=== PATIENT | female | born 1950 | race Caucasian/White ===

== ENCOUNTER 2016-03-23 13:00 | Emergency (ER) | payer MEDICARE, MEDICAID ==
[2016-03-23] MEDS ORDERED: DIAZEPAM 5 MG TABLET PO ONE (13:33)
[2016-03-23 14:21] LABS: ABSOLUTE LYMPHOCYTES (AUTO) 0.6 10^3/uL (0.5-4.7); ABSOLUTE MONOCYTES (AUTO) 0.4 10^3/uL (0.1-1.4); ABSOLUTE NEUT (AUTO) 6.6 10^3/uL (1.7-8.2); BASOPHILS % (AUTO) 0.2 % (0-2); EOSINOPHILS % (AUTO) 0.2 % (0-6); HEMATOCRIT 37.7 % (36.0-47.0); HEMOGLOBIN 12.7 g/dL (12.0-15.5); HGB HCT DIFFERENCE 0.4; LYMPHOCYTES % (AUTO) 7.9 % (13-45); MEAN CORPUSCULAR HEMOGLOBIN 30.2 pg (27.0-33.4); MEAN CORPUSCULAR HGB CONC 33.7 g/dL (32.0-36.0); MEAN CORPUSCULAR VOLUME 90 fl (80-97); MONOCYTES % (AUTO) 4.8 % (3-13); RED CELL DISTRIBUTION WIDTH 15.7 % (11.5-14.0); SEGMENTED NEUTROPHILS % (AUTO) 86.9 % (42-78); WHITE BLOOD COUNT 7.6 10^3/uL (4.0-10.5)
[2016-03-23 14:33] LABS: ALANINE AMINOTRANSFERASE 22 U/L (9-52); ALBUMIN 3.4 g/dL (3.5-5.0); ALKALINE PHOSPHATASE 134 U/L (38-126); ANION GAP 15 (5-19); ASPARTATE AMINO TRANSFERASE 28 U/L (14-36); BILIRUBIN,TOTAL 0.5 mg/dL (0.2-1.3); BLOOD UREA NITROGEN 15 mg/dL (7-20); CALCIUM 9.4 mg/dL (8.4-10.2); CARBON DIOXIDE 20 mmol/L (22-30); CHLORIDE 102 mmol/L (98-107); CREATINE KINASE 379 U/L (30-135); CREATININE RESULT 1.31 mg/dL (0.52-1.25); GLUCOSE 101 mg/dL (75-110); POTASSIUM 4.4 mmol/L (3.6-5.0); SODIUM 136.9 mmol/L (137-145); TOTAL PROTEIN 6.7 g/dL (6.3-8.2)
[2016-03-23 14:45] LABS: CREATINE KINASE MB 2.29 ng/mL (<4.55)
[2016-03-23 14:46] LABS: TROPONIN I < 0.012 ng/mL
[2016-03-23] MEDS ORDERED: HYDROMORPHONE HCL INJ/PF 2 MG/ML AMPULE IV ONE ×3 (14:48→17:38)
[2016-03-23] MEDS: MAGNESIUM SULFATE/D5W 100 ML IV SCH ×2 (18:34→20:47)
[2016-03-23] MEDS ORDERED: MAGNESIUM OXIDE 400 MG TABLET PO ONE (21:03)
--- NOTE | 2016-03-23 21:05 | ER Document Report ---
[id number]: This is 65-year-old female with a ileostomy due to Crohn's disease who presents stating she's had increased ileostomy output and is dehydrated and having muscle cramps. She states she's having diffuse arm and leg cramps, particularly in her feet which is relieved by standing up. She states she is restless and unable to sit still due to her cramping. She's had no fever. No vomiting. She denies abdominal pain. No recent antibiotic use. She states the bag is filling up several times a day which is unusual for her. She states the fluid is been green and watery. No blood. TRAVEL OUTSIDE OF THE [place] IN LAST 30 DAYS: No - Related Data Allergies/Adverse Reactions: codeine Allergy (Verified 03/23/16 21:08) pregabalin [From Lyrica] Allergy (Verified 03/23/16 21:08) Past Medical History - General Information source: Patient - Social History Smoking Status: Unknown if Ever Smoked Frequency of alcohol use: None Drug Abuse: None Family History: None Pulmonary Medical History: Reports: Hx COPD GI Medical History: Reports: Hx Crohn's Disease, Hx Gastroesophageal Reflux Disease Skin Medical History: Reports Hx MRSA Past Surgical History: Reports: Hx Abdominal Surgery - ostomy, Hx Cholecystectomy, Hx Hysterectomy, Hx Orthopedic Surgery - feet - Immunizations Hx Diphtheria, Pertussis, Tetanus Vaccination: No Review of Systems - Review of Systems Constitutional: Malaise, Weakness. denies: Fever Cardiovascular: Lightheaded. denies: Chest pain Respiratory: denies: Short of breath Gastrointestinal: denies: Vomiting, Blood streaked bowels Genitourinary: denies: Retention Musculoskeletal: denies: Leg swelling Hematologic/Lymphatic: denies: Swollen glands Neurological/Psychological: denies: Numbness, Tingling Physical Exam - Vital signs Vitals: Resp Pulse Ox 18 88 L 03/23/16 13:25 03/23/16 13:25 - General General appearance: Alert, Anxious - HEENT Head: Normocephalic Pupils: PERRL Mucous membranes: Normal Pharynx: Normal Neck: Normal - Respiratory Respiratory status: No respiratory distress Breath sounds: Normal - Cardiovascular Rhythm: Regular - Abdominal Inspection: Normal Distension: No distension Bowel sounds: Normal Tenderness: Nontender, Other - ostomy with watery green output - Back Back: Normal - Extremities General upper extremity: Normal inspection. No: Edema General lower extremity: Normal inspection. No: Edema - Neurological Neuro grossly intact: Yes Orientation: AAOx4 - Psychological Associated symptoms: Anxious - Skin Skin Temperature: Warm Skin Moisture: Dry Skin Color: Normal Course - Re-evaluation Re-evalutation: 03/23/16 22:12 Patient is well-appearing but anxious, restless, repeatedly asking for Dilaudid. I initially gave her 0.5 and she states "that's just a drop of water. " Patient found to be hypomagnesemic. The magnesium was repleted in the ER both IV and oral route. Patient is feeling better. She will be discharged home. She can follow-up regarding her increased output from ostomy if it persists. - Vital Signs Vital signs: Temp Pulse Resp BP Pulse Ox 98.1 F 16 93/68 L 96 03/23/16 21:50 03/23/16 21:48 03/23/16 21:48 03/23/16 21:48 - Laboratory Result Diagrams: 03/23/16 13:30 03/23/16 13:30 Laboratory results interpreted by me: 03/23/16 03/23/16 03/23/16 13:30 13:30 13:30 RDW 15.7 H Seg Neutrophils % 86.9 H Lymphocytes % 7.9 L Sodium 136.9 L Carbon Dioxide 20 L Creatinine 1.31 H Est GFR ( Amer) 50 L Est GFR (Non-Af Amer) 41 L Magnesium 1.3 L Alkaline Phosphatase 134 H Creatine Kinase 379 H Albumin 3.4 L Urine Protein 03/23/16 20:53 RDW Seg Neutrophils % Lymphocytes % Sodium Carbon Dioxide Creatinine Est GFR ( Amer) Est GFR (Non-Af Amer) Magnesium Alkaline Phosphatase Creatine Kinase Albumin Urine Protein 30 H Discharge - Discharge Clinical Impression: Hypomagnesemia, Muscle cramping Condition: Stable Disposition: HOME, SELF-CARE Additional Instructions: your magnesium level was low. Follow up with your doctor tomorrow for further evaluation of your increased ostomy output. Return if you have fever, increased pain or any new concerns. Prescriptions: Magnesium Oxide 400 mg PO DAILY #5 tablet Referrals: ENMANUEL SANCHEZ PA-C [Primary Care Provider] - Follow up as needed
[2016-03-23 21:51] VITALS: BP 93/68
[2016-03-23 21:57] LABS: APPEARANCE,URINE CLEAR; BILIRUBIN,URINE NEGATIVE (NEGATIVE); GLUCOSE, URINE NEGATIVE (NEGATIVE); KETONES,URINE NEGATIVE (NEGATIVE); LEUKOCYTE ESTERASE,URINE NEGATIVE (NEGATIVE); NITRITE,URINE NEGATIVE (NEGATIVE); PROTEIN,URINE 30 mg/dL (NEGATIVE); URINE SPECIFIC GRAVITY 1.046; UROBILINOGEN,URINE NEGATIVE mg/dL (<2.0)
--- NOTE | 2016-03-24 09:43 | EKG REPORT ---
SEVERITY:- ABNORMAL ECG - SINUS RHYTHM CHRISTOPHE, CONSIDER BIATRIAL ABNORMALITIES PROBABLE LEFT VENTRICULAR HYPERTROPHY : Confirmed by: Fozia Hooks MD 24-Mar-2016 09:42:07
== END 2016-03-23 22:10 | disposition home or self-care (01) ==
LOC: ER 13:00
DX: E83.42 Hypomagnesemia (principal); R25.2 Cramp and spasm; F41.9 Anxiety disorder, unspecified; R53.1 Weakness; J44.9 Chronic obstructive pulmonary disease, unspecified; K50.90 Crohn's disease, unspecified, without complications; K21.9 Gastro-esophageal reflux disease without esophagitis; Z86.14 Personal history of Methicillin resistant Staphylococcus aureus infection; Z90.49 Acquired absence of other specified parts of digestive tract; Z90.710 Acquired absence of both cervix and uterus; Z88.6 Allergy status to analgesic agent; Z93.2 Ileostomy status
CPT/HCPCS: 93005; 36591; 96376; 99285; 51701; 96375; 96365; 96366; 36415; 82553; 82550; 83735; 85025; 80053; 81001; 84484; 71010; 74177; 93010; A9270 ×2; J1170; J3475

== ENCOUNTER 2016-06-26 21:48 | Emergency (ER) | payer MEDICARE, MEDICAID ==
--- NOTE | 2016-06-26 22:18 | ER Document Report ---
ED GI/ - General Mode of Arrival: Medic Information source: Patient TRAVEL OUTSIDE OF THE [place] IN LAST 30 DAYS: No - HPI Patient complains to provider of: Diarrhea Associated symptoms: Other - See above <DOUGLAS ALBERTS - Last Filed: 06/27/16 03:27> <TONIA ELLIS - Last Filed: 06/28/16 21:15> - General Chief Complaint: Diarrhea Stated Complaint: diarrhea Notes: Patient is a 66 year old female, with a past medical history including Crohn's disease, who presents to the emergency department via EMS from [facility] complaining of diarrhea. Patient has an ileostomy that has been filling up recently with mostly liquid, about every 15 minutes. Patient states the ileostomy was done about 20 years ago and was revised about 2 years ago. Last week patient had an endoscopy performed by Dr Lambert and was told she had some cholitis in her stomach. Patient also complains of constant muscle cramping and RUQ abdominal pain. Patient admits to having poor fluid intake which she blames on pain from her pancreatitis. Patient states she is at [facility] because she is unable to care for herself properly. (DOUGLAS ALBERTS) - Related Data Allergies/Adverse Reactions: codeine Allergy (Verified 03/23/16 21:08) pregabalin [From Lyrica] Allergy (Verified 03/23/16 21:08) Past Medical History - General Information source: Patient - Social History Smoking Status: Unknown if Ever Smoked Family History: None, Reviewed & Not Pertinent Pulmonary Medical History: Reports: Hx COPD GI Medical History: Reports: Hx Crohn's Disease, Hx Gastroesophageal Reflux Disease Skin Medical History: Reports Hx MRSA Past Surgical History: Reports: Hx Abdominal Surgery - ostomy, Hx Cholecystectomy, Hx Hysterectomy, Hx Orthopedic Surgery - feet - Immunizations Hx Diphtheria, Pertussis, Tetanus Vaccination: No <DOUGLAS ALBERTS - Last Filed: 06/27/16 03:27> Review of Systems - Review of Systems Constitutional: No symptoms reported EENT: No symptoms reported Cardiovascular: No symptoms reported Respiratory: No symptoms reported Gastrointestinal: See HPI, Abdominal pain, Diarrhea, Poor fluid intake Genitourinary: No symptoms reported Female Genitourinary: No symptoms reported Musculoskeletal: See HPI, Other - muscle cramps Skin: No symptoms reported Hematologic/Lymphatic: No symptoms reported Neurological/Psychological: No symptoms reported -: Yes All other systems reviewed and negative <DOUGLAS ALBERTS - Last Filed: 06/27/16 03:27> Physical Exam - Vital signs Interpretation: Normal - General General appearance: Appears well, Alert - HEENT Head: Normocephalic, Atraumatic - Respiratory Respiratory status: No respiratory distress Chest status: Nontender Breath sounds: Normal Chest palpation: Normal - Cardiovascular Rhythm: Regular Heart sounds: Normal auscultation Murmur: No - Abdominal Inspection: Normal, Other - normal output in ileostomy bag Distension: No distension Bowel sounds: Normal Tenderness: Nontender. No: Guarding, Rebound, Other - rigidity Organomegaly: No organomegaly - Extremities General upper extremity: Normal inspection General lower extremity: Normal inspection - Neurological Neuro grossly intact: Yes Cognition: Normal Orientation: AAOx4 Kiran Coma Scale Eye Opening: Spontaneous [place] Coma Scale Verbal: Oriented [place] Coma Scale Motor: Obeys Commands [place] Coma Scale Total: 15 Speech: Normal - Psychological Associated symptoms: Normal affect, Normal mood - Skin Skin Temperature: Warm Skin Moisture: Dry Skin Color: Normal <DOUGLAS ALBERTS - Last Filed: 06/27/16 03:27> Course - Laboratory Result Diagrams: 06/26/16 22:00 06/26/16 22:00 <DOUGLAS ALBERTS - Last Filed: 06/27/16 03:27> - Laboratory Result Diagrams: 06/26/16 22:00 06/26/16 22:00 <TONIA ELLIS - Last Filed: 06/28/16 21:15> - Re-evaluation Re-evalutation: 06/27/16 00:21 presents emergency Department with a chief complaint of chronic abdominal pain secondary to Crohn's disease she says she's in a detention because she hasn' t taking care of herself. She has an ileostomy placed for Crohn's greater than 20 years ago which has been revised as recently as a year ago. She sees GI here and just saw last week with a scope. On ED arrival she denies any abdominal pain says that her legs are cramping and her toes are cramping and it wakes her up in the middle the night. Asked her she was drinking plenty of fluids and she is refusing to drink water at the [facility]. She's not had any vomiting. She is demanding narcotics for these muscle cramps which I told her I'm not going to do. Her belly is soft her ileostomy has decent output there is no associated blood in it so guarding rebound rigidity or obstruction. Patient very verbally abusive to the nurse attempted to get her blood drawn labs. She kicked the nurse when the nurse was trying to get a urine specimen so the nurse backed off. Patient is refusing a urine specimen at this time. Labs are nonacute no acute clinical concerns for surgical abdomen. Will be discharged to home oral hydration for primary care physician in one to 2 days and discussed reasons for ED return sooner 06/27/16 00:28 (TONIA ELLIS) - Vital Signs Vital signs: Temp Pulse Resp BP Pulse Ox 99.0 F 79 16 114/76 96 06/27/16 01:50 06/27/16 01:50 06/27/16 01:50 06/27/16 01:50 06/27/16 01:50 - Laboratory Laboratory results interpreted by me: 06/26/16 06/26/16 22:00 22:00 RDW 14.5 H Seg Neutrophils % 82.5 H Lymphocytes % 8.4 L Carbon Dioxide 17 L Anion Gap 22 H Creatinine 1.87 H Est GFR ( Amer) 33 L Est GFR (Non-Af Amer) 27 L Glucose 142 H Total Protein 8.4 H Discharge <DOUGLAS ALBERTS - Last Filed: 06/27/16 03:27> <TONIA ELLIS - Last Filed: 06/28/16 21:15> - Discharge Clinical Impression: increased ileostomy output, chronic pain with history of Crohn's Condition: Stable Disposition: HOME, SELF-CARE Referrals: ENMANUEL SANCHEZ PA-C [Primary Care Provider] - Follow up tomorrow (In one to 2 days return for increasing worsening or new symptoms) Scribe Attestation: 06/28/16 21:15 i personally performed the services described in the documentation, reviewed the documentation recorded by my scribe in my presence and accurately and completely records my words and actions (TONIA ELLIS) Scribe Documentation - Scribe Written by Wilber:: wilber Nolasco, 06/27/16, 0124 acting as scribe for :: Primitivo <DOUGLAS ALBERTS - Last Filed: 06/27/16 03:27>
[2016-06-26] MEDS ORDERED: NORMAL SALINE 500 ML IV ONE (22:26)
[2016-06-26 22:32] LABS: ABSOLUTE LYMPHOCYTES (AUTO) 0.6 10^3/uL (0.5-4.7); ABSOLUTE MONOCYTES (AUTO) 0.6 10^3/uL (0.1-1.4); BASOPHILS % (AUTO) 0.2 % (0-2); EOSINOPHILS % (AUTO) 0.7 % (0-6); HEMATOCRIT 41.6 % (36.0-47.0); HEMOGLOBIN 13.8 g/dL (12.0-15.5); HGB HCT DIFFERENCE -0.2; LYMPHOCYTES % (AUTO) 8.4 % (13-45); MEAN CORPUSCULAR HEMOGLOBIN 31.1 pg (27.0-33.4); MEAN CORPUSCULAR VOLUME 94 fl (80-97); MONOCYTES % (AUTO) 8.2 % (3-13); RED BLOOD COUNT 4.42 10^6/uL (3.72-5.28); RED CELL DISTRIBUTION WIDTH 14.5 % (11.5-14.0); SEGMENTED NEUTROPHILS % (AUTO) 82.5 % (42-78); WHITE BLOOD COUNT 7.2 10^3/uL (4.0-10.5)
[2016-06-26 22:36] LABS: ALANINE AMINOTRANSFERASE 23 U/L (9-52); ALBUMIN 4.9 g/dL (3.5-5.0); ALKALINE PHOSPHATASE 125 U/L (38-126); ASPARTATE AMINO TRANSFERASE 33 U/L (14-36); BILIRUBIN,DIRECT 0.3 mg/dL (0.0-0.4); BILIRUBIN,TOTAL 0.4 mg/dL (0.2-1.3); BLOOD UREA NITROGEN 15 mg/dL (7-20); CALCIUM 9.9 mg/dL (8.4-10.2); CARBON DIOXIDE 17 mmol/L (22-30); CHLORIDE 105 mmol/L (98-107); CREATININE RESULT 1.87 mg/dL (0.52-1.25); GLUCOSE 142 mg/dL (75-110); LIPASE 97.9 U/L (23-300); POTASSIUM 3.8 mmol/L (3.6-5.0); SODIUM 144.1 mmol/L (137-145); TOTAL PROTEIN 8.4 g/dL (6.3-8.2)
[2016-06-26 22:45] LABS: ANION GAP 22 (5-19)
[2016-06-27] MEDS ORDERED: HEPARIN SOD (PORCINE) 1 UNIT/ML PF 3 ML SYRINGE IV ONE (01:42)
[2016-06-27 01:59] VITALS: BP 114/76
== END 2016-06-27 02:00 | disposition home or self-care (01) ==
LOC: ER 21:48
DX: K50.90 Crohn's disease, unspecified, without complications (principal); R19.7 Diarrhea, unspecified; R10.11 Right upper quadrant pain; G89.29 Other chronic pain; K85.90 Acute pancreatitis without necrosis or infection, unspecified; M62.838 Other muscle spasm; J44.9 Chronic obstructive pulmonary disease, unspecified; Z93.2 Ileostomy status; Z88.5 Allergy status to narcotic agent; Z88.6 Allergy status to analgesic agent; Z86.14 Personal history of Methicillin resistant Staphylococcus aureus infection; Z90.49 Acquired absence of other specified parts of digestive tract; Z90.710 Acquired absence of both cervix and uterus; Z98.890 Other specified postprocedural states
CPT/HCPCS: 36415; 36591; 74022; 80053; 83690; 85025; 99285

== ENCOUNTER 2016-06-27 23:07 | Inpatient (IN) | payer MEDICARE, MEDICAID ==
[2016-06-27] MEDS ORDERED: NORMAL SALINE 1000 ML 1,000 ML IV ONE (23:22)
[2016-06-27] MEDS ORDERED: DICYCLOMINE HCL INJ 20 MG/2 ML AMPULE IM ONE (23:22)
[2016-06-27] MEDS ORDERED: ONDANSETRON HCL INJ/PF 4 MG/2 ML SDV IV ONE (23:23)
--- NOTE | 2016-06-27 23:27 | ER Document Report ---
ED General - General Stated Complaint: POSSIBLE DEHYDRATION Notes: Patient is a 66 year old female who presents with complaint of possibly being dehydrated. She also has abdominal cramping and pain. She is requesting pain medication. She seen yesterday. At that time she was not given opiate pain medicines and apparently became very agitated and angry. She says she [facility]. She says that the water goes right through her and into her colostomy bag because of her history of short-bowel syndrome. It is reported in yesterday's records and she recently had scope by the GI physician and that she has some inflammation of her bowel. She is unsure if she is on a new medications. She denies any blood in her stool. No vomiting. No fevers. No other complaints at this time. The chief complaints from also how some animals run sheet is of altered mental status however the patient answers all my questions appropriately and does not seem at all confused or altered. TRAVEL OUTSIDE OF THE [place] IN LAST 30 DAYS: No - Related Data Allergies/Adverse Reactions: codeine Allergy (Verified 03/23/16 21:08) pregabalin [From Lyrica] Allergy (Verified 03/23/16 21:08) Past Medical History - Social History Smoking Status: Unknown if Ever Smoked Frequency of alcohol use: None Drug Abuse: None Family History: None, Reviewed & Not Pertinent Pulmonary Medical History: Reports: Hx COPD GI Medical History: Reports: Hx Crohn's Disease, Hx Gastroesophageal Reflux Disease Skin Medical History: Reports Hx MRSA Past Surgical History: Reports: Hx Abdominal Surgery - ostomy, Hx Cholecystectomy, Hx Hysterectomy, Hx Orthopedic Surgery - feet - Immunizations Hx Diphtheria, Pertussis, Tetanus Vaccination: No Review of Systems - Review of Systems Notes: My Normal Review Basic REVIEW OF SYSTEMS: CONSTITUTIONAL : Denies fever, chills, or sweats. Denies recent illness. EENT: Denies eye, ear, throat, or mouth pain or symptoms. Denies nasal or sinus congestion. CARDIOVASCULAR: Denies chest pain. RESPIRATORY: Denies cough, cold, or chest congestion. Denies shortness of breath, difficulty breathing, or wheezing. GASTROINTESTINAL: Intermittent abdominal pain. Nausea, no vomiting. GENITOURINARY: Denies difficulty urinating, painful urination, burning, frequency, or blood in urine. MUSCULOSKELETAL: Denies neck or back pain or joint pain or swelling. SKIN: Denies rash or skin lesions. NEUROLOGICAL: Denies altered mental status or loss of consciousness. Denies headache. Denies weakness or paralysis or loss of use of either side. Denies problems with gait or speech. Denies sensory or motor loss. ALL OTHER SYSTEMS REVIEWED AND NEGATIVE. Physical Exam - Vital signs Vitals: Temp Pulse Resp BP Pulse Ox 97.5 F 84 16 136/81 H 95 06/27/16 23:39 06/27/16 23:39 06/27/16 23:39 06/27/16 23:39 06/27/16 23:39 - Notes Notes: General Appearance: Thin, alert, cooperative, no acute distress, no obvious discomfort. Vitals: reviewed, See vital signs table. Head: no swelling or tenderness to the head Eyes: PERRL, EOMI, Conjuctiva clear Mouth: No decreasd moisture Neck: Supple, no neck tenderness, No thyromegaly Lungs: No wheezing, No rales, No rhonci, No accessory muscle use, good air exchange bilaterally. Heart: Normal rate, Regular rythm, No murmur, no rub Abdomen: Normal BS, soft, No rigidity, mild diffuse abdominal tenderness to palpation, patient has colostomy back in the left lower quadrant with liquid stool. Stool is brown in color. No gross blood. No guarding, no rebound, no abdominal masses, no organomegaly Extremities: strength 5/5 in all extremities, good pulses in all extremities, no swelling or tenderness in the extremities, no edema. Skin: warm, dry, appropriate color, no rash Neuro: speech clear, oriented x 3, normal affect, responds appropriately to questions. Course - Vital Signs Vital signs: Temp Pulse Resp BP Pulse Ox 97.5 F 84 16 136/81 H 95 06/27/16 23:39 06/27/16 23:39 06/27/16 23:39 06/27/16 23:39 06/27/16 23:39 - Laboratory Result Diagrams: 06/28/16 00:50 06/28/16 05:30 Laboratory results interpreted by me: 06/28/16 06/28/16 06/28/16 00:20 00:20 00:50 WBC 14.2 H Hgb 15.7 H RDW 14.7 H Seg Neutrophils % 85.3 H Lymphocytes % 6.8 L Absolute Neutrophils 12.1 H Sodium 135.5 L Chloride 91 L Carbon Dioxide 11 L Anion Gap 34 H BUN 32 H Creatinine 5.27 H Est GFR ( Amer) 10 L Est GFR (Non-Af Amer) 8 L Glucose 146 H Calcium Direct Bilirubin 0.5 H AST 84 H Alkaline Phosphatase 167 H Creatine Kinase 3970 H Total Protein 10.5 H Albumin 5.4 H 06/28/16 05:30 WBC Hgb RDW Seg Neutrophils % Lymphocytes % Absolute Neutrophils Sodium Chloride Carbon Dioxide 15 L Anion Gap 21 H BUN 34 H Creatinine 4.27 H Est GFR ( Amer) 13 L Est GFR (Non-Af Amer) 10 L Glucose Calcium 7.6 L Direct Bilirubin AST Alkaline Phosphatase Creatine Kinase Total Protein Albumin - EKG Interpretation by Me Additional EKG results interpreted by me: 06/27/16 23:38 EKG is reviewed and interpreted by me. EKG shows normal sinus rhythm with rate of [address] segment elevation or depression. Slight T-wave inversion in lead 1. Nonspecific. [place] interval and QT intervals are within normal range. QRS duration is slightly prolonged. Old EKG for comparison is from 03/23/2016. - Transfer of Care Notes: 06/28/16 01:30 Patient is feeling somewhat improved but still some pain. I will give her some pain medication. She subsequently very dehydrated and that her creatinine is now 5. I suspect this is because of how put from her ostomy sprightly and severe dehydration. I've ordered a second bag of IV fluids once the first bag is done. We'll send her for a noncontrasted CT scan. Abdomen is still soft but tender to palpation. 06/28/16 06:57 CT scan was negative for any acute pathology. Patient is admitted for dehydration, acute renal failure, and metabolic acidosis. Dictation of this chart was performed using voice recognition software; therefore, there may be some unintended grammatical errors. Discharge - Discharge Clinical Impression: Dehydration, Metabolic acidosis Acute renal failure Qualifiers: Acute renal failure type: unspecified Qualified Code(s): N17.9 - Acute kidney failure, unspecified Disposition: ADMITTED INPATIENT Admitting Provider: Hospitalist Unit Admitted: [facility]
[2016-06-27] MEDS ORDERED: MAGNESIUM SULFATE/D5W 100 ML IV SCH (23:30)
--- NOTE | 2016-06-27 23:43 | EKG REPORT ---
SEVERITY:- ABNORMAL ECG - SINUS RHYTHM ATRIAL PREMATURE COMPLEX PROBABLE LEFT ATRIAL ABNORMALITY NONSPECIFIC INTRAVENTRICULAR CONDUCTION DELAY LVH WITH SECONDARY REPOLARIZATION ABNORMALITY BORDERLINE INFERIOR Q WAVES : Confirmed by: Darron Carranza 27-Jun-2016 23:43:05
[2016-06-28 00:38] LABS: ALANINE AMINOTRANSFERASE 33 U/L (9-52); ALBUMIN 5.4 g/dL (3.5-5.0); ALKALINE PHOSPHATASE 167 U/L (38-126); ASPARTATE AMINO TRANSFERASE 84 U/L (14-36); BILIRUBIN,DIRECT 0.5 mg/dL (0.0-0.4); BILIRUBIN,TOTAL 0.5 mg/dL (0.2-1.3); BLOOD UREA NITROGEN 32 mg/dL (7-20); CALCIUM 10.1 mg/dL (8.4-10.2); CARBON DIOXIDE 11 mmol/L (22-30); CHLORIDE 91 mmol/L (98-107); CREATININE RESULT 5.27 mg/dL (0.52-1.25); GLUCOSE 146 mg/dL (75-110); LIPASE 116.8 U/L (23-300); MAGNESIUM 2.3 mg/dL (1.6-2.3); POTASSIUM 4.3 mmol/L (3.6-5.0); SODIUM 135.5 mmol/L (137-145); TOTAL PROTEIN 10.5 g/dL (6.3-8.2)
[2016-06-28 00:51] LABS: ANION GAP 34 (5-19)
[2016-06-28 00:56] LABS: ABSOLUTE MONOCYTES (AUTO) 1.1 10^3/uL (0.1-1.4); ABSOLUTE NEUT (AUTO) 12.1 10^3/uL (1.7-8.2); BASOPHILS % (AUTO) 0.3 % (0-2); EOSINOPHILS % (AUTO) 0.1 % (0-6); HEMOGLOBIN 15.7 g/dL (12.0-15.5); HGB HCT DIFFERENCE 0.1; LYMPHOCYTES % (AUTO) 6.8 % (13-45); MEAN CORPUSCULAR HEMOGLOBIN 31.5 pg (27.0-33.4); MEAN CORPUSCULAR HGB CONC 33.4 g/dL (32.0-36.0); MEAN CORPUSCULAR VOLUME 94 fl (80-97); MONOCYTES % (AUTO) 7.5 % (3-13); RED BLOOD COUNT 4.99 10^6/uL (3.72-5.28); RED CELL DISTRIBUTION WIDTH 14.7 % (11.5-14.0); SEGMENTED NEUTROPHILS % (AUTO) 85.3 % (42-78); WHITE BLOOD COUNT 14.2 10^3/uL (4.0-10.5)
[2016-06-28] MEDS ORDERED: HYDROMORPHONE HCL INJ/PF 2 MG/ML AMPULE IV ONE (01:27)
[2016-06-28] MEDS ORDERED: NORMAL SALINE 1000 ML 1,000 ML IV ONE (01:27)
[2016-06-28] MEDS ORDERED: IPRATROPIUM/ALBUTEROL 0.5-2.5 MG/3 ML AMPUL NEB PRN (05:31)
--- NOTE | 2016-06-28 05:55 | PDOC H&P ---
History of Present Illness Admission Date/PCP: 06/28/16 04:55 ENMANUEL SANCHEZ PA-C Patient complains of: Pain all over, increased ostomy output History of Present Illness: DONALD ALBRIGHT is a 66 year old female with a past medical history of severe Crohn's disease and remote ileectomy and total colectomy, who is been her usual state of health until approximately a week ago noting bilateral lower extremity edema which subsequently resolved followed by increased ostomy output and muscle cramping prompting her to seek evaluation emergency room. She denies fever chills nausea vomiting. She denies any recent change in medications denies diuretics or recent infection. In the emergency room she's found to have acute renal failure with a creatinine of 1.2 from 1.1 just 5 days ago. Remarkably potassium and magnesium are within normal limits, a UA is pending. She's been ordered symptomatically management and IV fluids and referred to the hospitalist for admission Past Medical History Pulmonary Medical History: Reports: Chronic Obstructive Pulmonary Disease (COPD) GI Medical History: Reports: Crohn's Disease, Gastroesophageal Reflux Disease Past Surgical History Past Surgical History: Reports: Cholecystectomy, Hysterectomy, Orthopedic Surgery - feet Social History Information Source: Patient Lives with: Prison Smoking Status: Unknown if Ever Smoked - Advance Directive Resuscitation Status: Full Code Family History Family History: None Parental Family History Reviewed: Yes Children Family History Reviewed: Yes Sibling(s) Family History Reviewed.: Yes Medication/Allergy Home Medications: Magnesium Oxide 400 mg PO DAILY #5 tablet 03/23/16 Allergies/Adverse Reactions: codeine Allergy (Verified 03/23/16 21:08) pregabalin [From Lyrica] Allergy (Verified 03/23/16 21:08) Review of Systems Constitutional: PRESENT: anorexia, fatigue, weakness, weight loss Eyes: ABSENT: visual disturbances Ears: ABSENT: hearing changes Cardiovascular: ABSENT: chest pain, dyspnea on exertion, edema, orthropnea, palpitations Respiratory: ABSENT: cough, hemoptysis Gastrointestinal: PRESENT: abdominal pain, bloating, diarrhea, heartburn, nausea. ABSENT: coffee ground emesis, constipation, dysphagia, hematemesis, hematochezia, melena, vomiting Genitourinary: ABSENT: dysuria, hematuria Musculoskeletal: PRESENT: back pain, other - Diffuse muscle pain and cramping Integumentary: ABSENT: rash, wounds Neurological: ABSENT: abnormal gait, abnormal speech, confusion, dizziness, focal weakness, syncope Psychiatric: ABSENT: anxiety, depression, homidical ideation, suicidal ideation Endocrine: ABSENT: cold intolerance, heat intolerance, polydipsia, polyuria Hematologic/Lymphatic: ABSENT: easy bleeding, easy bruising Physical Exam Vital Signs: Temp Pulse Resp BP Pulse Ox 97.5 F 84 16 136/81 H 95 06/27/16 23:39 06/27/16 23:39 06/27/16 23:39 06/27/16 23:39 06/27/16 23:39 General appearance: PRESENT: cooperative, mild distress, thin Head exam: PRESENT: atraumatic, normocephalic Eye exam: PRESENT: conjunctiva pale, EOMI, PERRLA. ABSENT: scleral icterus Ear exam: PRESENT: normal external ear exam Mouth exam: PRESENT: dry mucosa, neck supple, tongue midline. ABSENT: laceration Neck exam: ABSENT: carotid bruit, JVD, lymphadenopathy, thyromegaly Respiratory exam: PRESENT: clear to auscultation heydi. ABSENT: rales, rhonchi, wheezes Cardiovascular exam: PRESENT: RRR. ABSENT: diastolic murmur, rubs, systolic murmur Pulses: PRESENT: normal dorsalis pedis pul Vascular exam: PRESENT: normal capillary refill GI/Abdominal exam: PRESENT: diminished bowel sounds, soft, tenderness. ABSENT: ascites, distended, firm, guarding Rectal exam: PRESENT: deferred Extremities exam: PRESENT: full ROM. ABSENT: calf tenderness, clubbing, pedal edema Neurological exam: PRESENT: alert, awake, oriented to person, oriented to place , oriented to time, oriented to situation, CN II-XII grossly intact. ABSENT: motor sensory deficit Psychiatric exam: PRESENT: appropriate affect, normal mood. ABSENT: homicidal ideation, suicidal ideation Skin exam: PRESENT: dry, intact, warm. ABSENT: cyanosis, rash Results Laboratory Results: 06/28/16 05:30 06/28/16 05:30 Sodium Cancelled Potassium Cancelled Chloride Cancelled Carbon Dioxide Cancelled Anion Gap Cancelled BUN Cancelled Creatinine Cancelled Est GFR ( Amer) Cancelled Est GFR (Non-Af Amer) Cancelled Glucose Cancelled Calcium Cancelled Impressions: Abdomen/Pelvis CT 06/28/16 01:27 IMPRESSION: No acute or suspicious findings. Prior colectomy/ostomy. Assessment & Plan - Diagnosis (1) Crohn's disease, acute Is this a current diagnosis for this admission?: YesPlan: Solu-Medrol, symptomatic management, IV fluid and electrolyte repletion, GI consultation (2) Short bowel syndrome Is this a current diagnosis for this admission?: YesPlan: IV H2 arnel, Please see above (3) Acute renal failure Qualifiers: Acute renal failure type: unspecified Qualified Code(s): N17.9 - Acute kidney failure, unspecified Is this a current diagnosis for this admission?: YesPlan: Unclear cause urinalysis pending, avoiding nephrotoxic meds and doses IV fluid challenge empiric stress dose steroids and nephrology consultation (4) Dehydration Is this a current diagnosis for this admission?: YesPlan: Please see above IV fluid challenge reevaluation chemistry - Time Time Spent: 50 to 70 Minutes - Inpatient Certification Medical Necessity: Need Close Monitoring Due to Risk of Patient Decompensation
[2016-06-28 06:10] LABS: BLOOD UREA NITROGEN 34 mg/dL (7-20); CALCIUM 7.6 mg/dL (8.4-10.2); CARBON DIOXIDE 15 mmol/L (22-30); CHLORIDE 101 mmol/L (98-107); CREATININE RESULT 4.27 mg/dL (0.52-1.25); GLUCOSE 101 mg/dL (75-110); LIPASE 73.1 U/L (23-300); POTASSIUM 4.3 mmol/L (3.6-5.0); SODIUM 137.1 mmol/L (137-145)
[2016-06-28 06:26] LABS: ANION GAP 21 (5-19)
[2016-06-28 07:10] LABS: APPEARANCE,URINE TURBID; BILIRUBIN,URINE NEGATIVE (NEGATIVE); GLUCOSE, URINE NEGATIVE (NEGATIVE); KETONES,URINE NEGATIVE (NEGATIVE); LEUKOCYTE ESTERASE,URINE LARGE (NEGATIVE); NITRITE,URINE NEGATIVE (NEGATIVE); PROTEIN,URINE 100 mg/dL (NEGATIVE); URINE SPECIFIC GRAVITY 1.025; UROBILINOGEN,URINE NEGATIVE mg/dL (<2.0)
[2016-06-28] MEDS: NORMAL SALINE 1000 ML 1,000 ML IV SCH ×2 (09:22→11:23)
[2016-06-28] MEDS: FAMOTIDINE INJ/PF 20 MG/2 ML SDV IV SCH ×2 (09:23→21:20)
[2016-06-28] MEDS: METHYLPREDNISOLONE INJ 125 MG/2 ML SDV IV SCH ×2 (09:23→13:51)
[2016-06-28 11:16] LABS: ALBUMIN 4.3 g/dL (3.5-5.0); MAGNESIUM 1.8 mg/dL (1.6-2.3)
[2016-06-28] MEDS: MORPHINE SULFATE 10 MG/ML INJ IV PRN ×3 (11:23→21:20)
[2016-06-28] MEDS ORDERED: NORMAL SALINE 1000 ML 1,000 ML IV SCH (13:30)
--- NOTE | 2016-06-28 14:00 | PDOC PROGRESS REPORT ---
Subjective Progress Note for:: 06/28/16 Subjective:: The patient was seen earlier today on rounds. The patient states that she does feel a little better and she came in however the patient complains of persistent body ache and cramping sensations. The patient admits to nausea. The patient denies any vomiting, diarrhea, shortness of breath, dizziness, chest pain, heart palpitations, fevers, or chills. The patient has remained afebrile. Blood pressures have been in a good range. When prompted the patient voices no other concerns at this time. Review of systems: The rest of the review of systems is negative. Physical Exam Vital Signs: Temp Pulse Resp BP Pulse Ox 97.8 F 68 19 125/62 100 06/28/16 12:00 06/28/16 12:00 06/28/16 12:00 06/28/16 12:00 06/28/16 12:00 Intake & Output 06/26/16 06/27/16 06/28/16 23:59 23:59 23:59 Weight 56 kg General appearance: PRESENT: no acute distress, disheveled, well-developed, well -nourished Head exam: PRESENT: atraumatic, normocephalic Eye exam: PRESENT: conjunctiva pink, EOMI, PERRLA. ABSENT: scleral icterus Ear exam: PRESENT: normal external ear exam Mouth exam: PRESENT: moist, tongue midline Neck exam: ABSENT: carotid bruit, JVD, lymphadenopathy, thyromegaly Respiratory exam: PRESENT: clear to auscultation heydi, symmetrical, unlabored. ABSENT: rales, rhonchi, tachypnea, wheezes Cardiovascular exam: PRESENT: RRR. ABSENT: diastolic murmur, rubs, systolic murmur Pulses: PRESENT: normal dorsalis pedis pul Vascular exam: PRESENT: normal capillary refill GI/Abdominal exam: PRESENT: normal bowel sounds, soft. ABSENT: distended, guarding, mass, organolmegaly, rebound, tenderness Rectal exam: PRESENT: deferred Extremities exam: PRESENT: full ROM. ABSENT: calf tenderness, clubbing, pedal edema Neurological exam: PRESENT: alert, awake, oriented to person, oriented to place , oriented to time, oriented to situation, CN II-XII grossly intact. ABSENT: motor sensory deficit Psychiatric exam: PRESENT: agitated, anxious, normal mood. ABSENT: homicidal ideation, suicidal ideation Focused psych exam: PRESENT: restlessness Skin exam: PRESENT: dry, intact, warm. ABSENT: cyanosis, rash Results Laboratory Results: 06/28/16 06/28/16 05:55 10:30 Magnesium 1.8 Albumin 4.3 Urine Color YELLOW Urine Appearance TURBID Urine pH 5.0 Ur Specific [place] 1.025 Urine Protein 100 H Urine Glucose (UA) NEGATIVE Urine Ketones NEGATIVE Urine Blood LARGE H Urine Nitrite NEGATIVE Ur Leukocyte Esterase LARGE H Urine WBC (Auto) >182 Urine RBC (Auto) 79 Impressions: Abdomen/Pelvis CT 06/28/16 01:27 IMPRESSION: No acute or suspicious findings. Prior colectomy/ostomy. Assessment & Plan - Diagnosis (1) Crohn's disease, acute Qualifiers: Digestive disease complication type: unspecified complication Qualified Code(s): K50.919 - Crohn's disease, unspecified, with unspecified complications Is this a current diagnosis for this admission?: YesPlan: Will continue current steroids and continue to aggressively hydrate. Do appreciate GIs input with this. Will start the patient on a 5-ASA (2) Acute renal failure Qualifiers: Acute renal failure type: unspecified Qualified Code(s): N17.9 - Acute kidney failure, unspecified Is this a current diagnosis for this admission?: YesPlan: Will continue to aggressively hydrate 06/28/16 06/28/16 00:20 05:30 Creatinine 5.27 H 4.27 H (3) Metabolic acidosis Is this a current diagnosis for this admission?: YesPlan: The patient's CO2 is improving with hydration. Will repeat chemistry and follow. (4) Short bowel syndrome Is this a current diagnosis for this admission?: Yes (5) Opiate dependence, continuous Is this a current diagnosis for this admission?: YesPlan: The patient may have an element of underlying narcotic bowel. (6) Polypharmacy Is this a current diagnosis for this admission?: Yes (7) Benzodiazepine dependence, continuous Is this a current diagnosis for this admission?: YesPlan: Will continue home medications. (8) Gastroesophageal reflux disease Qualifiers: Esophagitis presence: esophagitis presence not specified Qualified Code(s): K21.9 - Gastro-esophageal reflux disease without esophagitis Is this a current diagnosis for this admission?: YesPlan: Will continue home medications. (9) COPD (chronic obstructive pulmonary disease) Qualifiers: COPD type: unspecified COPD Qualified Code(s): J44.9 - Chronic obstructive pulmonary disease, unspecified Is this a current diagnosis for this admission?: YesPlan: Will continue home medications. (10) Restless leg syndrome Is this a current diagnosis for this admission?: YesPlan: Will continue Mirapex - Time Time Spent with patient: 35 or more minutes Medications reviewed and adjusted accordingly: Yes Anticipated discharge: Home Within: within 72 hours
[2016-06-28] MEDS: HEPARIN SOD (PORCINE) 5,000 UNIT/ML 1 ML SYRINGE SUBCUT SCH ×2 (14:12→21:20)
[2016-06-28 14:22] LABS: ANION GAP 16 (5-19); BLOOD UREA NITROGEN 35 mg/dL (7-20); CARBON DIOXIDE 14 mmol/L (22-30); CHLORIDE 105 mmol/L (98-107); GLUCOSE 90 mg/dL (75-110); POTASSIUM 3.8 mmol/L (3.6-5.0); SODIUM 134.5 mmol/L (137-145)
[2016-06-28 14:37] LABS: CALCIUM 6.5 mg/dL (8.4-10.2)
[2016-06-28] MEDS: LIPASE/PROTEASE/AMYLASE 1 CAP CAPSULE.DR PO SCH ×3 (16:04)
[2016-06-28] MEDS ORDERED: DEXTROSE 5%-WATER 1000 ML 1,000 ML with SODIUM BICARBONATE 150 MEQ IV PRN ×2 (16:45)
[2016-06-28] MEDS ORDERED: CALCIUM GLUCONATE 1000 MG/10 ML INJ IV ONE (16:46)
[2016-06-28] MEDS: DULOXETINE HCL 30 MG CAPSULE.DR PO SCH (17:18)
[2016-06-28] MEDS: CALCIUM CARBONATE 500 MG TABLET PO SCH (17:18)
[2016-06-28] MEDS: POTASSIUM CHLORIDE 10 MEQ TABLET.SA PO SCH (17:18)
[2016-06-28] MEDS ORDERED: MESALAMINE 250 MG CAPSULE.SA PO SCH (18:00)
--- NOTE | 2016-06-28 18:38 | PDOC CONSULTATION ---
Consultation Consult Date: 06/28/16 History of Present Illness Admission Date/PCP: 06/28/16 05:31 ENMANUEL SANCHEZ PA-C History of Present Illness: This is a 66-year-old patient who was admitted on 06/28/2016 with generalized pain, abdominal cramps, and increased ileostomy output. According to the patient she has been having much increased output since last week. For the first few days she felt like she had a flu. Eventually she started having cramps in abdomen and also in her extremities. She was seen in the emergency room on 06/26/2016 when her creatinine was 1.87. It was normal at 1.14 on 06/23. By 06/28/2016 her creatinine has gone up to 5.27 with hyponatremia but normal potassium. She denies any new medication prior to the onset of her increased ostomy output. She had a CAT scan of the abdomen and pelvis and admission which was unremarkable. She had a total colectomy with ileostomy in 1990 and has done well overall though she does have problems with her ileostomy output off and on. She takes Lomotil to four times a day and tincture of opium four times a day. She has not needed any treatment for inflammatory bowel disease and there has not been any evidence of activity. Past Medical History Pulmonary Medical History: Reports: Chronic Obstructive Pulmonary Disease (COPD) GI Medical History: Reports: Crohn's Disease, Gastroesophageal Reflux Disease Psychiatric Medical History: Reports: Depression Past Surgical History Past Surgical History: EGD in May 2016 showing gastritis Past Surgical History: Reports: Cholecystectomy, Hysterectomy, Orthopedic Surgery - feet Social History Lives with: [facility] Smoking Status: Smoker,Current Status Unk Frequency of Alcohol Use: None Hx Recreational Drug Use: No Drugs: None Hx Prescription Drug Abuse: No - Advance Directive Resuscitation Status: Full Code Family History Family History: None, Reviewed & Not Pertinent Parental Family History Reviewed: No Children Family History Reviewed: NA Sibling(s) Family History Reviewed.: NA Medication/Allergy Home Medications: Acetaminophen [Mapap] 500 mg PO Q4HP PRN 06/28/16 Acetaminophen [Tylenol] 325 mg PO Q4HP PRN 06/28/16 Albuterol Sulfate [Proair Respiclick] 2 puff IH QIDP PRN 06/28/16 Aspirin [Aspirin EC] 81 mg PO DAILY 06/28/16 Cholecalciferol (Vitamin D3) [Vitamin D] 50,000 unit PO Q7D 06/28/16 Clonazepam [Klonopin 1 mg Tablet] 1 mg PO Q6HP PRN 06/28/16 Cyanocobalamin (Vitamin B-12) [Vitamin B-12 Inj 1000 Mcg/1 ml Vial] 1,000 mcg IM [id number] 06/28/16 Dicyclomine HCl [Bentyl 20 mg Tablet] 20 mg PO QIDP PRN 06/28/16 Diphenoxylate HCl/Atropine [Diphenoxylate-Atrop 2.5-0.025] 2 each PO QID Duloxetine HCl [Cymbalta] 60 mg PO BID 06/28/16 Esomeprazole Magnesium [Nexium] 40 mg PO DAILY 06/28/16 Guaifenesin [Tussin Mucus-Chest Congestion] 10 ml PO Q6HP PRN 06/28/16 Lipase/Protease/Amylase [Creon Dr 24,000 Units Capsule] 2 cap PO AC 06/28/16 Loperamide HCl [Loperamide] 2 mg PO ASDIR PRN 06/28/16 Magnesium Hydroxide [Milk of Magnesia 30 ml Udcup] 30 ml PO HSP PRN 06/28/16 Mintox 30 ml PO ASDIR PRN 06/28/16 Mirtazapine 7.5 mg PO QHS 06/28/16 Mirtazapine [Remeron 15 mg Tablet] 15 mg PO QHS 06/28/16 Mupirocin Calcium [Mupirocin] 15 gm TP BIDP PRN 06/28/16 Neomycin [place]/Bacitrac Zn/Poly [Triple Antibiotic Ointment] 1 each TP ASDIR PRN Ondansetron [Ondansetron Odt] 4 mg PO TIDP PRN 06/28/16 Opium Tincture 0.6 ml PO QID 06/28/16 Oxycodone HCl [Oxy-Ir 5 mg Tablet] 10 mg PO Q4 06/28/16 Potassium Chloride [Klor-Con 10 Meq Tablet.sa] 10 meq PO BID 06/28/16 Allergies/Adverse Reactions: codeine Allergy (Verified 03/23/16 21:08) pregabalin [From Lyrica] Allergy (Verified 03/23/16 21:08) Review of Systems All systems: reviewed and no additional remarkable complaints except as stated Physical Exam Vital Signs: Temp Pulse Resp BP Pulse Ox 98 F 72 19 106/56 L 100 06/28/16 16:00 06/28/16 16:00 06/28/16 16:00 06/28/16 16:00 06/28/16 16:00 Intake & Output 06/27/16 06/28/16 06/29/16 06:59 06:59 06:59 Intake Total 3062 Output Total 600 Balance 2462 Weight 56 kg Exam: General: Patient is alert HEENT: There is no pallor or jaundice. PERRLA. Oropharynx normal Respiratory: No chest deformity. No respiratory distress. Chest wall palpitation was unremarkable. Breath sounds were normal Cardiovascular: Heart sounds 1 and 2 normal with no murmurs. Abdominal: Not distended. Soft and nontender. There is an ileostomy Extremities: No edema Neurological: Alert and oriented x4. Grossly nonfocal. Normal speech Skin: No significant rash Psychological: Normal affect Results Laboratory Results: 06/28/16 13:48 06/28/16 06/28/16 06/28/16 05:55 10:30 13:48 Sodium 134.5 L Potassium 3.8 Chloride 105 Carbon Dioxide 14 L Anion Gap 16 BUN 35 H Creatinine 3.00 H Est GFR ( Amer) 19 L Est GFR (Non-Af Amer) 16 L Glucose 90 Calcium 6.5 L* Magnesium 1.8 Albumin 4.3 Urine Color YELLOW Urine Appearance TURBID Urine pH 5.0 Ur Specific [place] 1.025 Urine Protein 100 H Urine Glucose (UA) NEGATIVE Urine Ketones NEGATIVE Urine Blood LARGE H Urine Nitrite NEGATIVE Ur Leukocyte Esterase LARGE H Urine WBC (Auto) >182 Urine RBC (Auto) 79 Impressions: Abdomen/Pelvis CT 06/28/16 01:27 IMPRESSION: No acute or suspicious findings. Prior colectomy/ostomy. Assessment & Plan - Diagnosis (1) Diarrhea Is this a current diagnosis for this admission?: YesPlan: I believe her increased ileostomy output is likely from a viral illness. She had flulike symptoms the first few days of her illness. We should continue with hydration and I will resume lomotil and possibly the tincture of opium. I would also treat her temporarily with cholestyramine. There was no evidence of inflammation on her CAT scan so I will hold off on steroids or mesalamine. Her renal function is already improving and is expected to go back to normal. (2) Ileostomy present Is this a current diagnosis for this admission?: Yes (4) Gastroesophageal reflux disease Qualifiers: Esophagitis presence: esophagitis presence not specified Qualified Code(s): K21.9 - Gastro-esophageal reflux disease without esophagitis Is this a current diagnosis for this admission?: Yes (5) Metabolic acidosis Is this a current diagnosis for this admission?: Yes
[2016-06-28] MEDS ORDERED: CHOLESTYRAMINE/ASPARTAME 4 GM PACKET PO ONE (19:15)
[2016-06-28] MEDS ORDERED: DIPHENOXYLATE HCL/ATROP SULF 2.5-0.025 MG TABLET PO ONE (19:30)
[2016-06-28] MEDS: CLONAZEPAM 1 MG TABLET PO PRN (20:22)
--- NOTE | 2016-06-28 21:17 | PDOC CONSULTATION ---
Consultation Consult Date: 06/28/16 Attending physician:: ANG ECHEVERRIA Consult reason:: I was asked the hospitalist service see the patient because of acute worsening of kidney function, with metabolic acidosis and other electrolyte abnormalities. History of Present Illness Admission Date/PCP: 06/28/16 05:31 ENMANUEL SANCHEZ PA-C History of Present Illness: DONALD ALBRIGHT is a 66 year old female with a past medical history of severe Crohn's disease and remote ileectomy and total colectomy, who is been her usual state of health until approximately 2 weeks ago noting bilateral lower extremity edema which subsequently resolved followed by increased ostomy output and muscle cramping prompting her to seek evaluation emergency room. She denies fever, chills, nausea, with 1 episode of vomiting. She denies any recent change in medications denies diuretics or recent infection. In the emergency room she's found to have acute renal failure with a creatinine of 5.27 from 1.1 just 5 days ago. Remarkably potassium and magnesium are within normal limits. A UA is suggestive of possible UTI. She's been ordered symptomatically management and IV fluids and was admitted. In addition to above the patient tells me that she has been telling the staff and [facility] that she feels like she is dehydrated but apparently they did not listen to her. She denies any fall. She describes an unbearable pain from head to toe described as cramping which has worsened yesterday. She tells me that the pain was so severe that yesterday she even thinks of killing herself but she doesn't think that way today anymore. She said she was in the emergency room 2 days ago that after 2 L of IV fluids. Was sent back to [facility]. She denies any cough or colds. Patient relates that she has had previous episodes of dehydration maybe about a year ago and was hospitalized in another city prior to transfer here. She remembered that she did have an episode of acute renal failure secondary to dehydration and was told that she has baseline chronic kidney disease stage III. She denies any history of kidney stones, known proteinuria nor persistent hematuria. She said she cannot take any nonsteroidal anti-inflammatory agents because these medication tear her stomach. She takes oxycodone for chronic pain. On admission she had a BUN of 32 creatinine of 5.27 with estimated GFR of 8. She also has severe acidosis with CO2 of 11. Previous records shows that her baseline BUN range pretty normal limits and her creatinine range anywhere from 1.1-1.2 with estimated GFR on to 50s today after IV fluid hydration with 2 L of fluid bolus last night and ongoing IV fluids she had a BUN of 35 and creatinine of 3 with estimated GFR of 16. Her CO2 is still low at 14, mildly low sodium of 134.5 and she has severe hypocalcemia with calcium of 6.5. Her urinalysis is suggestive of urinary tract infection with some microhematuria and pyuria. Urine culture is pending. Patient said that she feels a little bit better today than yesterday. Past Medical History Pulmonary Medical History: Reports: Chronic Obstructive Pulmonary Disease (COPD) Renal/ Medical History: Reports: Chronic Kidney Disease Stage III, Metabolic Acidosis GI Medical History: Reports: Crohn's Disease, Gastroesophageal Reflux Disease, Other - History of acute pancreatitis, small bowel obstruction 5 Musculoskeltal Medical History: Reports: Arthritis, Other - Chronic pain Psychiatric Medical History: Reports: Depression Past Surgical History Past Surgical History: Reports: Cholecystectomy, Colectomy - Total with ileostomy, Hysterectomy, Orthopedic Surgery - feet Social History Lives with: Other - [facility] assisted living Smoking Status: Current Some Day Smoker Frequency of Alcohol Use: None Hx Recreational Drug Use: No Drugs: None Hx Prescription Drug Abuse: No - Advance Directive Resuscitation Status: Full Code Family History Family History: CVA - Mother, Other - Leukemia on her father, Crohn's and her aunt Parental Family History Reviewed: Yes Children Family History Reviewed: Yes Sibling(s) Family History Reviewed.: Unknown Medication/Allergy Home Medications: Acetaminophen [Mapap] 500 mg PO Q4HP PRN 06/28/16 Acetaminophen [Tylenol] 325 mg PO Q4HP PRN 06/28/16 Albuterol Sulfate [Proair Respiclick] 2 puff IH QIDP PRN 06/28/16 Aspirin [Aspirin EC] 81 mg PO DAILY 06/28/16 Cholecalciferol (Vitamin D3) [Vitamin D] 50,000 unit PO Q7D 06/28/16 Clonazepam [Klonopin 1 mg Tablet] 1 mg PO Q6HP PRN 06/28/16 Cyanocobalamin (Vitamin B-12) [Vitamin B-12 Inj 1000 Mcg/1 ml Vial] 1,000 mcg IM [id number] 06/28/16 Dicyclomine HCl [Bentyl 20 mg Tablet] 20 mg PO QIDP PRN 06/28/16 Diphenoxylate HCl/Atropine [Diphenoxylate-Atrop 2.5-0.025] 2 each PO QID Duloxetine HCl [Cymbalta] 60 mg PO BID 06/28/16 Esomeprazole Magnesium [Nexium] 40 mg PO DAILY 06/28/16 Guaifenesin [Tussin Mucus-Chest Congestion] 10 ml PO Q6HP PRN 06/28/16 Lipase/Protease/Amylase [Creon Dr 24,000 Units Capsule] 2 cap PO AC 06/28/16 Loperamide HCl [Loperamide] 2 mg PO ASDIR PRN 06/28/16 Magnesium Hydroxide [Milk of Magnesia 30 ml Udcup] 30 ml PO HSP PRN 06/28/16 Mintox 30 ml PO ASDIR PRN 06/28/16 Mirtazapine 7.5 mg PO QHS 06/28/16 Mirtazapine [Remeron 15 mg Tablet] 15 mg PO QHS 06/28/16 Mupirocin Calcium [Mupirocin] 15 gm TP BIDP PRN 06/28/16 Neomycin [place]/Bacitrac Zn/Poly [Triple Antibiotic Ointment] 1 each TP ASDIR PRN Ondansetron [Ondansetron Odt] 4 mg PO TIDP PRN 06/28/16 Opium Tincture 0.6 ml PO QID 06/28/16 Oxycodone HCl [Oxy-Ir 5 mg Tablet] 10 mg PO Q4 06/28/16 Potassium Chloride [Klor-Con 10 Meq Tablet.sa] 10 meq PO BID 06/28/16 Allergies/Adverse Reactions: codeine Allergy (Verified 03/23/16 21:08) pregabalin [From Lyrica] Allergy (Verified 03/23/16 21:08) Review of Systems All systems: reviewed and no additional remarkable complaints except as stated Review of Systems: Constitutional: ABSENT: chills, fatigue, fever(s), headache(s), weight gain, weight loss; admits decreased appetite Eyes: ABSENT: visual disturbances Ears: ABSENT: hearing changes Cardiovascular: ABSENT: chest pain, dyspnea on exertion, edema, orthropnea, palpitations Respiratory: ABSENT: cough, dyspnea, hemoptysis Gastrointestinal: ABSENT: abdominal pain, constipation, diarrhea, hematemesis, hematochezia; admits nausea and an episode of vomiting Genitourinary: ABSENT: dysuria, hematuria Musculoskeletal: Admits joint pain, severe generalized muscle pain and muscle cramping] Integumentary: ABSENT: rash, wounds Neurological: ABSENT: abnormal gait, abnormal speech, confusion, dizziness, focal weakness, numbness, syncope Psychiatric: Admits anxiety, and depression Endocrine: ABSENT: cold intolerance, heat intolerance, polydipsia, polyuria Hematologic/Lymphatic: ABSENT: easy bleeding, easy bruising, lymphadenopathy Physical Exam Vital Signs: Temp Pulse Resp BP Pulse Ox 98 F 72 19 106/56 L 100 06/28/16 16:00 06/28/16 16:00 06/28/16 16:00 06/28/16 16:00 06/28/16 16:00 Intake & Output 06/27/16 06/28/16 06/29/16 06:59 06:59 06:59 Weight 56 kg Exam: General appearance: no acute distress, cooperative, well-developed, well- nourished Head exam: PRESENT: atraumatic, normocephalic Eye exam: PRESENT: Conjunctiva [place], EOMI, PERRLA. ABSENT: conjunctival injection, scleral icterus Mouth exam: PRESENT: moist, neck supple, tongue midline Neck exam: PRESENT: full ROM. ABSENT: carotid bruit, JVD, lymphadenopathy, thyromegaly Respiratory exam: PRESENT: Diminished to auscultation bilaterally. ABSENT: rales, rhonchi, stridor, wheezes Cardiovascular exam: PRESENT: RRR, +S1, +S2. ABSENT: systolic murmur Pulses: PRESENT: normal radial pulses, normal dorsalis pedis pulses GI/Abdominal exam: PRESENT: Hyperactive bowel sounds, soft. Ileostomy bag in place in the left lower quadrant area ABSENT: guarding, mass, tenderness Rectal exam: deferred Extremities exam: PRESENT: full ROM. ABSENT: calf tenderness, pedal edema Musculoskeletal: PRESENT: full ROM. ABSENT: deformity Neurological exam: PRESENT: alert, Awake, Oriented to person, Oriented to place , Oriented to time, reflexes normal, CN II-XII grossly intact. ABSENT: motor sensory deficit Psychiatric exam: PRESENT: appropriate affect, normal mood. ABSENT: homicidal ideation, suicidal ideation Skin exam: PRESENT: intact, dry, warm. ABSENT: rash Results Laboratory Results: 06/28/16 13:48 06/28/16 06/28/16 06/28/16 05:55 10:30 13:48 Sodium 134.5 L Potassium 3.8 Chloride 105 Carbon Dioxide 14 L Anion Gap 16 BUN 35 H Creatinine 3.00 H Est GFR ( Amer) 19 L Est GFR (Non-Af Amer) 16 L Glucose 90 Calcium 6.5 L* Magnesium 1.8 Albumin 4.3 Urine Color YELLOW Urine Appearance TURBID Urine pH 5.0 Ur Specific [place] 1.025 Urine Protein 100 H Urine Glucose (UA) NEGATIVE Urine Ketones NEGATIVE Urine Blood LARGE H Urine Nitrite NEGATIVE Ur Leukocyte Esterase LARGE H Urine WBC (Auto) >182 Urine RBC (Auto) 79 06/23/16 06/26/16 06:20 22:00 Carbon Dioxide 19 L 17 L BUN 14 15 Creatinine 1.14 1.87 H Est GFR ( Amer) 58 L 33 L Est GFR (Non-Af Amer) 48 L 27 L Impressions: Abdomen/Pelvis CT 06/28/16 01:27 IMPRESSION: No acute or suspicious findings. Prior colectomy/ostomy. Assessment & Plan - Diagnosis (1) Acute kidney injury superimposed on chronic kidney disease Is this a current diagnosis for this admission?: YesPlan: Likely secondary to prerenal azotemia due to moderate to severe dehydration. Currently improving with IV fluid hydration. Patient does seem to have underlying chronic kidney disease. Continue IV fluid hydration. Avoid further nephrotoxic agents. Patient does not require any acute renal replacement therapy. (2) Prerenal azotemia Is this a current diagnosis for this admission?: Yes (3) Metabolic acidosis Is this a current diagnosis for this admission?: YesPlan: Most likely due to a combination of acute kidney injury and underlying chronic mild non-anion gap metabolic acidosis secondary to having ileostomy. I will change the IV fluid to bicarbonate drip using 3 g of sodium bicarbonate in 1 L of D5 water to run at 75 mL an hour. (4) Hypocalcemia Is this a current diagnosis for this admission?: YesPlan: This is most likely causing the patient's muscle spasms and muscle pains which could exacerbate underlying chronic pain syndrome. We will correct this by replacement with calcium. I will give him 1 amp of calcium gluconate intravenously today. Start oral calcium carbonate 1000 mg by mouth 2 times a day. Check vitamin D level and supplement as necessary. (5) Hyponatremia Is this a current diagnosis for this admission?: YesPlan: Mild. Could be due to volume expansion. (6) Urinary tract infection Is this a current diagnosis for this admission?: YesPlan: Urinalysis suggestive of urinary tract infection pending urine culture. We'll start the patient on ciprofloxacin 200 mg IV every 12 hours. Follow results of urine culture. (7) Crohns disease Is this a current diagnosis for this admission?: Yes (8) Chronic pain syndrome Is this a current diagnosis for this admission?: YesPlan: Pain management deferred to the primary service. (9) Ileostomy present Is this a current diagnosis for this admission?: Yes (10) Short bowel syndrome Is this a current diagnosis for this admission?: Yes - Notes Notes: Thank you very much for this consultation. Assessment and plan discussed with patient and her nurse today. I will continue to follow the patient with you. - Time Time Spent: Greater than 70 Minutes
[2016-06-28] MEDS: MIRTAZAPINE 15 MG TABLET PO SCH ×2 (21:20)
[2016-06-28 21:59] LABS: ANION GAP 13 (5-19); BLOOD UREA NITROGEN 35 mg/dL (7-20); CALCIUM 7.1 mg/dL (8.4-10.2); CARBON DIOXIDE 15 mmol/L (22-30); CHLORIDE 106 mmol/L (98-107); GLUCOSE 106 mg/dL (75-110); POTASSIUM 3.7 mmol/L (3.6-5.0); SODIUM 134.2 mmol/L (137-145)
[2016-06-28] MEDS: CIPROFLOXACIN 200 MG/D5W RTU 100 ML IV SCH (23:00)
[2016-06-29] MEDS: MORPHINE SULFATE 10 MG/ML INJ IV PRN ×2 (02:43→06:37)
[2016-06-29] MEDS: HEPARIN SOD (PORCINE) 5,000 UNIT/ML 1 ML SYRINGE SUBCUT SCH ×3 (05:42→21:50)
[2016-06-29 06:28] LABS: ABSOLUTE LYMPHOCYTES (AUTO) 1.4 10^3/uL (0.5-4.7); ABSOLUTE MONOCYTES (AUTO) 0.7 10^3/uL (0.1-1.4); ABSOLUTE NEUT (AUTO) 6.8 10^3/uL (1.7-8.2); BASOPHILS % (AUTO) 0.1 % (0-2); HEMATOCRIT 29.7 % (36.0-47.0); HEMOGLOBIN 10.2 g/dL (12.0-15.5); HGB HCT DIFFERENCE 0.9; LYMPHOCYTES % (AUTO) 15.3 % (13-45); MEAN CORPUSCULAR HEMOGLOBIN 31.7 pg (27.0-33.4); MEAN CORPUSCULAR HGB CONC 34.4 g/dL (32.0-36.0); MEAN CORPUSCULAR VOLUME 92 fl (80-97); MONOCYTES % (AUTO) 7.6 % (3-13); RED BLOOD COUNT 3.23 10^6/uL (3.72-5.28); RED CELL DISTRIBUTION WIDTH 14.3 % (11.5-14.0); WHITE BLOOD COUNT 8.9 10^3/uL (4.0-10.5)
[2016-06-29 06:46] LABS: ANION GAP 11 (5-19); BLOOD UREA NITROGEN 36 mg/dL (7-20); CALCIUM 7.4 mg/dL (8.4-10.2); CARBON DIOXIDE 19 mmol/L (22-30); CHLORIDE 107 mmol/L (98-107); CREATININE RESULT 1.84 mg/dL (0.52-1.25); GLUCOSE 93 mg/dL (75-110); PHOSPHORUS 4.6 mg/dL (2.5-4.5); POTASSIUM 3.4 mmol/L (3.6-5.0); SODIUM 136.5 mmol/L (137-145)
[2016-06-29] MEDS: LIPASE/PROTEASE/AMYLASE 1 CAP CAPSULE.DR PO SCH ×9 (07:36→16:54)
[2016-06-29] MEDS: FAMOTIDINE INJ/PF 20 MG/2 ML SDV IV SCH ×2 (09:53→21:50)
[2016-06-29] MEDS: DIPHENOXYLATE HCL/ATROP SULF 2.5-0.025 MG TABLET PO SCH ×4 (09:53→21:49)
[2016-06-29] MEDS: ASPIRIN 81 MG TABLET, ENT COATED PO SCH (09:53)
[2016-06-29] MEDS: DULOXETINE HCL 30 MG CAPSULE.DR PO SCH ×2 (09:54→17:56)
[2016-06-29] MEDS: POTASSIUM CHLORIDE 10 MEQ TABLET.SA PO SCH (09:54)
[2016-06-29] MEDS: CALCIUM CARBONATE 500 MG TABLET PO SCH ×3 (09:54→17:56)
[2016-06-29] MEDS: CHOLESTYRAMINE/ASPARTAME 4 GM PACKET PO SCH ×3 (10:05→17:57)
[2016-06-29] MEDS: CIPROFLOXACIN 200 MG/D5W RTU 100 ML IV SCH ×2 (10:05→21:53)
[2016-06-29] MEDS: OXYCODONE HCL IR 5 MG TABLET PO PRN ×2 (11:43→18:37)
[2016-06-29] MEDS: CLONAZEPAM 1 MG TABLET PO PRN ×2 (13:52→21:49)
[2016-06-29] MEDS ORDERED: DEXTROSE 5%-WATER 1000 ML 1,000 ML with SODIUM BICARBONATE 150 MEQ IV PRN ×2 (15:48)
--- NOTE | 2016-06-29 15:56 | PDOC PROGRESS REPORT ---
Subjective Progress Note for:: 06/29/16 Subjective:: Patient feels better today. Her pain is well controlled. She wants to eat. She is making good amount of urine. She said she still feels nauseated but has not vomited. She has mild abdominal pain. She doesn't have any other new complaints. Physical Exam Vital Signs: Temp Pulse Resp BP Pulse Ox 98.2 F 62 18 107/47 L 98 06/29/16 07:26 06/29/16 07:26 06/29/16 07:26 06/29/16 07:26 06/29/16 07:26 Intake & Output 06/28/16 06/29/16 06/30/16 06:59 06:59 06:59 Intake Total 4397 Output Total 1400 Balance 2997 Weight 59.4 kg Exam: General appearance: PRESENT: no acute distress, cooperative, well-developed, well-nourished Head exam: PRESENT: atraumatic, normocephalic Eye exam: PRESENT: conjunctiva pale, PERRLA. ABSENT: scleral icterus Neck exam: ABSENT: JVD Respiratory exam: PRESENT: Diminished breath sounds. ABSENT: crackles, rales, rhonchi, unlabored, wheezes Cardiovascular exam: PRESENT: Regular rate rhythm -+S1, +S2. ABSENT: diastolic murmur, systolic murmur GI/Abdominal exam: PRESENT: normal bowel sounds, soft. Ileostomy and left lower quadrant in place. Mild tenderness on palpation. ABSENT: guarding, mass Extremities exam: ABSENT: No edema Neurological exam: PRESENT: alert, awake, oriented to person, place and time. Skin exam: PRESENT: dry, warm, Results Laboratory Results: 06/29/16 05:30 06/29/16 05:30 06/28/16 06/29/16 06/29/16 21:25 05:30 05:30 WBC 8.9 RBC 3.23 L Hgb 10.2 L D Hct 29.7 L MCV 92 MCH 31.7 MCHC 34.4 RDW 14.3 H Plt Count 150 Seg Neutrophils % 77.0 Lymphocytes % 15.3 Monocytes % 7.6 Eosinophils % 0.0 Basophils % 0.1 Absolute Neutrophils 6.8 Absolute Lymphocytes 1.4 Absolute Monocytes 0.7 Absolute Eosinophils 0.0 Absolute Basophils 0.0 Sodium 134.2 L 136.5 L Potassium 3.7 3.4 L Chloride 106 107 Carbon Dioxide 15 L 19 L Anion Gap 13 11 BUN 35 H 36 H Creatinine 2.20 H 1.84 H Est GFR ( Amer) 27 L 33 L Est GFR (Non-Af Amer) 22 L 28 L Glucose 106 93 Calcium 7.1 L 7.4 L Phosphorus 4.6 H Impressions: Abdomen/Pelvis CT 06/28/16 01:27 IMPRESSION: No acute or suspicious findings. Prior colectomy/ostomy. Assessment & Plan - Diagnosis (1) Acute kidney injury superimposed on chronic kidney disease Is this a current diagnosis for this admission?: YesPlan: Likely secondary to prerenal azotemia due to moderate to severe dehydration. Currently improving with IV fluid hydration. Patient does seem to have underlying chronic kidney disease. Continue IV fluid hydration. Avoid further nephrotoxic agents. Patient does not require any acute renal replacement therapy. We will decrease rate of IV fluids. Kidney function continuously improved. Continue to monitor for. (2) Prerenal azotemia Is this a current diagnosis for this admission?: Yes (3) Metabolic acidosis Is this a current diagnosis for this admission?: YesPlan: Improving with sodium bicarbonate drip. I will decrease the rate to 50 mL an hour. Most likely can be discontinued tomorrow. The patient might need to be on sodium bicarbonate tablets is on maintenance. (4) Hypocalcemia Is this a current diagnosis for this admission?: YesPlan: Improving. Continue calcium carbonate tablets. (5) Hyponatremia Is this a current diagnosis for this admission?: YesPlan: Improving. (6) Urinary tract infection Is this a current diagnosis for this admission?: YesPlan: Urinalysis suggestive of urinary tract infection. Urine culture showed gram- negative rods. Continue ciprofloxacin 200 mg IV every 12 hours. Follow results of urine culture. (7) Crohns disease Is this a current diagnosis for this admission?: Yes (8) Chronic pain syndrome Is this a current diagnosis for this admission?: YesPlan: Pain management deferred to the primary service. (9) Ileostomy present Is this a current diagnosis for this admission?: Yes (10) Short bowel syndrome Is this a current diagnosis for this admission?: Yes - Time Time with patient: 15-25 minutes
[2016-06-29] MEDS ORDERED: POTASSIUM CHLORIDE 10 MEQ TABLET.SA PO ONE (16:30)
--- NOTE | 2016-06-29 17:22 | PDOC PROGRESS REPORT ---
Subjective Progress Note for:: 06/29/16 Subjective:: The patient was seen earlier today on rounds. I had a long discussion with the patient regarding polypharmacy. The patient was unable to answers very specific questions about who performed her previous surgeries or pain management provider she may have silent the past. The patient was very vague stating that she had been seen "all over the place". The patient has noted that she is in persistent never ending pain. When asked about other pain medicine alternatives besides oxycodone since she is in constant pain in spite of taking this the patient became very hostile stating "you're not a pain specialist". I agree with the patient and stated that I was offering for her to be evaluated by pain management given the large volume of narcotics she is taking without apparent relief. 2 friends of the patient are present at bedside during this interaction with the patient's permission. They both agreed that the patient "took way too much medicine" and at times can be difficult to awaken. The patient is extremely defensive and stated "if you're not going to give me my medication I will put a gun to my head". Review of systems: The rest of the review of systems is negative. Physical Exam Vital Signs: Temp Pulse Resp BP Pulse Ox 97.6 F 62 18 118/49 L 99 06/29/16 15:11 06/29/16 15:11 06/29/16 15:11 06/29/16 15:11 06/29/16 15:11 Intake & Output 06/27/16 06/28/16 06/29/16 23:59 23:59 23:59 Intake Total 3062 1335 Output Total 600 800 Balance 2462 535 Weight 56 kg 59.4 kg General appearance: PRESENT: no acute distress, disheveled, well-developed, well -nourished Head exam: PRESENT: atraumatic, normocephalic Eye exam: PRESENT: conjunctiva pink, EOMI, PERRLA. ABSENT: scleral icterus Ear exam: PRESENT: normal external ear exam Mouth exam: PRESENT: moist, tongue midline Neck exam: ABSENT: carotid bruit, JVD, lymphadenopathy, thyromegaly Respiratory exam: PRESENT: clear to auscultation heydi, symmetrical, unlabored. ABSENT: rales, rhonchi, tachypnea, wheezes Cardiovascular exam: PRESENT: RRR. ABSENT: diastolic murmur, rubs, systolic murmur Pulses: PRESENT: normal dorsalis pedis pul Vascular exam: PRESENT: normal capillary refill GI/Abdominal exam: PRESENT: normal bowel sounds, soft. ABSENT: distended, guarding, mass, organolmegaly, rebound, tenderness Rectal exam: PRESENT: deferred Extremities exam: PRESENT: full ROM. ABSENT: calf tenderness, clubbing, pedal edema Neurological exam: PRESENT: alert, awake, oriented to person, oriented to place , oriented to time, oriented to situation, CN II-XII grossly intact. ABSENT: motor sensory deficit Psychiatric exam: PRESENT: agitated, anxious, normal mood. ABSENT: homicidal ideation, suicidal ideation Focused psych exam: PRESENT: restlessness Skin exam: PRESENT: dry, intact, warm. ABSENT: cyanosis, rash Results Laboratory Results: 06/29/16 05:30 06/29/16 05:30 06/28/16 06/29/16 06/29/16 21:25 05:30 05:30 WBC 8.9 RBC 3.23 L Hgb 10.2 L D Hct 29.7 L MCV 92 MCH 31.7 MCHC 34.4 RDW 14.3 H Plt Count 150 Seg Neutrophils % 77.0 Lymphocytes % 15.3 Monocytes % 7.6 Eosinophils % 0.0 Basophils % 0.1 Absolute Neutrophils 6.8 Absolute Lymphocytes 1.4 Absolute Monocytes 0.7 Absolute Eosinophils 0.0 Absolute Basophils 0.0 Sodium 134.2 L 136.5 L Potassium 3.7 3.4 L Chloride 106 107 Carbon Dioxide 15 L 19 L Anion Gap 13 11 BUN 35 H 36 H Creatinine 2.20 H 1.84 H Est GFR ( Amer) 27 L 33 L Est GFR (Non-Af Amer) 22 L 28 L Glucose 106 93 Calcium 7.1 L 7.4 L Phosphorus 4.6 H Impressions: Abdomen/Pelvis CT 06/28/16 01:27 IMPRESSION: No acute or suspicious findings. Prior colectomy/ostomy. Assessment & Plan - Diagnosis (1) Crohn's disease, acute Qualifiers: Digestive disease complication type: unspecified complication Qualified Code(s): K50.919 - Crohn's disease, unspecified, with unspecified complications Is this a current diagnosis for this admission?: YesPlan: Will continue current steroids and continue to aggressively hydrate. Do appreciate GIs input with this. Will continue 5-ASA patient states that this had not been refilled as she cannot keep track of her medications (2) Acute renal failure Qualifiers: Acute renal failure type: unspecified Qualified Code(s): N17.9 - Acute kidney failure, unspecified Is this a current diagnosis for this admission?: YesPlan: Will continue to aggressively hydrate 06/28/16 06/28/16 00:20 05:30 Creatinine 5.27 H 4.27 H (3) Metabolic acidosis Is this a current diagnosis for this admission?: YesPlan: The patient's CO2 is improving with hydration. Will repeat chemistry and follow. (4) Short bowel syndrome Is this a current diagnosis for this admission?: Yes (5) Opiate dependence, continuous Is this a current diagnosis for this admission?: YesPlan: The patient may have an element of underlying narcotic bowel leading to persistent abdominal pain. Given the patient complains of pills being found in her ostomy bag may benefit for alternative pain management. (6) Polypharmacy Is this a current diagnosis for this admission?: Yes (7) Benzodiazepine dependence, continuous Is this a current diagnosis for this admission?: YesPlan: Will continue home medications. (8) Gastroesophageal reflux disease Qualifiers: Esophagitis presence: esophagitis presence not specified Qualified Code(s): K21.9 - Gastro-esophageal reflux disease without esophagitis Is this a current diagnosis for this admission?: YesPlan: Will continue home medications. (9) COPD (chronic obstructive pulmonary disease) Qualifiers: COPD type: unspecified COPD Qualified Code(s): J44.9 - Chronic obstructive pulmonary disease, unspecified Is this a current diagnosis for this admission?: YesPlan: Will continue home medications. (10) Restless leg syndrome Is this a current diagnosis for this admission?: YesPlan: Will continue Mirapex - Time Time Spent with patient: 25-34 minutes Medications reviewed and adjusted accordingly: Yes Anticipated discharge: Home
[2016-06-29] MEDS: MIRTAZAPINE 15 MG TABLET PO SCH ×2 (21:49)
[2016-06-30] MEDS ORDERED: PROMETHAZINE HCL INJ 25 MG/1 ML VIAL IV PRN (01:27)
[2016-06-30] MEDS: HEPARIN SOD (PORCINE) 5,000 UNIT/ML 1 ML SYRINGE SUBCUT SCH ×3 (05:30→22:34)
[2016-06-30 06:12] LABS: ABSOLUTE LYMPHOCYTES (AUTO) 1.9 10^3/uL (0.5-4.7); ABSOLUTE MONOCYTES (AUTO) 0.5 10^3/uL (0.1-1.4); ABSOLUTE NEUT (AUTO) 2.7 10^3/uL (1.7-8.2); BASOPHILS % (AUTO) 0.4 % (0-2); EOSINOPHILS % (AUTO) 0.3 % (0-6); HEMATOCRIT 31.8 % (36.0-47.0); HGB HCT DIFFERENCE 1.2; LYMPHOCYTES % (AUTO) 37.5 % (13-45); MEAN CORPUSCULAR HEMOGLOBIN 31.5 pg (27.0-33.4); MEAN CORPUSCULAR HGB CONC 34.5 g/dL (32.0-36.0); MEAN CORPUSCULAR VOLUME 91 fl (80-97); MONOCYTES % (AUTO) 9.2 % (3-13); RED BLOOD COUNT 3.49 10^6/uL (3.72-5.28); RED CELL DISTRIBUTION WIDTH 14.1 % (11.5-14.0); SEGMENTED NEUTROPHILS % (AUTO) 52.6 % (42-78); WHITE BLOOD COUNT 5.1 10^3/uL (4.0-10.5)
[2016-06-30 06:30] LABS: ANION GAP 13 (5-19); BLOOD UREA NITROGEN 29 mg/dL (7-20); CALCIUM 8.3 mg/dL (8.4-10.2); CARBON DIOXIDE 26 mmol/L (22-30); CHLORIDE 100 mmol/L (98-107); CREATININE RESULT 1.23 mg/dL (0.52-1.25); GLUCOSE 90 mg/dL (75-110); MAGNESIUM 1.7 mg/dL (1.6-2.3); SODIUM 138.5 mmol/L (137-145)
[2016-06-30] MEDS: OXYCODONE HCL IR 5 MG TABLET PO PRN ×4 (07:40→20:21)
[2016-06-30] MEDS: CLONAZEPAM 1 MG TABLET PO PRN ×3 (07:40→20:32)
[2016-06-30] MEDS: LIPASE/PROTEASE/AMYLASE 1 CAP CAPSULE.DR PO SCH ×9 (07:40→16:20)
[2016-06-30] MEDS: POTASSI CL 20 MEQ/50 ML RIDER 50 ML IV SCH ×2 (09:04→15:48)
[2016-06-30] MEDS: ASPIRIN 81 MG TABLET, ENT COATED PO SCH (09:13)
[2016-06-30] MEDS: CALCIUM CARBONATE 500 MG TABLET PO SCH ×3 (09:13→18:11)
[2016-06-30] MEDS: POTASSIUM CHLORIDE 10 MEQ TABLET.SA PO SCH ×2 (09:13→18:11)
[2016-06-30] MEDS: DIPHENOXYLATE HCL/ATROP SULF 2.5-0.025 MG TABLET PO SCH ×4 (09:14→22:14)
[2016-06-30] MEDS: DULOXETINE HCL 30 MG CAPSULE.DR PO SCH ×2 (09:14→18:10)
[2016-06-30] MEDS: FAMOTIDINE INJ/PF 20 MG/2 ML SDV IV SCH (10:52)
[2016-06-30] MEDS: CIPROFLOXACIN 200 MG/D5W RTU 100 ML IV SCH (10:52)
[2016-06-30] MEDS: CHOLESTYRAMINE/ASPARTAME 4 GM PACKET PO SCH ×3 (11:03→18:12)
[2016-06-30] MEDS ORDERED: ONDANSETRON 4 MG TAB.RAPDIS PO PRN (11:14)
[2016-06-30] MEDS ORDERED: LACTOBACILLUS ACIDOPHILUS 250 MG TAB PO ONE (11:30)
[2016-06-30] MEDS ORDERED: CEFTRIAXONE 1 GM/D5W RTU 1 GM/50 ML RTUPB IV ONE (12:00)
[2016-06-30] MEDS ORDERED: POTASSIUM CHLORIDE 20 MEQ/50 ML RTU IV SCH (15:00)
--- NOTE | 2016-06-30 15:48 | PDOC PROGRESS REPORT ---
Subjective Progress Note for:: 06/30/16 Subjective:: The patient was seen earlier today on rounds. The patient states that she feels better today. The patient still adamant that she only gets 1-2 hours of pain relief in between opiate doses. There've been no reported episodes of vomiting. The patient has been tolerating her meals. The patient admits to having a decrease in her ileostomy output. The patient does overall appear to be in better spirits. Review of systems: The rest of the review of systems is negative. Physical Exam Vital Signs: Temp Pulse Resp BP Pulse Ox 99.0 F 63 16 122/63 99 06/30/16 12:00 06/30/16 12:00 06/30/16 12:00 06/30/16 12:00 06/30/16 12:00 Intake & Output 06/28/16 06/29/16 06/30/16 23:59 23:59 23:59 Intake Total 3062 3171 1585 Output Total 221 706 7793 Balance 2462 2371 532 Weight 56 kg 59.4 kg General appearance: PRESENT: no acute distress, disheveled, well-developed, well -nourished Head exam: PRESENT: atraumatic, normocephalic Eye exam: PRESENT: conjunctiva pink, EOMI, PERRLA. ABSENT: scleral icterus Ear exam: PRESENT: normal external ear exam Mouth exam: PRESENT: moist, tongue midline Neck exam: ABSENT: carotid bruit, JVD, lymphadenopathy, thyromegaly Respiratory exam: PRESENT: clear to auscultation heydi, symmetrical, unlabored. ABSENT: rales, rhonchi, tachypnea, wheezes Cardiovascular exam: PRESENT: RRR. ABSENT: diastolic murmur, rubs, systolic murmur Pulses: PRESENT: normal dorsalis pedis pul Vascular exam: PRESENT: normal capillary refill GI/Abdominal exam: PRESENT: normal bowel sounds, soft. ABSENT: distended, guarding, mass, organolmegaly, rebound, tenderness Rectal exam: PRESENT: deferred Extremities exam: PRESENT: full ROM. ABSENT: calf tenderness, clubbing, pedal edema Neurological exam: PRESENT: alert, awake, oriented to person, oriented to place , oriented to time, oriented to situation, CN II-XII grossly intact. ABSENT: motor sensory deficit Psychiatric exam: PRESENT: agitated, anxious, normal mood. ABSENT: homicidal ideation, suicidal ideation Focused psych exam: PRESENT: restlessness Skin exam: PRESENT: dry, intact, warm. ABSENT: cyanosis, rash Results Laboratory Results: 06/30/16 05:30 06/30/16 05:30 06/30/16 06/30/16 05:30 05:30 WBC 5.1 RBC 3.49 L Hgb 11.0 L Hct 31.8 L MCV 91 MCH 31.5 MCHC 34.5 RDW 14.1 H Plt Count 139 L Seg Neutrophils % 52.6 Lymphocytes % 37.5 Monocytes % 9.2 Eosinophils % 0.3 Basophils % 0.4 Absolute Neutrophils 2.7 Absolute Lymphocytes 1.9 Absolute Monocytes 0.5 Absolute Eosinophils 0.0 Absolute Basophils 0.0 Sodium 138.5 Potassium 2.8 L* Chloride 100 Carbon Dioxide 26 Anion Gap 13 BUN 29 H Creatinine 1.23 Est GFR ( Amer) 53 L Est GFR (Non-Af Amer) 44 L Glucose 90 Calcium 8.3 L Magnesium 1.7 06/28/16 05:55 Clean Catch Midstream Urine Culture - Final Citrobacter Koseri Group B Beta Streptococcus Impressions: Abdomen/Pelvis CT 06/28/16 01:27 IMPRESSION: No acute or suspicious findings. Prior colectomy/ostomy. Assessment & Plan - Diagnosis (1) Crohn's disease, acute Qualifiers: Digestive disease complication type: unspecified complication Qualified Code(s): K50.919 - Crohn's disease, unspecified, with unspecified complications Is this a current diagnosis for this admission?: YesPlan: Will continue current steroids and continue to aggressively hydrate. Do appreciate GIs input with this. Will continue 5-ASA patient states that this had not been refilled as she cannot keep track of her medications (2) polymicrobial UTI Is this a current diagnosis for this admission?: YesPlan: Transition to Rocephin (3) Acute renal failure Qualifiers: Acute renal failure type: unspecified Qualified Code(s): N17.9 - Acute kidney failure, unspecified Is this a current diagnosis for this admission?: YesPlan: Patient is back to baseline (4) Metabolic acidosis Is this a current diagnosis for this admission?: YesPlan: CO2 is normalized will discontinue bicarbonate drip. (5) Short bowel syndrome Is this a current diagnosis for this admission?: Yes (6) Opiate dependence, continuous Is this a current diagnosis for this admission?: YesPlan: The patient may have an element of underlying narcotic bowel leading to persistent abdominal pain. Given the patient complains of pills being found in her ostomy bag may benefit for alternative pain management. (7) Polypharmacy Is this a current diagnosis for this admission?: Yes (8) Benzodiazepine dependence, continuous Is this a current diagnosis for this admission?: YesPlan: Will continue home medications. (9) Gastroesophageal reflux disease Qualifiers: Esophagitis presence: esophagitis presence not specified Qualified Code(s): K21.9 - Gastro-esophageal reflux disease without esophagitis Is this a current diagnosis for this admission?: YesPlan: Will continue home medications. (10) COPD (chronic obstructive pulmonary disease) Qualifiers: COPD type: unspecified COPD Qualified Code(s): J44.9 - Chronic obstructive pulmonary disease, unspecified Is this a current diagnosis for this admission?: YesPlan: Will continue home medications. (11) Restless leg syndrome Is this a current diagnosis for this admission?: YesPlan: Will continue Mirapex (12) Acute kidney injury superimposed on chronic kidney disease Is this a current diagnosis for this admission?: Yes (13) Chronic pain syndrome Is this a current diagnosis for this admission?: Yes (14) Hyponatremia Is this a current diagnosis for this admission?: Yes (15) Ileostomy present Is this a current diagnosis for this admission?: Yes (16) Hypokalemia Is this a current diagnosis for this admission?: YesPlan: Will replete and repeat in the a.m. (17) Hypocalcemia Is this a current diagnosis for this admission?: YesPlan: This is been repleted - Time Time Spent with patient: 25-34 minutes Medications reviewed and adjusted accordingly: Yes Anticipated discharge: Home, Other Within: within 24 hours, within 48 hours
[2016-06-30] MEDS: LACTOBACILLUS ACIDOPHILUS 250 MG TAB PO SCH (18:10)
--- NOTE | 2016-06-30 19:07 | PDOC PROGRESS REPORT ---
Subjective Progress Note for:: 06/30/16 Subjective:: Patient is doing much better. She tells me that she is almost at her baseline clinical condition. She has her baseline pain, baseline nausea, and baseline mild abdominal pain. She is eating now. Her ileostomy output has decreased. She is no longer cramping. Physical Exam Vital Signs: Temp Pulse Resp BP Pulse Ox 97.8 F 61 18 103/58 L 100 06/30/16 16:00 06/30/16 16:00 06/30/16 16:00 06/30/16 16:00 06/30/16 16:00 Intake & Output 06/29/16 06/30/16 07/01/16 06:59 06:59 06:59 Intake Total 4397 3321 2304 Output Total 1400 553 500 Balance 2997 2768 1804 Weight 59.4 kg Exam: General appearance: PRESENT: no acute distress, cooperative, well-developed, well-nourished Head exam: PRESENT: atraumatic, normocephalic Eye exam: PRESENT: conjunctiva slightly pale, PERRLA. ABSENT: scleral icterus Neck exam: ABSENT: JVD Respiratory exam: PRESENT: Diminished breath sounds. ABSENT: crackles, rales, rhonchi, unlabored, wheezes Cardiovascular exam: PRESENT: Regular rate rhythm -+S1, +S2. ABSENT: diastolic murmur, systolic murmur GI/Abdominal exam: PRESENT: normal bowel sounds, soft. Ileostomy bag in place in the left lower quadrant area. ABSENT: guarding, mass, tenderness Extremities exam: ABSENT: No edema Neurological exam: PRESENT: alert, awake, oriented to person, place and time. Skin exam: PRESENT: dry, warm, Results Laboratory Results: 06/30/16 05:30 06/30/16 05:30 06/30/16 06/30/16 05:30 05:30 WBC 5.1 RBC 3.49 L Hgb 11.0 L Hct 31.8 L MCV 91 MCH 31.5 MCHC 34.5 RDW 14.1 H Plt Count 139 L Seg Neutrophils % 52.6 Lymphocytes % 37.5 Monocytes % 9.2 Eosinophils % 0.3 Basophils % 0.4 Absolute Neutrophils 2.7 Absolute Lymphocytes 1.9 Absolute Monocytes 0.5 Absolute Eosinophils 0.0 Absolute Basophils 0.0 Sodium 138.5 Potassium 2.8 L* Chloride 100 Carbon Dioxide 26 Anion Gap 13 BUN 29 H Creatinine 1.23 Est GFR ( Amer) 53 L Est GFR (Non-Af Amer) 44 L Glucose 90 Calcium 8.3 L Magnesium 1.7 06/28/16 05:55 Clean Catch Midstream Urine Culture - Final Citrobacter Koseri Group B Beta Streptococcus Impressions: Abdomen/Pelvis CT 06/28/16 01:27 IMPRESSION: No acute or suspicious findings. Prior colectomy/ostomy. Assessment & Plan - Diagnosis (1) Acute kidney injury superimposed on chronic kidney disease Is this a current diagnosis for this admission?: YesPlan: Likely secondary to prerenal azotemia due to moderate to severe dehydration. Patient does seem to have underlying chronic kidney disease. Much improved with IV fluid hydration. Patient is currently at her baseline kidney function. (2) Prerenal azotemia Is this a current diagnosis for this admission?: YesPlan: Resolved. (3) Metabolic acidosis Is this a current diagnosis for this admission?: YesPlan: Resolved. Agree with discontinuation of bicarbonate drip. (4) Hypocalcemia Is this a current diagnosis for this admission?: YesPlan: Almost resolved with replacement. (5) Hyponatremia Is this a current diagnosis for this admission?: YesPlan: Resolved. (6) Urinary tract infection Is this a current diagnosis for this admission?: YesPlan: Currently on ceftriaxone. (7) Crohns disease Is this a current diagnosis for this admission?: Yes (8) Chronic pain syndrome Is this a current diagnosis for this admission?: YesPlan: Pain management deferred to the primary service. (9) Ileostomy present Is this a current diagnosis for this admission?: Yes (10) Short bowel syndrome Is this a current diagnosis for this admission?: Yes - Notes Notes: I will sign off for now. - Time Time with patient: 15-25 minutes
[2016-06-30] MEDS: MIRTAZAPINE 15 MG TABLET PO SCH (22:14)
[2016-07-01] MEDS: FAMOTIDINE INJ/PF 20 MG/2 ML SDV IV SCH ×2 (00:04→10:55)
[2016-07-01] MEDS: HEPARIN SOD (PORCINE) 5,000 UNIT/ML 1 ML SYRINGE SUBCUT SCH (05:28)
[2016-07-01 05:32] LABS: ABSOLUTE EOSINOPHILS # (AUTO) 0.1 10^3/uL (0.0-0.6); ABSOLUTE LYMPHOCYTES (AUTO) 1.7 10^3/uL (0.5-4.7); ABSOLUTE MONOCYTES (AUTO) 0.4 10^3/uL (0.1-1.4); ABSOLUTE NEUT (AUTO) 1.9 10^3/uL (1.7-8.2); BASOPHILS % (AUTO) 0.6 % (0-2); EOSINOPHILS % (AUTO) 1.4 % (0-6); HEMATOCRIT 32.3 % (36.0-47.0); HEMOGLOBIN 10.8 g/dL (12.0-15.5); HGB HCT DIFFERENCE 0.1; MEAN CORPUSCULAR HGB CONC 33.4 g/dL (32.0-36.0); MEAN CORPUSCULAR VOLUME 93 fl (80-97); MONOCYTES % (AUTO) 9.4 % (3-13); RED BLOOD COUNT 3.49 10^6/uL (3.72-5.28); RED CELL DISTRIBUTION WIDTH 14.3 % (11.5-14.0); SEGMENTED NEUTROPHILS % (AUTO) 47.6 % (42-78); WHITE BLOOD COUNT 4.1 10^3/uL (4.0-10.5)
[2016-07-01 05:57] LABS: ANION GAP 9 (5-19); BLOOD UREA NITROGEN 22 mg/dL (7-20); CALCIUM 8.8 mg/dL (8.4-10.2); CARBON DIOXIDE 23 mmol/L (22-30); CHLORIDE 110 mmol/L (98-107); GLUCOSE 91 mg/dL (75-110); MAGNESIUM 1.6 mg/dL (1.6-2.3)
[2016-07-01 06:05] LABS: POTASSIUM 4.3 mmol/L (3.6-5.0)
[2016-07-01] MEDS: CLONAZEPAM 1 MG TABLET PO PRN (07:04)
[2016-07-01] MEDS: OXYCODONE HCL IR 5 MG TABLET PO PRN ×2 (07:04→10:50)
[2016-07-01 07:45] VITALS: BP 92/39
[2016-07-01 08:48] LABS: POTASSIUM 2.8 mmol/L (3.6-5.0)
[2016-07-01] MEDS: LIPASE/PROTEASE/AMYLASE 1 CAP CAPSULE.DR PO SCH ×3 (08:55)
[2016-07-01] MEDS ORDERED: CEFTRIAXONE 1 GM/D5W RTU 1 GM/50 ML RTUPB IV SCH (10:00)
--- NOTE | 2016-07-01 10:39 | PDOC TRANSFER SUMMARY ---
General - Admit/Disc Date/PCP Admission Date/Primary Care Provider: 06/28/16 05:31 ENMANUEL SANCHEZ PA-C Consulting Editor Producer: Dr. Edward Consulting repair coil winder: Dr. Lambert Discharge Date: 07/01/16 - Discharge Diagnosis (1) Viral illness Is this a current diagnosis for this admission?: Yes (2) History of inflammatory bowel disease Is this a current diagnosis for this admission?: Yes (3) polymicrobial UTI Is this a current diagnosis for this admission?: YesSummary: 06/28/16 05:55 Urine Culture - Final Clean Catch Midstream Citrobacter Koseri Group B Beta Streptococcus (4) Metabolic acidosis Is this a current diagnosis for this admission?: YesSummary: Resolved (5) Short bowel syndrome Is this a current diagnosis for this admission?: Yes (6) Opiate dependence, continuous Is this a current diagnosis for this admission?: Yes (7) Polypharmacy Is this a current diagnosis for this admission?: Yes (8) Benzodiazepine dependence, continuous Is this a current diagnosis for this admission?: Yes (9) Gastroesophageal reflux disease Is this a current diagnosis for this admission?: Yes (10) COPD (chronic obstructive pulmonary disease) Is this a current diagnosis for this admission?: Yes (11) Restless leg syndrome Is this a current diagnosis for this admission?: Yes (12) Acute kidney injury superimposed on chronic kidney disease Is this a current diagnosis for this admission?: YesSummary: Resolved (13) Chronic pain syndrome Is this a current diagnosis for this admission?: Yes (14) Hyponatremia Is this a current diagnosis for this admission?: Yes (15) Ileostomy present Is this a current diagnosis for this admission?: Yes (16) Hypokalemia Is this a current diagnosis for this admission?: Yes (17) Hypocalcemia Is this a current diagnosis for this admission?: Yes - Additional Information Resuscitation Status: Full Code Discharge Diet: As Tolerated Discharge Activity: Activity As Tolerated Home Medications: Acetaminophen [Mapap] 500 mg PO Q4HP PRN 06/28/16 Acetaminophen [Tylenol] 325 mg PO Q4HP PRN 06/28/16 Albuterol Sulfate [Proair Respiclick] 2 puff IH QIDP PRN 06/28/16 Aspirin [Aspirin EC] 81 mg PO DAILY 06/28/16 Cholecalciferol (Vitamin D3) [Vitamin D3] 50,000 unit PO Q7D 06/28/16 Cyanocobalamin (Vitamin B-12) [Vitamin B-12 Inj 1000 Mcg/1 ml Vial] 1,000 mcg IM [id number] 06/28/16 Dicyclomine HCl [Bentyl 20 mg Tablet] 20 mg PO QIDP PRN 06/28/16 Diphenoxylate HCl/Atropine [Diphenoxylate-Atrop 2.5-0.025] 2 each PO QID Duloxetine HCl [Cymbalta] 60 mg PO BID 06/28/16 Esomeprazole Magnesium [Nexium] 40 mg PO DAILY 06/28/16 Guaifenesin [Tussin Mucus-Chest Congestion] 10 ml PO Q6HP PRN 06/28/16 Lipase/Protease/Amylase [Creon Dr 24,000 Units Capsule] 2 cap PO AC 06/28/16 Magnesium Hydroxide [Milk of Magnesia 30 ml Udcup] 30 ml PO HSP PRN 06/28/16 Mintox 30 ml PO ASDIR PRN 06/28/16 Mirtazapine 7.5 mg PO QHS 06/28/16 Mupirocin Calcium [Mupirocin] 15 gm TP BIDP PRN 06/28/16 Neomycin Atkinson/Bacitrac Zn/Poly [Triple Antibiotic Ointment] 1 each TP ASDIR PRN Ondansetron [Ondansetron Odt] 4 mg PO TIDP PRN 06/28/16 Opium Tincture 0.6 ml PO QID 06/28/16 Potassium Chloride [Klor-Con 10 Meq Tablet.sa] 10 meq PO BID 06/28/16 Calcium Carbonate [Os-Roni 500 mg Tablet (Oyster-Shell)] 1,000 mg PO TID tablet 07/01/16 Cefuroxime Axetil [Ceftin 500 mg Tablet] 1 tab PO BID #16 tablet 07/01/16 Cholestyramine/Aspartame [Questran Light 4 gm Packet] 4 gm PO TID #0 packet Clonazepam [Klonopin 1 mg Tablet] 1 mg PO Q6HP PRN #12 tablet 07/01/16 Oxycodone HCl [Oxy-Ir 5 mg Tablet] 10 mg PO Q4HP PRN #20 tablet 07/01/16 History of Present Illness Admission Date/PCP: 06/28/16 05:31 ENMANUEL SANCHEZ PA-C Patient complains of: Pain all over, increased ostomy output History of Present Illness: DONALD ALBRIGHT is a 66 year old female with a past medical history of severe Crohn's disease and remote ileectomy and total colectomy, who is been her usual state of health until approximately 2 weeks ago noting bilateral lower extremity edema which subsequently resolved followed by increased ostomy output and muscle cramping prompting her to seek evaluation emergency room. She denies fever, chills, nausea, with 1 episode of vomiting. She denies any recent change in medications denies diuretics or recent infection. In the emergency room she's found to have acute renal failure with a creatinine of 5.27 from 1.1 just 5 days ago. Remarkably potassium and magnesium are within normal limits. A UA is suggestive of possible UTI. She's been ordered symptomatically management and IV fluids and was admitted. In addition to above the patient tells me that she has been telling the staff and [facility] that she feels like she is dehydrated but apparently they did not listen to her. She denies any fall. She describes an unbearable pain from head to toe described as cramping which has worsened yesterday. She tells me that the pain was so severe that yesterday she even thinks of killing herself but she doesn't think that way today anymore. She said she was in the emergency room 2 days ago that after 2 L of IV fluids. Was sent back to [facility]. She denies any cough or colds. Patient relates that she has had previous episodes of dehydration maybe about a year ago and was hospitalized in another city prior to transfer here. She remembered that she did have an episode of acute renal failure secondary to dehydration and was told that she has baseline chronic kidney disease stage III. She denies any history of kidney stones, known proteinuria nor persistent hematuria. She said she cannot take any nonsteroidal anti-inflammatory agents because these medication tear her stomach. She takes oxycodone for chronic pain. On admission she had a BUN of 32 creatinine of 5.27 with estimated GFR of 8. She also has severe acidosis with CO2 of 11. Previous records shows that her baseline BUN range pretty normal limits and her creatinine range anywhere from 1.1-1.2 with estimated GFR on to 50s today after IV fluid hydration with 2 L of fluid bolus last night and ongoing IV fluids she had a BUN of 35 and creatinine of 3 with estimated GFR of 16. Her CO2 is still low at 14, mildly low sodium of 134.5 and she has severe hypocalcemia with calcium of 6.5. Her urinalysis is suggestive of urinary tract infection with some microhematuria and pyuria. Urine culture is pending. Patient said that she feels a little bit better today than yesterday. She had a total colectomy with ileostomy in 1990 and has done well overall though she does have problems with her ileostomy output off and on. She takes Lomotil to four times a day and tincture of opium four times a day. She has not needed any treatment for inflammatory bowel disease and there has not been any evidence of activity. Hospital Course Hospital Course: The patient was admitted to continuous telemetry unit. Urine analysis and culture was obtained. The patient had findings suggestive of a urinary tract infection. Patient's urine culture revealed polymicrobial findings which were sensitive to Rocephin and the patient received antibiotic coverage. The patient 's symptoms completely resolved. Patient had severe evidence of dehydration by evidence of high output ileostomy. The patient's potassium was replaced and the patient was aggressively hydrated. Upon presentation the patient's creatinine was 5, but after hydration this did improve to baseline 0.2. The patient was seen and evaluated by Dr. Edward with nephrology. The patient's metabolic acidosis was treated with sodium bicarbonate drip. The patient had no episodes of nausea, vomiting, or diarrhea. The patient's nephrotoxic medications were held. The patient's medications were resumed once stabilized. The patient was also seen by gastroenterology Dr. Lambert. The patient gives a conflicting history which is difficult to follow and actually contradictory. The patient has stated that she has Crohn's disease involving the small bowel however later will give a history of ulcerative colitis which resolved with complete colectomy. I am uncertain of the circumstances surrounding this as patient's previous medical records have been difficult to track down and the patient does not know specifics as to her surgery or treatment modalities. The patient has not been on a chronic 5-ASA medication recently. Given that the patient may not have an active inflammatory bowel disease it was felt by gastroenterology the patient symptoms were due to viral process which has ran its course. Had a long discussion with the patient regarding polypharmacy and controlled substance use. The patient admits to finding pills in her ileostomy bag. The patient became extremely defensive and agitated the mere suggestion of consultation regarding pain management and psych. The patient stated that if her medications were changed that she would "kill herself". The patient denied active suicidal or homicidal ideations stating that she would only kill herself if her medications were changed. The patient is now back to baseline and ready for transfer. Physical Exam Vital Signs: Temp Pulse Resp BP Pulse Ox 98.1 F 61 20 95/59 L 98 07/01/16 07:39 07/01/16 07:39 07/01/16 07:39 07/01/16 07:39 07/01/16 07:39 Intake & Output 06/29/16 06/30/16 07/01/16 23:59 23:59 23:59 Intake Total 3171 3789 1455 Output Total 800 1053 Balance 2371 2736 1455 Weight 59.4 kg General appearance: PRESENT: no acute distress, disheveled, well-developed, well -nourished Head exam: PRESENT: atraumatic, normocephalic Eye exam: PRESENT: conjunctiva pink, EOMI, PERRLA. ABSENT: scleral icterus Ear exam: PRESENT: normal external ear exam Mouth exam: PRESENT: moist, tongue midline Neck exam: ABSENT: carotid bruit, JVD, lymphadenopathy, thyromegaly Respiratory exam: PRESENT: clear to auscultation heydi, symmetrical, unlabored. ABSENT: rales, rhonchi, tachypnea, wheezes Cardiovascular exam: PRESENT: RRR. ABSENT: diastolic murmur, rubs, systolic murmur Pulses: PRESENT: normal dorsalis pedis pul Vascular exam: PRESENT: normal capillary refill GI/Abdominal exam: PRESENT: normal bowel sounds, soft. ABSENT: distended, guarding, mass, organolmegaly, rebound, tenderness Rectal exam: PRESENT: deferred Extremities exam: PRESENT: full ROM. ABSENT: calf tenderness, clubbing, pedal edema Neurological exam: PRESENT: alert, awake, oriented to person, oriented to place , oriented to time, oriented to situation, CN II-XII grossly intact. ABSENT: motor sensory deficit Psychiatric exam: PRESENT: agitated, anxious, normal mood. ABSENT: homicidal ideation, suicidal ideation Focused psych exam: PRESENT: restlessness Skin exam: PRESENT: dry, intact, warm. ABSENT: cyanosis, rash Results Laboratory Results: Labs- Last Values WBC 4.1 10^3/uL (4.0-10.5) 07/01/16 05:12 RBC 3.49 10^6/uL (3.72-5.28) L 07/01/16 05:12 Hgb 10.8 g/dL (12.0-15.5) L 07/01/16 05:12 Hct 32.3 % (36.0-47.0) L 07/01/16 05:12 MCV 93 fl (80-97) 07/01/16 05:12 MCH 31.0 pg (27.0-33.4) 07/01/16 05:12 MCHC 33.4 g/dL (32.0-36.0) 07/01/16 05:12 RDW 14.3 % (11.5-14.0) H 07/01/16 05:12 Plt Count 148 10^3/uL (150-450) L 07/01/16 05:12 Seg Neutrophils % 47.6 % (42-78) 07/01/16 05:12 Lymphocytes % 41.0 % (13-45) 07/01/16 05:12 Monocytes % 9.4 % (3-13) 07/01/16 05:12 Eosinophils % 1.4 % (0-6) 07/01/16 05:12 Basophils % 0.6 % (0-2) 07/01/16 05:12 Absolute Neutrophils 1.9 10^3/uL (1.7-8.2) 07/01/16 05:12 Absolute Lymphocytes 1.7 10^3/uL (0.5-4.7) 07/01/16 05:12 Absolute Monocytes 0.4 10^3/uL (0.1-1.4) 07/01/16 05:12 Absolute Eosinophils 0.1 10^3/uL (0.0-0.6) 07/01/16 05:12 Absolute Basophils 0.0 10^3/uL (0.0-0.2) 07/01/16 05:12 Platelet Estimate Cancelled 06/28/16 00:20 ESR 17 mm/hr (0-30) 06/28/16 05:30 Sodium 142.0 mmol/L (137-145) 07/01/16 05:12 Potassium 4.3 mmol/L (3.6-5.0) D 07/01/16 05:12 Chloride 110 mmol/L (98-107) H 07/01/16 05:12 Carbon Dioxide 23 mmol/L (22-30) 07/01/16 05:12 Anion Gap 9 (5-19) 07/01/16 05:12 BUN 22 mg/dL (7-20) H 07/01/16 05:12 Creatinine 1.10 mg/dL (0.52-1.25) 07/01/16 05:12 Est GFR ( Amer) > 60 (>60) 07/01/16 05:12 Est GFR (Non-Af Amer) 50 (>60) L 07/01/16 05:12 Glucose 91 mg/dL (75-110) 07/01/16 05:12 Calcium 8.8 mg/dL (8.4-10.2) 07/01/16 05:12 Phosphorus 4.6 mg/dL (2.5-4.5) H 06/29/16 05:30 Magnesium 1.6 mg/dL (1.6-2.3) 07/01/16 05:12 Total Bilirubin 0.5 mg/dL (0.2-1.3) 06/28/16 00:20 Direct Bilirubin 0.5 mg/dL (0.0-0.4) H 06/28/16 00:20 Indirect Bilirubin Not Reportable 06/28/16 00:20 Neonat Total Bilirubin Not Reportable 06/28/16 00:20 AST 84 U/L (14-36) H 06/28/16 00:20 ALT 33 U/L (9-52) 06/28/16 00:20 Alkaline Phosphatase 167 U/L (38-126) H 06/28/16 00:20 Creatine Kinase 3970 U/L (30-135) H 06/28/16 00:20 Total Protein 10.5 g/dL (6.3-8.2) H 06/28/16 00:20 Albumin 4.3 g/dL (3.5-5.0) 06/28/16 10:30 Lipase 73.1 U/L (23-300) 06/28/16 05:30 Vitamin D 25-Hydroxy 15.1 ng/mL (30.0-100.0) L 06/29/16 05:30 Urine Color YELLOW 06/28/16 05:55 Urine Appearance TURBID 06/28/16 05:55 Urine pH 5.0 (5.0-9.0) 06/28/16 05:55 Ur Specific [place] 1.025 06/28/16 05:55 Urine Protein 100 mg/dL (NEGATIVE) H 06/28/16 05:55 Urine Glucose (UA) NEGATIVE mg/dL (NEGATIVE) 06/28/16 05:55 Urine Ketones NEGATIVE mg/dL (NEGATIVE) 06/28/16 05:55 Urine Blood LARGE (NEGATIVE) H 06/28/16 05:55 Urine Nitrite NEGATIVE (NEGATIVE) 06/28/16 05:55 Urine Bilirubin NEGATIVE (NEGATIVE) 06/28/16 05:55 Urine Urobilinogen NEGATIVE mg/dL (<2.0) 06/28/16 05:55 Ur Leukocyte Esterase LARGE (NEGATIVE) H 06/28/16 05:55 Urine WBC (Auto) >182 /HPF 06/28/16 05:55 Urine RBC (Auto) 79 /HPF 06/28/16 05:55 Urine Bacteria (Auto) 3+ /HPF 06/28/16 05:55 Squamous Epi Cells Auto 100 /HPF 06/28/16 05:55 U Non-Squamous Epis Auto 9 /HPF 06/28/16 05:55 Urine Mucus (Auto) OCC /LPF 06/28/16 05:55 Urine Ascorbic Acid NEGATIVE (NEGATIVE) 06/28/16 05:55 Slides for Path Review Cancelled 06/28/16 00:20 06/28/16 05:55 Urine Culture - Final Clean Catch Midstream Citrobacter Koseri Group B Beta Streptococcus Impressions: Abdomen/Pelvis CT 06/28/16 01:27 IMPRESSION: No acute or suspicious findings. Prior colectomy/ostomy. Transfer Plan - Disposition Transfer Plan: The patient is to follow-up with primary care provider within one week for hospital follow-up area direct and repeat electrolytes. The patient will need to follow-up with Dr. Lambert as needed. Recommend referral to pain management given the patient's large amount of opiates. Consider psychiatric evaluation given the patient's anxiety and depression. - Time Spent with Patient Time spent with patient: Greater than 30 Minutes Qualifiers PATEINT BEING DISCHARGED WITH ANY OF THE FOLLOWING DIAGNOSIS?: No
[2016-07-01] MEDS: CALCIUM CARBONATE 500 MG TABLET PO SCH (10:48)
[2016-07-01] MEDS: ASPIRIN 81 MG TABLET, ENT COATED PO SCH (10:49)
[2016-07-01] MEDS: DULOXETINE HCL 30 MG CAPSULE.DR PO SCH (10:50)
[2016-07-01] MEDS: DIPHENOXYLATE HCL/ATROP SULF 2.5-0.025 MG TABLET PO SCH (10:50)
[2016-07-01] MEDS: LACTOBACILLUS ACIDOPHILUS 250 MG TAB PO SCH (10:51)
[2016-07-01] MEDS: POTASSIUM CHLORIDE 10 MEQ TABLET.SA PO SCH (10:54)
[2016-07-01] MEDS: CHOLESTYRAMINE/ASPARTAME 4 GM PACKET PO SCH (10:58)
== END 2016-07-01 12:30 | disposition home health service (06) | DRG 683 ==
LOC: ER 23:07 → EH 06-28 04:55 → UNDOADMIN 06-28 04:55 → EH 06-28 05:31 → 4S 06-28 08:05
PROVIDERS: ADMIT Internal Medicine; ATTEND Internal Medicine
PROC: 3E0F73Z Introduction of Anti-inflammatory into Respiratory Tract, Via Natural or Artificial Opening (ICD-10-PCS; principal; 2016-06-28)
DX: N17.9 Acute kidney failure, unspecified (principal); K50.919 Crohn's disease, unspecified, with unspecified complications; K91.2 Postsurgical malabsorption, not elsewhere classified; N39.0 Urinary tract infection, site not specified; E87.2 Acidosis; F11.20 Opioid dependence, uncomplicated; F13.20 Sedative, hypnotic or anxiolytic dependence, uncomplicated; E87.1 Hypo-osmolality and hyponatremia; Y84.9 Medical procedure, unspecified as the cause of abnormal reaction of the patient, or of later complication, without mention of misadventure at the time of the procedure; B97.89 Other viral agents as the cause of diseases classified elsewhere; B96.89 Other specified bacterial agents as the cause of diseases classified elsewhere; K21.9 Gastro-esophageal reflux disease without esophagitis; J44.9 Chronic obstructive pulmonary disease, unspecified; G25.81 Restless legs syndrome; G89.4 Chronic pain syndrome; E87.6 Hypokalemia; E83.51 Hypocalcemia; E86.0 Dehydration; N18.3 Chronic kidney disease, stage 3 (moderate); F17.210 Nicotine dependence, cigarettes, uncomplicated; F32.9 Major depressive disorder, single episode, unspecified; F41.9 Anxiety disorder, unspecified; B95.1 Streptococcus, group B, as the cause of diseases classified elsewhere; Z86.14 Personal history of Methicillin resistant Staphylococcus aureus infection; Z93.2 Ileostomy status; Z79.82 Long term (current) use of aspirin; Z79.899 Other long term (current) drug therapy; Z90.49 Acquired absence of other specified parts of digestive tract; Z90.710 Acquired absence of both cervix and uterus; Z88.6 Allergy status to analgesic agent; Z82.3 Family history of stroke; Z80.6 Family history of leukemia
CPT/HCPCS: 36415; 36591; 74022; 74176; 80048; 80053; 81001; 82040; 82306; 82550; 83690; 83735; 84100; 85025; 85652; 87086; 87088; 87186; 93005; 93010; 96361; 96372; 96374; 99285; J0500; J0610; J0696; J0744; J1170; J1642; J1644; J2270; J2405; J2930; J3480; J3490; J7030; J7060; S0028; S0119

== ENCOUNTER → 2016-08-02 | Outpatient (CLI) | payer MEDICARE, MEDICAID ==
[2016-08-03 07:16] LABS: ALANINE AMINOTRANSFERASE 20 U/L (9-52); ALBUMIN 3.2 g/dL (3.5-5.0); ALKALINE PHOSPHATASE 91 U/L (38-126); ANION GAP 11 (5-19); ASPARTATE AMINO TRANSFERASE 19 U/L (14-36); BILIRUBIN,DIRECT 0.2 mg/dL (0.0-0.4); BILIRUBIN,TOTAL 0.2 mg/dL (0.2-1.3); BLOOD UREA NITROGEN 13 mg/dL (7-20); CALCIUM 9.1 mg/dL (8.4-10.2); CARBON DIOXIDE 19 mmol/L (22-30); CHLORIDE 115 mmol/L (98-107); CREATININE RESULT 1.37 mg/dL (0.52-1.25); GLUCOSE 104 mg/dL (75-110); POTASSIUM 4.7 mmol/L (3.6-5.0); SODIUM 144.6 mmol/L (137-145); TOTAL PROTEIN 5.6 g/dL (6.3-8.2)
== END ==
LOC: OD 10:37
PROVIDERS: ATTEND Physician Assistant Surgical
DX: R60.0 Localized edema (principal)
CPT/HCPCS: 36415; 80053

== ENCOUNTER 2016-09-12 12:39 | Emergency (ER) | payer MEDICARE, MEDICAID ==
[2016-09-12] MEDS ORDERED: ALBUTEROL SULFATE 0.083% NEB 2.5 MG/3 ML AMPUL NEB ONE ×3 (13:12→18:33)
--- NOTE | 2016-09-12 13:13 | ER Document Report ---
ED General - General Stated Complaint: FEVER Time Seen by Provider: 09/12/16 12:54 Mode of Arrival: Stretcher Information source: Patient TRAVEL OUTSIDE OF THE [place] IN LAST 30 DAYS: No - HPI Patient complains to provider of: Generalized weakness, altered mental status, difficulty breathing Onset: This morning Onset/Duration: Gradual Quality of pain: Achy Severity: Mild Pain Level: 2 Associated symptoms: Body/muscle aches, Nonproductive cough, Shortness of breath , Weakness Exacerbated by: Denies Relieved by: Denies Notes: Is a 66-year-old female sent from [facility] for generalized weakness with difficulty breathing, nonproductive cough, generalized body aches, increased sleepiness, patient is somnolent on exam, a poor historian and frequently falls asleep during questioning - Related Data Allergies/Adverse Reactions: codeine Allergy (Verified 03/23/16 21:08) pregabalin [From Lyrica] Allergy (Verified 03/23/16 21:08) Past Medical History - General Information source: Patient - Social History Smoking Status: Unknown if Ever Smoked Family History: None, Reviewed & Not Pertinent Pulmonary Medical History: Reports: Hx COPD GI Medical History: Reports: Hx Crohn's Disease, Hx Gastroesophageal Reflux Disease Musculoskeltal Medical History: Reports Hx Arthritis Skin Medical History: Reports Hx MRSA Psychiatric Medical History: Reports: Hx Depression Past Surgical History: Reports: Hx Abdominal Surgery - ostomy, Hx Cholecystectomy, Hx Hysterectomy, Hx Orthopedic Surgery - feet - Immunizations Hx Diphtheria, Pertussis, Tetanus Vaccination: No Hx Pneumococcal Vaccination: 12/23/15 Review of Systems - Review of Systems Constitutional: Malaise, Weakness EENT: No symptoms reported Cardiovascular: No symptoms reported Respiratory: See HPI Genitourinary: No symptoms reported Female Genitourinary: No symptoms reported Musculoskeletal: See HPI Skin: No symptoms reported Hematologic/Lymphatic: No symptoms reported Neurological/Psychological: Confusion -: Yes All other systems reviewed and negative Physical Exam - Vital signs Vitals: Temp 98.9 F 09/12/16 12:45 Interpretation: Hypotensive - General General appearance: Lethargic In distress: Mild - HEENT Head: Normocephalic, Atraumatic Eyes: Normal Conjunctiva: Normal Extraocular movements intact: Yes Eyelashes: Normal Pupils: PERRL Mucous membranes: Dry Pharynx: Normal Neck: Normal - Respiratory Respiratory status: No respiratory distress Chest status: Nontender Breath sounds: Nonproductive cough, Wheezing Chest palpation: Normal - Cardiovascular Rhythm: Regular Heart sounds: Normal auscultation Murmur: No - Abdominal Inspection: Other - colostomy present Distension: No distension Bowel sounds: Normal Tenderness: Nontender Organomegaly: No organomegaly - Back Back: Normal, Nontender - Extremities General upper extremity: Normal inspection, Nontender, Normal color, Normal ROM , Normal temperature General lower extremity: Normal inspection, Nontender, Normal color, Normal ROM , Normal temperature, Normal weight bearing. No: Fiazan's sign - Neurological Cognition: Confused Orientation: Disoriented to events Bonnyman Coma Scale Eye Opening: To Voice Kiran Coma Scale Verbal: Confused Kiran Coma Scale Motor: Obeys Commands Kiran Coma Scale Total: 13 Speech: Normal - Psychological Associated symptoms: Normal affect, Normal mood - Skin Skin Temperature: Warm Skin Moisture: Dry Skin Color: Pale Course - Re-evaluation Re-evalutation: 09/12/16 17:13 A call was placed to [facility], spoke with the transfer center, requested callback regarding patient transfer 09/12/16 17:55 Was discussed with hospitalist, Dr. Gordon, who agreed to accept patient for transfer to [facility] however transfer center says that beds are kind of tight right now and they are unsure whether she will actually get a bed tonight 09/12/16 18:25 Was discussed with hospitalist at [facility], Dr. Alejandro, who graciously accepted patient for transfer, transfer center will call back when a bed is available or let us know if they will not have bed availability tonight 09/12/16 20:10 Patient requires transfer to [facility] for gastroenterology, her hemoglobin went from 11.2 on 08/31/2016 to 7.5 today, she is Hemoccult positive, with no gross blood, she is also noted to have bilateral pneumonia, hypotension , tachycardia, febrile at time of EMS arrival, patient requires transfer to tertiary care center, she is stable at this time for transport - Vital Signs Vital signs: Temp Pulse Resp BP Pulse Ox 99.3 F 99 31 H 103/54 L 93 09/12/16 18:10 09/12/16 18:10 09/12/16 18:36 09/12/16 19:01 09/12/16 19:01 - Laboratory Result Diagrams: 09/12/16 15:10 09/12/16 15:10 Laboratory results interpreted by me: 09/12/16 09/12/16 09/12/16 13:45 15:10 15:10 RBC 2.46 L Hgb 7.5 L Hct 23.9 L MCHC 31.3 L RDW 16.3 H Plt Count 124 L Seg Neutrophils % 79.7 H PT APTT Potassium 3.4 L Chloride 121 H Carbon Dioxide 15 L Creatinine 1.27 H Est GFR ( Amer) 51 L Est GFR (Non-Af Amer) 42 L Calcium 7.8 L Creatine Kinase 289 H NT-Pro-B Natriuret Pep Total Protein 4.7 L Albumin 2.3 L Urine Protein 100 H Urine Blood SMALL H Crossmatch 09/12/16 09/12/16 09/12/16 15:10 15:10 17:12 RBC Hgb Hct MCHC RDW Plt Count Seg Neutrophils % PT 18.3 H APTT 53.3 H Potassium Chloride Carbon Dioxide Creatinine Est GFR ( Amer) Est GFR (Non-Af Amer) Calcium Creatine Kinase NT-Pro-B Natriuret Pep 2540 H Total Protein Albumin Urine Protein Urine Blood Crossmatch See Detail - Diagnostic Test Radiology reviewed: Image reviewed, Reports reviewed - EKG Interpretation by Me EKG shows normal: Sinus rhythm Rate: Normal Rhythm: NSR Critical Care Note - Critical Care Note Total time excluding time spent on procedures (mins): 90 Comments: After his altered mental status, febrile, hypotensive, tachycardic, requiring multiple fluid boluses, antibiotics for pneumonia, also found to be anemic with GI bleed, requiring transfer to tertiary [facility] with gastroenterology services Discharge - Discharge Clinical Impression: Pneumonia Qualifiers: Pneumonia type: due to unspecified organism Laterality: bilateral Lung location : unspecified part of lung Qualified Code(s): J18.9 - Pneumonia, unspecified organism GI bleeding Qualifiers: GI bleed type/associated pathology: unspecified gastrointestinal hemorrhage type Qualified Code(s): K92.2 - Gastrointestinal hemorrhage, unspecified Anemia Qualifiers: Anemia type: unspecified type Qualified Code(s): D64.9 - Anemia, unspecified Hypotension Qualifiers: Hypotension type: unspecified hypotension type Qualified Code(s): I95.9 - Hypotension, unspecified Condition: Serious Disposition: [facility] Referrals: ENMANUEL SANCHEZ PA-C [Primary Care Provider] - Follow up as needed Sepsis - Vital Signs Vitals: Temp Pulse Resp BP Pulse Ox 99.3 F 99 31 H 103/54 L 93 09/12/16 18:10 09/12/16 18:10 09/12/16 18:36 09/12/16 19:01 09/12/16 19:01 Interpretation: Normal - Cardiovascular Peripheral Pulse Strength: Normal Capillary refill: < 3 seconds Rhythm: Regular Heart Sounds: Normal auscultation - Respiratory Breath Sounds: Clear Respiratory Status: No respiratory distress - Skin Skin Color: Pale
[2016-09-12] MEDS: NORMAL SALINE 1000 ML 1,000 ML IV PRN ×5 (13:49→18:05)
--- NOTE | 2016-09-12 14:00 | RADIOLOGY REPORT (SQ) ---
EXAM DESCRIPTION: CHEST SINGLE VIEW COMPLETED DATE/TIME: 09/12/2016 1:41 pm REASON FOR STUDY: db COMPARISON: 03/23/2016 NUMBER OF VIEWS: One view. TECHNIQUE: Single frontal radiographic image of the chest acquired. LIMITATIONS: None. FINDINGS: LUNGS AND PLEURA: Diffuse patchy airspace disease with relative sparing of the right lower lobe. MEDIASTINUM AND HEART: Stable heart size and mediastinal structures. SUPPORT DEVICES: Stable position of right-sided port. BONY STRUCTURES: No acute findings. HARDWARE: None. OTHER: No other significant finding. IMPRESSION: Asymmetric edema or pneumonia. Clinical correlation is needed.
[2016-09-12] MEDS ORDERED: CEFTRIAXONE RTU 1 GM/D5W 50 ML IV ONE (14:14)
[2016-09-12] MEDS ORDERED: AZITHROMYCIN INJ 500 MG VIAL IV ONE (14:14)
[2016-09-12 14:34] LABS: AMORPHOUS SEDIMENT,URINE TRACE /HPF; APPEARANCE,URINE SLIGHTLY-CLOUDY; BILIRUBIN,URINE NEGATIVE (NEGATIVE); GLUCOSE, URINE NEGATIVE (NEGATIVE); KETONES,URINE NEGATIVE (NEGATIVE); LEUKOCYTE ESTERASE,URINE NEGATIVE (NEGATIVE); NITRITE,URINE NEGATIVE (NEGATIVE); PROTEIN,URINE 100 mg/dL (NEGATIVE); URINE SPECIFIC GRAVITY 1.029; UROBILINOGEN,URINE NEGATIVE mg/dL (<2.0)
[2016-09-12] MEDS ORDERED: NORMAL SALINE 1000 ML 1,000 ML IV PRN ×2 (14:44→17:23)
[2016-09-12 14:50] LABS: URINE BARBITURATES SCREEN NEGATIVE; URINE METHADONE SCREEN NEGATIVE; URINE OPIATES LOW UNCONFIRMED POSITIVE; URINE PHENCYCLIDINE SCREEN NEGATIVE
[2016-09-12 15:24] LABS: ABSOLUTE EOSINOPHILS # (AUTO) 0.1 10^3/uL (0.0-0.6); ABSOLUTE LYMPHOCYTES (AUTO) 0.9 10^3/uL (0.5-4.7); ABSOLUTE MONOCYTES (AUTO) 0.3 10^3/uL (0.1-1.4); ABSOLUTE NEUT (AUTO) 5.1 10^3/uL (1.7-8.2); BASOPHILS % (AUTO) 0.3 % (0-2); EOSINOPHILS % (AUTO) 1.9 % (0-6); HEMATOCRIT 23.9 % (36.0-47.0); HGB HCT DIFFERENCE -1.4; LYMPHOCYTES % (AUTO) 13.6 % (13-45); MEAN CORPUSCULAR HEMOGLOBIN 30.4 pg (27.0-33.4); MEAN CORPUSCULAR HGB CONC 31.3 g/dL (32.0-36.0); MEAN CORPUSCULAR VOLUME 97 fl (80-97); MONOCYTES % (AUTO) 4.5 % (3-13); RED BLOOD COUNT 2.46 10^6/uL (3.72-5.28); RED CELL DISTRIBUTION WIDTH 16.3 % (11.5-14.0); SEGMENTED NEUTROPHILS % (AUTO) 79.7 % (42-78); WHITE BLOOD COUNT 6.4 10^3/uL (4.0-10.5)
[2016-09-12 15:35] LABS: PROTHROMBIN TIME 18.3 SEC (11.4-15.4)
[2016-09-12 15:36] LABS: PARTIAL THROMBOPLASTIN TIME 53.3 SEC (23.5-35.8)
[2016-09-12 15:47] LABS: ALANINE AMINOTRANSFERASE 26 U/L (9-52); ALBUMIN 2.3 g/dL (3.5-5.0); ALKALINE PHOSPHATASE 78 U/L (38-126); ANION GAP 9 (5-19); ASPARTATE AMINO TRANSFERASE 30 U/L (14-36); BILIRUBIN,DIRECT 0.3 mg/dL (0.0-0.4); BILIRUBIN,TOTAL 0.3 mg/dL (0.2-1.3); BLOOD UREA NITROGEN 19 mg/dL (7-20); CALCIUM 7.8 mg/dL (8.4-10.2); CARBON DIOXIDE 15 mmol/L (22-30); CHLORIDE 121 mmol/L (98-107); CREATINE KINASE 289 U/L (30-135); CREATININE RESULT 1.27 mg/dL (0.52-1.25); GLUCOSE 102 mg/dL (75-110); POTASSIUM 3.4 mmol/L (3.6-5.0); SODIUM 144.5 mmol/L (137-145); TOTAL PROTEIN 4.7 g/dL (6.3-8.2)
[2016-09-12 15:55] LABS: HEMOGLOBIN 7.5 g/dL (12.0-15.5)
[2016-09-12 15:58] LABS: CREATINE KINASE MB 2.92 ng/mL (<4.55); TROPONIN I 0.019 ng/mL
[2016-09-12] MEDS ORDERED: NORMAL SALINE 250 ML IV PRN (16:27)
[2016-09-12] MEDS ORDERED: PANTOPRAZOLE SODIUM 40 MG VIAL IV ONE (18:07)
[2016-09-12] MEDS ORDERED: PANTOPRAZOLE SODIUM 40 MG VIAL IV PRN (18:07)
--- NOTE | 2016-09-12 18:15 | EKG REPORT ---
SEVERITY:- BORDERLINE ECG - SINUS RHYTHM BORDERLINE T WAVE ABNORMALITIES : Confirmed by: Doni Giang MD 12-Sep-2016 18:15:05
[2016-09-12] MEDS ORDERED: ONDANSETRON HCL INJ/PF 4 MG/2 ML SDV IV ONE (21:53)
[2016-09-12] MEDS ORDERED: HYDROMORPHONE HCL INJ/PF 2 MG/ML AMPULE IV ONE (21:53)
[2016-09-12] MEDS ORDERED: IPRATROPIUM/ALBUTEROL 0.5-2.5 MG/3 ML AMPUL NEB ONE (22:37)
[2016-09-12 23:35] VITALS: BP 115/79
== END 2016-09-12 23:34 | disposition short-term general hospital (02) ==
LOC: ER 12:39
DX: J18.9 Pneumonia, unspecified organism (principal); K92.2 Gastrointestinal hemorrhage, unspecified; D64.9 Anemia, unspecified; I95.9 Hypotension, unspecified; R50.9 Fever, unspecified; R53.1 Weakness; M79.1 Myalgia; J44.9 Chronic obstructive pulmonary disease, unspecified; Z88.6 Allergy status to analgesic agent; Z86.14 Personal history of Methicillin resistant Staphylococcus aureus infection; Z90.710 Acquired absence of both cervix and uterus
CPT/HCPCS: 93005; 36591; 94640 ×2; 99291; 99292; 96361; 96365; 96367; 86900; 86901; 36415; 87040; 87086; 82553; 36430; 86850; 82550; 85025; 85610; 85730; 82272; 80053; 81001; 84484; 80307; 86920; 83605; 83880; 71010; 93010; P9016; J1170; C9113; J2405; J7030; J0456; J0696; A9270; S0164

== ENCOUNTER 2016-10-20 20:17 | Emergency (ER) | payer MEDICARE, MEDICAID ==
--- NOTE | 2016-10-20 20:38 | ER Document Report ---
ED General - General Stated Complaint: NEEDS NEW ILIOSTOMY BAGS Time Seen by Provider: 10/20/16 20:36 Notes: Patient is a 66-year-old female who presents from nursing facility with a need for an ileostomy bag change. She denies any additional complaints or concerns and states that she was referred to the emergency department as they did not have the appropriate supplies at her facility. TRAVEL OUTSIDE OF THE [place] IN LAST 30 DAYS: No - Related Data Allergies/Adverse Reactions: codeine Allergy (Verified 03/23/16 21:08) pregabalin [From Lyrica] Allergy (Verified 03/23/16 21:08) Past Medical History - General Information source: Patient - Social History Smoking Status: Never Smoker Frequency of alcohol use: None Drug Abuse: None Lives with: [facility] Family History: Reviewed & Not Pertinent Pulmonary Medical History: Reports: Hx COPD GI Medical History: Reports: Hx Crohn's Disease, Hx Gastroesophageal Reflux Disease Musculoskeltal Medical History: Reports Hx Arthritis Skin Medical History: Reports Hx MRSA Psychiatric Medical History: Reports: Hx Depression Past Surgical History: Reports: Hx Abdominal Surgery - ostomy, Hx Cholecystectomy, Hx Hysterectomy, Hx Orthopedic Surgery - feet - Immunizations Hx Diphtheria, Pertussis, Tetanus Vaccination: No Hx Pneumococcal Vaccination: 12/23/15 Review of Systems - Review of Systems Notes: Constitutional: Negative for fever. HENT: Negative for sore throat. Eyes: Negative for visual changes. Cardiovascular: Negative for chest pain. Respiratory: Negative for shortness of breath. Gastrointestinal: Negative for abdominal pain, vomiting or diarrhea. Genitourinary: Negative for dysuria. Musculoskeletal: Negative for back pain. Skin: Negative for rash. Neurological: Negative for headaches, weakness or numbness. 10 point ROS negative except as marked above and in HPI. Physical Exam - Vital signs Notes: PHYSICAL EXAMINATION: Limited as patient does clinical assessment GENERAL: Well-appearing, well-nourished and in no acute distress. HEAD: Atraumatic, normocephalic. EYES: sclera anicteric, conjunctiva are normal. ENT: Moist mucous membranes. LUNGS: Normal work of breathing HEART: 2+ radial pulses bilaterally Abdomen: Ileostomy site without evidence of acute infection or surrounding erythema. Ostomy bag in place. NEUROLOGICAL: No focal neurological deficits. Moves all extremities spontaneously PSYCH: Normal mood, normal affect. SKIN: Warm, Dry, normal turgor, no rashes or lesions noted. Course - Re-evaluation Re-evalutation: 10/20/16 20:37 Patient presented from her facility due to the need of a new ileostomy bag. This was placed and patient declined any further assessment. She denied any additional complaints. She will be discharged per her request. Discharge - Discharge Clinical Impression: Ileostomy bag changed Condition: Good Disposition: HOME, SELF-CARE Additional Instructions: Please return to the emergency room immediately if you experience any concerning symptoms including high fevers, severe headache, chest pain, difficulty breathing, abdominal pain, slurred speech, numbness or weakness in your arms or legs, or any other symptom that concerns you. Referrals: DOMINIQUE JOYA MD [Primary Care Provider] - Follow up as needed
== END 2016-10-20 20:50 | disposition home or self-care (01) ==
LOC: ER 20:17
DX: Z43.2 Encounter for attention to ileostomy (principal); J44.9 Chronic obstructive pulmonary disease, unspecified; Z88.5 Allergy status to narcotic agent; Z86.14 Personal history of Methicillin resistant Staphylococcus aureus infection
CPT/HCPCS: 99284

== ENCOUNTER 2016-10-25 05:16 | Emergency (ER) | payer MEDICARE, MEDICAID ==
--- NOTE | 2016-10-25 06:30 | ER Document Report ---
HPI - HPI Notes: Patient is a 66-year-old female who presents the ED stating that she needs her ileostomy bag replaced because it has ruptured. Patient states that she has no other concerns or complaints and that is all she wants she can go home. The rupture occurred prior to arrival. Denies any headache, fever, URI, sore throat , chest pain, palpitations, syncope, cough, shortness of breath, wheeze, dyspnea , abdominal pain, nausea/vomiting/diarrhea, urinary retention, dysuria, hematuria, or rash. - ROS Notes: REVIEW OF SYSTEMS: CONSTITUTIONAL : Denies fever, chills, or sweats. Denies recent illness. EENT: Denies eye, ear, throat, or mouth pain or symptoms. Denies nasal or sinus congestion or discharge. Denies throat, tongue, or mouth swelling or difficulty swallowing. CARDIOVASCULAR: Denies chest pain. Denies palpitations or racing or irregular heart beat. Denies ankle edema. RESPIRATORY: Denies cough, cold, or chest congestion. Denies shortness of breath, difficulty breathing, or wheezing. GASTROINTESTINAL: see hpi GENITOURINARY: Denies difficulty urinating, painful urination, burning, frequency, blood in urine, or discharge. MUSCULOSKELETAL: Denies back or neck pain or stiffness. Denies joint pain or swelling. SKIN: Denies rash, lesions or sores. NEUROLOGICAL: Denies confusion or altered mental status. Denies passing out or loss of consciousness. Denies dizziness or lightheadedness. Denies headache. Denies weakness or paralysis or loss of use of either side. Denies problems with gait or speech. Denies sensory loss, numbness, or tingling. ALL OTHER SYSTEMS REVIEWED AND NEGATIVE. Dictation was performed using [employer] voice recognition software Past Medical History - Social History Smoking Status: Unknown if Ever Smoked Family History: Reviewed & Not Pertinent Pulmonary Medical History: Reports: Hx COPD GI Medical History: Reports: Hx Crohn's Disease, Hx Gastroesophageal Reflux Disease Musculoskeltal Medical History: Reports Hx Arthritis Skin Medical History: Reports Hx MRSA Psychiatric Medical History: Reports: Hx Depression Past Surgical History: Reports: Hx Abdominal Surgery - ostomy, Hx Cholecystectomy, Hx Hysterectomy, Hx Orthopedic Surgery - feet - Immunizations Hx Diphtheria, Pertussis, Tetanus Vaccination: No Hx Pneumococcal Vaccination: 12/23/15 Vertical Provider Document - CONSTITUTIONAL Agree With Documented VS: Yes Notes: PHYSICAL EXAMINATION: GENERAL: Well-appearing, well-nourished and in no acute distress. LUNGS: Breath sounds clear to auscultation bilaterally and equal. No wheezes rales or rhonchi. HEART: Regular rate and rhythm without murmurs, rubs, gallops. ABDOMEN: Soft, nontender, nondistended abdomen. No guarding, no rebound. No masses appreciated. Normal bowel sounds present. No CVA tenderness bilaterally. Ileostomy already replaced, no leaking noted. No skin irritation or signs of infection. PSYCH: Normal mood, normal affect. SKIN: Warm, Dry, normal turgor, no rashes or lesions noted. - INFECTION CONTROL TRAVEL OUTSIDE OF THE [place] IN LAST 30 DAYS: No - RESPIRATORY O2 Sat by Pulse Oximetry: 98 Course - Re-evaluation Re-evalutation: 10/25/16 06:27 Patient is an afebrile, well-hydrated, 66-year-old female who presents the ED with an ileostomy bag rupture in need of replacement. Vitals are stable. PE otherwise unremarkable. Ileostomy bag was replaced. Patient would like to go home. Conservative measures for symptoms and monitor for any other issues with her ileostomy bag. Recheck with her PCM this week. Return to the ED with any worsening/concerning symptoms otherwise as reviewed in discharge. Patient is in agreement. - Vital Signs Vital signs: Temp Pulse Resp BP Pulse Ox 97.3 F 75 18 104/56 L 98 10/25/16 05:44 10/25/16 05:44 10/25/16 05:44 10/25/16 05:44 10/25/16 05:44 Discharge - Discharge Clinical Impression: Ileostomy bag changed Condition: Stable Disposition: HOME, SELF-CARE Additional Instructions: Keep the skin clean Monitor for any other rupture or issues with your ileostomy bag Maintain adequate fluid and food intake Recheck with your PCM this week Return to the ED with any worsening symptoms and/or development of fever, headache, chest pain, palpitations, syncope, shortness of breath, trouble breathing, abdominal pain, n/v/d, blood in stool/urine, loss of control of bowel /bladder, urinary retention, ileostomy bag rupture/leak, skin infection/ irritation, or other worsening symptoms that are concerning to you. Referrals: [facility] [Provider Group] - Follow up as needed
[2016-10-25 06:33] VITALS: BP 112/72
== END 2016-10-25 06:55 | disposition home or self-care (01) ==
LOC: ER 05:16
DX: Z43.2 Encounter for attention to ileostomy (principal); Z86.14 Personal history of Methicillin resistant Staphylococcus aureus infection; Z90.49 Acquired absence of other specified parts of digestive tract; Z90.710 Acquired absence of both cervix and uterus
CPT/HCPCS: 99284

== ENCOUNTER 2016-11-07 12:03 | Emergency (ER) | payer MEDICARE, MEDICAID ==
[2016-11-07 12:09] VITALS: BP 124/85
--- NOTE | 2016-11-07 12:22 | ER Document Report ---
ED General - General Chief Complaint: Rectal Pain Stated Complaint: WEAKNESS Time Seen by Provider: 11/07/16 12:17 Notes: Patient presents with a history of chronic abdominal and rectal pain secondary to Crohn's disease. She states she has a colostomy due to multiple intestinal operations. She states because of this she has been on oxycodone 10 mg 4 times a day for years. She states she was recently transferred to a new assisted living facility and therefore signed a new doctor. This new doctor will not prescribe her any narcotics. She states she has been out of the oxycodone for 3 days. She states she is feeling very anxious and agitated. She has decreased appetite. She is having cramping around the intestinal and rectal areas. Nothing makes it better or worse. It is constant and severe. She denies any new fevers any new vomiting. She denies any blood in her colostomy bag. TRAVEL OUTSIDE OF THE [place] IN LAST 30 DAYS: No - Related Data Allergies/Adverse Reactions: codeine Allergy (Verified 11/07/16 12:09) pregabalin [From Lyrica] Allergy (Verified 11/07/16 12:09) Past Medical History - General Information source: Patient - Social History Smoking Status: Current Every Day Smoker Chew tobacco use (# tins/day): No Frequency of alcohol use: None Drug Abuse: None Family History: Reviewed & Not Pertinent Pulmonary Medical History: Reports: Hx COPD Renal/ Medical History: Denies: Hx Peritoneal Dialysis GI Medical History: Reports: Hx Crohn's Disease, Hx Gastroesophageal Reflux Disease Musculoskeltal Medical History: Reports Hx Arthritis Skin Medical History: Reports Hx MRSA Psychiatric Medical History: Reports: Hx Depression Past Surgical History: Reports: Hx Abdominal Surgery - ostomy, Hx Cholecystectomy, Hx Hysterectomy, Hx Orthopedic Surgery - feet, Hx Rectal Surgery - removed - Immunizations Hx Diphtheria, Pertussis, Tetanus Vaccination: No Hx Pneumococcal Vaccination: 12/23/15 Review of Systems - Review of Systems Constitutional: denies: Chills, Fever Cardiovascular: denies: Chest pain, Palpitations Respiratory: denies: Cough, Short of breath Genitourinary: denies: Dysuria, Frequency Physical Exam - Vital signs Vitals: Temp Pulse Resp BP Pulse Ox 98.0 F 91 20 124/85 99 11/07/16 12:07 11/07/16 12:07 11/07/16 12:07 11/07/16 12:07 11/07/16 12:07 Interpretation: Normal - Respiratory Respiratory status: No respiratory distress Chest status: Nontender Breath sounds: Normal Chest palpation: Normal - Cardiovascular Rhythm: Regular Heart sounds: Normal auscultation Murmur: No - Abdominal Inspection: Other - colostomy Distension: No distension Tenderness: Nontender - Neurological Neuro grossly intact: Yes Cognition: Normal Orientation: AAOx4 Warren Coma Scale Eye Opening: Spontaneous Kiran Coma Scale Verbal: Oriented Warren Coma Scale Motor: Obeys Commands Warren Coma Scale Total: 15 Speech: Normal Motor strength normal: LUE, RUE, LLE, RLE Sensory: Normal - Psychological Associated symptoms: Anxious, Decreased appetite - Skin Skin Temperature: Warm Skin Moisture: Dry Skin Color: Normal Course - Re-evaluation Re-evalutation: 11/07/16 12:19 I informed patient that I am only can be able to give her 5 days worth of her pain medication that she is going to have to get into pain management. She states the assisted living facility is working on this referral. - Vital Signs Vital signs: Temp Pulse Resp BP Pulse Ox 98.0 F 91 20 124/85 99 11/07/16 12:07 11/07/16 12:07 11/07/16 12:07 11/07/16 12:07 11/07/16 12:07 Discharge - Discharge Clinical Impression: Opiate withdrawal, Crohns disease, Opiate dependence, continuous Condition: Stable Disposition: HOME, SELF-CARE Additional Instructions: Please obtain a referral to pain management as soon as possible. Prescriptions: Oxycodone HCl [Oxycodone HCl 10 MG Tablet] 1 tab PO Q6H PRN #20 tablet PRN Reason: PAIN
== END 2016-11-07 12:30 | disposition home or self-care (01) ==
LOC: ER 12:03
DX: F11.23 Opioid dependence with withdrawal (principal); F41.9 Anxiety disorder, unspecified; R63.0 Anorexia; R25.2 Cramp and spasm; T40.2X5A Adverse effect of other opioids, initial encounter; Y92.199 Unspecified place in other specified residential institution as the place of occurrence of the external cause; K50.90 Crohn's disease, unspecified, without complications; F17.200 Nicotine dependence, unspecified, uncomplicated; J44.9 Chronic obstructive pulmonary disease, unspecified; Z93.3 Colostomy status; Z88.5 Allergy status to narcotic agent; Z88.6 Allergy status to analgesic agent; Z86.14 Personal history of Methicillin resistant Staphylococcus aureus infection
CPT/HCPCS: 99284

== ENCOUNTER → 2016-11-11 | Outpatient (CLI) | payer MEDICARE, MEDICAID ==
[2016-11-11 09:16] LABS: HEMATOCRIT 34.3 % (36.0-47.0); HEMOGLOBIN 11.3 g/dL (12.0-15.5); HGB HCT DIFFERENCE -0.4; MEAN CORPUSCULAR HEMOGLOBIN 32.3 pg (27.0-33.4); MEAN CORPUSCULAR HGB CONC 32.9 g/dL (32.0-36.0); MEAN CORPUSCULAR VOLUME 98 fl (80-97); RED CELL DISTRIBUTION WIDTH 16.3 % (11.5-14.0); WHITE BLOOD COUNT 3.5 10^3/uL (4.0-10.5)
[2016-11-11 09:33] LABS: ALANINE AMINOTRANSFERASE 22 U/L (9-52); ALBUMIN 3.7 g/dL (3.5-5.0); ALKALINE PHOSPHATASE 106 U/L (38-126); ANION GAP 15 (5-19); ASPARTATE AMINO TRANSFERASE 21 U/L (14-36); BILIRUBIN,DIRECT 0.3 mg/dL (0.0-0.4); BILIRUBIN,TOTAL 0.3 mg/dL (0.2-1.3); BLOOD UREA NITROGEN 16 mg/dL (7-20); CALCIUM 9.3 mg/dL (8.4-10.2); CARBON DIOXIDE 15 mmol/L (22-30); CHLORIDE 114 mmol/L (98-107); CREATININE RESULT 1.51 mg/dL (0.52-1.25); GLUCOSE 79 mg/dL (75-110); MAGNESIUM 1.6 mg/dL (1.6-2.3); PHOSPHORUS 4.5 mg/dL (2.5-4.5); POTASSIUM 3.9 mmol/L (3.6-5.0); SODIUM 143.9 mmol/L (137-145); TOTAL PROTEIN 6.5 g/dL (6.3-8.2)
[2016-11-11 10:37] LABS: FOLATE 6.82 ng/mL (>2.76)
== END ==
LOC: OD 07:37
PROVIDERS: ATTEND Internal Medicine Gastroenterology
DX: E53.8 Deficiency of other specified B group vitamins (principal); K50.00 Crohn's disease of small intestine without complications
CPT/HCPCS: 36415; 80053; 82607; 82728; 82746; 83735; 84100; 85027

== ENCOUNTER 2016-11-14 10:40 | Emergency (ER) | payer MEDICARE, MEDICAID ==
[2016-11-14 10:44] VITALS: BP 138/71
--- NOTE | 2016-11-14 11:08 | ER Document Report ---
HPI - HPI Patient complains to provider of: medication refill Onset: Other - chronic Onset/Duration: Persistent Quality of pain: Sharp, Stabbing, Throbbing Severity: Severe Pain Level: 5 Context: 66-year-old female presents to ED for complaint of chronic abdominal and rectal pain secondary to Crohn's disease. She states she had a colostomy with multiple intestinal operations. She states she no longer has a rectum and most of her colon. She states she has been on oxycodone 10 mg 4 times a day for years. She states she was told by her primary doctor that she could not get any oxycodone so she came to the emergency room about a week ago and was given 7 days worth of oxycodone tens. She states she is out of them and is not sure when she is getting into pain management. She states she has signed up with one but they have not started her prescriptions yet. She states she has been out of oxycodone for 3 days. She was prescribed oxycodone 10 mg 1 every 6 hours as needed with 20 tablets on 11/07/2016. She states she has a hard time eating or drinking and she feels anxious and agitated all the time. Patient was in no acute distress at the time of the visit she was speaking clearly in full sentences. She denies any fevers nausea or vomiting and denies any blood in her colostomy bag. Associated Symptoms: Other - Rectal pain and poor appetite requesting refill on oxycodone Similar symptoms previously: Yes Recently seen / treated by doctor: Yes - ROS ROS below otherwise negative: Yes - CONSTITUTIONAL Constitutional: DENIES: Fever, Chills - EENT EENT: DENIES: Sore Throat, Ear Pain, Nasal Drainage-Clear, Nasal Drainage- Purulent, Congestion, Eye problems - NEURO Neurology: DENIES: Headache, Weakness, Vision blurred, Dizzinesss / Vertigo - CARDIOVASCULAR Cardiovascular: DENIES: Chest pain - RESPIRATORY Respiratory: DENIES: Trouble Breathing, Coughing - GASTROINTESTINAL Gastrointestinal: REPORTS: Abdominal Pain. DENIES: Nausea, Patient vomiting, Diarrhea, Constipation, Black / Bloody Stools - URINARY Urinary: DENIES: Dysuria, Urgency, Frequency - REPRODUCTIVE Reproductive: DENIES: :, Postmenopausal, Abnormal bleeding / discharge - MUSCULOSKELETAL Musculoskeletal: DENIES: Extremity pain, Back Pain, Neck Pain, Swelling - DERM Skin Color: Normal Past Medical History - General Information source: Patient - Social History Smoking Status: Current Every Day Smoker Cigarette use (# per day): Yes Chew tobacco use (# tins/day): No Smoking Education Provided: Yes - less than 2min Frequency of alcohol use: None Drug Abuse: None Lives with: Family Family History: Reviewed & Not Pertinent Patient has suicidal ideation: No Patient has homicidal ideation: No - Past Medical History Cardiac Medical History: Reports: None Pulmonary Medical History: Reports: Hx COPD EENT Medical History: Reports: None Neurological Medical History: Reports: None Endocrine Medical History: Reports: None Renal/ Medical History: Reports: None Malignancy Medical History: Reports: None GI Medical History: Reports: Hx Crohn's Disease, Hx Gastroesophageal Reflux Disease, Hx Colonoscopy, Hx Endoscopy Musculoskeltal Medical History: Reports Hx Arthritis, Reports Hx Musculoskeletal Deformity Skin Medical History: Reports Hx MRSA Psychiatric Medical History: Reports: Hx Depression Traumatic Medical History: Reports: None Infectious Medical History: Reports: None Past Surgical History: Reports: Hx Abdominal Surgery - ostomy, Hx Cholecystectomy, Hx Hysterectomy, Hx Orthopedic Surgery - feet, Hx Rectal Surgery - removed - Immunizations Hx Diphtheria, Pertussis, Tetanus Vaccination: No Hx Pneumococcal Vaccination: 12/23/15 Vertical Provider Document - CONSTITUTIONAL Agree With Documented VS: Yes Exam Limitations: No Limitations General Appearance: WD/WN, Mild Distress - INFECTION CONTROL TRAVEL OUTSIDE OF THE [place] IN LAST 30 DAYS: No - HEENT HEENT: Atraumatic, Normal ENT Exam, Normocephalic - RESPIRATORY Respiratory: Breath Sounds Normal, No Respiratory Distress O2 Sat by Pulse Oximetry: 96 - CARDIOVASCULAR Cardiovascular: Regular Rate, Regular Rhythm, No Murmur - GI/ABDOMEN Gastrointestinal: Abdomen Soft, Abdomen Tender - Colostomy - BACK Back: Normal Inspection - MUSCULOSKELETAL/EXTREMETIES Musculoskeletal/Extremeties: MAEW, FROM, Non-Tender - NEURO Level of Consciousness: Awake, Alert, Appropriate Motor/Sensory: No Motor Deficit - DERM Integumentary: Warm, Dry, No Rash Course - Re-evaluation Re-evalutation: 11/14/16 13:24 Patient was very adamant that she came to the emergency room week ago and the ER doctor gave her a prescription for oxycodone 20 pills and that she had run out of these and that I should be able to write her another prescription. I explained to the patient that this was a chronic problem and that we do not treat chronic problems with narcotics. I explained to her that she had been given a week's worth of narcotics last week and had been told she need to follow -up with pain management as we did not prescribe narcotics for chronic pain. She states that she has an appointment and that her primary doctor will not give her narcotics any longer. I offered and gave the patient a clonidine for her withdrawal symptoms but told her she would need to use Tylenol for her chronic pain or follow-up with her primary doctor. I did go and consult with Dr. Rodarte who read the chart with me from the last visit and he agreed that the patient was not to get a prescription for any narcotics. - Vital Signs Vital signs: Temp Pulse Resp BP Pulse Ox 98.6 F 89 22 H 138/71 H 96 11/14/16 10:43 11/14/16 10:43 11/14/16 10:43 11/14/16 10:43 11/14/16 10:43 Discharge - Discharge Clinical Impression: Medication refill for oxycodone Condition: Stable Disposition: HOME, SELF-CARE Additional Instructions: Chronic Pain Control Stress, inactivity, and depression make pain more severe regardless of the cause of the pain. Stress and poor physical condition can cause pain such as headaches and backache. Relaxation: Rest in a quiet place with your eyes closed for 20 minutes twice daily. Concentrate on a pleasant image, or simply "feel" your breathing. Clear your mind. Stress management: Deal with your "stressors." Either take action, or eliminate the stressor from your life. Don't let things hang over you. Accept those things you can't change. Nutrition: Eat small, balanced meals -- don't skip, don't overeat. Meals should be high-carbohydrate, low-sugar, low-fat. Exercise: Exercise helps painful conditions and eases stress. Get 30 minutes of moderate exercise, five days a week. Do an activity that does not flare your pain. Precautions: Pain which continues to disrupt daily activities, or which changes in nature, requires a medical evaluation. Pain Clinic referral is available. We do not manage chronic pain in the Emergency Department. We will try to appropriately help you through an acute flare of your chronic painful condition , but for on-going chronic pain that does not improve, you will need to see your private doctor or hand painter. We do not provide repeated medication management of chronic painful conditions. If you wish, we can provide the name of local pain management physicians. You will need to follow-up with your primary doctor or a local urgent care as I have described to you and given you a copy of the hospital policy concerning chronic pain management we do not prescribe narcotics for chronic pain. FOLLOW-UP CARE: If you have been referred to a physician for follow-up care, call the physician s office for an appointment as you were instructed or within the next two days. If you experience worsening or a significant change in your symptoms, notify the physician immediately or return to the Emergency Department at any time for re-evaluation. Forms: Elevated Blood Pressure, Smoking Cessation Education Referrals: DOMINIQUE JOYA MD [Primary Care Provider] - Follow up as needed
[2016-11-14] MEDS ORDERED: CLONIDINE HCL 0.1 MG TABLET PO ONE (11:16)
== END 2016-11-14 11:23 | disposition home or self-care (01) ==
LOC: ER 10:40
DX: Z76.0 Encounter for issue of repeat prescription (principal); G89.29 Other chronic pain; R10.9 Unspecified abdominal pain; K62.89 Other specified diseases of anus and rectum; K50.90 Crohn's disease, unspecified, without complications; R63.0 Anorexia; F17.210 Nicotine dependence, cigarettes, uncomplicated; Z71.6 Tobacco abuse counseling; Z90.49 Acquired absence of other specified parts of digestive tract; Z86.14 Personal history of Methicillin resistant Staphylococcus aureus infection; Z90.710 Acquired absence of both cervix and uterus
CPT/HCPCS: 99281; A9270

== ENCOUNTER → 2016-12-22 | Outpatient (CLI) | payer MEDICARE, MEDICAID ==
--- NOTE | 2016-12-22 13:05 | RADIOLOGY REPORT (SQ) ---
EXAM DESCRIPTION: CHEST PA/LAT COMPLETED DATE/TIME: 12/22/2016 12:26 pm REASON FOR STUDY: NONSPECIFIC REACTION TO TB SKIN TEST WITHOUT ACTIVE TUBERCULOSIS COMPARISON: Chest film 06/26/2016, 03/23/2016 EXAM PARAMETERS: NUMBER OF VIEWS: two views TECHNIQUE: Digital Frontal and Lateral radiographic views of the chest acquired. RADIATION DOSE: NA LIMITATIONS: none FINDINGS: LUNGS AND PLEURA: No opacities, masses or pneumothorax. No pleural effusion. MEDIASTINUM AND HILAR STRUCTURES: No masses or contour abnormalities. HEART AND VASCULAR STRUCTURES: Heart normal size. No evidence for failure. BONES: Osteoporotic HARDWARE: Right-sided permanent central line tip superior vena cava. Clips right upper quadrant post cholecystectomy. OTHER: No other significant finding. IMPRESSION: No acute infiltrates. No cavitary lesions. No mediastinal adenopathy. TECHNICAL DOCUMENTATION: JOB ID: [id number] [employer]- All Rights Reserved
== END ==
LOC: RAD 11:59
PROVIDERS: ATTEND Internal Medicine
DX: Z12.31 Encounter for screening mammogram for malignant neoplasm of breast (principal); R76.11 Nonspecific reaction to tuberculin skin test without active tuberculosis
CPT/HCPCS: 71020

== ENCOUNTER → 2016-12-27 | Outpatient (CLI) | payer MEDICARE, MEDICAID | LOC: WI 07:46 | PROVIDERS: ATTEND Internal Medicine | DX: Z12.31 Encounter for screening mammogram for malignant neoplasm of breast (principal) | CPT/HCPCS: 77063; G0202; 77067 ==

== ENCOUNTER 2017-01-30 10:11 | Emergency (ER) | payer MEDICARE, MEDICAID ==
[2017-01-30 10:54] LABS: ABSOLUTE LYMPHOCYTES (AUTO) 0.8 10^3/uL (0.5-4.7); ABSOLUTE MONOCYTES (AUTO) 0.3 10^3/uL (0.1-1.4); ABSOLUTE NEUT (AUTO) 8.2 10^3/uL (1.7-8.2); BASOPHILS % (AUTO) 0.3 % (0-2); EOSINOPHILS % (AUTO) 0.2 % (0-6); HEMATOCRIT 30.6 % (36.0-47.0); HEMOGLOBIN 10.5 g/dL (12.0-15.5); HGB HCT DIFFERENCE 0.9; LYMPHOCYTES % (AUTO) 8.3 % (13-45); MEAN CORPUSCULAR HGB CONC 34.3 g/dL (32.0-36.0); MEAN CORPUSCULAR VOLUME 99 fl (80-97); MONOCYTES % (AUTO) 3.6 % (3-13); RED BLOOD COUNT 3.09 10^6/uL (3.72-5.28); RED CELL DISTRIBUTION WIDTH 14.1 % (11.5-14.0); SEGMENTED NEUTROPHILS % (AUTO) 87.6 % (42-78); WHITE BLOOD COUNT 9.3 10^3/uL (4.0-10.5)
[2017-01-30 11:22] LABS: ALANINE AMINOTRANSFERASE 30 U/L (9-52); ALBUMIN 3.6 g/dL (3.5-5.0); ALKALINE PHOSPHATASE 108 U/L (38-126); ANION GAP 12 (5-19); ASPARTATE AMINO TRANSFERASE 14 U/L (14-36); BILIRUBIN,DIRECT 0.4 mg/dL (0.0-0.4); BILIRUBIN,TOTAL 0.4 mg/dL (0.2-1.3); BLOOD UREA NITROGEN 13 mg/dL (7-20); CALCIUM 9.3 mg/dL (8.4-10.2); CARBON DIOXIDE 18 mmol/L (22-30); CHLORIDE 112 mmol/L (98-107); CREATININE RESULT 0.99 mg/dL (0.52-1.25); GLUCOSE 97 mg/dL (75-110); LIPASE 82.4 U/L (23-300); POTASSIUM 4.5 mmol/L (3.6-5.0); SODIUM 141.9 mmol/L (137-145); TOTAL PROTEIN 6.1 g/dL (6.3-8.2)
[2017-01-30] MEDS ORDERED: ONDANSETRON HCL INJ/PF 4 MG/2 ML SDV IV ONE (11:28)
[2017-01-30] MEDS ORDERED: NORMAL SALINE 1000 ML 1,000 ML IV ONE (12:00)
[2017-01-30] MEDS ORDERED: METOCLOPRAMIDE HCL INJ/PF 10 MG/2 ML SDV IV ONE (12:00)
--- NOTE | 2017-01-30 12:07 | ER Document Report ---
ED General - General Chief Complaint: Vomiting Stated Complaint: ABDOMINAL PAIN Time Seen by Provider: 01/30/17 10:16 Mode of Arrival: Ambulatory Information source: Patient Notes: 66 yr old female hx of crohns with surgical resection of her large bowel and rectum. Pt notes nausea vomiting and diarrhea over the past 2 days and unable ot eat since sat. pt denies any fevers or chill, admits ot abd cramping. pt states she is dehydrated. TRAVEL OUTSIDE OF THE [place] IN LAST 30 DAYS: No - HPI Onset: Other Onset/Duration: Sudden Quality of pain: Cramping Severity: Mild Pain Level: 1 Associated symptoms: Diarrhea, Nausea, Vomiting Exacerbated by: Denies Relieved by: Denies Similar symptoms previously: Yes Recently seen / treated by doctor: Yes - Related Data Allergies/Adverse Reactions: codeine Allergy (Verified 11/14/16 10:43) pregabalin [From Lyrica] Allergy (Verified 11/14/16 10:43) Past Medical History - Social History Smoking Status: Former Smoker Cigarette use (# per day): No Chew tobacco use (# tins/day): No Smoking Education Provided: No Frequency of alcohol use: None Drug Abuse: None Family History: Reviewed & Not Pertinent Patient has suicidal ideation: No Patient has homicidal ideation: No Pulmonary Medical History: Reports: Hx COPD Renal/ Medical History: Denies: Hx Peritoneal Dialysis GI Medical History: Reports: Hx Crohn's Disease, Hx Gastroesophageal Reflux Disease, Hx Colonoscopy, Hx Endoscopy Musculoskeltal Medical History: Reports Hx Arthritis, Reports Hx Musculoskeletal Deformity Skin Medical History: Reports Hx MRSA Psychiatric Medical History: Reports: Hx Depression Past Surgical History: Reports: Hx Abdominal Surgery - ostomy, Hx Cholecystectomy, Hx Hysterectomy, Hx Orthopedic Surgery - feet, Hx Rectal Surgery - removed - Immunizations Hx Diphtheria, Pertussis, Tetanus Vaccination: No Hx Pneumococcal Vaccination: 12/23/15 Review of Systems - Review of Systems Notes: REVIEW OF SYSTEMS: CONSTITUTIONAL : Denies fever, chills, or sweats. Denies recent illness. EENT: Denies eye, ear, throat, or mouth pain or symptoms. Denies nasal or sinus congestion or discharge. Denies throat, tongue, or mouth swelling or difficulty swallowing. CARDIOVASCULAR: Denies chest pain. Denies palpitations or racing or irregular heart beat. Denies ankle edema. RESPIRATORY: Denies cough, cold, or chest congestion. Denies shortness of breath, difficulty breathing, or wheezing. GASTROINTESTINAL: Denies abdominal pain or distention. Denies nausea, vomiting , or diarrhea. Denies blood in vomitus, stools, or per rectum. Denies black, tarry stools. Denies constipation. GENITOURINARY: Denies difficulty urinating, painful urination, burning, frequency, blood in urine, or discharge. FEMALE GENITOURINARY: Denies vaginal bleeding, heavy or abnormal periods, irregular periods. Denies vaginal discharge or odor. MUSCULOSKELETAL: Denies back or neck pain or stiffness. Denies joint pain or swelling. SKIN: Admits to itchy rash on skin HEMATOLOGIC : Denies easy bruising or bleeding. LYMPHATIC: Denies swollen, enlarged glands. NEUROLOGICAL: Denies confusion or altered mental status. Denies passing out or loss of consciousness. Denies dizziness or lightheadedness. Denies headache. Denies weakness or paralysis or loss of use of either side. Denies problems with gait or speech. Denies sensory loss, numbness, or tingling. Denies seizures. PSYCHIATRIC: Denies anxiety or stress. Denies depression, suicidal ideation, or homicidal ideation. ALL OTHER SYSTEMS REVIEWED AND NEGATIVE. PHYSICAL EXAMINATION: GENERAL: Well-appearing, well-nourished and in no acute distress. HEAD: Atraumatic, normocephalic. EYES: Pupils equal round and reactive to light, extraocular movements intact, conjunctiva are normal. ENT: Nares patent, oropharynx clear without exudates. Moist mucous membranes. NECK: Normal range of motion, supple without lymphadenopathy LUNGS: Breath sounds clear to auscultation bilaterally and equal. No wheezes rales or rhonchi. HEART: Regular rate and rhythm without murmurs ABDOMEN: Soft, nontender, nondistended abdomen. No guarding, no rebound. No masses appreciated. Female : deferred Musculoskeletal: Normal range of motion, no pitting or edema. No cyanosis. NEUROLOGICAL: Cranial nerves grossly intact. Normal speech, normal gait. Normal sensory, motor exams PSYCH: Normal mood, normal affect. SKIN: Superficial scars on legs and arms Dictation was performed using [employer] voice recognition software Physical Exam - Vital signs Vitals: Temp Pulse Resp BP Pulse Ox 98.2 F 58 L 20 126/67 H 97 01/30/17 10:19 01/30/17 10:19 01/30/17 10:19 01/30/17 10:19 01/30/17 10:19 Course - Re-evaluation Re-evalutation: 01/30/17 16:04 Patient's presentation is extremely benign, she has absolutely no abdominal tenderness on palpation, I did speak with her regarding lab results findings, she also did request that I evaluate her for a rash that she has, it appears to be insect bites that the patient has scratch that but there is no signs of infection no cellulitic component noted 01/30/17 16:05 As a result patient was discharged home given nausea control is otherwise stable. Patient given very strict return precautions has been instructed to stop scratching herself as this may lead to cellulitis At this time vital signs are stable she looks well will be discharged back to her care facility After performing a Medical Screening Examination, I estimate there is LOW risk for ACUTE APPENDICITIS, BOWEL OBSTRUCTION, ACUTE CHOLECYSTITIS, PERFORATED DIVERTICULITIS, INCARCERATED HERNIA, PANCREATITIS, PELVIC INFLAMMATORY DISEASE, PERFORATED ULCER, ECTOPIC , or TUBO-OVARIAN ABSCESS, thus I consider the discharge disposition reasonable. Also, there is no evidence or peritonitis , sepsis, or toxicity. I have reevaluated this patient multiple times and no significant life threatening changes are noted. The patient and I have discussed the diagnosis and risks, and we agree with discharging home with close follow-up with the understanding that symptoms and presentations can change. We also discussed returning to the Emergency Department immediately if new or worsening symptoms occur. We have discussed the symptoms which are most concerning (e.g., bloody stool, fever, changing or worsening pain, vomiting) that necessitate immediate return. - Vital Signs Vital signs: Temp Pulse Resp BP Pulse Ox 98.2 F 58 L 21 H 120/69 99 01/30/17 10:19 01/30/17 10:19 01/30/17 13:28 01/30/17 13:28 01/30/17 13:28 - Laboratory Result Diagrams: 01/30/17 10:16 01/30/17 10:16 Laboratory results interpreted by me: 01/30/17 01/30/17 01/30/17 10:16 10:16 12:02 RBC 3.09 L Hgb 10.5 L Hct 30.6 L MCV 99 H MCH 34.0 H RDW 14.1 H Plt Count 143 L Seg Neutrophils % 87.6 H Lymphocytes % 8.3 L Chloride 112 H Carbon Dioxide 18 L Est GFR (Non-Af Amer) 56 L Total Protein 6.1 L Urine Protein 30 H Urine Ketones TRACE H Discharge - Discharge Clinical Impression: Abdominal pain Qualifiers: Abdominal location: generalized Qualified Code(s): R10.84 - Generalized abdominal pain Bug bite Qualifiers: Encounter type: initial encounter Qualified Code(s): W57.XXXA - Bitten or stung by nonvenomous insect and other nonvenomous arthropods, initial encounter Condition: Stable Disposition: HOME, SELF-CARE Instructions: Abdominal Pain ([facility]) Prescriptions: Metoclopramide HCl [Reglan] 10 mg PO Q6 #10 tablet Referrals: DOMINIQUE JOYA MD [Primary Care Provider] - Follow up tomorrow
[2017-01-30] MEDS ORDERED: ACETAMINOPHEN 325 MG TABLET PO ONE (12:12)
[2017-01-30 12:50] LABS: APPEARANCE,URINE CLEAR; BILIRUBIN,URINE NEGATIVE (NEGATIVE); GLUCOSE, URINE NEGATIVE (NEGATIVE); KETONES,URINE TRACE mg/dL (NEGATIVE); LEUKOCYTE ESTERASE,URINE NEGATIVE (NEGATIVE); NITRITE,URINE NEGATIVE (NEGATIVE); PROTEIN,URINE 30 mg/dL (NEGATIVE); URINE SPECIFIC GRAVITY 1.012; UROBILINOGEN,URINE NEGATIVE mg/dL (<2.0)
[2017-01-30 13:35] VITALS: BP 120/69
== END 2017-01-30 13:59 | disposition home or self-care (01) ==
LOC: ER 10:11
DX: R10.84 Generalized abdominal pain (principal); R21 Rash and other nonspecific skin eruption; R11.2 Nausea with vomiting, unspecified; R19.7 Diarrhea, unspecified; Z87.891 Personal history of nicotine dependence; W57.XXXA Bitten or stung by nonvenomous insect and other nonvenomous arthropods, initial encounter
CPT/HCPCS: 36591; 99284; 96361; 96374; 96375; 36415; 83690; 85025; 80053; 81001; A9270; J2765; J2405; J7030

== ENCOUNTER 2017-02-11 16:50 | Emergency (ER) | payer MEDICARE, MEDICAID ==
--- NOTE | 2017-02-11 17:37 | ER Document Report ---
ED Medical Screen (RME) - General Chief Complaint: Leg Pain Stated Complaint: LEG WOUND Time Seen by Provider: 02/11/17 17:34 Mode of Arrival: Wheelchair Information source: Patient TRAVEL OUTSIDE OF THE [place] IN LAST 30 DAYS: No - HPI Patient complains to provider of: leg lesions Onset: Other - pt has h/o MRSA on legs -- states she was seen in ED several weeks ago for same. States lesions on her legs are getting worse and now draining - Related Data Allergies/Adverse Reactions: codeine Allergy (Verified 02/11/17 17:11) pregabalin [From Lyrica] Allergy (Verified 02/11/17 17:11) Past Medical History - Social History Chew tobacco use (# tins/day): No Frequency of alcohol use: None Drug Abuse: None Pulmonary Medical History: Reports: Hx COPD Renal/ Medical History: Denies: Hx Peritoneal Dialysis GI Medical History: Reports: Hx Crohn's Disease, Hx Gastroesophageal Reflux Disease, Hx Colonoscopy, Hx Endoscopy Musculoskeltal Medical History: Reports Hx Arthritis, Reports Hx Musculoskeletal Deformity Skin Medical History: Reports Hx MRSA Psychiatric Medical History: Reports: Hx Depression Past Surgical History: Reports: Hx Abdominal Surgery - ostomy, Hx Cholecystectomy, Hx Hysterectomy, Hx Orthopedic Surgery - feet, Hx Rectal Surgery - removed - Immunizations Hx Diphtheria, Pertussis, Tetanus Vaccination: No Physical Exam - Vital signs Vitals: Temp Pulse Resp BP Pulse Ox 98.2 F 62 16 109/61 97 02/11/17 17:20 02/11/17 17:20 02/11/17 17:20 02/11/17 17:20 02/11/17 17:20 Course - Vital Signs Vital signs: Temp Pulse Resp BP Pulse Ox 98.2 F 62 16 109/61 97 02/11/17 17:20 02/11/17 17:20 02/11/17 17:20 02/11/17 17:20 02/11/17 17:20
[2017-02-11 19:24] LABS: ABSOLUTE EOSINOPHILS # (AUTO) 0.1 10^3/uL (0.0-0.6); ABSOLUTE LYMPHOCYTES (AUTO) 1.3 10^3/uL (0.5-4.7); ABSOLUTE MONOCYTES (AUTO) 0.4 10^3/uL (0.1-1.4); ABSOLUTE NEUT (AUTO) 6.8 10^3/uL (1.7-8.2); BASOPHILS % (AUTO) 0.4 % (0-2); EOSINOPHILS % (AUTO) 1.1 % (0-6); HEMATOCRIT 33.5 % (36.0-47.0); HEMOGLOBIN 11.3 g/dL (12.0-15.5); HGB HCT DIFFERENCE 0.4; LYMPHOCYTES % (AUTO) 14.9 % (13-45); MEAN CORPUSCULAR HEMOGLOBIN 33.4 pg (27.0-33.4); MEAN CORPUSCULAR HGB CONC 33.6 g/dL (32.0-36.0); MEAN CORPUSCULAR VOLUME 99 fl (80-97); MONOCYTES % (AUTO) 4.5 % (3-13); RED BLOOD COUNT 3.38 10^6/uL (3.72-5.28); RED CELL DISTRIBUTION WIDTH 13.5 % (11.5-14.0); SEGMENTED NEUTROPHILS % (AUTO) 79.1 % (42-78); WHITE BLOOD COUNT 8.5 10^3/uL (4.0-10.5)
[2017-02-11 19:47] LABS: ALANINE AMINOTRANSFERASE 27 U/L (9-52); ALBUMIN 3.8 g/dL (3.5-5.0); ALKALINE PHOSPHATASE 116 U/L (38-126); ANION GAP 16 (5-19); ASPARTATE AMINO TRANSFERASE 15 U/L (14-36); BILIRUBIN,DIRECT 0.2 mg/dL (0.0-0.4); BILIRUBIN,TOTAL 0.2 mg/dL (0.2-1.3); BLOOD UREA NITROGEN 22 mg/dL (7-20); CALCIUM 9.3 mg/dL (8.4-10.2); CARBON DIOXIDE 11 mmol/L (22-30); CHLORIDE 114 mmol/L (98-107); CREATININE RESULT 1.38 mg/dL (0.52-1.25); GLUCOSE 129 mg/dL (75-110); SODIUM 141.2 mmol/L (137-145); TOTAL PROTEIN 6.4 g/dL (6.3-8.2)
[2017-02-11] MEDS ORDERED: LIDOCAINE 1%/EPINEPHRINE INJ 20 ML VIAL INJ ONE (22:21)
[2017-02-11] MEDS ORDERED: SULFAMETHOXAZOLE/TRIMETHOPRIM 800-160 MG TABLET PO ONE (22:22)
--- NOTE | 2017-02-11 22:27 | ER Document Report ---
ED Skin Rash/Insect Bite/Abscs - General Chief Complaint: Leg Pain Stated Complaint: LEG WOUND Time Seen by Provider: 02/11/17 17:34 Mode of Arrival: Wheelchair Notes: The patient is a 66-year-old female who presents with several days of an abscess and erythema over bilateral shins. She has had this in the past and it grew out MRSA. She denies fevers, difficulty walking, numbness, tingling or injury. TRAVEL OUTSIDE OF THE [place] IN LAST 30 DAYS: No - Related Data Allergies/Adverse Reactions: codeine Allergy (Verified 02/11/17 17:11) pregabalin [From Lyrica] Allergy (Verified 02/11/17 17:11) Past Medical History - General Information source: Patient - Social History Smoking Status: Current Every Day Smoker Chew tobacco use (# tins/day): No Frequency of alcohol use: None Drug Abuse: None Family History: Reviewed & Not Pertinent Patient has suicidal ideation: No Patient has homicidal ideation: No Pulmonary Medical History: Reports: Hx COPD Renal/ Medical History: Denies: Hx Peritoneal Dialysis GI Medical History: Reports: Hx Crohn's Disease, Hx Gastroesophageal Reflux Disease, Hx Colonoscopy, Hx Endoscopy Musculoskeltal Medical History: Reports Hx Arthritis, Reports Hx Musculoskeletal Deformity Skin Medical History: Reports Hx MRSA Psychiatric Medical History: Reports: Hx Depression Past Surgical History: Reports: Hx Abdominal Surgery - ostomy, Hx Cholecystectomy, Hx Hysterectomy, Hx Orthopedic Surgery - feet, Hx Rectal Surgery - removed - Immunizations Hx Diphtheria, Pertussis, Tetanus Vaccination: No Hx Pneumococcal Vaccination: 12/23/15 Review of Systems - Review of Systems Notes: REVIEW OF SYSTEMS: CONSTITUTIONAL: -fevers, -chills EENT: -eye pain, -difficulty swallowing, -nasal congestion CARDIOVASCULAR:-chest pain, -syncope. RESPIRATORY: -cough, -SOB GASTROINTESTINAL: -abdominal pain, - nausea, -vomiting, -diarrhea GENITOURINARY: -dysuria, -hematuria MUSCULOSKELETAL: -back pain, -neck pain SKIN: +B/L contreras abscesses HEMATOLOGIC: -easy bruising or bleeding. LYMPHATIC: -swollen, enlarged glands. NEUROLOGICAL: -altered mental status or loss of consciousness, -headache, - neurologic symptoms PSYCHIATRIC: -anxiety, -depression. ALL OTHER SYSTEMS REVIEWED AND NEGATIVE. Physical Exam - Vital signs Vitals: Temp Pulse Resp BP Pulse Ox 98.2 F 62 16 109/61 97 02/11/17 17:20 02/11/17 17:20 02/11/17 17:20 02/11/17 17:20 02/11/17 17:20 - Notes Notes: PHYSICAL EXAMINATION: GENERAL: Well-appearing, well-nourished and in no acute distress. HEAD: Atraumatic, normocephalic. EYES: Pupils equal round and reactive to light, extraocular movements intact, sclera anicteric, conjunctiva are normal. ENT: nares patent, oropharynx clear without exudates. Moist mucous membranes. NECK: Normal range of motion, supple without lymphadenopathy LUNGS: Breath sounds clear to auscultation bilaterally and equal. No wheezes rales or rhonchi. HEART: Regular rate and rhythm without murmurs ABDOMEN: Soft, nontender, normoactive bowel sounds. No guarding, no rebound. No masses appreciated. EXTREMITIES: Normal range of motion, no pitting or edema. No cyanosis. NEUROLOGICAL: Cranial nerves grossly intact. Normal speech, normal gait. Normal sensory and motor exams. PSYCH: Normal mood, normal affect. SKIN: 2 cm abscess over left anterior contreras with surrounding erythema. 0.5 cm abscess over right anterior contreras with surrounding erythema. Course - Re-evaluation Re-evalutation: Patient with 2 abscesses over bilateral shins with surrounding cellulitis. Drained the larger abscess on the left contreras with some purulent drainage. Will send home on Bactrim to help cover MRSA, since she has a history. Will have her follow-up for further evaluation and treatment with her primary care physician. - Vital Signs Vital signs: Temp Pulse Resp BP Pulse Ox 98 F 68 16 116/57 L 98 02/11/17 23:00 02/11/17 23:00 02/11/17 23:00 02/11/17 23:00 02/11/17 23:00 - Laboratory Result Diagrams: 02/11/17 19:00 02/11/17 19:00 Laboratory results interpreted by me: 02/11/17 02/11/17 19:00 19:00 RBC 3.38 L Hgb 11.3 L Hct 33.5 L MCV 99 H Seg Neutrophils % 79.1 H Chloride 114 H Carbon Dioxide 11 L BUN 22 H Creatinine 1.38 H Est GFR ( Amer) 47 L Est GFR (Non-Af Amer) 38 L Glucose 129 H Procedures - Incision and Drainage Left Anterior Leg Type: Simple Anesthetic type: 1% Lidocaine w/epi mL's of anesthetic: 3 Blade size: 11 I&D procedure: Betadine prep applied, Sterile dressing applied Incision Method: Incision made by scalpel Amount/type of drainage: Purulent drainage, small amount Discharge - Discharge Clinical Impression: Leg abscess Condition: Stable Disposition: HOME-ASSISTED LIVING Additional Instructions: ABSCESS: You have an abscess (boil). This a pus-forming infection, usually due to staph. Some boils may be left to drain on their own, but most require lancing. From the time the tender lump first appears, it may be three or four days before the abscess is ready to jordy. Local heat and rest help at this stage of treatment. An antibiotic may prevent spread of the infection. Once the abscess is opened, packing may be placed into it. This is done so pus is not sealed inside by premature closure of the cavity. The packing will be removed at your follow-up visit or you may be advised to remove it yourself at home. Sometimes this packing must be replaced a few times during healing. The wound will heal with surprisingly little scar. Depending on the size and location of an abscess, healing can take one to four weeks. You may shower and wash the area around the incision site two or three times a day. Antibiotics may be prescribed, but are usually not necessary after an abscess has been drained. If you develop fever, chills, worsening pain, or increasing swelling in the area, call the doctor or return immediately. POST INCISION AND DRAINAGE: You have had an incision made to allow drainage of an abscess. The incision must remain open so that pus and debris can drain from the wound. If the abscess cavity is large, packing is placed. This keeps the tissues from collapsing and trapping pus inside, while the body shrinks the cavity. The packing may need to be replaced every day or two. The physician will instruct you on the packing. Keep a bulky dressing over the area. Replace it if it becomes saturated with blood or pus. Do not disturb the packing (if present). You may shower and cleanse the area with gentle soap and warm water two or three times a day. Local warmth may be soothing, and may promote faster healing. Return if you develop high fever or chills, or if you note spreading redness, increasing swelling, or increasing tenderness. MRSA CELLULITIS: You have an infection of your skin and underlying soft tissues called cellulitis. This is due to bacteria, which can enter through any break in the skin, or even through an irritated hair follicle. Untreated, cellulitis will usually worsen and may form an abscess which requires draining. Although many bacterial organisms can cause cellulitis and abscess formations, the most likely bacteria is Methicillin-Resistant Staph Aureus, or MRSA for short. Antibiotics are required. Usually, warm packs or warm soaks, and elevation of the infected area are recommended. You should start getting better within 24 to 36 hours. Most infections respond quickly to the right medication. Follow-up care is important, however, to check for abscess (boil) formation, unsuspected foreign body, or resistant infection. If you develop fever, chills, or if the area of infection is becoming rapidly more swollen or painful, call the doctor at once. TRIMETHOPRIM-SULFA: You have been given a prescription for trimethoprim-sulfa (TMS, Septra, Bactrim). This is a combination antibiotic of the sulfa class, often used for urinary tract infections, middle ear infections, bronchitis, shigella intestinal infection, and Pneumocystis pneumonia. TMS is usually well-tolerated. Occasional side effects include nausea and decreased appetite. Septra is not recommended for infants less than two months of age. Do not take this medication if you have experienced severe side effects or allergy to sulfa medicine. You should stop this medicine at once and contact your physician if you develop any rash, joint pain, shortness of breath, bruising, or jaundice ( yellow color in the skin), or if you develop any other new or unusual symptoms. FOLLOW-UP CARE: Most simple abscesses will not require a follow up visit. If you had packing placed in the abscess, remove it as instructed by the physician. If you have been referred to a physician for follow-up care, call the physicians office for an appointment as you were instructed or within the next two days. If you experience worsening or a significant change in your symptoms, return to the Emergency Department at any time for re-evaluation. Prescriptions: Sulfamethoxazole/Trimethoprim [Bactrim Ds Tablet] 1 each PO Q12H 10 Days tablet Referrals: DOMINIQUE JOYA MD [Primary Care Provider] - Follow up as needed
[2017-02-11 23:28] VITALS: BP 116/57
== END 2017-02-11 23:00 | disposition home health service (06) ==
LOC: ER 16:50
DX: L02.416 Cutaneous abscess of left lower limb (principal); L02.415 Cutaneous abscess of right lower limb; L03.116 Cellulitis of left lower limb; L03.115 Cellulitis of right lower limb; J44.9 Chronic obstructive pulmonary disease, unspecified; F17.200 Nicotine dependence, unspecified, uncomplicated; Z86.14 Personal history of Methicillin resistant Staphylococcus aureus infection; Z88.5 Allergy status to narcotic agent; Z88.6 Allergy status to analgesic agent
CPT/HCPCS: 99283; 36415; 87070; 87205; 85025; 87077; 80053; 87186; 10060; J3490

== ENCOUNTER 2017-03-13 12:48 | Emergency (ER) | payer MEDICARE, MEDICAID ==
[2017-03-13 13:25] VITALS: BP 116/80
--- NOTE | 2017-03-13 13:58 | ER Document Report ---
ED General - General Chief Complaint: Sore Throat Stated Complaint: SORE THROAT,COUGH,WEAKNESS Time Seen by Provider: 03/13/17 13:57 Mode of Arrival: Ambulatory Information source: Patient TRAVEL OUTSIDE OF THE [place] IN LAST 30 DAYS: No - HPI Onset: Other - 3 DAYS Onset/Duration: Gradual Quality of pain: Achy Severity: Moderate Associated symptoms: Chills, Productive cough, Headache. denies: Chest pain Exacerbated by: Denies Relieved by: Denies Similar symptoms previously: Yes - NOT RECENT - Related Data Allergies/Adverse Reactions: codeine Allergy (Verified 03/13/17 13:24) naproxen Allergy (Verified 03/13/17 13:24) pregabalin [From Lyrica] Allergy (Verified 03/13/17 13:24) Past Medical History - General Information source: Patient - Social History Smoking Status: Current Some Day Smoker Cigarette use (# per day): Yes Chew tobacco use (# tins/day): No Frequency of alcohol use: None Drug Abuse: None Lives with: Family Family History: Reviewed & Not Pertinent Patient has suicidal ideation: No Patient has homicidal ideation: No - Past Medical History Cardiac Medical History: Reports: None Pulmonary Medical History: Reports: Hx COPD EENT Medical History: Reports: None Neurological Medical History: Reports: None Endocrine Medical History: Reports: None Renal/ Medical History: Reports: None. Denies: Hx Peritoneal Dialysis Malignancy Medical History: Reports: None GI Medical History: Reports: Hx Crohn's Disease, Hx Gastroesophageal Reflux Disease, Hx Colonoscopy, Hx Endoscopy Musculoskeltal Medical History: Reports Hx Arthritis, Reports Hx Musculoskeletal Deformity Skin Medical History: Reports Hx MRSA Psychiatric Medical History: Reports: Hx Depression Past Surgical History: Reports: Hx Abdominal Surgery - ileostomy, Hx Cholecystectomy, Hx Hysterectomy, Hx Orthopedic Surgery - feet, Hx Rectal Surgery - removed - Immunizations Hx Diphtheria, Pertussis, Tetanus Vaccination: No Hx Pneumococcal Vaccination: 12/23/15 Review of Systems - Review of Systems Constitutional: Chills, Weakness, Weight loss EENT: Throat pain, Difficulty swallowing Cardiovascular: No symptoms reported Respiratory: Cough Gastrointestinal: denies: Diarrhea, Nausea, Vomiting, Poor appetite Genitourinary: No symptoms reported Female Genitourinary: No symptoms reported Musculoskeletal: No symptoms reported Skin: No symptoms reported Neurological/Psychological: No symptoms reported Physical Exam - Vital signs Vitals: Temp Pulse Resp BP Pulse Ox 98.0 F 87 16 116/80 100 03/13/17 12:55 03/13/17 12:55 03/13/17 12:55 03/13/17 12:55 03/13/17 12:55 Interpretation: Normal. No: Tachycardic, Tachypneic, Febrile - General General appearance: Appears well, Alert In distress: None - HEENT Head: Normocephalic Eyes: Normal Conjunctiva: Normal Ears: Normal Nasal: Normal Mouth/Lips: Normal Mucous membranes: Normal Pharynx: Normal Neck: Normal - Respiratory Respiratory status: No respiratory distress Breath sounds: Normal - Cardiovascular Rhythm: Regular - Abdominal Inspection: Normal - NORMAL OSTOMY OUTPUT Distension: No distension Bowel sounds: Normal - Extremities General upper extremity: Normal inspection General lower extremity: Normal inspection - Neurological Neuro grossly intact: Yes Cognition: Normal Orientation: AAOx4 - Psychological Associated symptoms: Normal affect, Normal mood - Skin Skin Temperature: Warm Skin Moisture: Dry Skin Color: Normal Skin Turgor: Elastic Course - Vital Signs Vital signs: Temp Pulse Resp BP Pulse Ox 98.0 F 87 16 116/80 100 03/13/17 12:55 03/13/17 12:55 03/13/17 12:55 03/13/17 12:55 03/13/17 12:55 - Laboratory Result Diagrams: 03/13/17 17:52 03/13/17 17:52 Laboratory results interpreted by me: 03/13/17 03/13/17 17:52 17:52 MCV 100 H MCH 33.5 H RDW 14.5 H Potassium 3.4 L Carbon Dioxide 12 L BUN 24 H Creatinine 2.26 H Est GFR ( Amer) 26 L Est GFR (Non-Af Amer) 22 L Alkaline Phosphatase 165 H Total Protein 8.3 H Discharge - Discharge Clinical Impression: Hypokalemia, Ileostomy present Pharyngitis Qualifiers: Pharyngitis/tonsillitis etiology: unspecified etiology Qualified Code(s): J02.9 - Acute pharyngitis, unspecified Chronic renal insufficiency Qualifiers: Chronic kidney disease stage: stage 2 (mild) Qualified Code(s): N18.2 - Chronic kidney disease, stage 2 (mild) Condition: Stable Disposition: HOME, SELF-CARE Instructions: Penicillin V K ([facility]), Sore Throat ([facility]), Hypokalemia ([facility]) Additional Instructions: INCREASE YOUR POTASSIUM TO DOUBLE YOUR NORMAL DOSE FOR THE NEXT SEVERAL DAYS. TAKE PENICILLIN VK DIRECTED. USE MAGIC MOUTHWASH DIRECTED TO HELP WITH THROAT PAIN. TAKE TYLENOL FOR FEVER CONTROL AND ADDITIONAL PAIN RELIEF. FOLLOW UP WITH OUR PRIMARY CARE PROVIDER, CALL TOMORROW A.M. FOR APPOINTMENT. Prescriptions: Nystatin/Dexameth/Diphen [Magic Mouthwash ([facility] Formula) Susp] 5 ml PO Q2H PRN # 240 ml PRN Reason: MOUTH OR THROAT PAIN Penicillin V Potassium 500 mg PO QID #400 ml Referrals: DOMINIQUE JOYA MD [Primary Care Provider] - Follow up in 3-5 days
[2017-03-13 16:04] LABS: A TYPE INFLUENZA AG NEGATIVE (NEGATIVE)
[2017-03-13 16:05] LABS: B INFLUENZA AG NEGATIVE (NEGATIVE)
[2017-03-13 18:10] LABS: ABSOLUTE EOSINOPHILS # (AUTO) 0.2 10^3/uL (0.0-0.6); ABSOLUTE LYMPHOCYTES (AUTO) 1.5 10^3/uL (0.5-4.7); ABSOLUTE MONOCYTES (AUTO) 0.8 10^3/uL (0.1-1.4); ABSOLUTE NEUT (AUTO) 7.8 10^3/uL (1.7-8.2); BASOPHILS % (AUTO) 0.3 % (0-2); EOSINOPHILS % (AUTO) 1.6 % (0-6); HEMATOCRIT 43.3 % (36.0-47.0); HEMOGLOBIN 14.5 g/dL (12.0-15.5); LYMPHOCYTES % (AUTO) 14.6 % (13-45); MEAN CORPUSCULAR HEMOGLOBIN 33.5 pg (27.0-33.4); MEAN CORPUSCULAR HGB CONC 33.5 g/dL (32.0-36.0); MEAN CORPUSCULAR VOLUME 100 fl (80-97); PLATELET COUNT 235 10^3/uL (150-450); RED BLOOD COUNT 4.32 10^6/uL (3.72-5.28); RED CELL DISTRIBUTION WIDTH 14.5 % (11.5-14.0); SEGMENTED NEUTROPHILS % (AUTO) 75.5 % (42-78); TOTAL CELLS COUNTED % (AUTO) 100 %; WHITE BLOOD COUNT 10.3 10^3/uL (4.0-10.5)
[2017-03-13 18:20] LABS: ALANINE AMINOTRANSFERASE 20 U/L (9-52); ALBUMIN 4.5 g/dL (3.5-5.0); ALKALINE PHOSPHATASE 165 U/L (38-126); ANION GAP 19 (5-19); ASPARTATE AMINO TRANSFERASE 22 U/L (14-36); BILIRUBIN,DIRECT 0.2 mg/dL (0.0-0.4); BILIRUBIN,TOTAL 0.2 mg/dL (0.2-1.3); BLOOD UREA NITROGEN 24 mg/dL (7-20); CARBON DIOXIDE 12 mmol/L (22-30); CHLORIDE 107 mmol/L (98-107); GLUCOSE 90 mg/dL (75-110); POTASSIUM 3.4 mmol/L (3.6-5.0); SODIUM 137.7 mmol/L (137-145); TOTAL PROTEIN 8.3 g/dL (6.3-8.2)
== END 2017-03-13 19:30 | disposition home or self-care (01) ==
LOC: ER 12:48
DX: J02.9 Acute pharyngitis, unspecified (principal); N18.2 Chronic kidney disease, stage 2 (mild); E87.6 Hypokalemia; R05 Cough; R51 Headache; R68.83 Chills (without fever); R13.10 Dysphagia, unspecified; R63.4 Abnormal weight loss; Z68.1 Body mass index [BMI] 19.9 or less, adult; R53.1 Weakness; J44.9 Chronic obstructive pulmonary disease, unspecified; F17.210 Nicotine dependence, cigarettes, uncomplicated; Z93.2 Ileostomy status; Z88.5 Allergy status to narcotic agent; Z88.6 Allergy status to analgesic agent
CPT/HCPCS: 36415; 80053; 85025; 87070; 87077; 87804; 87880; 99283

== ENCOUNTER 2017-03-15 14:31 | Inpatient (IN) | payer MEDICARE, MEDICAID ==
[2017-03-15] MEDS ORDERED: NORMAL SALINE 1000 ML 1,000 ML IV ONE ×2 (15:09→18:03)
--- NOTE | 2017-03-15 15:15 | ER Document Report ---
ED Dizziness/Weakness - General Chief Complaint: Altered Mental Status Stated Complaint: WEAKNESS Time Seen by Provider: 03/15/17 15:01 Mode of Arrival: Medic Information source: Patient, Transfer Record, Emergency Med Personnel TRAVEL OUTSIDE OF THE [place] IN LAST 30 DAYS: No - HPI Patient complains to provider of: Weakness Onset: Yesterday - LAST P.M. Onset/Duration: Sudden Quality of pain: Achy - "HURTS ALL OVER," IN MUSCLES Severity: Moderate Context: denies: Chronic dizziness, Trauma, Vertigo Associated symptoms: Diarrhea - INCREASED OSTOMY OUTPUT, Other - COLLAPSED WHILE ATTEMPTING TO WALK. Exacerbated by: Other - ANY EXERTION, WALKING - Related Data Allergies/Adverse Reactions: codeine Allergy (Verified 03/15/17 15:38) naproxen Allergy (Verified 03/15/17 15:38) pregabalin [From Lyrica] Allergy (Verified 03/15/17 15:38) Past Medical History - General Information source: Patient, Transfer Record - Social History Smoking Status: Unknown if Ever Smoked Cigarette use (# per day): No Chew tobacco use (# tins/day): No Frequency of alcohol use: None Drug Abuse: None Lives with: [facility] Family History: Reviewed & Not Pertinent Patient has suicidal ideation: No Patient has homicidal ideation: No - Past Medical History Cardiac Medical History: Reports: None Pulmonary Medical History: Reports: Hx COPD Renal/ Medical History: Denies: Hx Peritoneal Dialysis GI Medical History: Reports: Hx Crohn's Disease, Hx Gastroesophageal Reflux Disease, Hx Colonoscopy, Hx Endoscopy Musculoskeltal Medical History: Reports Hx Arthritis, Reports Hx Musculoskeletal Deformity Skin Medical History: Reports Hx MRSA Psychiatric Medical History: Reports: Hx Depression Past Surgical History: Reports: Hx Abdominal Surgery - ileostomy, Hx Cholecystectomy, Hx Hysterectomy, Hx Orthopedic Surgery - feet, Hx Rectal Surgery - removed - Immunizations Hx Diphtheria, Pertussis, Tetanus Vaccination: No Hx Pneumococcal Vaccination: 12/23/15 Review of Systems - Review of Systems Constitutional: Weakness EENT: No symptoms reported Cardiovascular: No symptoms reported Respiratory: No symptoms reported Gastrointestinal: No symptoms reported Genitourinary: No symptoms reported Female Genitourinary: Post menopausal Musculoskeletal: See HPI Skin: No symptoms reported Neurological/Psychological: See HPI Physical Exam - Vital signs Vitals: Pulse Ox 98 03/15/17 14:50 - General General appearance: Appears well, Alert In distress: None - HEENT Head: Normocephalic Eyes: Normal. No: Pale conjunctiva Conjunctiva: Normal Ears: Normal Nasal: Normal Mouth/Lips: Normal Mucous membranes: Dry Pharynx: Normal Neck: Normal - Respiratory Respiratory status: No respiratory distress Breath sounds: Normal - Cardiovascular Rhythm: Regular Heart sounds: Normal auscultation Murmur: No - Abdominal Inspection: Normal Distension: No distension Bowel sounds: Normal Notes: OSTOMY FUNCTIONING WELL - Extremities General upper extremity: Normal inspection General lower extremity: Normal inspection - Neurological Neuro grossly intact: Yes Cognition: Normal Orientation: AAOx4 - Psychological Associated symptoms: Normal affect, Normal mood - Skin Skin Temperature: Warm Skin Moisture: Dry Skin Color: Normal Skin Turgor: Elastic Course - Re-evaluation Re-evalutation: 03/15/17 18:12 Patient complains of pain. Pain medication ordered. Diagnosis and treatment plan discussed with patient, and she is agreeable. - Vital Signs Vital signs: Temp Pulse Resp BP Pulse Ox 86 17 135/72 H 99 03/15/17 15:36 03/15/17 17:01 03/15/17 17:01 03/15/17 16:01 - Laboratory Result Diagrams: 03/15/17 16:22 03/15/17 16:22 Laboratory results interpreted by me: 03/15/17 03/15/17 16:22 16:22 WBC 15.6 H MCV 99 H RDW 14.3 H Seg Neuts % (Manual) 85 H Lymphocytes % (Manual) 6 L Monocytes % (Manual) 2 L Abs Neuts (Manual) 14.0 H Sodium 131.1 L Potassium 5.4 H Carbon Dioxide 7 L* Anion Gap 22 H BUN 43 H Creatinine 3.67 H Est GFR ( Amer) 15 L Est GFR (Non-Af Amer) 12 L AST 86 H ALT 79 H Alkaline Phosphatase 186 H Creatine Kinase 156 H Lipase 64442.1 H - EKG Interpretation by Me EKG shows normal: Sinus rhythm, [place], Intervals. abnormal: QRS Complexes, ST-T Waves - BORDERLINE INF. ST ELEV. Rate: Normal Rhythm: NSR Voltage: Consistant with LVH Discharge - Discharge Clinical Impression: Dehydration, Ileostomy present Pancreatitis Qualifiers: Chronicity: acute Pancreatitis type: unspecified pancreatitis type Acute pancreatitis complication: unspecified Qualified Code(s): K85.90 - Acute pancreatitis without necrosis or infection, unspecified Chronic renal insufficiency Qualifiers: Chronic kidney disease stage: unspecified stage Qualified Code(s): N18.9 - Chronic kidney disease, unspecified Condition: Fair Disposition: ADMITTED INPATIENT Admitting Provider: [facility] Admitted: Telemetry Referrals: DOMINIQUE JOYA MD [Primary Care Provider] - Follow up as needed
--- NOTE | 2017-03-15 15:42 | RADIOLOGY REPORT (SQ) ---
EXAM DESCRIPTION: CHEST SINGLE VIEW COMPLETED DATE/TIME: 03/15/2017 3:24 pm REASON FOR STUDY: WEAKNESS COMPARISON: Two-view chest 12/22/2016 AP chest 03/23/2016 EXAM PARAMETERS: NUMBER OF VIEWS: One view. TECHNIQUE: Single frontal radiographic view of the chest acquired. RADIATION DOSE: NA LIMITATIONS: None. FINDINGS: LUNGS AND PLEURA: No opacities, masses or pneumothorax. No pleural effusion. MEDIASTINUM AND HILAR STRUCTURES: No masses. Contour normal. HEART AND VASCULAR STRUCTURES: Heart normal in size. Normal vasculature. BONES: No acute findings. HARDWARE: Right-sided permanent central line tip superior vena cava. OTHER: No other significant finding. IMPRESSION: NO ACUTE RADIOGRAPHIC FINDING IN THE CHEST. TECHNICAL DOCUMENTATION: JOB ID: [id number] [employer]- All Rights Reserved
[2017-03-15 16:53] LABS: HEMATOCRIT 44.7 % (36.0-47.0); HEMOGLOBIN 14.9 g/dL (12.0-15.5); MEAN CORPUSCULAR HEMOGLOBIN 33.1 pg (27.0-33.4); MEAN CORPUSCULAR HGB CONC 33.3 g/dL (32.0-36.0); MEAN CORPUSCULAR VOLUME 99 fl (80-97); PLATELET COUNT 219 10^3/uL (150-450); RED CELL DISTRIBUTION WIDTH 14.3 % (11.5-14.0); WHITE BLOOD COUNT 15.6 10^3/uL (4.0-10.5)
[2017-03-15 17:05] LABS: ALANINE AMINOTRANSFERASE 79 U/L (9-52); ALBUMIN 4.5 g/dL (3.5-5.0); ALKALINE PHOSPHATASE 186 U/L (38-126); ASPARTATE AMINO TRANSFERASE 86 U/L (14-36); BILIRUBIN,DIRECT 0.3 mg/dL (0.0-0.4); BILIRUBIN,TOTAL 0.3 mg/dL (0.2-1.3); BLOOD UREA NITROGEN 43 mg/dL (7-20); CALCIUM 8.9 mg/dL (8.4-10.2); CREATINE KINASE 156 U/L (30-135); GLUCOSE 104 mg/dL (75-110); MAGNESIUM 1.8 mg/dL (1.6-2.3); TOTAL PROTEIN 7.8 g/dL (6.3-8.2)
[2017-03-15 17:13] LABS: ABSOLUTE LYMPHOCYTES# (MANUAL) 0.9 10^3/uL (0.5-4.7); ABSOLUTE MONOCYTES # (MANUAL) 0.3 10^3/uL (0.1-1.4); BAND NEUTROPHILS % (MANUAL) 5 % (3-5); BASOPHILS % (MANUAL) 1 % (0-2); EOSINOPHILS % (MANUAL) 1 % (0-6); LYMPHOCYTES % (MANUAL) 6 % (13-45); MONOCYTES % (MANUAL) 2 % (3-13); SEGMENTED NEUTROPHILS % (MAN) 85 % (42-78); TOTAL CELLS COUNTED 100
[2017-03-15 17:15] LABS: ANISOCYTOSIS SLIGHT; CREATINE KINASE MB 2.66 ng/mL (<4.55); PLATELET COMMENT ADEQUATE; TOXIC VACUOLATION PRESENT
[2017-03-15 17:16] LABS: TROPONIN I < 0.012 ng/mL
[2017-03-15 17:23] LABS: CHLORIDE 102 mmol/L (98-107); POTASSIUM 5.4 mmol/L (3.6-5.0); SODIUM 131.1 mmol/L (137-145)
[2017-03-15 17:43] LABS: ANION GAP 22 (5-19); LIPASE 20947.1 U/L (23-300)
[2017-03-15 17:45] LABS: CARBON DIOXIDE 7 mmol/L (22-30)
[2017-03-15] MEDS ORDERED: ONDANSETRON HCL INJ/PF 4 MG/2 ML SDV IV ONE (18:06)
[2017-03-15] MEDS ORDERED: HYDROMORPHONE HCL INJ/PF 2 MG/ML AMPULE IV ONE (18:06)
--- NOTE | 2017-03-15 19:07 | EKG REPORT ---
SEVERITY:- ABNORMAL ECG - SINUS RHYTHM PROBABLE LEFT VENTRICULAR HYPERTROPHY BORDERLINE ST ELEVATION, INFERIOR LEADS : Confirmed by: Darron Carranza 15-Mar-2017 19:07:10
[2017-03-15] MEDS ORDERED: DEXTROSE 40% GEL 15 GM TUBE PO PRN ×2 (21:59)
[2017-03-15] MEDS ORDERED: GLUCAGON,HUMAN RECOMB 1 MG INJ SUBCUT PRN (21:59)
[2017-03-15] MEDS ORDERED: DEXTROSE 50%-WATER 25 GM/50 ML DISP.SYRIN IV PRN ×2 (21:59)
[2017-03-15 23:05] LABS: INTERNATIONAL RATION (INR) 1.01; PARTIAL THROMBOPLASTIN TIME 28.4 SEC (23.5-35.8)
[2017-03-15 23:44] LABS: APPEARANCE,URINE CLOUDY; BILIRUBIN,URINE NEGATIVE (NEGATIVE); COLOR,URINE YELLOW; GLUCOSE, URINE NEGATIVE (NEGATIVE); KETONES,URINE NEGATIVE (NEGATIVE); LEUKOCYTE ESTERASE,URINE SMALL (NEGATIVE); NITRITE,URINE NEGATIVE (NEGATIVE); PROTEIN,URINE >=500 mg/dL (NEGATIVE); URINE SPECIFIC GRAVITY 1.018; UROBILINOGEN,URINE NEGATIVE mg/dL (<2.0)
[2017-03-15 23:55] LABS: URINE AMPHETAMINES SCREEN NEGATIVE; URINE BARBITURATES SCREEN NEGATIVE; URINE BENZODIAZEPINES SCREEN UNCONFIRMED POSITIVE; URINE COCAINE SCREEN NEGATIVE; URINE MARIJUANA (THC) SCREEN NEGATIVE; URINE METHADONE SCREEN NEGATIVE; URINE PHENCYCLIDINE SCREEN NEGATIVE
[2017-03-16] MEDS: HYDROMORPHONE HCL INJ/PF 2 MG/ML AMPULE IV PRN ×6 (00:13→22:41)
[2017-03-16] MEDS: HEPARIN SOD (PORCINE) 5,000 UNIT/ML 1 ML SYRINGE SUBCUT SCH ×4 (00:14→22:01)
[2017-03-16 10:12] LABS: ABSOLUTE EOSINOPHILS # (AUTO) 0.1 10^3/uL (0.0-0.6); ABSOLUTE LYMPHOCYTES (AUTO) 1.1 10^3/uL (0.5-4.7); ABSOLUTE MONOCYTES (AUTO) 0.8 10^3/uL (0.1-1.4); BASOPHILS % (AUTO) 0.4 % (0-2); EOSINOPHILS % (AUTO) 0.7 % (0-6); HEMATOCRIT 37.2 % (36.0-47.0); LYMPHOCYTES % (AUTO) 11.1 % (13-45); MEAN CORPUSCULAR HEMOGLOBIN 32.9 pg (27.0-33.4); MEAN CORPUSCULAR HGB CONC 33.4 g/dL (32.0-36.0); MEAN CORPUSCULAR VOLUME 99 fl (80-97); MONOCYTES % (AUTO) 7.9 % (3-13); PLATELET COUNT 140 10^3/uL (150-450); RED BLOOD COUNT 3.78 10^6/uL (3.72-5.28); RED CELL DISTRIBUTION WIDTH 14.4 % (11.5-14.0); SEGMENTED NEUTROPHILS % (AUTO) 79.9 % (42-78); TOTAL CELLS COUNTED % (AUTO) 100 %
[2017-03-16 10:24] LABS: HEMOGLOBIN 12.4 g/dL (12.0-15.5)
[2017-03-16 11:14] LABS: ALANINE AMINOTRANSFERASE 49 U/L (9-52); ALBUMIN 3.4 g/dL (3.5-5.0); ALKALINE PHOSPHATASE 129 U/L (38-126); ANION GAP 13 (5-19); ASPARTATE AMINO TRANSFERASE 44 U/L (14-36); BILIRUBIN,DIRECT 0.3 mg/dL (0.0-0.4); BILIRUBIN,TOTAL 0.3 mg/dL (0.2-1.3); BLOOD UREA NITROGEN 42 mg/dL (7-20); CALCIUM 7.7 mg/dL (8.4-10.2); CARBON DIOXIDE 11 mmol/L (22-30); CHLORIDE 109 mmol/L (98-107); GLUCOSE 82 mg/dL (75-110); SODIUM 133.4 mmol/L (137-145); TOTAL PROTEIN 6.3 g/dL (6.3-8.2)
[2017-03-16 11:29] LABS: TROPONIN I < 0.012 ng/mL
[2017-03-16 11:34] LABS: POTASSIUM 3.4 mmol/L (3.6-5.0)
--- NOTE | 2017-03-16 12:23 | PDOC H&P ---
History of Present Illness Admission Date/PCP: 03/15/17 19:02 DOMINIQUE JOYA MD History of Present Illness: DONALD ALBRIGHT is a 66 year old female, she has a history of total colectomy with ileostomy bag, resident of assisted living facility at [facility] , she came to the emergency room for evaluation of generalized body weakness, generalized body aches and pain, abdominal pain and lethargy. She was evaluated in the emergency room, the serum lipase was 20,947 that was also associated elevated serum creatinine of 3.67 43 BUN bicarbonate was 7 there was associated high output ileostomy status. She is status post cholecystectomy, there is no history of alcohol abuse Past Medical History Cardiac Medical History: Reports: None Pulmonary Medical History: Reports: Chronic Obstructive Pulmonary Disease (COPD) GI Medical History: Reports: Crohn's Disease, Gastroesophageal Reflux Disease Musculoskeltal Medical History: Reports: Arthritis Psychiatric Medical History: Reports: Depression Past Surgical History Past Surgical History: Reports: Cholecystectomy, Colostomy, Hysterectomy, Orthopedic Surgery - feet, Other - Total colectomy Social History Lives with: Residential - [facility] Smoking Status: Current Every Day Smoker Frequency of Alcohol Use: None Hx Recreational Drug Use: No Drugs: None Hx Prescription Drug Abuse: No Family History Family History: Reviewed & Not Pertinent Parental Family History Reviewed: Yes Children Family History Reviewed: Yes Sibling(s) Family History Reviewed.: Yes Medication/Allergy Home Medications: Acetaminophen [Tylenol Extra Strength 500 mg Tablet] 1 tab PO Q4HP PRN 03/15/17 Albuterol Sulfate [Ventolin Hfa] 2 puff IH Q6HP PRN 03/15/17 Alprazolam [Xanax] 1 mg PO Q8HP PRN 03/15/17 Cyanocobalamin (Vitamin B-12) [Vitamin B-12 Inj 1000 Mcg/1 ml Vial] 1,000 mcg IM .MONTHLY 03/15/17 Dicyclomine HCl [Bentyl 20 mg Tablet] 20 mg PO QID 03/15/17 Diphenoxylate HCl/Atrop Sulf [Lomotil 2.5 mg Tablet] 1 tab PO Q4HWA 03/15/17 Ergocalciferol (Vitamin D2) [Vitamin D2] 50,000 unit PO TH@1000 03/15/17 Guaifenesin [Tussin] 10 ml PO Q6HP PRN 03/15/17 Lipase/Protease/Amylase [Creon Dr 12,000 Units Capsule] 1 each PO Q8 03/15/17 Mag Hydrox/Al Hydrox/Simeth [Maalox Suspension] 30 ml PO Q6HP PRN 03/15/17 Ondansetron [Zofran Odt 4 mg Tablet] 1 tab PO Q8HP PRN 03/15/17 Penicillin V Potassium [Penicillin Vk 250 mg/5Ml Susp 100 ml] 10 ml PO QID 03/15 Potassium Chloride [Kaon-Cl 20 Meq/15 Ml Udcup] 20 meq PO BID 03/15/17 RX: Omeprazole 40 mg PO DAILY 03/15/17 Sennosides [Senokotxtra] 34.4 mg PO Q12 03/15/17 Trazodone HCl [Desyrel 50 mg Tablet] 25 mg PO QHS 03/15/17 Venlafaxine HCl [Effexor 75 mg Tablet] 75 mg PO Q12 03/15/17 Allergies/Adverse Reactions: codeine Allergy (Verified 03/15/17 15:38) naproxen Allergy (Verified 03/15/17 15:38) pregabalin [From Lyrica] Allergy (Verified 03/15/17 15:38) Review of Systems Constitutional: PRESENT: headache(s) Eyes: ABSENT: visual disturbances Ears: ABSENT: hearing changes Cardiovascular: ABSENT: chest pain, dyspnea on exertion, edema, orthropnea, palpitations Respiratory: ABSENT: cough, hemoptysis Gastrointestinal: ABSENT: abdominal pain, constipation, diarrhea, hematemesis, hematochezia, nausea, vomiting Genitourinary: ABSENT: dysuria, hematuria Musculoskeletal: PRESENT: back pain, deformity Integumentary: ABSENT: rash, wounds Neurological: ABSENT: abnormal gait, abnormal speech, confusion, dizziness, focal weakness, syncope Psychiatric: ABSENT: anxiety, depression, homidical ideation, suicidal ideation Endocrine: ABSENT: cold intolerance, heat intolerance, menstrual abnormalities, polydipsia, polyuria Hematologic/Lymphatic: ABSENT: easy bleeding, easy bruising, lymphadenopathy Physical Exam Vital Signs: Temp Pulse Resp BP Pulse Ox 86 14 122/56 L 100 03/15/17 15:36 03/16/17 11:00 03/16/17 08:32 03/16/17 06:01 Intake & Output 03/15/17 03/16/17 03/17/17 06:59 06:59 06:59 Weight 40.823 kg General appearance: PRESENT: mild distress Head exam: PRESENT: atraumatic, normocephalic Eye exam: PRESENT: conjunctiva pink, EOMI, PERRLA Ear exam: PRESENT: normal external ear exam Mouth exam: PRESENT: moist, tongue midline Neck exam: PRESENT: full ROM Respiratory exam: PRESENT: clear to auscultation heydi Cardiovascular exam: PRESENT: RRR, +S1, +S2 Vascular exam: PRESENT: normal capillary refill GI/Abdominal exam: PRESENT: normal bowel sounds, soft Rectal exam: PRESENT: deferred Neurological exam: PRESENT: alert, CN II-XII grossly intact Psychiatric exam: PRESENT: appropriate affect, normal mood Skin exam: PRESENT: dry Results Laboratory Results: 03/16/17 10:00 03/16/17 10:50 03/15/17 03/15/17 03/16/17 22:38 23:00 10:00 WBC 10.0 RBC 3.78 Hgb 12.4 D Hct 37.2 MCV 99 H MCH 32.9 MCHC 33.4 RDW 14.4 H Plt Count 140 L Seg Neutrophils % 79.9 H Lymphocytes % 11.1 L Monocytes % 7.9 Eosinophils % 0.7 Basophils % 0.4 Absolute Neutrophils 8.0 Absolute Lymphocytes 1.1 Absolute Monocytes 0.8 Absolute Eosinophils 0.1 Absolute Basophils 0.0 Sodium Potassium Chloride Carbon Dioxide Anion Gap BUN Creatinine Est GFR ( Amer) Est GFR (Non-Af Amer) Glucose Calcium Total Bilirubin AST ALT Alkaline Phosphatase Ammonia 9.9 Total Protein Albumin Urine Color YELLOW Urine Appearance CLOUDY Urine pH 5.0 Ur Specific [place] 1.018 Urine Protein >=500 H Urine Glucose (UA) NEGATIVE Urine Ketones NEGATIVE Urine Blood MODERATE H Urine Nitrite NEGATIVE Ur Leukocyte Esterase SMALL H Urine WBC (Auto) 20 Urine RBC (Auto) 4 03/16/17 10:50 WBC RBC Hgb Hct MCV MCH MCHC RDW Plt Count Seg Neutrophils % Lymphocytes % Monocytes % Eosinophils % Basophils % Absolute Neutrophils Absolute Lymphocytes Absolute Monocytes Absolute Eosinophils Absolute Basophils Sodium 133.4 L Potassium 3.4 L D Chloride 109 H Carbon Dioxide 11 L Anion Gap 13 BUN 42 H Creatinine 1.88 H Est GFR ( Amer) 33 L Est GFR (Non-Af Amer) 27 L Glucose 82 Calcium 7.7 L Total Bilirubin 0.3 AST 44 H ALT 49 Alkaline Phosphatase 129 H Ammonia Total Protein 6.3 Albumin 3.4 L Urine Color Urine Appearance Urine pH Ur Specific [place] Urine Protein Urine Glucose (UA) Urine Ketones Urine Blood Urine Nitrite Ur Leukocyte Esterase Urine WBC (Auto) Urine RBC (Auto) 03/16/17 03/16/17 10:50 10:50 Creatine Kinase 115 CK-MB (CK-2) 2.70 Troponin I < 0.012 Impressions: Chest X-Ray 03/15/17 15:11 IMPRESSION: NO ACUTE RADIOGRAPHIC FINDING IN THE CHEST. Assessment & Plan - Diagnosis (1) Acute pancreatitis Qualifiers: Pancreatitis type: unspecified pancreatitis type Acute pancreatitis complication: unspecified Qualified Code(s): K85.90 - Acute pancreatitis without necrosis or infection, unspecified Is this a current diagnosis for this admission?: Yes Plan: She has acute pancreatitis, she be kept n.p.o., manage conservatively (2) Acute kidney injury Is this a current diagnosis for this admission?: Yes Plan: This is most likely prerenal from high output ileostomy state (3) Metabolic acidosis Is this a current diagnosis for this admission?: Yes Plan: There is increased anion gap metabolic acidosis most likely due to acute kidney injury
--- NOTE | 2017-03-16 13:05 | PDOC PROGRESS REPORT ---
Subjective Progress Note for:: 03/16/17 Subjective:: She was seen at the bedside, she was admitted for the management of acute pancreatitis, acute kidney injury, the kidney function is improved with hydration suggesting that the acute kidney injury is due to dehydration. Reason For Visit: ACUTE PANCREATITIS, METABOLIC ACIDOSIS Physical Exam Vital Signs: Temp Pulse Resp BP Pulse Ox 86 14 122/56 L 100 03/15/17 15:36 03/16/17 11:00 03/16/17 08:32 03/16/17 06:01 Intake & Output 03/15/17 03/16/17 03/17/17 06:59 06:59 06:59 Weight 40.823 kg General appearance: PRESENT: no acute distress Head exam: PRESENT: atraumatic, normocephalic Eye exam: PRESENT: conjunctiva pink, EOMI, PERRLA Neck exam: PRESENT: full ROM Respiratory exam: PRESENT: clear to auscultation heydi Cardiovascular exam: PRESENT: RRR, +S1, +S2 Pulses: PRESENT: normal dorsalis pedis pul, +2 pedal pulses bilateral Vascular exam: PRESENT: normal capillary refill GI/Abdominal exam: PRESENT: normal bowel sounds, soft Rectal exam: PRESENT: deferred Neurological exam: PRESENT: alert, CN II-XII grossly intact Psychiatric exam: PRESENT: appropriate affect, normal mood Skin exam: PRESENT: dry, intact, warm Results Laboratory Results: 03/16/17 10:00 03/16/17 10:50 03/15/17 03/15/17 03/16/17 22:38 23:00 10:00 WBC 10.0 RBC 3.78 Hgb 12.4 D Hct 37.2 MCV 99 H MCH 32.9 MCHC 33.4 RDW 14.4 H Plt Count 140 L Seg Neutrophils % 79.9 H Lymphocytes % 11.1 L Monocytes % 7.9 Eosinophils % 0.7 Basophils % 0.4 Absolute Neutrophils 8.0 Absolute Lymphocytes 1.1 Absolute Monocytes 0.8 Absolute Eosinophils 0.1 Absolute Basophils 0.0 Sodium Potassium Chloride Carbon Dioxide Anion Gap BUN Creatinine Est GFR ( Amer) Est GFR (Non-Af Amer) Glucose Calcium Total Bilirubin AST ALT Alkaline Phosphatase Ammonia 9.9 Total Protein Albumin Urine Color YELLOW Urine Appearance CLOUDY Urine pH 5.0 Ur Specific [place] 1.018 Urine Protein >=500 H Urine Glucose (UA) NEGATIVE Urine Ketones NEGATIVE Urine Blood MODERATE H Urine Nitrite NEGATIVE Ur Leukocyte Esterase SMALL H Urine WBC (Auto) 20 Urine RBC (Auto) 4 03/16/17 10:50 WBC RBC Hgb Hct MCV MCH MCHC RDW Plt Count Seg Neutrophils % Lymphocytes % Monocytes % Eosinophils % Basophils % Absolute Neutrophils Absolute Lymphocytes Absolute Monocytes Absolute Eosinophils Absolute Basophils Sodium 133.4 L Potassium 3.4 L D Chloride 109 H Carbon Dioxide 11 L Anion Gap 13 BUN 42 H Creatinine 1.88 H Est GFR ( Amer) 33 L Est GFR (Non-Af Amer) 27 L Glucose 82 Calcium 7.7 L Total Bilirubin 0.3 AST 44 H ALT 49 Alkaline Phosphatase 129 H Ammonia Total Protein 6.3 Albumin 3.4 L Urine Color Urine Appearance Urine pH Ur Specific [place] Urine Protein Urine Glucose (UA) Urine Ketones Urine Blood Urine Nitrite Ur Leukocyte Esterase Urine WBC (Auto) Urine RBC (Auto) 03/16/17 03/16/17 10:50 10:50 Creatine Kinase 115 CK-MB (CK-2) 2.70 Troponin I < 0.012 Impressions: Chest X-Ray 03/15/17 15:11 IMPRESSION: NO ACUTE RADIOGRAPHIC FINDING IN THE CHEST. Assessment & Plan - Diagnosis (1) Acute pancreatitis Qualifiers: Pancreatitis type: unspecified pancreatitis type Acute pancreatitis complication: unspecified Qualified Code(s): K85.90 - Acute pancreatitis without necrosis or infection, unspecified Is this a current diagnosis for this admission?: Yes (2) Acute kidney injury Is this a current diagnosis for this admission?: Yes (3) Metabolic acidosis Is this a current diagnosis for this admission?: Yes - Plan Summary Plan Summary: Continue hydration, continue n.p.o.
[2017-03-16] MEDS ORDERED: METHYLPREDNISOLONE INJ 125 MG/2 ML SDV IV SCH (13:45)
[2017-03-16] MEDS ORDERED: CYANOCOBALAMIN (VITAMIN B-12) INJ 1000 MCG/1 ML VIAL IM SCH (14:00)
[2017-03-16 14:08] LABS: UR PRO/CREAT RATIO RESULT 0.9 mg/mg (0.0-0.2); URINE CREATININE 205.7 mg/dL (15-278)
[2017-03-16] MEDS: NORMAL SALINE 1000 ML 1,000 ML IV PRN (21:15)
[2017-03-17] MEDS: HYDROMORPHONE HCL INJ/PF 2 MG/ML AMPULE IV PRN ×3 (02:41→20:06)
[2017-03-17 05:41] LABS: ABSOLUTE MONOCYTES (AUTO) 0.5 10^3/uL (0.1-1.4); ABSOLUTE NEUT (AUTO) 6.2 10^3/uL (1.7-8.2); BASOPHILS % (AUTO) 0.1 % (0-2); EOSINOPHILS % (AUTO) 0.2 % (0-6); HEMATOCRIT 31.1 % (36.0-47.0); HEMOGLOBIN 10.5 g/dL (12.0-15.5); LYMPHOCYTES % (AUTO) 12.7 % (13-45); MEAN CORPUSCULAR HEMOGLOBIN 33.3 pg (27.0-33.4); MEAN CORPUSCULAR HGB CONC 33.8 g/dL (32.0-36.0); MEAN CORPUSCULAR VOLUME 98 fl (80-97); MONOCYTES % (AUTO) 6.7 % (3-13); PLATELET COUNT 155 10^3/uL (150-450); RED BLOOD COUNT 3.16 10^6/uL (3.72-5.28); RED CELL DISTRIBUTION WIDTH 14.2 % (11.5-14.0); SEGMENTED NEUTROPHILS % (AUTO) 80.3 % (42-78); TOTAL CELLS COUNTED % (AUTO) 100 %; WHITE BLOOD COUNT 7.7 10^3/uL (4.0-10.5)
[2017-03-17] MEDS: NORMAL SALINE 1000 ML 1,000 ML IV PRN (05:48)
[2017-03-17] MEDS: HEPARIN SOD (PORCINE) 5,000 UNIT/ML 1 ML SYRINGE SUBCUT SCH ×3 (05:58→22:16)
[2017-03-17 06:17] LABS: ALANINE AMINOTRANSFERASE 49 U/L (9-52); ALBUMIN 3.1 g/dL (3.5-5.0); ALKALINE PHOSPHATASE 115 U/L (38-126); ASPARTATE AMINO TRANSFERASE 29 U/L (14-36); BILIRUBIN,DIRECT 0.3 mg/dL (0.0-0.4); BILIRUBIN,TOTAL 0.4 mg/dL (0.2-1.3); BLOOD UREA NITROGEN 39 mg/dL (7-20); CALCIUM 8.4 mg/dL (8.4-10.2); CHLORIDE 112 mmol/L (98-107); GLUCOSE 47 mg/dL (75-110); SODIUM 139.7 mmol/L (137-145); TOTAL PROTEIN 5.6 g/dL (6.3-8.2)
[2017-03-17 06:22] LABS: ANION GAP 18 (5-19)
[2017-03-17 06:26] LABS: LIPASE 2878.8 U/L (23-300)
[2017-03-17 06:27] LABS: CARBON DIOXIDE 10 mmol/L (22-30); POTASSIUM 2.6 mmol/L (3.6-5.0)
[2017-03-17] MEDS: POTASSIUM CHLORIDE 20 MEQ/50 ML RTU IV SCH ×6 (08:33→22:53)
[2017-03-17 11:13] LABS: ARTERIAL BLOOD BASE EXCESS -16.7 mmol/L; ARTERIAL BLOOD H2CO3 0.74 mmol/L (1.05-1.35); ARTERIAL BLOOD HCO3 9.6 mmol/L (20-26); ARTERIAL BLOOD O2 SATURATION 97.1 % (94-98); ARTERIAL BLOOD PCO2 24.6 mmHg (35-45); ARTERIAL BLOOD PH 7.21 (7.35-7.45); ARTERIAL BLOOD PO2 109.2 mmHg (80-100); ARTERIAL BLOOD TOTAL CO2 10.3 mmol/L (21-25)
[2017-03-17 11:14] LABS: ARTERIAL BLOOD FIO2 ROOM AIR
--- NOTE | 2017-03-17 11:46 | PDOC PROGRESS REPORT ---
Subjective Progress Note for:: 03/17/17 Subjective:: She was seen by the bedside, she stated that she had nightmares last night, she normally uses benzodiazepines Xanax, trazodone but when she was admitted she was kept n.p.o. because she presented with severe pancreatitis, acute kidney injury with associated metabolic acidosis. The serum lipase is decreased from 384950 to 2878.8. The lab work showed severe hypokalemia still very acidotic, arterial blood gas pH is 7.2 but well compensated from respiratory standpoint. Reason For Visit: ACUTE PANCREATITIS, METABOLIC ACIDOSIS Physical Exam Vital Signs: Temp Pulse Resp BP Pulse Ox 98.8 F 67 18 119/53 L 100 03/17/17 08:40 03/17/17 08:40 03/17/17 08:40 03/17/17 08:40 03/17/17 08:40 Intake & Output 03/16/17 03/17/17 03/18/17 06:59 06:59 06:59 Intake Total 1171 Balance 1171 Weight 40.823 kg 45.7 kg General appearance: PRESENT: no acute distress Eye exam: PRESENT: PERRLA Respiratory exam: PRESENT: clear to auscultation heydi Cardiovascular exam: PRESENT: +S1, +S2 GI/Abdominal exam: PRESENT: soft Neurological exam: PRESENT: alert, CN II-XII grossly intact Results Laboratory Results: 03/17/17 04:28 03/17/17 04:28 03/17/17 03/17/17 03/17/17 04:28 04:28 11:00 WBC 7.7 RBC 3.16 L Hgb 10.5 L Hct 31.1 L MCV 98 H MCH 33.3 MCHC 33.8 RDW 14.2 H Plt Count 155 Seg Neutrophils % 80.3 H Lymphocytes % 12.7 L Monocytes % 6.7 Eosinophils % 0.2 Basophils % 0.1 Absolute Neutrophils 6.2 Absolute Lymphocytes 1.0 Absolute Monocytes 0.5 Absolute Eosinophils 0.0 Absolute Basophils 0.0 Carbonic Acid 0.74 L HCO3/H2CO3 Ratio 12:1 ABG pH 7.21 L ABG pCO2 24.6 L ABG pO2 109.2 H ABG HCO3 9.6 L ABG O2 Saturation 97.1 ABG Base Excess -16.7 FiO2 ROOM AIR Sodium 139.7 Potassium 2.6 L* Chloride 112 H Carbon Dioxide 10 L* Anion Gap 18 BUN 39 H Creatinine 1.12 Est GFR ( Amer) 59 L Est GFR (Non-Af Amer) 49 L Glucose 47 L Calcium 8.4 Total Bilirubin 0.4 AST 29 ALT 49 Alkaline Phosphatase 115 Total Protein 5.6 L Albumin 3.1 L Lipase 2878.8 H 03/16/17 03/16/17 10:50 10:50 Creatine Kinase 115 CK-MB (CK-2) 2.70 Troponin I < 0.012 Impressions: Chest X-Ray 03/15/17 15:11 IMPRESSION: NO ACUTE RADIOGRAPHIC FINDING IN THE CHEST. Assessment & Plan - Diagnosis (1) Acute pancreatitis Qualifiers: Pancreatitis type: unspecified pancreatitis type Acute pancreatitis complication: unspecified Qualified Code(s): K85.90 - Acute pancreatitis without necrosis or infection, unspecified Is this a current diagnosis for this admission?: Yes Plan: Start clear liquid diet (2) Acute kidney injury Is this a current diagnosis for this admission?: Yes Plan: The kidney function is improved with hydration (3) Hypokalemia Is this a current diagnosis for this admission?: Yes Plan: Replace potassium with K riders (4) High anion gap metabolic acidosis Is this a current diagnosis for this admission?: Yes
[2017-03-17] MEDS ORDERED: MAG HYDROX/AL HYDROX/SIMETH SUSP 30 ML UDCUP PO PRN (11:56)
[2017-03-17] MEDS ORDERED: (PENDING PHARMACY ID) (Lipase/Protease/Amylase [Creon Dr 12,000 Units Capsule] 1 EACH) PO SCH (12:00)
[2017-03-17] MEDS: ALPRAZOLAM 0.5 MG TABLET PO PRN ×2 (13:07→22:16)
[2017-03-17 16:57] LABS: ALANINE AMINOTRANSFERASE 35 U/L (9-52); ALKALINE PHOSPHATASE 114 U/L (38-126); ANION GAP 15 (5-19); ASPARTATE AMINO TRANSFERASE 20 U/L (14-36); BILIRUBIN,DIRECT 0.2 mg/dL (0.0-0.4); BILIRUBIN,TOTAL 0.4 mg/dL (0.2-1.3); BLOOD UREA NITROGEN 33 mg/dL (7-20); CALCIUM 8.9 mg/dL (8.4-10.2); CARBON DIOXIDE 12 mmol/L (22-30); CHLORIDE 115 mmol/L (98-107); GLUCOSE 85 mg/dL (75-110); TOTAL PROTEIN 5.4 g/dL (6.3-8.2)
[2017-03-17] MEDS: ONDANSETRON HCL INJ/PF 4 MG/2 ML SDV IV PRN (22:14)
[2017-03-17] MEDS: POTASSIUM CHLORIDE 10 MEQ TABLET.SA PO SCH (22:14)
[2017-03-17] MEDS: TRAZODONE HCL 50 MG TABLET PO SCH (22:15)
[2017-03-17] MEDS: VENLAFAXINE HCL 75 MG TABLET PO SCH (22:16)
[2017-03-18] MEDS: ACETAMINOPHEN 325 MG TABLET PO PRN ×4 (00:05→19:49)
[2017-03-18] MEDS: POTASSIUM CHLORIDE 10 MEQ TABLET.SA PO SCH (00:49)
[2017-03-18] MEDS: NORMAL SALINE 1000 ML 1,000 ML IV PRN ×2 (01:41→10:54)
[2017-03-18 05:09] LABS: ABSOLUTE MONOCYTES (AUTO) 0.5 10^3/uL (0.1-1.4); ABSOLUTE NEUT (AUTO) 4.9 10^3/uL (1.7-8.2); BASOPHILS % (AUTO) 0.1 % (0-2); EOSINOPHILS % (AUTO) 0.4 % (0-6); HEMATOCRIT 28.4 % (36.0-47.0); HEMOGLOBIN 9.7 g/dL (12.0-15.5); LYMPHOCYTES % (AUTO) 15.2 % (13-45); MEAN CORPUSCULAR HEMOGLOBIN 33.2 pg (27.0-33.4); MEAN CORPUSCULAR HGB CONC 34.3 g/dL (32.0-36.0); MEAN CORPUSCULAR VOLUME 97 fl (80-97); MONOCYTES % (AUTO) 7.3 % (3-13); PLATELET COUNT 165 10^3/uL (150-450); RED BLOOD COUNT 2.93 10^6/uL (3.72-5.28); RED CELL DISTRIBUTION WIDTH 14.3 % (11.5-14.0); TOTAL CELLS COUNTED % (AUTO) 100 %; WHITE BLOOD COUNT 6.4 10^3/uL (4.0-10.5)
[2017-03-18 05:35] LABS: ALANINE AMINOTRANSFERASE 33 U/L (9-52); ALBUMIN 2.9 g/dL (3.5-5.0); ALKALINE PHOSPHATASE 119 U/L (38-126); ANION GAP 11 (5-19); ASPARTATE AMINO TRANSFERASE 19 U/L (14-36); BILIRUBIN,DIRECT 0.2 mg/dL (0.0-0.4); BILIRUBIN,TOTAL 0.2 mg/dL (0.2-1.3); BLOOD UREA NITROGEN 26 mg/dL (7-20); CALCIUM 9.4 mg/dL (8.4-10.2); CARBON DIOXIDE 11 mmol/L (22-30); CHLORIDE 120 mmol/L (98-107); GLUCOSE 101 mg/dL (75-110); SODIUM 141.7 mmol/L (137-145); TOTAL PROTEIN 5.6 g/dL (6.3-8.2)
[2017-03-18 05:45] LABS: LIPASE 3777.2 U/L (23-300)
[2017-03-18] MEDS: HEPARIN SOD (PORCINE) 5,000 UNIT/ML 1 ML SYRINGE SUBCUT SCH ×3 (05:47→21:49)
[2017-03-18] MEDS: LANSOPRAZOLE 30 MG TAB.RAP.DR PO SCH (05:47)
[2017-03-18] MEDS: ALPRAZOLAM 0.5 MG TABLET PO PRN ×3 (05:52→21:47)
[2017-03-18] MEDS: VENLAFAXINE HCL 75 MG TABLET PO SCH ×2 (09:31→21:47)
[2017-03-18] MEDS: LIPASE/PROTEASE/AMYLASE 1 CAP CAPSULE.DR PO SCH ×3 (09:31→17:38)
--- NOTE | 2017-03-18 12:55 | PDOC PROGRESS REPORT ---
Subjective Progress Note for:: 03/18/17 Subjective:: Patient is currently doing fair Patients wants to eat more food Denied any abdominal pain no nausea no vomiting And have a gallbladder surgery and status post common bile duct stent was placed at [facility] last year Patient otherwise denied any other symptoms Reason For Visit: ACUTE PANCREATITIS, METABOLIC ACIDOSIS Physical Exam Vital Signs: Temp Pulse Resp BP Pulse Ox 98.7 F 79 17 105/52 L 99 03/18/17 11:18 03/18/17 11:18 03/18/17 11:18 03/18/17 11:18 03/18/17 11:18 Intake & Output 03/17/17 03/18/17 03/19/17 06:59 06:59 06:59 Intake Total 1171 2178 0 Output Total 3 Balance 1171 2178 -3 Weight 45.7 kg 46.8 kg General appearance: PRESENT: no acute distress, well-developed, well-nourished Head exam: PRESENT: atraumatic, normocephalic Eye exam: PRESENT: conjunctiva pink, EOMI, PERRLA. ABSENT: scleral icterus Ear exam: PRESENT: normal external ear exam Mouth exam: PRESENT: moist, tongue midline Neck exam: PRESENT: full ROM. ABSENT: carotid bruit, JVD, lymphadenopathy, thyromegaly Respiratory exam: PRESENT: clear to auscultation heydi Cardiovascular exam: PRESENT: RRR. ABSENT: diastolic murmur, rubs, systolic murmur Pulses: PRESENT: normal dorsalis pedis pul, +2 pedal pulses bilateral Vascular exam: PRESENT: normal capillary refill GI/Abdominal exam: PRESENT: normal bowel sounds, soft. ABSENT: distended, guarding, mass, organolmegaly, rebound, tenderness Additonal comments: illessomy bag is present Rectal exam: PRESENT: deferred Extremities exam: ABSENT: pedal edema Neurological exam: PRESENT: alert, awake, oriented to person, oriented to place , oriented to time, oriented to situation, CN II-XII grossly intact. ABSENT: motor sensory deficit Psychiatric exam: PRESENT: appropriate affect, normal mood. ABSENT: homicidal ideation, suicidal ideation Skin exam: PRESENT: dry, intact, warm. ABSENT: cyanosis, rash Results Laboratory Results: 03/18/17 04:16 03/18/17 04:16 03/17/17 03/17/17 03/18/17 12:50 16:35 04:16 WBC 6.4 RBC 2.93 L Hgb 9.7 L Hct 28.4 L MCV 97 MCH 33.2 MCHC 34.3 RDW 14.3 H Plt Count 165 Seg Neutrophils % 77.0 Lymphocytes % 15.2 Monocytes % 7.3 Eosinophils % 0.4 Basophils % 0.1 Absolute Neutrophils 4.9 Absolute Lymphocytes 1.0 Absolute Monocytes 0.5 Absolute Eosinophils 0.0 Absolute Basophils 0.0 Sodium 142.0 Potassium 2.0 L* Chloride 115 H Carbon Dioxide 12 L Anion Gap 15 BUN 33 H Creatinine 0.96 Est GFR ( Amer) > 60 Est GFR (Non-Af Amer) 59 L Glucose 85 Lactic Acid 1.0 Calcium 8.9 Total Bilirubin 0.4 AST 20 ALT 35 Alkaline Phosphatase 114 Total Protein 5.4 L Albumin 3.0 L Lipase 03/18/17 04:16 WBC RBC Hgb Hct MCV MCH MCHC RDW Plt Count Seg Neutrophils % Lymphocytes % Monocytes % Eosinophils % Basophils % Absolute Neutrophils Absolute Lymphocytes Absolute Monocytes Absolute Eosinophils Absolute Basophils Sodium 141.7 Potassium 4.0 D Chloride 120 H Carbon Dioxide 11 L Anion Gap 11 BUN 26 H Creatinine 0.91 Est GFR ( Amer) > 60 Est GFR (Non-Af Amer) > 60 Glucose 101 Lactic Acid Calcium 9.4 Total Bilirubin 0.2 AST 19 ALT 33 Alkaline Phosphatase 119 Total Protein 5.6 L Albumin 2.9 L Lipase 3777.2 H 03/16/17 03/16/17 10:50 10:50 Creatine Kinase 115 CK-MB (CK-2) 2.70 Troponin I < 0.012 Impressions: Chest X-Ray 03/15/17 15:11 IMPRESSION: NO ACUTE RADIOGRAPHIC FINDING IN THE CHEST. Assessment & Plan - Diagnosis (1) Acute pancreatitis Qualifiers: Pancreatitis type: unspecified pancreatitis type Acute pancreatitis complication: unspecified Qualified Code(s): K85.90 - Acute pancreatitis without necrosis or infection, unspecified Is this a current diagnosis for this admission?: Yes Plan: We will get the CT abdomen pelvis to rule out other etiology continues to IV fluid (2) Chronic renal insufficiency Qualifiers: Chronic kidney disease stage: unspecified stage Qualified Code(s): N18.9 - Chronic kidney disease, unspecified Is this a current diagnosis for this admission?: Yes Plan: Continues to IV fluid (3) Hypokalemia Is this a current diagnosis for this admission?: Yes Plan: The high output ileostomy continues to supplement with the potassiums (4) Ileostomy present Is this a current diagnosis for this admission?: Yes (5) Metabolic acidosis Is this a current diagnosis for this admission?: Yes Plan: Due to the chronic acidosis - Time Time Spent with patient: 15-24 minutes Medications reviewed and adjusted accordingly: Yes Anticipated discharge: Other Within: Other - Inpatient Certification Medical Necessity: Need Close Monitoring Due to Risk of Patient Decompensation, Need For IV Fluids Post Hospital Care: D/C Private Inquiry Agent Documentation - Plan Summary Plan Summary: Continues to current medications will get the CT abdomen and pelvis if it looks all stable will advance the diet
--- NOTE | 2017-03-18 14:09 | RADIOLOGY REPORT (SQ) ---
EXAM DESCRIPTION: CT ABD/PELVIS WITH IV ONLY COMPLETED DATE/TIME: 03/18/2017 1:39 pm REASON FOR STUDY: acute pancreatatis COMPARISON: 06/28/2016 TECHNIQUE: CT scan of the abdomen and pelvis performed using helical scanning technique with dynamic intravenous contrast injection. No oral contrast. Images reviewed with lung, soft tissue, and bone windows. Reconstructed coronal and sagittal MPR images reviewed. Delayed images for evaluation of the urinary system also acquired. All images stored on PACS. All CT scanners at this facility use dose modulation, iterative reconstruction, and/or weight based d osing when appropriate to reduce radiation dose to as low as reasonably achievable (ALARA). [facility]: Dose Right [facility]: CareDose [facility]: Dose Right [facility]: Teradose 4D [facility]: [email or web address] CONTRAST TYPE AND DOSE: contrast/concentration: Isovue 370.00 mg/ml; Total Contrast Delivered: 51.0 ml; Total Saline Delivered: 65.0 ml RENAL FUNCTION: GFR > 60. RADIATION DOSE: CT Rad equipment meets quality standard of care and radiation dose reduction techniq ues were employed. CTDIvol: 4.8 - 5.2 mGy. DLP: 463 mGy-cm.. LIMITATIONS: None. FINDINGS: LOWER CHEST: No significant findings. No nodules or infiltrates. LIVER: Normal size. No masses. No dilated ducts. SPLEEN: Normal size. No focal lesions. PANCREAS: No masses. No significant calcifications. No adjacent inflammation or peripancreatic fluid collections. Pancreatic duct not dilated. GALLBLADDER: Surgically absent. ADRENAL GLANDS: No significant masses or asymmetry. RIGHT KIDNEY AND URETER: No solid masses. No significant calcifications. No hydronephrosis or hyd roureter. LEFT KIDNEY AND URETER: No solid masses. No significant calcifications. No hydronephrosis or hydr oureter. AORTA AND VESSELS: No aneurysm. No dissection. Renal arteries, SMA, celiac without stenosis. RETROPERITONEUM: No retroperitoneal adenopathy, hemorrhage or masses. BOWEL AND PERITONEAL CAVITY: Stable postsurgical change related to total colectomy and partial small bowel resection with diverting ostomy in the left lower quadrant. Remaining loops of bowel are louis l without evidence of obstruction or acute inflammation. APPENDIX: Surgically absent. PELVIS: No mass. No free fluid. Normal bladder. ABDOMINAL WALL: No masses. No hernias. BONES: No significant or acute findings. OTHER: No other significant finding. IMPRESSION: NO ACUTE INFLAMMATORY CHANGE IDENTIFIED WITHIN THE ABDOMEN OR PELVIS. NO SIGNIFICANT CH RAPHAEL FROM PRIOR CT. TECHNICAL DOCUMENTATION: JOB ID: [id number] Quality ID # [id number]: Final reports with documentation of one or more dose reduction techniques (e.g., Au tomated exposure control, adjustment of the mA and/or kV according to patient size, use of iterative reconstruction technique) 2010 [employer]- All Rights Reserved
[2017-03-18] MEDS: ONDANSETRON HCL INJ/PF 4 MG/2 ML SDV IV PRN (19:50)
[2017-03-18] MEDS: TRAZODONE HCL 50 MG TABLET PO SCH (21:47)
[2017-03-19 04:53] LABS: ABSOLUTE EOSINOPHILS # (AUTO) 0.1 10^3/uL (0.0-0.6); ABSOLUTE LYMPHOCYTES (AUTO) 1.3 10^3/uL (0.5-4.7); ABSOLUTE MONOCYTES (AUTO) 0.4 10^3/uL (0.1-1.4); ABSOLUTE NEUT (AUTO) 5.6 10^3/uL (1.7-8.2); BASOPHILS % (AUTO) 0.2 % (0-2); EOSINOPHILS % (AUTO) 0.7 % (0-6); HEMATOCRIT 29.5 % (36.0-47.0); HEMOGLOBIN 10.1 g/dL (12.0-15.5); LYMPHOCYTES % (AUTO) 17.3 % (13-45); MEAN CORPUSCULAR HEMOGLOBIN 33.4 pg (27.0-33.4); MEAN CORPUSCULAR HGB CONC 34.3 g/dL (32.0-36.0); MEAN CORPUSCULAR VOLUME 97 fl (80-97); MONOCYTES % (AUTO) 5.7 % (3-13); PLATELET COUNT 198 10^3/uL (150-450); RED BLOOD COUNT 3.03 10^6/uL (3.72-5.28); RED CELL DISTRIBUTION WIDTH 13.9 % (11.5-14.0); SEGMENTED NEUTROPHILS % (AUTO) 76.1 % (42-78); TOTAL CELLS COUNTED % (AUTO) 100 %; WHITE BLOOD COUNT 7.4 10^3/uL (4.0-10.5)
[2017-03-19 05:18] LABS: ALANINE AMINOTRANSFERASE 34 U/L (9-52); ALBUMIN 3.2 g/dL (3.5-5.0); ALKALINE PHOSPHATASE 113 U/L (38-126); ANION GAP 15 (5-19); ASPARTATE AMINO TRANSFERASE 17 U/L (14-36); BILIRUBIN,DIRECT 0.1 mg/dL (0.0-0.4); BILIRUBIN,TOTAL 0.2 mg/dL (0.2-1.3); BLOOD UREA NITROGEN 19 mg/dL (7-20); CARBON DIOXIDE 12 mmol/L (22-30); CHLORIDE 118 mmol/L (98-107); GLUCOSE 89 mg/dL (75-110); SODIUM 145.4 mmol/L (137-145); TOTAL PROTEIN 5.9 g/dL (6.3-8.2)
[2017-03-19 05:32] LABS: POTASSIUM 2.8 mmol/L (3.6-5.0)
[2017-03-19 06:02] LABS: LIPASE 5281.3 U/L (23-300)
[2017-03-19] MEDS: LANSOPRAZOLE 30 MG TAB.RAP.DR PO SCH (06:07)
[2017-03-19] MEDS: ALPRAZOLAM 0.5 MG TABLET PO PRN ×3 (06:07→21:16)
[2017-03-19] MEDS: POTASSIUM CHLORIDE 10 MEQ TABLET.SA PO SCH ×2 (06:08→09:33)
[2017-03-19] MEDS: ACETAMINOPHEN 325 MG TABLET PO PRN ×2 (06:08→17:46)
[2017-03-19] MEDS: HEPARIN SOD (PORCINE) 5,000 UNIT/ML 1 ML SYRINGE SUBCUT SCH ×3 (06:10→21:19)
[2017-03-19] MEDS: LIPASE/PROTEASE/AMYLASE 1 CAP CAPSULE.DR PO SCH ×3 (08:55→16:08)
[2017-03-19] MEDS: ONDANSETRON HCL INJ/PF 4 MG/2 ML SDV IV PRN (09:33)
[2017-03-19] MEDS: VENLAFAXINE HCL 75 MG TABLET PO SCH ×2 (09:34→21:17)
[2017-03-19] MEDS: HYDROMORPHONE HCL INJ/PF 2 MG/ML AMPULE IV PRN ×2 (10:26→20:01)
[2017-03-19] MEDS ORDERED: POTASSI CL 40 MEQ/D5-1/2NS 1L 40 MEQ/1,000 ML RTUINJ IV ONE ×2 (12:35→12:58)
[2017-03-19] MEDS: TRAZODONE HCL 50 MG TABLET PO SCH (21:16)
--- NOTE | 2017-03-19 21:53 | PROGRESS NOTE E ---
Progress Note NAME: DONALD ALBRIGHT : 1950 AGE: 66Y DATE: 03/19/2017 ROOM: 306 SUBJECTIVE: The patient is apparently doing fair. The patient denied any abdominal pain. No nausea. No vomiting. The patient's lipase is still elevated. The patient's CT abdomen and pelvis was done and there is no sign of any inflammation in the pancreas. The patient still has a high output. OBJECTIVE: VITAL SIGNS: Currently all stable. GENERAL: The patient is alert, awake, oriented, in no acute distress. HEAD AND NECK: Normocephalic. PERRLA. LUNGS: No wheezing, no rales, no rhonchi. HEART: S1, S2 is present. ABDOMEN: Ileostomy bag is present. EXTREMITIES: No edema. NEUROLOGIC: No focal weaknesses. LABORATORY DATA: Potassium is 2.8. IMAGING STUDIES: CT abdomen and pelvis was reviewed with no acute findings. ASSESSMENT: 1. ACUTE PANCREATITIS. 2. HYPOKALEMIA. 3. HIGH ILEOSTOMY OUTPUT. PLAN: At this point replace the potassium. The patient literally looks much better with this pancreatitis, even the pancreas lipase enzyme is elevated. Continue a full liquid diet. Repeat the blood work in the morning and continue to monitor the patient at this point. DICTATING PHYSICIAN: FENG VALENCIA M.D. [id number] [place]#: [id number] ID: [id number] JOB#: [id number] ACCT: [id number] cc: >
[2017-03-20] MEDS: POTASSI CL 40 MEQ/D5-1/2NS 1L 1000 ML IV PRN ×2 (01:55→15:18)
[2017-03-20] MEDS: LANSOPRAZOLE 30 MG TAB.RAP.DR PO SCH (05:35)
[2017-03-20] MEDS: HEPARIN SOD (PORCINE) 5,000 UNIT/ML 1 ML SYRINGE SUBCUT SCH ×3 (05:36→21:29)
[2017-03-20 05:42] LABS: ANION GAP 11 (5-19); BLOOD UREA NITROGEN 15 mg/dL (7-20); CALCIUM 9.3 mg/dL (8.4-10.2); CARBON DIOXIDE 14 mmol/L (22-30); CHLORIDE 117 mmol/L (98-107); GLUCOSE 95 mg/dL (75-110); POTASSIUM 3.7 mmol/L (3.6-5.0); SODIUM 141.7 mmol/L (137-145)
[2017-03-20] MEDS: ACETAMINOPHEN 325 MG TABLET PO PRN ×3 (06:04→22:42)
[2017-03-20] MEDS: ALPRAZOLAM 0.5 MG TABLET PO PRN ×3 (06:05→22:42)
[2017-03-20] MEDS: LIPASE/PROTEASE/AMYLASE 1 CAP CAPSULE.DR PO SCH ×3 (08:09→17:30)
[2017-03-20] MEDS: VENLAFAXINE HCL 75 MG TABLET PO SCH ×2 (09:38→21:31)
[2017-03-20] MEDS: HYDROMORPHONE HCL INJ/PF 2 MG/ML AMPULE IV PRN ×2 (10:43→18:07)
--- NOTE | 2017-03-20 21:27 | PDOC PROGRESS REPORT ---
Subjective Progress Note for:: 03/20/17 Subjective:: Patient was seen by the bedside, she had episode of hypokalemia last night this was replaced. She is presently tolerating oral feeds without any problems, over the weekend she had CAT scan of the abdomen and pelvis with contrast that was negative for any acute pathology. Reason For Visit: ACUTE PANCREATITIS, METABOLIC ACIDOSIS Physical Exam Vital Signs: Temp Pulse Resp BP Pulse Ox 98.6 F 76 14 110/62 100 03/20/17 19:44 03/20/17 20:50 03/20/17 19:44 03/20/17 19:44 03/20/17 19:44 Intake & Output 03/19/17 03/20/17 03/21/17 06:59 06:59 06:59 Intake Total 2488 5 1375 Output Total 3 Balance 2485 5 1375 Weight 45.9 kg 47.9 kg General appearance: PRESENT: no acute distress, well-developed, well-nourished Head exam: PRESENT: atraumatic, normocephalic Eye exam: PRESENT: conjunctiva pink, EOMI, PERRLA Ear exam: PRESENT: normal external ear exam Mouth exam: PRESENT: moist, tongue midline Neck exam: PRESENT: full ROM Respiratory exam: PRESENT: clear to auscultation heydi Cardiovascular exam: PRESENT: RRR, +S1, +S2 Vascular exam: PRESENT: normal capillary refill GI/Abdominal exam: PRESENT: normal bowel sounds, soft Rectal exam: PRESENT: deferred Neurological exam: PRESENT: alert Psychiatric exam: PRESENT: appropriate affect, normal mood Skin exam: PRESENT: dry, intact, warm Results Laboratory Results: 03/19/17 04:10 03/20/17 04:32 03/19/17 03/20/17 15:04 04:32 Sodium 141.7 Potassium 3.4 L 3.7 Chloride 117 H Carbon Dioxide 14 L Anion Gap 11 BUN 15 Creatinine 0.88 Est GFR ( Amer) > 60 Est GFR (Non-Af Amer) > 60 Glucose 95 Calcium 9.3 03/16/17 03/16/17 10:50 10:50 Creatine Kinase 115 CK-MB (CK-2) 2.70 Troponin I < 0.012 Impressions: Chest X-Ray 03/15/17 15:11 IMPRESSION: NO ACUTE RADIOGRAPHIC FINDING IN THE CHEST. Abdomen/Pelvis CT 03/18/17 00:00 IMPRESSION: NO ACUTE INFLAMMATORY CHANGE IDENTIFIED WITHIN THE ABDOMEN OR PELVIS. NO SIGNIFICANT CHANGE FROM PRIOR CT. Assessment & Plan - Diagnosis (1) Acute pancreatitis Qualifiers: Pancreatitis type: unspecified pancreatitis type Acute pancreatitis complication: unspecified Qualified Code(s): K85.90 - Acute pancreatitis without necrosis or infection, unspecified Is this a current diagnosis for this admission?: Yes (2) Acute kidney injury Is this a current diagnosis for this admission?: Yes (3) Hypokalemia Is this a current diagnosis for this admission?: Yes (4) High anion gap metabolic acidosis Is this a current diagnosis for this admission?: Yes - Plan Summary Plan Summary: She continues treatment
[2017-03-20] MEDS: TRAZODONE HCL 50 MG TABLET PO SCH (21:30)
[2017-03-21] MEDS: POTASSI CL 40 MEQ/D5-1/2NS 1L 1000 ML IV PRN ×2 (04:11→18:36)
[2017-03-21] MEDS: LANSOPRAZOLE 30 MG TAB.RAP.DR PO SCH (05:28)
[2017-03-21] MEDS: ACETAMINOPHEN 325 MG TABLET PO PRN ×2 (05:29→16:38)
[2017-03-21] MEDS: HEPARIN SOD (PORCINE) 5,000 UNIT/ML 1 ML SYRINGE SUBCUT SCH ×3 (05:29→21:33)
[2017-03-21 05:35] LABS: ANION GAP 9 (5-19); BLOOD UREA NITROGEN 12 mg/dL (7-20); CALCIUM 9.2 mg/dL (8.4-10.2); CARBON DIOXIDE 17 mmol/L (22-30); CHLORIDE 115 mmol/L (98-107); GLUCOSE 85 mg/dL (75-110); POTASSIUM 3.9 mmol/L (3.6-5.0); SODIUM 140.6 mmol/L (137-145)
[2017-03-21] MEDS: ALPRAZOLAM 0.5 MG TABLET PO PRN ×2 (06:40→21:33)
[2017-03-21] MEDS: LIPASE/PROTEASE/AMYLASE 1 CAP CAPSULE.DR PO SCH ×3 (07:42→16:37)
[2017-03-21] MEDS: ONDANSETRON HCL INJ/PF 4 MG/2 ML SDV IV PRN ×3 (08:49→19:43)
[2017-03-21] MEDS: HYDROMORPHONE HCL INJ/PF 2 MG/ML AMPULE IV PRN ×3 (08:49→19:43)
[2017-03-21] MEDS: VENLAFAXINE HCL 75 MG TABLET PO SCH ×2 (09:42→21:31)
[2017-03-21] MEDS ORDERED: AMOXICILLIN TRIHYD 250 MG CAPSULE PO ONE (18:00)
--- NOTE | 2017-03-21 20:21 | PDOC PROGRESS REPORT ---
Subjective Progress Note for:: 03/21/17 Subjective:: Patient was seen by the bedside, she complained of sore throat, the swab from the throat showed group A beta streptococcus . She was admitted for the management of acute pancreatitis, she was kept n.p.o., recently transitioned to liquid diet, this to be changed to regular diet if tolerated be discharged home soon Reason For Visit: ACUTE PANCREATITIS, METABOLIC ACIDOSIS Physical Exam Vital Signs: Temp Pulse Resp BP Pulse Ox 98.5 F 69 16 120/55 L 100 03/21/17 16:52 03/21/17 16:52 03/21/17 16:52 03/21/17 16:52 03/21/17 16:52 Intake & Output 03/20/17 03/21/17 03/22/17 06:59 06:59 06:59 Intake Total 2054 2196 1300 Balance 2054 2196 1300 Weight 47.9 kg 48.3 kg General appearance: PRESENT: no acute distress Head exam: PRESENT: atraumatic, normocephalic Eye exam: PRESENT: conjunctiva pink, EOMI, PERRLA Ear exam: PRESENT: normal external ear exam Mouth exam: PRESENT: moist, tongue midline Neck exam: PRESENT: full ROM Respiratory exam: PRESENT: clear to auscultation heydi Cardiovascular exam: PRESENT: RRR, +S1, +S2 Pulses: PRESENT: normal dorsalis pedis pul, +2 pedal pulses bilateral Vascular exam: PRESENT: normal capillary refill GI/Abdominal exam: PRESENT: normal bowel sounds, soft Rectal exam: PRESENT: deferred Neurological exam: PRESENT: alert, awake, oriented to person, oriented to place , oriented to time, oriented to situation, CN II-XII grossly intact Psychiatric exam: PRESENT: appropriate affect, normal mood Skin exam: PRESENT: dry, intact, warm Results Laboratory Results: 03/19/17 04:10 03/21/17 04:00 03/21/17 04:00 Sodium 140.6 Potassium 3.9 Chloride 115 H Carbon Dioxide 17 L Anion Gap 9 BUN 12 Creatinine 0.82 Est GFR ( Amer) > 60 Est GFR (Non-Af Amer) > 60 Glucose 85 Calcium 9.2 03/19/17 20:10 Throat Throat Culture - Final Group A Beta Streptococcus Normal Anne Marie 03/19/17 20:10 Nasophary (Mrsa Only) MRSA Surveillance Culture - Final NO MRSA RECOVERED 03/16/17 03/16/17 10:50 10:50 Creatine Kinase 115 CK-MB (CK-2) 2.70 Troponin I < 0.012 Impressions: Chest X-Ray 03/15/17 15:11 IMPRESSION: NO ACUTE RADIOGRAPHIC FINDING IN THE CHEST. Abdomen/Pelvis CT 03/18/17 00:00 IMPRESSION: NO ACUTE INFLAMMATORY CHANGE IDENTIFIED WITHIN THE ABDOMEN OR PELVIS. NO SIGNIFICANT CHANGE FROM PRIOR CT. Assessment & Plan - Diagnosis (1) Acute pancreatitis Qualifiers: Pancreatitis type: unspecified pancreatitis type Acute pancreatitis complication: unspecified Qualified Code(s): K85.90 - Acute pancreatitis without necrosis or infection, unspecified Is this a current diagnosis for this admission?: Yes (2) Acute kidney injury Is this a current diagnosis for this admission?: Yes (3) Hypokalemia Is this a current diagnosis for this admission?: Yes (4) High anion gap metabolic acidosis Is this a current diagnosis for this admission?: Yes (5) Pharyngitis due to group A beta hemolytic Streptococci Is this a current diagnosis for this admission?: Yes Plan: She is started on amoxicillin, 500 mg, 1 tablet 3 times a day for 7 days
[2017-03-21] MEDS: TRAZODONE HCL 50 MG TABLET PO SCH (21:30)
[2017-03-21] MEDS: AMOXICILLIN TRIHYD 250 MG CAPSULE PO SCH (21:30)
[2017-03-22] MEDS: HEPARIN SOD (PORCINE) 5,000 UNIT/ML 1 ML SYRINGE SUBCUT SCH ×2 (05:08→14:10)
[2017-03-22] MEDS: LANSOPRAZOLE 30 MG TAB.RAP.DR PO SCH (05:12)
[2017-03-22] MEDS: AMOXICILLIN TRIHYD 250 MG CAPSULE PO SCH ×2 (05:12→14:09)
[2017-03-22] MEDS: ACETAMINOPHEN 325 MG TABLET PO PRN ×2 (05:13→14:15)
[2017-03-22] MEDS: ALPRAZOLAM 0.5 MG TABLET PO PRN ×2 (05:35→14:15)
[2017-03-22] MEDS: LIPASE/PROTEASE/AMYLASE 1 CAP CAPSULE.DR PO SCH ×3 (08:16→16:19)
[2017-03-22] MEDS: POTASSI CL 40 MEQ/D5-1/2NS 1L 1000 ML IV PRN (08:17)
[2017-03-22] MEDS: VENLAFAXINE HCL 75 MG TABLET PO SCH (09:40)
[2017-03-22] MEDS: HYDROMORPHONE HCL INJ/PF 2 MG/ML AMPULE IV PRN (10:52)
--- NOTE | 2017-03-22 15:58 | PDOC TRANSFER SUMMARY ---
General - Admit/Disc Date/PCP Admission Date/Primary Care Provider: 03/15/17 19:02 DOMINIQUE JOYA MD Discharge Date: 03/22/17 - Discharge Diagnosis (1) Acute pancreatitis Is this a current diagnosis for this admission?: Yes (2) Acute kidney injury Is this a current diagnosis for this admission?: Yes (3) Hypokalemia Is this a current diagnosis for this admission?: Yes (4) High anion gap metabolic acidosis Is this a current diagnosis for this admission?: Yes (5) Pharyngitis due to group A beta hemolytic Streptococci Is this a current diagnosis for this admission?: Yes - Additional Information Discharge Activity: Activity As Tolerated Prescriptions: Amoxicillin Trihydrate [Amoxil 250 mg Capsule] 250 mg PO Q8 #21 capsule Home Medications: Acetaminophen [Tylenol Extra Strength 500 mg Tablet] 1 tab PO Q4HP PRN 03/15/17 Albuterol Sulfate [Ventolin Hfa] 2 puff IH Q6HP PRN 03/15/17 Alprazolam [Xanax] 1 mg PO Q8HP PRN 03/15/17 Cyanocobalamin (Vitamin B-12) [Vitamin B-12 Inj 1000 Mcg/1 ml Vial] 1,000 mcg IM .MONTHLY 03/15/17 Dicyclomine HCl [Bentyl 20 mg Tablet] 20 mg PO QID 03/15/17 Diphenoxylate HCl/Atrop Sulf [Lomotil 2.5 mg Tablet] 1 tab PO Q4HWA 03/15/17 Ergocalciferol (Vitamin D2) [Vitamin D2] 50,000 unit PO TH@1000 03/15/17 Guaifenesin [Tussin] 10 ml PO Q6HP PRN 03/15/17 Lipase/Protease/Amylase [Creon Dr 12,000 Units Capsule] 1 each PO Q8 03/15/17 Mag Hydrox/Al Hydrox/Simeth [Maalox Suspension] 30 ml PO Q6HP PRN 03/15/17 Omeprazole 40 mg PO DAILY 03/15/17 Ondansetron [Zofran Odt 4 mg Tablet] 1 tab PO Q8HP PRN 03/15/17 Potassium Chloride [Kaon-Cl 20 Meq/15 ml Udcup] 20 meq PO BID 03/15/17 Sennosides [Senokot] 34.4 mg PO Q12 03/15/17 Trazodone HCl [Desyrel 50 mg Tablet] 25 mg PO QHS 03/15/17 Venlafaxine HCl [Effexor 75 mg Tablet] 75 mg PO Q12 03/15/17 Amoxicillin Trihydrate [Amoxil 250 mg Capsule] 250 mg PO Q8 #21 capsule History of Present Illness Admission Date/PCP: 03/15/17 19:02 DOMINIQUE JOYA MD History of Present Illness: DONALD ALBRIGHT is a 66 year old female, she has a history of total colectomy with ileostomy bag, resident of assisted living facility at [facility] , she came to the emergency room for evaluation of generalized body weakness, generalized body aches and pain, abdominal pain and lethargy. She was evaluated in the emergency room, the serum lipase was 20,947 that was also associated elevated serum creatinine of 3.67 43 BUN bicarbonate was 7 there was associated high output ileostomy status. She is status post cholecystectomy, there is no history of alcohol abuse Hospital Course Hospital Course: Patient was admitted for the management of acute pancreatitis, she presented with acute pancreatitis, acute kidney injury, metabolic acidosis. She was kept n.p.o. for a couple of days of admission treated with normal saline she also add electrolyte derangement, hypokalemia that was replaced. Hospital course was complicated with sore throat, the swab culture from the throat grew group A beta-hemolytic Streptococcus this was treated with amoxicillin. Hospital course was prolonged because on presentation she had severe pancreatitis, she had CAT scan of the abdomen and pelvis with contrast, this was negative for an acute pathology. Patient is presently stable enough to be transferred back to [facility], [facility]. Physical Exam Vital Signs: Temp Pulse Resp BP Pulse Ox 99.0 F 80 16 133/70 H 100 03/22/17 04:15 03/22/17 14:00 03/22/17 04:15 03/22/17 04:15 03/22/17 04:15 Intake & Output 03/21/17 03/22/17 03/23/17 06:59 06:59 06:59 Intake Total 2195 1528 575 Balance 2199 2833 575 Weight 48.3 kg 48.3 kg General appearance: PRESENT: no acute distress, well-developed, well-nourished Head exam: PRESENT: atraumatic, normocephalic Eye exam: PRESENT: conjunctiva pink, EOMI, PERRLA Ear exam: PRESENT: normal external ear exam Mouth exam: PRESENT: moist, tongue midline Respiratory exam: PRESENT: clear to auscultation heydi Cardiovascular exam: PRESENT: RRR, +S1, +S2 Pulses: PRESENT: normal dorsalis pedis pul Vascular exam: PRESENT: normal capillary refill GI/Abdominal exam: PRESENT: normal bowel sounds, soft, other - Colostomy bag Rectal exam: PRESENT: deferred Extremities exam: PRESENT: full ROM Neurological exam: PRESENT: alert, awake, oriented to person, oriented to place , oriented to time, oriented to situation, CN II-XII grossly intact Psychiatric exam: PRESENT: appropriate affect, normal mood Skin exam: PRESENT: dry, intact, warm Results Laboratory Results: 03/19/17 04:10 03/21/17 04:00 03/19/17 20:10 Nose Wound - Not Specified Gram Stain - Final 03/19/17 20:10 Nose Wound - Not Specified Wound Culture - Final Staphylococcus Aureus 03/19/17 20:10 Throat Throat Culture - Final Group A Beta Streptococcus Normal Anne Marie 03/19/17 20:10 Nasophary (Mrsa Only) MRSA Surveillance Culture - Final NO MRSA RECOVERED 03/16/17 03/16/17 10:50 10:50 Creatine Kinase 115 CK-MB (CK-2) 2.70 Troponin I < 0.012 Impressions: Chest X-Ray 03/15/17 15:11 IMPRESSION: NO ACUTE RADIOGRAPHIC FINDING IN THE CHEST. Abdomen/Pelvis CT 03/18/17 00:00 IMPRESSION: NO ACUTE INFLAMMATORY CHANGE IDENTIFIED WITHIN THE ABDOMEN OR PELVIS. NO SIGNIFICANT CHANGE FROM PRIOR CT.
[2017-03-22 18:22] VITALS: BP 127/65
== END 2017-03-22 18:43 | DRG 439 ==
LOC: ER 14:31 → EH 19:02 → 3N 03-16 16:23
PROVIDERS: ADMIT Internal Medicine; ATTEND Internal Medicine
DX: K85.90 Acute pancreatitis without necrosis or infection, unspecified (principal); N17.9 Acute kidney failure, unspecified; E87.2 Acidosis; E87.6 Hypokalemia; J44.9 Chronic obstructive pulmonary disease, unspecified; E86.0 Dehydration; J02.0 Streptococcal pharyngitis; B95.0 Streptococcus, group A, as the cause of diseases classified elsewhere; N18.9 Chronic kidney disease, unspecified; R41.82 Altered mental status, unspecified; F17.210 Nicotine dependence, cigarettes, uncomplicated; Z93.2 Ileostomy status; Z79.51 Long term (current) use of inhaled steroids; Z79.899 Other long term (current) drug therapy
CPT/HCPCS: 36415; 36591; 36600; 51701; 71045; 74177; 80048; 80053; 80076; 80307; 81001; 82140; 82550; 82553; 82570; 82803; 83605; 83690; 83735; 84132; 84156; 84484; 85025; 85610; 85730; 87070; 87077; 87186; 87205; 87804; 87880; 93005; 93010; 96361; 96374; 96375; 99285; J1170; J1644; J2405; J3420; J3480; J3490; J7030

== ENCOUNTER 2017-04-13 03:09 | Emergency (ER) | payer MEDICARE, MEDICAID ==
[2017-04-13] MEDS ORDERED: ACETAMINOPHEN 325 MG TABLET PO ONE (03:37)
[2017-04-13] MEDS ORDERED: ALBUTEROL SULFATE 0.083% NEB 2.5 MG/3 ML AMPUL NEB ONE (03:37)
[2017-04-13] MEDS ORDERED: ONDANSETRON HCL INJ/PF 4 MG/2 ML SDV IV ONE (03:37)
--- NOTE | 2017-04-13 03:39 | ER Document Report ---
ED Flu Like - General Mode of Arrival: Medic Information source: Patient TRAVEL OUTSIDE OF THE [place] IN LAST 30 DAYS: No <GERTRUDE JOHNSON - Last Filed: 04/13/17 07:02> <GINGER GOMES - Last Filed: 04/13/17 21:58> - General Chief Complaint: Flu Symptoms Stated Complaint: FLU LIKE SYMPTOMS Time Seen by Provider: 04/13/17 03:27 Notes: Patient is a 66-year-old female With a history of COPD, pancreatitis, inflammatory bowel disease with ileostomy from half-way who presents to the ER today for 3-4 days of productive cough, fever, chills, body aches. Patient denies any nausea, vomiting or diarrhea. (GERTRUDE JOHNSON) - Related Data Allergies/Adverse Reactions: codeine Allergy (Verified 03/15/17 15:38) naproxen Allergy (Verified 03/15/17 15:38) pregabalin [From Lyrica] Allergy (Verified 03/15/17 15:38) Past Medical History - General Information source: Patient - Social History Smoking Status: Former Smoker Family History: Reviewed & Not Pertinent Pulmonary Medical History: Reports: Hx COPD Renal/ Medical History: Denies: Hx Peritoneal Dialysis GI Medical History: Reports: Hx Crohn's Disease, Hx Gastroesophageal Reflux Disease, Hx Colonoscopy, Hx Endoscopy Musculoskeltal Medical History: Reports Hx Arthritis, Reports Hx Musculoskeletal Deformity Skin Medical History: Reports Hx MRSA Psychiatric Medical History: Reports: Hx Depression Past Surgical History: Reports: Hx Abdominal Surgery - ileostomy, Hx Cholecystectomy, Hx Colostomy, Hx Hysterectomy, Hx Orthopedic Surgery - feet, Hx Rectal Surgery - removed, Other - Total colectomy - Immunizations Hx Diphtheria, Pertussis, Tetanus Vaccination: No Hx Pneumococcal Vaccination: 12/23/15 <GERTRUDE JOHNSON - Last Filed: 04/13/17 07:02> Review of Systems - Review of Systems Constitutional: See HPI EENT: No symptoms reported Cardiovascular: No symptoms reported Respiratory: See HPI Gastrointestinal: No symptoms reported Genitourinary: No symptoms reported Female Genitourinary: No symptoms reported Musculoskeletal: No symptoms reported Skin: No symptoms reported Hematologic/Lymphatic: No symptoms reported Neurological/Psychological: No symptoms reported <GERTRUDE JOHNSON - Last Filed: 04/13/17 07:02> Physical Exam <GERTRUDE JOHNSON - Last Filed: 04/13/17 07:02> <GINGER GOMES - Last Filed: 04/13/17 21:58> - Vital signs Vitals: BP 137/71 H 04/13/17 03:30 - Notes Notes: PHYSICAL EXAMINATION: GENERAL: Mildly ill-appearing, but in no acute distress. HEAD: Atraumatic, normocephalic. EYES: Pupils equal round and reactive to light, extraocular movements intact, sclera anicteric, conjunctiva are normal. ENT: ear canals without erythema or foreign body, TMs pearly rincon with good bony landmarks, nares patent, oropharynx clear without exudates. Moist mucous membranes. NECK: Normal range of motion, supple without lymphadenopathy LUNGS: Cough, otherwise CTAB and equal. No wheezes rales or rhonchi. HEART: Regular rate and rhythm without murmurs ABDOMEN: Soft, no tenderness. No guarding, no rebound BACK: no vertebral tenderness, normal ROM GI/: no CVA tenderness EXTREMITIES: Normal range of motion, no pitting edema. No cyanosis. NEUROLOGICAL: Cranial nerves grossly intact. Normal sensory/motor exams. PSYCH: Anxious SKIN: Warm, Dry, normal turgor, no rashes or lesions noted (EBER JOHNSONANDA) Course - Laboratory Result Diagrams: 04/13/17 04:45 04/13/17 04:45 <FATMATACINDYGERTRUDE - Last Filed: 04/13/17 07:02> - Laboratory Result Diagrams: 04/13/17 04:45 04/13/17 04:45 <GINGER GOMES - Last Filed: 04/13/17 21:58> - Re-evaluation Re-evalutation: 04/13/17 06:41 Patient has an elevated white blood cell count of 12.9, right perihilar opacity , probable pneumonia on chest x-ray. Flu negative today. Other lab work unremarkable today. Patient's vital signs have all been within normal limits with the exception of a fever of 102.9 that she came in with. We did give her Tylenol for this and it reduced. At this time patient is in a facility where there are people to manage her medications and make sure that she gets them, also patient is coherent and very concerned about her health, able to give me her entire medical history. I will send patient home at this time with outpatient Levaquin and an inhaler from the emergency department, something for cough. (GERTRUDE JOHNSON) - Vital Signs Vital signs: Temp Pulse Resp BP Pulse Ox 100.3 F 102 H 20 92/52 L 100 04/13/17 08:05 04/13/17 07:50 04/13/17 08:05 04/13/17 07:50 04/13/17 08:05 - Laboratory Laboratory results interpreted by me: 04/13/17 04/13/17 04/13/17 04:45 04:45 07:00 WBC 12.9 H RBC 2.93 L Hgb 9.8 L Hct 29.4 L MCV 100 H MCH 33.6 H RDW 16.0 H Seg Neutrophils % 88.5 H Lymphocytes % 5.3 L Absolute Neutrophils 11.4 H Sodium 133.6 L Chloride 111 H Carbon Dioxide 11 L Creatinine 1.27 H Est GFR ( Amer) 51 L Est GFR (Non-Af Amer) 42 L AST 12 L Alkaline Phosphatase 130 H Lipase 399.2 H Urine Protein 100 H Discharge <GERTRUDE JOHNSON - Last Filed: 04/13/17 07:02> <GINGER GOMES - Last Filed: 04/13/17 21:58> - Discharge Clinical Impression: Pneumonia Qualifiers: Pneumonia type: due to unspecified organism Laterality: right Lung location: unspecified part of lung Qualified Code(s): J18.9 - Pneumonia, unspecified organism Condition: Stable Disposition: HOME-SNF (ED ONLY) Instructions: Pneumonia ([facility]) Additional Instructions: Return immediately for any new or worsening symptoms. Follow up with primary care provider, call tomorrow to make followup appointment. Drink plenty of fluids. Prescriptions: Guaifenesin/Dextromethorphan [Robitussin Cough-Chest Dm Liq] 5 ml PO Q6 PRN #60 ml PRN Reason: Levofloxacin [Levaquin 750 mg Tablet] 750 mg PO DAILY #10 tablet
--- NOTE | 2017-04-13 04:28 | RADIOLOGY REPORT (SQ) ---
EXAM DESCRIPTION: CHEST SINGLE VIEW COMPLETED DATE/TIME: 04/13/2017 4:10 am REASON FOR STUDY: cough, sob COMPARISON: Chest x-ray 03/15/2017, 12/22/2016. EXAM PARAMETERS: NUMBER OF VIEWS: One view. TECHNIQUE: Single frontal radiographic view of the chest acquired. RADIATION DOSE: NA LIMITATIONS: None. FINDINGS: LUNGS AND PLEURA: Interval development of airspace opacity at the right perihilar region. No pleural effusion or pneumothorax. MEDIASTINUM AND HILAR STRUCTURES: Contour normal. HEART AND VASCULAR STRUCTURES: Heart normal in size. No overt vascular congestion. BONES: No acute findings. HARDWARE: Right-sided Port-A-Cath with the tip overlying the region of the SVC. IMPRESSION: Interval development of airspace opacity at the right perihilar region, may represent pn eumonia. Radiographic follow-up recommended to document resolution and exclude a different etiology. TECHNICAL DOCUMENTATION: JOB ID: [id number] [place]-64 2010 [employer]- All Rights Reserved
[2017-04-13 05:15] LABS: ABSOLUTE LYMPHOCYTES (AUTO) 0.7 10^3/uL (0.5-4.7); ABSOLUTE MONOCYTES (AUTO) 0.8 10^3/uL (0.1-1.4); ABSOLUTE NEUT (AUTO) 11.4 10^3/uL (1.7-8.2); EOSINOPHILS % (AUTO) 0.1 % (0-6); HEMATOCRIT 29.4 % (36.0-47.0); HEMOGLOBIN 9.8 g/dL (12.0-15.5); LYMPHOCYTES % (AUTO) 5.3 % (13-45); MEAN CORPUSCULAR HEMOGLOBIN 33.6 pg (27.0-33.4); MEAN CORPUSCULAR HGB CONC 33.5 g/dL (32.0-36.0); MEAN CORPUSCULAR VOLUME 100 fl (80-97); MONOCYTES % (AUTO) 6.1 % (3-13); PLATELET COUNT 168 10^3/uL (150-450); RED BLOOD COUNT 2.93 10^6/uL (3.72-5.28); SEGMENTED NEUTROPHILS % (AUTO) 88.5 % (42-78); TOTAL CELLS COUNTED % (AUTO) 100 %; WHITE BLOOD COUNT 12.9 10^3/uL (4.0-10.5)
[2017-04-13] MEDS ORDERED: LEVOFLOXACIN 500 MG/D5W RTU 500 MG/100 ML RTUPB IV ONE (05:23)
[2017-04-13 05:30] LABS: ALANINE AMINOTRANSFERASE 23 U/L (9-52); ALBUMIN 3.7 g/dL (3.5-5.0); ALKALINE PHOSPHATASE 130 U/L (38-126); ANION GAP 12 (5-19); ASPARTATE AMINO TRANSFERASE 12 U/L (14-36); BILIRUBIN,DIRECT 0.2 mg/dL (0.0-0.4); BILIRUBIN,TOTAL 0.3 mg/dL (0.2-1.3); BLOOD UREA NITROGEN 19 mg/dL (7-20); CALCIUM 9.2 mg/dL (8.4-10.2); CARBON DIOXIDE 11 mmol/L (22-30); CHLORIDE 111 mmol/L (98-107); GLUCOSE 100 mg/dL (75-110); LIPASE 399.2 U/L (23-300); POTASSIUM 3.6 mmol/L (3.6-5.0); SODIUM 133.6 mmol/L (137-145); TOTAL PROTEIN 6.3 g/dL (6.3-8.2)
[2017-04-13 05:43] LABS: A TYPE INFLUENZA AG NEGATIVE (NEGATIVE); B INFLUENZA AG NEGATIVE (NEGATIVE)
[2017-04-13] MEDS ORDERED: ALBUTEROL SULFATE HFA (90 MCG/PUFF) 8 GM MDI (1 MDI/ER DISP) IH PRN (06:44)
[2017-04-13 07:28] LABS: APPEARANCE,URINE CLEAR; BILIRUBIN,URINE NEGATIVE (NEGATIVE); COLOR,URINE YELLOW; GLUCOSE, URINE NEGATIVE (NEGATIVE); KETONES,URINE NEGATIVE (NEGATIVE); LEUKOCYTE ESTERASE,URINE NEGATIVE (NEGATIVE); NITRITE,URINE NEGATIVE (NEGATIVE); PROTEIN,URINE 100 mg/dL (NEGATIVE); URINE SPECIFIC GRAVITY 1.015; UROBILINOGEN,URINE NEGATIVE mg/dL (<2.0)
[2017-04-13 07:59] VITALS: BP 92/52
== END 2017-04-13 08:41 ==
LOC: ER 03:09
DX: J18.9 Pneumonia, unspecified organism (principal); J44.9 Chronic obstructive pulmonary disease, unspecified; R05 Cough; R50.9 Fever, unspecified; M79.1 Myalgia; Z87.891 Personal history of nicotine dependence
CPT/HCPCS: 36591; 94640; 99284; 96375; 96365; 36415; 83690; 85025; 80053; 81001; 87804; 71045; A9270 ×2; J1956; J2405; J3490

== ENCOUNTER 2017-04-13 18:28 | Inpatient (IN) | payer MEDICARE, MEDICAID ==
[2017-04-13] MEDS ORDERED: NORMAL SALINE 500 ML IV ONE (18:43)
--- NOTE | 2017-04-13 19:10 | ER Document Report ---
ED General - General Mode of Arrival: Ambulatory Information source: Patient TRAVEL OUTSIDE OF THE [place] IN LAST 30 DAYS: No <GINGER GOMES - Last Filed: 04/13/17 23:35> <ALEENA WHITE - Last Filed: 04/14/17 03:01> - General Chief Complaint: Nausea/Vomiting Stated Complaint: AMS Time Seen by Provider: 04/13/17 18:35 Notes: Patient is a 66 year old female that presents to the emergency department today with complaints of "pain all over" along with 3-4 days of productive cough, fever, and chills. Patient was seen here earlier today and was diagnosed with pneumonia. History is limited. (GINGER GOMES) - Related Data Allergies/Adverse Reactions: codeine Allergy (Verified 03/15/17 15:38) naproxen Allergy (Verified 03/15/17 15:38) pregabalin [From Lyrica] Allergy (Verified 03/15/17 15:38) Past Medical History - General Information source: Patient - Social History Smoking Status: Never Smoker Cigarette use (# per day): No Chew tobacco use (# tins/day): No Frequency of alcohol use: None Drug Abuse: None Lives with: Family Family History: Reviewed & Not Pertinent Patient has suicidal ideation: No Patient has homicidal ideation: No Pulmonary Medical History: Reports: Hx COPD GI Medical History: Reports: Hx Crohn's Disease, Hx Gastroesophageal Reflux Disease, Hx Colonoscopy, Hx Endoscopy Musculoskeltal Medical History: Reports Hx Arthritis, Reports Hx Musculoskeletal Deformity Skin Medical History: Reports Hx MRSA Psychiatric Medical History: Reports: Hx Depression Past Surgical History: Reports: Hx Abdominal Surgery - ileostomy, Hx Cholecystectomy, Hx Colostomy, Hx Hysterectomy, Hx Orthopedic Surgery - feet, Hx Rectal Surgery - removed, Other - Total colectomy - Immunizations Hx Diphtheria, Pertussis, Tetanus Vaccination: No Hx Pneumococcal Vaccination: 12/23/15 <GINGER GOMES - Last Filed: 04/13/17 23:35> Review of Systems - Review of Systems Constitutional: No symptoms reported EENT: See HPI, Throat pain Cardiovascular: No symptoms reported Respiratory: See HPI, Cough Gastrointestinal: No symptoms reported Genitourinary: No symptoms reported Female Genitourinary: No symptoms reported Musculoskeletal: Joint pain - pain all over Skin: No symptoms reported Hematologic/Lymphatic: No symptoms reported Neurological/Psychological: No symptoms reported -: Yes All other systems reviewed and negative <GINGER GOMES - Last Filed: 04/13/17 23:35> Physical Exam <GINGER GOMES - Last Filed: 04/13/17 23:35> <ALEENA WHITE - Last Filed: 04/14/17 03:01> - Vital signs Vitals: Temp Pulse Resp BP Pulse Ox 99.5 F 84 18 93/55 L 98 04/13/17 18:36 04/13/17 18:36 04/13/17 18:36 04/13/17 18:36 04/13/17 18:36 - Notes Notes: Physical Exam: General: Alert, appears somewhat uncomfortable. HEENT: Normocephalic. Atraumatic. PERRL. Extraocular movements intact. Oropharynx clear. Dry mucous membranes. Neck: Supple. Non-tender. Respiratory: No respiratory distress. Decreased breath sounds in the right base. Cardiovascular: Regular rate and rhythm. Abdominal: Abdomen distended. RLQ tenderness with palpation. Ostomy bag with green output. Normal Bowel Sounds. Back: Non-tender. No deformity or step off. Extremities: Moves all four extremities. Upper extremities: Normal inspection. Normal ROM. Lower extremities: Normal inspection. No edema. Normal ROM. Neurological: Normal cognition. AAOx4. Normal speech. Psychological: Confused, likely at baseline. Skin: Warm. Dry. Normal color. (GINGER GOMES) Course - Laboratory Result Diagrams: 04/13/17 19:55 04/13/17 19:55 <GINGER GOMES - Last Filed: 04/13/17 23:35> - Laboratory Result Diagrams: 04/13/17 19:55 04/13/17 19:55 - Diagnostic Test Radiology reviewed: Image reviewed, Reports reviewed <ALEENA WHITE - Last Filed: 04/14/17 03:01> - Re-evaluation Re-evalutation: Patient is a 66-year-old female who comes in with fever, hypoxia. Patient has been vomiting at home and unable to keep down antibiotics that were prescribed yesterday for pneumonia. CT of chest abdomen and pelvis showing multifocal pneumonia. Patient's white count was 26. Concern for sepsis. Cultures have been sent, antibiotics have been initiated, fluids have been ordered. Patient is improved with fluids and antibiotics. She is better now that her fever is down. Patient was discussed with Dr. Munroe will be admitted to the [facility]. ( ALEENA WHITE) - Vital Signs Vital signs: Temp Pulse Resp BP Pulse Ox 99.0 F 62 18 94/49 L 100 04/14/17 02:25 04/14/17 02:25 04/14/17 02:25 04/14/17 02:25 04/14/17 02:25 - Laboratory Laboratory results interpreted by me: 04/13/17 04/13/17 04/13/17 19:55 19:55 19:55 WBC 26.1 H D RBC 3.05 L Hgb 10.0 L Hct 30.4 L MCV 100 H RDW 15.7 H Seg Neuts % (Manual) 82 H Band Neutrophils % 8 H Lymphocytes % (Manual) 4 L Abs Neuts (Manual) 23.5 H Abs Monocytes (Manual) 1.6 H VBG pH 7.28 L VBG pCO2 29.3 L VBG HCO3 13.5 L Sodium 131.1 L Carbon Dioxide 13 L BUN 21 H Creatinine 1.34 H Est GFR ( Amer) 48 L Est GFR (Non-Af Amer) 40 L Direct Bilirubin 0.5 H AST 13 L Total Protein 6.2 L Albumin 3.4 L Critical Care Note - Critical Care Note Total time excluding time spent on procedures (mins): 35 - Evaluation and management of altered mental status, hypoxia, diagnosis of pneumonia, coordination of admission <ALEENA WHITE - Last Filed: 04/14/17 03:01> Discharge <GINGER GOMES - Last Filed: 04/13/17 23:35> - Discharge Admitting Provider: [facility] Unit Admitted: [facility] <ALEENA WHITE - Last Filed: 04/14/17 03:01> - Discharge Clinical Impression: Nausea Sepsis Qualifiers: Sepsis type: sepsis due to unspecified organism Qualified Code(s): A41.9 - Sepsis, unspecified organism Pneumonia Qualifiers: Pneumonia type: due to unspecified organism Laterality: right Lung location: lower lobe of lung Qualified Code(s): J18.1 - Lobar pneumonia, unspecified organism Condition: Stable Disposition: ADMITTED INPATIENT Scribe Attestation: 04/14/17 03:01 I personally performed the services described in the documentation, reviewed and edited the documentation which was dictated to the scribe in my presence, and it accurately records my words and actions. (ALEENA WHITE
--- NOTE | 2017-04-13 19:43 | RADIOLOGY REPORT (SQ) ---
EXAM DESCRIPTION: CHEST SINGLE VIEW COMPLETED DATE/TIME: 04/13/2017 7:33 pm REASON FOR STUDY: fever, cough COMPARISON: 04/13/2017 at 0403 hours. 03/15/2017. EXAM PARAMETERS: NUMBER OF VIEWS: One view. TECHNIQUE: Single frontal radiographic view of the chest acquired. RADIATION DOSE: NA LIMITATIONS: None. FINDINGS: LUNGS AND PLEURA: Again seen is right perihilar infiltrate. Left lung clear. No pleural effusion. No pneumothorax. MEDIASTINUM AND HILAR STRUCTURES: No masses. Contour normal. HEART AND VASCULAR STRUCTURES: Heart normal in size. Normal vasculature. BONES: No acute findings. HARDWARE: Vascular access port. OTHER: No other significant finding. IMPRESSION: RIGHT PERIHILAR INFILTRATE. NO CHANGE. TECHNICAL DOCUMENTATION: JOB ID: [id number] [employer]- All Rights Reserved
[2017-04-13 20:11] LABS: HEMATOCRIT 30.4 % (36.0-47.0); MEAN CORPUSCULAR HEMOGLOBIN 32.8 pg (27.0-33.4); MEAN CORPUSCULAR HGB CONC 32.9 g/dL (32.0-36.0); MEAN CORPUSCULAR VOLUME 100 fl (80-97); PLATELET COUNT 191 10^3/uL (150-450); RED BLOOD COUNT 3.05 10^6/uL (3.72-5.28); RED CELL DISTRIBUTION WIDTH 15.7 % (11.5-14.0)
[2017-04-13 20:12] LABS: WHITE BLOOD COUNT 26.1 10^3/uL (4.0-10.5)
[2017-04-13 20:18] LABS: INTERNATIONAL RATION (INR) 1.14; PROTHROMBIN TIME 15.4 SEC (11.4-15.4)
[2017-04-13 20:19] LABS: VENOUS BLOOD BASE EXCESS -11.9 mmol/L; VENOUS BLOOD HCO3 13.5 mmol/L (20-32); VENOUS BLOOD PCO2 29.3 mmHg (35-63); VENOUS BLOOD PH 7.28 (7.30-7.42)
[2017-04-13 20:33] LABS: ALANINE AMINOTRANSFERASE 26 U/L (9-52); ALBUMIN 3.4 g/dL (3.5-5.0); ALKALINE PHOSPHATASE 105 U/L (38-126); ANION GAP 11 (5-19); ASPARTATE AMINO TRANSFERASE 13 U/L (14-36); BILIRUBIN,DIRECT 0.5 mg/dL (0.0-0.4); BILIRUBIN,TOTAL 0.5 mg/dL (0.2-1.3); BLOOD UREA NITROGEN 21 mg/dL (7-20); CALCIUM 9.5 mg/dL (8.4-10.2); CARBON DIOXIDE 13 mmol/L (22-30); CHLORIDE 107 mmol/L (98-107); GLUCOSE 99 mg/dL (75-110); POTASSIUM 3.8 mmol/L (3.6-5.0); SODIUM 131.1 mmol/L (137-145); TOTAL PROTEIN 6.2 g/dL (6.3-8.2)
[2017-04-13 20:34] LABS: ABSOLUTE MONOCYTES # (MANUAL) 1.6 10^3/uL (0.1-1.4); ABSOLUTE NEUTROPHILS# (MANUAL) 23.5 10^3/uL (1.7-8.2); BAND NEUTROPHILS % (MANUAL) 8 % (3-5); BASOPHILS % (MANUAL) 0 % (0-2); EOSINOPHILS % (MANUAL) 0 % (0-6); LYMPHOCYTES % (MANUAL) 4 % (13-45); MONOCYTES % (MANUAL) 6 % (3-13); SEGMENTED NEUTROPHILS % (MAN) 82 % (42-78); TOTAL CELLS COUNTED 100
[2017-04-13 20:37] LABS: ANISOCYTOSIS SLIGHT; PLATELET COMMENT ADEQUATE; POIKILOCYTOSIS SLIGHT; POLYCHROMASIA SLIGHT; TEAR DROP CELLS SLIGHT
[2017-04-13] MEDS ORDERED: NORMAL SALINE 1000 ML 1,000 ML IV ONE (21:53)
[2017-04-13 22:05] LABS: A TYPE INFLUENZA AG NEGATIVE (NEGATIVE); B INFLUENZA AG NEGATIVE (NEGATIVE)
[2017-04-13] MEDS ORDERED: FENTANYL CITRATE INJ/PF 100 MCG/2 ML AMPUL IV ONE (22:37)
--- NOTE | 2017-04-13 22:46 | RADIOLOGY REPORT (SQ) ---
EXAM DESCRIPTION: CTA CHEST COMPLETED DATE/TIME: 04/13/2017 10:22 pm REASON FOR STUDY: pain, N/V, hypoxia COMPARISON: Chest x-ray 04/13/2017. CT abdomen and pelvis 04/13/2017. TECHNIQUE: CT scan of the chest performed using helical scanning technique with dynamic intravenous contrast injection. Images reviewed with lung, soft tissue and bone windows. Reconstructed coronal and sagittal MPR images reviewed. Additional 3 dimensional post-processing performed to develop Maximal Intensity Projection images (PR P). All images stored on PACS. All CT scanners at this facility use dose modulation, iterative reconstruction, and/or weight based d osing when appropriate to reduce radiation dose to as low as reasonably achievable (ALARA). [facility]: Dose Right [facility]: CareDose [facility]: Dose Right [facility]: Teradose 4D [facility]: [employer] CONTRAST TYPE AND DOSE: contrast/concentration: Isovue 370.00 mg/ml; Total Contrast Delivered: 57.0 ml; Total Saline Delivered: 68.1 ml Contrast bolus optimized for the pulmonary arteries. Not diagnostic for the aorta. RENAL FUNCTION: Creatinine 1.34 RADIATION DOSE: . LIMITATIONS: None. FINDINGS: LUNGS AND PLEURA: Airspace opacities are seen within the right lower lobe. No pleural eff usion or pneumothorax. AORTA AND GREAT VESSELS: No thoracic aortic aneurysm. Contrast bolus not optimized for the aorta. HEART: No pericardial effusion. No significant coronary artery calcifications. PULMONARY ARTERIES: No emboli visualized in the main pulmonary arteries or the segmental branches. HILAR AND MEDIASTINAL STRUCTURES: Right hilar lymph node measuring 17 mm. Subcarinal lymph node sara uring 14 mm. Left hilar lymph node measuring 10 mm. HARDWARE: Right-sided Port-A-Cath with the tip at the right atrium. UPPER ABDOMEN: See separate report of the CT of the abdomen. THYROID AND OTHER SOFT TISSUES: No masses. No adenopathy. BONES: Degenerative changes in the spine. 3D MIPS: Confirm above findings. IMPRESSION: 1. No pulmonary emboli. 2. Airspace opacities within the right lower lobe, may represent multifocal pneumonia. Radiographic follow-up recommended to ensure resolution exclude underlying neoplasm. 3. Mild mediastinal and hilar adenopathy. COMMENT: Quality ID # [id number]: Final reports with documentation of one or more dose reduction techniques (e.g., Automated exposure control, adjustment of the mA and/or kV according to patient size, use of iterative reconstruction technique) TECHNICAL DOCUMENTATION: JOB ID: [id number] [place]-[id number] 2010 [employer]- All Rights Reserved
[2017-04-13] MEDS ORDERED: LEVOFLOXACIN 750 MG/D5W RTU 750 MG/150 ML RTUPB IV ONE (22:54)
[2017-04-13] MEDS ORDERED: VANCOMYCIN HCL INJ 1000 MG VIAL IV ONE (22:54)
[2017-04-13] MEDS ORDERED: CEFEPIME 2 GM/D5W RTU 2 GM/50 ML RTUPB IV ONE (22:54)
--- NOTE | 2017-04-13 22:57 | RADIOLOGY REPORT (SQ) ---
EXAM DESCRIPTION: CT ABD/PELVIS WITH IV ONLY COMPLETED DATE/TIME: 04/13/2017 10:22 pm REASON FOR STUDY: pain, N/V COMPARISON: CT chest 04/13/2017. CT abdomen and pelvis 03/18/2017, 06/28/2016. TECHNIQUE: CT scan of the abdomen and pelvis performed using helical scanning technique with dynamic intravenous contrast injection. No oral contrast. Images reviewed with lung, soft tissue, and bone windows. Reconstructed coronal and sagittal MPR images reviewed. Delayed images for evaluation of the urinary system also acquired. All images stored on PACS. All CT scanners at this facility use dose modulation, iterative reconstruction, and/or weight based d osing when appropriate to reduce radiation dose to as low as reasonably achievable (ALARA). [facility]: Dose Right [facility]: CareDose [facility]: Dose Right [facility]: Teradose 4D [facility]: [employer] CONTRAST TYPE AND DOSE: 57 mL Isovue 370 RENAL FUNCTION: Creatinine 1.34 RADIATION DOSE: CT Rad equipment meets quality standard of care and radiation dose reduction techniq ues were employed. CTDIvol: 6.6 - 14.3 mGy. DLP: 1665 mGy-cm.. LIMITATIONS: None. FINDINGS: LOWER CHEST: See separate report of the CT of the chest. LIVER: Enlarged measuring 19.3 cm in craniocaudal dimension. No masses. No dilated ducts. SPLEEN: Borderline enlarged measuring 13.4 cm in craniocaudal dimension. PANCREAS: No significant calcifications. No adjacent inflammation or peripancreatic fluid collections . Pancreatic duct not dilated. GALLBLADDER: Surgically absent. ADRENAL GLANDS: No significant masses or asymmetry. RIGHT KIDNEY AND URETER: No solid masses. No significant calcifications. No hydronephrosis or hyd roureter. LEFT KIDNEY AND URETER: No solid masses. No significant calcifications. No hydronephrosis or hydr oureter. AORTA AND VESSELS: No abdominal aortic aneurysm. RETROPERITONEUM: No retroperitoneal adenopathy, hemorrhage or masses. BOWEL AND PERITONEAL CAVITY: Postsurgical changes are seen at the bowel with a left lower quadrant os ashley. No dilated bowel loops or focal inflammatory changes. No free fluid or free air. APPENDIX: Surgically absent. PELVIS: The urinary bladder is decompressed. No pelvic mass. No free fluid. ABDOMINAL WALL: There is a left lower quadrant ostomy. BONES: Degenerative changes in the spine. IMPRESSION: 1. No acute findings. 2. Hepatomegaly. TECHNICAL DOCUMENTATION: JOB ID: [id number] [facility] Quality ID # [id number]: Final reports with documentation of one or more dose reduction techniques (e.g., Au tomated exposure control, adjustment of the mA and/or kV according to patient size, use of iterative reconstruction technique) 2010 [employer]- All Rights Reserved
[2017-04-13 23:48] LABS: APPEARANCE,URINE CLEAR; BILIRUBIN,URINE NEGATIVE (NEGATIVE); COLOR,URINE YELLOW; GLUCOSE, URINE NEGATIVE (NEGATIVE); KETONES,URINE TRACE mg/dL (NEGATIVE); LEUKOCYTE ESTERASE,URINE NEGATIVE (NEGATIVE); NITRITE,URINE NEGATIVE (NEGATIVE); PROTEIN,URINE NEGATIVE (NEGATIVE); URINE SPECIFIC GRAVITY 1.039; UROBILINOGEN,URINE NEGATIVE mg/dL (<2.0)
[2017-04-14] MEDS ORDERED: NORMAL SALINE 1000 ML 1,000 ML IV PRN (04:51)
[2017-04-14] MEDS ORDERED: ALBUTEROL SULFATE HFA (90 MCG/PUFF) 8 GM MDI (1 MDI/ER DISP) IH PRN (05:03)
[2017-04-14] MEDS ORDERED: GUAIFENESIN/D-METHORPHAN (200-20 MG) SYRUP 10 ML PO PRN (05:03)
[2017-04-14] MEDS ORDERED: GUAIFENESIN SYRP 200 MG/10 ML UDC PO PRN (05:03)
[2017-04-14] MEDS ORDERED: MAG HYDROX/AL HYDROX/SIMETH SUSP 30 ML UDCUP PO PRN (05:03)
[2017-04-14] MEDS ORDERED: CYANOCOBALAMIN (VITAMIN B-12) INJ 1000 MCG/1 ML VIAL IM SCH (05:15)
[2017-04-14 05:17] LABS: HEMATOCRIT 24.5 % (36.0-47.0); HEMOGLOBIN 8.2 g/dL (12.0-15.5); MEAN CORPUSCULAR HEMOGLOBIN 33.4 pg (27.0-33.4); MEAN CORPUSCULAR HGB CONC 33.4 g/dL (32.0-36.0); MEAN CORPUSCULAR VOLUME 100 fl (80-97); PLATELET COUNT 167 10^3/uL (150-450); RED BLOOD COUNT 2.44 10^6/uL (3.72-5.28); RED CELL DISTRIBUTION WIDTH 15.7 % (11.5-14.0); WHITE BLOOD COUNT 18.5 10^3/uL (4.0-10.5)
[2017-04-14] MEDS ORDERED: NORMAL SALINE 10 ML SDV (AFTER EACH USE) IV PRN (05:22)
[2017-04-14 05:43] LABS: ANION GAP 14 (5-19); BLOOD UREA NITROGEN 20 mg/dL (7-20); CALCIUM 8.3 mg/dL (8.4-10.2); CHLORIDE 111 mmol/L (98-107); GLUCOSE 90 mg/dL (75-110); SODIUM 135.2 mmol/L (137-145)
[2017-04-14] MEDS: DIPHENOXYLATE HCL/ATROP SULF 2.5-0.025 MG TABLET PO SCH ×5 (05:59→21:18)
[2017-04-14] MEDS ORDERED: (PENDING PHARMACY ID) (Lipase/Protease/Amylase [Creon Dr 12,000 Units Capsule] 1 EACH) PO SCH (06:00)
[2017-04-14] MEDS ORDERED: OXYCODONE HCL IR 5 MG TABLET PO ONE (06:30)
[2017-04-14 06:51] LABS: CARBON DIOXIDE 10 mmol/L (22-30); POTASSIUM 2.8 mmol/L (3.6-5.0)
[2017-04-14] MEDS ORDERED: ALBUTEROL SULFATE HFA (90 MCG/PUFF) 200 PUFF/8.5 GM MDI IH PRN (07:16)
[2017-04-14] MEDS ORDERED: LANSOPRAZOLE 30 MG TAB.RAP.DR PO ONE (08:00)
--- NOTE | 2017-04-14 08:02 | EKG REPORT ---
SEVERITY:- BORDERLINE ECG - SINUS RHYTHM PROBABLE LEFT ATRIAL ABNORMALITY BORDERLINE T ABNORMALITIES, ANT-LAT LEADS : Confirmed by: Doni Giang MD 14-Apr-2017 08:01:30
[2017-04-14] MEDS: CEFEPIME 1 GM/D5W RTU 1 GM/50 ML RTUPB IV SCH ×2 (09:36→21:19)
[2017-04-14] MEDS: ONDANSETRON HCL INJ/PF 4 MG/2 ML SDV IV PRN (09:37)
[2017-04-14] MEDS: POTASSIUM CHLORIDE 20 MEQ/15 ML UDCUP PO SCH ×2 (09:37→17:01)
[2017-04-14] MEDS: VENLAFAXINE HCL 75 MG TABLET PO SCH ×2 (09:38→21:19)
[2017-04-14] MEDS: DICYCLOMINE HCL 20 MG TABLET PO SCH ×4 (09:38→21:18)
[2017-04-14] MEDS: POTASSI CL 40 MEQ/NS 1L 1,000 ML IV PRN (09:39)
[2017-04-14] MEDS: ENOXAPARIN SODIUM INJ 40 MG/0.4 ML DISP.SYRIN SUBCUT SCH (09:40)
[2017-04-14] MEDS ORDERED: SENNOSIDES PO SCH (10:00)
[2017-04-14] MEDS ORDERED: OXYCODONE HCL IR 5 MG TABLET PO SCH (10:00)
[2017-04-14] MEDS ORDERED: LANSOPRAZOLE 30 MG TAB.RAP.DR PO SCH (10:00)
[2017-04-14] MEDS: NORMAL SALINE 10 ML SDV (SCHEDULED) IV SCH ×2 (10:28→21:19)
[2017-04-14] MEDS: OXYCODONE HCL IR 5 MG TABLET PO SCH ×2 (13:58→21:17)
[2017-04-14 14:51] LABS: ARTERIAL BLOOD BASE EXCESS -11.8 mmol/L; ARTERIAL BLOOD H2CO3 0.72 mmol/L (1.05-1.35); ARTERIAL BLOOD HCO3 12.6 mmol/L (20-26); ARTERIAL BLOOD O2 SATURATION 97.4 % (94-98); ARTERIAL BLOOD PH 7.34 (7.35-7.45); ARTERIAL BLOOD PO2 99.9 mmHg (80-100); ARTERIAL BLOOD TOTAL CO2 13.3 mmol/L (21-25)
[2017-04-14 14:58] LABS: ARTERIAL BLOOD FIO2 ROOM AIR
[2017-04-14] MEDS: ACETAMINOPHEN 325 MG TABLET PO PRN (17:00)
--- NOTE | 2017-04-14 20:37 | PDOC H&P ---
History of Present Illness Admission Date/PCP: 04/13/17 23:18 DOMINIQUE JOYA MD History of Present Illness: DONALD ALBRIGHT is a 66 year old female, She came to the emergency room for evaluation of fever cough generalized body aches and pain, she was in the emergency room earlier in the day when she was diagnosed with pneumonia, she was prescribed antibiotic and discharge back to assisted living facility. She returned back because of persistent body pains fever, chills, on the second visit she had a CAT scan of the chest, abdomen and pelvis with IV contrast, it confirmed right lower lobe pneumonia and also hepatomegaly otherwise the CAT scan of the abdomen and pelvis was negative she was also found to have severe leukocytosis with a left shift because of concern for sepsis it was felt that patient needed to be admitted to the hospital. She was recently admitted to this hospital for acute pancreatitis with associated Streptococcus pharyngitis. She has a history of total colectomy with ileostomy bag. She was also found to have metabolic acidosis with hypokalemia. Past Medical History Pulmonary Medical History: Reports: Chronic Obstructive Pulmonary Disease (COPD) GI Medical History: Reports: Crohn's Disease, Gastroesophageal Reflux Disease Musculoskeltal Medical History: Reports: Arthritis Psychiatric Medical History: Reports: Depression Past Surgical History Past Surgical History: Reports: Cholecystectomy, Colostomy, Hysterectomy, Orthopedic Surgery - feet, Other - Total colectomy Social History Lives with: Family Smoking Status: Never Smoker Frequency of Alcohol Use: None Hx Recreational Drug Use: No Drugs: None Hx Prescription Drug Abuse: No - Advance Directive Resuscitation Status: Full Code Family History Family History: Reviewed & Not Pertinent Parental Family History Reviewed: Yes Children Family History Reviewed: Yes Sibling(s) Family History Reviewed.: Yes Medication/Allergy Home Medications: Acetaminophen [Tylenol Extra Strength 500 mg Tablet] 1 tab PO Q4HP PRN 03/15/17 Albuterol Sulfate [Ventolin Hfa] 2 puff IH Q6HP PRN 03/15/17 Cyanocobalamin (Vitamin B-12) [Vitamin B-12 Inj 1000 Mcg/1 ml Vial] 1,000 mcg IM .MONTHLY 03/15/17 Dicyclomine HCl [Bentyl 20 mg Tablet] 20 mg PO QID 03/15/17 Diphenoxylate HCl/Atrop Sulf [Lomotil 2.5 mg Tablet] 1 tab PO Q4HWA 03/15/17 Ergocalciferol (Vitamin D2) [Vitamin D2] 50,000 unit PO TH@1000 03/15/17 Guaifenesin [Tussin] 10 ml PO Q6HP PRN 03/15/17 Lipase/Protease/Amylase [Creon Dr 12,000 Units Capsule] 1 each PO Q8 03/15/17 Mag Hydrox/Al Hydrox/Simeth [Maalox Suspension] 30 ml PO Q6HP PRN 03/15/17 Omeprazole 40 mg PO DAILY 03/15/17 Ondansetron [Zofran Odt 4 mg Tablet] 1 tab PO Q8HP PRN 03/15/17 Potassium Chloride [Kaon-Cl 20 Meq/15 ml Udcup] 20 meq PO BID 03/15/17 Sennosides [Senokot] 34.4 mg PO Q12 03/15/17 Trazodone HCl [Desyrel 50 mg Tablet] 25 mg PO QHS 03/15/17 Venlafaxine HCl [Effexor 75 mg Tablet] 75 mg PO Q12 03/15/17 Amoxicillin Trihydrate [Amoxil 250 mg Capsule] 250 mg PO Q8 #21 capsule Guaifenesin/Dextromethorphan [Robitussin Cough-Chest Dm Liq] 5 ml PO Q6 PRN #60 ml 04/13/17 Levofloxacin [Levaquin 750 mg Tablet] 750 mg PO DAILY #10 tablet 04/13/17 Oxycodone HCl [Oxycodone HCl] 5 mg PO TID 04/14/17 Allergies/Adverse Reactions: codeine Allergy (Verified 03/15/17 15:38) naproxen Allergy (Verified 03/15/17 15:38) pregabalin [From Lyrica] Allergy (Verified 03/15/17 15:38) Review of Systems Constitutional: PRESENT: chills, fatigue, fever(s), headache(s) Eyes: ABSENT: visual disturbances Ears: ABSENT: hearing changes Cardiovascular: ABSENT: chest pain, dyspnea on exertion, edema, orthropnea, palpitations Respiratory: PRESENT: cough, dyspnea. ABSENT: hemoptysis Gastrointestinal: ABSENT: abdominal pain, constipation, diarrhea, hematemesis, hematochezia, nausea, vomiting Genitourinary: ABSENT: dysuria, hematuria Musculoskeletal: ABSENT: joint swelling Integumentary: ABSENT: rash, wounds Neurological: ABSENT: abnormal gait, abnormal speech, confusion, dizziness, focal weakness, syncope Psychiatric: ABSENT: anxiety, depression, homidical ideation, suicidal ideation Endocrine: ABSENT: cold intolerance, heat intolerance, menstrual abnormalities, polydipsia, polyuria Hematologic/Lymphatic: ABSENT: easy bleeding, easy bruising, lymphadenopathy Physical Exam Vital Signs: Temp Pulse Resp BP Pulse Ox 98.2 F 85 18 100/41 L 100 04/14/17 16:00 04/14/17 16:00 04/14/17 16:00 04/14/17 16:00 04/14/17 16:00 Intake & Output 04/13/17 04/14/17 04/15/17 06:59 06:59 06:59 Intake Total 400 900 Output Total 400 300 Balance 0 600 Weight 47.4 kg General appearance: PRESENT: mild distress Head exam: PRESENT: atraumatic, normocephalic. ABSENT: other Eye exam: PRESENT: conjunctiva pale. ABSENT: scleral icterus Mouth exam: PRESENT: dry mucosa Neck exam: PRESENT: full ROM Respiratory exam: PRESENT: rhonchi Cardiovascular exam: PRESENT: RRR, +S1, +S2 Pulses: PRESENT: normal dorsalis pedis pul, +2 pedal pulses bilateral Vascular exam: PRESENT: normal capillary refill GI/Abdominal exam: PRESENT: normal bowel sounds, soft Rectal exam: PRESENT: deferred Neurological exam: PRESENT: alert Skin exam: PRESENT: dry, intact, warm Results Laboratory Results: 04/14/17 04:33 04/14/17 04:33 04/13/17 04/14/17 04/14/17 23:30 04:33 04:33 WBC 18.5 H RBC 2.44 L Hgb 8.2 L Hct 24.5 L MCV 100 H MCH 33.4 MCHC 33.4 RDW 15.7 H Plt Count 167 Carbonic Acid HCO3/H2CO3 Ratio ABG pH ABG pCO2 ABG pO2 ABG HCO3 ABG O2 Saturation ABG Base Excess FiO2 Sodium 135.2 L Potassium 2.8 L* D Chloride 111 H Carbon Dioxide 10 L* Anion Gap 14 BUN 20 Creatinine 1.10 Est GFR ( Amer) > 60 Est GFR (Non-Af Amer) 50 L Glucose 90 Calcium 8.3 L Urine Color YELLOW Urine Appearance CLEAR Urine pH 6.0 Ur Specific [place] 1.039 Urine Protein NEGATIVE Urine Glucose (UA) NEGATIVE Urine Ketones TRACE H Urine Blood NEGATIVE Urine Nitrite NEGATIVE Ur Leukocyte Esterase NEGATIVE Urine WBC (Auto) 2 Urine RBC (Auto) 0 04/14/17 14:30 WBC RBC Hgb Hct MCV MCH MCHC RDW Plt Count Carbonic Acid 0.72 L HCO3/H2CO3 Ratio 17:1 ABG pH 7.34 L ABG pCO2 24.0 L ABG pO2 99.9 ABG HCO3 12.6 L ABG O2 Saturation 97.4 ABG Base Excess -11.8 FiO2 ROOM AIR Sodium Potassium Chloride Carbon Dioxide Anion Gap BUN Creatinine Est GFR ( Amer) Est GFR (Non-Af Amer) Glucose Calcium Urine Color Urine Appearance Urine pH Ur Specific [place] Urine Protein Urine Glucose (UA) Urine Ketones Urine Blood Urine Nitrite Ur Leukocyte Esterase Urine WBC (Auto) Urine RBC (Auto) Impressions: Chest X-Ray 04/13/17 18:42 IMPRESSION: RIGHT PERIHILAR INFILTRATE. NO CHANGE. Abdomen/Pelvis CT 04/13/17 20:58 IMPRESSION: 1. No acute findings. 2. Hepatomegaly. Chest/Abdomen CTA 04/13/17 20:58 IMPRESSION: 1. No pulmonary emboli. 2. Airspace opacities within the right lower lobe, may represent multifocal pneumonia. Radiographic follow-up recommended to ensure resolution exclude underlying neoplasm. 3. Mild mediastinal and hilar adenopathy. Assessment & Plan - Diagnosis (1) Right lower lobe pneumonia Qualifiers: Pneumonia type: due to unspecified organism Qualified Code(s): J18.1 - Lobar pneumonia, unspecified organism Is this a current diagnosis for this admission?: Yes Plan: She is admitted, started on IV cefepime, Levaquin to cover community-acquired pathogens potentia pathogens that causes pneumonia (2) Metabolic acidosis Is this a current diagnosis for this admission?: Yes (3) Hypokalemia Is this a current diagnosis for this admission?: Yes (4) Acute kidney injury Is this a current diagnosis for this admission?: Yes (5) Hyponatremia Is this a current diagnosis for this admission?: Yes
[2017-04-14] MEDS: TRAZODONE HCL 50 MG TABLET PO SCH (21:18)
[2017-04-15] MEDS: POTASSI CL 40 MEQ/NS 1L 1,000 ML IV PRN ×2 (04:20→18:37)
[2017-04-15] MEDS: DIPHENOXYLATE HCL/ATROP SULF 2.5-0.025 MG TABLET PO SCH ×5 (05:32→21:40)
[2017-04-15] MEDS: OXYCODONE HCL IR 5 MG TABLET PO SCH ×3 (05:32→21:41)
[2017-04-15] MEDS: LANSOPRAZOLE 30 MG TAB.RAP.DR PO SCH (05:32)
[2017-04-15 06:08] LABS: MEAN CORPUSCULAR HGB CONC 32.8 g/dL (32.0-36.0); MEAN CORPUSCULAR VOLUME 101 fl (80-97); PLATELET COUNT 183 10^3/uL (150-450); RED BLOOD COUNT 2.28 10^6/uL (3.72-5.28); RED CELL DISTRIBUTION WIDTH 15.6 % (11.5-14.0); WHITE BLOOD COUNT 14.6 10^3/uL (4.0-10.5)
[2017-04-15 06:17] LABS: HEMOGLOBIN 7.5 g/dL (12.0-15.5)
[2017-04-15 06:27] LABS: ANION GAP 7 (5-19); BLOOD UREA NITROGEN 18 mg/dL (7-20); CALCIUM 8.5 mg/dL (8.4-10.2); CARBON DIOXIDE 15 mmol/L (22-30); CHLORIDE 119 mmol/L (98-107); GLUCOSE 96 mg/dL (75-110); SODIUM 141.3 mmol/L (137-145)
[2017-04-15] MEDS: DICYCLOMINE HCL 20 MG TABLET PO SCH ×4 (09:10→21:43)
[2017-04-15] MEDS: ACETAMINOPHEN 325 MG TABLET PO PRN ×2 (09:10→16:11)
[2017-04-15] MEDS: NORMAL SALINE 10 ML SDV (SCHEDULED) IV SCH ×2 (09:43→23:55)
[2017-04-15] MEDS: ENOXAPARIN SODIUM INJ 40 MG/0.4 ML DISP.SYRIN SUBCUT SCH (09:44)
[2017-04-15] MEDS ORDERED: DIPHENHYDRAMINE HCL 25 MG CAPSULE ONE (09:53)
[2017-04-15] MEDS: POTASSIUM CHLORIDE 20 MEQ/15 ML UDCUP PO SCH ×2 (10:01→17:32)
[2017-04-15] MEDS: VENLAFAXINE HCL 75 MG TABLET PO SCH ×2 (10:01→21:39)
[2017-04-15] MEDS ORDERED: DIPHENHYDRAMINE HCL 25 MG CAPSULE PO PRN (10:27)
--- NOTE | 2017-04-15 11:25 | PDOC PROGRESS REPORT ---
Subjective Progress Note for:: 04/15/17 Subjective:: Is and was admitted in the hospital for the right lower lobe pneumonia and metabolic acidosis and electrolyte imbalance She is currently doing well patient's denied any chest pain denied any shortness of the breath Is denied any blood in the ileostomy bag patient hemoglobin is low Reason For Visit: SEPSIS, PNA Physical Exam Vital Signs: Temp Pulse Resp BP Pulse Ox 98.5 F 72 20 94/52 L 98 04/15/17 10:05 04/15/17 10:05 04/15/17 10:05 04/15/17 10:05 04/15/17 10:05 Intake & Output 04/14/17 04/15/17 04/16/17 06:59 06:59 06:59 Intake Total 400 3700 0 Output Total 400 300 Balance 0 3400 0 Weight 47.4 kg 47.8 kg General appearance: PRESENT: no acute distress, well-developed, well-nourished Head exam: PRESENT: atraumatic, normocephalic Eye exam: PRESENT: conjunctiva pink, EOMI, PERRLA. ABSENT: scleral icterus Ear exam: PRESENT: normal external ear exam Mouth exam: PRESENT: moist, tongue midline Neck exam: PRESENT: full ROM. ABSENT: carotid bruit, JVD, lymphadenopathy, thyromegaly Respiratory exam: PRESENT: clear to auscultation heydi Cardiovascular exam: PRESENT: RRR. ABSENT: diastolic murmur, rubs, systolic murmur Pulses: PRESENT: normal dorsalis pedis pul, +2 pedal pulses bilateral Vascular exam: PRESENT: normal capillary refill GI/Abdominal exam: PRESENT: normal bowel sounds, soft. ABSENT: distended, guarding, mass, organolmegaly, rebound, tenderness Additonal comments: Ileostomy bag is present Rectal exam: PRESENT: deferred Neurological exam: PRESENT: alert, awake, oriented to person, oriented to place , oriented to time, oriented to situation, CN II-XII grossly intact. ABSENT: motor sensory deficit Psychiatric exam: PRESENT: appropriate affect, normal mood. ABSENT: homicidal ideation, suicidal ideation Skin exam: PRESENT: dry, intact, warm. ABSENT: cyanosis, rash Results Laboratory Results: 04/15/17 05:00 04/15/17 05:00 04/14/17 04/15/17 04/15/17 14:30 05:00 05:00 WBC 14.6 H RBC 2.28 L Hgb 7.5 L Hct 23.0 L MCV 101 H MCH 33.0 MCHC 32.8 RDW 15.6 H Plt Count 183 Carbonic Acid 0.72 L HCO3/H2CO3 Ratio 17:1 ABG pH 7.34 L ABG pCO2 24.0 L ABG pO2 99.9 ABG HCO3 12.6 L ABG O2 Saturation 97.4 ABG Base Excess -11.8 FiO2 ROOM AIR Sodium 141.3 Potassium 4.0 Chloride 119 H Carbon Dioxide 15 L Anion Gap 7 BUN 18 Creatinine 1.02 Est GFR ( Amer) > 60 Est GFR (Non-Af Amer) 55 L Glucose 96 Calcium 8.5 Blood Type Antibody Screen 04/15/17 07:02 WBC RBC Hgb Hct MCV MCH MCHC RDW Plt Count Carbonic Acid HCO3/H2CO3 Ratio ABG pH ABG pCO2 ABG pO2 ABG HCO3 ABG O2 Saturation ABG Base Excess FiO2 Sodium Potassium Chloride Carbon Dioxide Anion Gap BUN Creatinine Est GFR ( Amer) Est GFR (Non-Af Amer) Glucose Calcium Blood Type A POSITIVE Antibody Screen NEGATIVE Impressions: Chest X-Ray 04/13/17 18:42 IMPRESSION: RIGHT PERIHILAR INFILTRATE. NO CHANGE. Abdomen/Pelvis CT 04/13/17 20:58 IMPRESSION: 1. No acute findings. 2. Hepatomegaly. Chest/Abdomen CTA 04/13/17 20:58 IMPRESSION: 1. No pulmonary emboli. 2. Airspace opacities within the right lower lobe, may represent multifocal pneumonia. Radiographic follow-up recommended to ensure resolution exclude underlying neoplasm. 3. Mild mediastinal and hilar adenopathy. Assessment & Plan - Diagnosis (1) Right lower lobe pneumonia Qualifiers: Pneumonia type: due to unspecified organism Qualified Code(s): J18.1 - Lobar pneumonia, unspecified organism Is this a current diagnosis for this admission?: Yes Plan: Continues IV antibiotic (2) Anemia Qualifiers: Anemia type: other cause Is this a current diagnosis for this admission?: Yes Plan: Get the stool for the guaiac and transfuse 1 unit of the blood (3) Hypokalemia Is this a current diagnosis for this admission?: Yes Plan: Replace potassium (4) Hyponatremia Is this a current diagnosis for this admission?: Yes (5) Metabolic acidosis Is this a current diagnosis for this admission?: Yes (6) Sepsis Qualifiers: Sepsis type: sepsis due to unspecified organism Qualified Code(s): A41.9 - Sepsis, unspecified organism Is this a current diagnosis for this admission?: Yes (7) COPD (chronic obstructive pulmonary disease) Qualifiers: COPD type: unspecified COPD Qualified Code(s): J44.9 - Chronic obstructive pulmonary disease, unspecified Is this a current diagnosis for this admission?: Yes (8) Urinary tract infection Is this a current diagnosis for this admission?: Yes - Time Time Spent with patient: 15-24 minutes Medications reviewed and adjusted accordingly: Yes Anticipated discharge: Other Within: Other - Inpatient Certification Medical Necessity: Need For IV Fluids, Need for IV Antibiotics Post Hospital Care: D/C Anthropologist Physical Documentation - Plan Summary Plan Summary: Continues to IV antibiotic transfused 1 unit of the blood
[2017-04-15] MEDS: CEFEPIME 1 GM/D5W RTU 1 GM/50 ML RTUPB IV SCH ×2 (12:29→21:45)
[2017-04-15 17:15] LABS: ABSOLUTE LYMPHOCYTES (AUTO) 1.6 10^3/uL (0.5-4.7); ABSOLUTE MONOCYTES (AUTO) 0.7 10^3/uL (0.1-1.4); ABSOLUTE NEUT (AUTO) 12.7 10^3/uL (1.7-8.2); BASOPHILS % (AUTO) 0.1 % (0-2); EOSINOPHILS % (AUTO) 0.3 % (0-6); HEMATOCRIT 28.3 % (36.0-47.0); HEMOGLOBIN 9.5 g/dL (12.0-15.5); LYMPHOCYTES % (AUTO) 10.8 % (13-45); MEAN CORPUSCULAR HEMOGLOBIN 32.4 pg (27.0-33.4); MEAN CORPUSCULAR HGB CONC 33.4 g/dL (32.0-36.0); MONOCYTES % (AUTO) 4.8 % (3-13); PLATELET COUNT 177 10^3/uL (150-450); RED BLOOD COUNT 2.92 10^6/uL (3.72-5.28); RED CELL DISTRIBUTION WIDTH 17.3 % (11.5-14.0); TOTAL CELLS COUNTED % (AUTO) 100 %; WHITE BLOOD COUNT 15.2 10^3/uL (4.0-10.5)
[2017-04-15 17:24] LABS: MEAN CORPUSCULAR VOLUME 97 fl (80-97)
[2017-04-15] MEDS: ONDANSETRON HCL INJ/PF 4 MG/2 ML SDV IV PRN (17:32)
[2017-04-15] MEDS: TRAZODONE HCL 50 MG TABLET PO SCH (21:40)
[2017-04-15] MEDS: LEVOFLOXACIN 750 MG/D5W RTU 750 MG/150 ML RTUPB IV SCH (21:43)
[2017-04-16] MEDS: ONDANSETRON HCL INJ/PF 4 MG/2 ML SDV IV PRN ×2 (05:47→13:46)
[2017-04-16] MEDS: LANSOPRAZOLE 30 MG TAB.RAP.DR PO SCH (06:21)
[2017-04-16] MEDS: OXYCODONE HCL IR 5 MG TABLET PO SCH ×3 (06:21→21:26)
[2017-04-16] MEDS: DIPHENOXYLATE HCL/ATROP SULF 2.5-0.025 MG TABLET PO SCH ×5 (06:22→21:27)
[2017-04-16 07:23] LABS: ANION GAP 9 (5-19); BLOOD UREA NITROGEN 14 mg/dL (7-20); CALCIUM 8.3 mg/dL (8.4-10.2); CARBON DIOXIDE 13 mmol/L (22-30); CHLORIDE 118 mmol/L (98-107); GLUCOSE 76 mg/dL (75-110); POTASSIUM 3.7 mmol/L (3.6-5.0); SODIUM 140.3 mmol/L (137-145)
[2017-04-16] MEDS: ENOXAPARIN SODIUM INJ 40 MG/0.4 ML DISP.SYRIN SUBCUT SCH (09:46)
[2017-04-16] MEDS: NORMAL SALINE 10 ML SDV (SCHEDULED) IV SCH ×2 (09:46→23:02)
[2017-04-16] MEDS: VENLAFAXINE HCL 75 MG TABLET PO SCH ×2 (09:47→21:26)
[2017-04-16] MEDS: CEFEPIME 1 GM/D5W RTU 1 GM/50 ML RTUPB IV SCH ×2 (09:47→21:46)
[2017-04-16] MEDS: POTASSIUM CHLORIDE 20 MEQ/15 ML UDCUP PO SCH ×2 (09:47→17:17)
[2017-04-16] MEDS: DICYCLOMINE HCL 20 MG TABLET PO SCH ×4 (09:48→21:27)
[2017-04-16 10:06] LABS: ABSOLUTE EOSINOPHILS # (AUTO) 0.1 10^3/uL (0.0-0.6); ABSOLUTE LYMPHOCYTES (AUTO) 1.1 10^3/uL (0.5-4.7); ABSOLUTE MONOCYTES (AUTO) 0.5 10^3/uL (0.1-1.4); ABSOLUTE NEUT (AUTO) 10.4 10^3/uL (1.7-8.2); BASOPHILS % (AUTO) 0.1 % (0-2); EOSINOPHILS % (AUTO) 0.5 % (0-6); HEMATOCRIT 27.2 % (36.0-47.0); HEMOGLOBIN 9.3 g/dL (12.0-15.5); LYMPHOCYTES % (AUTO) 9.2 % (13-45); MEAN CORPUSCULAR HEMOGLOBIN 33.3 pg (27.0-33.4); MEAN CORPUSCULAR HGB CONC 34.1 g/dL (32.0-36.0); MEAN CORPUSCULAR VOLUME 98 fl (80-97); MONOCYTES % (AUTO) 4.2 % (3-13); PLATELET COUNT 173 10^3/uL (150-450); RED BLOOD COUNT 2.79 10^6/uL (3.72-5.28); RED CELL DISTRIBUTION WIDTH 17.4 % (11.5-14.0); TOTAL CELLS COUNTED % (AUTO) 100 %
[2017-04-16] MEDS: ACETAMINOPHEN 325 MG TABLET PO PRN ×2 (11:10→17:18)
--- NOTE | 2017-04-16 11:57 | PDOC PROGRESS REPORT ---
Subjective Progress Note for:: 04/16/17 Subjective:: Patient is currently doing well Patient's lipase was slightly elevated Since guaiac stool is positive received the 1 unit of the blood She denied any chest pain denied any shortness of the breath except the complaint of some epigastric discomfort with the radiating to the back Reason For Visit: SEPSIS, PNA Physical Exam Vital Signs: Temp Pulse Resp BP Pulse Ox 98.9 F 91 16 98/49 L 100 04/16/17 03:36 04/16/17 07:00 04/16/17 03:36 04/16/17 03:36 04/16/17 03:36 Intake & Output 04/15/17 04/16/17 04/17/17 06:59 06:59 06:59 Intake Total 3700 4124 Output Total 300 1 Balance 3400 4123 Weight 47.8 kg General appearance: PRESENT: no acute distress, well-developed, well-nourished Head exam: PRESENT: atraumatic, normocephalic Eye exam: PRESENT: conjunctiva pink, EOMI, PERRLA. ABSENT: scleral icterus Ear exam: PRESENT: normal external ear exam Mouth exam: PRESENT: moist, tongue midline Neck exam: PRESENT: full ROM. ABSENT: carotid bruit, JVD, lymphadenopathy, thyromegaly Respiratory exam: PRESENT: clear to auscultation heydi Cardiovascular exam: PRESENT: RRR. ABSENT: diastolic murmur, rubs, systolic murmur Pulses: PRESENT: normal dorsalis pedis pul, +2 pedal pulses bilateral Vascular exam: PRESENT: normal capillary refill GI/Abdominal exam: PRESENT: normal bowel sounds, soft. ABSENT: distended, guarding, mass, organolmegaly, rebound, tenderness Additonal comments: Ileostomy bag is present Rectal exam: PRESENT: deferred Neurological exam: PRESENT: alert, awake, oriented to person, oriented to place , oriented to time, oriented to situation, CN II-XII grossly intact. ABSENT: motor sensory deficit Psychiatric exam: PRESENT: appropriate affect, normal mood. ABSENT: homicidal ideation, suicidal ideation Skin exam: PRESENT: dry, intact, warm. ABSENT: cyanosis, rash Results Laboratory Results: 04/16/17 09:34 04/16/17 05:55 04/15/17 04/15/17 04/15/17 17:00 17:00 17:00 WBC 15.2 H RBC 2.92 L Hgb 9.5 L Hct 28.3 L MCV 97 D MCH 32.4 MCHC 33.4 RDW 17.3 H Plt Count 177 Seg Neutrophils % 84.0 H Lymphocytes % 10.8 L Monocytes % 4.8 Eosinophils % 0.3 Basophils % 0.1 Absolute Neutrophils 12.7 H Absolute Lymphocytes 1.6 Absolute Monocytes 0.7 Absolute Eosinophils 0.0 Absolute Basophils 0.0 Sodium Potassium Chloride Carbon Dioxide Anion Gap BUN Creatinine Est GFR ( Amer) Est GFR (Non-Af Amer) Glucose Calcium Lipase 831.2 H Stool Occult Blood POSITIVE 04/16/17 04/16/17 04/16/17 05:55 05:55 09:34 WBC 12.0 H RBC 2.79 L Hgb 9.3 L Hct 27.2 L MCV 98 H MCH 33.3 MCHC 34.1 RDW 17.4 H Plt Count 173 Seg Neutrophils % 86.0 H Lymphocytes % 9.2 L Monocytes % 4.2 Eosinophils % 0.5 Basophils % 0.1 Absolute Neutrophils 10.4 H Absolute Lymphocytes 1.1 Absolute Monocytes 0.5 Absolute Eosinophils 0.1 Absolute Basophils 0.0 Sodium 140.3 Potassium 3.7 Chloride 118 H Carbon Dioxide 13 L Anion Gap 9 BUN 14 Creatinine 0.84 Est GFR ( Amer) > 60 Est GFR (Non-Af Amer) > 60 Glucose 76 Calcium 8.3 L Lipase 811.3 H Stool Occult Blood 04/14/17 04:07 Nasophary ([facility] Only) MRSA Surveillance Culture - Final NO MRSA RECOVERED Impressions: Chest X-Ray 04/13/17 18:42 IMPRESSION: RIGHT PERIHILAR INFILTRATE. NO CHANGE. Abdomen/Pelvis CT 04/13/17 20:58 IMPRESSION: 1. No acute findings. 2. Hepatomegaly. Chest/Abdomen CTA 04/13/17 20:58 IMPRESSION: 1. No pulmonary emboli. 2. Airspace opacities within the right lower lobe, may represent multifocal pneumonia. Radiographic follow-up recommended to ensure resolution exclude underlying neoplasm. 3. Mild mediastinal and hilar adenopathy. Assessment & Plan - Diagnosis (1) Right lower lobe pneumonia Qualifiers: Pneumonia type: due to unspecified organism Qualified Code(s): J18.1 - Lobar pneumonia, unspecified organism Is this a current diagnosis for this admission?: Yes Plan: Continues IV antibiotic (2) Anemia Qualifiers: Anemia type: other cause Is this a current diagnosis for this admission?: Yes Plan: Consult the GI for further evaluations (3) Hypokalemia Is this a current diagnosis for this admission?: Yes Plan: Replace potassium (4) Hyponatremia Is this a current diagnosis for this admission?: Yes (5) Metabolic acidosis Is this a current diagnosis for this admission?: Yes (6) Sepsis Qualifiers: Sepsis type: sepsis due to unspecified organism Qualified Code(s): A41.9 - Sepsis, unspecified organism Is this a current diagnosis for this admission?: Yes Plan: continue antibiotic (7) COPD (chronic obstructive pulmonary disease) Qualifiers: COPD type: unspecified COPD Qualified Code(s): J44.9 - Chronic obstructive pulmonary disease, unspecified Is this a current diagnosis for this admission?: Yes (8) Urinary tract infection Is this a current diagnosis for this admission?: Yes (9) Chronic pancreatitis Qualifiers: Pancreatitis type: other Qualified Code(s): K86.1 - Other chronic pancreatitis Is this a current diagnosis for this admission?: Yes Plan: Continues to monitor patient CT of the abdomen and pelvis did not see any inflammation's - Time Time Spent with patient: 15-24 minutes Medications reviewed and adjusted accordingly: Yes Anticipated discharge: Other Within: Other - Inpatient Certification Medical Necessity: Need For IV Fluids, Need for IV Antibiotics Post Hospital Care: D/C Stonecutter Assistant Documentation - Plan Summary Plan Summary: continue to current medication
[2017-04-16] MEDS: POTASSI CL 40 MEQ/NS 1L 1,000 ML IV PRN (15:33)
[2017-04-16] MEDS: TRAZODONE HCL 50 MG TABLET PO SCH (21:26)
[2017-04-16] MEDS: LEVOFLOXACIN 750 MG/D5W RTU 750 MG/150 ML RTUPB IV SCH (21:27)
[2017-04-17] MEDS: ACETAMINOPHEN 325 MG TABLET PO PRN ×2 (02:54→11:12)
[2017-04-17] MEDS: POTASSI CL 40 MEQ/NS 1L 1,000 ML IV PRN ×2 (04:30→17:16)
[2017-04-17] MEDS: DIPHENOXYLATE HCL/ATROP SULF 2.5-0.025 MG TABLET PO SCH ×5 (05:42→21:16)
[2017-04-17] MEDS: OXYCODONE HCL IR 5 MG TABLET PO SCH ×3 (05:43→21:17)
[2017-04-17] MEDS: LANSOPRAZOLE 30 MG TAB.RAP.DR PO SCH (05:44)
[2017-04-17 07:28] LABS: ANION GAP 6 (5-19); BLOOD UREA NITROGEN 16 mg/dL (7-20); CARBON DIOXIDE 15 mmol/L (22-30); CHLORIDE 120 mmol/L (98-107); GLUCOSE 86 mg/dL (75-110); POTASSIUM 4.3 mmol/L (3.6-5.0); SODIUM 141.4 mmol/L (137-145)
[2017-04-17] MEDS: DICYCLOMINE HCL 20 MG TABLET PO SCH ×4 (07:39→21:19)
[2017-04-17] MEDS: VENLAFAXINE HCL 75 MG TABLET PO SCH ×2 (09:33→21:19)
[2017-04-17] MEDS: ENOXAPARIN SODIUM INJ 40 MG/0.4 ML DISP.SYRIN SUBCUT SCH (09:33)
[2017-04-17] MEDS: CEFEPIME 1 GM/D5W RTU 1 GM/50 ML RTUPB IV SCH ×2 (09:34→21:21)
[2017-04-17] MEDS: NORMAL SALINE 10 ML SDV (SCHEDULED) IV SCH (09:34)
[2017-04-17] MEDS: POTASSIUM CHLORIDE 20 MEQ/15 ML UDCUP PO SCH ×2 (09:35→17:18)
[2017-04-17] MEDS: LEVOFLOXACIN 750 MG/D5W RTU 750 MG/150 ML RTUPB IV SCH (14:37)
[2017-04-17] MEDS: ONDANSETRON HCL INJ/PF 4 MG/2 ML SDV IV PRN (15:52)
[2017-04-17] MEDS: LIPASE/PROTEASE/AMYLASE 1 CAP CAPSULE.DR PO SCH (17:17)
[2017-04-17] MEDS: TRAZODONE HCL 50 MG TABLET PO SCH (21:19)
--- NOTE | 2017-04-17 23:01 | PDOC PROGRESS REPORT ---
Subjective Progress Note for:: 04/17/17 Subjective:: She was admitted for pneumonia, she developed acute pancreatitis and anemia requiring blood transfusion over the weekend she was seen by the bedside Reason For Visit: SEPSIS, PNA Physical Exam Vital Signs: Temp Pulse Resp BP Pulse Ox 99.2 F 65 20 99/55 L 100 04/17/17 20:12 04/17/17 20:12 04/17/17 20:12 04/17/17 20:12 04/17/17 20:12 Intake & Output 04/16/17 04/17/17 04/18/17 06:59 06:59 06:59 Intake Total 4124 3110 1844 Output Total 1 Balance 4123 3110 1844 Weight 125.5 kg General appearance: PRESENT: no acute distress Eye exam: PRESENT: PERRLA Respiratory exam: PRESENT: clear to auscultation heydi Cardiovascular exam: PRESENT: +S1, +S2 GI/Abdominal exam: PRESENT: soft Neurological exam: PRESENT: alert Results Laboratory Results: 04/16/17 09:34 04/17/17 06:10 04/17/17 06:10 Sodium 141.4 Potassium 4.3 Chloride 120 H Carbon Dioxide 15 L Anion Gap 6 BUN 16 Creatinine 0.80 Est GFR ( Amer) > 60 Est GFR (Non-Af Amer) > 60 Glucose 86 Calcium 9.0 Impressions: Chest X-Ray 04/13/17 18:42 IMPRESSION: RIGHT PERIHILAR INFILTRATE. NO CHANGE. Abdomen/Pelvis CT 04/13/17 20:58 IMPRESSION: 1. No acute findings. 2. Hepatomegaly. Chest/Abdomen CTA 04/13/17 20:58 IMPRESSION: 1. No pulmonary emboli. 2. Airspace opacities within the right lower lobe, may represent multifocal pneumonia. Radiographic follow-up recommended to ensure resolution exclude underlying neoplasm. 3. Mild mediastinal and hilar adenopathy. Assessment & Plan - Diagnosis (1) Right lower lobe pneumonia Qualifiers: Pneumonia type: due to unspecified organism Qualified Code(s): J18.1 - Lobar pneumonia, unspecified organism Is this a current diagnosis for this admission?: Yes (2) Metabolic acidosis Is this a current diagnosis for this admission?: Yes (3) Hypokalemia Is this a current diagnosis for this admission?: Yes (4) Acute kidney injury Is this a current diagnosis for this admission?: Yes (5) Hyponatremia Is this a current diagnosis for this admission?: Yes
[2017-04-18] MEDS: NORMAL SALINE 10 ML SDV (SCHEDULED) IV SCH ×3 (01:22→21:16)
[2017-04-18] MEDS: DIPHENOXYLATE HCL/ATROP SULF 2.5-0.025 MG TABLET PO SCH ×5 (05:41→21:15)
[2017-04-18] MEDS: OXYCODONE HCL IR 5 MG TABLET PO SCH ×3 (05:42→21:15)
[2017-04-18] MEDS: LANSOPRAZOLE 30 MG TAB.RAP.DR PO SCH (05:42)
[2017-04-18 06:26] LABS: ANION GAP 5 (5-19); BLOOD UREA NITROGEN 11 mg/dL (7-20); CALCIUM 9.1 mg/dL (8.4-10.2); CARBON DIOXIDE 18 mmol/L (22-30); CHLORIDE 117 mmol/L (98-107); GLUCOSE 88 mg/dL (75-110); POTASSIUM 3.6 mmol/L (3.6-5.0); SODIUM 140.4 mmol/L (137-145)
[2017-04-18] MEDS: ENOXAPARIN SODIUM INJ 40 MG/0.4 ML DISP.SYRIN SUBCUT SCH (09:08)
[2017-04-18] MEDS: CEFEPIME 1 GM/D5W RTU 1 GM/50 ML RTUPB IV SCH ×2 (09:25→21:15)
[2017-04-18] MEDS: ONDANSETRON HCL INJ/PF 4 MG/2 ML SDV IV PRN (09:25)
[2017-04-18] MEDS: VENLAFAXINE HCL 75 MG TABLET PO SCH ×2 (09:26→21:15)
[2017-04-18] MEDS: LIPASE/PROTEASE/AMYLASE 1 CAP CAPSULE.DR PO SCH ×3 (09:26→19:01)
[2017-04-18] MEDS: DICYCLOMINE HCL 20 MG TABLET PO SCH ×4 (09:26→21:15)
[2017-04-18] MEDS: POTASSIUM CHLORIDE 20 MEQ/15 ML UDCUP PO SCH ×2 (09:27→19:01)
[2017-04-18] MEDS: ACETAMINOPHEN 325 MG TABLET PO PRN (11:12)
[2017-04-18] MEDS: LEVOFLOXACIN 750 MG/D5W RTU 750 MG/150 ML RTUPB IV SCH (14:06)
[2017-04-18] MEDS ORDERED: NALOXONE HCL INJ/PF 0.4 MG/1 ML SDV ONE (15:31)
[2017-04-18] MEDS ORDERED: GLUCAGON,HUMAN RECOMB 1 MG INJ ONE (15:32)
[2017-04-18] MEDS ORDERED: EPINEPHRINE INJ 1 MG/10 ML DISP.SYRIN ONE (15:32)
[2017-04-18] MEDS ORDERED: FLUMAZENIL INJ 0.5 MG/5 ML VIAL ONE (15:32)
[2017-04-18] MEDS: POTASSI CL 40 MEQ/NS 1L 1,000 ML IV PRN (17:30)
[2017-04-18] MEDS: MIDAZOLAM 2 MG/2 ML INJ ONE ×2 (19:03→19:17)
[2017-04-18] MEDS: FENTANYL CITRATE INJ/PF 100 MCG/2 ML AMPUL ONE ×3 (19:05→19:13)
--- NOTE | 2017-04-18 19:27 | PDOC CONSULTATION ---
Consultation Consult Date: 04/17/17 History of Present Illness Admission Date/PCP: 04/13/17 23:18 DOMINIQUE JOYA MD History of Present Illness: This is a 66-year-old patient admitted by Dr. Joya for fever, body aches, cough, and possible pneumonia. She has a history of COPD. Consultation was quested for anemia. She has a chronic history of anemia with a hemoglobin of 11 back in November 2015 and also in February 2017. On admission this time her hemoglobin was 10. It was 10.5 in March. She denies any red blood or black stools through her ileostomy. She had a total colectomy with ileostomy more than 10 years ago for Crohn's disease. She has not been on any medications for this. Her ferritin was 20 and back in November of last year. She was admitted in March with pancreatitis with a lipase of 20,000. On admission this time her lipase was 800. She also had problems with high output from her ileostomy back in March with a creatinine of 3.6. In March her pancreas was normal on CAT scan with no pancreatic duct dilation. Past Medical History Pulmonary Medical History: Reports: Chronic Obstructive Pulmonary Disease (COPD) Neurological Medical History: Denies: Seizures GI Medical History: Reports: Crohn's Disease, Gastroesophageal Reflux Disease Musculoskeltal Medical History: Reports: Arthritis Psychiatric Medical History: Reports: Depression Past Surgical History Past Surgical History: Reports: Cholecystectomy, Colostomy, Hysterectomy, Orthopedic Surgery - feet, Other - Total colectomy Social History Lives with: Family Smoking Status: Never Smoker Frequency of Alcohol Use: None Hx Recreational Drug Use: No Drugs: None Hx Prescription Drug Abuse: No - Advance Directive Resuscitation Status: Full Code Family History Family History: Reviewed & Not Pertinent Parental Family History Reviewed: No Children Family History Reviewed: NA Sibling(s) Family History Reviewed.: NA Medication/Allergy Home Medications: Acetaminophen [Tylenol Extra Strength 500 mg Tablet] 1 tab PO Q4HP PRN 03/15/17 Albuterol Sulfate [Ventolin Hfa] 2 puff IH Q6HP PRN 03/15/17 Cyanocobalamin (Vitamin B-12) [Vitamin B-12 Inj 1000 Mcg/1 ml Vial] 1,000 mcg IM .MONTHLY 03/15/17 Dicyclomine HCl [Bentyl 20 mg Tablet] 20 mg PO QID 03/15/17 Diphenoxylate HCl/Atrop Sulf [Lomotil 2.5 mg Tablet] 1 tab PO Q4HWA 03/15/17 Ergocalciferol (Vitamin D2) [Vitamin D2] 50,000 unit PO TH@1000 03/15/17 Guaifenesin [Tussin] 10 ml PO Q6HP PRN 03/15/17 Lipase/Protease/Amylase [Creon Dr 12,000 Units Capsule] 1 each PO Q8 03/15/17 Mag Hydrox/Al Hydrox/Simeth [Maalox Suspension] 30 ml PO Q6HP PRN 03/15/17 Omeprazole 40 mg PO DAILY 03/15/17 Ondansetron [Zofran Odt 4 mg Tablet] 1 tab PO Q8HP PRN 03/15/17 Potassium Chloride [Kaon-Cl 20 Meq/15 ml Udcup] 20 meq PO BID 03/15/17 Sennosides [Senokot] 34.4 mg PO Q12 03/15/17 Trazodone HCl [Desyrel 50 mg Tablet] 25 mg PO QHS 03/15/17 Venlafaxine HCl [Effexor 75 mg Tablet] 75 mg PO Q12 03/15/17 Amoxicillin Trihydrate [Amoxil 250 mg Capsule] 250 mg PO Q8 #21 capsule Guaifenesin/Dextromethorphan [Robitussin Cough-Chest Dm Liq] 5 ml PO Q6 PRN #60 ml 04/13/17 Levofloxacin [Levaquin 750 mg Tablet] 750 mg PO DAILY #10 tablet 04/13/17 Oxycodone HCl [Oxycodone HCl] 5 mg PO TID 04/14/17 Allergies/Adverse Reactions: codeine Allergy (Verified 03/15/17 15:38) naproxen Allergy (Verified 03/15/17 15:38) pregabalin [From Lyrica] Allergy (Verified 03/15/17 15:38) Review of Systems All systems: reviewed and no additional remarkable complaints except as stated Physical Exam Vital Signs: Temp Pulse Resp BP Pulse Ox 98.6 F 69 15 132/46 H 100 04/18/17 17:40 04/18/17 19:10 04/18/17 19:10 04/18/17 19:10 04/18/17 19:10 Intake & Output 04/17/17 04/18/17 04/19/17 06:59 06:59 06:59 Intake Total 3110 4043 222 Balance 3110 4043 222 Weight 125.5 kg 52.5 kg Exam: General: Patient is alert. There is some pallor HEENT: T no jaundice. PERRLA. Oropharynx normal Respiratory: Kyphosis. No respiratory distress. Chest wall palpitation was unremarkable. Breath sounds were normal Cardiovascular: Heart sounds 1 and 2 normal with no murmurs. Abdominal: Not distended. Soft and nontender. There is an ileostomy in place Extremities: No edema Neurological: Alert and oriented x4. Normal speech Skin: No significant rash Psychological: Normal affect Results Laboratory Results: 04/16/17 09:34 04/18/17 05:42 04/18/17 05:42 Sodium 140.4 Potassium 3.6 Chloride 117 H Carbon Dioxide 18 L Anion Gap 5 BUN 11 Creatinine 0.82 Est GFR ( Amer) > 60 Est GFR (Non-Af Amer) > 60 Glucose 88 Calcium 9.1 Impressions: Chest X-Ray 04/13/17 18:42 IMPRESSION: RIGHT PERIHILAR INFILTRATE. NO CHANGE. Abdomen/Pelvis CT 04/13/17 20:58 IMPRESSION: 1. No acute findings. 2. Hepatomegaly. Chest/Abdomen CTA 04/13/17 20:58 IMPRESSION: 1. No pulmonary emboli. 2. Airspace opacities within the right lower lobe, may represent multifocal pneumonia. Radiographic follow-up recommended to ensure resolution exclude underlying neoplasm. 3. Mild mediastinal and hilar adenopathy. Assessment & Plan - Diagnosis (1) Anemia Qualifiers: Anemia type: other cause Is this a current diagnosis for this admission?: Yes Plan: Her anemia is likely multifactorial related to all her chronic medical illnesses. Her need for IV fluids can also affect her H&H due to hemodilution. She has no obvious GI blood loss. She will undergo an EGD for further evaluation. (3) Pancreatitis Qualifiers: Chronicity: acute Pancreatitis type: unspecified pancreatitis type Acute pancreatitis complication: unspecified Qualified Code(s): K85.90 - Acute pancreatitis without necrosis or infection, unspecified Is this a current diagnosis for this admission?: Yes Plan: She lipase was very high in March though her 2 CAT scans in March and again a few days ago showed normal pancreas. I doubt significant pancreatic disease
--- NOTE | 2017-04-18 19:29 | Operative Report ---
Operative Report DATE OF SURGERY: 04/18/17 Operative Report: Pre-op diagnosis: Anemia Post-op diagnosis: 1. Mild antral gastritis 2. Rule out celiac disease Surgery: Esophagogastroduodenoscopy with biopsy Medications: Versed 3mg Fentanyl 100mcg IV push Tissue removed: Antral and duodenal biopsy for pathology Procedure: After informed consent obtained from patient, the throat was sprayed with Hurricane and conscious sedation was achieved. The upper endoscope was inserted into the esophagus under direct vision and advanced into the stomach. The duodenum was entered and examined to the second part. Endoscope was then slowly pulled out of the patient as the mucosa was examined into details. Patient tolerated procedure well. Findings Esophagus: Normal Z-line at: 40 cm Antrum: Mild erythema Body: Normal Fundus: Normal Duodenum first part: Mucosa was not as prominent. Biopsies were taken from the first and second part of duodenum to rule out villous atrophy Duodenum second part: Normal Plan: Await pathology OPERATION: .
--- NOTE | 2017-04-18 21:03 | PDOC PROGRESS REPORT ---
Subjective Progress Note for:: 04/18/17 Subjective:: She was seen by the bedside, she had upper endoscopy done today Reason For Visit: SEPSIS, PNA Physical Exam Vital Signs: Temp Pulse Resp BP Pulse Ox 98.6 F 66 16 101/51 L 100 04/18/17 17:40 04/18/17 19:50 04/18/17 19:50 04/18/17 19:50 04/18/17 19:50 Intake & Output 04/17/17 04/18/17 04/19/17 06:59 06:59 06:59 Intake Total 3110 4043 1422 Balance 3110 4043 1422 Weight 125.5 kg 52.5 kg General appearance: PRESENT: no acute distress Eye exam: PRESENT: PERRLA Respiratory exam: PRESENT: clear to auscultation heydi Cardiovascular exam: PRESENT: +S1, +S2 GI/Abdominal exam: PRESENT: soft Neurological exam: PRESENT: alert Results Laboratory Results: 04/16/17 09:34 04/18/17 05:42 04/18/17 05:42 Sodium 140.4 Potassium 3.6 Chloride 117 H Carbon Dioxide 18 L Anion Gap 5 BUN 11 Creatinine 0.82 Est GFR ( Amer) > 60 Est GFR (Non-Af Amer) > 60 Glucose 88 Calcium 9.1 Impressions: Chest X-Ray 04/13/17 18:42 IMPRESSION: RIGHT PERIHILAR INFILTRATE. NO CHANGE. Abdomen/Pelvis CT 04/13/17 20:58 IMPRESSION: 1. No acute findings. 2. Hepatomegaly. Chest/Abdomen CTA 04/13/17 20:58 IMPRESSION: 1. No pulmonary emboli. 2. Airspace opacities within the right lower lobe, may represent multifocal pneumonia. Radiographic follow-up recommended to ensure resolution exclude underlying neoplasm. 3. Mild mediastinal and hilar adenopathy. Assessment & Plan - Diagnosis (1) Right lower lobe pneumonia Qualifiers: Pneumonia type: due to unspecified organism Qualified Code(s): J18.1 - Lobar pneumonia, unspecified organism Is this a current diagnosis for this admission?: Yes (2) Metabolic acidosis Is this a current diagnosis for this admission?: Yes (3) Hypokalemia Is this a current diagnosis for this admission?: Yes (4) Acute kidney injury Is this a current diagnosis for this admission?: Yes (5) Hyponatremia Is this a current diagnosis for this admission?: Yes (6) Gastritis Qualifiers: Gastritis type: unspecified gastritis Chronicity: unspecified Gastritis bleeding: without bleeding Qualified Code(s): K29.70 - Gastritis, unspecified , without bleeding Is this a current diagnosis for this admission?: Yes Plan: He had upper endoscopy done today, no definitive GI bleed was found there is no ulcer, there is no visible vessel that was seen on the endoscopy, celiac disease was entertained as a potential etiology of the anemia biopsies were taken from the spine testing and also endomysial IgA antibody test was ordered
[2017-04-18] MEDS: TRAZODONE HCL 50 MG TABLET PO SCH (21:15)
[2017-04-19] MEDS: DIPHENOXYLATE HCL/ATROP SULF 2.5-0.025 MG TABLET PO SCH ×5 (05:19→21:35)
[2017-04-19] MEDS: OXYCODONE HCL IR 5 MG TABLET PO SCH ×3 (05:19→21:36)
[2017-04-19] MEDS: LANSOPRAZOLE 30 MG TAB.RAP.DR PO SCH (05:19)
[2017-04-19] MEDS: POTASSI CL 40 MEQ/NS 1L 1,000 ML IV PRN ×2 (05:31→19:00)
[2017-04-19] MEDS: ONDANSETRON HCL INJ/PF 4 MG/2 ML SDV IV PRN ×3 (05:31→21:49)
[2017-04-19] MEDS: LIPASE/PROTEASE/AMYLASE 1 CAP CAPSULE.DR PO SCH ×3 (09:19→18:09)
[2017-04-19] MEDS: VENLAFAXINE HCL 75 MG TABLET PO SCH ×2 (09:19→21:36)
[2017-04-19] MEDS: ENOXAPARIN SODIUM INJ 40 MG/0.4 ML DISP.SYRIN SUBCUT SCH (09:19)
[2017-04-19] MEDS: POTASSIUM CHLORIDE 20 MEQ/15 ML UDCUP PO SCH ×2 (09:20→18:08)
[2017-04-19] MEDS: DICYCLOMINE HCL 20 MG TABLET PO SCH ×4 (09:20→21:36)
[2017-04-19] MEDS: NORMAL SALINE 10 ML SDV (SCHEDULED) IV SCH ×2 (09:20→21:36)
[2017-04-19] MEDS: ACETAMINOPHEN 325 MG TABLET PO PRN ×2 (09:21→19:00)
[2017-04-19] MEDS: CEFEPIME 1 GM/D5W RTU 1 GM/50 ML RTUPB IV SCH ×2 (09:22→21:36)
[2017-04-19] MEDS: LEVOFLOXACIN 750 MG TABLET PO SCH (14:28)
--- NOTE | 2017-04-19 21:27 | PDOC PROGRESS REPORT ---
Subjective Progress Note for:: 04/19/17 Subjective:: Patient seen by the bedside she has no new complaints Reason For Visit: SEPSIS, PNA Physical Exam Vital Signs: Temp Pulse Resp BP Pulse Ox 98.9 F 70 16 114/52 L 100 04/19/17 19:25 04/19/17 19:25 04/19/17 19:25 04/19/17 19:25 04/19/17 19:25 Intake & Output 04/18/17 04/19/17 04/20/17 06:59 06:59 06:59 Intake Total 4043 3210 2318 Balance 4043 3210 2318 Weight 52.5 kg 52 kg General appearance: PRESENT: no acute distress Eye exam: PRESENT: PERRLA Neck exam: PRESENT: full ROM Respiratory exam: PRESENT: clear to auscultation heydi Cardiovascular exam: PRESENT: RRR, +S1, +S2 Pulses: PRESENT: normal dorsalis pedis pul, +2 pedal pulses bilateral Vascular exam: PRESENT: normal capillary refill GI/Abdominal exam: PRESENT: normal bowel sounds, soft Rectal exam: PRESENT: deferred Neurological exam: PRESENT: alert Psychiatric exam: PRESENT: appropriate affect, normal mood Skin exam: PRESENT: dry, intact, warm Results Laboratory Results: 04/16/17 09:34 04/18/17 05:42 04/13/17 23:19 Blood Blood Culture - Final NO GROWTH IN 5 DAYS 04/13/17 23:22 Blood Blood Culture - Final NO GROWTH IN 5 DAYS Impressions: Chest X-Ray 04/13/17 18:42 IMPRESSION: RIGHT PERIHILAR INFILTRATE. NO CHANGE. Abdomen/Pelvis CT 04/13/17 20:58 IMPRESSION: 1. No acute findings. 2. Hepatomegaly. Chest/Abdomen CTA 04/13/17 20:58 IMPRESSION: 1. No pulmonary emboli. 2. Airspace opacities within the right lower lobe, may represent multifocal pneumonia. Radiographic follow-up recommended to ensure resolution exclude underlying neoplasm. 3. Mild mediastinal and hilar adenopathy. Assessment & Plan - Diagnosis (1) Right lower lobe pneumonia Qualifiers: Pneumonia type: due to unspecified organism Qualified Code(s): J18.1 - Lobar pneumonia, unspecified organism Is this a current diagnosis for this admission?: Yes (2) Metabolic acidosis Is this a current diagnosis for this admission?: Yes (3) Hypokalemia Is this a current diagnosis for this admission?: Yes (4) Acute kidney injury Is this a current diagnosis for this admission?: Yes (5) Hyponatremia Is this a current diagnosis for this admission?: Yes (6) Acute pancreatitis Qualifiers: Pancreatitis type: unspecified pancreatitis type Acute pancreatitis complication: unspecified Qualified Code(s): K85.90 - Acute pancreatitis without necrosis or infection, unspecified Is this a current diagnosis for this admission?: Yes Plan: She has severely elevated serum lipase that suggest acute pancreatitis in the setting of abdominal pain
[2017-04-19] MEDS: TRAZODONE HCL 50 MG TABLET PO SCH (21:35)
[2017-04-19 22:49] LABS: ABSOLUTE EOSINOPHILS # (AUTO) 0.1 10^3/uL (0.0-0.6); ABSOLUTE LYMPHOCYTES (AUTO) 1.4 10^3/uL (0.5-4.7); ABSOLUTE MONOCYTES (AUTO) 0.5 10^3/uL (0.1-1.4); ABSOLUTE NEUT (AUTO) 5.7 10^3/uL (1.7-8.2); BASOPHILS % (AUTO) 0.3 % (0-2); EOSINOPHILS % (AUTO) 1.4 % (0-6); HEMOGLOBIN 8.7 g/dL (12.0-15.5); LYMPHOCYTES % (AUTO) 17.9 % (13-45); MEAN CORPUSCULAR HEMOGLOBIN 32.8 pg (27.0-33.4); MEAN CORPUSCULAR HGB CONC 33.4 g/dL (32.0-36.0); MEAN CORPUSCULAR VOLUME 98 fl (80-97); PLATELET COUNT 162 10^3/uL (150-450); RED BLOOD COUNT 2.65 10^6/uL (3.72-5.28); RED CELL DISTRIBUTION WIDTH 17.4 % (11.5-14.0); SEGMENTED NEUTROPHILS % (AUTO) 74.4 % (42-78); TOTAL CELLS COUNTED % (AUTO) 100 %; WHITE BLOOD COUNT 7.7 10^3/uL (4.0-10.5)
[2017-04-19 23:11] LABS: ALANINE AMINOTRANSFERASE 19 U/L (9-52); ALBUMIN 2.3 g/dL (3.5-5.0); ALKALINE PHOSPHATASE 63 U/L (38-126); ANION GAP 5 (5-19); ASPARTATE AMINO TRANSFERASE 11 U/L (14-36); BLOOD UREA NITROGEN 15 mg/dL (7-20); CALCIUM 8.5 mg/dL (8.4-10.2); CARBON DIOXIDE 21 mmol/L (22-30); CHLORIDE 116 mmol/L (98-107); GLUCOSE 112 mg/dL (75-110); POTASSIUM 4.1 mmol/L (3.6-5.0); SODIUM 142.4 mmol/L (137-145); TOTAL PROTEIN 4.4 g/dL (6.3-8.2)
[2017-04-19 23:13] LABS: BILIRUBIN,TOTAL < 0.1 mg/dL (0.2-1.3)
[2017-04-20] MEDS: POTASSI CL 40 MEQ/NS 1L 1,000 ML IV PRN ×2 (04:46→21:35)
[2017-04-20] MEDS: OXYCODONE HCL IR 5 MG TABLET PO SCH ×3 (05:44→21:25)
[2017-04-20] MEDS: LANSOPRAZOLE 30 MG TAB.RAP.DR PO SCH (05:44)
[2017-04-20] MEDS: DIPHENOXYLATE HCL/ATROP SULF 2.5-0.025 MG TABLET PO SCH ×5 (05:45→21:25)
[2017-04-20 06:14] LABS: ABSOLUTE EOSINOPHILS # (AUTO) 0.1 10^3/uL (0.0-0.6); ABSOLUTE LYMPHOCYTES (AUTO) 1.1 10^3/uL (0.5-4.7); ABSOLUTE MONOCYTES (AUTO) 0.4 10^3/uL (0.1-1.4); ABSOLUTE NEUT (AUTO) 5.6 10^3/uL (1.7-8.2); BASOPHILS % (AUTO) 0.3 % (0-2); EOSINOPHILS % (AUTO) 1.6 % (0-6); HEMOGLOBIN 8.8 g/dL (12.0-15.5); LYMPHOCYTES % (AUTO) 15.4 % (13-45); MEAN CORPUSCULAR HEMOGLOBIN 33.1 pg (27.0-33.4); MEAN CORPUSCULAR HGB CONC 33.9 g/dL (32.0-36.0); MEAN CORPUSCULAR VOLUME 98 fl (80-97); MONOCYTES % (AUTO) 5.1 % (3-13); PLATELET COUNT 165 10^3/uL (150-450); RED BLOOD COUNT 2.66 10^6/uL (3.72-5.28); RED CELL DISTRIBUTION WIDTH 16.9 % (11.5-14.0); SEGMENTED NEUTROPHILS % (AUTO) 77.6 % (42-78); TOTAL CELLS COUNTED % (AUTO) 100 %; WHITE BLOOD COUNT 7.2 10^3/uL (4.0-10.5)
[2017-04-20 06:36] LABS: ALANINE AMINOTRANSFERASE 20 U/L (9-52); ALBUMIN 2.3 g/dL (3.5-5.0); ALKALINE PHOSPHATASE 60 U/L (38-126); ANION GAP 5 (5-19); ASPARTATE AMINO TRANSFERASE 12 U/L (14-36); BILIRUBIN,DIRECT 0.1 mg/dL (0.0-0.4); BILIRUBIN,TOTAL 0.1 mg/dL (0.2-1.3); BLOOD UREA NITROGEN 13 mg/dL (7-20); CALCIUM 8.6 mg/dL (8.4-10.2); CARBON DIOXIDE 21 mmol/L (22-30); CHLORIDE 115 mmol/L (98-107); GLUCOSE 92 mg/dL (75-110); POTASSIUM 4.1 mmol/L (3.6-5.0); SODIUM 140.9 mmol/L (137-145); TOTAL PROTEIN 4.6 g/dL (6.3-8.2)
[2017-04-20] MEDS: LIPASE/PROTEASE/AMYLASE 1 CAP CAPSULE.DR PO SCH ×3 (08:53→17:37)
[2017-04-20] MEDS: ACETAMINOPHEN 325 MG TABLET PO PRN ×2 (08:54→17:39)
[2017-04-20] MEDS: DICYCLOMINE HCL 20 MG TABLET PO SCH ×4 (08:54→21:35)
[2017-04-20] MEDS: POTASSIUM CHLORIDE 20 MEQ/15 ML UDCUP PO SCH ×2 (09:36→17:36)
[2017-04-20] MEDS: ENOXAPARIN SODIUM INJ 40 MG/0.4 ML DISP.SYRIN SUBCUT SCH (09:36)
[2017-04-20] MEDS: VENLAFAXINE HCL 75 MG TABLET PO SCH ×2 (09:37→21:25)
[2017-04-20] MEDS: NORMAL SALINE 10 ML SDV (SCHEDULED) IV SCH ×2 (09:41→21:25)
[2017-04-20] MEDS: CEFEPIME 1 GM/D5W RTU 1 GM/50 ML RTUPB IV SCH ×2 (09:42→21:25)
[2017-04-20] MEDS ORDERED: ERGOCALCIFEROL (VITAMIN D2) 50000 UNIT (1.25 MG) CAPSULE PO SCH (10:00)
[2017-04-20] MEDS: LEVOFLOXACIN 750 MG TABLET PO SCH (15:09)
[2017-04-20] MEDS: ONDANSETRON HCL INJ/PF 4 MG/2 ML SDV IV PRN (17:41)
[2017-04-20] MEDS: TRAZODONE HCL 50 MG TABLET PO SCH (21:25)
--- NOTE | 2017-04-20 22:01 | PDOC PROGRESS REPORT ---
Subjective Progress Note for:: 04/20/17 Subjective:: She was seen by the bedside biopsy reports was negative for H pylori, metaplasia no dysplasia no celiac disease. The endomysial IgA antibody was also negative making celiac disease unlikely. Reason For Visit: SEPSIS, PNA Physical Exam Vital Signs: Temp Pulse Resp BP Pulse Ox 98.8 F 75 16 114/66 99 04/20/17 19:36 04/20/17 19:36 04/20/17 19:36 04/20/17 19:36 04/20/17 19:36 Intake & Output 04/19/17 04/20/17 04/21/17 06:59 06:59 06:59 Intake Total 3210 4829 1998 Balance 3210 4829 1998 Weight 52 kg 53.8 kg General appearance: PRESENT: no acute distress, well-developed, well-nourished Head exam: PRESENT: atraumatic, normocephalic Eye exam: PRESENT: conjunctiva pink, EOMI, PERRLA Ear exam: PRESENT: normal external ear exam Mouth exam: PRESENT: moist, tongue midline Neck exam: PRESENT: full ROM Respiratory exam: PRESENT: clear to auscultation heydi Cardiovascular exam: PRESENT: RRR, +S1, +S2 Pulses: PRESENT: normal dorsalis pedis pul, +2 pedal pulses bilateral Vascular exam: PRESENT: normal capillary refill GI/Abdominal exam: PRESENT: normal bowel sounds, soft, other - Colostomy tube Rectal exam: PRESENT: deferred Neurological exam: PRESENT: alert, CN II-XII grossly intact Psychiatric exam: PRESENT: appropriate affect, normal mood Skin exam: PRESENT: dry, intact, warm. ABSENT: cyanosis, rash Results Laboratory Results: 04/20/17 06:00 04/20/17 06:00 04/19/17 04/19/17 04/20/17 22:30 22:30 06:00 WBC 7.7 7.2 RBC 2.65 L 2.66 L Hgb 8.7 L 8.8 L Hct 26.0 L 26.0 L MCV 98 H 98 H MCH 32.8 33.1 MCHC 33.4 33.9 RDW 17.4 H 16.9 H Plt Count 162 165 Seg Neutrophils % 74.4 77.6 Lymphocytes % 17.9 15.4 Monocytes % 6.0 5.1 Eosinophils % 1.4 1.6 Basophils % 0.3 0.3 Absolute Neutrophils 5.7 5.6 Absolute Lymphocytes 1.4 1.1 Absolute Monocytes 0.5 0.4 Absolute Eosinophils 0.1 0.1 Absolute Basophils 0.0 0.0 Sodium 142.4 Potassium 4.1 Chloride 116 H Carbon Dioxide 21 L Anion Gap 5 BUN 15 Creatinine 0.90 Est GFR ( Amer) > 60 Est GFR (Non-Af Amer) > 60 Glucose 112 H Calcium 8.5 Total Bilirubin < 0.1 L AST 11 L ALT 19 Alkaline Phosphatase 63 Total Protein 4.4 L Albumin 2.3 L 04/20/17 06:00 WBC RBC Hgb Hct MCV MCH MCHC RDW Plt Count Seg Neutrophils % Lymphocytes % Monocytes % Eosinophils % Basophils % Absolute Neutrophils Absolute Lymphocytes Absolute Monocytes Absolute Eosinophils Absolute Basophils Sodium 140.9 Potassium 4.1 Chloride 115 H Carbon Dioxide 21 L Anion Gap 5 BUN 13 Creatinine 0.79 Est GFR ( Amer) > 60 Est GFR (Non-Af Amer) > 60 Glucose 92 Calcium 8.6 Total Bilirubin 0.1 L AST 12 L ALT 20 Alkaline Phosphatase 60 Total Protein 4.6 L Albumin 2.3 L Impressions: Chest X-Ray 04/13/17 18:42 IMPRESSION: RIGHT PERIHILAR INFILTRATE. NO CHANGE. Abdomen/Pelvis CT 04/13/17 20:58 IMPRESSION: 1. No acute findings. 2. Hepatomegaly. Chest/Abdomen CTA 04/13/17 20:58 IMPRESSION: 1. No pulmonary emboli. 2. Airspace opacities within the right lower lobe, may represent multifocal pneumonia. Radiographic follow-up recommended to ensure resolution exclude underlying neoplasm. 3. Mild mediastinal and hilar adenopathy. Assessment & Plan - Diagnosis (1) Right lower lobe pneumonia Qualifiers: Pneumonia type: due to unspecified organism Qualified Code(s): J18.1 - Lobar pneumonia, unspecified organism Is this a current diagnosis for this admission?: Yes (2) Metabolic acidosis Is this a current diagnosis for this admission?: Yes (3) Hypokalemia Is this a current diagnosis for this admission?: Yes (4) Acute kidney injury Is this a current diagnosis for this admission?: Yes (5) Hyponatremia Is this a current diagnosis for this admission?: Yes (6) Acute pancreatitis Qualifiers: Pancreatitis type: unspecified pancreatitis type Acute pancreatitis complication: unspecified Qualified Code(s): K85.90 - Acute pancreatitis without necrosis or infection, unspecified Is this a current diagnosis for this admission?: Yes
[2017-04-21] MEDS: ACETAMINOPHEN 325 MG TABLET PO PRN ×2 (03:49→10:30)
[2017-04-21] MEDS: OXYCODONE HCL IR 5 MG TABLET PO SCH ×3 (05:16→22:20)
[2017-04-21] MEDS: DIPHENOXYLATE HCL/ATROP SULF 2.5-0.025 MG TABLET PO SCH ×5 (05:17→22:20)
[2017-04-21] MEDS: LANSOPRAZOLE 30 MG TAB.RAP.DR PO SCH (05:17)
[2017-04-21] MEDS: POTASSI CL 40 MEQ/NS 1L 1,000 ML IV PRN ×2 (07:20→20:08)
[2017-04-21] MEDS: POTASSIUM CHLORIDE 20 MEQ/15 ML UDCUP PO SCH ×2 (10:22→17:36)
[2017-04-21] MEDS: DICYCLOMINE HCL 20 MG TABLET PO SCH ×4 (10:22→22:20)
[2017-04-21] MEDS: LIPASE/PROTEASE/AMYLASE 1 CAP CAPSULE.DR PO SCH ×3 (10:22→17:36)
[2017-04-21] MEDS: ENOXAPARIN SODIUM INJ 40 MG/0.4 ML DISP.SYRIN SUBCUT SCH (10:22)
[2017-04-21] MEDS: VENLAFAXINE HCL 75 MG TABLET PO SCH ×2 (10:24→22:20)
[2017-04-21] MEDS: NORMAL SALINE 10 ML SDV (SCHEDULED) IV SCH ×2 (10:26→22:20)
[2017-04-21] MEDS: CEFEPIME 1 GM/D5W RTU 1 GM/50 ML RTUPB IV SCH ×2 (10:27→22:20)
[2017-04-21] MEDS: ONDANSETRON HCL INJ/PF 4 MG/2 ML SDV IV PRN (12:54)
[2017-04-21] MEDS: LEVOFLOXACIN 750 MG TABLET PO SCH (15:37)
[2017-04-21 19:21] LABS: ABSOLUTE EOSINOPHILS # (AUTO) 0.1 10^3/uL (0.0-0.6); ABSOLUTE LYMPHOCYTES (AUTO) 1.3 10^3/uL (0.5-4.7); ABSOLUTE MONOCYTES (AUTO) 0.3 10^3/uL (0.1-1.4); ABSOLUTE NEUT (AUTO) 3.7 10^3/uL (1.7-8.2); BASOPHILS % (AUTO) 0.3 % (0-2); EOSINOPHILS % (AUTO) 1.3 % (0-6); HEMATOCRIT 26.5 % (36.0-47.0); HEMOGLOBIN 8.7 g/dL (12.0-15.5); LYMPHOCYTES % (AUTO) 24.1 % (13-45); MEAN CORPUSCULAR HEMOGLOBIN 32.7 pg (27.0-33.4); MEAN CORPUSCULAR VOLUME 99 fl (80-97); MONOCYTES % (AUTO) 4.9 % (3-13); PLATELET COUNT 175 10^3/uL (150-450); RED BLOOD COUNT 2.67 10^6/uL (3.72-5.28); RED CELL DISTRIBUTION WIDTH 17.1 % (11.5-14.0); SEGMENTED NEUTROPHILS % (AUTO) 69.4 % (42-78); TOTAL CELLS COUNTED % (AUTO) 100 %; WHITE BLOOD COUNT 5.4 10^3/uL (4.0-10.5)
[2017-04-21 19:40] LABS: ALANINE AMINOTRANSFERASE 20 U/L (9-52); ALBUMIN 2.5 g/dL (3.5-5.0); ALKALINE PHOSPHATASE 63 U/L (38-126); ANION GAP 9 (5-19); ASPARTATE AMINO TRANSFERASE 15 U/L (14-36); BLOOD UREA NITROGEN 15 mg/dL (7-20); CALCIUM 7.9 mg/dL (8.4-10.2); CARBON DIOXIDE 21 mmol/L (22-30); CHLORIDE 111 mmol/L (98-107); GLUCOSE 145 mg/dL (75-110); POTASSIUM 3.6 mmol/L (3.6-5.0); SODIUM 141.3 mmol/L (137-145); TOTAL PROTEIN 4.8 g/dL (6.3-8.2)
[2017-04-21 19:42] LABS: BILIRUBIN,TOTAL < 0.1 mg/dL (0.2-1.3)
--- NOTE | 2017-04-21 21:19 | PDOC PROGRESS REPORT ---
Subjective Progress Note for:: 04/21/17 Subjective:: She was seen by the bedside biopsy reports was negative for H pylori, metaplasia no dysplasia no celiac disease. The endomysial IgA antibody was also negative making celiac disease unlikely. Reason For Visit: SEPSIS, PNA Physical Exam Vital Signs: Temp Pulse Resp BP Pulse Ox 98.9 F 61 16 112/58 L 97 04/21/17 16:08 04/21/17 16:08 04/21/17 16:08 04/21/17 16:08 04/21/17 16:08 Intake & Output 04/20/17 04/21/17 04/22/17 06:59 06:59 06:59 Intake Total 4829 3745 1522 Balance 4829 3745 1522 Weight 53.8 kg General appearance: PRESENT: no acute distress, well-developed, well-nourished Head exam: PRESENT: atraumatic, normocephalic Eye exam: PRESENT: conjunctiva pink, EOMI, PERRLA Ear exam: PRESENT: normal external ear exam Mouth exam: PRESENT: moist, tongue midline Neck exam: PRESENT: full ROM Respiratory exam: PRESENT: clear to auscultation heydi Cardiovascular exam: PRESENT: RRR, +S1, +S2 Vascular exam: PRESENT: normal capillary refill GI/Abdominal exam: PRESENT: normal bowel sounds, soft Rectal exam: PRESENT: deferred Neurological exam: PRESENT: alert. ABSENT: motor sensory deficit Skin exam: PRESENT: dry, intact, warm Results Laboratory Results: 04/21/17 19:12 04/21/17 19:12 04/21/17 04/21/17 19:12 19:12 WBC 5.4 RBC 2.67 L Hgb 8.7 L Hct 26.5 L MCV 99 H MCH 32.7 MCHC 33.0 RDW 17.1 H Plt Count 175 Seg Neutrophils % 69.4 Lymphocytes % 24.1 Monocytes % 4.9 Eosinophils % 1.3 Basophils % 0.3 Absolute Neutrophils 3.7 Absolute Lymphocytes 1.3 Absolute Monocytes 0.3 Absolute Eosinophils 0.1 Absolute Basophils 0.0 Sodium 141.3 Potassium 3.6 Chloride 111 H Carbon Dioxide 21 L Anion Gap 9 BUN 15 Creatinine 0.77 Est GFR ( Amer) > 60 Est GFR (Non-Af Amer) > 60 Glucose 145 H Calcium 7.9 L Total Bilirubin < 0.1 L AST 15 ALT 20 Alkaline Phosphatase 63 Total Protein 4.8 L Albumin 2.5 L Impressions: Chest X-Ray 04/13/17 18:42 IMPRESSION: RIGHT PERIHILAR INFILTRATE. NO CHANGE. Abdomen/Pelvis CT 04/13/17 20:58 IMPRESSION: 1. No acute findings. 2. Hepatomegaly. Chest/Abdomen CTA 04/13/17 20:58 IMPRESSION: 1. No pulmonary emboli. 2. Airspace opacities within the right lower lobe, may represent multifocal pneumonia. Radiographic follow-up recommended to ensure resolution exclude underlying neoplasm. 3. Mild mediastinal and hilar adenopathy. Assessment & Plan - Diagnosis (1) Right lower lobe pneumonia Qualifiers: Pneumonia type: due to unspecified organism Qualified Code(s): J18.1 - Lobar pneumonia, unspecified organism Is this a current diagnosis for this admission?: Yes (2) Metabolic acidosis Is this a current diagnosis for this admission?: Yes (3) Hypokalemia Is this a current diagnosis for this admission?: Yes (4) Acute kidney injury Is this a current diagnosis for this admission?: Yes (5) Hyponatremia Is this a current diagnosis for this admission?: Yes (6) Acute pancreatitis Qualifiers: Pancreatitis type: unspecified pancreatitis type Acute pancreatitis complication: unspecified Qualified Code(s): K85.90 - Acute pancreatitis without necrosis or infection, unspecified Is this a current diagnosis for this admission?: Yes
[2017-04-21] MEDS: TRAZODONE HCL 50 MG TABLET PO SCH (22:20)
[2017-04-22] MEDS: LANSOPRAZOLE 30 MG TAB.RAP.DR PO SCH (05:39)
[2017-04-22] MEDS: POTASSI CL 40 MEQ/NS 1L 1,000 ML IV PRN (05:39)
[2017-04-22] MEDS: DIPHENOXYLATE HCL/ATROP SULF 2.5-0.025 MG TABLET PO SCH ×5 (05:39→19:57)
[2017-04-22] MEDS: OXYCODONE HCL IR 5 MG TABLET PO SCH ×3 (05:39→21:19)
[2017-04-22] MEDS: LIPASE/PROTEASE/AMYLASE 1 CAP CAPSULE.DR PO SCH ×3 (09:50→17:31)
[2017-04-22] MEDS: DICYCLOMINE HCL 20 MG TABLET PO SCH ×4 (09:51→20:03)
[2017-04-22] MEDS: ACETAMINOPHEN 325 MG TABLET PO PRN ×2 (09:51→17:39)
[2017-04-22] MEDS: VENLAFAXINE HCL 75 MG TABLET PO SCH ×2 (09:51→19:57)
[2017-04-22] MEDS: POTASSIUM CHLORIDE 20 MEQ/15 ML UDCUP PO SCH ×2 (09:52→17:31)
[2017-04-22] MEDS: ENOXAPARIN SODIUM INJ 40 MG/0.4 ML DISP.SYRIN SUBCUT SCH (09:52)
[2017-04-22] MEDS: NORMAL SALINE 10 ML SDV (SCHEDULED) IV SCH ×2 (09:54→21:21)
[2017-04-22] MEDS: CEFEPIME 1 GM/D5W RTU 1 GM/50 ML RTUPB IV SCH ×2 (09:55→19:56)
[2017-04-22] MEDS: LEVOFLOXACIN 750 MG TABLET PO SCH (14:58)
[2017-04-22 17:08] VITALS: BP 136/60
--- NOTE | 2017-04-22 18:59 | PDOC TRANSFER SUMMARY ---
General - Admit/Disc Date/PCP Admission Date/Primary Care Provider: 04/13/17 23:18 DOMINIQUE JOYA MD Discharge Date: 04/22/17 - Discharge Diagnosis (1) Right lower lobe pneumonia Is this a current diagnosis for this admission?: Yes (2) Metabolic acidosis Is this a current diagnosis for this admission?: Yes (3) Hypokalemia Is this a current diagnosis for this admission?: Yes (4) Acute kidney injury Is this a current diagnosis for this admission?: Yes (5) Hyponatremia Is this a current diagnosis for this admission?: Yes (6) Acute pancreatitis Is this a current diagnosis for this admission?: Yes - Additional Information Resuscitation Status: Full Code Discharge Activity: Activity As Tolerated Home Medications: Acetaminophen [Tylenol Extra Strength 500 mg Tablet] 1 tab PO Q4HP PRN 03/15/17 Albuterol Sulfate [Ventolin Hfa] 2 puff IH Q6HP PRN 03/15/17 Cyanocobalamin (Vitamin B-12) [Vitamin B-12 Inj 1000 Mcg/1 ml Vial] 1,000 mcg IM .MONTHLY 03/15/17 Dicyclomine HCl [Bentyl 20 mg Tablet] 20 mg PO QID 03/15/17 Diphenoxylate HCl/Atrop Sulf [Lomotil 2.5 mg Tablet] 1 tab PO Q4HWA 03/15/17 Ergocalciferol (Vitamin D2) [Vitamin D2] 50,000 unit PO TH@1000 03/15/17 Guaifenesin [Tussin] 10 ml PO Q6HP PRN 03/15/17 Lipase/Protease/Amylase [Creon Dr 12,000 Units Capsule] 1 each PO Q8 03/15/17 Mag Hydrox/Al Hydrox/Simeth [Maalox Suspension] 30 ml PO Q6HP PRN 03/15/17 Omeprazole 40 mg PO DAILY 03/15/17 Ondansetron [Zofran Odt 4 mg Tablet] 1 tab PO Q8HP PRN 03/15/17 Potassium Chloride [Kaon-Cl 20 Meq/15 ml Udcup] 20 meq PO BID 03/15/17 Sennosides [Senokot] 34.4 mg PO Q12 03/15/17 Trazodone HCl [Desyrel 50 mg Tablet] 25 mg PO QHS 03/15/17 Venlafaxine HCl [Effexor 75 mg Tablet] 75 mg PO Q12 03/15/17 Guaifenesin/Dextromethorphan [Robitussin Cough-Chest Dm Liq] 5 ml PO Q6 PRN #60 ml 04/13/17 Oxycodone HCl 5 mg PO TID 04/14/17 History of Present Illness Admission Date/PCP: 04/13/17 23:18 DOMINIQUE JOYA MD History of Present Illness: She was admitted when she presented with shortness of breath fever, see H&P for details Hospital Course Hospital Course: She was admitted for the management of pneumonia, acute pancreatitis and anemia. She was treated with IV antibiotic, she has unexplained anemia, she was seen by GI Dr. Lambert, she had EGD done, was found to have gastritis biopsy of the duodenum was taken . celiac disease was suspected, the IgA endomysial antibody was negative, the biopsy was negative for celiac disease ,H pylori she also had blood transfusion, she was transfused with 2 units of packed red blood cells Physical Exam Vital Signs: Temp Pulse Resp BP Pulse Ox 98.5 F 85 16 136/60 H 99 04/22/17 17:07 04/22/17 17:07 04/22/17 17:07 04/22/17 17:07 04/22/17 17:07 Intake & Output 04/21/17 04/22/17 04/23/17 06:59 06:59 06:59 Intake Total 3745 3347 674 Balance 3745 3347 674 General appearance: PRESENT: no acute distress, well-developed, well-nourished Head exam: PRESENT: atraumatic, normocephalic Eye exam: PRESENT: PERRLA Ear exam: PRESENT: normal external ear exam Mouth exam: PRESENT: moist, tongue midline Respiratory exam: PRESENT: clear to auscultation heydi Cardiovascular exam: PRESENT: RRR Pulses: PRESENT: normal dorsalis pedis pul Vascular exam: PRESENT: normal capillary refill GI/Abdominal exam: PRESENT: normal bowel sounds, soft, other - Ileostomy bag Rectal exam: PRESENT: deferred Extremities exam: PRESENT: full ROM Neurological exam: PRESENT: alert. ABSENT: motor sensory deficit Psychiatric exam: PRESENT: appropriate affect, normal mood Skin exam: PRESENT: dry, intact, warm Results Laboratory Results: 04/21/17 19:12 04/21/17 19:12 04/21/17 04/21/17 19:12 19:12 WBC 5.4 RBC 2.67 L Hgb 8.7 L Hct 26.5 L MCV 99 H MCH 32.7 MCHC 33.0 RDW 17.1 H Plt Count 175 Seg Neutrophils % 69.4 Lymphocytes % 24.1 Monocytes % 4.9 Eosinophils % 1.3 Basophils % 0.3 Absolute Neutrophils 3.7 Absolute Lymphocytes 1.3 Absolute Monocytes 0.3 Absolute Eosinophils 0.1 Absolute Basophils 0.0 Sodium 141.3 Potassium 3.6 Chloride 111 H Carbon Dioxide 21 L Anion Gap 9 BUN 15 Creatinine 0.77 Est GFR ( Amer) > 60 Est GFR (Non-Af Amer) > 60 Glucose 145 H Calcium 7.9 L Total Bilirubin < 0.1 L AST 15 ALT 20 Alkaline Phosphatase 63 Total Protein 4.8 L Albumin 2.5 L Impressions: Chest X-Ray 04/13/17 18:42 IMPRESSION: RIGHT PERIHILAR INFILTRATE. NO CHANGE. Abdomen/Pelvis CT 04/13/17 20:58 IMPRESSION: 1. No acute findings. 2. Hepatomegaly. Chest/Abdomen CTA 04/13/17 20:58 IMPRESSION: 1. No pulmonary emboli. 2. Airspace opacities within the right lower lobe, may represent multifocal pneumonia. Radiographic follow-up recommended to ensure resolution exclude underlying neoplasm. 3. Mild mediastinal and hilar adenopathy.
[2017-04-22] MEDS: TRAZODONE HCL 50 MG TABLET PO SCH (19:57)
== END 2017-04-22 22:30 | DRG 871 ==
LOC: ER 18:28 → EH 23:18 → 3S 04-14 02:17
PROVIDERS: ADMIT Internal Medicine; ATTEND Internal Medicine
PROC: 30233N1 Transfusion of Nonautologous Red Blood Cells into Peripheral Vein, Percutaneous Approach (ICD-10-PCS; 2017-04-15)
PROC: 0DD78ZX Extraction of Stomach, Pylorus, Via Natural or Artificial Opening Endoscopic, Diagnostic (ICD-10-PCS; 2017-04-18)
PROC: 0DD98ZX Extraction of Duodenum, Via Natural or Artificial Opening Endoscopic, Diagnostic (ICD-10-PCS; principal; 2017-04-18 16:30)
DX: A41.9 Sepsis, unspecified organism (principal); J18.1 Lobar pneumonia, unspecified organism; K85.90 Acute pancreatitis without necrosis or infection, unspecified; N17.9 Acute kidney failure, unspecified; E87.2 Acidosis; E87.1 Hypo-osmolality and hyponatremia; N39.0 Urinary tract infection, site not specified; K86.1 Other chronic pancreatitis; E87.6 Hypokalemia; D64.9 Anemia, unspecified; J44.9 Chronic obstructive pulmonary disease, unspecified; K21.9 Gastro-esophageal reflux disease without esophagitis; K29.70 Gastritis, unspecified, without bleeding; Z90.49 Acquired absence of other specified parts of digestive tract; Z93.2 Ileostomy status; Z79.2 Long term (current) use of antibiotics; Z79.51 Long term (current) use of inhaled steroids; Z79.899 Other long term (current) drug therapy
CPT/HCPCS: 36415; 36430; 36591; 36600; 43239; 71045; 71275; 74177; 80048; 80053; 81001; 82272; 82803; 83605; 83690; 85025; 85027; 85610; 86256; 86850; 86900; 86901; 86920; 87040; 87086; 87088; 87186; 87493; 87804; 88305; 93005; 93010; 94640; 96361; 96365; 96374; 96375; 99284; 99291; J0171; J0692; J1610; J1642; J1650; J1956; J2250; J2310; J2405; J3010; J3370; J3480; J3490; J7030; J7040; P9016

== ENCOUNTER 2017-07-21 15:02 | Inpatient (IN) | payer MEDICARE, MEDICAID ==
[2017-07-21] MEDS ORDERED: NORMAL SALINE 1000 ML 1,000 ML IV ONE (15:18)
[2017-07-21] MEDS ORDERED: ONDANSETRON HCL INJ/PF 4 MG/2 ML SDV IV ONE ×2 (15:18→18:08)
--- NOTE | 2017-07-21 15:20 | ER Document Report ---
ED General - General TRAVEL OUTSIDE OF THE [place] IN LAST 30 DAYS: No <ALEXANDRA HELMS - Last Filed: 07/21/17 19:03> <BAHMAN PRITCHETT - Last Filed: 07/21/17 20:15> - General Stated Complaint: ABDOMINAL PAIN Time Seen by Provider: 07/21/17 15:09 - HPI Notes: Patient is a 71-year-old female with a history of Crohn's with ileostomy bag in place and recurrent pancreatitis who presents to the ED complaining of mid abdominal pain 4 days with decreased output into her ileostomy bag over the last day. Patient states that she has had 2 blockages in the past and believes that she might have another one starting. Patient states that she is still eating and drinking, but does have a decreased p.o. intake because of the pain and food worsens her pain as well. She is urinating normally. She otherwise has not had any other recent illness. The pain does not radiate. Denies any headache, fever, neck pain, URI, sore throat, chest pain, palpitations, syncope , cough, shortness of breath, wheeze, dyspnea, vomiting/diarrhea, urinary retention, dysuria, hematuria, loss of control of bowel or bladder, numbness/ tingling, saddle anesthesia, muscle paralysis/weakness, or rash. (ALEXANDRA HELMS) - Related Data Allergies/Adverse Reactions: codeine Allergy (Verified 03/15/17 15:38) naproxen Allergy (Verified 03/15/17 15:38) pregabalin [From Lyrica] Allergy (Verified 03/15/17 15:38) Past Medical History - Social History Smoking Status: Unknown if Ever Smoked Family History: Reviewed & Not Pertinent Pulmonary Medical History: Reports: Hx COPD Neurological Medical History: Denies: Hx Seizures Renal/ Medical History: Denies: Hx Peritoneal Dialysis GI Medical History: Reports: Hx Crohn's Disease, Hx Gastroesophageal Reflux Disease, Hx Colonoscopy, Hx Endoscopy Musculoskeltal Medical History: Reports Hx Arthritis, Reports Hx Musculoskeletal Deformity Skin Medical History: Reports Hx MRSA Psychiatric Medical History: Reports: Hx Depression Past Surgical History: Reports: Hx Abdominal Surgery - ileostomy, Hx Cholecystectomy, Hx Colostomy, Hx Hysterectomy, Hx Orthopedic Surgery - feet, Hx Rectal Surgery - removed, Other - Total colectomy - Immunizations Hx Diphtheria, Pertussis, Tetanus Vaccination: No Hx Pneumococcal Vaccination: 12/23/15 <ALEXANDRA HELMS - Last Filed: 07/21/17 19:03> Review of Systems - Review of Systems -: Yes All other systems reviewed and negative <ALEXANDRA HELMS - Last Filed: 07/21/17 19:03> Physical Exam <ALEXANDRA HELMS - Last Filed: 07/21/17 19:03> <BAHMAN PRITCHETT - Last Filed: 07/21/17 20:15> - Vital signs Vitals: Temp Pulse Resp BP Pulse Ox 98.2 F 68 20 148/67 H 91 L 07/21/17 15:03 07/21/17 15:03 07/21/17 15:03 07/21/17 15:03 07/21/17 15:03 - Notes Notes: PHYSICAL EXAMINATION: GENERAL: Well-appearing, well-nourished and in no acute distress. HEAD: Atraumatic, normocephalic. EYES: Pupils equal round and reactive to light, extraocular movements intact, sclera anicteric, conjunctiva are normal. ENT: Nares patent and without discharge. oropharynx clear without exudates. No tonsilar hypertrophy or erythema. Moist mucous membranes. NECK: Normal range of motion, supple without lymphadenopathy LUNGS: Breath sounds clear to auscultation bilaterally and equal. No wheezes rales or rhonchi. HEART: Regular rate and rhythm without murmurs, rubs, gallops. ABDOMEN: Soft, nondistended abdomen. no rebound. No masses appreciated. Normal bowel sounds present. No CVA tenderness bilaterally. + mid abd tenderness to palp. + mild guarding. Musculoskeletal: FROM to passive/active. Strength 5+/5. Extremities: No cyanosis, clubbing, or edema b/l. Peripheral pulses 2+. Capillary refill less than 3 seconds. NEUROLOGICAL: Normal speech, normal gait. Normal sensory, motor exams PSYCH: Normal mood, normal affect. SKIN: Warm, Dry, normal turgor, no rashes or lesions noted. (ALEXANDRA HELMS) Course - Laboratory Result Diagrams: 07/21/17 15:52 07/21/17 15:52 <ALEXANDRA HELMS - Last Filed: 07/21/17 19:03> - Laboratory Result Diagrams: 07/21/17 15:52 07/21/17 15:52 <BAHMAN PRITCHETT - Last Filed: 07/21/17 20:15> - Re-evaluation Re-evalutation: 07/21/17 15:[address] Pina, we will obtain a CT with oral/IV. 07/21/17 19:03 Patient is an afebrile, well-hydrated, 67-year-old female who presents to the ED currently with pancreatitis. CBC, CMP, urinalysis were otherwise unremarkable at this time. CT scan of the abdomen and pelvis with oral and IV is pending and will be done another half an hour. no new concerns or complaints. Transfer of care to Bahman PARRY (ALEXANDRA HELMS) 07/21/17 20:05 Patient reevaluated at bedside, she is complaining of pain, she states the pain medicine has not helped her much, she does take oxycodone 3 times a day at home. Given fentanyl. Patient does not appear toxic. CAT scan showing pancreatic inflammation with surrounding edema and fluid consistent with acute pancreatitis. Also shows ileus. No other acute findings. Patient vomiting with eating. Will discuss for admission. Called and spoke with Dr. Munroe, patient will be admitted to the IMCU full admission. Patient states understanding and agreement. (BAHMAN PRITCHETT) - Vital Signs Vital signs: Temp Pulse Resp BP Pulse Ox 98.2 F 68 20 148/67 H 91 L 07/21/17 15:03 07/21/17 15:03 07/21/17 15:03 07/21/17 15:03 07/21/17 15:03 - Laboratory Laboratory results interpreted by me: 07/21/17 07/21/17 07/21/17 15:35 15:52 15:52 RBC 3.69 L Hgb 11.8 L Hct 35.8 L Seg Neutrophils % 81.6 H Lymphocytes % 12.1 L Potassium 3.5 L Chloride 109 H BUN 28 H Est GFR (Non-Af Amer) 58 L Total Protein 5.7 L Albumin 2.9 L Lipase 4064.6 H Ur Leukocyte Esterase TRACE H Discharge <ALEXANDRA HELMS - Last Filed: 07/21/17 19:03> - Discharge Admitting Provider: [facility] Unit Admitted: IMCU <BAHMAN PRITCHETT - Last Filed: 07/21/17 20:15> - Discharge Clinical Impression: Ileus Abdominal pain Qualifiers: Abdominal location: generalized Qualified Code(s): R10.84 - Generalized abdominal pain Pancreatitis Qualifiers: Chronicity: acute Pancreatitis type: unspecified pancreatitis type Acute pancreatitis complication: unspecified Qualified Code(s): K85.90 - Acute pancreatitis without necrosis or infection, unspecified Vomiting Qualifiers: Vomiting type: unspecified Vomiting Intractability: non-intractable Nausea presence: with nausea Qualified Code(s): R11.2 - Nausea with vomiting, unspecified Condition: Stable Disposition: ADMITTED INPATIENT
[2017-07-21] MEDS ORDERED: MORPHINE SULFATE 10 MG/ML INJ IV ONE (15:24)
[2017-07-21] MEDS ORDERED: HYDROMORPHONE HCL INJ/PF 2 MG/ML AMPULE IV ONE ×3 (15:26→18:05)
[2017-07-21 16:07] LABS: APPEARANCE,URINE CLEAR; BILIRUBIN,URINE NEGATIVE (NEGATIVE); COLOR,URINE YELLOW; GLUCOSE, URINE NEGATIVE (NEGATIVE); KETONES,URINE NEGATIVE (NEGATIVE); LEUKOCYTE ESTERASE,URINE TRACE (NEGATIVE); NITRITE,URINE NEGATIVE (NEGATIVE); PROTEIN,URINE NEGATIVE (NEGATIVE); UROBILINOGEN,URINE NEGATIVE mg/dL (<2.0)
[2017-07-21 16:29] LABS: ABSOLUTE EOSINOPHILS # (AUTO) 0.1 10^3/uL (0.0-0.6); ABSOLUTE LYMPHOCYTES (AUTO) 1.2 10^3/uL (0.5-4.7); ABSOLUTE MONOCYTES (AUTO) 0.5 10^3/uL (0.1-1.4); BASOPHILS % (AUTO) 0.2 % (0-2); EOSINOPHILS % (AUTO) 0.7 % (0-6); HEMATOCRIT 35.8 % (36.0-47.0); HEMOGLOBIN 11.8 g/dL (12.0-15.5); LYMPHOCYTES % (AUTO) 12.1 % (13-45); MEAN CORPUSCULAR HEMOGLOBIN 31.9 pg (27.0-33.4); MEAN CORPUSCULAR HGB CONC 32.9 g/dL (32.0-36.0); MEAN CORPUSCULAR VOLUME 97 fl (80-97); MONOCYTES % (AUTO) 5.4 % (3-13); PLATELET COUNT 169 10^3/uL (150-450); RED BLOOD COUNT 3.69 10^6/uL (3.72-5.28); SEGMENTED NEUTROPHILS % (AUTO) 81.6 % (42-78); TOTAL CELLS COUNTED % (AUTO) 100 %; WHITE BLOOD COUNT 9.8 10^3/uL (4.0-10.5)
[2017-07-21 16:52] LABS: ALANINE AMINOTRANSFERASE 25 U/L (9-52); ALBUMIN 2.9 g/dL (3.5-5.0); ALKALINE PHOSPHATASE 122 U/L (38-126); ANION GAP 8 (5-19); ASPARTATE AMINO TRANSFERASE 19 U/L (14-36); BILIRUBIN,DIRECT 0.4 mg/dL (0.0-0.4); BILIRUBIN,TOTAL 0.4 mg/dL (0.2-1.3); BLOOD UREA NITROGEN 28 mg/dL (7-20); CALCIUM 8.9 mg/dL (8.4-10.2); CARBON DIOXIDE 24 mmol/L (22-30); CHLORIDE 109 mmol/L (98-107); GLUCOSE 89 mg/dL (75-110); POTASSIUM 3.5 mmol/L (3.6-5.0); TOTAL PROTEIN 5.7 g/dL (6.3-8.2)
[2017-07-21 17:18] LABS: LIPASE 4064.6 U/L (23-300)
[2017-07-21] MEDS: NORMAL SALINE 1000 ML 1,000 ML IV PRN ×2 (18:20→20:36)
--- NOTE | 2017-07-21 19:35 | RADIOLOGY REPORT (SQ) ---
EXAM DESCRIPTION: CT ABD/PELVIS WITH IV ORAL COMPLETED DATE/TIME: 07/21/2017 7:19 pm REASON FOR STUDY: abdominal pain COMPARISON: 06/28/2016 TECHNIQUE: CT scan of the abdomen and pelvis performed using helical scanning technique with dynamic intravenous contrast injection. Oral contrast. Images reviewed with lung, soft tissue, and bone win dows. Reconstructed coronal and sagittal MPR images reviewed. Delayed images for evaluation of the ur inary system also acquired. All images stored on PACS. All CT scanners at this facility use dose modulation, iterative reconstruction, and/or weight based d osing when appropriate to reduce radiation dose to as low as reasonably achievable (ALARA). [facility]: Dose Right [facility]: CareDose [facility]: Dose Right [facility]: Teradose 4D [facility]: OpenLabel CONTRAST TYPE AND DOSE: 62 Isovue 370- low osmolar. RENAL FUNCTION: Not recorded. RADIATION DOSE: . LIMITATIONS: None. FINDINGS: LOWER CHEST: No significant findings. No nodules or infiltrates. LIVER: Normal size. No masses. No dilated ducts. SPLEEN: Normal size. No focal lesions. PANCREAS: Significant pancreatic and peripancreatic edema is present. Mesenteric edema is present. No definable fluid collection is seen. GALLBLADDER: Surgically absent. ADRENAL GLANDS: No significant masses or asymmetry. RIGHT KIDNEY AND URETER: No solid masses. No significant calcifications. No hydronephrosis or hyd roureter. LEFT KIDNEY AND URETER: No solid masses. No significant calcifications. No hydronephrosis or hydr oureter. AORTA AND VESSELS: No aneurysm. No dissection. Renal arteries, SMA, celiac without stenosis. RETROPERITONEUM: No retroperitoneal adenopathy, hemorrhage or masses. BOWEL AND PERITONEAL CAVITY: The proximal small bowel is somewhat dilated. No bowel mass is seen. T he patient has had a colectomy. An ostomy is present in the left lower quadrant. APPENDIX: Surgically absent. PELVIS: No mass. No free fluid. Normal bladder. ABDOMINAL WALL: No masses. No hernias. BONES: No significant or acute findings. OTHER: No other significant finding. IMPRESSION: Acute pancreatitis. No pancreatic pseudocyst is appreciated at this time. There is con siderable peripancreatic and mesenteric edema. There is the appearance of an ileus involving the pro ximal small bowel. TECHNICAL DOCUMENTATION: JOB ID: [id number] Quality ID # [id number]: Final reports with documentation of one or more dose reduction techniques (e.g., Au tomated exposure control, adjustment of the mA and/or kV according to patient size, use of iterative reconstruction technique) 2010 [employer]- All Rights Reserved Reading location - IP/workstation name: [email or web address]
[2017-07-21] MEDS ORDERED: FENTANYL CITRATE INJ/PF 100 MCG/2 ML AMPUL IV ONE (20:12)
[2017-07-21] MEDS: DEXTROSE 5%-WATER 1000 ML 1,000 ML IV PRN (23:28)
[2017-07-21] MEDS: HYDROMORPHONE HCL INJ/PF 2 MG/ML AMPULE IV PRN (23:29)
[2017-07-21] MEDS: ONDANSETRON HCL INJ/PF 4 MG/2 ML SDV IV PRN (23:30)
[2017-07-22] MEDS: HYDROMORPHONE HCL INJ/PF 2 MG/ML AMPULE IV PRN ×5 (03:26→21:05)
[2017-07-22] MEDS: DEXTROSE 5%-WATER 1000 ML 1,000 ML IV PRN (09:10)
[2017-07-22] MEDS ORDERED: HYDROMORPHONE HCL INJ/PF 2 MG/ML AMPULE IV ONE ×2 (10:30→14:15)
[2017-07-22 11:31] LABS: ABSOLUTE EOSINOPHILS # (AUTO) 0.1 10^3/uL (0.0-0.6); ABSOLUTE LYMPHOCYTES (AUTO) 0.9 10^3/uL (0.5-4.7); ABSOLUTE MONOCYTES (AUTO) 0.6 10^3/uL (0.1-1.4); ABSOLUTE NEUT (AUTO) 6.6 10^3/uL (1.7-8.2); BASOPHILS % (AUTO) 0.1 % (0-2); EOSINOPHILS % (AUTO) 1.1 % (0-6); HEMATOCRIT 32.8 % (36.0-47.0); LYMPHOCYTES % (AUTO) 11.1 % (13-45); MEAN CORPUSCULAR HEMOGLOBIN 32.5 pg (27.0-33.4); MEAN CORPUSCULAR HGB CONC 33.6 g/dL (32.0-36.0); MEAN CORPUSCULAR VOLUME 97 fl (80-97); MONOCYTES % (AUTO) 7.2 % (3-13); PLATELET COUNT 140 10^3/uL (150-450); RED BLOOD COUNT 3.39 10^6/uL (3.72-5.28); RED CELL DISTRIBUTION WIDTH 13.1 % (11.5-14.0); SEGMENTED NEUTROPHILS % (AUTO) 80.5 % (42-78); TOTAL CELLS COUNTED % (AUTO) 100 %; WHITE BLOOD COUNT 8.2 10^3/uL (4.0-10.5)
[2017-07-22] MEDS ORDERED: MAG HYDROX/AL HYDROX/SIMETH SUSP 30 ML UDCUP PO PRN (11:47)
[2017-07-22] MEDS ORDERED: ONDANSETRON 4 MG TAB.RAPDIS PO PRN (11:47)
[2017-07-22] MEDS ORDERED: ALBUTEROL SULFATE HFA (90 MCG/PUFF) 8 GM MDI (1 MDI/ER DISP) IH PRN (11:47)
[2017-07-22] MEDS ORDERED: ALBUTEROL SULFATE HFA (90 MCG/PUFF) 200 PUFF/8.5 GM MDI IH PRN (11:56)
[2017-07-22] MEDS ORDERED: DEXTROSE 5%-NORMAL SALINE 1,000 ML with POTASSIUM CHLORIDE 40 MEQ IV PRN ×2 (12:10)
--- NOTE | 2017-07-22 12:10 | PDOC H&P ---
History of Present Illness Admission Date/PCP: 07/21/17 20:18 Dr. Arizmendi GI: Dr. Lambert History of Present Illness: The patient is a 67-year-old female with a history of Crohn's disease status post total colectomy and ileostomy. She has a history of recurrent pancreatitis. This is her third episode in the past 12 months. Past medical history: COPD Crohn's disease Depression Arthritis GERD Pancreatitis Past surgical history: Cholecystectomy Ileostomy Hysterectomy Total colectomy Outpatient medications: Tylenol extra strength every 4 hours as needed Ventolin HFA as needed Vitamin B12 1000 mcg monthly intramuscular Bentyl 20 mg 4 times a day Lomotil 2.5 mg every 4 hours Vitamin D 50,000 units once a week Guaifenesin as needed Creon 12,000 units 3 times a day Maalox every 6 hours as needed Omeprazole 40 mg daily Zofran 4 mg every 8 hours as needed Oxycodone 5 mg 3 times a day Potassium chloride 20 mEq twice a day Senna twice a day Trazodone 25 mg at bedtime Effexor 75 mg twice a day She presented to the hospital on July 21 complaining of a 6 day history of progressively worsening abdominal pain and nausea as well as abdominal distention. She says that her PCP is now Dr. Arizmendi and not Dr. Munroe. CT abdomen done in the emergency room shows pancreatitis, labs revealed elevated Lipase levels. Her pain is not controlled with 1 mg IV Dilausis and she is requesting a higher dose. Past Medical History Pulmonary Medical History: Reports: Chronic Obstructive Pulmonary Disease (COPD) GI Medical History: Reports: Crohn's Disease, Gastroesophageal Reflux Disease Musculoskeltal Medical History: Reports: Arthritis Psychiatric Medical History: Reports: Depression Past Surgical History Past Surgical History: Reports: Cholecystectomy, Colostomy, Hysterectomy, Orthopedic Surgery - feet, Other - Total colectomy Social History Information Source: Patient Smoking Status: Former Smoker Cigarettes Packs Per Day: 1 Number of Years Smokin Last Time Smoked: Frequency of Alcohol Use: None Hx Recreational Drug Use: No Drugs: None Hx Prescription Drug Abuse: No - Advance Directive Resuscitation Status: Full Code Family History Family History: Other - Asthma Parental Family History Reviewed: Yes Children Family History Reviewed: Yes Sibling(s) Family History Reviewed.: Yes Medication/Allergy Home Medications: RX: Acetaminophen [Tylenol Extra Strength 500 mg Tablet] 1 tab PO Q4HP PRN 03/15 RX: Albuterol Sulfate [Ventolin Hfa] 2 puff IH Q6HP PRN 03/15/17 RX: Cyanocobalamin (Vitamin B-12) [Vitamin B-12 Inj 1000 Mcg/1 ml Vial] 1,000 mcg IM .MONTHLY 03/15/17 RX: Dicyclomine HCl [Bentyl 20 mg Tablet] 20 mg PO QID 03/15/17 RX: Diphenoxylate HCl/Atrop Sulf [Lomotil 2.5 mg Tablet] 1 tab PO Q4HWA RX: Ergocalciferol (Vitamin D2) [Vitamin D2] 50,000 unit PO TH@1000 03/15/17 RX: Guaifenesin [Tussin] 10 ml PO Q6HP PRN 03/15/17 RX: Lipase/Protease/Amylase [Creon Dr 12,000 Units Capsule] 1 each PO Q8 RX: Mag Hydrox/Al Hydrox/Simeth [Maalox Suspension] 30 ml PO Q6HP PRN 03/15/17 RX: Omeprazole 40 mg PO DAILY 03/15/17 RX: Ondansetron [Zofran Odt 4 mg Tablet] 1 tab PO Q8HP PRN 03/15/17 RX: Potassium Chloride [Kaon-Cl 20 Meq/15 ml Udcup] 20 meq PO BID 03/15/17 RX: Sennosides [Senokot] 34.4 mg PO Q12 03/15/17 RX: Trazodone HCl [Desyrel 50 mg Tablet] 25 mg PO QHS 03/15/17 RX: Venlafaxine HCl [Effexor 75 mg Tablet] 75 mg PO Q12 03/15/17 RX: Guaifenesin/Dextromethorphan [Robitussin Cough-Chest Dm Liq] 5 ml PO Q6 PRN #60 ml 04/13/17 RX: Oxycodone HCl 5 mg PO TID 04/14/17 Allergies/Adverse Reactions: codeine Allergy (Verified 03/15/17 15:38) naproxen Allergy (Verified 03/15/17 15:38) pregabalin [From Lyrica] Allergy (Verified 03/15/17 15:38) Review of Systems Constitutional: ABSENT: fever(s) Eyes: ABSENT: visual disturbances Ears: ABSENT: hearing changes Nose, Mouth, and Throat: ABSENT: sore throat Cardiovascular: ABSENT: edema Respiratory: ABSENT: dyspnea Gastrointestinal: PRESENT: abdominal pain, nausea Genitourinary: ABSENT: dysuria Musculoskeletal: ABSENT: joint swelling Integumentary: ABSENT: pruritus Neurological: ABSENT: focal weakness Psychiatric: PRESENT: depression. ABSENT: hallucinations Endocrine: ABSENT: heat intolerance Hematologic/Lymphatic: ABSENT: easy bleeding Allergic/Immunologic: ABSENT: seasonal rhinorrhea Physical Exam Vital Signs: Temp Pulse Resp BP Pulse Ox 98.4 F 67 16 120/55 L 100 07/22/17 07:33 07/22/17 07:33 07/22/17 07:33 07/22/17 07:33 07/22/17 07:33 Intake & Output 07/21/17 07/22/17 07/23/17 06:59 06:59 06:59 Intake Total 750 Balance 750 Weight 57.9 kg General appearance: PRESENT: mild distress Head exam: PRESENT: normocephalic Eye exam: ABSENT: scleral icterus Ear exam: PRESENT: normal external ear exam Mouth exam: PRESENT: moist Teeth exam: PRESENT: edentulous Neck exam: ABSENT: tracheal deviation Respiratory exam: PRESENT: clear to auscultation heydi, symmetrical, unlabored. ABSENT: accessory muscle use Cardiovascular exam: PRESENT: RRR, other - R upper chest wall port present GI/Abdominal exam: PRESENT: normal bowel sounds, soft, tenderness, other - Ileostomy Rectal exam: PRESENT: deferred Extremities exam: ABSENT: pedal edema Musculoskeletal exam: PRESENT: normal inspection Neurological exam: PRESENT: alert, awake, oriented to person, oriented to place , oriented to time, oriented to situation Results Laboratory Results: 07/22/17 10:56 07/22/17 10:56 WBC 8.2 RBC 3.39 L Hgb 11.0 L Hct 32.8 L MCV 97 MCH 32.5 MCHC 33.6 RDW 13.1 Plt Count 140 L Seg Neutrophils % 80.5 H Lymphocytes % 11.1 L Monocytes % 7.2 Eosinophils % 1.1 Basophils % 0.1 Absolute Neutrophils 6.6 Absolute Lymphocytes 0.9 Absolute Monocytes 0.6 Absolute Eosinophils 0.1 Absolute Basophils 0.0 Impressions: Abdomen/Pelvis CT 07/21/17 00:00 IMPRESSION: Acute pancreatitis. No pancreatic pseudocyst is appreciated at this time. There is considerable peripancreatic and mesenteric edema. There is the appearance of an ileus involving the proximal small bowel. Assessment & Plan - Diagnosis (1) Acute pancreatitis Qualifiers: Pancreatitis type: unspecified pancreatitis type Acute pancreatitis complication: unspecified Qualified Code(s): K85.90 - Acute pancreatitis without necrosis or infection, unspecified Is this a current diagnosis for this admission?: Yes Plan: ? autoimmune associated with Crohn's. No history of alcohol use Check MRCP to r/o biliary duct stones. NPO, IV fluids Analgesics (2) Chronic pain syndrome Is this a current diagnosis for this admission?: Yes Plan: Dilaudid prn (3) Gastroesophageal reflux disease Qualifiers: Esophagitis presence: esophagitis presence not specified Qualified Code(s) : K21.9 - Gastro-esophageal reflux disease without esophagitis Is this a current diagnosis for this admission?: Yes Plan: Pantoprazole IV BID (4) Hypokalemia Is this a current diagnosis for this admission?: Yes Plan: Replete and continue to monitor (5) Ileostomy present Is this a current diagnosis for this admission?: Yes - Time Time Spent: Greater than 70 Minutes - Inpatient Certification Medical Necessity: Failure to Improve With Outpatient Therapy, Need For IV Fluids, Need for Pain Control, Risk of Complication if Not Cared For in Hospital
[2017-07-22] MEDS ORDERED: VENLAFAXINE HCL 75 MG TABLET PO ONE (12:30)
[2017-07-22] MEDS ORDERED: PANTOPRAZOLE SODIUM 40 MG VIAL IV ONE (12:30)
[2017-07-22] MEDS: POTASSI CL 40 MEQ/NS 1L 1,000 ML IV PRN ×2 (13:33→22:05)
[2017-07-22 15:55] LABS: ALANINE AMINOTRANSFERASE 25 U/L (9-52); ALBUMIN 2.4 g/dL (3.5-5.0); ALKALINE PHOSPHATASE 111 U/L (38-126); ANION GAP 9 (5-19); ASPARTATE AMINO TRANSFERASE 18 U/L (14-36); BILIRUBIN,DIRECT 0.4 mg/dL (0.0-0.4); BILIRUBIN,TOTAL 0.7 mg/dL (0.2-1.3); BLOOD UREA NITROGEN 16 mg/dL (7-20); CALCIUM 8.3 mg/dL (8.4-10.2); CARBON DIOXIDE 22 mmol/L (22-30); CHLORIDE 107 mmol/L (98-107); GLUCOSE 98 mg/dL (75-110); PHOSPHORUS 3.3 mg/dL (2.5-4.5); POTASSIUM 3.3 mmol/L (3.6-5.0); SODIUM 137.8 mmol/L (137-145); TOTAL PROTEIN 4.8 g/dL (6.3-8.2)
[2017-07-22 16:17] LABS: LIPASE 5460.4 U/L (23-300)
[2017-07-22] MEDS ORDERED: DIAZEPAM 5 MG TABLET PO PRN (16:30)
--- NOTE | 2017-07-22 18:14 | RADIOLOGY REPORT (SQ) ---
EXAM DESCRIPTION: MRI ABDOMEN WITHOUT COMPLETED DATE/TIME: 07/22/2017 5:21 pm REASON FOR STUDY: MRCP pancreatitis COMPARISON: CT 07/21/2017 TECHNIQUE: Noncontrast MRCP. Source and MIP images reviewed. LIMITATIONS: None. FINDINGS: GALLBLADDER: Surgically absent. INTRAHEPATIC DUCTS: Nondilated. EXTRAHEPATIC DUCTS: Common duct caliber is normal. Pancreatic duct poorly seen. Abrupt tapered narr owing of the distal common duct just proximal to the duodenum. No identified mass. No findings to s uggest stones. PANCREAS: No mass. Pancreatitis with peripancreatic fluid extending into the mesenteries, along the liver, along the flanks. LIVER, SPLEEN, KIDNEYS, ADRENALS: No significant abnormality. VESSELS: No evidence of aneurysm. Grossly appropriate flow voids in the major vascular structures. LUNG BASES: Grossly clear. OTHER: Ostomy. IMPRESSION: No evidence for common duct stone and no dilatation of the common duct. There is abrupt tapered narrowing of the duct just at the duodenum. Question stricture. No evidence for mass. Secondary changes related to pancreatitis including fluid around the pancreas, liver, mesenteric, and along the flanks. COMMENT: Consider functional study. TECHNICAL DOCUMENTATION: JOB ID: [id number] [employer]- All Rights Reserved Reading location - IP/workstation name: [email or web address]
[2017-07-22] MEDS: VENLAFAXINE HCL 75 MG TABLET PO SCH (21:04)
[2017-07-22] MEDS: PANTOPRAZOLE SODIUM 40 MG VIAL IV SCH (21:04)
[2017-07-22] MEDS: TRAZODONE HCL 50 MG TABLET PO SCH (21:04)
[2017-07-22] MEDS: ONDANSETRON HCL INJ/PF 4 MG/2 ML SDV IV PRN (21:15)
[2017-07-22] MEDS ORDERED: DIAZEPAM 5 MG TABLET PO ONE (21:45)
[2017-07-23] MEDS: HYDROMORPHONE HCL INJ/PF 2 MG/ML AMPULE IV PRN ×6 (00:39→20:01)
[2017-07-23 05:32] LABS: ALANINE AMINOTRANSFERASE 27 U/L (9-52); ALBUMIN 2.2 g/dL (3.5-5.0); ALKALINE PHOSPHATASE 113 U/L (38-126); ANION GAP 9 (5-19); ASPARTATE AMINO TRANSFERASE 16 U/L (14-36); BILIRUBIN,DIRECT 0.3 mg/dL (0.0-0.4); BILIRUBIN,TOTAL 0.6 mg/dL (0.2-1.3); BLOOD UREA NITROGEN 16 mg/dL (7-20); CALCIUM 8.2 mg/dL (8.4-10.2); CARBON DIOXIDE 20 mmol/L (22-30); CHLORIDE 112 mmol/L (98-107); GLUCOSE 68 mg/dL (75-110); POTASSIUM 4.2 mmol/L (3.6-5.0); TOTAL PROTEIN 4.5 g/dL (6.3-8.2)
[2017-07-23 05:41] LABS: LIPASE 2560.5 U/L (23-300)
[2017-07-23] MEDS: POTASSI CL 40 MEQ/NS 1L 1,000 ML IV PRN (06:51)
[2017-07-23] MEDS: MAGNESIUM SULFATE/D5W 1 GM/100 ML RTUPB IV SCH ×3 (08:07→10:15)
[2017-07-23] MEDS: POTASSI CL 20 MEQ/D5-1/2NS 1L 1,000 ML IV PRN ×2 (08:15→20:01)
[2017-07-23] MEDS: PANTOPRAZOLE SODIUM 40 MG VIAL IV SCH ×2 (10:15→21:23)
[2017-07-23] MEDS: VENLAFAXINE HCL 75 MG TABLET PO SCH ×2 (10:15→21:22)
--- NOTE | 2017-07-23 12:08 | PDOC PROGRESS REPORT ---
Subjective Progress Note for:: 07/23/17 Subjective:: 67 yr old female with Crohn's disease s/p total colectomy and has an ileostomy. H/o recurrent pancreatitis. P/w abdominal pain and was found to have pancreatitis on CT scan. Pain improving with IV Dilaudid and bowel rest. MRCP showed narrowing of CBD- she reports having had a stent placed there. Her vocational rehabilitation specialist is Dr. Lambert. Consultation requested. Reason For Visit: ABDOMINAL PAIN,PANCREATITIS Physical Exam Vital Signs: Temp Pulse Resp BP Pulse Ox 97.7 F 81 21 H 131/52 H 100 07/23/17 07:58 07/23/17 07:58 07/23/17 07:58 07/23/17 07:58 07/23/17 07:58 Intake & Output 07/22/17 07/23/17 07/24/17 06:59 06:59 06:59 Intake Total 750 2491 Output Total 200 Balance 750 2291 Weight 57.9 kg 59.3 kg General appearance: PRESENT: no acute distress Head exam: PRESENT: normocephalic Eye exam: ABSENT: scleral icterus Mouth exam: PRESENT: moist Teeth exam: PRESENT: edentulous Neck exam: ABSENT: tracheal deviation Respiratory exam: PRESENT: symmetrical, unlabored Cardiovascular exam: PRESENT: RRR GI/Abdominal exam: PRESENT: normal bowel sounds, soft, tenderness, other - Ileostomy Rectal exam: PRESENT: deferred Extremities exam: ABSENT: pedal edema Musculoskeletal exam: PRESENT: normal inspection Neurological exam: PRESENT: alert, awake, oriented to person, oriented to place Psychiatric exam: PRESENT: appropriate affect Skin exam: ABSENT: rash Results Laboratory Results: 07/22/17 10:56 07/23/17 04:30 07/22/17 07/23/17 10:56 04:30 Sodium 137.8 141.0 Potassium 3.3 L 4.2 Chloride 107 112 H Carbon Dioxide 22 20 L Anion Gap 9 9 BUN 16 16 Creatinine 0.79 0.79 Est GFR ( Amer) > 60 > 60 Est GFR (Non-Af Amer) > 60 > 60 Glucose 98 68 L Calcium 8.3 L 8.2 L Phosphorus 3.3 Magnesium 1.5 L Total Bilirubin 0.7 0.6 AST 18 16 ALT 25 27 Alkaline Phosphatase 111 113 Total Protein 4.8 L 4.5 L Albumin 2.4 L 2.2 L Lipase 5460.4 H 2560.5 H 07/22/17 10:56 NT-Pro-B Natriuret Pep 273 Impressions: Abdomen/Pelvis CT 07/21/17 00:00 IMPRESSION: Acute pancreatitis. No pancreatic pseudocyst is appreciated at this time. There is considerable peripancreatic and mesenteric edema. There is the appearance of an ileus involving the proximal small bowel. Abdomen MRI 07/22/17 00:00 IMPRESSION: No evidence for common duct stone and no dilatation of the common duct. There is abrupt tapered narrowing of the duct just at the duodenum. Question stricture. No evidence for mass. Secondary changes related to pancreatitis including fluid around the pancreas, liver, mesenteric, and along the flanks. Assessment & Plan - Diagnosis (1) Acute pancreatitis Qualifiers: Pancreatitis type: unspecified pancreatitis type Acute pancreatitis complication: unspecified Qualified Code(s): K85.90 - Acute pancreatitis without necrosis or infection, unspecified Is this a current diagnosis for this admission?: Yes Plan: ? autoimmune associated with Crohn's. No history of alcohol use NPO, IV fluids Analgesics. GI consult (2) Chronic pain syndrome Is this a current diagnosis for this admission?: Yes Plan: Dilaudid prn (3) Gastroesophageal reflux disease Qualifiers: Esophagitis presence: esophagitis presence not specified Qualified Code(s) : K21.9 - Gastro-esophageal reflux disease without esophagitis Is this a current diagnosis for this admission?: Yes Plan: Pantoprazole IV BID (4) Hypokalemia Is this a current diagnosis for this admission?: Yes Plan: Replete and continue to monitor (5) Ileostomy present Is this a current diagnosis for this admission?: Yes
[2017-07-23] MEDS: TRAZODONE HCL 50 MG TABLET PO SCH (21:22)
[2017-07-24] MEDS: HYDROMORPHONE HCL INJ/PF 2 MG/ML AMPULE IV PRN ×6 (00:27→21:34)
[2017-07-24] MEDS: POTASSI CL 20 MEQ/D5-1/2NS 1L 1,000 ML IV PRN ×2 (05:15→17:49)
[2017-07-24 06:34] LABS: ALANINE AMINOTRANSFERASE 24 U/L (9-52); ALBUMIN 1.8 g/dL (3.5-5.0); ALKALINE PHOSPHATASE 92 U/L (38-126); ANION GAP 8 (5-19); ASPARTATE AMINO TRANSFERASE 14 U/L (14-36); BILIRUBIN,DIRECT 0.2 mg/dL (0.0-0.4); BILIRUBIN,TOTAL 0.2 mg/dL (0.2-1.3); BLOOD UREA NITROGEN 11 mg/dL (7-20); CALCIUM 7.3 mg/dL (8.4-10.2); CARBON DIOXIDE 21 mmol/L (22-30); CHLORIDE 113 mmol/L (98-107); GLUCOSE 81 mg/dL (75-110); LIPASE 1095.1 U/L (23-300); POTASSIUM 3.5 mmol/L (3.6-5.0); SODIUM 141.9 mmol/L (137-145); TOTAL PROTEIN 3.9 g/dL (6.3-8.2)
[2017-07-24] MEDS: VENLAFAXINE HCL 75 MG TABLET PO SCH ×2 (09:42→21:34)
[2017-07-24] MEDS: PANTOPRAZOLE SODIUM 40 MG VIAL IV SCH ×2 (09:43→21:33)
[2017-07-24] MEDS ORDERED: POTASSIUM CHLORIDE 10 MEQ TABLET.SA PO ONE (10:00)
--- NOTE | 2017-07-24 11:01 | PDOC PROGRESS REPORT ---
Subjective Progress Note for:: 07/24/17 Subjective:: 67 yr old female with Crohn's disease s/p total colectomy and has an ileostomy. She has a history of recurrent pancreatitis- 3d episode in the past year P/w abdominal pain and was found to have pancreatitis on CT scan. Pain improving with IV Dilaudid and bowel rest. MRCP showed narrowing of CBD- she reports having had a stent placed there. Her medical van driver is Dr. Lambert. Consultation requested. Feels better overall. Reason For Visit: ABDOMINAL PAIN,PANCREATITIS Physical Exam Vital Signs: Temp Pulse Resp BP Pulse Ox 98.0 F 61 16 103/53 L 100 07/24/17 03:28 07/24/17 03:28 07/24/17 03:28 07/24/17 03:28 07/24/17 03:28 Intake & Output 07/23/17 07/24/17 07/25/17 06:59 06:59 06:59 Intake Total 2491 4296 Output Total 200 600 Balance 2291 3696 Weight 59.3 kg 60.3 kg General appearance: PRESENT: no acute distress, thin Head exam: PRESENT: normocephalic Eye exam: ABSENT: scleral icterus Mouth exam: PRESENT: moist Respiratory exam: PRESENT: symmetrical, unlabored. ABSENT: wheezes Cardiovascular exam: PRESENT: RRR GI/Abdominal exam: PRESENT: normal bowel sounds, soft, tenderness Rectal exam: PRESENT: deferred Extremities exam: ABSENT: pedal edema Neurological exam: PRESENT: alert, altered, awake, oriented to person, oriented to place Psychiatric exam: PRESENT: appropriate affect Skin exam: ABSENT: petechiae Results Laboratory Results: 07/22/17 10:56 07/24/17 05:35 07/24/17 05:35 Sodium 141.9 Potassium 3.5 L Chloride 113 H Carbon Dioxide 21 L Anion Gap 8 BUN 11 Creatinine 0.68 Est GFR ( Amer) > 60 Est GFR (Non-Af Amer) > 60 Glucose 81 Calcium 7.3 L Total Bilirubin 0.2 AST 14 ALT 24 Alkaline Phosphatase 92 Total Protein 3.9 L Albumin 1.8 L Lipase 1095.1 H 07/22/17 10:56 NT-Pro-B Natriuret Pep 273 Impressions: Abdomen/Pelvis CT 07/21/17 00:00 IMPRESSION: Acute pancreatitis. No pancreatic pseudocyst is appreciated at this time. There is considerable peripancreatic and mesenteric edema. There is the appearance of an ileus involving the proximal small bowel. Abdomen MRI 07/22/17 00:00 IMPRESSION: No evidence for common duct stone and no dilatation of the common duct. There is abrupt tapered narrowing of the duct just at the duodenum. Question stricture. No evidence for mass. Secondary changes related to pancreatitis including fluid around the pancreas, liver, mesenteric, and along the flanks. Assessment & Plan - Diagnosis (1) Acute pancreatitis Qualifiers: Pancreatitis type: unspecified pancreatitis type Acute pancreatitis complication: unspecified Qualified Code(s): K85.90 - Acute pancreatitis without necrosis or infection, unspecified Is this a current diagnosis for this admission?: Yes Plan: Suspect autoimmune associated with Crohn's. No history of alcohol use. Continue IV fluids, analgesics. Sips of clears as tolerated. GI consult (2) Chronic pain syndrome Is this a current diagnosis for this admission?: Yes Plan: Dilaudid prn (3) Gastroesophageal reflux disease Qualifiers: Esophagitis presence: esophagitis presence not specified Qualified Code(s) : K21.9 - Gastro-esophageal reflux disease without esophagitis Is this a current diagnosis for this admission?: Yes Plan: Pantoprazole IV BID (4) Hypokalemia Is this a current diagnosis for this admission?: Yes Plan: Replete and continue to monitor (5) Ileostomy present Is this a current diagnosis for this admission?: Yes - Time Time Spent with patient: 25-34 minutes
--- NOTE | 2017-07-24 13:50 | RADIOLOGY REPORT (SQ) ---
EXAM DESCRIPTION: KUB/ABDOMEN (SINGLE VIEW) COMPLETED DATE/TIME: 07/24/2017 1:19 pm REASON FOR STUDY: abdominal pain COMPARISON: CT abdomen pelvis 07/21/2017, 04/13/2017, 03/18/2017 MRI abdomen 07/22/2017 NUMBER OF VIEWS: One view. TECHNIQUE: Supine radiographic image of the abdomen acquired. LIMITATIONS: None. FINDINGS: BOWEL GAS PATTERN: There is air in a mildly distended stomach. Left lower quadrant ostomy is present. No dilated small bowel loops worrisome for obstruction. CALCIFICATIONS: No suspicious calcifications. SOFT TISSUES: No gross mass or suggestion of organomegaly. HARDWARE: Multiple surgical clips throughout the abdomen and pelvis from total colectomy. Left lower quadrant ostomy BONES: Osteopenic OTHER: No other significant finding. IMPRESSION: Post total colectomy with left lower quadrant ostomy. No dilated small bowel loops worr isome for small bowel obstruction. Stomach mildly distended which could be seen related to pancreati tis TECHNICAL DOCUMENTATION: JOB ID: [id number] [employer]- All Rights Reserved Reading location - IP/workstation name: [email or web address]
[2017-07-24] MEDS: DIPHENOXYLATE HCL/ATROP SULF 2.5-0.025 MG TABLET PO PRN (17:41)
[2017-07-24] MEDS: DICYCLOMINE HCL 20 MG TABLET PO PRN (17:41)
[2017-07-24] MEDS: TRAZODONE HCL 50 MG TABLET PO SCH (21:34)
[2017-07-25] MEDS: HYDROMORPHONE HCL INJ/PF 2 MG/ML AMPULE IV PRN ×5 (01:52→19:32)
[2017-07-25] MEDS: POTASSI CL 20 MEQ/D5-1/2NS 1L 1,000 ML IV PRN ×3 (03:20→21:33)
[2017-07-25 05:37] LABS: ALANINE AMINOTRANSFERASE 25 U/L (9-52); ALBUMIN 2.2 g/dL (3.5-5.0); ALKALINE PHOSPHATASE 110 U/L (38-126); ANION GAP 8 (5-19); ASPARTATE AMINO TRANSFERASE 16 U/L (14-36); BLOOD UREA NITROGEN 9 mg/dL (7-20); CALCIUM 8.7 mg/dL (8.4-10.2); CARBON DIOXIDE 24 mmol/L (22-30); CHLORIDE 110 mmol/L (98-107); GLUCOSE 91 mg/dL (75-110); POTASSIUM 3.9 mmol/L (3.6-5.0); SODIUM 142.1 mmol/L (137-145); TOTAL PROTEIN 4.5 g/dL (6.3-8.2)
[2017-07-25 05:44] LABS: LIPASE 1916.8 U/L (23-300)
[2017-07-25 05:47] LABS: BILIRUBIN,TOTAL < 0.1 mg/dL (0.2-1.3)
[2017-07-25] MEDS: VENLAFAXINE HCL 75 MG TABLET PO SCH ×2 (09:12→21:29)
[2017-07-25] MEDS: PANTOPRAZOLE SODIUM 40 MG VIAL IV SCH (09:12)
[2017-07-25] MEDS: DICYCLOMINE HCL 20 MG TABLET PO PRN ×2 (09:27→21:41)
[2017-07-25] MEDS: DIPHENOXYLATE HCL/ATROP SULF 2.5-0.025 MG TABLET PO PRN ×2 (09:27→21:41)
--- NOTE | 2017-07-25 10:42 | PDOC PROGRESS REPORT ---
Subjective Progress Note for:: 07/25/17 Subjective:: Patient still complaining of significant pain in the epigastrium She also is complaining of sciatica pain needlelike sharp pain from right-sided low back into the right lower extremity " like sciatica she had before ; no fever no chills" Reason For Visit: ABDOMINAL PAIN,PANCREATITIS Physical Exam Vital Signs: Temp Pulse Resp BP Pulse Ox 97.8 F 59 L 16 123/55 L 100 07/25/17 07:38 07/25/17 07:38 07/25/17 07:38 07/25/17 07:38 07/25/17 07:38 Intake & Output 07/24/17 07/25/17 07/26/17 00:59 00:59 00:59 Intake Total 4196 4397 1736 Output Total 600 Balance 3596 4397 1736 Weight 59.3 kg 60.3 kg 57.5 kg General appearance: PRESENT: no acute distress, well-developed, well-nourished Head exam: PRESENT: atraumatic, normocephalic Eye exam: PRESENT: conjunctiva pink, EOMI, PERRLA. ABSENT: scleral icterus Respiratory exam: PRESENT: clear to auscultation heydi. ABSENT: rales, rhonchi, wheezes Cardiovascular exam: PRESENT: RRR. ABSENT: diastolic murmur, rubs, systolic murmur Pulses: PRESENT: normal dorsalis pedis pul GI/Abdominal exam: PRESENT: distended, tenderness - Epigastrium without guarding or rebound Ileostomy bag in place Musculoskeletal exam: PRESENT: ambulatory, full ROM Neurological exam: PRESENT: alert, awake, oriented to person, oriented to place , oriented to time, oriented to situation, CN II-XII grossly intact. ABSENT: motor sensory deficit Skin exam: PRESENT: dry, intact, warm. ABSENT: cyanosis, rash Results Laboratory Results: 07/22/17 10:56 07/25/17 04:35 07/25/17 04:35 Sodium 142.1 Potassium 3.9 Chloride 110 H Carbon Dioxide 24 Anion Gap 8 BUN 9 Creatinine 0.75 Est GFR ( Amer) > 60 Est GFR (Non-Af Amer) > 60 Glucose 91 Calcium 8.7 Total Bilirubin < 0.1 L AST 16 ALT 25 Alkaline Phosphatase 110 Total Protein 4.5 L Albumin 2.2 L Lipase 1916.8 H 07/22/17 10:56 NT-Pro-B Natriuret Pep 273 Impressions: Abdomen/Pelvis CT 07/21/17 00:00 IMPRESSION: Acute pancreatitis. No pancreatic pseudocyst is appreciated at this time. There is considerable peripancreatic and mesenteric edema. There is the appearance of an ileus involving the proximal small bowel. Abdomen MRI 07/22/17 00:00 IMPRESSION: No evidence for common duct stone and no dilatation of the common duct. There is abrupt tapered narrowing of the duct just at the duodenum. Question stricture. No evidence for mass. Secondary changes related to pancreatitis including fluid around the pancreas, liver, mesenteric, and along the flanks. 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 No dilated small bowel loops worrisome for small bowel obstruction. Stomach mildly distended which could be seen related to pancreatitis Assessment & Plan - Diagnosis (1) Crohns disease Is this a current diagnosis for this admission?: Yes (2) Sciatica Is this a current diagnosis for this admission?: Yes Plan: Initiate steroids Prednisone 40 mg daily for 3 days (3) Acute pancreatitis Qualifiers: Pancreatitis type: unspecified pancreatitis type Acute pancreatitis complication: unspecified Qualified Code(s): K85.90 - Acute pancreatitis without necrosis or infection, unspecified Is this a current diagnosis for this admission?: Yes Plan: Improving some although the lipase is still elevated Continue low-fat diet Follow-up lipase in a.m. Resume Creon (4) Chronic pain syndrome Is this a current diagnosis for this admission?: Yes Plan: resumed oxycodone p.o Decrease Dilaudid IV. (5) Gastroesophageal reflux disease Qualifiers: Esophagitis presence: esophagitis presence not specified Qualified Code(s) : K21.9 - Gastro-esophageal reflux disease without esophagitis Is this a current diagnosis for this admission?: Yes (6) Hypokalemia Is this a current diagnosis for this admission?: Yes (7) Ileostomy present Is this a current diagnosis for this admission?: Yes (8) Common bile duct stricture Is this a current diagnosis for this admission?: Yes Plan: Status post stent MRI abdomen suggesting a stricture close to the duodenum We discussed the case with Dr. Lambert Patient to be followed up in his office after discharge - Time Time Spent with patient: 25-34 minutes - Plan Summary Plan Summary: Patient may be transferred to medical unit Out of bed PT consult
[2017-07-25] MEDS: ONDANSETRON HCL INJ/PF 4 MG/2 ML SDV IV PRN ×2 (10:48→15:22)
[2017-07-25] MEDS: PREDNISONE 20 MG TABLET PO SCH (10:54)
[2017-07-25] MEDS: LIPASE/PROTEASE/AMYLASE 1 CAP CAPSULE.DR PO SCH ×2 (13:49→21:29)
[2017-07-25] MEDS: OXYCODONE HCL IR 5 MG TABLET PO SCH ×2 (13:49→21:31)
--- NOTE | 2017-07-25 19:07 | PDOC CONSULTATION ---
Consultation Consult Date: 07/25/17 History of Present Illness Admission Date/PCP: 07/21/17 20:18 DOMINIQUE JOYA MD History of Present Illness: DONALD ALBRIGHT is a 67 year old female admitted on 07/21/2017 with abdominal pain and bloating that has been going on for about 4 days. On admission her lipase was 4000 going up to 5400 the next day and currently down to 1900. She did have some nausea but no vomiting. She does not drink alcohol. She had a CAT scan on admission that showed peripancreatic inflammation and this was also shown on subsequent MRCP. The MRCP showed no dilated ducts but there was narrowing of the common bile ducts at the level of the duodenum. Her LFTs have been normal. Patient has had multiple episodes of pancreatitis in the past as far back as 2011. She actually had an ERCP in January 2012 that showed mild dilation of the common bile duct. Sphincterotomy was performed at that time. The pancreatic duct was not cannulated. She was admitted in March of this year with a lipase of 20,000 but normal pancreas on 2 CAT scans. She also had a normal CAT scan in June 2016. An EGD was performed while she was in the hospital in April and this was normal. She does take multiple medications at home including hydrocodone that was started 4 months ago. She takes these for generalized pain. She also takes Creon. Currently she is still complains of some abdominal pain with no nausea or vomiting. She is moving her bowels and passing gas. She was started on clear liquids about 36-48 hours ago and this was advanced to full liquids this morning. She does have more pain with eating. Her vital signs remained stable Past Medical History Pulmonary Medical History: Reports: Chronic Obstructive Pulmonary Disease (COPD) Neurological Medical History: Denies: Seizures GI Medical History: Reports: Crohn's Disease, Gastroesophageal Reflux Disease Musculoskeltal Medical History: Reports: Arthritis Psychiatric Medical History: Reports: Depression Past Surgical History Past Surgical History: Reports: Cholecystectomy, Colostomy, Hysterectomy, Orthopedic Surgery - feet, Other - Total colectomy Social History Smoking Status: Unknown if Ever Smoked Cigarettes Packs Per Day: 1 Number of Years Smokin Last Time Smoked: Frequency of Alcohol Use: None Hx Recreational Drug Use: No Drugs: None Hx Prescription Drug Abuse: No - Advance Directive Resuscitation Status: Full Code Family History Family History: Reviewed & Not Pertinent Parental Family History Reviewed: No Children Family History Reviewed: NA Sibling(s) Family History Reviewed.: NA Medication/Allergy Home Medications: Cyanocobalamin (Vitamin B-12) [Vitamin B-12 Inj 1000 Mcg/1 ml Vial] 1,000 mcg IM [id number] 03/15/17 Dicyclomine HCl [Bentyl 20 mg Tablet] 20 mg PO QID 03/15/17 Diphenoxylate HCl/Atrop Sulf [Lomotil 2.5 mg Tablet] 1 tab PO Q4HWA 03/15/17 Ergocalciferol (Vitamin D2) [Vitamin D2] 50,000 unit PO TH@1000 03/15/17 Lipase/Protease/Amylase [Creon Dr 12,000 Units Capsule] 1 each PO Q8 03/15/17 Omeprazole 40 mg PO DAILY 03/15/17 Potassium Chloride [Kaon-Cl 20 Meq/15 ml Udcup] 20 meq PO BID 03/15/17 Trazodone HCl [Desyrel 50 mg Tablet] 50 mg PO QHS 03/15/17 Oxycodone HCl 10 mg PO TID 04/14/17 Cyclobenzaprine HCl [Flexeril 5 mg Tablet] 5 mg PO TID 07/22/17 Doxycycline Hyclate [Vibramycin] 100 mg PO BID 07/22/17 Gabapentin [Neurontin 300 mg Capsule] 300 mg PO Q12 07/22/17 Mupirocin 22 gm TP ASDIR PRN 07/22/17 Allergies/Adverse Reactions: codeine Allergy (Verified 03/15/17 15:38) naproxen Allergy (Verified 03/15/17 15:38) pregabalin [From Lyrica] Allergy (Verified 03/15/17 15:38) Review of Systems All systems: reviewed and no additional remarkable complaints except as stated Physical Exam Vital Signs: Temp Pulse Resp BP Pulse Ox 98.1 F 69 16 126/60 H 99 07/25/17 11:46 07/25/17 11:46 07/25/17 11:46 07/25/17 11:46 07/25/17 11:46 Intake & Output 07/24/17 07/25/17 07/26/17 06:59 06:59 06:59 Intake Total 4296 4633 3301 Output Total 600 Balance 3696 4633 3301 Weight 60.3 kg 57.5 kg Exam: General: Patient is alert and looks well. HEENT: There is no pallor or jaundice. PERRLA. Oropharynx normal Respiratory: No chest deformity. No respiratory distress. Chest wall palpitation was unremarkable. Breath sounds were normal Cardiovascular: Heart sounds 1 and 2 normal with no murmurs. Abdominal: Not distended. Soft with no significant tenderness. Liver and spleen not palpable. No ascites demonstrated. Bowel sounds active. She has an ileostomy Extremities: No edema Neurological: Alert and oriented x4. Grossly nonfocal. Normal speech Skin: No significant rash Psychological: Normal affect Results Laboratory Results: 07/22/17 10:56 07/25/17 04:35 07/25/17 04:35 Sodium 142.1 Potassium 3.9 Chloride 110 H Carbon Dioxide 24 Anion Gap 8 BUN 9 Creatinine 0.75 Est GFR ( Amer) > 60 Est GFR (Non-Af Amer) > 60 Glucose 91 Calcium 8.7 Total Bilirubin < 0.1 L AST 16 ALT 25 Alkaline Phosphatase 110 Total Protein 4.5 L Albumin 2.2 L Lipase 1916.8 H 07/22/17 10:56 NT-Pro-B Natriuret Pep 273 Impressions: Abdomen/Pelvis CT 07/21/17 00:00 IMPRESSION: Acute pancreatitis. No pancreatic pseudocyst is appreciated at this time. There is considerable peripancreatic and mesenteric edema. There is the appearance of an ileus involving the proximal small bowel. Abdomen MRI 07/22/17 00:00 IMPRESSION: No evidence for common duct stone and no dilatation of the common duct. There is abrupt tapered narrowing of the duct just at the duodenum. Question stricture. No evidence for mass. Secondary changes related to pancreatitis including fluid around the pancreas, liver, mesenteric, and along the flanks. 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 No dilated small bowel loops worrisome for small bowel obstruction. Stomach mildly distended which could be seen related to pancreatitis Assessment & Plan - Diagnosis (1) Pancreatitis Qualifiers: Chronicity: acute Pancreatitis type: unspecified pancreatitis type Acute pancreatitis complication: unspecified Qualified Code(s): K85.90 - Acute pancreatitis without necrosis or infection, unspecified Is this a current diagnosis for this admission?: Yes Plan: She was admitted with significant acute pancreatitis with pancreatic, mesenteric and peripancreatic edema. Her MRI also shows fluid around the liver and along the flanks. She is having some more pain with full liquid diet and this will be changed back to clear liquids. I will increase her IV fluid to 150 an hour for now. The etiology for her recurrent pancreatitis is unclear on previous ERCP 6 years ago was not conclusive. She has had episodes of elevated lipase in the past without radiologic evidence for pancreatitis. Medication may be a possible reason for her pancreatitis. I will refer her for endoscopic ultrasound after this admission to rule out neoplasm. (2) Abnormal MRI of abdomen Is this a current diagnosis for this admission?: Yes (3) Abdominal pain Qualifiers: Abdominal location: generalized Qualified Code(s): R10.84 - Generalized abdominal pain Is this a current diagnosis for this admission?: Yes (4) Acute pancreatitis Qualifiers: Pancreatitis type: unspecified pancreatitis type Acute pancreatitis complication: unspecified Qualified Code(s): K85.90 - Acute pancreatitis without necrosis or infection, unspecified Is this a current diagnosis for this admission?: Yes (5) Ileostomy present Is this a current diagnosis for this admission?: Yes
[2017-07-25] MEDS: TRAZODONE HCL 50 MG TABLET PO SCH (21:29)
[2017-07-25] MEDS: GABAPENTIN 300 MG CAPSULE PO SCH (21:30)
[2017-07-26] MEDS: HYDROMORPHONE HCL INJ/PF 2 MG/ML AMPULE IV PRN ×5 (02:11→20:02)
[2017-07-26] MEDS: OXYCODONE HCL IR 5 MG TABLET PO SCH ×3 (05:23→21:08)
[2017-07-26] MEDS: LIPASE/PROTEASE/AMYLASE 1 CAP CAPSULE.DR PO SCH ×3 (05:24→21:09)
[2017-07-26] MEDS: POTASSI CL 20 MEQ/D5-1/2NS 1L 1,000 ML IV PRN ×3 (05:24→23:32)
[2017-07-26 06:20] LABS: ABSOLUTE MONOCYTES (AUTO) 0.4 10^3/uL (0.1-1.4); ABSOLUTE NEUT (AUTO) 4.3 10^3/uL (1.7-8.2); BASOPHILS % (AUTO) 0.3 % (0-2); EOSINOPHILS % (AUTO) 0.6 % (0-6); HEMATOCRIT 27.2 % (36.0-47.0); LYMPHOCYTES % (AUTO) 17.8 % (13-45); MEAN CORPUSCULAR HGB CONC 32.9 g/dL (32.0-36.0); MEAN CORPUSCULAR VOLUME 97 fl (80-97); MONOCYTES % (AUTO) 6.5 % (3-13); PLATELET COUNT 125 10^3/uL (150-450); RED CELL DISTRIBUTION WIDTH 13.1 % (11.5-14.0); SEGMENTED NEUTROPHILS % (AUTO) 74.8 % (42-78); TOTAL CELLS COUNTED % (AUTO) 100 %; WHITE BLOOD COUNT 5.8 10^3/uL (4.0-10.5)
[2017-07-26 06:24] LABS: ALANINE AMINOTRANSFERASE 25 U/L (9-52); ALBUMIN 2.4 g/dL (3.5-5.0); ALKALINE PHOSPHATASE 95 U/L (38-126); ASPARTATE AMINO TRANSFERASE 19 U/L (14-36); BLOOD UREA NITROGEN 10 mg/dL (7-20); CALCIUM 8.7 mg/dL (8.4-10.2); CARBON DIOXIDE 26 mmol/L (22-30); GLUCOSE 119 mg/dL (75-110); POTASSIUM 3.9 mmol/L (3.6-5.0); SODIUM 140.9 mmol/L (137-145); TOTAL PROTEIN 4.8 g/dL (6.3-8.2)
[2017-07-26 06:26] LABS: ANION GAP 6 (5-19); CHLORIDE 109 mmol/L (98-107)
[2017-07-26 06:29] LABS: BILIRUBIN,TOTAL < 0.1 mg/dL (0.2-1.3)
[2017-07-26 06:31] LABS: LIPASE 2979.7 U/L (23-300)
[2017-07-26] MEDS: GABAPENTIN 300 MG CAPSULE PO SCH ×2 (09:11→21:08)
[2017-07-26] MEDS: VENLAFAXINE HCL 75 MG TABLET PO SCH ×2 (09:12→21:09)
--- NOTE | 2017-07-26 09:33 | PDOC PROGRESS REPORT ---
Subjective Progress Note for:: 07/26/17 Subjective:: 07/25 Patient still complaining of significant pain in the epigastrium She also is complaining of sciatica pain needlelike sharp pain from right-sided low back into the right lower extremity " like sciatica she had before ; no fever no chills" 07/26 feels better back on clear liquids as abdominal pain reccured and lipase was over 2000 sciatica slightly improved Reason For Visit: ABDOMINAL PAIN,PANCREATITIS Physical Exam Vital Signs: Temp Pulse Resp BP Pulse Ox 98.0 F 65 16 135/52 H 100 07/26/17 08:01 07/26/17 08:01 07/26/17 08:01 07/26/17 08:01 07/26/17 08:01 Intake & Output 07/25/17 07/26/17 07/27/17 00:59 00:59 00:59 Intake Total 4397 5274 1736 Balance 4397 5274 1736 Weight 60.3 kg 57.5 kg 58 kg General appearance: PRESENT: no acute distress, well-developed, well-nourished Head exam: PRESENT: atraumatic, normocephalic Eye exam: PRESENT: conjunctiva pink, EOMI, PERRLA. ABSENT: scleral icterus Respiratory exam: PRESENT: clear to auscultation heydi. ABSENT: rales, rhonchi, wheezes Cardiovascular exam: PRESENT: RRR. ABSENT: diastolic murmur, rubs, systolic murmur Pulses: PRESENT: normal dorsalis pedis pul GI/Abdominal exam: PRESENT: distended, tenderness - Epigastrium without guarding or rebound Ileostomy bag in place Musculoskeletal exam: PRESENT: ambulatory, full ROM Neurological exam: PRESENT: alert, awake, oriented to person, oriented to place , oriented to time, oriented to situation, CN II-XII grossly intact. ABSENT: motor sensory deficit Skin exam: PRESENT: dry, intact, warm. ABSENT: cyanosis, rash Results Laboratory Results: 07/26/17 06:00 07/26/17 06:00 07/26/17 07/26/17 06:00 06:00 WBC 5.8 RBC 2.80 L Hgb 9.0 L Hct 27.2 L MCV 97 MCH 32.0 MCHC 32.9 RDW 13.1 Plt Count 125 L Seg Neutrophils % 74.8 Lymphocytes % 17.8 Monocytes % 6.5 Eosinophils % 0.6 Basophils % 0.3 Absolute Neutrophils 4.3 Absolute Lymphocytes 1.0 Absolute Monocytes 0.4 Absolute Eosinophils 0.0 Absolute Basophils 0.0 Sodium 140.9 Potassium 3.9 Chloride 109 H Carbon Dioxide 26 Anion Gap 6 BUN 10 Creatinine 0.79 Est GFR ( Amer) > 60 Est GFR (Non-Af Amer) > 60 Glucose 119 H Calcium 8.7 Total Bilirubin < 0.1 L AST 19 ALT 25 Alkaline Phosphatase 95 Total Protein 4.8 L Albumin 2.4 L Lipase 2979.7 H 07/22/17 10:56 NT-Pro-B Natriuret Pep 273 Impressions: Abdomen/Pelvis CT 07/21/17 00:00 IMPRESSION: Acute pancreatitis. No pancreatic pseudocyst is appreciated at this time. There is considerable peripancreatic and mesenteric edema. There is the appearance of an ileus involving the proximal small bowel. Abdomen MRI 07/22/17 00:00 IMPRESSION: No evidence for common duct stone and no dilatation of the common duct. There is abrupt tapered narrowing of the duct just at the duodenum. Question stricture. No evidence for mass. Secondary changes related to pancreatitis including fluid around the pancreas, liver, mesenteric, and along the flanks. 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 No dilated small bowel loops worrisome for small bowel obstruction. Stomach mildly distended which could be seen related to pancreatitis Assessment & Plan - Diagnosis (1) Crohns disease Is this a current diagnosis for this admission?: Yes (2) Sciatica Is this a current diagnosis for this admission?: Yes Plan: Initiate steroids Prednisone 40 mg daily for 3 days (3) Acute pancreatitis Qualifiers: Pancreatitis type: unspecified pancreatitis type Acute pancreatitis complication: unspecified Qualified Code(s): K85.90 - Acute pancreatitis without necrosis or infection, unspecified Is this a current diagnosis for this admission?: Yes Plan: Improving some although the lipase is still elevated Continue low-fat diet Follow-up lipase in a.m. Resume Creon (4) Chronic pain syndrome Is this a current diagnosis for this admission?: Yes Plan: resumed oxycodone p.o Decrease Dilaudid IV. (5) Gastroesophageal reflux disease Qualifiers: Esophagitis presence: esophagitis presence not specified Qualified Code(s) : K21.9 - Gastro-esophageal reflux disease without esophagitis Is this a current diagnosis for this admission?: Yes (6) Hypokalemia Is this a current diagnosis for this admission?: Yes (7) Ileostomy present Is this a current diagnosis for this admission?: Yes (8) Common bile duct stricture Is this a current diagnosis for this admission?: Yes Plan: Status post stent MRI abdomen suggesting a stricture close to the duodenum We discussed the case with Dr. Lambert Patient to be followed up in his office after discharge - Time Time Spent with patient: will transfer to medical unit continue clear liquids po follow up labs Time Spent with patient: 25-34 minutes
[2017-07-26] MEDS: DIPHENOXYLATE HCL/ATROP SULF 2.5-0.025 MG TABLET PO SCH ×4 (10:01→21:08)
[2017-07-26] MEDS: DICYCLOMINE HCL 20 MG TABLET PO SCH ×4 (10:01→21:09)
[2017-07-26] MEDS: PREDNISONE 20 MG TABLET PO SCH (11:08)
[2017-07-26] MEDS: ONDANSETRON HCL INJ/PF 4 MG/2 ML SDV IV PRN (15:59)
[2017-07-26] MEDS: TRAZODONE HCL 50 MG TABLET PO SCH (21:08)
[2017-07-27] MEDS: HYDROMORPHONE HCL INJ/PF 2 MG/ML AMPULE IV PRN ×3 (00:04→09:53)
[2017-07-27] MEDS: OXYCODONE HCL IR 5 MG TABLET PO SCH ×3 (05:07→21:30)
[2017-07-27] MEDS: LIPASE/PROTEASE/AMYLASE 1 CAP CAPSULE.DR PO SCH ×3 (05:08→21:30)
[2017-07-27] MEDS: DIPHENOXYLATE HCL/ATROP SULF 2.5-0.025 MG TABLET PO SCH ×5 (05:08→21:29)
[2017-07-27] MEDS: POTASSI CL 20 MEQ/D5-1/2NS 1L 1,000 ML IV PRN ×3 (05:12→21:31)
[2017-07-27] MEDS: GABAPENTIN 300 MG CAPSULE PO SCH ×2 (09:53→21:31)
[2017-07-27] MEDS: DICYCLOMINE HCL 20 MG TABLET PO SCH ×4 (09:53→21:31)
[2017-07-27] MEDS: VENLAFAXINE HCL 75 MG TABLET PO SCH ×2 (09:53→21:30)
[2017-07-27] MEDS: PREDNISONE 20 MG TABLET PO SCH (12:13)
[2017-07-27 12:38] LABS: ABSOLUTE LYMPHOCYTES (AUTO) 1.4 10^3/uL (0.5-4.7); ABSOLUTE MONOCYTES (AUTO) 0.4 10^3/uL (0.1-1.4); ABSOLUTE NEUT (AUTO) 3.9 10^3/uL (1.7-8.2); BASOPHILS % (AUTO) 0.2 % (0-2); EOSINOPHILS % (AUTO) 0.8 % (0-6); HEMATOCRIT 29.7 % (36.0-47.0); HEMOGLOBIN 9.8 g/dL (12.0-15.5); LYMPHOCYTES % (AUTO) 24.3 % (13-45); MEAN CORPUSCULAR HGB CONC 32.9 g/dL (32.0-36.0); MEAN CORPUSCULAR VOLUME 97 fl (80-97); MONOCYTES % (AUTO) 7.1 % (3-13); PLATELET COUNT 146 10^3/uL (150-450); RED BLOOD COUNT 3.06 10^6/uL (3.72-5.28); RED CELL DISTRIBUTION WIDTH 13.1 % (11.5-14.0); SEGMENTED NEUTROPHILS % (AUTO) 67.6 % (42-78); TOTAL CELLS COUNTED % (AUTO) 100 %; WHITE BLOOD COUNT 5.8 10^3/uL (4.0-10.5)
[2017-07-27 12:54] LABS: ANION GAP 11 (5-19); BLOOD UREA NITROGEN 7 mg/dL (7-20); CALCIUM 8.9 mg/dL (8.4-10.2); CARBON DIOXIDE 21 mmol/L (22-30); CHLORIDE 111 mmol/L (98-107); GLUCOSE 136 mg/dL (75-110); IRON(TIBC) 53.9 ug/dL (37-170); LIPASE 1289.7 U/L (23-300); POTASSIUM 3.6 mmol/L (3.6-5.0); SODIUM 143.1 mmol/L (137-145)
[2017-07-27] MEDS ORDERED: CYANOCOBALAMIN (VITAMIN B-12) 1,000 MCG TABLET PO ONE (15:00)
[2017-07-27] MEDS: OXYCODONE HCL IR 5 MG TABLET PO PRN ×2 (17:41→21:30)
[2017-07-27] MEDS: CYANOCOBALAMIN (VITAMIN B-12) INJ 1000 MCG/1 ML VIAL IM SCH (17:43)
--- NOTE | 2017-07-27 19:19 | PDOC PROGRESS REPORT ---
Subjective Progress Note for:: 07/27/17 Subjective:: 07/25 Patient still complaining of significant pain in the epigastrium She also is complaining of sciatica pain needlelike sharp pain from right-sided low back into the right lower extremity " like sciatica she had before ; no fever no chills" 07/26 feels better back on clear liquids as abdominal pain reccured and lipase was over 2000 sciatica slightly improved 07/27 Improved Lipase just over thousand Increase diet Reason For Visit: ABDOMINAL PAIN,PANCREATITIS Physical Exam Vital Signs: Temp Pulse Resp BP Pulse Ox 98.7 F 64 16 148/64 H 99 07/27/17 17:34 07/27/17 17:34 07/27/17 17:34 07/27/17 17:34 07/27/17 17:34 Intake & Output 07/26/17 07/27/17 07/28/17 00:59 00:59 00:59 Intake Total 5274 6691 3118 Balance 5274 6691 3118 Weight 57.5 kg 58 kg 55.9 kg General appearance: PRESENT: no acute distress, well-developed, well-nourished Head exam: PRESENT: atraumatic, normocephalic Eye exam: PRESENT: conjunctiva pink, EOMI, PERRLA. ABSENT: scleral icterus Respiratory exam: PRESENT: clear to auscultation heydi. ABSENT: rales, rhonchi, wheezes Cardiovascular exam: PRESENT: RRR. ABSENT: diastolic murmur, rubs, systolic murmur Pulses: PRESENT: normal dorsalis pedis pul GI/Abdominal exam: PRESENT: distended, tenderness - Epigastrium without guarding or rebound Ileostomy bag in place Musculoskeletal exam: PRESENT: ambulatory, full ROM Neurological exam: PRESENT: alert, awake, oriented to person, oriented to place , oriented to time, oriented to situation, CN II-XII grossly intact. ABSENT: motor sensory deficit Skin exam: PRESENT: dry, intact, warm. ABSENT: cyanosis, rash Results Laboratory Results: 07/27/17 12:15 07/27/17 12:15 07/27/17 07/27/17 12:15 12:15 WBC 5.8 RBC 3.06 L Hgb 9.8 L Hct 29.7 L MCV 97 MCH 32.0 MCHC 32.9 RDW 13.1 Plt Count 146 L Seg Neutrophils % 67.6 Lymphocytes % 24.3 Monocytes % 7.1 Eosinophils % 0.8 Basophils % 0.2 Absolute Neutrophils 3.9 Absolute Lymphocytes 1.4 Absolute Monocytes 0.4 Absolute Eosinophils 0.0 Absolute Basophils 0.0 Sodium 143.1 Potassium 3.6 Chloride 111 H Carbon Dioxide 21 L Anion Gap 11 BUN 7 Creatinine 0.77 Est GFR ( Amer) > 60 Est GFR (Non-Af Amer) > 60 Glucose 136 H Calcium 8.9 Iron 53.9 TIBC 349 % Saturation 15 Ferritin 40.70 Lipase 1289.7 H Vitamin B12 376.0 Folate 10.50 07/22/17 10:56 NT-Pro-B Natriuret Pep 273 Impressions: Abdomen/Pelvis CT 07/21/17 00:00 IMPRESSION: Acute pancreatitis. No pancreatic pseudocyst is appreciated at this time. There is considerable peripancreatic and mesenteric edema. There is the appearance of an ileus involving the proximal small bowel. Abdomen MRI 07/22/17 00:00 IMPRESSION: No evidence for common duct stone and no dilatation of the common duct. There is abrupt tapered narrowing of the duct just at the duodenum. Question stricture. No evidence for mass. Secondary changes related to pancreatitis including fluid around the pancreas, liver, mesenteric, and along the flanks. 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 No dilated small bowel loops worrisome for small bowel obstruction. Stomach mildly distended which could be seen related to pancreatitis Assessment & Plan - Diagnosis (1) Crohns disease Is this a current diagnosis for this admission?: Yes (2) Sciatica Is this a current diagnosis for this admission?: Yes (3) Acute pancreatitis Qualifiers: Pancreatitis type: unspecified pancreatitis type Acute pancreatitis complication: unspecified Qualified Code(s): K85.90 - Acute pancreatitis without necrosis or infection, unspecified Is this a current diagnosis for this admission?: Yes Plan: We will decrease pain meds Discontinue Dilaudid Increase diet (4) Chronic pain syndrome Is this a current diagnosis for this admission?: Yes (5) Gastroesophageal reflux disease Qualifiers: Esophagitis presence: esophagitis presence not specified Qualified Code(s) : K21.9 - Gastro-esophageal reflux disease without esophagitis Is this a current diagnosis for this admission?: Yes (6) Hypokalemia Is this a current diagnosis for this admission?: Yes (7) Ileostomy present Is this a current diagnosis for this admission?: Yes (8) Common bile duct stricture Is this a current diagnosis for this admission?: Yes - Time Time Spent with patient: Patient may be discharged in a.m. if she continues to improve Time Spent with patient: 15-24 minutes
[2017-07-27] MEDS: TRAZODONE HCL 50 MG TABLET PO SCH (21:29)
[2017-07-28] MEDS: POTASSI CL 20 MEQ/D5-1/2NS 1L 1,000 ML IV PRN ×3 (05:29→19:19)
[2017-07-28] MEDS: OXYCODONE HCL IR 5 MG TABLET PO PRN ×5 (05:34→21:40)
[2017-07-28] MEDS: OXYCODONE HCL IR 5 MG TABLET PO SCH ×3 (05:34→21:39)
[2017-07-28] MEDS: LIPASE/PROTEASE/AMYLASE 1 CAP CAPSULE.DR PO SCH ×3 (05:35→21:38)
[2017-07-28] MEDS: DIPHENOXYLATE HCL/ATROP SULF 2.5-0.025 MG TABLET PO SCH ×5 (05:35→21:38)
[2017-07-28 06:13] LABS: ANION GAP 8 (5-19); BLOOD UREA NITROGEN 10 mg/dL (7-20); CALCIUM 8.8 mg/dL (8.4-10.2); CARBON DIOXIDE 25 mmol/L (22-30); CHLORIDE 110 mmol/L (98-107); GLUCOSE 90 mg/dL (75-110); LIPASE 1230.8 U/L (23-300); SODIUM 142.9 mmol/L (137-145)
[2017-07-28] MEDS: VENLAFAXINE HCL 75 MG TABLET PO SCH ×2 (09:51→21:39)
[2017-07-28] MEDS: DICYCLOMINE HCL 20 MG TABLET PO SCH ×4 (09:51→21:38)
[2017-07-28] MEDS: GABAPENTIN 300 MG CAPSULE PO SCH ×2 (09:51→21:39)
[2017-07-28] MEDS ORDERED: CYANOCOBALAMIN (VITAMIN B-12) 1,000 MCG TABLET PO SCH (10:00)
[2017-07-28] MEDS: PREDNISONE 20 MG TABLET PO SCH (11:34)
--- NOTE | 2017-07-28 14:08 | PDOC PROGRESS REPORT ---
Subjective Progress Note for:: 07/28/17 Subjective:: Patient is feeling a lot better today she has some epigastric discomfort after eating But otherwise is much more comfortable she has not needed any Dilaudid IV Patient likely will be discharged in a.m. Repeat lipase today is around thousand Reason For Visit: ABDOMINAL PAIN,PANCREATITIS Physical Exam Vital Signs: Temp Pulse Resp BP Pulse Ox 97.8 F 68 16 142/85 H 98 07/28/17 12:16 07/28/17 12:16 07/28/17 12:16 07/28/17 12:16 07/28/17 12:16 Intake & Output 07/27/17 07/28/17 07/29/17 00:59 00:59 00:59 Intake Total 6691 5810 1650 Balance 6691 5810 1650 Weight 58 kg 55.9 kg 57.4 kg General appearance: PRESENT: no acute distress, well-developed, well-nourished Head exam: PRESENT: atraumatic, normocephalic Eye exam: PRESENT: conjunctiva pink, EOMI, PERRLA. ABSENT: scleral icterus Respiratory exam: PRESENT: clear to auscultation heydi. ABSENT: rales, rhonchi, wheezes Cardiovascular exam: PRESENT: RRR. ABSENT: diastolic murmur, rubs, systolic murmur Pulses: PRESENT: normal dorsalis pedis pul GI/Abdominal exam: PRESENT: distended, tenderness - Epigastrium without guarding or rebound Ileostomy bag in place Musculoskeletal exam: PRESENT: ambulatory, full ROM Neurological exam: PRESENT: alert, awake, oriented to person, oriented to place , oriented to time, oriented to situation, CN II-XII grossly intact. ABSENT: motor sensory deficit Skin exam: PRESENT: dry, intact, warm. ABSENT: cyanosis, rash Results Laboratory Results: 07/27/17 12:15 07/28/17 05:40 07/27/17 07/28/17 12:15 05:40 Sodium 143.1 142.9 Potassium 3.6 4.0 Chloride 111 H 110 H Carbon Dioxide 21 L 25 Anion Gap 11 8 BUN 7 10 Creatinine 0.77 0.87 Est GFR ( Amer) > 60 > 60 Est GFR (Non-Af Amer) > 60 > 60 Glucose 136 H 90 Calcium 8.9 8.8 Iron 53.9 TIBC 349 % Saturation 15 Ferritin 40.70 Lipase 1289.7 H 1230.8 H Vitamin B12 376.0 Folate 10.50 07/22/17 10:56 NT-Pro-B Natriuret Pep 273 Impressions: Abdomen/Pelvis CT 07/21/17 00:00 IMPRESSION: Acute pancreatitis. No pancreatic pseudocyst is appreciated at this time. There is considerable peripancreatic and mesenteric edema. There is the appearance of an ileus involving the proximal small bowel. Abdomen MRI 07/22/17 00:00 IMPRESSION: No evidence for common duct stone and no dilatation of the common duct. There is abrupt tapered narrowing of the duct just at the duodenum. Question stricture. No evidence for mass. Secondary changes related to pancreatitis including fluid around the pancreas, liver, mesenteric, and along the flanks. 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 No dilated small bowel loops worrisome for small bowel obstruction. Stomach mildly distended which could be seen related to pancreatitis Assessment & Plan - Diagnosis (1) Crohns disease Is this a current diagnosis for this admission?: Yes (2) Sciatica Is this a current diagnosis for this admission?: Yes (3) Acute pancreatitis Qualifiers: Pancreatitis type: unspecified pancreatitis type Acute pancreatitis complication: unspecified Qualified Code(s): K85.90 - Acute pancreatitis without necrosis or infection, unspecified Is this a current diagnosis for this admission?: Yes (4) Chronic pain syndrome Is this a current diagnosis for this admission?: Yes (5) Gastroesophageal reflux disease Qualifiers: Esophagitis presence: esophagitis presence not specified Qualified Code(s) : K21.9 - Gastro-esophageal reflux disease without esophagitis Is this a current diagnosis for this admission?: Yes (6) Hypokalemia Is this a current diagnosis for this admission?: Yes (7) Ileostomy present Is this a current diagnosis for this admission?: Yes (8) Common bile duct stricture Is this a current diagnosis for this admission?: Yes (9) Vitamin B12 deficiency Is this a current diagnosis for this admission?: Yes Plan: Daily IM injections - Time Time Spent with patient: We will discharge in a.m. Continue Creon Patient to be followed up by Dr. Lambert in a week to 2 weeks Time Spent with patient: 25-34 minutes
[2017-07-28] MEDS: CYANOCOBALAMIN (VITAMIN B-12) INJ 1000 MCG/1 ML VIAL IM SCH (18:01)
[2017-07-28] MEDS: TRAZODONE HCL 50 MG TABLET PO SCH (21:38)
[2017-07-29] MEDS: POTASSI CL 20 MEQ/D5-1/2NS 1L 1,000 ML IV PRN (01:58)
[2017-07-29] MEDS: DIPHENOXYLATE HCL/ATROP SULF 2.5-0.025 MG TABLET PO SCH ×3 (05:32→13:41)
[2017-07-29] MEDS: LIPASE/PROTEASE/AMYLASE 1 CAP CAPSULE.DR PO SCH ×2 (05:32→13:42)
[2017-07-29] MEDS: OXYCODONE HCL IR 5 MG TABLET PO PRN ×3 (05:32→13:40)
[2017-07-29] MEDS: OXYCODONE HCL IR 5 MG TABLET PO SCH ×2 (05:33→13:41)
[2017-07-29 07:27] LABS: ANION GAP 8 (5-19); BLOOD UREA NITROGEN 11 mg/dL (7-20); CALCIUM 8.5 mg/dL (8.4-10.2); CARBON DIOXIDE 23 mmol/L (22-30); CHLORIDE 109 mmol/L (98-107); GLUCOSE 86 mg/dL (75-110); LIPASE 1211.9 U/L (23-300); POTASSIUM 4.2 mmol/L (3.6-5.0); SODIUM 139.8 mmol/L (137-145)
--- NOTE | 2017-07-29 08:43 | PDOC DISCHARGE SUMMARY ---
General - Admit/Disc Date/PCP Admission Date/Primary Care Provider: 07/21/17 20:[address] Ari Lambert- GI Discharge Date: 07/29/17 - Discharge Diagnosis (1) Acute pancreatitis Is this a current diagnosis for this admission?: Yes (2) Chronic pain syndrome Is this a current diagnosis for this admission?: Yes (3) Gastroesophageal reflux disease Is this a current diagnosis for this admission?: Yes (4) Hypokalemia Is this a current diagnosis for this admission?: Yes (5) Ileostomy present Is this a current diagnosis for this admission?: Yes (6) Depression Is this a current diagnosis for this admission?: Yes (7) COPD (chronic obstructive pulmonary disease) Is this a current diagnosis for this admission?: Yes - Additional Information Resuscitation Status: Full Code Discharge Diet: Other (Comments) - Low fat diet Discharge Activity: Activity As Tolerated Prescriptions: Ondansetron [Zofran Odt 4 mg Tablet] 4 mg PO Q8HP PRN 7 Days #20 tab.rapdis PRN Reason: Cyanocobalamin (Vitamin B-12) [Vitamin B-12 1000 mcg Tablet] 1,000 mcg PO DAILY 30 Days #30 tablet Lipase/Protease/Amylase [Roscoe Carballo 12,000 Units Capsule] 1 each PO ACHS 30 Days # 120 capsule. Oxycodone HCl 10 mg PO TID 7 Days #20 tablet Home Medications: Cyanocobalamin (Vitamin B-12) [Vitamin B-12 Inj 1000 Mcg/1 ml Vial] 1,000 mcg IM [id number] 03/15/17 Dicyclomine HCl [Bentyl 20 mg Tablet] 20 mg PO QID 03/15/17 Diphenoxylate HCl/Atrop Sulf [Lomotil 2.5 mg Tablet] 1 tab PO Q4HWA 03/15/17 Ergocalciferol (Vitamin D2) [Vitamin D2] 50,000 unit PO TH@1000 03/15/17 Omeprazole 40 mg PO DAILY 03/15/17 Potassium Chloride [Kaon-Cl 20 Meq/15 ml Udcup] 20 meq PO BID 03/15/17 Trazodone HCl [Desyrel 50 mg Tablet] 50 mg PO QHS 03/15/17 Cyclobenzaprine HCl [Flexeril 5 mg Tablet] 5 mg PO TID 07/22/17 Gabapentin [Neurontin 300 mg Capsule] 300 mg PO Q12 07/22/17 Mupirocin 22 gm TP ASDIR PRN 07/22/17 Albuterol Sulfate [Proair HFA Inhalation Aerosol 8.5 gm MDI] 2 puff IH Q6HP PRN hfa.aer.ad 07/29/17 Cyanocobalamin (Vitamin B-12) [Vitamin B-12 1000 mcg Tablet] 1,000 mcg PO DAILY 30 Days #30 tablet 07/29/17 Lipase/Protease/Amylase [Roscoe Carballo 12,000 Units Capsule] 1 each PO ACHS 30 Days # 120 capsule. 07/29/17 Mag Hydrox/Al Hydrox/Simeth [Maalox Plus Susp 30 Udcup] 30 ml PO Q6HP PRN udc 07/29/17 Ondansetron [Zofran Odt 4 mg Tablet] 4 mg PO Q8HP PRN 7 Days #20 tab.rapdis Oxycodone HCl 10 mg PO TID 7 Days #20 tablet 07/29/17 Venlafaxine HCl [Effexor 75 mg Tablet] 75 mg PO Q12 tablet 07/29/17 History of Present Illness History of Present Illness: The patient is a 67-year-old female with a history of Crohn's disease status post total colectomy and ileostomy. She has a history of recurrent pancreatitis. This is her third episode in the past 12 months. Past medical history: COPD Crohn's disease Depression Arthritis GERD Pancreatitis Past surgical history: Cholecystectomy Ileostomy Hysterectomy Total colectomy Outpatient medications: Tylenol extra strength every 4 hours as needed Ventolin HFA as needed Vitamin B12 1000 mcg monthly intramuscular Bentyl 20 mg 4 times a day Lomotil 2.5 mg every 4 hours Vitamin D 50,000 units once a week Guaifenesin as needed Creon 12,000 units 3 times a day Maalox every 6 hours as needed Omeprazole 40 mg daily Zofran 4 mg every 8 hours as needed Oxycodone 5 mg 3 times a day Potassium chloride 20 mEq twice a day Senna twice a day Trazodone 25 mg at bedtime Effexor 75 mg twice a day She presented to the hospital on July 21 complaining of a 6 day history of progressively worsening abdominal pain and nausea. She says that her PCP is now Dr. Arizmendi and not Dr. Munroe. CT abdomen done in the emergency room showed pancreatitis, labs revealed elevated Lipase levels. She was kept n.p.o. and treated with IV fluids. Hypokalemia was corrected. She was seen in consultation by . His consult is as follows: She does not drink alcohol. She had a CAT scan on admission that showed peripancreatic inflammation and this was also shown on subsequent MRCP. The MRCP showed no dilated ducts but there was narrowing of the common bile ducts at the level of the duodenum. Her LFTs have been normal. Patient has had multiple episodes of pancreatitis in the past as far back as 2011. She actually had an ERCP in January 2012 that showed mild dilation of the common bile duct. Sphincterotomy was performed at that time. The pancreatic duct was not cannulated. She was admitted in March of this year with a lipase of 20,000 but normal pancreas on 2 CAT scans. She also had a normal CAT scan in June 2016. An EGD was performed while she was in the hospital in April and this was normal. The etiology for her recurrent pancreatitis is unclear on previous ERCP 6 years ago was not conclusive. She has had episodes of elevated lipase in the past without radiologic evidence for pancreatitis. Medication may be a possible reason for her pancreatitis. I will refer her for endoscopic ultrasound after this admission to rule out neoplasm. Hospital Course Hospital Course: Diet was gradually advanced and Lipase levels have gobe down with decreasing abdominal pain. Scripts were given for Oxycodone 10mg Q8hrs -20 tablets. Also for Creon and Zofran She is stable and ready for discharge. Follow up PCP and GI for endoscopic US as outpatient. Physical Exam Vital Signs: Temp Pulse Resp BP Pulse Ox 98.3 F 69 12 120/59 L 100 07/29/17 07:56 07/29/17 07:56 07/29/17 07:56 07/29/17 07:56 07/29/17 07:56 Intake & Output 07/28/17 07/29/17 07/30/17 06:59 06:59 06:59 Intake Total 6102 60 Balance 6127 6022 Weight 57.4 kg 59.1 kg General appearance: PRESENT: no acute distress, thin Respiratory exam: PRESENT: symmetrical, unlabored Results Laboratory Results: 07/27/17 12:15 07/29/17 07:02 07/29/17 07:02 Sodium 139.8 Potassium 4.2 Chloride 109 H Carbon Dioxide 23 Anion Gap 8 BUN 11 Creatinine 0.86 Est GFR ( Amer) > 60 Est GFR (Non-Af Amer) > 60 Glucose 86 Calcium 8.5 Lipase 1211.9 H 07/22/17 10:56 NT-Pro-B Natriuret Pep 273 Impressions: Abdomen/Pelvis CT 07/21/17 00:00 IMPRESSION: Acute pancreatitis. No pancreatic pseudocyst is appreciated at this time. There is considerable peripancreatic and mesenteric edema. There is the appearance of an ileus involving the proximal small bowel. Abdomen MRI 07/22/17 00:00 IMPRESSION: No evidence for common duct stone and no dilatation of the common duct. There is abrupt tapered narrowing of the duct just at the duodenum. Question stricture. No evidence for mass. Secondary changes related to pancreatitis including fluid around the pancreas, liver, mesenteric, and along the flanks. 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 No dilated small bowel loops worrisome for small bowel obstruction. Stomach mildly distended which could be seen related to pancreatitis Qualifiers - * PATIENT BEING DISCHARGED WITH ANY OF THE FOLLOWING DIAGNOSIS: No Plan Time Spent: Greater than 30 Minutes
[2017-07-29] MEDS: GABAPENTIN 300 MG CAPSULE PO SCH (09:20)
[2017-07-29] MEDS: DICYCLOMINE HCL 20 MG TABLET PO SCH ×2 (09:20→13:42)
[2017-07-29] MEDS: VENLAFAXINE HCL 75 MG TABLET PO SCH (09:20)
[2017-07-29] MEDS ORDERED: CYANOCOBALAMIN (VITAMIN B-12) 1,000 MCG TABLET PO SCH (10:00)
[2017-07-29] MEDS: PREDNISONE 20 MG TABLET PO SCH (12:38)
[2017-07-29 14:20] VITALS: BP 148/67
== END 2017-07-29 14:39 | DRG 438 ==
LOC: ER 15:02 → EH 20:18 → 3W 22:50
PROVIDERS: ADMIT Internal Medicine; ATTEND Internal Medicine
DX: K85.90 Acute pancreatitis without necrosis or infection, unspecified (principal); K83.1 Obstruction of bile duct; K56.7 Ileus, unspecified; K50.90 Crohn's disease, unspecified, without complications; E87.6 Hypokalemia; J44.9 Chronic obstructive pulmonary disease, unspecified; K21.9 Gastro-esophageal reflux disease without esophagitis; E53.8 Deficiency of other specified B group vitamins; G89.4 Chronic pain syndrome; M54.31 Sciatica, right side; Z93.2 Ileostomy status; Z90.49 Acquired absence of other specified parts of digestive tract
CPT/HCPCS: 36415; 74018; 74177; 74181; 80048; 80053; 80076; 81001; 82607; 82728; 82746; 83540; 83550; 83690; 83735; 83880; 84100; 85025; 87086; 96361; 96374; 96375; 96376; 99285; J1170; J1642; J2405; J3010; J3420; J3475; J3480; J3490; J7030; J7060; J7512; S0119; S0164

== ENCOUNTER 2018-04-25 05:40 | Emergency (ER) | payer MEDICARE, MEDICAID ==
[2018-04-25] MEDS ORDERED: NORMAL SALINE 1000 ML 1,000 ML IV PRN (07:10)
[2018-04-25] MEDS ORDERED: PROMETHAZINE HCL INJ 25 MG/1 ML VIAL IM ONE (07:18)
[2018-04-25] MEDS ORDERED: NORMAL SALINE 1000 ML 1,000 ML IV ONE (07:25)
--- NOTE | 2018-04-25 07:30 | ER Document Report ---
HPI - HPI Time Seen by Provider: 04/25/18 07:09 Pain Level: 5 Notes: Patient is a 67-year-old female with a history of chronic opioid use, Crohn's disease, colectomy who presents to the emergency department planing of having 3 episodes of nausea and vomiting yesterday and not being able to sleep because of increased pain since being off of her oxycodone for 1 week. Patient states that she is on gabapentin currently for her pain, but believes that she needs a highe r dose now that she is not taking her oxycodone and has not been able to sleep over the last several days. Patient states that she is currently on 300 mg twice daily. Patient states that she has not been eating in the last day as well. She has been feeling bad. No other concerns or complaints. Denies any headache, fever, neck pain, changes in vision/speech/mentation/hearing, URI, sore throat, chest pain, palpitations, syncope, cough, shortness of breath, wheeze, dyspnea, abdominal pain, urinary retention, dysuria, hematuria, loss of control of bowel or bladder, numbness/tingling, saddle anesthesia, muscle paralysis/weakness, or rash. - ROS Systems Reviewed and Negative: Yes All other systems reviewed and negative - REPRODUCTIVE Reproductive: DENIES: : - DERM Skin Color: Normal Past Medical History - Social History Smoking Status: Current Every Day Smoker Chew tobacco use (# tins/day): No Frequency of alcohol use: None Drug Abuse: None Family History: Reviewed & Not Pertinent Patient has suicidal ideation: No Patient has homicidal ideation: No Pulmonary Medical History: Reports: Hx COPD Neurological Medical History: Denies: Hx Seizures Renal/ Medical History: Denies: Hx Peritoneal Dialysis GI Medical History: Reports: Hx Crohn's Disease, Hx Gastroesophageal Reflux Disease, Hx Colonoscopy, Hx Endoscopy Musculoskeletal Medical History: Reports Hx Arthritis, Reports Hx Musculoskeletal Deformity Skin Medical History: Reports Hx MRSA Psychiatric Medical History: Reports: Hx Depression Past Surgical History: Reports: Hx Abdominal Surgery - ileostomy, Hx Cholecystectomy, Hx Colostomy, Hx Hysterectomy, Hx Orthopedic Surgery - feet, Hx Rectal Surgery - removed, Other - Total colectomy - Immunizations Hx Diphtheria, Pertussis, Tetanus Vaccination: No Hx Pneumococcal Vaccination: 12/23/15 Vertical Provider Document - CONSTITUTIONAL Agree With Documented VS: Yes Notes: PHYSICAL EXAMINATION: GENERAL: Well-appearing, well-nourished and in no acute distress. A&Ox4. Answers questions appropriately HEAD: Atraumatic, normocephalic. EYES: Pupils equal round and reactive to light, extraocular movements intact, sclera anicteric, conjunctiva are normal. ENT: Nares patent and without discharge. oropharynx clear without exudates. No tonsilar hypertrophy or erythema. Moist mucous membranes. No sinus tenderness. NECK: Normal range of motion, supple without lymphadenopathy LUNGS: Breath sounds clear to auscultation bilaterally and equal. No wheezes rales or rhonchi. HEART: Regular rate and rhythm without murmurs, rubs, gallops. ABDOMEN: Soft, nontender, nondistended abdomen. No guarding, no rebound. No masses appreciated. Normal bowel sounds present. No CVA tenderness bilaterally. Colectomy bag noted and not leaking. Musculoskeletal: FROM to passive/active. Strength 5+/5. Extremities: No cyanosis, clubbing, or edema b/l. Peripheral pulses 2+. Ca pillary refill less than 3 seconds. NEUROLOGICAL: Cranial nerves grossly intact. Normal speech, normal gait. Normal sensory, motor exams PSYCH: Normal mood, normal affect. SKIN: Warm, Dry, normal turgor, no rashes or lesions noted. - INFECTION CONTROL TRAVEL OUTSIDE OF THE [place] IN LAST 30 DAYS: No Course - Re-evaluation Re-evalutation: 04/25/18 07:30 Pt does not appear to be in any acute withdrawal at this time. She appears rather well and vitals are without tachycardia, tachypnea, hypoxia, hypotension. 04/25/18 09:29 Patient is an afebrile, well-hydrated, 67-year-old female who presents emergency department with nausea and vomiting in the setting of chronic pain. Vitals are acceptable without significant tachycardia, tachypnea, or hypoxia. PE is otherwise unremarkable. Patient's abdomen is soft and nontender. Her lungs are clear to auscultation bilaterally. Patient is rather well appearing aside from irritability. Patient was given 1 dose of gabapentin and Tylenol as well as 1L fluid and phenergan. She has not had any episodes of n/v throughout her stay. She does not appear to be in acute withdrawal and has not taken any narcotic medicine in 7 days. Lab work was unremarkable. No further labs or imaging warranted at this time. Low suspicion for any sepsis, meningitis, severe dehydration, respiratory compromise, acute withdrawal, acute abdomen, or other systemic emergent condition at this time. Patient is aware that condition can change from initial presentation and she needs to monitor symptoms closely and seek medical attention with any acute changes. Recheck with your PCM in 2-3 days. Return to the ED with any other worsening/concerning symptoms as reviewed. Reviewed case with Dr. Carter who is in agreement with dispo/plan. - Vital Signs Vital signs: Temp Pulse Resp BP Pulse Ox 99.1 F 81 18 156/86 H 96 04/25/18 05:40 04/25/18 05:40 04/25/18 05:40 04/25/18 05:40 04/25/18 05:40 - Laboratory Result Diagrams: 04/25/18 08:14 04/25/18 08:14 Discharge - Discharge Clinical Impression: Nausea and vomiting Qualifiers: Vomiting type: unspecified Vomiting Intractability: non-intractable Qualified Code(s): R11.2 - Nausea with vomiting, unspecified Condition: Stable Disposition: HOME, SELF-CARE Instructions: Antinausea Medication ([facility]) Additional Instructions: Maintain adequate fluid and food intake Charles diet ([employer] Bananas, rice, apples, toast, etc Zofran as needed tylenol if needed Monitor for any worsening symptoms Make sure you are staying hydrated enough to urinate and have normal BM's Recheck with your PCM in 2-3 days Consider consult with Gastroenterology for ongoing/worsening symptoms Return to the ED with any worsening symptoms and/or development of fever, headache, chest pain, palpitations, syncope, shortness of breath, trouble breathing, abdominal pain, n/v/d, blood in stool/urine, weakness, or other worsening symptoms that are concerning to you. Prescriptions: Metoclopramide HCl [Reglan] 10 mg PO BID PRN #6 tablet PRN Reason: Forms: Elevated Blood Pressure Referrals: KIRA DANIEL PA [Primary Care Provider] - Follow up as needed
[2018-04-25] MEDS ORDERED: ACETAMINOPHEN 325 MG TABLET PO ONE (08:20)
[2018-04-25] MEDS ORDERED: GABAPENTIN 300 MG CAPSULE PO ONE (08:20)
[2018-04-25 08:27] LABS: ABSOLUTE LYMPHOCYTES (AUTO) 1.3 10^3/uL (0.5-4.7); ABSOLUTE MONOCYTES (AUTO) 0.4 10^3/uL (0.1-1.4); ABSOLUTE NEUT (AUTO) 3.8 10^3/uL (1.7-8.2); BASOPHILS % (AUTO) 0.3 % (0-2); EOSINOPHILS % (AUTO) 0.5 % (0-6); HEMATOCRIT 32.2 % (36.0-47.0); HEMOGLOBIN 10.9 g/dL (12.0-15.5); LYMPHOCYTES % (AUTO) 23.6 % (13-45); MEAN CORPUSCULAR HEMOGLOBIN 29.5 pg (27.0-33.4); MEAN CORPUSCULAR HGB CONC 33.7 g/dL (32.0-36.0); MEAN CORPUSCULAR VOLUME 88 fl (80-97); MONOCYTES % (AUTO) 7.1 % (3-13); PLATELET COUNT 206 10^3/uL (150-450); RED BLOOD COUNT 3.68 10^6/uL (3.72-5.28); RED CELL DISTRIBUTION WIDTH 14.7 % (11.5-14.0); SEGMENTED NEUTROPHILS % (AUTO) 68.5 % (42-78); TOTAL CELLS COUNTED % (AUTO) 100 %; WHITE BLOOD COUNT 5.6 10^3/uL (4.0-10.5)
[2018-04-25 08:40] LABS: APPEARANCE,URINE CLEAR; BILIRUBIN,URINE NEGATIVE (NEGATIVE); COLOR,URINE YELLOW; GLUCOSE, URINE NEGATIVE (NEGATIVE); KETONES,URINE NEGATIVE (NEGATIVE); LEUKOCYTE ESTERASE,URINE MODERATE (NEGATIVE); NITRITE,URINE NEGATIVE (NEGATIVE); PROTEIN,URINE NEGATIVE (NEGATIVE); URINE SPECIFIC GRAVITY 1.019; UROBILINOGEN,URINE NEGATIVE mg/dL (<2.0)
[2018-04-25 08:46] LABS: ALANINE AMINOTRANSFERASE 27 U/L (9-52); ALBUMIN 4.3 g/dL (3.5-5.0); ALKALINE PHOSPHATASE 139 U/L (38-126); ANION GAP 10 (5-19); ASPARTATE AMINO TRANSFERASE 35 U/L (14-36); BILIRUBIN,DIRECT 0.2 mg/dL (0.0-0.4); BILIRUBIN,TOTAL 0.5 mg/dL (0.2-1.3); BLOOD UREA NITROGEN 12 mg/dL (7-20); CALCIUM 9.2 mg/dL (8.4-10.2); CARBON DIOXIDE 24 mmol/L (22-30); CHLORIDE 103 mmol/L (98-107); GLUCOSE 98 mg/dL (75-110); POTASSIUM 3.3 mmol/L (3.6-5.0); SODIUM 137.3 mmol/L (137-145); TOTAL PROTEIN 6.9 g/dL (6.3-8.2)
[2018-04-25 08:50] LABS: URINE AMPHETAMINES SCREEN NEGATIVE; URINE BARBITURATES SCREEN NEGATIVE; URINE BENZODIAZEPINES SCREEN NEGATIVE; URINE COCAINE SCREEN NEGATIVE; URINE MARIJUANA (THC) SCREEN NEGATIVE; URINE METHADONE SCREEN NEGATIVE; URINE PHENCYCLIDINE SCREEN NEGATIVE
[2018-04-25] MEDS ORDERED: KETOROLAC TROMETHAMINE INJ/PF 30 MG/1 ML SDV IV ONE (09:41)
[2018-04-25 10:23] VITALS: BP 150/95
== END 2018-04-25 10:26 | disposition home or self-care (01) ==
LOC: ER 05:40
DX: R11.2 Nausea with vomiting, unspecified (principal); Z79.899 Other long term (current) drug therapy; F17.200 Nicotine dependence, unspecified, uncomplicated; J44.9 Chronic obstructive pulmonary disease, unspecified
CPT/HCPCS: 36591; 99284; 96372; 96361; 96374; 36415; 87086; 83690; 85025; 80053; 81001; 80307; A9270 ×2; J1885; J2550; J7030

== ENCOUNTER 2018-05-24 00:15 | Emergency (ER) | payer MEDICARE, MEDICAID ==
[2018-05-24 04:06] LABS: APPEARANCE,URINE CLOUDY; BILIRUBIN,URINE NEGATIVE (NEGATIVE); COLOR,URINE YELLOW; GLUCOSE, URINE NEGATIVE (NEGATIVE); KETONES,URINE 20 mg/dL (NEGATIVE); LEUKOCYTE ESTERASE,URINE LARGE (NEGATIVE); NITRITE,URINE NEGATIVE (NEGATIVE); PROTEIN,URINE 100 mg/dL (NEGATIVE); URINE SPECIFIC GRAVITY 1.041; UROBILINOGEN,URINE NEGATIVE mg/dL (<2.0)
[2018-05-24 07:00] LABS: ABSOLUTE EOSINOPHILS # (AUTO) 0.1 10^3/uL (0.0-0.6); ABSOLUTE LYMPHOCYTES (AUTO) 1.6 10^3/uL (0.5-4.7); ABSOLUTE MONOCYTES (AUTO) 0.5 10^3/uL (0.1-1.4); ABSOLUTE NEUT (AUTO) 5.4 10^3/uL (1.7-8.2); BASOPHILS % (AUTO) 0.3 % (0-2); EOSINOPHILS % (AUTO) 0.8 % (0-6); HEMATOCRIT 33.2 % (36.0-47.0); HEMOGLOBIN 11.2 g/dL (12.0-15.5); LYMPHOCYTES % (AUTO) 20.7 % (13-45); MEAN CORPUSCULAR HEMOGLOBIN 30.6 pg (27.0-33.4); MEAN CORPUSCULAR HGB CONC 33.8 g/dL (32.0-36.0); MEAN CORPUSCULAR VOLUME 91 fl (80-97); MONOCYTES % (AUTO) 6.2 % (3-13); PLATELET COUNT 243 10^3/uL (150-450); RED BLOOD COUNT 3.67 10^6/uL (3.72-5.28); RED CELL DISTRIBUTION WIDTH 19.7 % (11.5-14.0); TOTAL CELLS COUNTED % (AUTO) 100 %; WHITE BLOOD COUNT 7.5 10^3/uL (4.0-10.5)
[2018-05-24 07:18] LABS: ALANINE AMINOTRANSFERASE 31 U/L (9-52); ALBUMIN 4.2 g/dL (3.5-5.0); ALKALINE PHOSPHATASE 112 U/L (38-126); ANION GAP 11 (5-19); ASPARTATE AMINO TRANSFERASE 22 U/L (14-36); BILIRUBIN,DIRECT 0.2 mg/dL (0.0-0.4); BILIRUBIN,TOTAL 0.5 mg/dL (0.2-1.3); BLOOD UREA NITROGEN 24 mg/dL (7-20); CALCIUM 9.5 mg/dL (8.4-10.2); CARBON DIOXIDE 20 mmol/L (22-30); CHLORIDE 107 mmol/L (98-107); GLUCOSE 91 mg/dL (75-110); LIPASE 158.4 U/L (23-300); POTASSIUM 3.5 mmol/L (3.6-5.0); SODIUM 137.5 mmol/L (137-145); TOTAL PROTEIN 6.8 g/dL (6.3-8.2)
[2018-05-24] MEDS ORDERED: ONDANSETRON HCL INJ/PF 4 MG/2 ML SDV IV ONE (07:20)
[2018-05-24] MEDS ORDERED: NORMAL SALINE 500 ML IV ONE (07:21)
--- NOTE | 2018-05-24 08:46 | RADIOLOGY REPORT (SQ) ---
EXAM DESCRIPTION: CT ABD/PELVIS WITH IV ONLY COMPLETED DATE/TIME: 05/24/2018 8:25 am REASON FOR STUDY: n v blood in ileost COMPARISON: 04/13/2017 TECHNIQUE: CT scan of the abdomen and pelvis performed using helical scanning technique with dynamic intravenous contrast injection. No oral contrast. Images reviewed with lung, soft tissue, and bone windows. Reconstructed coronal and sagittal MPR images reviewed. Delayed images for evaluation of the urinary system also acquired. All images stored on PACS. All CT scanners at this facility use dose modulation, iterative reconstruction, and/or weight based d osing when appropriate to reduce radiation dose to as low as reasonably achievable (ALARA). [facility]: Dose Right [facility]: CareDose [facility]: Dose Right [facility]: Teradose 4D [facility]: DocLanding CONTRAST TYPE AND DOSE: contrast/concentration: Isovue 350.00 mg/ml; Total Contrast Delivered: 62.0 ml; Total Saline Delivered: 65.0 ml RENAL FUNCTION: GFR > 60. RADIATION DOSE: CT Rad equipment meets quality standard of care and radiation dose reduction techniq ues were employed. CTDIvol: 5.2 - 6.6 mGy. DLP: 542 mGy-cm.. LIMITATIONS: None. FINDINGS: LOWER CHEST: No significant findings. No nodules or infiltrates. LIVER: Normal size. No masses. No dilated ducts. SPLEEN: Normal size. No focal lesions. PANCREAS: No masses. No significant calcifications. No adjacent inflammation or peripancreatic fluid collections. Pancreatic duct not dilated. GALLBLADDER: Surgically absent. ADRENAL GLANDS: No significant masses or asymmetry. RIGHT KIDNEY AND URETER: No solid masses. No significant calcifications. No hydronephrosis or hyd roureter. LEFT KIDNEY AND URETER: No solid masses. No significant calcifications. No hydronephrosis or hydr oureter. AORTA AND VESSELS: No aneurysm. No dissection. Renal arteries, SMA, celiac without stenosis. RETROPERITONEUM: No retroperitoneal adenopathy, hemorrhage or masses. BOWEL AND PERITONEAL CAVITY: There has been colectomy and partial bowel resection, anatomy not well e lucidated on this examination, with a left lower quadrant ostomy. There is a focal loop of distended bowel in the left hemiabdomen about an anastomosis without evidence of proximal obstruction. APPENDIX: Normal. PELVIS: No mass. No free fluid. Normal bladder. Status posthysterectomy. ABDOMINAL WALL: No masses. No hernias. BONES: No significant or acute findings. OTHER: No other significant finding. IMPRESSION: There has been colectomy and partial bowel resection, anatomy not well elucidated on thi s examination, with a left lower quadrant ostomy. There is a focal loop of distended bowel in the le ft hemiabdomen about an anastomosis without evidence of proximal obstruction. TECHNICAL DOCUMENTATION: JOB ID: [id number] Quality ID # [id number]: Final reports with documentation of one or more dose reduction techniques (e.g., Au tomated exposure control, adjustment of the mA and/or kV according to patient size, use of iterative reconstruction technique) 2010 [employer]- All Rights Reserved Reading location - IP/workstation name: [email or web address]
[2018-05-24] MEDS ORDERED: CEFTRIAXONE 1 GM/D5W RTU 1 GM/50 ML RTUPB IV ONE (09:00)
[2018-05-24] MEDS ORDERED: DIPHENOXYLATE HCL/ATROP SULF 2.5-0.025 MG TABLET PO ONE (09:37)
--- NOTE | 2018-05-24 11:04 | ER Document Report ---
ED General - General Chief Complaint: Nausea Stated Complaint: NAUSEA Time Seen by Provider: 05/24/18 06:12 Primary Care Provider: ISAI LEONARD FNP-C [Primary Care Provider] - Follow up as needed TRAVEL OUTSIDE OF THE [place] IN LAST 30 DAYS: No - HPI Patient complains to provider of: Nausea abdominal pain blood through ileostomy Notes: Patient coming in for evaluation of blood coming out of her ileostomy abdominal pain and nausea. Patient states slight vomiting. Patient states feeling unwell day prior to arrival. Patient states had blood coming out of her ileostomy patient states this is happened before requiring her to have blood transfusions. Has ileostomy due to significant Crohn's disease. Patient states he had total colectomy. Patient otherwise denies any fevers denies any recent antibiotics. Patient is resting healthily upon my evaluation patient states generalized abdominal pain. - Related Data Allergies/Adverse Reactions: codeine Allergy (Verified 03/15/17 15:38) naproxen Allergy (Verified 03/15/17 15:38) pregabalin [From Lyrica] Allergy (Verified 03/15/17 15:38) Past Medical History - Social History Smoking Status: Never Smoker Family History: Reviewed & Not Pertinent Patient has suicidal ideation: No Patient has homicidal ideation: No Pulmonary Medical History: Reports: Hx COPD Neurological Medical History: Denies: Hx Seizures Renal/ Medical History: Denies: Hx Peritoneal Dialysis GI Medical History: Reports: Hx Crohn's Disease, Hx Gastroesophageal Reflux Disease, Hx Colonoscopy, Hx Endoscopy Musculoskeletal Medical History: Reports Hx Arthritis, Reports Hx Musculoskeletal Deformity Skin Medical History: Reports Hx MRSA Psychiatric Medical History: Reports: Hx Depression Past Surgical History: Reports: Hx Abdominal Surgery - ileostomy, Hx Cholecystectomy, Hx Colostomy, Hx Hysterectomy, Hx Orthopedic Surgery - feet, Hx Rectal Surgery - removed, Other - Total colectomy - Immunizations Hx Diphtheria, Pertussis, Tetanus Vaccination: No Hx Pneumococcal Vaccination: 12/23/15 Review of Systems - Review of Systems Constitutional: No symptoms reported EENT: No symptoms reported Cardiovascular: No symptoms reported Respiratory: No symptoms reported Gastrointestinal: Abdominal pain, Nausea, Vomiting Genitourinary: No symptoms reported Female Genitourinary: No symptoms reported Musculoskeletal: No symptoms reported Skin: No symptoms reported Hematologic/Lymphatic: No symptoms reported Neurological/Psychological: No symptoms reported -: Yes All other systems reviewed and negative Physical Exam - Vital signs Vitals: Temp Pulse Resp BP Pulse Ox 98.2 F 78 16 144/87 H 99 05/24/18 00:35 05/24/18 00:35 05/24/18 00:35 05/24/18 00:35 05/24/18 00:35 Interpretation: Normal - General General appearance: Appears well, Alert - HEENT Head: Normocephalic, Atraumatic Eyes: Normal Pupils: PERRL - Respiratory Respiratory status: No respiratory distress Chest status: Nontender Breath sounds: Normal Chest palpation: Normal - Cardiovascular Rhythm: Regular Heart sounds: Normal auscultation Murmur: No - Abdominal Inspection: Normal, Other - Ileostomy Distension: No distension Bowel sounds: Normal Tenderness: Nontender Organomegaly: No organomegaly - Back Back: Normal, Nontender - Extremities General upper extremity: Normal inspection, Nontender, Normal color, Normal ROM, Normal temperature General lower extremity: Normal inspection, Nontender, Normal color, Normal ROM, Normal temperature, Normal weight bearing. No: Faizan's sign - Neurological Neuro grossly intact: Yes Cognition: Normal Orientation: AAOx4 [place] Coma Scale Eye Opening: Spontaneous Kiran Coma Scale Verbal: Oriented Kiran Coma Scale Motor: Obeys Commands [place] Coma Scale Total: 15 Speech: Normal Motor strength normal: LUE, RUE, LLE, RLE Sensory: Normal - Psychological Associated symptoms: Normal affect, Normal mood - Skin Skin Temperature: Warm Skin Moisture: Dry Skin Color: Normal Course - Re-evaluation Re-evalutation: 05/24/18 11:57 Laboratory studies not show any critical pathology at this time set for urinary tract infection. Patient symptoms improved with Zofran. Will send patient home with antibiotics and antiemetics. Patient requested a dose of Lomotil states t hat she has been out of her Lomotil which she takes to help with increase your ostomy output. Patient is also requesting that we refill her home medications as that she missed her primary care appointment today at 10:00. The explained to the patient that we would recommend following up with primary care for med management. Patient case was discussed with Dr. Lambert her GI states that he will follow-up with her as outpatient. - Vital Signs Vital signs: Temp Pulse Resp BP Pulse Ox 98.6 F 73 18 158/69 H 99 05/24/18 08:32 05/24/18 08:32 05/24/18 08:32 05/24/18 11:15 05/24/18 08:32 - Laboratory Result Diagrams: 05/24/18 06:40 05/24/18 06:40 Laboratory results interpreted by me: 05/24/18 05/24/18 05/24/18 03:46 06:40 06:40 RBC 3.67 L Hgb 11.2 L Hct 33.2 L RDW 19.7 H Potassium 3.5 L Carbon Dioxide 20 L BUN 24 H Est GFR (Non-Af Amer) 49 L Urine Protein 100 H Urine Ketones 20 H Ur Leukocyte Esterase LARGE H Discharge - Discharge Clinical Impression: Ileostomy present, Nausea Abdominal pain Qualifiers: Abdominal location: generalized Qualified Code(s): R10.84 - Generalized abdominal pain UTI (urinary tract infection) Qualifiers: Urinary tract infection type: site unspecified Hematuria presence: without hematuria Qualified Code(s): N39.0 - Urinary tract infection, site not specified Condition: Good Disposition: HOME, SELF-CARE Instructions: Abdominal Pain ([facility]), Urinary Tract Infection ([facility]) Additional Instructions: Your CT scan does not show any acute abnormality at this time. Your urinalysis does show signs of a urinary tract infection. I will highly recommend she follow-up with your primary care physician please return to the ER symptoms worsen. Please take your antibiotics as prescribed. Prescriptions: Cephalexin Monohydrate [Keflex 500 mg Capsule] 500 mg PO Q6H 10 Days capsule Ondansetron [Zofran Odt 4 mg Tablet] 1 - 2 tab PO Q4H PRN #30 tab.rapdis PRN Reason: For Nausea/Vomiting Referrals: ISAI LEONARD, [facility]-C [Primary Care Provider] - Follow up as needed
[2018-05-24 11:15] VITALS: BP 158/69
== END 2018-05-24 11:15 | disposition home or self-care (01) ==
LOC: ER 00:15
DX: N39.0 Urinary tract infection, site not specified (principal); R10.84 Generalized abdominal pain; R11.0 Nausea; Z93.2 Ileostomy status; Z88.6 Allergy status to analgesic agent; Z90.49 Acquired absence of other specified parts of digestive tract; Z90.710 Acquired absence of both cervix and uterus
CPT/HCPCS: 36591; 99284; 96361; 96375; 96365; 36415; 87086; 83690; 85025; 80053; 81001; 83605; 74177; A9270; J2405; J7040; J0696; J3490

== ENCOUNTER 2018-10-23 09:05 | Observation (INO) | payer MEDICARE, MEDICAID ==
[2018-10-23] MEDS ORDERED: NORMAL SALINE 1000 ML 1,000 ML IV ONE (09:27)
[2018-10-23 10:23] LABS: ABSOLUTE LYMPHOCYTES (AUTO) 0.9 10^3/uL (0.5-4.7); ABSOLUTE MONOCYTES (AUTO) 0.3 10^3/uL (0.1-1.4); ABSOLUTE NEUT (AUTO) 5.7 10^3/uL (1.7-8.2); BASOPHILS % (AUTO) 0.3 % (0-2); EOSINOPHILS % (AUTO) 0.3 % (0-6); HEMOGLOBIN 11.8 g/dL (12.0-15.5); LYMPHOCYTES % (AUTO) 13.2 % (13-45); MEAN CORPUSCULAR HEMOGLOBIN 31.6 pg (27.0-33.4); MEAN CORPUSCULAR HGB CONC 33.7 g/dL (32.0-36.0); MEAN CORPUSCULAR VOLUME 94 fl (80-97); MONOCYTES % (AUTO) 4.3 % (3-13); PLATELET COUNT 212 10^3/uL (150-450); RED BLOOD COUNT 3.72 10^6/uL (3.72-5.28); RED CELL DISTRIBUTION WIDTH 14.6 % (11.5-14.0); SEGMENTED NEUTROPHILS % (AUTO) 81.9 % (42-78); TOTAL CELLS COUNTED % (AUTO) 100 %
[2018-10-23 10:26] LABS: INTERNATIONAL RATION (INR) 0.98
--- NOTE | 2018-10-23 10:33 | RADIOLOGY REPORT (SQ) ---
EXAM DESCRIPTION: CHEST SINGLE VIEW COMPLETED DATE/TIME: 10/23/2018 10:22 am REASON FOR STUDY: weak COMPARISON: None. EXAM PARAMETERS: NUMBER OF VIEWS: One view. TECHNIQUE: Single frontal radiographic view of the chest acquired. RADIATION DOSE: NA LIMITATIONS: None. FINDINGS: LUNGS AND PLEURA: Emphysematous change with hyperinflation, stable. No focal airspace dis ease, pleural effusion or pneumothorax. MEDIASTINUM AND HILAR STRUCTURES: No masses. Contour normal. HEART AND VASCULAR STRUCTURES: Heart normal in size. Normal vasculature. BONES: No acute findings. HARDWARE: Right internal jugular central venous catheter with tip at cavoatrial junction. OTHER: No other significant finding. IMPRESSION: Emphysematous change without evidence of acute cardiopulmonary process. TECHNICAL DOCUMENTATION: JOB ID: [id number] [employer]- All Rights Reserved Reading location - IP/workstation name: [email or web address]
[2018-10-23 10:41] LABS: APPEARANCE,URINE SLIGHTLY-CLOUDY; BILIRUBIN,URINE NEGATIVE (NEGATIVE); COLOR,URINE YELLOW; GLUCOSE, URINE NEGATIVE (NEGATIVE); KETONES,URINE TRACE mg/dL (NEGATIVE); LEUKOCYTE ESTERASE,URINE MODERATE (NEGATIVE); NITRITE,URINE NEGATIVE (NEGATIVE); PROTEIN,URINE NEGATIVE (NEGATIVE); URINE SPECIFIC GRAVITY 1.005; UROBILINOGEN,URINE NEGATIVE mg/dL (<2.0)
[2018-10-23 10:43] LABS: ALBUMIN 4.1 g/dL (3.5-5.0); ALKALINE PHOSPHATASE 110 U/L (38-126); ANION GAP 13 (5-19); ASPARTATE AMINO TRANSFERASE 26 U/L (14-36); BILIRUBIN,DIRECT 0.2 mg/dL (0.0-0.4); BILIRUBIN,TOTAL 0.5 mg/dL (0.2-1.3); BLOOD UREA NITROGEN 24 mg/dL (7-20); CALCIUM 9.5 mg/dL (8.4-10.2); CARBON DIOXIDE 22 mmol/L (22-30); CHLORIDE 101 mmol/L (98-107); CREATINE KINASE 49 U/L (30-135); GLUCOSE 77 mg/dL (75-110); POTASSIUM 3.9 mmol/L (3.6-5.0); TOTAL PROTEIN 6.6 g/dL (6.3-8.2)
--- NOTE | 2018-10-23 12:47 | ER Document Report ---
ED Substance Abuse / Acc. OD - General Chief Complaint: General Weakness Stated Complaint: WEAKNESS Time Seen by Provider: 10/23/18 09:21 Notes: 68-year-old female presents to the ER with mild confusion. The patient had 120 Lomotil filled several days ago and only has the left. They recommend the patient's been taking 30 to 40 pills a day for the last several days. She denies any pain or complaints she is somnolent but answers questions. Denies chest pain denies shortness of breath states he feels very weak and tired. The patient denies any suicidal homicidal thoughts denies visual auditory hallucinations. TRAVEL OUTSIDE OF THE [place] IN LAST 30 DAYS: No - Related Data Allergies/Adverse Reactions: codeine Allergy (Verified 10/23/18 09:50) naproxen Allergy (Verified 10/23/18 09:50) pregabalin [From Lyrica] Allergy (Verified 10/23/18 09:50) Past Medical History - Social History Smoking Status: Never Smoker Chew tobacco use (# tins/day): No Frequency of alcohol use: None Drug Abuse: None Family History: Reviewed & Not Pertinent Patient has suicidal ideation: No Patient has homicidal ideation: No Pulmonary Medical History: Reports: Hx COPD Neurological Medical History: Denies: Hx Seizures Renal/ Medical History: Denies: Hx Peritoneal Dialysis GI Medical History: Reports: Hx Crohn's Disease, Hx Gastroesophageal Reflux Disease, Hx Colonoscopy, Hx Endoscopy Musculoskeletal Medical History: Reports Hx Arthritis, Reports Hx Musculoskeletal Deformity Skin Medical History: Reports Hx MRSA Psychiatric Medical History: Reports: Hx Depression Past Surgical History: Reports: Hx Abdominal Surgery - ileostomy, Hx Cholecystectomy, Hx Colostomy, Hx Hysterectomy, Hx Orthopedic Surgery - feet, Hx Rectal Surgery - removed, Other - Total colectomy - Immunizations Hx Diphtheria, Pertussis, Tetanus Vaccination: No Hx Pneumococcal Vaccination: 12/23/15 Review of Systems - Review of Systems Constitutional: denies: Chills, Fever EENT: No symptoms reported Cardiovascular: No symptoms reported Respiratory: No symptoms reported Gastrointestinal: No symptoms reported Female Genitourinary: No symptoms reported Musculoskeletal: No symptoms reported Neurological/Psychological: Confusion, Weakness. denies: Anxiety, Headaches, Suicidal ideation -: Yes All other systems reviewed and negative Physical Exam - Vital signs Vitals: Pulse Ox 100 10/23/18 09:54 - Notes Notes: GENERAL_APPEARANCE: well_nourished, somnolent, cooperative. VITALS: reviewed, see vital signs table. HEAD: no_swelling\tenderness on the head. EYES: PERRL, EOMI, conjunctiva_clear. NOSE: no_nasal_discharge. MOUTH: Mouth and tongue THROAT: no_tonsilar_inflammation, no_airway_obstruction. no_lymphadenopathy NECK: supple, no_neck_tenderness, (-)thyromegaly. BACK: no_back_tenderness. CHEST_WALL: no_chest_tenderness. LUNGS: Cannot wheezing, no_rales, no_rhonchi, (-)accessory muscle use, good air exchange bilateral. HEART: normal_rate, normal_rhythm, normal_S1, normal_S2, (-)S3, (-)S4, no_murmur, no_rub. ABDOMEN: normal_BS, soft, no_abd_tenderness, (-)guarding, (-)rebound, no_organomegaly, no_abd_masses. EXTREMITIES: strength 5/5 in all_extremities, good pulses in all_extremities, no_swelling\tenderness in the extremities, no_edema. SKIN: warm, dry, good_color, no_rash. MENTAL_STATUS: speech_clear, oriented_X_3, somnolent_affect, responds_appropriately to questions. NEURO: Neg Motor or Sensory Deficits on exam, CN 2-12 intact, DTR 2+ symmetric x 4, No cerbellar signs\ PSYCH: Denies suicidal homicidal ideation denies visual auditory hallucinations Course - Re-evaluation Re-evalutation: 10/23/18 13:21 68-year-old female who presents to the ER with altered mental status and inadvertent overdose of Lomotil. Poison control stated the patient should be observed for 24 hours. Head scan is pending however the patient has no neuro deficits other than somnolence. Laboratory work-up is very reassuring. If the patient becomes more somnolent than expected she should receive Narcan but otherwise she has been doing well here has not required any oxygen or stimulation to give respirations. Speak with the hospitalist service for observation. 10/23/18 13:23 The patient has been taking an excessive number of Lomotil. I guess she has had some loose stools as of late. The patient had 120 Lomotil filled 3 to 4 days ago there is only 30 left. Poison control was contacted. They recommend 24-hour observation and Narcan if needed for worsening somnolence. The patient's work appears so far has been reassuring. She does remain somnolent. I will speak with the hospitalist service for observation - Vital Signs Vital signs: Temp Pulse Resp BP Pulse Ox 97.8 F 16 131/79 H 100 10/23/18 11:00 10/23/18 12:01 10/23/18 12:00 10/23/18 12:01 - Laboratory Result Diagrams: 10/23/18 09:45 10/23/18 09:45 Laboratory results interpreted by me: 10/23/18 10/23/18 10/23/18 09:45 09:45 09:45 Hgb 11.8 L Hct 35.0 L RDW 14.6 H Seg Neutrophils % 81.9 H Sodium 135.9 L BUN 24 H Urine Ketones Urine Blood Ur Leukocyte Esterase Salicylates < 1.0 L Acetaminophen < 10 L 10/23/18 10:05 Hgb Hct RDW Seg Neutrophils % Sodium BUN Urine Ketones TRACE H Urine Blood SMALL H Ur Leukocyte Esterase MODERATE H Salicylates Acetaminophen - Diagnostic Test Radiology reviewed: Reports reviewed Radiology results interpreted by me: 10/23/18 13:22 Chest X-Ray 10/23/18 09:25 IMPRESSION: Emphysematous change without evidence of acute cardiopulmonary process. - EKG Interpretation by Me EKG shows normal: Sinus rhythm Rate: Normal Rhythm: NSR Discharge - Discharge Clinical Impression: Polypharmacy Overdose Qualifiers: Encounter type: initial encounter Injury intent: accidental or unintentional Qualified Code(s): T50.901A - Poisoning by unspecified drugs, medicaments and biological substances, accidental (unintentional), initial encounter Altered mental status Qualifiers: Altered mental status type: unspecified Qualified Code(s): R41.82 - Altered mental status, unspecified Condition: Fair Disposition: ADMITTED OBSERVATION Admitting Provider: Maicol (Hospitalist) Unit Admitted: Telemetry
[2018-10-23 13:15] LABS: ACETAMINOPHEN < 10 ug/mL (10-30); ALCOHOL < 10 mg/dL (NONE DETECTED); SALICYLATE < 1.0 mg/dL (2.0-20.0)
[2018-10-23] MEDS ORDERED: LIDOCAINE 2% URO-JET 5 ML KIT MM ONE (13:20)
[2018-10-23 13:48] LABS: URINE AMPHETAMINES SCREEN NEGATIVE; URINE BARBITURATES SCREEN NEGATIVE; URINE BENZODIAZEPINES SCREEN NEGATIVE; URINE COCAINE SCREEN NEGATIVE; URINE MARIJUANA (THC) SCREEN NEGATIVE; URINE METHADONE SCREEN NEGATIVE; URINE PHENCYCLIDINE SCREEN NEGATIVE
[2018-10-23] MEDS ORDERED: TEMAZEPAM 15 MG CAPSULE PO PRN (14:02)
--- NOTE | 2018-10-23 14:02 | PDOC H&P ---
History of Present Illness Admission Date/PCP: 10/23/18 13:31 History of Present Illness: DONALD ALBRIGHT is a 68 year old female with past medical history of Crohn's disease status post total colectomy and ileostomy, depression, COPD presented with chief complaint of dehydration and confusion. Reportedly patient had [address]. several days ago now only 30 tablets are left. Patient's somehow sleepy but she responds appropriately to verbal stimuli. She denies any nausea, vomiting, fever, cough, chest pain, palpitation or diaphoresis. No headache, dizziness or blurring of vision. Her blood works are unremarkable and CT head is negative. Past Medical History Pulmonary Medical History: Reports: Chronic Obstructive Pulmonary Disease (COPD) Neurological Medical History: Denies: Seizures GI Medical History: Reports: Crohn's Disease, Gastroesophageal Reflux Disease Musculoskeltal Medical History: Reports: Arthritis Psychiatric Medical History: Reports: Depression Past Surgical History Past Surgical History: Reports: Cholecystectomy, Colostomy, Hysterectomy, Orthopedic Surgery - feet, Other - Total colectomy Social History Smoking Status: Former Smoker Frequency of Alcohol Use: None Hx Recreational Drug Use: No Drugs: None Hx Prescription Drug Abuse: No - Advance Directive Resuscitation Status: Full Code Family History Family History: Reviewed & Not Pertinent Parental Family History Reviewed: Yes Children Family History Reviewed: Yes Sibling(s) Family History Reviewed.: Yes Medication/Allergy Allergies/Adverse Reactions: codeine Allergy (Verified 10/23/18 09:50) naproxen Allergy (Verified 10/23/18 09:50) pregabalin [From Lyrica] Allergy (Verified 10/23/18 09:50) Review of Systems Constitutional: PRESENT: as per HPI Eyes: PRESENT: as per HPI Nose, Mouth, and Throat: PRESENT: as per HPI Cardiovascular: PRESENT: as per HPI Respiratory: PRESENT: as per HPI Gastrointestinal: PRESENT: as per HPI Genitourinary: PRESENT: as per HPI Musculoskeletal: PRESENT: as per HPI Neurological: PRESENT: as per HPI Psychiatric: PRESENT: as per HPI, depression Physical Exam Vital Signs: Temp Pulse Resp BP Pulse Ox 97.8 F 16 131/79 H 100 10/23/18 11:00 10/23/18 12:01 10/23/18 12:00 10/23/18 12:01 Intake & Output 10/22/18 10/23/18 10/24/18 06:59 06:59 06:59 Intake Total 1000 Balance 1000 Weight 52.163 kg General appearance: PRESENT: no acute distress Eye exam: PRESENT: conjunctiva pink Neck exam: ABSENT: carotid bruit, JVD, lymphadenopathy, thyromegaly Respiratory exam: PRESENT: clear to auscultation heydi. ABSENT: rales, rhonchi, wheezes Cardiovascular exam: PRESENT: RRR. ABSENT: diastolic murmur, rubs, systolic murmur GI/Abdominal exam: PRESENT: normal bowel sounds, soft. ABSENT: distended, guarding, mass, organolmegaly, rebound, tenderness Neurological exam: PRESENT: alert, awake Results Laboratory Results: 10/23/18 09:45 10/23/18 09:45 10/23/18 10/23/18 10/23/18 09:45 09:45 09:45 WBC 7.0 RBC 3.72 Hgb 11.8 L Hct 35.0 L MCV 94 MCH 31.6 MCHC 33.7 RDW 14.6 H Plt Count 212 Seg Neutrophils % 81.9 H Lymphocytes % 13.2 Monocytes % 4.3 Eosinophils % 0.3 Basophils % 0.3 Absolute Neutrophils 5.7 Absolute Lymphocytes 0.9 Absolute Monocytes 0.3 Absolute Eosinophils 0.0 Absolute Basophils 0.0 Sodium 135.9 L Potassium 3.9 Chloride 101 Carbon Dioxide 22 Anion Gap 13 BUN 24 H Creatinine 0.93 Est GFR ( Amer) > 60 Est GFR (Non-Af Amer) > 60 Glucose 77 Lactic Acid 1.1 Calcium 9.5 Total Bilirubin 0.5 AST 26 Alkaline Phosphatase 110 Total Protein 6.6 Albumin 4.1 Urine Color Urine Appearance Urine pH Ur Specific [place] Urine Protein Urine Glucose (UA) Urine Ketones Urine Blood Urine Nitrite Ur Leukocyte Esterase Urine WBC (Auto) Urine RBC (Auto) 10/23/18 10:05 WBC RBC Hgb Hct MCV MCH MCHC RDW Plt Count Seg Neutrophils % Lymphocytes % Monocytes % Eosinophils % Basophils % Absolute Neutrophils Absolute Lymphocytes Absolute Monocytes Absolute Eosinophils Absolute Basophils Sodium Potassium Chloride Carbon Dioxide Anion Gap BUN Creatinine Est GFR ( Amer) Est GFR (Non-Af Amer) Glucose Lactic Acid Calcium Total Bilirubin AST Alkaline Phosphatase Total Protein Albumin Urine Color YELLOW Urine Appearance SLIGHTLY-CLOUDY Urine pH 6.0 Ur Specific [place] 1.005 Urine Protein NEGATIVE Urine Glucose (UA) NEGATIVE Urine Ketones TRACE H Urine Blood SMALL H Urine Nitrite NEGATIVE Ur Leukocyte Esterase MODERATE H Urine WBC (Auto) 9 Urine RBC (Auto) 4 10/23/18 10/23/18 09:45 09:45 Creatine Kinase 49 Troponin I < 0.012 Impressions: Chest X-Ray 10/23/18 09:25 IMPRESSION: Emphysematous change without evidence of acute cardiopulmonary process. Assessment and Plan - Diagnosis (1) Acute encephalopathy Is this a current diagnosis for this admission?: Yes Plan: Probably related to drug-induced. Since she takes multiple Lomotil tablets. (2) Dehydration Is this a current diagnosis for this admission?: Yes Plan: Clinically patient looks dehydrated with dry oral bumps member and poor skin turgor. We will hydrate her cautiously. (3) Crohns disease Is this a current diagnosis for this admission?: Yes Plan: In remission (4) Depression Is this a current diagnosis for this admission?: Yes Plan: Continue home medication
--- NOTE | 2018-10-23 14:56 | RADIOLOGY REPORT (SQ) ---
EXAM DESCRIPTION: CT HEAD WITHOUT COMPLETED DATE/TIME: 10/23/2018 2:46 pm REASON FOR STUDY: AMS COMPARISON: None. TECHNIQUE: Axial images acquired through the brain without intravenous contrast. Images reviewed wi th bone, brain and subdural windows. Additional sagittal and coronal reconstructions were generated. Images stored on PACS. All CT scanners at this facility use dose modulation, iterative reconstruction, and/or weight based d osing when appropriate to reduce radiation dose to as low as reasonably achievable (ALARA). [facility]: Dose Right [facility]: CareDose [facility]: Dose Right [facility]: Teradose 4D [facility]: Smart hearo.fm RADIATION DOSE: CT Rad equipment meets quality standard of care and radiation dose reduction techniq ues were employed. CTDIvol: 53.2 mGy. DLP: 1017 mGy-cm. mGy. LIMITATIONS: None. FINDINGS: VENTRICLES: Normal size and contour. CEREBRUM: No masses. No hemorrhage. No midline shift. No evidence for acute infarction. Few scatte red areas of low density in the white matter most likely chronic small vessel ischemic changes. CEREBELLUM: No masses. No hemorrhage. No alteration of density. No evidence for acute infarction. EXTRAAXIAL SPACES: No fluid collections. No masses. ORBITS AND GLOBE: No intra- or extraconal masses. Normal contour of globe without masses. CALVARIUM: No fracture. PARANASAL SINUSES: Marked mucoperiosteal changes in the right maxillary sinus. SOFT TISSUES: No mass or hematoma. OTHER: No other significant finding. IMPRESSION: Mild chronic microvascular ischemia. Right maxillary sinus disease. No acute intracran ial imaging findings. EVIDENCE OF ACUTE STROKE: NO. COMMENT: Quality ID # [id number]: Final reports with documentation of one or more dose reduction techniques (e.g., Automated exposure control, adjustment of the mA and/or kV according to patient size, use of iterative reconstruction technique) TECHNICAL DOCUMENTATION: JOB ID: [id number] [email or web address]- All Rights Reserved Reading location - IP/workstation name: [email or web address]
[2018-10-23] MEDS: ENOXAPARIN SODIUM INJ 40 MG/0.4 ML DISP.SYRIN SUBCUT SCH (15:57)
[2018-10-23] MEDS: RINGERS SOLUTION,LACTATED 1,000 ML IV PRN (17:40)
[2018-10-23] MEDS: ONDANSETRON HCL INJ/PF 4 MG/2 ML SDV IV PRN (21:11)
[2018-10-23] MEDS: FAMOTIDINE 20 MG TABLET PO SCH (21:11)
[2018-10-24] MEDS ORDERED: ALBUTEROL SULFATE HFA (90 MCG/PUFF) 200 PUFF/8.5 GM MDI IH PRN (08:45)
[2018-10-24] MEDS ORDERED: GABAPENTIN 300 MG CAPSULE PO ONE (09:00)
[2018-10-24] MEDS: FAMOTIDINE 20 MG TABLET PO SCH (09:18)
[2018-10-24] MEDS: ENOXAPARIN SODIUM INJ 40 MG/0.4 ML DISP.SYRIN SUBCUT SCH (09:20)
[2018-10-24] MEDS: DICYCLOMINE HCL 20 MG TABLET PO SCH ×3 (09:26→17:03)
[2018-10-24] MEDS: ONDANSETRON HCL INJ/PF 4 MG/2 ML SDV IV PRN (09:33)
[2018-10-24] MEDS: RINGERS SOLUTION,LACTATED 1,000 ML IV PRN (09:36)
[2018-10-24] MEDS ORDERED: PANTOPRAZOLE SODIUM 40 MG TABLET.DR PO SCH (10:00)
[2018-10-24] MEDS ORDERED: MAGNESIUM OXIDE 400 MG TABLET PO SCH (10:00)
[2018-10-24] MEDS ORDERED: CETIRIZINE 10 MG TABLET PO SCH (10:00)
[2018-10-24] MEDS ORDERED: BUSPIRONE HCL 10 MG TABLET PO SCH (10:00)
[2018-10-24] MEDS ORDERED: VENLAFAXINE HCL 75 MG CAP.SR.24H PO SCH (10:00)
[2018-10-24] MEDS ORDERED: DULOXETINE HCL 30 MG CAPSULE.DR PO SCH (10:00)
[2018-10-24 13:37] LABS: HEMATOCRIT 31.8 % (36.0-47.0); HEMOGLOBIN 10.5 g/dL (12.0-15.5); MEAN CORPUSCULAR HEMOGLOBIN 31.1 pg (27.0-33.4); MEAN CORPUSCULAR VOLUME 94 fl (80-97); PLATELET COUNT 184 10^3/uL (150-450); RED BLOOD COUNT 3.38 10^6/uL (3.72-5.28); RED CELL DISTRIBUTION WIDTH 14.8 % (11.5-14.0); WHITE BLOOD COUNT 4.7 10^3/uL (4.0-10.5)
[2018-10-24 13:54] LABS: ANION GAP 8 (5-19); BLOOD UREA NITROGEN 10 mg/dL (7-20); CALCIUM 8.9 mg/dL (8.4-10.2); CARBON DIOXIDE 24 mmol/L (22-30); CHLORIDE 107 mmol/L (98-107); GLUCOSE 145 mg/dL (75-110); POTASSIUM 4.1 mmol/L (3.6-5.0)
[2018-10-24] MEDS ORDERED: GABAPENTIN 300 MG CAPSULE PO SCH (14:00)
--- NOTE | 2018-10-24 14:39 | EKG REPORT ---
SEVERITY:- NORMAL ECG - SINUS RHYTHM : Confirmed by: Darron Carranza 24-Oct-2018 14:39:17
[2018-10-24 15:56] VITALS: BP 109/50
--- NOTE | 2018-10-24 16:07 | PSYCHOLOGICAL NOTE ---
Psych Note - Psych Note Date seen by psych provider: 10/24/18 Time seen by psych provider: 14:10 Psych Note: Reason for Consult: Overdose DONALD ALBRIGHT is a 68 year old female with past medical history of Crohn's disease status post total colectomy and ileostomy, depression, COPD presented with chief complaint of dehydration and confusion. Reportedly patient had 120 Limited Fld. several days ago now only 30 tablets are left. Patient denies she took the medication to hurt herself. She reports that she was trying to "keep going and stay hydrated." She continued to report that she personally called 911 because she was not getting any better felt weak and was confused. Patient reports that she was taking a medication because she could not sleep; "I was scared that it (colostomy bag) would burst because that can happen." Patient does identify feeling more depressed after her daughter left on Monday stating that they had a really nice visit and after she left she was feeling alone and it was "total silence" in the house. She states that she was not eating or drinking because she was feeling so poorly and so nauseous. Patient disclosed that she used to live in assisted living however people helped her fight to get back in her own place. She states that she does not need to live in "something like that... I do not want to in assisted living I want to be able to live my life." She reports that she is fully capable of caring for her self however admits that when she gets sick it is very difficult to care for herself. 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 She disclosed that she has more difficult time with PRN medications since they do not come in the blister packs like her other medications; "my memory is getting bad it is hard to remember if I took my medication... all my meds come in blister packs except for my PRN meds... I have been taking meds since I was 20, is not something I want to do, it is part of my life. while I know what is wrong, it is so easy to just throw them in your mouth and keep going for the day...You just don't even think about it." Patient is alert and orientated to person, place, time and circumstance. Mood is euthymic with congruent affect as evidenced by smiling engaging with clinician. Patient denies suicidal and homicidal ideation. Delusions are absent behaviors congruent with an intact reality based presentation i.e. organized linear thought process. Eye contact was well-maintained. Conversational speech is within normal rate, tone and prosody. Intellectual abilities appear to be within the average range. Attention and concentration are good. Insight, judgment, impulse control are fair. 296.30 (F33.9) Major depressive disorder per history provided by patient No medication recommendations at this time Impression\\plan: Patient is cleared from acute psychiatric services. Patient does not meet IVC criteria per [place] GS 122C. Patient openly engaged with clinician denies intentionally overdosing to harm herself. She reports that she personally called 911 because she felt that she was getting sicker. She confirms having some difficulty with her PRN medications and remembering when she is taking them. She did disclose having home health come to her house after having an episode where she fell 3 times however still identifies having significant difficulty caring for herself when she is sick. Patient was very honest and open with her feelings in regards to depression after her daughter left and being scared going home because feeling sick. She adamantly denies wanting to and engaged in talking about wanting to live her life and thought to get out of assisted living so she can have her own home which she shares with her cat she rescued from the half-way. Patient is highly encouraged to engage in therapeutic services and discuss her medications with her PCM. Dr. Green was consulted to care management of this patient; attending physicians in agreement with recommendations and disposition.
[2018-10-24] MEDS ORDERED: TRAZODONE HCL 50 MG TABLET PO SCH (22:00)
[2018-10-24] MEDS ORDERED: QUETIAPINE FUMARATE 100 MG TABLET PO SCH (22:00)
--- NOTE | 2018-10-29 18:34 | PDOC DISCHARGE SUMMARY ---
General - Admit/Disc Date/PCP Admission Date/Primary Care Provider: 10/23/18 13:31 Discharge Date: 10/24/18 - Discharge Diagnosis (1) Acute encephalopathy Is this a current diagnosis for this admission?: Yes Summary: Resolved; patient is now alert and oriented x4. Secondary to Lomotil overuse for management of chronic diarrhea. The patient was admitted to the medical floor and monitored on continuous cardiac telemetry. Poison control was contacted; recommended supportive care and 24-hour observation. Fortunately the patient did not require Narcan for reversal. She is discharged to home with home health services in stable condition and at her baseline mentation and functional status. She is encouraged to follow-up with her primary care provider within 1 week and with her traveling phlebotomist within 2 to 4 weeks. She is instructed to take her medications as prescribed; do not overuse medications. She is advised to return to the emergency department as needed for concerning symptoms. (2) Opiate overdose Is this a current diagnosis for this admission?: Yes Summary: The patient presented to the emergency department via EMS with suspected Lomotil overdose. EMS presented a prescription bottle that was missing approximately 60 tabs. Poison control was contacted; advised 24-hour monitoring with Narcan as needed for reversal. Mental health services were consulted; have cleared the patient from IVC status. However, they do note that the patient has severe depression, anxiety, and OCD related to her colostomy. The patient's home medication regiment was continued unchanged with the strong recommendation that she establish with a psychiatrist following discharge for further medication management. (3) Crohns disease Is this a current diagnosis for this admission?: Yes Summary: Currently in remission; recommend following up with established traveling phlebotomist within the next 2 to 4 weeks due to frequent loose stools. (4) Dehydration Is this a current diagnosis for this admission?: Yes Summary: Resolved; patient was provided IV fluids overnight. Now tolerating adequate p.o. fluids. (5) Depression Is this a current diagnosis for this admission?: Yes Summary: Continue home medication regiment unchanged. Recommend establishing with a psychiatrist for further medication management. - Additional Information Resuscitation Status: Full Code Discharge Diet: Regular Discharge Activity: Activity As Tolerated, Balance Activity w/Rest Prescriptions: Gabapentin [Neurontin 300 mg Capsule] 600 mg PO Q8 #90 capsule Home Medications: Albuterol Sulfate [Proair HFA Inhalation Aerosol 8.5 gm MDI] 2 puff IH Q6HP PRN 10/23/18 Buspirone HCl [Buspar 15 mg Tablet] 15 mg PO Q12 10/23/18 Cetirizine HCl [Zyrtec 10 mg Tablet] 10 mg PO DAILY 10/23/18 Cyanocobalamin (Vitamin B-12) [Vitamin B-12 1000 mcg Tablet] 1,000 mcg PO DAILY 10/23/18 Dicyclomine HCl [Bentyl 20 mg Tablet] 20 mg PO QID 10/23/18 Duloxetine HCl [Cymbalta] 60 mg PO DAILY 10/23/18 Ergocalciferol (Vitamin D2) [Drisdol 50,000 unit (1.25MG) Capsule] 50,000 unit PO TH@1000 10/23/18 Gabapentin [Neurontin 300 mg Capsule] 600 mg PO Q8 10/23/18 Magnesium Oxide [Mag-Ox 400 mg Tablet] 400 mg PO DAILY 10/23/18 Omeprazole 40 mg PO DAILY 10/23/18 Ondansetron HCl [Zofran 4 mg Tablet] 8 mg PO Q12 10/23/18 Quetiapine Fumarate [Seroquel 100 mg Tablet] 100 mg PO QHS 10/23/18 Trazodone HCl [Desyrel 50 mg Tablet] 50 mg PO QHS 10/23/18 Venlafaxine HCl [Venlafaxine HCl ER] 150 mg PO DAILY 10/23/18 Gabapentin [Neurontin 300 mg Capsule] 600 mg PO Q8 #90 capsule 10/24/18 History of Present Illness History of Present Illness: Per H&P by Dr. Milian: DONALD ALBRIGHT is a 68 year old female with past medical history of Crohn's disease status post total colectomy and ileostomy, depression, COPD presented with chief complaint of dehydration and confusion. Reportedly patient had 120 Limited Fld. several days ago now only 30 tablets are left. Patient's somehow sleepy but she responds appropriately to verbal stimuli. She denies any nausea, vomiting, fever, cough, chest pain, palpitation or diaphoresis. No headache, dizziness or blurring of vision. Her blood works are unremarkable and CT head is negative. Physical Exam Vital Signs: Temp Pulse Resp BP Pulse Ox 98.6 F 70 16 109/50 L 99 10/24/18 17:36 10/24/18 17:36 10/24/18 17:36 10/24/18 17:36 10/24/18 17:36 General appearance: PRESENT: no acute distress, cooperative, disheveled, well- developed, well-nourished Head exam: PRESENT: atraumatic, normocephalic Eye exam: PRESENT: conjunctiva pink, EOMI, PERRLA. ABSENT: scleral icterus Ear exam: PRESENT: normal external ear exam Mouth exam: PRESENT: moist, tongue midline Teeth exam: PRESENT: poor dentation Neck exam: ABSENT: carotid bruit, JVD, lymphadenopathy, thyromegaly Respiratory exam: PRESENT: clear to auscultation heydi, symmetrical, unlabored. ABSENT: rales, rhonchi, wheezes Cardiovascular exam: PRESENT: RRR, +S1, +S2. ABSENT: diastolic murmur, rubs, systolic murmur Pulses: PRESENT: normal dorsalis pedis pul Vascular exam: PRESENT: normal capillary refill GI/Abdominal exam: PRESENT: normal bowel sounds, soft, tenderness - Vague, gen eralized, other - Colostomy. ABSENT: distended, guarding, mass, organolmegaly, rebound Rectal exam: PRESENT: deferred Extremities exam: PRESENT: full ROM. ABSENT: calf tenderness, clubbing, pedal edema Neurological exam: PRESENT: alert, awake, oriented to person, oriented to place, oriented to time, oriented to situation, CN II-XII grossly intact. ABSENT: motor sensory deficit Psychiatric exam: PRESENT: agitated, anxious. ABSENT: homicidal ideation, suicidal ideation Skin exam: PRESENT: dry, intact, warm. ABSENT: cyanosis, rash Results Laboratory Results: 10/24/18 13:17 10/24/18 13:17 10/23/18 10/23/18 09:45 09:45 Creatine Kinase 49 Troponin I < 0.012 Impressions: Chest X-Ray 10/23/18 09:25 IMPRESSION: Emphysematous change without evidence of acute cardiopulmonary process. Head CT 10/23/18 12:43 IMPRESSION: Mild chronic microvascular ischemia. Right maxillary sinus disease. No acute intracranial imaging findings. EVIDENCE OF ACUTE STROKE: NO. Qualifiers - * PATIENT BEING DISCHARGED WITH ANY OF THE FOLLOWING DIAGNOSIS: No Acute Heart Failure - Is this a Heart Failure Patient?: No Plan Discharge Plan: Patient is discharged home with home health nursing, physical therapy, aide and social media editor. Patient is advised to follow-up with her primary care provider within 1 week. She is encouraged to make a follow-up appointment with Dr. Lambert for the earliest available. Strongly recommended that the patient establish with a psychiatrist for evaluation and management of her depression/OCD medications. She was instructed to take her medications as prescribed and not overuse medications. If she finds that she requires more medications than his allotted for management of her diarrhea, she should contact her primary care provider or traveling phlebotomist. She is instructed to return to the emergency department as needed for concerning symptoms. Time Spent: Greater than 30 Minutes
== END 2018-10-24 18:10 | disposition home health service (06) ==
LOC: ER 09:05 → EH 13:31 → 4S 17:55
PROVIDERS: ADMIT Internal Medicine; ATTEND Internal Medicine
DX: G92 Toxic encephalopathy (principal); T47.6X5A Adverse effect of antidiarrheal drugs, initial encounter; K50.90 Crohn's disease, unspecified, without complications; E86.0 Dehydration; F33.9 Major depressive disorder, recurrent, unspecified; J44.9 Chronic obstructive pulmonary disease, unspecified; K21.9 Gastro-esophageal reflux disease without esophagitis; Z79.899 Other long term (current) drug therapy; Z90.49 Acquired absence of other specified parts of digestive tract; Z90.710 Acquired absence of both cervix and uterus; Z87.891 Personal history of nicotine dependence; Z93.2 Ileostomy status
CPT/HCPCS: 93005; 99285; 96360; 36415 ×2; 87040; 80307 ×4; 82550; 85025; 85027; 85610; 80048; 80053; 81001; 84484; 83605; 71045; 70450; 93010; G0378 ×3; A9270 ×10; J1650; J3490 ×3; J2405 ×2; J7030; J7120 ×2; J1642

== ENCOUNTER 2019-03-06 01:57 | Emergency (ER) | payer MEDICARE, MEDICAID ==
[2019-03-06] MEDS ORDERED: ACETAMINOPHEN 325 MG TABLET PO ONE (02:25)
--- NOTE | 2019-03-06 04:04 | RADIOLOGY REPORT (SQ) ---
EXAM DESCRIPTION: XR ANKLE 3 OR MORE VIEWS COMPLETED DATE/TME: 03/06/2019 00:00 CLINICAL HISTORY: 68 years, Female, PAIN COMPARISON: None. NUMBER OF VIEWS: 3 TECHNIQUE: 3 views left ankle LIMITATIONS: None. FINDINGS: Osteopenia. Diffuse soft tissue swelling. Equivocal lucency seen on the oblique view associated with the fifth metatarsal. Correlate with site of pain. No other evidence for acute fracture or dislocation. Plantar heel spur.. IMPRESSION: Questionable nondisplaced fracture of the fifth metatarsal. Osteopenia. Soft tissue swelling of the ankle. Calcaneal spur copyright 2010 [email or web address]- All Rights Reserved
[2019-03-06] MEDS ORDERED: OXYCODONE HCL IR 5 MG TABLET PO ONE (05:25)
[2019-03-06] MEDS ORDERED: HYDROCODONE/ACETAMINOPHEN 5-325 MG (6 TAB/ER DISP) PO PRN (05:27)
--- NOTE | 2019-03-06 05:37 | ER Document Report ---
HPI - HPI Time Seen by Provider: 03/06/19 05:07 Pain Level: 5 Context: Patient is a 68-year-old female that comes to the emergency department for chief complaint of left foot injury. She states that she started having pain after walking back into the house from being outside, she states she is unsure if she twisted it or injured it. She states since that time it has become swollen and more difficult to walk on. She states she has had many fractures and has "thin bones". She denies any other locations of pain except for her foot. She denies blood thinner use or diabetes. She denies fever or chills. She comes by EMS. - CONSTITUTIONAL Constitutional: DENIES: Fever, Chills - REPRODUCTIVE Reproductive: DENIES: : - DERM Skin Color: Normal Past Medical History - General Information source: Patient - Social History Smoking Status: Current Every Day Smoker Frequency of alcohol use: None Drug Abuse: None Lives with: Family Family History: Reviewed & Not Pertinent Patient has suicidal ideation: No Patient has homicidal ideation: No Pulmonary Medical History: Reports: Hx COPD Neurological Medical History: Denies: Hx Seizures Renal/ Medical History: Denies: Hx Peritoneal Dialysis GI Medical History: Reports: Hx Crohn's Disease, Hx Gastroesophageal Reflux Disease, Hx Colonoscopy, Hx Endoscopy Musculoskeletal Medical History: Reports Hx Arthritis, Reports Hx Musculoskeletal Deformity Skin Medical History: Reports Hx MRSA Psychiatric Medical History: Reports: Hx Depression Past Surgical History: Reports: Hx Abdominal Surgery - ileostomy, Hx Cholecystectomy, Hx Colostomy, Hx Hysterectomy, Hx Orthopedic Surgery - feet, Hx Rectal Surgery - removed, Other - Total colectomy - Immunizations Hx Diphtheria, Pertussis, Tetanus Vaccination: No Hx Pneumococcal Vaccination: 12/23/15 Vertical Provider Document - CONSTITUTIONAL General Appearance: WD/WN, No Apparent Distress - INFECTION CONTROL TRAVEL OUTSIDE OF THE [place] IN LAST 30 DAYS: No - HEENT HEENT: Atraumatic, Normocephalic - NECK Neck: Normal Inspection - RESPIRATORY Respiratory: Breath Sounds Normal, No Respiratory Distress - CARDIOVASCULAR Cardiovascular: Regular Rate, Regular Rhythm - GI/ABDOMEN Gastrointestinal: Abdomen Soft, Abdomen Non-Tender - BACK Back: Normal Inspection - MUSCULOSKELETAL/EXTREMETIES Musculoskeletal/Extremeties: MAEW, FROM, Tender - There is tenderness over the left mid lateral foot dorsally with some soft tissue swelling extending back up towards the ankle. Toes are unremarkable except for chronic crossing/deformity. Normal capillary refill and sensation. Normal range of motion at the ankle. Normal leg, knee exam. Pain with placing foot on the ground. - NEURO Level of Consciousness: Awake, Alert, Appropriate Motor/Sensory: No Motor Deficit, No Sensory Deficit - DERM Integumentary: Warm, Dry, No Rash Course - Re-evaluation Re-evalutation: X-ray does indicate left metatarsal fracture at the fifth metatarsal. No displacement. This is where patient is tender, there are not ideal views of the foot but because this was the location of tenderness in the ankle was well visualized with the rest of the swelling is I feel this is appropriate. No other injuries or concerning findings noted. Discussed with patient. Placed in splint, provided with pain medication, referred to orthopedics, discussed follow-up and return precautions. Patient states appreciation and agreement. - Vital Signs Vital signs: Temp Pulse Resp BP Pulse Ox 98.3 F 59 L 18 128/73 H 99 03/06/19 05:11 03/06/19 05:11 03/06/19 05:11 03/06/19 05:11 03/06/19 05:11 Procedures - Immobilization Left foot/ankle Pre-Proc Neuro Vasc Exam: Normal Immobilizer type: Posterior ankle Performed by: PCT Post-Proc Neuro Vasc Exam: Normal Alignment checked and good: Yes Discharge - Discharge Clinical Impression: Left foot pain Fracture of metatarsal of left foot, closed Qualifiers: Encounter type: initial encounter Metatarsal bone: fifth Fracture alignment: nondisplaced Qualified Code(s): S92.355A - Nondisplaced fracture of fifth metatarsal bone, left foot, initial encounter for closed fracture Condition: Stable Disposition: HOME, SELF-CARE Additional Instructions: You have a nondisplaced fracture of the fifth metatarsal in your foot (a fracture of the bone in your foot that attaches to your pinky toe but this is still in alignment). Please wear the splint, call the orthopedic referral for close follow-up and additional management, take the pain medication if needed. Return for any concerning or worsening symptoms including severe worsening swelling or pain. Prescriptions: Oxycodone HCl/Acetaminophen [Percocet 5-325 mg Tablet] 1 tab PO Q4H PRN #15 tablet PRN Reason: Referrals: ALEXANDRA TRINH MD [ACTIVE STAFF] - Follow up tomorrow
[2019-03-06 07:36] VITALS: BP 137/69
== END 2019-03-06 07:40 | disposition home or self-care (01) ==
LOC: ER 01:57
DX: S92.355A Nondisplaced fracture of fifth metatarsal bone, left foot, initial encounter for closed fracture (principal); X58.XXXA Exposure to other specified factors, initial encounter; J44.9 Chronic obstructive pulmonary disease, unspecified; F17.200 Nicotine dependence, unspecified, uncomplicated
CPT/HCPCS: 99283; 73610; 29515; A9270 ×3

== ENCOUNTER 2019-05-10 11:39 | Emergency (ER) | payer MEDICARE, MEDICAID ==
--- NOTE | 2019-05-10 12:14 | ER Document Report ---
ED Medical Screen (RME) - General Chief Complaint: Urinary Problem Stated Complaint: URINARY PROBLEM Time Seen by Provider: 05/10/19 12:08 TRAVEL OUTSIDE OF THE [place] IN LAST 30 DAYS: No - HPI Notes: 05/10/19 12:12 Patient is a 68-year-old female with a history of chronic opioid use, Crohn's disease, colectomy presents complaining of having urinary burning, urgency that began this past Monday when she was started on Cipro. Patient states that around the same time she started having some confusion and some hallucinations. Patient states that she saw her living cat twice which started to concern her. Patient states that she did have some candy in her mouth one afternoon and took a nap and woke up choking to it. Patient states that she has had a cough for the past couple days since then. Denies any headache, fever, head injury, falls, neck pain, URI, sore throat, chest pain, palpitations, syncope, shortness of breath, wheeze, dyspnea, abdominal pain, nausea/vomiting/diarrhea, loss of control of bowel or bladder, numbness/tingling, saddle anesthesia, muscle paralysis/weakness, or rash. I have treated and performed a rapid initial assessment of this patient. A comprehensive ED assessment and evaluation of the patient, analysis of test results and completion of medical decision making process will be conducted by additional ED providers. PHYSICAL EXAMINATION: GENERAL: Well-appearing, well-nourished and in no acute distress. A&Ox4. Answers questions appropriately. Eyes: No raccoon eyes, PERRLA, EOMI bilaterally. Neuro: NIH 0, GCS 15, cranial nerves grossly intact. - Related Data Allergies/Adverse Reactions: codeine Allergy (Verified 05/10/19 12:06) naproxen Allergy (Verified 05/10/19 12:06) pregabalin [From Lyrica] Allergy (Verified 05/10/19 12:06) Past Medical History - Social History Chew tobacco use (# tins/day): No Drug Abuse: None Pulmonary Medical History: Reports: Hx COPD Neurological Medical History: Denies: Hx Seizures Renal/ Medical History: Denies: Hx Peritoneal Dialysis GI Medical History: Reports: Hx Crohn's Disease, Hx Gastroesophageal Reflux Disease, Hx Colonoscopy, Hx Endoscopy Musculoskeltal Medical History: Reports Hx Arthritis, Reports Hx Musculoskeletal Deformity Skin Medical History: Reports Hx MRSA Psychiatric Medical History: Reports: Hx Depression Past Surgical History: Reports: Hx Abdominal Surgery - ileostomy, Hx Cholecystectomy, Hx Colostomy, Hx Hysterectomy, Hx Orthopedic Surgery - feet, Hx Rectal Surgery - removed, Other - Total colectomy - Immunizations Hx Diphtheria, Pertussis, Tetanus Vaccination: No Physical Exam - Vital signs Vitals: Temp Pulse Resp BP Pulse Ox 98.4 F 76 18 167/88 H 100 05/10/19 12:05/10/19 12:05/10/19 12:05/10/19 12:05/10/19 12:01 Course - Vital Signs Vital signs: Temp Pulse Resp BP Pulse Ox 98.4 F 76 18 167/88 H 100 05/10/19 12:01 05/10/19 12:01 05/10/19 12:05/10/19 12:05/10/19 12:01
--- NOTE | 2019-05-10 13:04 | RADIOLOGY REPORT (SQ) ---
EXAM DESCRIPTION: CT HEAD WITHOUT COMPLETED DATE/TIME: 05/10/2019 12:52 pm REASON FOR STUDY: altered mental status COMPARISON: 10/23/2018 TECHNIQUE: Axial images acquired through the brain without intravenous contrast. Images reviewed wi th bone, brain and subdural windows. Additional sagittal and coronal reconstructions were generated. Images stored on PACS. All CT scanners at this facility use dose modulation, iterative reconstruction, and/or weight based d osing when appropriate to reduce radiation dose to as low as reasonably achievable (ALARA). [facility]: Dose Right [facility]: CareDose [facility]: Dose Right [facility]: Teradose 4D [facility]: Fluentify RADIATION DOSE: CT Rad equipment meets quality standard of care and radiation dose reduction techniq ues were employed. CTDIvol: 53.2 mGy. DLP: 991 mGy-cm. mGy. LIMITATIONS: None. FINDINGS: VENTRICLES: Age appropriate. CEREBRUM: No masses. No hemorrhage. No midline shift. Stable mild Areas of low density in the whit e matter most likely due to chronic micro-vascular ischemic change, greatest within the left perivent ricular white matter. No evidence for acute infarction. CEREBELLUM: No masses. No hemorrhage. No alteration of density. No evidence for acute infarction. EXTRAAXIAL SPACES: Mild age-related involutional change. No fluid collections. No masses. ORBITS AND GLOBE: No intra- or extraconal masses. Normal contour of globe without masses. CALVARIUM: No fracture. PARANASAL SINUSES: Mucosal thickening and frothy debris within the right maxillary sinus. Remaining sinuses and mastoid air cells are clear. SOFT TISSUES: No mass or hematoma. OTHER: No other significant finding. IMPRESSION: No evidence of acute intracranial process. Stable nonspecific white matter changes, lik francisca sequelae of microangiopathic disease. Mild sinus disease within the right maxillary sinus. EVIDENCE OF ACUTE STROKE: NO. TECHNICAL DOCUMENTATION: JOB ID: [id number] Quality ID # [id number]: Final reports with documentation of one or more dose reduction techniques (e.g., Au tomated exposure control, adjustment of the mA and/or kV according to patient size, use of iterative reconstruction technique) 2010 [employer]- All Rights Reserved Reading location - IP/workstation name: [email or web address]
--- NOTE | 2019-05-10 13:18 | RADIOLOGY REPORT (SQ) ---
EXAM DESCRIPTION: CHEST 2 VIEWS COMPLETED DATE/TIME: 05/10/2019 1:02 pm REASON FOR STUDY: cough COMPARISON: 10/23/2018 EXAM PARAMETERS: NUMBER OF VIEWS: two views TECHNIQUE: Digital Frontal and Lateral radiographic views of the chest acquired. RADIATION DOSE: NA LIMITATIONS: none FINDINGS: LUNGS AND PLEURA: Emphysematous change hyperinflation and chronic interstitial changes. N o focal consolidation, pleural effusion or pneumothorax. MEDIASTINUM AND HILAR STRUCTURES: No masses or contour abnormalities. HEART AND VASCULAR STRUCTURES: Heart normal size. No evidence for failure. BONES: No acute findings. HARDWARE: Right IJ based chest port with catheter tip at cavoatrial junction. OTHER: No other significant finding. IMPRESSION: Emphysema without evidence of acute cardiopulmonary process. TECHNICAL DOCUMENTATION: JOB ID: [id number] 2010 [employer]- All Rights Reserved Reading location - IP/workstation name: [email or web address]
--- NOTE | 2019-05-10 13:54 | EKG REPORT ---
SEVERITY:- ABNORMAL ECG - SINUS RHYTHM CONSIDER LEFT VENTRICULAR HYPERTROPHY : Confirmed by: Fozia Hooks MD 10-May-2019 13:53:11
[2019-05-10 14:37] LABS: ABSOLUTE BASOPHILS # (AUTO) 0.1 10^3/uL (0.0-0.2); ABSOLUTE EOSINOPHILS # (AUTO) 0.1 10^3/uL (0.0-0.6); ABSOLUTE LYMPHOCYTES (AUTO) 1.4 10^3/uL (0.5-4.7); ABSOLUTE MONOCYTES (AUTO) 0.3 10^3/uL (0.1-1.4); ABSOLUTE NEUT (AUTO) 3.5 10^3/uL (1.7-8.2); BASOPHILS % (AUTO) 1.4 % (0-2); EOSINOPHILS % (AUTO) 1.2 % (0-6); HEMATOCRIT 35.6 % (36.0-47.0); HEMOGLOBIN 12.1 g/dL (12.0-15.5); LYMPHOCYTES % (AUTO) 26.4 % (13-45); MEAN CORPUSCULAR VOLUME 94 fl (80-97); MONOCYTES % (AUTO) 6.1 % (3-13); PLATELET COUNT 216 10^3/uL (150-450); RED BLOOD COUNT 3.78 10^6/uL (3.72-5.28); RED CELL DISTRIBUTION WIDTH 14.3 % (11.5-14.0); SEGMENTED NEUTROPHILS % (AUTO) 64.9 % (42-78); TOTAL CELLS COUNTED % (AUTO) 100 %; WHITE BLOOD COUNT 5.5 10^3/uL (4.0-10.5)
[2019-05-10 14:54] LABS: ALBUMIN 4.4 g/dL (3.5-5.0); ALKALINE PHOSPHATASE 115 U/L (38-126); ANION GAP 12 (5-19); ASPARTATE AMINO TRANSFERASE 31 U/L (14-36); BILIRUBIN,DIRECT 0.3 mg/dL (0.0-0.4); BILIRUBIN,TOTAL 0.5 mg/dL (0.2-1.3); BLOOD UREA NITROGEN 14 mg/dL (7-20); CALCIUM 9.8 mg/dL (8.4-10.2); CARBON DIOXIDE 21 mmol/L (22-30); CHLORIDE 106 mmol/L (98-107); GLUCOSE 95 mg/dL (75-110); POTASSIUM 3.4 mmol/L (3.6-5.0); TOTAL PROTEIN 7.5 g/dL (6.3-8.2)
[2019-05-10] MEDS ORDERED: NORMAL SALINE 1000 ML 1,000 ML IV ONE (15:25)
--- NOTE | 2019-05-10 15:25 | ER Document Report ---
ED GI/ - General Chief Complaint: Urinary Problem Stated Complaint: URINARY PROBLEM Time Seen by Provider: 05/10/19 12:08 Primary Care Provider: ELEUTERIO LANG PA-C [Primary Care Provider] - Follow up in 3-5 days Mode of Arrival: Ambulatory Information source: Patient Notes: 68-year-old female presented to ED for complaint of urinary burning frequency and urgency that began on Monday. She said she was started on Cipro earlier for UTI and on Monday she had some emesis with some blood in it so her primary care doctor told her to stop the Cipro and she was going to start on Keflex. She states she never did get the order for the Keflex and now she is having some confusion and hallucinations. She states she saw her cat twice and is becoming concerned. She states earlier this afternoon she was sucking on a piece of candy and choked on it. She states she has had some coughing off and on for the last couple days. While she was in the triage area a CT of the head chest x-ray and blood work and urine were ordered. CT shows mild sinus disease in the right maxillary sinus otherwise chronic microangiopathic disease. Chest x-ray shows emphysema without any acute respiratory processes CBC shows a WBC of 0.5 0.5 hemoglobin 12.1 hematocrit of 35.7 and segs of 64.9 no bacterial infection. Chemistry shows a sodium of 138 potassium of 3.4 CO2 of 21 chloride of 106. Waiting for the [facility]A TRAVEL OUTSIDE OF THE [place] IN LAST 30 DAYS: No - HPI Patient complains to provider of: Vomiting - Very small amount, Other - Some mild confusion abdominal pain burning or frequency with urine Onset: Other - Couple days Timing/Duration: Gradual Quality of pain: Burning - And frequency with urine, Cramping Severity at maximum: Moderate Severity in ED: Moderate Pain Level: 3 Location: Suprapubic Vaginal bleeding (Compared to normal period): None Menstrual period history: Post-menopausal Associated symptoms: Blood in stool - States she has blood in her ileostomy pouch, Nausea, Vomiting - Very scant amount, Other - Cough confusion Exacerbated by: Denies Relieved by: Denies Similar symptoms previously: Yes Recently seen / treated by doctor: Yes - Related Data Allergies/Adverse Reactions: codeine Allergy (Verified 05/10/19 12:06) naproxen Allergy (Verified 05/10/19 12:06) pregabalin [From Lyrica] Allergy (Verified 05/10/19 12:06) Past Medical History - General Information source: Patient - Social History Smoking Status: Current Every Day Smoker Cigarette use (# per day): Yes - Half pack a day Chew tobacco use (# tins/day): No Smoking Education Provided: Yes - 4 minutes Frequency of alcohol use: None Drug Abuse: None Lives with: Alone Family History: Reviewed & Not Pertinent Patient has suicidal ideation: No Patient has homicidal ideation: No - Past Medical History Cardiac Medical History: Reports: None Pulmonary Medical History: Reports: Hx COPD EENT Medical History: Reports: None Neurological Medical History: Reports: None Endocrine Medical History: Reports: None Renal/ Medical History: Reports: None Malignancy Medical History: Reports: None GI Medical History: Reports: Hx Crohn's Disease, Hx Gastroesophageal Reflux Disease, Hx Colonoscopy, Hx Endoscopy, Other - Ileostomy Musculoskeletal Medical History: Reports Hx Arthritis, Reports Hx Musculoskeletal Deformity Skin Medical History: Reports Hx MRSA Psychiatric Medical History: Reports: Hx Depression Traumatic Medical History: Reports: None Infectious Medical History: Reports: None Past Surgical History: Reports: Hx Bowel Diversion - Ileostomy, Hx Bowel Surgery, Hx Cholecystectomy, Hx Colostomy, Hx Hysterectomy, Hx Orthopedic Surgery - feet, Hx Rectal Surgery - removed, Other - Total colectomy - Immunizations Hx Diphtheria, Pertussis, Tetanus Vaccination: No Hx Pneumococcal Vaccination: 12/23/15 Review of Systems - Review of Systems Constitutional: No symptoms reported EENT: No symptoms reported Cardiovascular: No symptoms reported Respiratory: No symptoms reported Gastrointestinal: Abdominal pain - Suprapubic Genitourinary: Burning, Frequency, Urgency Female Genitourinary: No symptoms reported Musculoskeletal: No symptoms reported Skin: No symptoms reported Hematologic/Lymphatic: No symptoms reported Neurological/Psychological: Confusion, Hallucinations Physical Exam - Vital signs Vitals: Temp Pulse Resp BP Pulse Ox 98.4 F 76 18 167/88 H 100 05/10/19 12:01 05/10/19 12:01 05/10/19 12:01 05/10/19 12:01 05/10/19 12:01 Interpretation: Normal - General General appearance: Appears well, Alert - HEENT Head: Normocephalic, Atraumatic Eyes: Normal Pupils: PERRL - Respiratory Respiratory status: No respiratory distress Chest status: Nontender Breath sounds: Normal Chest palpation: Normal - Cardiovascular Rhythm: Regular Heart sounds: Normal auscultation Murmur: No - Abdominal Inspection: Normal Distension: No distension Bowel sounds: Normal Tenderness: Tender - Suprapubic, Other - Ileostomy intact with yellow-green drainage Organomegaly: No organomegaly - Back Back: Normal, Nontender - Extremities General upper extremity: Normal inspection, Nontender, Normal color, Normal ROM, Normal temperature General lower extremity: Normal inspection, Nontender, Normal color, Normal ROM, Normal temperature, Normal weight bearing. No: Faizan's sign - Neurological Neuro grossly intact: Yes Cognition: Normal Orientation: AAOx4 Kiran Coma Scale Eye Opening: Spontaneous Lena Coma Scale Verbal: Oriented Lena Coma Scale Motor: Obeys Commands Lena Coma Scale Total: 15 Speech: Normal Motor strength normal: LUE, RUE, LLE, RLE Sensory: Normal - Psychological Associated symptoms: Normal affect, Normal mood - Skin Skin Temperature: Warm Skin Moisture: Dry Skin Color: Normal Course - Re-evaluation Re-evalutation: 05/10/19 17:19 Discussed all results with patient and written report of all results given to patient to follow-up with her primary care doctor. Family member did come and take patient home. Family members states patient frequently acts this way. Discharge instructions discussed with family member. - Vital Signs Vital signs: Temp Pulse Resp BP Pulse Ox 98.2 F 70 17 152/78 H 97 05/10/19 17:02 05/10/19 17:02 05/10/19 17:02 05/10/19 17:02 05/10/19 17:02 - Laboratory Result Diagrams: 05/10/19 14:18 05/10/19 14:18 Laboratory results interpreted by me: 05/10/19 05/10/19 14:18 14:18 Hct 35.6 L RDW 14.3 H Potassium 3.4 L Carbon Dioxide 21 L - Diagnostic Test Radiology reviewed: Image reviewed, Reports reviewed Discharge - Discharge Clinical Impression: urinary discomfort Condition: Stable Disposition: HOME, SELF-CARE Additional Instructions: Your seen today for urinary discomfort. You state that you were told earlier in the week that you had a UTI and was started on Cipro. Your urine is negative for UTI at this time. I have discussed your CT of the head, your chest x-ray, your CBC chemistry and u rine with you and given you a written report of all of these test. Please take these to your primary care doctor. You do not need antibiotics at this time. There is no UTI. FOLLOW-UP CARE: If you have been referred to a physician for follow-up care, call the physicians office for an appointment as you were instructed or within the next two days. If you experience worsening or a significant change in your symptoms, notify the physician immediately or return to the Emergency Department at any time for re-evaluation. Forms: Elevated Blood Pressure, Smoking Cessation Education Referrals: ELEUTERIO LANG PA-C [Primary Care Provider] - Follow up in 3-5 days
[2019-05-10 16:22] LABS: APPEARANCE,URINE CLEAR; BILIRUBIN,URINE NEGATIVE (NEGATIVE); COLOR,URINE STRAW; GLUCOSE, URINE NEGATIVE (NEGATIVE); KETONES,URINE NEGATIVE (NEGATIVE); LEUKOCYTE ESTERASE,URINE NEGATIVE (NEGATIVE); NITRITE,URINE NEGATIVE (NEGATIVE); PROTEIN,URINE NEGATIVE (NEGATIVE); URINE SPECIFIC GRAVITY 1.005; UROBILINOGEN,URINE NEGATIVE mg/dL (<2.0)
[2019-05-10] MEDS ORDERED: POTASSIUM CHLORIDE 10 MEQ TABLET.ER PO ONE (16:32)
[2019-05-10 17:03] VITALS: BP 152/78
== END 2019-05-10 17:09 | disposition home or self-care (01) ==
LOC: ER 11:39
DX: R30.0 Dysuria (principal); R35.0 Frequency of micturition; R41.0 Disorientation, unspecified; F17.210 Nicotine dependence, cigarettes, uncomplicated; Z93.2 Ileostomy status; Z90.49 Acquired absence of other specified parts of digestive tract; Z90.710 Acquired absence of both cervix and uterus; Z86.14 Personal history of Methicillin resistant Staphylococcus aureus infection; Z88.6 Allergy status to analgesic agent
CPT/HCPCS: 93005; 99284; 96360; 36415; 87086; 85025; 80053; 81001; 71046; 70450; 93010; J7030; A9270; J1642

== ENCOUNTER 2019-06-29 07:18 | Inpatient (IN) | payer MEDICARE, MEDICAID ==
--- NOTE | 2019-06-29 07:44 | ER Document Report ---
ED General - General Chief Complaint: Abdominal Pain Stated Complaint: ABDOMINAL PAIN Time Seen by Provider: 06/29/19 07:43 Primary Care Provider: ELEUTERIO LANG PA-C [Primary Care Provider] - Follow up as needed Mode of Arrival: Medic Information source: Patient TRAVEL OUTSIDE OF THE [place] IN LAST 30 DAYS: No - HPI Onset: Other - around 12 midnight Onset/Duration: Sudden Quality of pain: Sharp Severity: Severe Pain Level: 5 Associated symptoms: Nausea, Other - abdominal distension Exacerbated by: Other - unknown Relieved by: Denies Similar symptoms previously: No Recently seen / treated by doctor: No Notes: 69 year old female with a history of Crohn's s/p Total Colectomy and Ileostomy, GERD, COPD here in the ER for abdominal pain with nausea since midnight. The patient says the pain woke her from sleep. The patient has had several bowel obstructions in the past but she thinks this pain feels somewhat different since it is higher up. The patient denies fevers, chills, sweats, vomiting but she endorses decreased ostomy output. - Related Data Allergies/Adverse Reactions: codeine Allergy (Verified 05/10/19 12:06) naproxen Allergy (Verified 05/10/19 12:06) pregabalin [From Lyrica] Allergy (Verified 05/10/19 12:06) Past Medical History - General Information source: Patient - Social History Smoking Status: Current Every Day Smoker Frequency of alcohol use: Occasional Drug Abuse: None Family History: Reviewed & Not Pertinent Pulmonary Medical History: Reports: Hx COPD Neurological Medical History: Denies: Hx Seizures Renal/ Medical History: Denies: Hx Peritoneal Dialysis GI Medical History: Reports: Hx Crohn's Disease, Hx Gastroesophageal Reflux Disease, Hx Colonoscopy, Hx Endoscopy Musculoskeletal Medical History: Reports Hx Arthritis, Reports Hx Musculoskeletal Deformity Skin Medical History: Reports Hx MRSA Psychiatric Medical History: Reports: Hx Depression Past Surgical History: Reports: Hx Abdominal Surgery - ileostomy, Hx Bowel Diversion - Ileostomy, Hx Bowel Surgery, Hx Cholecystectomy, Hx Colostomy, Hx Hysterectomy, Hx Orthopedic Surgery - feet, Hx Rectal Surgery - removed, Other - Total colectomy - Immunizations Hx Diphtheria, Pertussis, Tetanus Vaccination: No Hx Pneumococcal Vaccination: 12/23/15 Review of Systems - Review of Systems Constitutional: No symptoms reported EENT: No symptoms reported Cardiovascular: No symptoms reported Respiratory: No symptoms reported Gastrointestinal: Abdomen distended, Abdominal pain, Nausea Genitourinary: No symptoms reported Female Genitourinary: No symptoms reported Musculoskeletal: No symptoms reported Skin: No symptoms reported Hematologic/Lymphatic: No symptoms reported Neurological/Psychological: No symptoms reported -: Yes All other systems reviewed and negative Physical Exam - Vital signs Vitals: Resp Pulse Ox 11 L 100 06/29/19 07:20 06/29/19 07:20 - Notes Notes: GENERAL: Well-appearing, well-nourished and in no acute distress. HEAD: Atraumatic, normocephalic. EYES: Pupils equal round and reactive to light, extraocular movements intact, sclera anicteric, conjunctiva are normal. ENT: External Ears normal in appearance, nares patent, oropharynx clear without exudates. Moist mucous membranes. NECK: Normal range of motion, supple without lymphadenopathy or JVD. LUNGS: Breath sounds clear to auscultation bilaterally and equal. No wheezes rales or rhonchi. HEART: Regular rate and rhythm without murmurs, rubs or gallops. ABDOMEN: Soft, moderately tender in epigastric area, normoactive bowel sounds. Mild guarding, no rebound. Ileostomy present. No masses appreciated. EXTREMITIES: Normal range of motion, no pitting or edema. No clubbing or cyanosis. NEUROLOGICAL: Cranial nerves II through XII grossly intact. Normal speech, normal gait. PSYCH: Normal mood, normal affect. SKIN: Warm, Dry, normal turgor, no rashes or lesions noted. Course - Re-evaluation Re-evalutation: 06/29/19 10:58 The patient is here for epigastric abdominal pain. She has a history of pancreatitis and SBOs so a CT scan with oral and IV contrast was performed. CT and labs consistent with pancreatitis and not an SBO. Patient requested to be admitted since she didnt feel she could control her pain well at home. Patient there admitted for OBs. Patient given fluids, Zofran, Morphine, Dilaudid in the ER. - Vital Signs Vital signs: Temp Pulse Resp BP Pulse Ox 97.7 F 21 H 105/54 L 100 06/29/19 07:56 06/29/19 10:48 06/29/19 10:48 06/29/19 10:48 - Laboratory Result Diagrams: 06/29/19 07:37 06/29/19 07:37 Laboratory results interpreted by me: 06/29/19 06/29/19 07:37 07:37 WBC 13.1 H RBC 3.30 L Hgb 10.6 L Hct 31.4 L RDW 15.3 H Lymph % (Auto) 10.2 L Absolute Neuts (auto) 11.1 H Seg Neutrophils % 84.6 H Chloride 115 H Carbon Dioxide 18 L Est GFR (MDRD) Non-Af 58 L Total Protein 5.4 L Albumin 3.0 L Lipase 2712.9 H - Diagnostic Test Radiology reviewed: Image reviewed, Reports reviewed - EKG Interpretation by Me EKG shows normal: Sinus rhythm, [place], Intervals, QRS Complexes, ST-T Waves Rate: Bradycardia Rhythm: NSR Discharge - Discharge Clinical Impression: Pancreatitis Qualifiers: Chronicity: acute Pancreatitis type: other Acute pancreatitis complication: unspecified Qualified Code(s): K85.80 - Other acute pancreatitis without necrosis or infection Abdominal pain Qualifiers: Abdominal location: epigastric Qualified Code(s): R10.13 - Epigastric pain Condition: Stable Disposition: ADMITTED OBSERVATION Admitting Provider: Kemi (Hospitalist) Unit Admitted: Medical Floor Referrals: ELEUTERIO LANG PA-C [Primary Care Provider] - Follow up as needed
[2019-06-29] MEDS ORDERED: MORPHINE SULFATE 10 MG/ML INJ IV ONE ×2 (07:52→14:10)
[2019-06-29] MEDS ORDERED: ONDANSETRON HCL INJ/PF 4 MG/2 ML SDV IV ONE (07:53)
[2019-06-29 08:03] LABS: ABSOLUTE EOSINOPHILS # (AUTO) 0.2 10^3/uL (0.0-0.6); ABSOLUTE LYMPHOCYTES (AUTO) 1.3 10^3/uL (0.5-4.7); ABSOLUTE MONOCYTES (AUTO) 0.4 10^3/uL (0.1-1.4); ABSOLUTE NEUT (AUTO) 11.1 10^3/uL (1.7-8.2); BASOPHILS % (AUTO) 0.4 % (0-2); EOSINOPHILS % (AUTO) 1.6 % (0-6); HEMATOCRIT 31.4 % (36.0-47.0); HEMOGLOBIN 10.6 g/dL (12.0-15.5); LYMPHOCYTES % (AUTO) 10.2 % (13-45); MEAN CORPUSCULAR HGB CONC 33.6 g/dL (32.0-36.0); MEAN CORPUSCULAR VOLUME 95 fl (80-97); MONOCYTES % (AUTO) 3.2 % (3-13); PLATELET COUNT 201 10^3/uL (150-450); RED CELL DISTRIBUTION WIDTH 15.3 % (11.5-14.0); SEGMENTED NEUTROPHILS % (AUTO) 84.6 % (42-78); TOTAL CELLS COUNTED % (AUTO) 100 %; WHITE BLOOD COUNT 13.1 10^3/uL (4.0-10.5)
[2019-06-29 08:23] LABS: ALKALINE PHOSPHATASE 73 U/L (38-126); ANION GAP 5 (5-19); ASPARTATE AMINO TRANSFERASE 17 U/L (14-36); BILIRUBIN,TOTAL 0.2 mg/dL (0.2-1.3); BLOOD UREA NITROGEN 20 mg/dL (7-20); CALCIUM 8.6 mg/dL (8.4-10.2); CARBON DIOXIDE 18 mmol/L (22-30); CHLORIDE 115 mmol/L (98-107); GLUCOSE 106 mg/dL (75-110); POTASSIUM 3.7 mmol/L (3.6-5.0); TOTAL PROTEIN 5.4 g/dL (6.3-8.2)
--- NOTE | 2019-06-29 08:48 | EKG REPORT ---
SEVERITY:- BORDERLINE ECG - SINUS BRADYCARDIA : Confirmed by: Doni Giang MD 29-Jun-2019 08:47:55
[2019-06-29] MEDS ORDERED: NORMAL SALINE 1000 ML 1,000 ML IV ONE (09:27)
[2019-06-29] MEDS ORDERED: HYDROMORPHONE HCL INJ/PF 2 MG/ML AMPULE IV ONE (09:33)
--- NOTE | 2019-06-29 10:41 | RADIOLOGY REPORT (SQ) ---
EXAM DESCRIPTION: CT ABD/PELVIS WITH IV ORAL IMAGES COMPLETED DATE/TIME: 06/29/2019 10:28 am REASON FOR STUDY: eval for SBO COMPARISON: 2018 TECHNIQUE: CT scan of the abdomen and pelvis performed using helical scanning technique with dynamic intravenous contrast injection. No oral contrast. Images reviewed with lung, soft tissue, and bone windows. Reconstructed coronal and sagittal MPR images reviewed. Delayed images for evaluation of the urinary system also acquired. All images stored on PACS. All CT scanners at this facility use dose modulation, iterative reconstruction, and/or weight based d osing when appropriate to reduce radiation dose to as low as reasonably achievable (ALARA). [facility]: Dose Right [facility]: CareDose [facility]: Dose Right [facility]: Teradose 4D [facility]: PAX Streamline CONTRAST TYPE AND DOSE: contrast/concentration: Isovue 350.00 mg/ml; Total Contrast Delivered: 50.0 ml; Total Saline Delivered: 62.0 ml RENAL FUNCTION: GFR > 60. RADIATION DOSE: CT Rad equipment meets quality standard of care and radiation dose reduction techniq ues were employed. CTDIvol: 4.8 - 5.0 mGy. DLP: 453 mGy-cm.. LIMITATIONS: None. FINDINGS: LOWER CHEST: No significant findings. No nodules or infiltrates. LIVER: No liver lesions. Trace fluid along the liver tip inferiorly. SPLEEN: Trace perisplenic fluid. Spleen otherwise normal. PANCREAS: No gross pancreatic mass or evidence of necrosis. Mild peripancreatic fat stranding and lang ggested minimal edema. This is chronic or recurrent lobe looks improved compared to 2018. No pancre atic duct dilatation. GALLBLADDER: Surgically absent. ADRENAL GLANDS: No significant masses or asymmetry. RIGHT KIDNEY AND URETER: No solid masses. No significant calcification. No hydronephrosis or hydroure ter. LEFT KIDNEY AND URETER: No solid masses. No significant calcification. No hydronephrosis or hydrouret er. AORTA AND VESSELS: No aneurysm. No dissection. Renal arteries, SMA, celiac without stenosis. No veno us clot. RETROPERITONEUM: No retroperitoneal adenopathy, hemorrhage or masses. BOWEL AND PERITONEAL CAVITY: Chronic changes, prior colectomy. Left lower quadrant ileostomy. No ev idence of bowel obstruction or abnormal gas. APPENDIX: Surgically absent. PELVIS: No mass or fluid. Bladder normal. ABDOMINAL WALL: No masses. No hernias. BONES: No significant or acute findings. OTHER: No other significant finding. IMPRESSION: 1. Findings suggestive of mild pancreatitis chronic or recurrent, as above. No drainable collections . No evidence of pancreatic necrosis or mass. Clear lung bases. 2. Previous colectomy, postoperative changes as above. TECHNICAL DOCUMENTATION: JOB ID: [id number] Quality ID # [id number]: Final reports with documentation of one or more dose reduction techniques (e.g., Au tomated exposure control, adjustment of the mA and/or kV according to patient size, use of iterative reconstruction technique) 2010 [employer]- All Rights Reserved Reading location - IP/workstation name: [email or web address]
[2019-06-29 11:01] LABS: APPEARANCE,URINE CLEAR; BILIRUBIN,URINE NEGATIVE (NEGATIVE); COLOR,URINE YELLOW; GLUCOSE, URINE NEGATIVE (NEGATIVE); KETONES,URINE NEGATIVE (NEGATIVE); LEUKOCYTE ESTERASE,URINE MODERATE (NEGATIVE); NITRITE,URINE NEGATIVE (NEGATIVE); PROTEIN,URINE 30 mg/dL (NEGATIVE); URINE SPECIFIC GRAVITY 1.028; UROBILINOGEN,URINE NEGATIVE mg/dL (<2.0)
[2019-06-29] MEDS ORDERED: DEXTROSE 40% GEL 15 GM TUBE PO PRN ×2 (14:14)
[2019-06-29] MEDS ORDERED: GLUCAGON,HUMAN RECOMB 1 MG INJ SUBCUT PRN (14:14)
[2019-06-29] MEDS ORDERED: ACETAMINOPHEN 650 MG SUPP.RECT PR PRN (14:14)
[2019-06-29] MEDS ORDERED: DEXTROSE 50%-WATER 25 GM/50 ML DISP.SYRIN IV PRN ×2 (14:14)
--- NOTE | 2019-06-29 14:22 | PDOC H&P ---
History of Present Illness Admission Date/PCP: 06/29/19 11:43 ELEUTERIO LANG PA-C Patient complains of: Patient presents with acute abdominal pain and distention History of Present Illness: DONALD ALBRIGHT is a 69 year old female with an unfortunate history of complicated Crohn's disease including a total colectomy and ileostomy. She has chronic abdominal pain. She also has a history of depression on multiple medications and chronic obstructive pulmonary disease. She was last hospitalized in October 2018. She states that at midnight last night she began having severe abdominal pain. She tried to avoid hospitalization but at 7:00 this morning the pain was too severe. She denied fever and chills but she did have nausea. She noted that her ostomy output had increased in volume and had turned a green color as opposed to its normal brown color. Because of the abdominal pain she was feeling short of breath. Upon evaluation in the emergency room the lipase was found to be greater than 2000. She had a slightly elevated white blood cell count. She states that her intake has been quite poor. Because of the acute pancreatitis and comorbidities she was referred to the hospital service for admission. Past Medical History Pulmonary Medical History: Reports: Chronic Obstructive Pulmonary Disease (COPD) EENT Medical History: Denies: Ears, Nose, Throat Neurological Medical History: Denies: Ischemic CVA, Seizures Endocrine Medical History: Denies: Diabetes Mellitus Type 2 Renal/ Medical History: Denies: Chronic Kidney Disease Malignancy Medical History: Reports: None GI Medical History: Reports: Crohn's Disease, Gastroesophageal Reflux Disease Musculoskeltal Medical History: Reports: Arthritis Skin Medical History: Denies: Eczema, Psoriasis Psychiatric Medical History: Reports: Depression, Tobacco Dependency Hematology: Reports: Anemia Infectious Medical History: Reports: None Past Surgical History Past Surgical History: Reports: Cholecystectomy, Hysterectomy, Ileostomy, O rthopedic Surgery - feet, Other - Total colectomy Social History Information Source: Patient, [facility] Records Lives with: Alone Smoking Status: Current Every Day Smoker Electronic Cigarette use?: No Frequency of Alcohol Use: Rare Hx Recreational Drug Use: No Drugs: None Hx Prescription Drug Abuse: No - Advance Directive Resuscitation Status: Do Not Intubate Surrogate healthcare decision maker:: Her child would be the decision maker Family History Family History: Reviewed & Not Pertinent, Malignancy Parental Family History Reviewed: Yes - Father had leukemia Children Family History Reviewed: Yes Sibling(s) Family History Reviewed.: Yes - Brother with Alzheimer's Medication/Allergy Home Medications: Albuterol Sulfate [Proair HFA Inhalation Aerosol 8.5 gm MDI] 2 puff IH Q6HP PRN 10/23/18 Buspirone HCl [Buspar 15 mg Tablet] 30 mg PO Q12 10/23/18 Cetirizine HCl [Zyrtec 10 mg Tablet] 10 mg PO DAILY 10/23/18 Cyanocobalamin (Vitamin B-12) [Vitamin B-12 1000 mcg Tablet] 1,000 mcg PO DAILY 10/23/18 Dicyclomine HCl [Bentyl 20 mg Tablet] 20 mg PO QIDP PRN 10/23/18 Ergocalciferol (Vitamin D2) [Drisdol 50,000 unit (1.25MG) Capsule] 50,000 unit PO TH@1000 10/23/18 Magnesium Oxide [Mag-Ox 400 mg Tablet] 400 mg PO DAILY 10/23/18 Omeprazole 40 mg PO QAM 10/23/18 Ondansetron HCl [Zofran 4 mg Tablet] 8 mg PO Q12HP PRN 10/23/18 Trazodone HCl [Desyrel 50 mg Tablet] 100 mg PO QHS 10/23/18 Gabapentin [Neurontin 300 mg Capsule] 600 mg PO Q8 #90 capsule 10/24/18 Acetaminophen [Acetaminophen Extra Strength] 1,000 mg PO Q4HP PRN 06/29/19 Diphenoxylate HCl/Atrop Sulf [Lomotil 2.5 mg Tablet] 1 tab PO QIDP PRN 06/29/19 Fluoxetine HCl [Prozac] 40 mg PO [id number] 06/29/19 Ibuprofen [Motrin 800 mg Tablet] 800 mg PO Q8HP PRN 06/29/19 Propranolol HCl [Inderal 10 mg Tablet] 10 mg PO BIDP PRN 06/29/19 Pyridoxine HCl (Vitamin B6) [Vitamin B-6] 100 mg PO DAILY 06/29/19 Ropinirole HCl 1 mg PO QPMP PRN 06/29/19 Suvorexant [Belsomra] 15 mg PO HSP PRN 06/29/19 Allergies/Adverse Reactions: codeine Allergy (Verified 05/10/19 12:06) naproxen Allergy (Verified 05/10/19 12:06) pregabalin [From Lyrica] Allergy (Verified 05/10/19 12:06) Review of Systems All systems: reviewed and no additional remarkable complaints except as stated Constitutional: PRESENT: fatigue, weakness Respiratory: PRESENT: dyspnea Gastrointestinal: PRESENT: abdominal pain, nausea Psychiatric: PRESENT: anxiety, depression Allergic/Immunologic: PRESENT: seasonal rhinorrhea Physical Exam Vital Signs: Temp Pulse Resp BP Pulse Ox 98.2 F 58 L 20 120/52 L 100 06/29/19 13:36 06/29/19 13:36 06/29/19 13:36 06/29/19 13:36 06/29/19 13:48 Intake & Output 06/28/19 06/29/19 06/30/19 06:59 06:59 06:59 Intake Total 1000 Output Total 800 Balance 200 Weight 55.2 kg General appearance: PRESENT: cooperative, mild distress, well-developed - But frail-appearing 69-year-old female Head exam: PRESENT: atraumatic, normocephalic Eye exam: PRESENT: conjunctiva pink, EOMI. ABSENT: scleral icterus Ear exam: PRESENT: normal external ear exam. ABSENT: bleeding, drainage Mouth exam: PRESENT: dry mucosa, tongue midline Teeth exam: ABSENT: dental tenderness, edentulous Neck exam: PRESENT: full ROM. ABSENT: carotid bruit, JVD, lymphadenopathy Respiratory exam: PRESENT: clear to auscultation heydi, symmetrical, unlabored. ABSENT: accessory muscle use, decreased breath sounds, prolonged expiratory phas, rales, rhonchi, tachypnea, wheezes Cardiovascular exam: PRESENT: RRR, +S1, +S2. ABSENT: diastolic murmur, irregular rhythm, systolic murmur GI/Abdominal exam: PRESENT: distended, hypoactive bowel sounds, soft, tenderness. ABSENT: guarding Gentrourinary exam: ABSENT: indwelling catheter Extremities exam: ABSENT: joint swelling, pedal edema Musculoskeletal exam: PRESENT: normal inspection. ABSENT: deformity Neurological exam: PRESENT: alert, awake, oriented to person, oriented to place, oriented to time, oriented to situation, CN II-XII grossly intact. ABSENT: altered, motor sensory deficit Psychiatric exam: PRESENT: anxious, appropriate affect - Affect reflects her discomfort. ABSENT: agitated Focused psych exam: ABSENT: delusional, paranoid, restlessness Skin exam: PRESENT: dry, pallor, warm Results Laboratory Results: 06/29/19 07:37 06/29/19 07:37 06/29/19 06/29/19 06/29/19 07:37 07:37 10:40 WBC 13.1 H RBC 3.30 L Hgb 10.6 L Hct 31.4 L MCV 95 MCH 32.0 MCHC 33.6 RDW 15.3 H Plt Count 201 Seg Neutrophils % 84.6 H Sodium 137.9 Potassium 3.7 Chloride 115 H Carbon Dioxide 18 L Anion Gap 5 BUN 20 Creatinine 0.96 Est GFR ( Amer) > 60 Glucose 106 Calcium 8.6 Total Bilirubin 0.2 AST 17 Alkaline Phosphatase 73 Total Protein 5.4 L Albumin 3.0 L Lipase 2712.9 H Urine Color YELLOW Urine Appearance CLEAR Urine pH 6.0 Ur Specific [place] 1.028 Urine Protein 30 H Urine Glucose (UA) NEGATIVE Urine Ketones NEGATIVE Urine Blood NEGATIVE Urine Nitrite NEGATIVE Ur Leukocyte Esterase MODERATE H Urine WBC (Auto) 28 Urine RBC (Auto) 1 Impressions: Abdomen/Pelvis CT 06/29/19 00:00 IMPRESSION: 1. Findings suggestive of mild pancreatitis chronic or recurrent, as above. No drainable collections. No evidence of pancreatic necrosis or mass. Clear lung bases. 2. Previous colectomy, postoperative changes as above. Assessment and Plan - Diagnosis (1) Acute pancreatitis Qualifiers: Pancreatitis type: unspecified pancreatitis type Acute pancreatitis complication: no infection or necrosis Qualified Code(s): K85.90 - Acute pancreatitis without necrosis or infection, unspecified Is this a current diagnosis for this admission?: Yes Plan: 06/29/2019 The patient does get recurrent pancreatitis. She states that she rarely takes alcohol. It was her birthday yesterday and she had 1 glass of wine. If this is true I do not believe this is alcohol related. The patient will be allowed to have ice chips and medications with sips of water. We will give ongoing intravenous fluid. She will have analgesia available. Check laboratory studies tomorrow. We will continue to monitor intake and output especially for ileostomy and urine production. (2) Chronic abdominal pain Is this a current diagnosis for this admission?: Yes Plan: 06/29/2019 The patient is on several pain medications. We will have IV morphine available for the patient. We will continue the gabapentin as well. (3) Leukocytosis Qualifiers: Leukocytosis type: unspecified Qualified Code(s): D72.829 - Elevated white blood cell count, unspecified Is this a current diagnosis for this admission?: Yes Plan: 06/29/2019 Elevated white blood cell count with predominant leukocytosis. Likely due from the stress of the pancreatitis. We will monitor by way of CBCs. (4) COPD (chronic obstructive pulmonary disease) Qualifiers: COPD type: unspecified COPD Qualified Code(s): J44.9 - Chronic obstructive pulmonary disease, unspecified Is this a current diagnosis for this admission?: Yes Plan: 06/29/2019 The patient uses only on albuterol inhaler at home. She is not on any combination inhaler therapy. Unfortunately she does continue to have the occasional cigarette. When she has difficulty breathing (more due to the abdominal issues) she will stop for a while. I will continue the albuterol inhaler as needed. In addition she felt short of breath so she is on oxygen but I have asked that they keep her oxygen below 95% because of her underlying COPD and attempt to taper her back to room air. (5) Depression Qualifiers: Depression Type: major depressive disorder Major depression recurrence: recurrent Active/Remission status: currently active Major depression episode severity: moderate Qualified Code(s): F33.1 - Major depressive disorder, recurrent, moderate Is this a current diagnosis for this admission?: Yes Plan: 06/29/2019 The patient has significant anxiety and depression. This is not unreasonable considering her multiple surgeries and complications. We will continue her current antidepressant regimen. If needed we can have benzodiazepines available. We would need to be careful as benzodiazepines can have an adverse effect in older patients. (6) Restless leg syndrome Is this a current diagnosis for this admission?: Yes Plan: 06/29/2019 Continue ropinirole (7) Nicotine dependence, cigarettes, uncomplicated Is this a current diagnosis for this admission?: Yes Plan: 06/29/2019 The patient does not smoke every day per her reporting it. She states that she only has a cigarette on occasion. I will have a nicotine patch available. - Time Time Spent with patient: 35 or more minutes Smoking Cessation Education: 3 to 10 minutes Medications reviewed and adjusted accordingly: Yes Anticipated discharge: Home Within: within 48 hours
[2019-06-29] MEDS: NORMAL SALINE 1000 ML 1,000 ML IV PRN ×2 (14:46→21:03)
[2019-06-29] MEDS ORDERED: ROPINIROLE HCL 1 MG TABLET PO PRN (15:07)
[2019-06-29] MEDS ORDERED: DICYCLOMINE HCL 20 MG TABLET PO PRN (15:07)
[2019-06-29] MEDS ORDERED: NICOTINE 7 MG/24 HR PATCH.TD24 TD PRN (15:26)
--- NOTE | 2019-06-29 15:40 | ADVANCED CARE ---
- Diagnosis (1) Acute pancreatitis Diagnosis Current: Yes (2) Chronic abdominal pain Diagnosis Current: Yes (3) Leukocytosis Diagnosis Current: Yes (4) COPD (chronic obstructive pulmonary disease) Diagnosis Current: Yes (5) Depression Diagnosis Current: Yes (6) Restless leg syndrome Diagnosis Current: Yes (7) Nicotine dependence, cigarettes, uncomplicated Diagnosis Current: Yes (8) Crohns disease Diagnosis Current: Yes Attendance: The discussion was held at the bedside with the patient. Resuscitation Status: Do Not Intubate Discussion: When going through the options for resuscitation the patient quickly answered affirmative for the cardiac resuscitation but stated that she did not want to be on a breathing machine. I pointed out the living will document present in the admissions packet. I asked her to review the document and to possibly write down all of her specific wishes. Care Planning Goals: The patient did state that she would not want to be prolonged in a vegetative state. Hopefully she will consider completing the living well and provide more specificity to care if she experiences a catastrophic event. Document(s) Completed: No Time Spent: 18
[2019-06-29] MEDS: FLUOXETINE HCL 20 MG CAPSULE PO SCH (17:27)
[2019-06-29] MEDS: ACETAMINOPHEN 325 MG TABLET PO PRN (17:36)
[2019-06-29] MEDS ORDERED: ONDANSETRON HCL 8 MG TABLET PO PRN (18:00)
[2019-06-29] MEDS ORDERED: GABAPENTIN 300 MG CAPSULE PO ONE (18:00)
[2019-06-29] MEDS: MORPHINE SULFATE 10 MG/ML INJ IV PRN (19:00)
[2019-06-29] MEDS: BUSPIRONE HCL 10 MG TABLET PO SCH (21:40)
[2019-06-29] MEDS: TRAZODONE HCL 50 MG TABLET PO SCH (21:40)
[2019-06-29] MEDS: HEPARIN SOD (PORCINE) 5,000 UNIT/ML 1 ML VIAL SUBCUT SCH (21:41)
[2019-06-29] MEDS: GABAPENTIN 300 MG CAPSULE PO SCH (21:45)
[2019-06-30] MEDS: NORMAL SALINE 1000 ML 1,000 ML IV PRN ×4 (02:03→22:40)
[2019-06-30] MEDS: MORPHINE SULFATE 10 MG/ML INJ IV PRN ×5 (04:25→20:55)
[2019-06-30] MEDS: PANTOPRAZOLE SODIUM 40 MG TABLET.DR PO SCH (05:05)
[2019-06-30] MEDS: GABAPENTIN 300 MG CAPSULE PO SCH ×3 (05:05→21:00)
[2019-06-30] MEDS: BUSPIRONE HCL 10 MG TABLET PO SCH ×3 (05:05→21:00)
[2019-06-30] MEDS: DIPHENOXYLATE HCL/ATROP SULF 2.5-0.025 MG TABLET PO PRN ×3 (05:07→12:41)
[2019-06-30] MEDS: HEPARIN SOD (PORCINE) 5,000 UNIT/ML 1 ML VIAL SUBCUT SCH ×3 (05:10→22:09)
[2019-06-30] MEDS: FLUOXETINE HCL 20 MG CAPSULE PO SCH (11:26)
[2019-06-30] MEDS: ACETAMINOPHEN 325 MG TABLET PO PRN ×2 (11:26→19:28)
[2019-06-30] MEDS: ALBUTEROL SULFATE HFA (90 MCG/PUFF) 8 GM MDI IH PRN (11:33)
--- NOTE | 2019-06-30 11:53 | PDOC PROGRESS REPORT ---
Subjective Progress Note for:: 06/30/19 Subjective:: Patient is still complaining of abdominal pain. It was difficult to ascertain if she thought it was better or not. She reports that the ileostomy output is returning to normal color. She no longer reports any breathing difficulties. Reason For Visit: ACUTE PANCREATITIS,ABDOMINAL PAIN, DYSPNEA,DEPRESS Physical Exam Vital Signs: Temp Pulse Resp BP Pulse Ox 99.5 F 75 16 91/41 L 99 06/30/19 07:21 06/30/19 07:21 06/30/19 07:21 06/30/19 07:21 06/30/19 07:21 Intake & Output 06/29/19 06/30/19 07/01/19 06:59 06:59 06:59 Intake Total 2875 1000 Output Total 800 Balance 2075 1000 Weight 55.2 kg General appearance: PRESENT: cooperative, mild distress, well-developed Head exam: PRESENT: atraumatic, normocephalic Eye exam: PRESENT: conjunctiva pink. ABSENT: scleral icterus Mouth exam: PRESENT: moist, tongue midline Respiratory exam: PRESENT: rales - Faint rales at bases, symmetrical, unlabored. ABSENT: prolonged expiratory phas, rhonchi, tachypnea, wheezes Cardiovascular exam: PRESENT: RRR, +S1, +S2 GI/Abdominal exam: PRESENT: distended - Slightly distended, normal bowel sounds, soft, tenderness - Diffuse generalized tenderness, other - Ileostomy present. ABSENT: guarding Rectal exam: PRESENT: deferred Musculoskeletal exam: PRESENT: ambulatory, normal inspection Neurological exam: PRESENT: alert, awake, oriented to person, oriented to place, oriented to time, oriented to situation, CN II-XII grossly intact. ABSENT: altered, motor sensory deficit Psychiatric exam: PRESENT: anxious, unusual affect. ABSENT: agitated Focused psych exam: ABSENT: delusional, paranoid, restlessness Skin exam: PRESENT: dry, warm. ABSENT: rash Results Laboratory Results: 06/29/19 07:37 06/29/19 07:37 Impressions: Abdomen/Pelvis CT 06/29/19 00:00 IMPRESSION: 1. Findings suggestive of mild pancreatitis chronic or recurrent, as above. No drainable collections. No evidence of pancreatic necrosis or mass. Clear lung bases. 2. Previous colectomy, postoperative changes as above. Assessment and Plan - Diagnosis (1) Acute pancreatitis Qualifiers: Pancreatitis type: unspecified pancreatitis type Acute pancreatitis complication: no infection or necrosis Qualified Code(s): K85.90 - Acute pancreatitis without necrosis or infection, unspecified Is this a current diagnosis for this admission?: Yes Plan: 06/29/2019 The patient does get recurrent pancreatitis. She states that she rarely takes alcohol. It was her birthday yesterday and she had 1 glass of wine. If this is true I do not believe this is alcohol related. The patient will be allowed to have ice chips and medications with sips of water. We will give ongoing intravenous fluid. She will have analgesia available. Check laboratory studies tomorrow. We will continue to monitor intake and output especially for ileostomy and urine production. 06/30/2019 Lipase is down to 751. Ileostomy still has voluminous output. She still has abdominal pain but I believe she has a degree of chronic abdominal pain. I have ordered a clear liquid diet and if she tolerates this we can consider advancing her diet and letting her go home tomorrow. (2) Chronic abdominal pain Is this a current diagnosis for this admission?: Yes Plan: 06/29/2019 The patient is on several pain medications. We will have IV morphine available for the patient. We will continue the gabapentin as well. 06/30/2019 We will continue her current medication regimen. As noted above I believe she has a certain degree of chronic abdominal pain. Continue supportive care as well. (3) Leukocytosis Qualifiers: Leukocytosis type: unspecified Qualified Code(s): D72.829 - Elevated white blood cell count, unspecified Is this a current diagnosis for this admission?: Yes Plan: 06/29/2019 Elevated white blood cell count with predominant leukocytosis. Likely due from the stress of the pancreatitis. We will monitor by way of CBCs. 06/30/2019 White blood cell count has normalized. We will continue to monitor. (4) COPD (chronic obstructive pulmonary disease) Qualifiers: COPD type: unspecified COPD Qualified Code(s): J44.9 - Chronic obstructive pulmonary disease, unspecified Is this a current diagnosis for this admission?: Yes Plan: 06/29/2019 The patient uses only on albuterol inhaler at home. She is not on any combination inhaler therapy. Unfortunately she does continue to have the occasional cigarette. When she has difficulty breathing (more due to the abdominal issues) she will stop for a while. I will continue the albuterol inhaler as needed. In addition she felt short of breath so she is on oxygen but I have asked that they keep her oxygen below 95% because of her underlying COPD and attempt to taper her back to room air. 06/30/2019 Her breathing appears comfortable. She does have the albuterol inhaler available. She is still on 1 L nasal cannula. I will add an incentive spirometer to help prevent any atelectasis. (5) Depression Qualifiers: Depression Type: major depressive disorder Major depression recurrence: recurrent Active/Remission status: currently active Major depression episode severity: moderate Qualified Code(s): F33.1 - Major depressive disorder, recurrent, moderate Is this a current diagnosis for this admission?: Yes Plan: 06/29/2019 The patient has significant anxiety and depression. This is not unreasonable considering her multiple surgeries and complications. We will continue her current antidepressant regimen. If needed we can have benzodiazepines available. We would need to be careful as benzodiazepines can have an adverse effect in older patients. 06/30/2019 Still with flat affect. Continue current antidepressant regimen. With her medical history and current state depression is not unreasonable. (6) Restless leg syndrome Is this a current diagnosis for this admission?: Yes Plan: 06/29/2019 Continue ropinirole (7) Nicotine dependence, cigarettes, uncomplicated Is this a current diagnosis for this admission?: Yes Plan: 06/29/2019 The patient does not smoke every day per her reporting it. She states that she only has a cigarette on occasion. I will have a nicotine patch available. (8) Crohns disease Qualifiers: Gastrointestinal tract location: large intestine Digestive disease complication type: unspecified complication Qualified Code(s): K50.119 - Crohn's disease of large intestine with unspecified complications Is this a current diagnosis for this admission?: Yes Plan: 06/30/2019 Because of her Crohn's disease she necessitated colectomy with ileostomy. Continue routine ileostomy care. (9) Hypokalemia Is this a current diagnosis for this admission?: Yes Plan: 06/30/2019 Likely related to ileostomy output and IV fluids. I will supplement with IV potassium as I want to see how she tolerates clear liquids first. Repeat chemistries tomorrow. (10) High output ileostomy Is this a current diagnosis for this admission?: Yes Plan: 06/30/2019 The hypokalemia does make sense with increased ileostomy output. It is listed as 650 mL out yesterday. Net fluid balance is difficult to assess since she had 2 unmeasured voids as well. She has had 150 mg out already today. We will continue to monitor. - Time Time Spent with patient: 15-24 minutes Medications reviewed and adjusted accordingly: Yes Anticipated discharge: Home Within: within 48 hours
[2019-06-30 12:58] LABS: ABSOLUTE EOSINOPHILS # (AUTO) 0.1 10^3/uL (0.0-0.6); ABSOLUTE LYMPHOCYTES (AUTO) 0.7 10^3/uL (0.5-4.7); ABSOLUTE MONOCYTES (AUTO) 0.4 10^3/uL (0.1-1.4); ABSOLUTE NEUT (AUTO) 7.5 10^3/uL (1.7-8.2); BASOPHILS % (AUTO) 0.3 % (0-2); EOSINOPHILS % (AUTO) 0.8 % (0-6); HEMATOCRIT 24.7 % (36.0-47.0); LYMPHOCYTES % (AUTO) 7.8 % (13-45); MEAN CORPUSCULAR HEMOGLOBIN 32.8 pg (27.0-33.4); MEAN CORPUSCULAR HGB CONC 34.2 g/dL (32.0-36.0); MEAN CORPUSCULAR VOLUME 96 fl (80-97); MONOCYTES % (AUTO) 4.2 % (3-13); PLATELET COUNT 121 10^3/uL (150-450); RED BLOOD COUNT 2.58 10^6/uL (3.72-5.28); RED CELL DISTRIBUTION WIDTH 15.3 % (11.5-14.0); SEGMENTED NEUTROPHILS % (AUTO) 86.9 % (42-78); TOTAL CELLS COUNTED % (AUTO) 100 %; WHITE BLOOD COUNT 8.7 10^3/uL (4.0-10.5)
[2019-06-30 12:59] LABS: HEMOGLOBIN 8.4 g/dL (12.0-15.5)
[2019-06-30 13:12] LABS: ALBUMIN 2.2 g/dL (3.5-5.0); ALKALINE PHOSPHATASE 49 U/L (38-126); ASPARTATE AMINO TRANSFERASE 13 U/L (14-36); BILIRUBIN,TOTAL 0.5 mg/dL (0.2-1.3); BLOOD UREA NITROGEN 13 mg/dL (7-20); CALCIUM 7.4 mg/dL (8.4-10.2); CARBON DIOXIDE 18 mmol/L (22-30); CHLORIDE 115 mmol/L (98-107); GLUCOSE 95 mg/dL (75-110); TOTAL PROTEIN 4.6 g/dL (6.3-8.2)
[2019-06-30 13:16] LABS: ANION GAP 3 (5-19)
[2019-06-30] MEDS: POTASSI CL 20 MEQ/50 ML RIDER 20 MEQ/50 ML RTUPB IV SCH ×2 (15:03→16:23)
[2019-06-30] MEDS: TRAZODONE HCL 50 MG TABLET PO SCH (21:00)
[2019-07-01] MEDS: GABAPENTIN 300 MG CAPSULE PO SCH ×3 (05:26→21:34)
[2019-07-01] MEDS: BUSPIRONE HCL 10 MG TABLET PO SCH ×3 (05:27→21:34)
[2019-07-01] MEDS: HEPARIN SOD (PORCINE) 5,000 UNIT/ML 1 ML VIAL SUBCUT SCH ×3 (05:27→21:31)
[2019-07-01] MEDS: PANTOPRAZOLE SODIUM 40 MG TABLET.DR PO SCH (05:27)
[2019-07-01 05:58] LABS: HEMATOCRIT 23.4 % (36.0-47.0); HEMOGLOBIN 8.1 g/dL (12.0-15.5); MEAN CORPUSCULAR HEMOGLOBIN 32.5 pg (27.0-33.4); MEAN CORPUSCULAR HGB CONC 34.5 g/dL (32.0-36.0); MEAN CORPUSCULAR VOLUME 94 fl (80-97); PLATELET COUNT 135 10^3/uL (150-450); RED BLOOD COUNT 2.49 10^6/uL (3.72-5.28); WHITE BLOOD COUNT 9.5 10^3/uL (4.0-10.5)
[2019-07-01 06:07] LABS: ALBUMIN 2.1 g/dL (3.5-5.0); ALKALINE PHOSPHATASE 56 U/L (38-126); ASPARTATE AMINO TRANSFERASE 12 U/L (14-36); BILIRUBIN,TOTAL 0.3 mg/dL (0.2-1.3); BLOOD UREA NITROGEN 11 mg/dL (7-20); CALCIUM 7.5 mg/dL (8.4-10.2); GLUCOSE 96 mg/dL (75-110); POTASSIUM 3.4 mmol/L (3.6-5.0); TOTAL PROTEIN 4.4 g/dL (6.3-8.2)
[2019-07-01 06:12] LABS: CARBON DIOXIDE 18 mmol/L (22-30); CHLORIDE 115 mmol/L (98-107)
[2019-07-01 06:16] LABS: ANION GAP 3 (5-19)
[2019-07-01] MEDS: MAGNESIUM SULFATE 1 GM/D5W 100 ML IV SCH ×2 (06:45→09:31)
[2019-07-01] MEDS: MORPHINE SULFATE 10 MG/ML INJ IV PRN ×3 (06:56→20:34)
[2019-07-01] MEDS: NORMAL SALINE 1000 ML 1,000 ML IV PRN ×2 (09:31→18:31)
[2019-07-01] MEDS: FLUOXETINE HCL 20 MG CAPSULE PO SCH (09:31)
--- NOTE | 2019-07-01 11:53 | PDOC PROGRESS REPORT ---
Subjective Progress Note for:: 07/01/19 Subjective:: Patient is feeling better but still complaining of abdominal soreness. She also complains of shortness of breath but I think this is more due to positioning. She actually is requesting advanced diet. Reason For Visit: ACUTE PANCREATITIS,ABDOMINAL PAIN, DYSPNEA,DEPRESS Physical Exam Vital Signs: Temp Pulse Resp BP Pulse Ox 99.0 F 73 20 93/45 L 100 07/01/19 08:08 07/01/19 08:08 07/01/19 08:08 07/01/19 08:08 07/01/19 08:08 Intake & Output 06/30/19 07/01/19 07/02/19 06:59 06:59 06:59 Intake Total 5175 4753 558 Output Total 800 Balance 0785 4753 558 Weight 55.2 kg 60 kg General appearance: PRESENT: cooperative, mild distress, well-developed, well- nourished Head exam: PRESENT: atraumatic, normocephalic Eye exam: PRESENT: conjunctiva pale, EOMI. ABSENT: scleral icterus Ear exam: PRESENT: normal external ear exam. ABSENT: bleeding, drainage Mouth exam: PRESENT: moist. ABSENT: dry mucosa, laceration Neck exam: ABSENT: JVD, lymphadenopathy, thyromegaly Respiratory exam: PRESENT: clear to auscultation heydi, symmetrical, unlabored. ABSENT: accessory muscle use, prolonged expiratory phas, rales, rhonchi, tachypnea, wheezes Cardiovascular exam: PRESENT: RRR, +S1, +S2. ABSENT: diastolic murmur, irregular rhythm, systolic murmur GI/Abdominal exam: PRESENT: normal bowel sounds, soft, tenderness - Diffuse nonspecific tenderness mostly across the upper abdomen., other - Ileostomy in place. ABSENT: distended, guarding Rectal exam: PRESENT: deferred, other - Ileostomy in place Gentrourinary exam: ABSENT: indwelling catheter Extremities exam: ABSENT: joint swelling, pedal edema Musculoskeletal exam: PRESENT: normal inspection. ABSENT: deformity Neurological exam: PRESENT: alert, awake, oriented to person, oriented to place, oriented to time, oriented to situation, CN II-XII grossly intact. ABSENT: altered, motor sensory deficit Psychiatric exam: PRESENT: flat affect. ABSENT: agitated, anxious Focused psych exam: ABSENT: delusional, paranoid, restlessness Skin exam: PRESENT: dry, normal color, warm. ABSENT: rash Results Laboratory Results: 07/01/19 05:30 07/01/19 05:30 06/30/19 06/30/19 07/01/19 12:33 12:33 05:30 WBC 8.7 9.5 RBC 2.58 L 2.49 L Hgb 8.4 L D 8.1 L Hct 24.7 L 23.4 L MCV 96 94 MCH 32.8 32.5 MCHC 34.2 34.5 RDW 15.3 H 15.0 H Plt Count 121 L 135 L Seg Neutrophils % 86.9 H Sodium 136.2 L Potassium 3.0 L* Chloride 115 H Carbon Dioxide 18 L Anion Gap 3 L BUN 13 Creatinine 0.89 Est GFR ( Amer) > 60 Glucose 95 Calcium 7.4 L Magnesium Total Bilirubin 0.5 AST 13 L Alkaline Phosphatase 49 Total Protein 4.6 L Albumin 2.2 L Lipase 751.4 H 07/01/19 05:30 WBC RBC Hgb Hct MCV MCH MCHC RDW Plt Count Seg Neutrophils % Sodium 135.7 L Potassium 3.4 L Chloride 115 H Carbon Dioxide 18 L Anion Gap 3 L BUN 11 Creatinine 0.90 Est GFR ( Amer) > 60 Glucose 96 Calcium 7.5 L Magnesium 1.2 L* Total Bilirubin 0.3 AST 12 L Alkaline Phosphatase 56 Total Protein 4.4 L Albumin 2.1 L Lipase 166.9 Impressions: Abdomen/Pelvis CT 06/29/19 00:00 IMPRESSION: 1. Findings suggestive of mild pancreatitis chronic or recurrent, as above. No drainable collections. No evidence of pancreatic necrosis or mass. Clear lung bases. 2. Previous colectomy, postoperative changes as above. Assessment and Plan - Diagnosis (1) Acute pancreatitis Qualifiers: Pancreatitis type: unspecified pancreatitis type Acute pancreatitis complication: no infection or necrosis Qualified Code(s): K85.90 - Acute pancreatitis without necrosis or infection, unspecified Is this a current diagnosis for this admission?: Yes Plan: 06/29/2019 The patient does get recurrent pancreatitis. She states that she rarely takes alcohol. It was her birthday yesterday and she had 1 glass of wine. If this is true I do not believe this is alcohol related. The patient will be allowed to h ave ice chips and medications with sips of water. We will give ongoing intravenous fluid. She will have analgesia available. Check laboratory studies tomorrow. We will continue to monitor intake and output especially for ileostomy and urine production. 06/30/2019 Lipase is down to 751. Ileostomy still has voluminous output. She still has abdominal pain but I believe she has a degree of chronic abdominal pain. I have ordered a clear liquid diet and if she tolerates this we can consider advancing her diet and letting her go home tomorrow. 07/01/2019 Lipase is normal today. Patient is still having some discomfort but I advanced her diet. If she tolerates her diet then she should be able to discharge tomorrow. I did explain to her that she will likely have some discomfort for a while. (2) Chronic abdominal pain Is this a current diagnosis for this admission?: Yes Plan: 06/29/2019 The patient is on several pain medications. We will have IV morphine available for the patient. We will continue the gabapentin as well. 06/30/2019 We will continue her current medication regimen. As noted above I believe she has a certain degree of chronic abdominal pain. Continue supportive care as well. (3) Leukocytosis Qualifiers: Leukocytosis type: unspecified Qualified Code(s): D72.829 - Elevated white blood cell count, unspecified Is this a current diagnosis for this admission?: Yes Plan: 06/29/2019 Elevated white blood cell count with predominant leukocytosis. Likely due from the stress of the pancreatitis. We will monitor by way of CBCs. 06/30/2019 White blood cell count has normalized. We will continue to monitor. 07/01/2019 Recheck white blood cell count tomorrow. It has been normal. (4) COPD (chronic obstructive pulmonary disease) Qualifiers: COPD type: unspecified COPD Qualified Code(s): J44.9 - Chronic obstructive pulmonary disease, unspecified Is this a current diagnosis for this admission?: Yes Plan: 06/29/2019 The patient uses only on albuterol inhaler at home. She is not on any combination inhaler therapy. Unfortunately she does continue to have the occasional cigarette. When she has difficulty breathing (more due to the abdominal issues) she will stop for a while. I will continue the albuterol inhaler as needed. In addition she felt short of breath so she is on oxygen but I have asked that they keep her oxygen below 95% because of her underlying COPD and attempt to taper her back to room air. 06/30/2019 Her breathing appears comfortable. She does have the albuterol inhaler available. She is still on 1 L nasal cannula. I will add an incentive spirometer to help prevent any atelectasis. 07/01/2019 She complained of breathing issues again today. I did order a chest x-ray. It suggested bibasilar infiltrates however she is afebrile and has no elevated white blood cell count. I have ordered a scheduled Brio inhaler as this could be poorly controlled COPD. (5) Depression Qualifiers: Depression Type: major depressive disorder Major depression recurrence: recurrent Active/Remission status: currently active Major depression episode severity: moderate Qualified Code(s): F33.1 - Major depressive disorder, recurrent, moderate Is this a current diagnosis for this admission?: Yes Plan: 06/29/2019 The patient has significant anxiety and depression. This is not unreasonable considering her multiple surgeries and complications. We will continue her current antidepressant regimen. If needed we can have benzodiazepines available. We would need to be careful as benzodiazepines can have an adverse effect in older patients. 06/30/2019 Still with flat affect. Continue current antidepressant regimen. With her m edical history and current state depression is not unreasonable. (6) Restless leg syndrome Is this a current diagnosis for this admission?: Yes Plan: 06/29/2019 Continue ropinirole (7) Nicotine dependence, cigarettes, uncomplicated Is this a current diagnosis for this admission?: Yes Plan: 06/29/2019 The patient does not smoke every day per her reporting it. She states that she only has a cigarette on occasion. I will have a nicotine patch available. (8) Crohns disease Qualifiers: Gastrointestinal tract location: large intestine Digestive disease complication type: unspecified complication Qualified Code(s): K50.119 - Crohn's disease of large intestine with unspecified complications Is this a current diagnosis for this admission?: Yes Plan: 06/30/2019 Because of her Crohn's disease she necessitated colectomy with ileostomy. Continue routine ileostomy care. 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 (9) Hypokalemia Is this a current diagnosis for this admission?: Yes Plan: 06/30/2019 Likely related to ileostomy output and IV fluids. I will supplement with IV potassium as I want to see how she tolerates clear liquids first. Repeat chemistries tomorrow. 07/01/2019 Likely secondary to ileostomy output. Continue potassium supplementation. (10) Hypomagnesemia Is this a current diagnosis for this admission?: Yes Plan: 07/01/2019 Likely related to ileostomy output. Intravenous and now oral magnesium supplements started. (11) High output ileostomy Is this a current diagnosis for this admission?: Yes Plan: 06/30/2019 The hypokalemia does make sense with increased ileostomy output. It is listed as 650 mL out yesterday. Net fluid balance is difficult to assess since she had 2 unmeasured voids as well. She has had 150 mg out already today. We will cont inue to monitor. 07/01/2019 Unfortunately there is no specific documentation about the ileostomy output on the patient's intake and output chart. Hopefully they will document tomorrow. - Time Time Spent with patient: 15-24 minutes Medications reviewed and adjusted accordingly: Yes Anticipated discharge: Home Within: within 24 hours
[2019-07-01] MEDS: POTASSIUM CHLORIDE 10 MEQ TABLET.ER PO SCH (12:46)
[2019-07-01] MEDS: DIPHENOXYLATE HCL/ATROP SULF 2.5-0.025 MG TABLET PO PRN (12:59)
[2019-07-01] MEDS: ACETAMINOPHEN 325 MG TABLET PO PRN (12:59)
--- NOTE | 2019-07-01 15:17 | RADIOLOGY REPORT (SQ) ---
EXAM DESCRIPTION: CHEST SINGLE VIEW IMAGES COMPLETED DATE/TIME: 07/01/2019 2:42 pm REASON FOR STUDY: Difficulty breathing COMPARISON: None. EXAM PARAMETERS: NUMBER OF VIEWS: One view. TECHNIQUE: Single frontal radiographic view of the chest acquired. RADIATION DOSE: NA LIMITATIONS: None. FINDINGS: LUNGS AND PLEURA: Ill-defined bibasilar opacities, right greater than left. Blunting of t he bilateral costophrenic angles. No pneumothorax. MEDIASTINUM AND HILAR STRUCTURES: No masses. Contour normal. HEART AND VASCULAR STRUCTURES: Stable. BONES: No acute findings. HARDWARE: Right IJ based chest port with catheter tip at cavoatrial junction. OTHER: No other significant finding. IMPRESSION: Mild ill-defined bibasilar opacities suspicious for pneumonia, right greater than left. Trace bilateral effusions. TECHNICAL DOCUMENTATION: JOB ID: [id number] 2010 [employer]- All Rights Reserved Reading location - IP/workstation name: [email or web address]
[2019-07-01] MEDS: MAGNESIUM OXIDE 400 MG TABLET PO SCH (18:03)
[2019-07-01] MEDS: FLUTICASONE/VILANTEROL 100-25 MCG/DOSE IH SCH (21:31)
[2019-07-01] MEDS: TRAZODONE HCL 50 MG TABLET PO SCH (21:34)
[2019-07-02] MEDS: ALBUTEROL SULFATE HFA (90 MCG/PUFF) 8 GM MDI IH PRN ×2 (00:10→06:23)
[2019-07-02] MEDS: HEPARIN SOD (PORCINE) 5,000 UNIT/ML 1 ML VIAL SUBCUT SCH (06:04)
[2019-07-02] MEDS: ACETAMINOPHEN 325 MG TABLET PO PRN (06:11)
[2019-07-02] MEDS: GABAPENTIN 300 MG CAPSULE PO SCH (06:12)
[2019-07-02] MEDS: NORMAL SALINE 1000 ML 1,000 ML IV PRN (06:12)
[2019-07-02] MEDS: BUSPIRONE HCL 10 MG TABLET PO SCH (06:12)
[2019-07-02] MEDS: PANTOPRAZOLE SODIUM 40 MG TABLET.DR PO SCH (06:12)
[2019-07-02] MEDS: DIPHENOXYLATE HCL/ATROP SULF 2.5-0.025 MG TABLET PO PRN (06:17)
[2019-07-02 07:05] LABS: ABSOLUTE EOSINOPHILS # (AUTO) 0.1 10^3/uL (0.0-0.6); ABSOLUTE LYMPHOCYTES (AUTO) 0.5 10^3/uL (0.5-4.7); ABSOLUTE MONOCYTES (AUTO) 0.5 10^3/uL (0.1-1.4); ABSOLUTE NEUT (AUTO) 7.3 10^3/uL (1.7-8.2); BASOPHILS % (AUTO) 0.1 % (0-2); EOSINOPHILS % (AUTO) 1.1 % (0-6); HEMOGLOBIN 8.2 g/dL (12.0-15.5); LYMPHOCYTES % (AUTO) 6.5 % (13-45); MEAN CORPUSCULAR HEMOGLOBIN 32.7 pg (27.0-33.4); MEAN CORPUSCULAR HGB CONC 34.3 g/dL (32.0-36.0); MEAN CORPUSCULAR VOLUME 95 fl (80-97); MONOCYTES % (AUTO) 5.7 % (3-13); PLATELET COUNT 142 10^3/uL (150-450); RED BLOOD COUNT 2.52 10^6/uL (3.72-5.28); RED CELL DISTRIBUTION WIDTH 15.3 % (11.5-14.0); SEGMENTED NEUTROPHILS % (AUTO) 86.6 % (42-78); TOTAL CELLS COUNTED % (AUTO) 100 %; WHITE BLOOD COUNT 8.4 10^3/uL (4.0-10.5)
[2019-07-02 07:12] LABS: BLOOD UREA NITROGEN 9 mg/dL (7-20); CALCIUM 7.7 mg/dL (8.4-10.2); GLUCOSE 110 mg/dL (75-110); POTASSIUM 3.4 mmol/L (3.6-5.0)
[2019-07-02 07:17] LABS: ANION GAP 5 (5-19); CARBON DIOXIDE 18 mmol/L (22-30); CHLORIDE 115 mmol/L (98-107)
[2019-07-02] MEDS: MORPHINE SULFATE 10 MG/ML INJ IV PRN (07:51)
[2019-07-02] MEDS ORDERED: OXYCODONE-ACETAMINOPHEN 5-325 MG TABLET PO PRN ×2 (08:29)
[2019-07-02] MEDS: FLUTICASONE/VILANTEROL 100-25 MCG/DOSE IH SCH (10:14)
[2019-07-02] MEDS: MAGNESIUM OXIDE 400 MG TABLET PO SCH (10:14)
[2019-07-02] MEDS: FLUOXETINE HCL 20 MG CAPSULE PO SCH (10:14)
[2019-07-02] MEDS: POTASSIUM CHLORIDE 10 MEQ TABLET.ER PO SCH (10:14)
[2019-07-02 11:28] VITALS: BP 100/54
--- NOTE | 2019-07-02 17:30 | PDOC TRANSFER SUMMARY ---
Impression - Admit/DC Date/PCP Admission Date/Primary Care Provider: 06/29/19 11:43 ELEUTERIO LANG PA-C Discharge Date: 07/02/19 - Discharge Diagnosis (1) Acute pancreatitis Is this a current diagnosis for this admission?: Yes (2) COPD (chronic obstructive pulmonary disease) Is this a current diagnosis for this admission?: Yes (3) Chronic abdominal pain Is this a current diagnosis for this admission?: Yes (4) Crohns disease Is this a current diagnosis for this admission?: Yes (5) Depression Is this a current diagnosis for this admission?: Yes (6) High output ileostomy Is this a current diagnosis for this admission?: Yes (7) Hypokalemia Is this a current diagnosis for this admission?: Yes (8) Hypomagnesemia Is this a current diagnosis for this admission?: Yes (9) Leukocytosis Is this a current diagnosis for this admission?: Yes (10) Nicotine dependence, cigarettes, uncomplicated Is this a current diagnosis for this admission?: Yes (11) Restless leg syndrome Is this a current diagnosis for this admission?: Yes - Additional Information Resuscitation Status: Do Not Intubate Discharge Diet: As Tolerated, Regular Discharge Activity: Activity As Tolerated, Balance Activity w/Rest Referrals: ELEUTERIO LANG PA-C [Primary Care Provider] - 07/09/19 9:30 am () Prescriptions: Amoxicillin/Potassium Clav [Augmentin 875-125 Tablet] 1 tab PO BID #20 tab Fluticasone/Vilanterol [Breo 100-25 Mcg Ellipta 14 Dose/Dpi] 1 inh IH DAILY #1 inhaler Nicotine [Nicoderm 7 mg/24 Hr Transdermal Patch] 1 each TD DAILYP PRN #30 patch.td24 PRN Reason: Oxycodone HCl/Acetaminophen [Percocet 5-325 mg Tablet] 1 - 2 tab PO Q6HP PRN #24 tablet PRN Reason: Home Medications: Albuterol Sulfate [Proair HFA Inhalation Aerosol 8.5 gm MDI] 2 puff IH Q6HP PRN 10/23/18 Buspirone HCl [Buspar 15 mg Tablet] 30 mg PO Q12 10/23/18 Cetirizine HCl [Zyrtec 10 mg Tablet] 10 mg PO DAILY 10/23/18 Cyanocobalamin (Vitamin B-12) [Vitamin B-12 1000 mcg Tablet] 1,000 mcg PO DAILY 10/23/18 Dicyclomine HCl [Bentyl 20 mg Tablet] 20 mg PO QIDP PRN 10/23/18 Ergocalciferol (Vitamin D2) [Drisdol 50,000 unit (1.25MG) Capsule] 50,000 unit PO TH@1000 10/23/18 Magnesium Oxide [Mag-Ox 400 mg Tablet] 400 mg PO DAILY 10/23/18 Omeprazole 40 mg PO QAM 10/23/18 Ondansetron HCl [Zofran 4 mg Tablet] 8 mg PO Q12HP PRN 10/23/18 Trazodone HCl [Desyrel 50 mg Tablet] 100 mg PO QHS 10/23/18 Gabapentin [Neurontin 300 mg Capsule] 600 mg PO Q8 #90 capsule 10/24/18 Diphenoxylate HCl/Atrop Sulf [Lomotil 2.5 mg Tablet] 1 tab PO QIDP PRN 06/29/19 Fluoxetine HCl [Prozac] 40 mg PO [id number] 06/29/19 Ibuprofen [Motrin 800 mg Tablet] 800 mg PO Q8HP PRN 06/29/19 Propranolol HCl [Inderal 10 mg Tablet] 10 mg PO BIDP PRN 06/29/19 Pyridoxine HCl (Vitamin B6) [Vitamin B-6] 100 mg PO DAILY 06/29/19 Ropinirole HCl 1 mg PO QPMP PRN 06/29/19 Suvorexant [Belsomra] 15 mg PO HSP PRN 06/29/19 Acetaminophen [Tylenol 325 mg Tablet] 650 mg PO Q4HP PRN tablet 07/02/19 Amoxicillin/Potassium Clav [Augmentin 875-125 Tablet] 1 tab PO BID #20 tab 07/02/19 Fluticasone/Vilanterol [Breo 100-25 Mcg Ellipta 14 Dose/Dpi] 1 inh IH DAILY #1 inhaler 07/02/19 Nicotine [Nicoderm 7 mg/24 Hr Transdermal Patch] 1 each TD DAILYP PRN #30 patch.td24 07/02/19 Oxycodone HCl/Acetaminophen [Percocet 5-325 mg Tablet] 1 - 2 tab PO Q6HP PRN #24 tablet 07/02/19 History of Present Illiness History of Present Illness: Per H&P by Dr. Mcmullen: DONALD ALBRIGHT is a 69 year old female with an unfortunate history of complicated Crohn's disease including a total colectomy and ileostomy. She has chronic abdominal pain. She also has a history of depression on multiple medications and chronic obstructive pulmonary disease. She was last hospitalized in October 2018. She states that at midnight last night she began having severe abdominal pain. She tried to avoid hospitalization but at 7:00 this morning the pain was too severe. She denied fever and chills but she did have nausea. She noted that her ostomy output had increased in volume and had turned a green color as opposed to its normal brown color. Because of the abdominal pain she was feeling short of breath. Upon evaluation in the emergency room the lipase was found to be greater than 2000. She had a slightly elevated white blood cell count. She states that her intake has been quite poor. Because of the acute pancreatitis and comorbidities she was referred to the hospital service for admission. Hospital Course Hospital Course: The patient was admitted to the medical floor for acute pancreatitis. She was placed on n.p.o. status with the exception of ice chips and small sips of water. She was provided generous IV fluids, analgesia, and antiemetics as needed. As her symptoms improved, her diet was slowly advanced. Lipase continue to trend down and normalized on 07/01/2019. She does have an element of chronic abdominal discomfort, however, reports that the acute worsening has subsided significantly and is currently well controlled with oral analgesics. Electrolytes were monitored and replaced as necessary. The patient did develop a low-grade temperature of 100.4. Chest x-ray revealed atelectasis versus developing pneumonia. She has been afebrile >48 hours with normal WBCs and is maintaining oxygen saturations on room air. Lung sounds are clear at this time. She is discharged on p.o. Augmentin and advised to increase her position changing and ambulation. Remaining chronic medical conditions remained stable. The patient is discharged to home in stable condition. She has requested an increase in her home health nursing services; have asked discharge planning to make necessary arrangements if possible. Patient should follow-up with her primary care provider within 1 week. She is advised to take her medications as ordered. She is instructed to eat a bland diet and to avoid all alcohol, high fat/acidic/spicy foods, and to advance slowly as tolerated. She is further instructed to return to the emergency department as needed for concerning symptoms. Physical Exam Vital Signs: Temp Pulse Resp BP Pulse Ox 97.7 F 72 18 100/54 L 99 07/02/19 11:25 07/02/19 11:25 07/02/19 11:25 07/02/19 11:25 07/02/19 11:25 Intake & Output 07/01/19 07/02/19 07/03/19 06:59 06:59 06:59 Intake Total 4753 3638 Balance 4753 3638 Weight 60 kg 62.4 kg General appearance: PRESENT: no acute distress, cooperative, well-developed, well-nourished Head exam: PRESENT: atraumatic, normocephalic Eye exam: PRESENT: conjunctiva pink, EOMI, PERRLA. ABSENT: scleral icterus Mouth exam: PRESENT: moist, tongue midline Respiratory exam: PRESENT: clear to auscultation heydi, symmetrical, unlabored. ABSENT: rales, rhonchi, wheezes Cardiovascular exam: PRESENT: RRR, +S1, +S2. ABSENT: diastolic murmur, rubs, systolic murmur Pulses: PRESENT: normal dorsalis pedis pul Vascular exam: PRESENT: normal capillary refill GI/Abdominal exam: PRESENT: normal bowel sounds, soft, other - Ileostomy. ABSENT: distended, guarding, mass, organolmegaly, rebound, tenderness Rectal exam: PRESENT: deferred Extremities exam: PRESENT: full ROM. ABSENT: calf tenderness, clubbing, pedal edema Musculoskeletal exam: PRESENT: ambulatory Neurological exam: PRESENT: alert, awake, oriented to person, oriented to place, oriented to time, oriented to situation, CN II-XII grossly intact. ABSENT: motor sensory deficit Psychiatric exam: PRESENT: appropriate affect, normal mood. ABSENT: homicidal ideation, suicidal ideation Skin exam: PRESENT: dry, intact, warm. ABSENT: cyanosis, rash Results Laboratory Results: WBC 8.4 10^3/uL (4.0-10.5) 07/02/19 06:30 RBC 2.52 10^6/uL (3.72-5.28) L 07/02/19 06:30 Hgb 8.2 g/dL (12.0-15.5) L 07/02/19 06:30 Hct 24.0 % (36.0-47.0) L 07/02/19 06:30 MCV 95 fl (80-97) 07/02/19 06:30 MCH 32.7 pg (27.0-33.4) 07/02/19 06:30 MCHC 34.3 g/dL (32.0-36.0) 07/02/19 06:30 RDW 15.3 % (11.5-14.0) H 07/02/19 06:30 Plt Count 142 10^3/uL (150-450) L 07/02/19 06:30 Lymph % (Auto) 6.5 % (13-45) L 07/02/19 06:30 [place]rell % (Auto) 5.7 % (3-13) 07/02/19 06:30 Eos % (Auto) 1.1 % (0-6) 07/02/19 06:30 Baso % (Auto) 0.1 % (0-2) 07/02/19 06:30 Absolute Neuts (auto) 7.3 10^3/uL (1.7-8.2) 07/02/19 06:30 Absolute Lymphs (auto) 0.5 10^3/uL (0.5-4.7) 07/02/19 06:30 Absolute Monos (auto) 0.5 10^3/uL (0.1-1.4) 07/02/19 06:30 Absolute Eos (auto) 0.1 10^3/uL (0.0-0.6) 07/02/19 06:30 Absolute Basos (auto) 0.0 10^3/uL (0.0-0.2) 07/02/19 06:30 Seg Neutrophils % 86.6 % (42-78) H 07/02/19 06:30 Sodium 137.6 mmol/L (137-145) 07/02/19 06:30 Potassium 3.4 mmol/L (3.6-5.0) L 07/02/19 06:30 Chloride 115 mmol/L (98-107) H 07/02/19 06:30 Carbon Dioxide 18 mmol/L (22-30) L 07/02/19 06:30 Anion Gap 5 (5-19) 07/02/19 06:30 BUN 9 mg/dL (7-20) 07/02/19 06:30 Creatinine 0.92 mg/dL (0.52-1.25) 07/02/19 06:30 Est GFR ( Amer) > 60 (>60) 07/02/19 06:30 Est GFR (MDRD) Non-Af > 60 (>60) 07/02/19 06:30 Glucose 110 mg/dL (75-110) 07/02/19 06:30 Calcium 7.7 mg/dL (8.4-10.2) L 07/02/19 06:30 Magnesium 1.6 mg/dL (1.6-2.3) 07/02/19 06:30 Total Bilirubin 0.3 mg/dL (0.2-1.3) 07/01/19 05:30 Direct Bilirubin 0.0 mg/dL (0.0-0.4) 07/01/19 05:30 Neonat Total Bilirubin Not Reportable 07/01/19 05:30 Neonat Direct Bilirubin Not Reportable 07/01/19 05:30 Neonat Indirect Bili Not Reportable 07/01/19 05:30 AST 12 U/L (14-36) L 07/01/19 05:30 ALT 7 U/L (<35) 07/01/19 05:30 Alkaline Phosphatase 56 U/L (38-126) 07/01/19 05:30 Total Protein 4.4 g/dL (6.3-8.2) L 07/01/19 05:30 Albumin 2.1 g/dL (3.5-5.0) L 07/01/19 05:30 Lipase 166.9 U/L (23-300) 07/01/19 05:30 Urine Color YELLOW 06/29/19 10:40 Urine Appearance CLEAR 06/29/19 10:40 Urine pH 6.0 (5.0-9.0) 06/29/19 10:40 Ur Specific [place] 1.028 06/29/19 10:40 Urine Protein 30 mg/dL (NEGATIVE) H 06/29/19 10:40 Urine Glucose (UA) NEGATIVE mg/dL (NEGATIVE) 06/29/19 10:40 Urine Ketones NEGATIVE mg/dL (NEGATIVE) 06/29/19 10:40 Urine Blood NEGATIVE (NEGATIVE) 06/29/19 10:40 Urine Nitrite NEGATIVE (NEGATIVE) 06/29/19 10:40 Urine Bilirubin NEGATIVE (NEGATIVE) 06/29/19 10:40 Urine Urobilinogen NEGATIVE mg/dL (<2.0) 06/29/19 10:40 Ur Leukocyte Esterase MODERATE (NEGATIVE) H 06/29/19 10:40 Urine WBC (Auto) 28 /HPF 06/29/19 10:40 Urine RBC (Auto) 1 /HPF 06/29/19 10:40 Squamous Epi Cells Auto 1 /HPF 06/29/19 10:40 Urine Mucus (Auto) RARE /LPF 06/29/19 10:40 Urine Ascorbic Acid NEGATIVE (NEGATIVE) 06/29/19 10:40 Impressions: Abdomen/Pelvis CT 06/29/19 00:00 IMPRESSION: 1. Findings suggestive of mild pancreatitis chronic or recurrent, as above. No drainable collections. No evidence of pancreatic necrosis or mass. Clear lung bases. 2. Previous colectomy, postoperative changes as above. Chest X-Ray 07/01/19 00:00 IMPRESSION: Mild ill-defined bibasilar opacities suspicious for pneumonia, right greater than left. Trace bilateral effusions. Plan Plan of Treatment: Patient is discharged home in stable condition. She is advised to follow-up with primary care provider within 1 week. Complete course of antibiotics. Take medications as prescribed. Eat a heart healthy diet. Do NOT smoke. Return to emergency department as needed for concerning symptoms. Time Spent: Greater than 30 Minutes Stroke Is this a Stroke Patient?: No Acute Heart Failure - Is this a Heart Failure Patient?: No
== END 2019-07-02 12:20 | disposition home health service (06) | DRG 439 ==
LOC: ER 07:18 → OBSVTOIN 11:43 → EH 11:43 → 4S 13:30
PROVIDERS: ADMIT Hospitalist; ATTEND Registered Nurse
DX: K85.90 Acute pancreatitis without necrosis or infection, unspecified (principal); F33.1 Major depressive disorder, recurrent, moderate; K50.119 Crohn's disease of large intestine with unspecified complications; Z93.2 Ileostomy status; J44.9 Chronic obstructive pulmonary disease, unspecified; K21.9 Gastro-esophageal reflux disease without esophagitis; M19.90 Unspecified osteoarthritis, unspecified site; Z66 Do not resuscitate; E87.6 Hypokalemia; E83.42 Hypomagnesemia; D72.829 Elevated white blood cell count, unspecified; F41.9 Anxiety disorder, unspecified; G25.81 Restless legs syndrome; F17.210 Nicotine dependence, cigarettes, uncomplicated; Z90.49 Acquired absence of other specified parts of digestive tract; Z88.6 Allergy status to analgesic agent; Z88.8 Allergy status to other drugs, medicaments and biological substances; Z79.51 Long term (current) use of inhaled steroids; Z90.710 Acquired absence of both cervix and uterus; Z86.14 Personal history of Methicillin resistant Staphylococcus aureus infection
CPT/HCPCS: 36415; 36591; 71045; 74177; 80048; 80053; 81001; 83690; 83735; 85025; 85027; 93005; 93010; 94799; 96361; 96374; 96375; 99285; J1170; J1644; J2270; J2405; J3475; J3480; J3490; J7030

== ENCOUNTER 2019-07-04 18:07 | Inpatient (IN) | payer MEDICARE, MEDICAID ==
[2019-07-04] MEDS ORDERED: ACETAMINOPHEN 325 MG TABLET PO ONE (18:22)
[2019-07-04] MEDS ORDERED: NORMAL SALINE 1000 ML 1,000 ML IV ONE (18:26)
[2019-07-04 20:27] LABS: HEMOGLOBIN 8.5 g/dL (12.0-15.5); MEAN CORPUSCULAR HEMOGLOBIN 32.5 pg (27.0-33.4); MEAN CORPUSCULAR HGB CONC 33.9 g/dL (32.0-36.0); MEAN CORPUSCULAR VOLUME 96 fl (80-97); PLATELET COUNT 191 10^3/uL (150-450); RED BLOOD COUNT 2.61 10^6/uL (3.72-5.28); RED CELL DISTRIBUTION WIDTH 15.9 % (11.5-14.0); WHITE BLOOD COUNT 15.5 10^3/uL (4.0-10.5)
[2019-07-04 20:28] LABS: VENOUS BLOOD BASE EXCESS -8.8 mmol/L; VENOUS BLOOD HCO3 18.1 mmol/L (20-32); VENOUS BLOOD PCO2 42.5 mmHg (35-63); VENOUS BLOOD PH 7.25 (7.30-7.42)
[2019-07-04 20:32] LABS: ALBUMIN 2.7 g/dL (3.5-5.0); ALKALINE PHOSPHATASE 96 U/L (38-126); ANION GAP 9 (5-19); ASPARTATE AMINO TRANSFERASE 20 U/L (14-36); BILIRUBIN,TOTAL 0.5 mg/dL (0.2-1.3); BLOOD UREA NITROGEN 14 mg/dL (7-20); CALCIUM 8.5 mg/dL (8.4-10.2); CARBON DIOXIDE 18 mmol/L (22-30); CHLORIDE 107 mmol/L (98-107); GLUCOSE 100 mg/dL (75-110); POTASSIUM 3.7 mmol/L (3.6-5.0); TOTAL PROTEIN 5.3 g/dL (6.3-8.2)
[2019-07-04 20:37] LABS: A TYPE INFLUENZA AG NEGATIVE (NEGATIVE); B INFLUENZA AG NEGATIVE (NEGATIVE)
[2019-07-04 20:41] LABS: ABSOLUTE LYMPHOCYTES# (MANUAL) 0.9 10^3/uL (0.5-4.7); ABSOLUTE MONOCYTES # (MANUAL) 0.6 10^3/uL (0.1-1.4); BASOPHILS % (MANUAL) 0 % (0-2); EOSINOPHILS % (MANUAL) 0 % (0-6); LYMPHOCYTES % (MANUAL) 6 % (13-45); MONOCYTES % (MANUAL) 4 % (3-13); SEGMENTED NEUTROPHILS % (MAN) 90 % (42-78); TOTAL CELLS COUNTED 100
[2019-07-04 20:44] LABS: CREATINE KINASE MB 2.59 ng/mL (<4.55)
[2019-07-04 20:45] LABS: ANISOCYTOSIS SLIGHT
[2019-07-04 20:46] LABS: PLATELET COMMENT ADEQUATE; PLATELET LARGE PRESENT
[2019-07-04 20:47] LABS: TROPONIN I 0.204 ng/mL
[2019-07-04] MEDS ORDERED: PIPERACILLIN/TAZOBACTAM 4.5 GM VIAL IV ONE (21:51)
[2019-07-04] MEDS ORDERED: VANCOMYCIN HCL INJ 1000 MG VIAL IV ONE (21:51)
[2019-07-04] MEDS ORDERED: NORMAL SALINE IV ONE (21:51)
[2019-07-04 22:08] LABS: INTERNATIONAL RATION (INR) 1.18
[2019-07-04] MEDS ORDERED: LORAZEPAM INJ 2 MG/1 ML VIAL IV ONE (22:09)
--- NOTE | 2019-07-04 22:17 | RADIOLOGY REPORT (SQ) ---
CLINICAL INDICATION: fever, dyspnea. TECHNIQUE: A single portable AP view was obtained of the chest at 2141 hours. COMPARISON: July 01, 2019. FINDINGS: The cardiomediastinal silhouette is prominent but stable. The lungs demonstrate interstitial prominence, progressive. Mild fluffy associated alveolar space disease. No evidence of effusion or pneumothorax. The visualized bones are unremarkable. The right IJ power injectable port catheter remains in good position IMPRESSION: Progressive interstitial changes diffusely bilaterally. Progressive mild fluffy alveolar space disease, bilaterally. Presumed infectious inflammatory.
[2019-07-04] MEDS ORDERED: ASPIRIN 81 MG TABLET, CHEWABLE PO ONE (22:41)
--- NOTE | 2019-07-04 23:18 | ER Document Report ---
Entered by REJI CHAUDHRY SCRIBE [id number]/04/[id number] Acting as scribe for:YECENIA HATHAWAY IV, MD ED General - General Chief Complaint: Fever Stated Complaint: SHORTNESS OF BREATH Time Seen by Provider: 07/04/19 21:28 Primary Care Provider: ELEUTERIO LANG PA-C [Primary Care Provider] - Follow up as needed Mode of Arrival: Medic Information source: Patient Notes: This 69 year old female patient with a history of COPD brought in by EMS presents to the ED today with complaints of fever, nonproductive cough, and shortness of breath for the past x2 days. Patient was seen here on 06/29/19 and discharged on 07/02/19 with a diagnosis of pancreatitis and prescription for Augmentin. Patient states that since discharge, she has taken x2 doses of Augme ntin, she hasn't been able to eat, felt nauseous, and has had increasing shortness of breath with exertion and weakness, so she went to [facility] today and was sent here via EMS for further evaluation. She reports that she had a temperature of 103 yesterday which was brought down to 99 with Tylenol and a temperature of 100 today with last dose of Tylenol around 1100. She notes some anxiety concerning COVID-19 and is requesting to be tested for the virus. She reports a past medical history of PNA x2-3 years ago, stating that she was transferred to [place] for further treatment. She notes that she quit smoking x2 months ago. Denies chest pain. TRAVEL OUTSIDE OF THE [place] IN LAST 30 DAYS: No - Related Data Allergies/Adverse Reactions: codeine Allergy (Verified 06/29/19 18:15) naproxen Allergy (Verified 06/29/19 18:15) pregabalin [From Lyrica] Allergy (Verified 06/29/19 18:15) Past Medical History - General Information source: Patient, [facility] Records - Social History Smoking Status: Former Smoker - quit x2 month ago Cigarette use (# per day): No Chew tobacco use (# tins/day): No Smoking Education Provided: No Frequency of alcohol use: None Drug Abuse: None Family History: Reviewed & Not Pertinent, Malignancy Patient has suicidal ideation: No Patient has homicidal ideation: No Pulmonary Medical History: Reports: Hx COPD GI Medical History: Reports: Hx Crohn's Disease, Hx Gastroesophageal Reflux Disease, Hx Colonoscopy, Hx Endoscopy Musculoskeletal Medical History: Reports Hx Arthritis, Reports Hx Musculoskeletal Deformity Skin Medical History: Reports Hx MRSA Psychiatric Medical History: Reports: Hx Depression Past Surgical History: Reports: Hx Bowel Surgery, Hx Cholecystectomy, Hx Colostomy, Hx Hysterectomy, Hx Ileostomy, Hx Orthopedic Surgery - feet, Hx Rectal Surgery - removed, Other - Total colectomy - Immunizations Hx Diphtheria, Pertussis, Tetanus Vaccination: No Hx Pneumococcal Vaccination: 12/23/15 Review of Systems - Review of Systems Constitutional: See HPI, Fever, Weakness EENT: No symptoms reported Cardiovascular: See HPI. denies: Chest pain Respiratory: See HPI, Cough, Short of breath Gastrointestinal: See HPI, Nausea Genitourinary: No symptoms reported Female Genitourinary: No symptoms reported Musculoskeletal: No symptoms reported Skin: No symptoms reported Hematologic/Lymphatic: No symptoms reported Neurological/Psychological: No symptoms reported -: Yes All other systems reviewed and negative Physical Exam - Vital signs Vitals: Pulse Ox 86 L 07/04/19 17:55 - General General appearance: Alert, Other - Appears fatigued, but nontoxic - HEENT Head: Normocephalic, Atraumatic Eyes: Normal Pupils: PERRL - Respiratory Respiratory status: No respiratory distress Chest status: Nontender Breath sounds: Other - Crackles in left lung base Chest palpation: Normal - Cardiovascular Rhythm: Regular Heart sounds: Normal auscultation Murmur: No Friction rub: No Gallop: None auscultated - Abdominal Inspection: Other - Ileostomy in place Distension: No distension Bowel sounds: Normal Tenderness: Nontender - Abdomen soft Organomegaly: No organomegaly - Back Back: Normal, Nontender - Extremities General upper extremity: Normal inspection General lower extremity: Normal inspection. No: Edema - No pedal edema - Neurological Neuro grossly intact: Yes Orientation: AAOx4 - Psychological Associated symptoms: Normal affect, Normal mood - Skin Skin Temperature: Warm Skin Moisture: Dry Skin Color: Normal Course - Vital Signs Vital signs: Temp Pulse Resp BP Pulse Ox 99.3 F 94 22 H 113/67 93 07/04/19 21:24 07/04/19 18:23 07/04/19 21:31 07/04/19 21:31 07/04/19 21:31 - Laboratory Result Diagrams: 07/04/19 18:22 07/04/19 18:22 Laboratory results interpreted by me: 07/04/19 07/04/19 07/04/19 18:22 18:22 18:22 WBC 15.5 H RBC 2.61 L Hgb 8.5 L Hct 25.0 L RDW 15.9 H Seg Neuts % (Manual) 90 H Lymphocytes % (Manual) 6 L Abs Neuts (Manual) 14.0 H VBG pH 7.25 L VBG HCO3 18.1 L Sodium 134.2 L Carbon Dioxide 18 L Est GFR ( Amer) 59 L Est GFR (MDRD) Non-Af 49 L Total Protein 5.3 L Albumin 2.7 L - Diagnostic Test Radiology reviewed: Reports reviewed - EKG Interpretation by Me Additional EKG results interpreted by me: 07/04/19 23:36 EKG obtained on 07/04/2019 at 2224 hrs. was interpreted by this MD. Findings: Normal sinus rhythm, rate 83, normal axis, P waves proceed QRS complexes, QRS appears narrow, there are no obvious patterns of ST segment elevation or depression present to suggest acute myocardial ischemia or infarction. Impression: Normal sinus rhythm with nonspecific ST segments. - Consults dr. bro, cardiology Time consulted: 23:23 - Dr. Stone agreed with the plan to treat the patient conservatively at this point with aspirin since she is not complaining of chest pain and has a normal-appearing EKG. He stated he would be happy to consult on the patient and do an echo on the patient tomorrow. Reason for consultation: 07/04/19 23:[address] brenda larsen Time consulted: 23:38 - Dr. Larsen requested CTA of chest be done. He agreed to admit the patient Reason for consultation: 07/04/19 23:38 pna, elevated troponin Consulted provider: will see as inpatient Discharge - Discharge Clinical Impression: NSTEMI (non-ST elevated myocardial infarction) Pneumonia Qualifiers: Pneumonia type: due to unspecified organism Laterality: unspecified laterality Lung location: unspecified part of lung Qualified Code(s): J18.9 - Pneumonia, unspecified organism Condition: Good Disposition: ADMITTED INPATIENT Admitting Provider: Chava (Hospitalist) Unit Admitted: IMCU Referrals: ELEUTERIO LANG PA-C [Primary Care Provider] - Follow up as needed I personally performed the services described in the documentation, reviewed and edited the documentation which was dictated to the scribe in my presence, and it accurately records my words and actions.
[2019-07-04] MEDS ORDERED: IPRATROPIUM/ALBUTEROL 0.5-2.5 MG/3 ML AMPUL NEB PRN (23:38)
[2019-07-04] MEDS ORDERED: CEFEPIME 2 GM/D5W RTU 2 GM/50 ML RTUPB IV SCH (23:45)
[2019-07-04] MEDS ORDERED: VANCOMYCIN HCL 0 MG in DEXTROSE 5%-WATER 250 ML IV NR (23:45)
--- NOTE | 2019-07-04 23:58 | EKG REPORT ---
SEVERITY:- NORMAL ECG - SINUS RHYTHM : Confirmed by: Darron Carranza 04-Jul-2019 23:57:47
[2019-07-05 01:08] LABS: RETICULOCYTE COUNT (AUTO) 1.77 % (0.66-2.85)
[2019-07-05] MEDS: ASPIRIN 325 MG TABLET PO SCH ×2 (01:17→13:55)
[2019-07-05] MEDS: ZINC SULFATE 220 MG CAPSULE PO SCH ×2 (01:26→13:56)
[2019-07-05] MEDS: CHOLECALCIFEROL (D3) 400 UNIT TABLET PO SCH ×2 (01:26→13:55)
[2019-07-05] MEDS: ASCORBIC ACID 500 MG TABLET PO SCH ×3 (01:26→17:23)
--- NOTE | 2019-07-05 01:27 | RADIOLOGY REPORT (SQ) ---
EXAM DESCRIPTION: CT CHEST ANGIOGRAPHY WITHOUT THEN WITH IV CONTRAST COMPLETED DATE/TME: 07/04/2019 23:33 CLINICAL HISTORY: 69 years Female, dyspnea, elevated troponin, tachycardia. CREAT 1.11 Comparison: 04/13/17. CR, two hours prior. Technique: IV contrast. Coronal and sagittal reformat. 3d reconstruction. This exam was performed according to our departmental dose-optimization program, which includes automated exposure control, adjustment of the mA and/or kV according to patient size and/or use of iterative reconstruction technique.[facility]: Dose Right [facility]: CareDose [facility]: Dose Right [facility]: Teradose 4D [facility]: Cerora LIMITATIONS: None Findings: No pulmonary embolus. Prominence of the right ventricle. Right jugular miniport catheter tip at the cavoatrial junction. Moderate bilateral pleural effusions, right more than left. Extensive ground glass, patchy, streaky opacities of both lung la, left more than right. Coronary arterial calcification. Atherosclerotic vascular disease. Nodular defect at the left paracentral posterior distal trachea probably due to mucous, image 35 of series 4. Mild deformity of the right mid posterior thoracic ribs indicative of prior injury. Prominence of mediastinal and left hilar nodes. Degenerative disc disease. Spondylosis. Inferior neck, axillae, heart, vasculature, upper abdomen, and musculoskeleton appear otherwise unremarkable. Impression: 1. Extensive groundglass opacities of both lungs. Moderate bilateral pleural effusions. Imaging features can be seen with viral pneumonia, though are nonspecific and can occur with a variety of infectious and noninfectious processes. [PneInd] 2. No pulmonary embolus.
[2019-07-05 01:36] LABS: CREATINE KINASE MB 2.13 ng/mL (<4.55)
[2019-07-05 01:43] LABS: TROPONIN I 0.246 ng/mL
[2019-07-05] MEDS: ENOXAPARIN SODIUM INJ 60 MG/0.6 ML DISP.SYRIN SUBCUT SCH ×3 (02:02→21:20)
[2019-07-05 02:24] LABS: CREATINE KINASE 33 U/L (30-135); IRON(TIBC) 30.1 ug/dL (37-170)
[2019-07-05] MEDS ORDERED: IRON SUCROSE COMPLEX INJ/PF 100 MG/5 ML SDV IV ONE (04:20)
--- NOTE | 2019-07-05 04:42 | PDOC H&P ---
History of Present Illness Admission Date/PCP: 07/04/19 23:46 ELEUTERIO LANG PA-C Patient complains of: Fever and shortness of breath History of Present Illness: DONALD ALBRIGHT is a 69 year old female with a past medical history of complicated Crohn's disease with colostomy, depression, anxiety, COPD with bronchitis, and tobacco dependence. Patient was discharged 72 hours ago after treatment of acute pancreatitis, COPD exacerbation and acute on chronic bronchitis. She was discharged on Augmentin but now presents with 48 hours of fever, nonproductive cough, shortness of breath stating she fears of coronavirus exposure. In the emergency department she is found to have sepsis with hypotension, fever, leukocytosis, elevated troponin. CT reveals moderate bilateral pleural effusions and extensive groundglass opacity. Her EKG is unchanged from baseline. She receives normal saline, aspirin, vancomycin, Zosyn, and referred to the hospitalist for admission. She verifies her CODE STATUS is DNR. Past Medical History Pulmonary Medical History: Reports: Bronchitis, Chronic Obstructive Pulmonary Disease (COPD) Neurological Medical History: Denies: Seizures Endocrine Medical History: Denies: Diabetes Mellitus Type 2 GI Medical History: Reports: Crohn's Disease, Gastroesophageal Reflux Disease Musculoskeltal Medical History: Reports: Arthritis Skin Medical History: Denies: Eczema, Psoriasis Psychiatric Medical History: Reports: Depression, General Anxiety Disorder, Tobacco Dependency Hematology: Reports: Anemia Past Surgical History Past Surgical History: Reports: Cholecystectomy, Colostomy, Hysterectomy, Ileostomy, Orthopedic Surgery - feet, Other - Total colectomy Social History Information Source: [facility], [facility] Smoking Status: Current Every Day Smoker Electronic Cigarette use?: No Frequency of Alcohol Use: None Hx Recreational Drug Use: No Drugs: None Hx Prescription Drug Abuse: No - Advance Directive Resuscitation Status: Do Not Resuscitate Family History Family History: Arthritis, COPD, Hypertension, Malignancy Parental Family History Reviewed: Yes Children Family History Reviewed: Yes Sibling(s) Family History Reviewed.: Yes Medication/Allergy Home Medications: Albuterol Sulfate [Proair HFA Inhalation Aerosol 8.5 gm MDI] 2 puff IH Q6HP PRN 10/23/18 Buspirone HCl [Buspar 15 mg Tablet] 30 mg PO Q12 10/23/18 Cetirizine HCl [Zyrtec 10 mg Tablet] 10 mg PO DAILY 10/23/18 Cyanocobalamin (Vitamin B-12) [Vitamin B-12 1000 mcg Tablet] 1,000 mcg PO DAILY 10/23/18 Dicyclomine HCl [Bentyl 20 mg Tablet] 20 mg PO QIDP PRN 10/23/18 Ergocalciferol (Vitamin D2) [Drisdol 50,000 unit (1.25MG) Capsule] 50,000 unit PO TH@1000 10/23/18 Magnesium Oxide [Mag-Ox 400 mg Tablet] 400 mg PO DAILY 10/23/18 Omeprazole 40 mg PO QAM 10/23/18 Ondansetron HCl [Zofran 4 mg Tablet] 8 mg PO Q12HP PRN 10/23/18 Trazodone HCl [Desyrel 50 mg Tablet] 100 mg PO QHS 10/23/18 Gabapentin [Neurontin 300 mg Capsule] 600 mg PO Q8 #90 capsule 10/24/18 Diphenoxylate HCl/Atrop Sulf [Lomotil 2.5 mg Tablet] 1 tab PO QIDP PRN 06/29/19 Fluoxetine HCl [Prozac] 40 mg PO [id number] 06/29/19 Ibuprofen [Motrin 800 mg Tablet] 800 mg PO Q8HP PRN 06/29/19 Propranolol HCl [Inderal 10 mg Tablet] 10 mg PO BIDP PRN 06/29/19 Pyridoxine HCl (Vitamin B6) [Vitamin B-6] 100 mg PO DAILY 06/29/19 Ropinirole HCl 1 mg PO QPMP PRN 06/29/19 Suvorexant [Belsomra] 15 mg PO HSP PRN 06/29/19 Acetaminophen [Tylenol 325 mg Tablet] 650 mg PO Q4HP PRN tablet 07/02/19 Amoxicillin/Potassium Clav [Augmentin 875-125 Tablet] 1 tab PO BID #20 tab 07/02/19 Fluticasone/Vilanterol [Breo 100-25 Mcg Ellipta 14 Dose/Dpi] 1 inh IH DAILY #1 inhaler 07/02/19 Nicotine [Nicoderm 7 mg/24 Hr Transdermal Patch] 1 each TD DAILYP PRN #30 patch.td24 07/02/19 Oxycodone HCl/Acetaminophen [Percocet 5-325 mg Tablet] 1 - 2 tab PO Q6HP PRN #24 tablet 07/02/19 Allergies/Adverse Reactions: codeine Allergy (Verified 06/29/19 18:15) naproxen Allergy (Verified 06/29/19 18:15) pregabalin [From Lyrica] Allergy (Verified 06/29/19 18:15) Review of Systems Constitutional: PRESENT: as per HPI, anorexia, chills, fatigue, weakness. ABSENT: fever(s), headache(s), weight gain, weight loss Eyes: ABSENT: visual disturbances Ears: ABSENT: hearing changes Cardiovascular: PRESENT: as per HPI, dyspnea on exertion, edema, orthropnea. ABSENT: chest pain, palpitations Respiratory: PRESENT: as per HPI, cough, dyspnea. ABSENT: hemoptysis, sputum Gastrointestinal: PRESENT: as per HPI. ABSENT: abdominal pain, constipation, diarrhea, hematemesis, hematochezia, nausea, vomiting Genitourinary: ABSENT: dysuria, hematuria Musculoskeletal: ABSENT: joint swelling Integumentary: ABSENT: rash, wounds Neurological: ABSENT: abnormal gait, abnormal speech, confusion, dizziness, focal weakness, syncope Psychiatric: ABSENT: anxiety, depression, homidical ideation, suicidal ideation Endocrine: ABSENT: cold intolerance, heat intolerance, polydipsia, polyuria Hematologic/Lymphatic: ABSENT: easy bleeding, easy bruising Physical Exam Vital Signs: Temp Pulse Resp BP Pulse Ox 99.4 F 84 19 93/52 L 88 L 07/05/19 01:18 07/05/19 01:18 07/05/19 01:18 07/05/19 01:18 07/05/19 01:18 Intake & Output 07/03/19 07/04/19 07/05/19 11:59 11:59 11:59 Intake Total 1000 Balance 1000 Weight 62.5 kg General appearance: PRESENT: cooperative, mild distress, well-developed. ABSENT: well-nourished Head exam: PRESENT: atraumatic, normocephalic Eye exam: PRESENT: conjunctiva pink, EOMI, PERRLA. ABSENT: scleral icterus Ear exam: PRESENT: normal external ear exam Mouth exam: PRESENT: moist, tongue midline Neck exam: PRESENT: JVD. ABSENT: carotid bruit, lymphadenopathy, thyromegaly Respiratory exam: PRESENT: clear to auscultation heydi. ABSENT: rales, rhonchi, wheezes Cardiovascular exam: PRESENT: RRR, +S1, +S2, systolic murmur. ABSENT: diastolic murmur, rubs Pulses: PRESENT: normal dorsalis pedis pul Vascular exam: PRESENT: normal capillary refill GI/Abdominal exam: PRESENT: normal bowel sounds, soft. ABSENT: distended, guarding, mass, organolmegaly, rebound, tenderness Rectal exam: PRESENT: deferred Extremities exam: PRESENT: full ROM. ABSENT: calf tenderness, clubbing, pedal edema Neurological exam: PRESENT: alert, awake, oriented to person, oriented to place, oriented to time, oriented to situation, CN II-XII grossly intact. ABSENT: motor sensory deficit Psychiatric exam: PRESENT: appropriate affect, normal mood. ABSENT: homicidal ideation, suicidal ideation Skin exam: PRESENT: dry, intact, warm. ABSENT: cyanosis, rash Results Laboratory Results: 07/04/19 18:22 07/04/19 18:22 07/04/19 07/04/19 07/04/19 18:22 18:22 18:22 WBC 15.5 H RBC 2.61 L Hgb 8.5 L Hct 25.0 L MCV 96 MCH 32.5 MCHC 33.9 RDW 15.9 H Plt Count 191 Seg Neutrophils % Not Reportable Retic Count (auto) VBG pH 7.25 L VBG pCO2 42.5 VBG HCO3 18.1 L VBG Base Excess -8.8 Sodium Potassium Chloride Carbon Dioxide Anion Gap BUN Creatinine Est GFR ( Amer) Glucose Lactic Acid 1.0 Calcium Iron TIBC % Saturation Ferritin Total Bilirubin AST Alkaline Phosphatase Total Protein Albumin Lipase Vitamin B12 Folate 07/04/19 07/04/19 07/05/19 18:22 18:22 00:53 WBC RBC Hgb Hct MCV MCH MCHC RDW Plt Count Seg Neutrophils % Retic Count (auto) 1.77 VBG pH VBG pCO2 VBG HCO3 VBG Base Excess Sodium 134.2 L Potassium 3.7 Chloride 107 Carbon Dioxide 18 L Anion Gap 9 BUN 14 Creatinine 1.11 Est GFR ( Amer) 59 L Glucose 100 Lactic Acid Calcium 8.5 Iron TIBC % Saturation Ferritin Total Bilirubin 0.5 AST 20 Alkaline Phosphatase 96 Total Protein 5.3 L Albumin 2.7 L Lipase 293.8 Vitamin B12 Folate 07/05/19 00:53 WBC RBC Hgb Hct MCV MCH MCHC RDW Plt Count Seg Neutrophils % Retic Count (auto) VBG pH VBG pCO2 VBG HCO3 VBG Base Excess Sodium Potassium Chloride Carbon Dioxide Anion Gap BUN Creatinine Est GFR ( Amer) Glucose Lactic Acid Calcium Iron 30.1 L TIBC 255 % Saturation 12 Ferritin 119.00 Total Bilirubin AST Alkaline Phosphatase Total Protein Albumin Lipase Vitamin B12 871.0 Folate 19.90 07/04/19 07/04/19 07/05/19 18:22 18:22 00:53 Creatine Kinase 45 CK-MB (CK-2) 2.59 Troponin I 0.204 NT-Pro-B Natriuret Pep [id number] H 07/05/19 07/05/19 00:53 00:53 Creatine Kinase 33 CK-MB (CK-2) 2.13 Troponin I 0.246 NT-Pro-B Natriuret Pep Impressions: Chest X-Ray 07/04/19 21:30 IMPRESSION: Progressive interstitial changes diffusely bilaterally. Progressive mild fluffy alveolar space disease, bilaterally. Presumed infectious inflammatory. Assessment and Plan - Diagnosis (1) Pneumonia Qualifiers: Pneumonia type: due to unspecified organism Laterality: bilateral Lung location: unspecified part of lung Qualified Code(s): J18.9 - Pneumonia, unspecified organism Is this a current diagnosis for this admission?: Yes Plan: Concern for hospital-acquired pneumonia given recent hospitalization, vancomycin and cefepime ordered empirically. Additional concern for coronavirus 19 given pandemic and atypical pneumonia by CT. Isolation, supplemental oxygen, supportive measures, albuterol, Atrovent, vitamin C, D, zinc ordered. Follow-up CBC, chemistry, COVID testing and blood culture (2) NSTEMI (non-ST elevated myocardial infarction) Is this a current diagnosis for this admission?: Yes Plan: Unclear chronicity but likely secondary to #1 and complicated by COPD and anemia. Aspirin and Lovenox ordered. Add beta-arnel if blood pressure allows following compensation of acute congestive heart failure. Follow-up 2D echo, serial troponin and cardiology consult. (3) Congestive heart failure Is this a current diagnosis for this admission?: Yes Plan: Likely secondary to #1 and 2, concern for a very compromised ejection fraction, fluid restrict as tolerated but anticipate will require pressors. (4) Anemia Qualifiers: Anemia type: other cause Is this a current diagnosis for this admission?: Yes Plan: Goal hemoglobin greater than 9, transfuse 2 units of packed red blood cells given acute non-ST elevation AL. Follow-up anemia labs. (5) COPD (chronic obstructive pulmonary disease) Qualifiers: COPD type: unspecified COPD Qualified Code(s): J44.9 - Chronic obstructive pulmonary disease, unspecified Is this a current diagnosis for this admission?: Yes Plan: Supplemental oxygen, flutter valve, incentive spirometry. Albuterol and Atrovent. - Time Time Spent with patient: 25-34 minutes - Inpatient Certification Medical Necessity: Need Close Monitoring Due to Risk of Patient Decompensation
[2019-07-05] MEDS ORDERED: NORMAL SALINE 250 ML IV PRN ×2 (04:46)
[2019-07-05 05:45] LABS: ABSOLUTE EOSINOPHILS # (AUTO) 0.1 10^3/uL (0.0-0.6); ABSOLUTE LYMPHOCYTES (AUTO) 0.7 10^3/uL (0.5-4.7); ABSOLUTE MONOCYTES (AUTO) 0.8 10^3/uL (0.1-1.4); ABSOLUTE NEUT (AUTO) 10.8 10^3/uL (1.7-8.2); BASOPHILS % (AUTO) 0.1 % (0-2); EOSINOPHILS % (AUTO) 0.8 % (0-6); HEMATOCRIT 22.4 % (36.0-47.0); LYMPHOCYTES % (AUTO) 5.9 % (13-45); MEAN CORPUSCULAR HEMOGLOBIN 32.7 pg (27.0-33.4); MEAN CORPUSCULAR HGB CONC 34.4 g/dL (32.0-36.0); MEAN CORPUSCULAR VOLUME 95 fl (80-97); MONOCYTES % (AUTO) 6.1 % (3-13); PLATELET COUNT 206 10^3/uL (150-450); RED BLOOD COUNT 2.35 10^6/uL (3.72-5.28); RED CELL DISTRIBUTION WIDTH 15.5 % (11.5-14.0); SEGMENTED NEUTROPHILS % (AUTO) 87.1 % (42-78); TOTAL CELLS COUNTED % (AUTO) 100 %; WHITE BLOOD COUNT 12.4 10^3/uL (4.0-10.5)
[2019-07-05 05:47] LABS: HEMOGLOBIN 7.7 g/dL (12.0-15.5)
[2019-07-05 05:58] LABS: ANION GAP 10 (5-19); BLOOD UREA NITROGEN 14 mg/dL (7-20); CALCIUM 7.9 mg/dL (8.4-10.2); CARBON DIOXIDE 16 mmol/L (22-30); CHLORIDE 111 mmol/L (98-107); CREATINE KINASE 41 U/L (30-135); GLUCOSE 95 mg/dL (75-110); POTASSIUM 3.6 mmol/L (3.6-5.0)
[2019-07-05 06:10] LABS: CREATINE KINASE MB 2.95 ng/mL (<4.55); TROPONIN I 0.192 ng/mL
[2019-07-05] MEDS ORDERED: ALBUTEROL SULFATE 0.083% NEB 2.5 MG/3 ML AMPUL NEB PRN (08:13)
--- NOTE | 2019-07-05 08:42 | PDOC CONSULTATION ---
Consultation Consult Date: 07/05/19 Attending physician:: SKYLAR VEE Provider Consulted: ANALY FLORIAN Consult reason:: Elevated troponin. History of Present Illness Admission Date/PCP: 07/04/19 23:46 ELEUTERIO LANG PA-C Patient complains of: Severe shortness of breath. History of Present Illness: DONALD ALBRIGHT is a 69 year old female with history of complicated Crohn's disease including a total colectomy and ileostomy, depression, tobacco abuse and COPD who is consulted to our service for further evaluation of elevated troponin. The patient was recently admitted to this facility for acute pancreatitis and was just discharged to care home facility on 07/01/2019. Her chest x-ray at that time demonstrated the possibility of a developing pneumonia along with trace bilateral pleural effusions. She was discharged on p.o. antibiotics but unfortunately she developed significant shortness of breath and increased work of breathing therefore she came to the emergency room for further evaluation. She specifically denies all cardiac history such as myocardial infarction, angina, angina equivalents, lower extremity edema, palpi tations as well as heart failure. She is currently admitted to an isolation room due to suspected coronavirus therefore a virtual consult using a WebCam and Glarity system was used to interview the patient, no physical exam was possible. During the virtual interview the patient is noted to be in respiratory distress and complaining of severe shortness of breath. She denies chest pain as well as other anginal equivalents. Physical exam: Not performed today due to the reasons mentioned above. Past Medical History Pulmonary Medical History: Reports: Bronchitis, Chronic Obstructive Pulmonary Disease (COPD) Neurological Medical History: Denies: Seizures Endocrine Medical History: Denies: Diabetes Mellitus Type 2 GI Medical History: Reports: Crohn's Disease, Gastroesophageal Reflux Disease Musculoskeltal Medical History: Reports: Arthritis Skin Medical History: Denies: Eczema, Psoriasis Psychiatric Medical History: Reports: Depression, General Anxiety Disorder, Tobacco Dependency Hematology: Reports: Anemia Past Surgical History Past Surgical History: Reports: Cholecystectomy, Colostomy, Hysterectomy, Ileostomy, Orthopedic Surgery - feet, Other - Total colectomy Social History Smoking Status: Current Every Day Smoker Electronic Cigarette use?: No Frequency of Alcohol Use: None Hx Recreational Drug Use: No Drugs: None Hx Prescription Drug Abuse: No - Advance Directive Resuscitation Status: Do Not Resuscitate Family History Family History: Arthritis, COPD, Hypertension, Malignancy Parental Family History Reviewed: Yes Children Family History Reviewed: Yes Sibling(s) Family History Reviewed.: Yes Medication/Allergy Home Medications: Albuterol Sulfate [Proair HFA Inhalation Aerosol 8.5 gm MDI] 2 puff IH Q6HP PRN 10/23/18 Buspirone HCl [Buspar 15 mg Tablet] 30 mg PO Q12 10/23/18 Cetirizine HCl [Zyrtec 10 mg Tablet] 10 mg PO DAILY 10/23/18 Cyanocobalamin (Vitamin B-12) [Vitamin B-12 1000 mcg Tablet] 1,000 mcg PO DAILY 10/23/18 Dicyclomine HCl [Bentyl 20 mg Tablet] 20 mg PO QIDP PRN 10/23/18 Ergocalciferol (Vitamin D2) [Drisdol 50,000 unit (1.25MG) Capsule] 50,000 unit PO TH@1000 10/23/18 Magnesium Oxide [Mag-Ox 400 mg Tablet] 400 mg PO DAILY 10/23/18 Omeprazole 40 mg PO QAM 10/23/18 Ondansetron HCl [Zofran 4 mg Tablet] 8 mg PO Q12HP PRN 10/23/18 Trazodone HCl [Desyrel 50 mg Tablet] 100 mg PO QHS 10/23/18 Gabapentin [Neurontin 300 mg Capsule] 600 mg PO Q8 #90 capsule 10/24/18 Diphenoxylate HCl/Atrop Sulf [Lomotil 2.5 mg Tablet] 1 tab PO QIDP PRN 06/29/19 Fluoxetine HCl [Prozac] 40 mg PO [id number] 06/29/19 Ibuprofen [Motrin 800 mg Tablet] 800 mg PO Q8HP PRN 06/29/19 Propranolol HCl [Inderal 10 mg Tablet] 10 mg PO BIDP PRN 06/29/19 Pyridoxine HCl (Vitamin B6) [Vitamin B-6] 100 mg PO DAILY 06/29/19 Ropinirole HCl 1 mg PO QPMP PRN 06/29/19 Suvorexant [Belsomra] 15 mg PO HSP PRN 06/29/19 Acetaminophen [Tylenol 325 mg Tablet] 650 mg PO Q4HP PRN tablet 07/02/19 Amoxicillin/Potassium Clav [Augmentin 875-125 Tablet] 1 tab PO BID #20 tab 07/02/19 Fluticasone/Vilanterol [Breo 100-25 Mcg Ellipta 14 Dose/Dpi] 1 inh IH DAILY #1 inhaler 07/02/19 Nicotine [Nicoderm 7 mg/24 Hr Transdermal Patch] 1 each TD DAILYP PRN #30 patc h.td24 07/02/19 Oxycodone HCl/Acetaminophen [Percocet 5-325 mg Tablet] 1 - 2 tab PO Q6HP PRN #24 tablet 07/02/19 Allergies/Adverse Reactions: codeine Allergy (Verified 06/29/19 18:15) naproxen Allergy (Verified 06/29/19 18:15) pregabalin [From Lyrica] Allergy (Verified 06/29/19 18:15) Physical Exam Vital Signs: Temp Pulse Resp BP Pulse Ox 98.7 F 90 21 H 109/50 L 86 L 07/05/19 05:31 07/05/19 05:31 07/05/19 05:31 07/05/19 05:31 07/05/19 05:31 Intake & Output 07/04/19 07/05/19 07/06/19 06:59 06:59 06:59 Intake Total 1000 Balance 1000 Weight 59.3 kg Results Laboratory Results: 07/05/19 05:17 07/05/19 05:17 07/04/19 07/04/19 07/04/19 18:22 18:22 18:22 WBC 15.5 H RBC 2.61 L Hgb 8.5 L Hct 25.0 L MCV 96 MCH 32.5 MCHC 33.9 RDW 15.9 H Plt Count 191 Seg Neutrophils % Not Reportable Retic Count (auto) VBG pH 7.25 L VBG pCO2 42.5 VBG HCO3 18.1 L VBG Base Excess -8.8 Sodium Potassium Chloride Carbon Dioxide Anion Gap BUN Creatinine Est GFR ( Amer) Glucose Lactic Acid 1.0 Calcium Iron TIBC % Saturation Ferritin Total Bilirubin AST Alkaline Phosphatase Total Protein Albumin Lipase Vitamin B12 Folate Blood Type Antibody Screen 07/04/19 07/04/19 07/05/19 18:22 18:22 00:53 WBC RBC Hgb Hct MCV MCH MCHC RDW Plt Count Seg Neutrophils % Retic Count (auto) 1.77 VBG pH VBG pCO2 VBG HCO3 VBG Base Excess Sodium 134.2 L Potassium 3.7 Chloride 107 Carbon Dioxide 18 L Anion Gap 9 BUN 14 Creatinine 1.11 Est GFR ( Amer) 59 L Glucose 100 Lactic Acid Calcium 8.5 Iron TIBC % Saturation Ferritin Total Bilirubin 0.5 AST 20 Alkaline Phosphatase 96 Total Protein 5.3 L Albumin 2.7 L Lipase 293.8 Vitamin B12 Folate Blood Type Antibody Screen 07/05/19 07/05/19 07/05/19 00:53 05:17 05:17 WBC 12.4 H RBC 2.35 L Hgb 7.7 L Hct 22.4 L MCV 95 MCH 32.7 MCHC 34.4 RDW 15.5 H Plt Count 206 Seg Neutrophils % 87.1 H Retic Count (auto) VBG pH VBG pCO2 VBG HCO3 VBG Base Excess Sodium 136.7 L Potassium 3.6 Chloride 111 H Carbon Dioxide 16 L Anion Gap 10 BUN 14 Creatinine 0.94 Est GFR ( Amer) > 60 Glucose 95 Lactic Acid Calcium 7.9 L Iron 30.1 L TIBC 255 % Saturation 12 Ferritin 119.00 Total Bilirubin AST Alkaline Phosphatase Total Protein Albumin Lipase Vitamin B12 871.0 Folate 19.90 Blood Type Antibody Screen 07/05/19 05:17 WBC RBC Hgb Hct MCV MCH MCHC RDW Plt Count Seg Neutrophils % Retic Count (auto) VBG pH VBG pCO2 VBG HCO3 VBG Base Excess Sodium Potassium Chloride Carbon Dioxide Anion Gap BUN Creatinine Est GFR ( Amer) Glucose Lactic Acid Calcium Iron TIBC % Saturation Ferritin Total Bilirubin AST Alkaline Phosphatase Total Protein Albumin Lipase Vitamin B12 Folate Blood Type A POSITIVE Antibody Screen NEGATIVE 07/04/19 07/04/19 07/05/19 18:22 18:22 00:53 Creatine Kinase 45 CK-MB (CK-2) 2.59 Troponin I 0.204 NT-Pro-B Natriuret Pep [id number] H 07/05/19 07/05/19 07/05/19 00:53 00:53 05:17 Creatine Kinase 33 41 CK-MB (CK-2) 2.13 Troponin I 0.246 NT-Pro-B Natriuret Pep 07/05/19 05:17 Creatine Kinase CK-MB (CK-2) 2.95 Troponin I 0.192 NT-Pro-B Natriuret Pep Impressions: Chest X-Ray 07/04/19 21:30 IMPRESSION: Progressive interstitial changes diffusely bilaterally. Progressive mild fluffy alveolar space disease, bilaterally. Presumed infectious inflammatory. 07/05/19 05:17 07/05/19 05:17 MCV 95 fl (80-97) 07/05/19 05:17 MCH 32.7 pg (27.0-33.4) 07/05/19 05:17 MCHC 34.4 g/dL (32.0-36.0) 07/05/19 05:17 RDW 15.5 % (11.5-14.0) H 07/05/19 05:17 Seg Neutrophils % 87.1 % (42-78) H 07/05/19 05:17 Retic Count (auto) 1.77 % (0.66-2.85) 07/05/19 00:53 VBG pH 7.25 (7.30-7.42) L 07/04/19 18:22 VBG pCO2 42.5 mmHg (35-63) 07/04/19 18:22 VBG HCO3 18.1 mmol/L (20-32) L 07/04/19 18:22 VBG Base Excess -8.8 mmol/L 07/04/19 18:22 Chloride 111 mmol/L (98-107) H 07/05/19 05:17 Carbon Dioxide 16 mmol/L (22-30) L 07/05/19 05:17 Anion Gap 10 (5-19) 07/05/19 05:17 Est GFR ( Amer) > 60 (>60) 07/05/19 05:17 Glucose 95 mg/dL (75-110) 07/05/19 05:17 Lactic Acid 1.0 mmol/L (0.7-2.1) 07/04/19 18:22 Calcium 7.9 mg/dL (8.4-10.2) L 07/05/19 05:17 Iron 30.1 ug/dL (37-170) L 07/05/19 00:53 TIBC 255 ug/dL (250-450) 07/05/19 00:53 % Saturation 12 % 07/05/19 00:53 Ferritin 119.00 ng/mL (11.1-264.0) 07/05/19 00:53 Total Bilirubin 0.5 mg/dL (0.2-1.3) 07/04/19 18:22 AST 20 U/L (14-36) 07/04/19 18:22 Alkaline Phosphatase 96 U/L (38-126) 07/04/19 18:22 Total Protein 5.3 g/dL (6.3-8.2) L 07/04/19 18:22 Albumin 2.7 g/dL (3.5-5.0) L 07/04/19 18:22 Lipase 293.8 U/L (23-300) 07/04/19 18:22 Vitamin B12 871.0 pg/mL (239-931) 07/05/19 00:53 Folate 19.90 ng/mL (>2.76) 07/05/19 00:53 Blood Type A POSITIVE 07/05/19 05:17 Antibody Screen NEGATIVE 07/05/19 05:17 07/04/19 07/04/19 07/05/19 18:22 18:22 00:53 Creatine Kinase 45 CK-MB (CK-2) 2.59 Troponin I 0.204 NT-Pro-B Natriuret Pep 99976 H 07/05/19 07/05/19 07/05/19 00:53 00:53 05:17 Creatine Kinase 33 41 CK-MB (CK-2) 2.13 Troponin I 0.246 NT-Pro-B Natriuret Pep 07/05/19 05:17 Creatine Kinase CK-MB (CK-2) 2.95 Troponin I 0.192 NT-Pro-B Natriuret Pep Current Medication List Generic Name Dose Route Start Last Admin Trade Name Freq PRN Reason Stop Dose Admin Acetaminophen 650 mg 07/04/19 23:38 Tylenol 325 Mg Tablet PO 08/03/19 23:37 Q4HP PRN pain or temp greater than 101F Albuterol 2.5 mg 07/05/19 12:00 Ventolin 0.083% Neb 2.5 Mg/3 Ml Ampul NEB 08/04/19 11:59 RTQ4 VALERIE Albuterol 2.5 mg 07/05/19 08:13 Ventolin 0.083% Neb 2.5 Mg/3 Ml Ampul NEB 08/04/19 08:12 RTQ2HP PRN SHORTNESS OF BREATH Albuterol 2.5 mg 07/05/19 08:13 Ventolin 0.083% Neb 2.5 Mg/3 Ml Ampul NEB 07/05/19 08:14 NOW ONE Albuterol/Ipratropium 3 ml 07/04/19 23:38 Duoneb 3 Ml Ampul NEB 08/03/19 23:37 [id number] PRN SHORTNESS OF BREATH Ascorbic Acid 1,000 mg 07/04/19 23:45 07/05/19 01:26 Vitamin C 500 Mg Tablet PO 08/03/19 23:44 Not Given BID [facility] Aspirin 325 mg 07/04/19 23:45 07/05/19 01:17 Aspirin 325 Mg Tablet PO 08/03/19 23:44 Not Given DAILY [facility] Cholecalciferol 400 unit 07/04/19 23:45 07/05/19 01:26 Vitamin D3 400 Unit Tablet PO 08/03/19 23:44 Not Given DAILY [facility] Enoxaparin Sodium 60 mg 07/04/19 23:45 07/05/19 02:02 Lovenox Inj 60 Mg/0.6 Ml Disp.Syrin SUBCUT 08/03/19 23:44 Not Given Q12 [facility] Cefepime HCl 2 gm in 50 mls @ 100 mls/hr 07/04/19 23:45 07/05/19 01:42 Maxipime Rtu 2 Gm-D5w 50 Ml Premix Bag IV 07/11/19 23:44 Not Given Q12 [facility] Vancomycin HCl / Dextrose 250 mls @ 0 mls/hr 07/04/19 23:45 IV 07/11/19 23:44 .PHARMACY TO DOSE NR As Directed Sodium Chloride 250 mls @ 30 mls/hr 07/05/19 04:46 Nacl 0.9% 250 Ml Iv Soln IV 07/06/19 04:45 .DURING TRANSFUSION PRN THIS MED IS NOT "PRN" Sodium Chloride 250 mls @ 0 mls/hr 07/05/19 04:46 Nacl 0.9% 250 Ml Iv Soln IV 07/06/19 04:45 CONTINUOUS PRN AFTER EACH UNIT As Directed Melatonin 6 mg 07/05/19 22:00 Melatonin 3 Mg Tablet PO 08/04/19 21:59 QHS [facility] Sodium Chloride 2.5 ml 07/05/19 06:00 07/05/19 05:31 Saline Flush 2.5 Ml Monoject Prefil Syrin IV 08/04/19 05:59 2.5 ml Q8 [facility] Administration Zinc Sulfate 440 mg 07/04/19 23:45 04/24/20 01:26 Zinc-220 Capsule PO 08/03/19 23:44 Not Given DAILY VALERIE Discontinued Medications Generic Name Dose Route Start Last Admin Trade Name Christina PRN Reason Stop Dose Admin Acetaminophen 975 mg 07/04/19 18:22 07/04/19 18:52 Tylenol 325 Mg Tablet PO 07/04/19 18:23 975 mg NOW ONE Administration Aspirin 324 mg 07/04/19 22:41 07/04/19 22:56 Aspirin 81 Mg Chewable Tablet PO 07/04/19 22:42 324 mg NOW ONE Administration Sodium Chloride 1,000 mls @ 0 mls/hr 07/04/19 18:26 07/04/19 19:55 Nacl 0.9% 1000 Ml Iv Soln IV 07/04/19 18:27 Infused BOLUS ONE Infusion Wide Open Sodium Chloride 1,770 mls @ 442.5 mls/hr 07/04/19 21:51 07/04/19 22:28 Nacl 0.9% 1000 Ml Iv Soln 30 ml/kg infuse over 4 hr (1770 ml) 07/05/19 01:50 442.5 mls/hr IV Administration BOLUS ONE Iron Sucrose 100 mg 07/05/19 04:20 07/05/19 05:31 Venofer Inj/Pf 100 Mg/5 Ml Sdv IV 07/05/19 04:21 100 mg NOW ONE Administration Lorazepam 0.5 mg 07/04/19 22:09 07/04/19 22:47 Ativan Inj 2 Mg/1 Ml Vial IV 07/04/19 22:10 0.5 mg NOW ONE Administration Piperacillin Sod/Tazobactam Sod 4.5 gm 07/04/19 21:51 07/04/19 22:31 Zosyn Inj 4.5 Gm Vial IV 07/04/19 21:52 4.5 gm IVBAG (ED) ONE Administration Vancomycin HCl 1,000 mg 07/04/19 21:51 07/04/19 23:08 Vancocin Inj 1000 Mg Vial IV 07/04/19 21:52 1,000 mg IVBAG (ED) ONE Administration Assessment & Plan - Diagnosis (1) Elevated troponin Plan: Very unfortunate 69-year-old female who is critically ill with significant pneumonia probably viral in etiology. She has a mildly elevated troponin which is actually trending down and likely secondary to demand mismatch given her acute illness which is also complicated by hypoxemia and severe anemia therefore it is possible that she has a type II myocardial infarction although, given her cardiac risk factors, obstructive coronary artery disease continues to be in the differential although I do not believe this is the mechanism of her elevated troponin. She also has an elevated proBNP and dilated RV on CT scan which is consistent with right heart failure likely secondary to suspected pulmonary hypertension from her COPD and current pneumonia as well as hypoxemia. During my visual interview she was noted to be in respiratory distress therefore I believe she should be transferred to the intensive care unit where at least she can be treated initially with BiPAP. As far as her cardiovascular issues go, I recommend supportive and medical management at this point as well as blood t ransfusion. I would hold off on getting an echocardiogram at this point given the possibility that she may have COVID-19 and that the results of the echocardiogram really will not change any treatment at this point. We will continue to follow the patient with you.
[2019-07-05] MEDS ORDERED: ALBUTEROL SULFATE 0.083% NEB 2.5 MG/3 ML AMPUL NEB ONE (09:00)
[2019-07-05 09:01] LABS: ARTERIAL BLOOD H2CO3 1.03 mmol/L (1.05-1.35); ARTERIAL BLOOD HCO3 17.3 mmol/L (20-24); ARTERIAL BLOOD O2 SATURATION 98.4 % (94-98); ARTERIAL BLOOD PCO2 34.2 mmHg (35-45); ARTERIAL BLOOD PH 7.32 (7.35-7.45); ARTERIAL BLOOD PO2 128.1 mmHg (80-100); ARTERIAL BLOOD TOTAL CO2 18.3 mmol/L (21-25)
[2019-07-05 09:04] LABS: ARTERIAL BLOOD FIO2 100%
--- NOTE | 2019-07-05 09:26 | RADIOLOGY REPORT (SQ) ---
EXAM DESCRIPTION: CHEST SINGLE VIEW IMAGES COMPLETED DATE/TIME: 07/05/2019 9:13 am REASON FOR STUDY: hypoxia COMPARISON: None. EXAM PARAMETERS: NUMBER OF VIEWS: One view. TECHNIQUE: Single frontal radiographic view of the chest acquired. RADIATION DOSE: NA LIMITATIONS: None. FINDINGS: LUNGS AND PLEURA: Diffuse bilateral interstitial opacities with mildly increased more foca l bibasilar opacities. Small bilateral effusions. No pneumothorax. MEDIASTINUM AND HILAR STRUCTURES: No masses. Contour normal. HEART AND VASCULAR STRUCTURES: Enlarged, stable. Perihilar opacities. No discrete mass. BONES: No acute findings. HARDWARE: Right-sided chest port with catheter tip at cavoatrial junction. OTHER: No other significant finding. IMPRESSION: Persistent diffuse bilateral interstitial opacities with mildly increased bibasilar opac ities and small bilateral effusions suggestive of edema. Superimposed infection is not excluded. TECHNICAL DOCUMENTATION: JOB ID: [id number] [employer]- All Rights Reserved Reading location - IP/workstation name: [email or web address]
[2019-07-05 09:29] LABS: C-REACTIVE PROTEIN 353.6 mg/L (<10.0)
--- NOTE | 2019-07-05 10:26 | Progress Note ---
Provider Note Provider Note: Early this morning received phone call from Dr. Stone in a few moments later from nursing; both concerned about respiratory distress. The patient was requiring increased levels of oxygen support; on 6 L by nasal cannula was maintaining saturations in the high 80s with rest and rapidly desaturates to the 70s with minimal activity. She is also noted to be tachypneic with respiratory rate in the high 20s to 30s with 2-3 word tachypnea, retractions, and audible wheezing. She was therefore transitioned to nonrebreather. On my arrival, ABG had been obtained showing pH 7.32, PCO2 34.2, PO2 128, HCO3 17.3 on 100% FiO2. Chest x-ray has not yet been read but does show worsening compared to yesterday. My exam was consistent with above. Patient reports that upon arrival to home, she immediately began feeling unwell. She reports she has been having fevers, does not recall temperature, and essentially bedbound due to generalized weakness/fatigue, has had poor appetite, and worsening shortness of breath. She does admit that she only took 2 doses of her antibiotic (Augmentin) because she could not recall what this was for. Patient was discussed with Dr. Sawant. Dr. Sawant kindly reviewed the patient's history, imaging, and laboratory results. He relates that the patient does appear to be at risk for developing ARDS. As her COVID risk is low (lives alone, no travel, no known exposure); recommends BiPAP. Per Dr. Sawant patient will not be accepted to the ICU until more appropriate interventions (namely NIV). Dr. Sawant states he will be readily available for assistance as needed. BiPAP and follow up ABG have been ordered. Patient reviewed with Dr. Astudillo.
[2019-07-05] MEDS: ALBUTEROL SULFATE 0.083% NEB 2.5 MG/3 ML AMPUL NEB SCH ×3 (12:15→21:29)
--- NOTE | 2019-07-05 12:18 | XCELERA REPORT ---
[address] [address] Transthoracic Echocardiogram Report Name: DONALD ALBRIGHT Age: 69 yrs Gender: Female : 1950 Patient Status: [facility]: 07/05/2019 09:11 AM Height: 66 in Weight: 137 lb BSA: 1.7 m2 Reason For Study: systolic murmur Ordering Physician: ARIANNA BULL Performed By: Rochelle Encarnacion Interpretation Summary Technically difficult study due to pt. being uncooperative. Limited subcostals because pt. kept pushing probe away. The left ventricle is grossly normal size. Left ventricular systolic function is normal. The Ejection Fraction estimate is 65-70%. Doppler measurements suggest impaired left ventricular relaxation, which is associated with grade I/IV or mild diastolic dysfunction. The left ventricular wall motion is normal. The right atrium is mildly dilated. Trace to mild MR, trace to mild TR. Minimal, hemodynamically insignificant anterior pericardial effusion. No prior studies for comparison. MMode/2D Measurements & Calculations RVDd: 2.2 cm LVIDd: 4.6 cm FS: 38.7 % Ao root diam: 2.6 cm IVSd: 0.92 cm LVIDs: 2.8 cm EDV(Teich): 98.5 ml LVPWd: 1.1 cm ESV(Teich): 30.5 ml Ao root area: 5.5 cm2 EF(Teich): 69.1 % Doppler Measurements & Calculations MV E max niru: MV dec slope: Ao V2 max: LV V1 max P.4 cm/sec 662.3 cm/sec2 199.5 cm/sec 10.4 mmHg MV A max niru: MV dec time: 0.14 secAo max PG: LV V1 max: 116.5 cm/sec 15.9 mmHg 160.9 cm/sec MV E/A: 0.82 PA V2 max: TR max niru: 100.5 cm/sec 293.1 cm/sec PA max P.0 mmHg TR max P.4 mmHg Left Ventricle The left ventricle is grossly normal size. Left ventricular systolic function is normal. The Ejection Fraction estimate is 65-70%. Doppler measurements suggest impaired left ventricular relaxation, which is associated with grade I/IV or mild diastolic dysfunction. The left ventricular wall motion is normal. Right Ventricle The right ventricle is normal in size, thickness and function. The right ventricular systolic function is borderline reduced. Atria The right atrium is mildly dilated. The left atrial size is normal. There is no Doppler evidence for an interatrial shunt. Mitral Valve The mitral valve is normal in structure and function. There is no evidence of mitral valve prolapse. There is no mitral valve stenosis. There is a trace to mild amount of mitral regurgitation. Aortic Valve The aortic valve is not well visualized secondary to technical limitations. There is no aortic valve stenosis. No aortic regurgitation is present. Tricuspid Valve The tricuspid is normal in structure and function. There is a trace to mild amount of tricuspid regurgitation. Pulmonic Valve The pulmonic valve is not well visualized. Effusions Minimal, hemodynamically insignificant anterior pericardial effusion. : ARIANNA BULL Antonio
[2019-07-05] MEDS ORDERED: LORAZEPAM INJ 2 MG/1 ML VIAL IV ONE (13:00)
--- NOTE | 2019-07-05 13:24 | CDI QUERY ---
CDI Query CDI Review: Dear Provider: To better reflect your patients severity of illness, morbidity, and resource utilization Please specify and document in the Progress Notes and Discharge Summary if you are monitoring / treating / evaluating any of the following conditions: Query Clinical indicators Please clarify if this patient had / has: Sepsis Severe Sepsis with septic shock Severe Sepsis without septic shock Unable to determine Sepsis ruled out Please clarify and document if the pneumonia can be further specified: Aspiration pneumonia Viral pneumonia Fungal pneumonia Unable to determine Other Per ED nptes: She reports that she had a temperature of 103 yesterday PER H&P: In the emergency department she is found to have sepsis with hypotension, fever, leukocytosis, elevated troponin. CT reveals moderate bilateral pleural effusions and extensive ground glass opacity. Temp 99.4 Pulse 84 Resp 19 BP 93/52 Pulse Ox 88 WBC 15.5 Throat culture: C. albicans / C. dubliniensis Per Cardiology Consult note: Very unfortunate 69-year-old female who is critically ill with significant pneumonia probably viral in etiology The terms probable, suspected, likely, possible or still to be ruled out may be used if you are unable to determine the exact nature of a condition. Thank you for your consideration, Clinical Documentation Physician Advisors SALMA Smith RN, BSN RN Office [phone] Office [phone]
[2019-07-05] MEDS ORDERED: FUROSEMIDE INJ/PF 20 MG/2 ML SDV IV PRN (13:26)
[2019-07-05] MEDS: CEFEPIME HCL 2 GM in DEXTROSE 5%-WATER 50 ML IV SCH ×2 (13:56→21:20)
[2019-07-05] MEDS ORDERED: FUROSEMIDE INJ/PF 20 MG/2 ML SDV IV ONE (14:30)
[2019-07-05 14:48] LABS: ARTERIAL BLOOD BASE EXCESS -6.4 mmol/L; ARTERIAL BLOOD H2CO3 1.09 mmol/L (1.05-1.35); ARTERIAL BLOOD HCO3 18.8 mmol/L (20-24); ARTERIAL BLOOD O2 SATURATION 98.1 % (94-98); ARTERIAL BLOOD PCO2 36.2 mmHg (35-45); ARTERIAL BLOOD PH 7.33 (7.35-7.45); ARTERIAL BLOOD TOTAL CO2 19.9 mmol/L (21-25)
[2019-07-05 14:54] LABS: ARTERIAL BLOOD FIO2 50%
[2019-07-05 14:55] LABS: APPEARANCE,URINE CLEAR; BILIRUBIN,URINE NEGATIVE (NEGATIVE); COLOR,URINE YELLOW; GLUCOSE, URINE NEGATIVE (NEGATIVE); KETONES,URINE TRACE mg/dL (NEGATIVE); LEUKOCYTE ESTERASE,URINE NEGATIVE (NEGATIVE); NITRITE,URINE NEGATIVE (NEGATIVE); PROTEIN,URINE 30 mg/dL (NEGATIVE); URINE SPECIFIC GRAVITY 1.028; UROBILINOGEN,URINE NEGATIVE mg/dL (<2.0)
[2019-07-05 15:12] LABS: URINE AMPHETAMINES SCREEN NEGATIVE; URINE BARBITURATES SCREEN NEGATIVE; URINE BENZODIAZEPINES SCREEN NEGATIVE; URINE COCAINE SCREEN NEGATIVE; URINE MARIJUANA (THC) SCREEN NEGATIVE; URINE METHADONE SCREEN NEGATIVE; URINE PHENCYCLIDINE SCREEN NEGATIVE
[2019-07-05 15:55] LABS: CREATINE KINASE MB 1.89 ng/mL (<4.55)
[2019-07-05 16:01] LABS: TROPONIN I 0.185 ng/mL
[2019-07-05] MEDS ORDERED: ACETAMINOPHEN 325 MG SUPP.RECT PR PRN (17:06)
[2019-07-05] MEDS ORDERED: LORAZEPAM INJ 2 MG/1 ML VIAL IV PRN (17:06)
[2019-07-05] MEDS ORDERED: NICOTINE 7 MG/24 HR PATCH.TD24 TD PRN (17:25)
[2019-07-05] MEDS: VANCOMYCIN HCL 1,250 MG in DEXTROSE 5%-WATER 250 ML IV SCH (18:20)
--- NOTE | 2019-07-05 19:37 | PDOC PROGRESS REPORT ---
Subjective Progress Note for:: 07/05/19 Subjective:: DONALD ALBRIGHT is a 69 year old female with a past medical history of complicated Crohn's disease with colostomy, depression, anxiety, COPD with bronchitis, and tobacco dependence. Patient was discharged 72 hours ago after treatment of acute pancreatitis, COPD exacerbation and acute on chronic bronchitis. Patient was readmitted 07/04/2019 with sepsis secondary to healthcare associated pneumonia. Patient was seen early on morning rounds and then several times throughout the day. Initially, she was found to be in respiratory distress, however, this improved with BiPAP support. She does endorse difficulty breathing, orthopnea, nonproductive cough, abdominal discomfort. She is running a low-grade temperature. She specifically denies chest pain and palpitations. Clinical progress and plan of care was updated with nursing throughout the day. Reason For Visit: PNEUMONIA,NSTEMI (NON-ST ELEVATED MYOCARDIAL Physical Exam Vital Signs: Temp Pulse Resp BP Pulse Ox 99.8 F 82 32 H 119/54 L 98 07/05/19 18:16 07/05/19 18:16 07/05/19 18:16 07/05/19 18:16 07/05/19 18:16 Intake & Output 07/04/19 07/05/19 07/06/19 06:59 06:59 06:59 Intake Total 1000 520 Output Total 1250 Balance 1000 -730 Weight 59.3 kg General appearance: PRESENT: cooperative, severe distress - Improved after BiPAP placement, thin, well-developed, well-nourished Head exam: PRESENT: atraumatic, normocephalic Eye exam: PRESENT: conjunctiva pink, EOMI, PERRLA. ABSENT: scleral icterus Mouth exam: PRESENT: moist, tongue midline Respiratory exam: PRESENT: rhonchi, tachypnea, wheezes, other - Improved on Bipap. ABSENT: rales, unlabored Cardiovascular exam: PRESENT: RRR. ABSENT: diastolic murmur, rubs, systolic murmur Pulses: PRESENT: normal dorsalis pedis pul Vascular exam: PRESENT: normal capillary refill GI/Abdominal exam: PRESENT: normal bowel sounds, soft, other - ileostomy with dark/green liquid output. ABSENT: distended, guarding, mass, organolmegaly, rebound, tenderness Rectal exam: PRESENT: deferred Extremities exam: PRESENT: full ROM. ABSENT: calf tenderness, clubbing, pedal edema Neurological exam: PRESENT: alert, awake, oriented to person, oriented to place, oriented to time, oriented to situation, CN II-XII grossly intact. ABSENT: motor sensory deficit Psychiatric exam: PRESENT: anxious, normal mood. ABSENT: homicidal ideation, suicidal ideation Skin exam: PRESENT: dry, intact, warm. ABSENT: cyanosis, rash Results Laboratory Results: 07/05/19 05:17 07/05/19 05:17 07/04/19 07/04/19 07/04/19 18:22 18:22 18:22 WBC 15.5 H RBC 2.61 L Hgb 8.5 L Hct 25.0 L MCV 96 MCH 32.5 MCHC 33.9 RDW 15.9 H Plt Count 191 Seg Neutrophils % Not Reportable Retic Count (auto) Carbonic Acid HCO3/H2CO3 Ratio ABG pH ABG pCO2 ABG pO2 ABG HCO3 ABG O2 Saturation ABG Base Excess VBG pH 7.25 L VBG pCO2 42.5 VBG HCO3 18.1 L VBG Base Excess -8.8 FiO2 Sodium Potassium Chloride Carbon Dioxide Anion Gap BUN Creatinine Est GFR ( Amer) Glucose Lactic Acid 1.0 Calcium Iron TIBC % Saturation Ferritin Total Bilirubin AST Alkaline Phosphatase C-Reactive Protein Total Protein Albumin Lipase Vitamin B12 Folate Urine Color Urine Appearance Urine pH Ur Specific [place] Urine Protein Urine Glucose (UA) Urine Ketones Urine Blood Urine Nitrite Ur Leukocyte Esterase Urine WBC (Auto) Urine RBC (Auto) Blood Type Antibody Screen 07/04/19 07/04/19 07/05/19 18:22 18:22 00:53 WBC RBC Hgb Hct MCV MCH MCHC RDW Plt Count Seg Neutrophils % Retic Count (auto) 1.77 Carbonic Acid HCO3/H2CO3 Ratio ABG pH ABG pCO2 ABG pO2 ABG HCO3 ABG O2 Saturation ABG Base Excess VBG pH VBG pCO2 VBG HCO3 VBG Base Excess FiO2 Sodium 134.2 L Potassium 3.7 Chloride 107 Carbon Dioxide 18 L Anion Gap 9 BUN 14 Creatinine 1.11 Est GFR ( Amer) 59 L Glucose 100 Lactic Acid Calcium 8.5 Iron TIBC % Saturation Ferritin Total Bilirubin 0.5 AST 20 Alkaline Phosphatase 96 C-Reactive Protein Total Protein 5.3 L Albumin 2.7 L Lipase 293.8 Vitamin B12 Folate Urine Color Urine Appearance Urine pH Ur Specific [place] Urine Protein Urine Glucose (UA) Urine Ketones Urine Blood Urine Nitrite Ur Leukocyte Esterase Urine WBC (Auto) Urine RBC (Auto) Blood Type Antibody Screen 07/05/19 07/05/19 07/05/19 00:53 05:17 05:17 WBC 12.4 H RBC 2.35 L Hgb 7.7 L Hct 22.4 L MCV 95 MCH 32.7 MCHC 34.4 RDW 15.5 H Plt Count 206 Seg Neutrophils % 87.1 H Retic Count (auto) Carbonic Acid HCO3/H2CO3 Ratio ABG pH ABG pCO2 ABG pO2 ABG HCO3 ABG O2 Saturation ABG Base Excess VBG pH VBG pCO2 VBG HCO3 VBG Base Excess FiO2 Sodium 136.7 L Potassium 3.6 Chloride 111 H Carbon Dioxide 16 L Anion Gap 10 BUN 14 Creatinine 0.94 Est GFR ( Amer) > 60 Glucose 95 Lactic Acid Calcium 7.9 L Iron 30.1 L TIBC 255 % Saturation 12 Ferritin 119.00 Total Bilirubin AST Alkaline Phosphatase C-Reactive Protein Total Protein Albumin Lipase Vitamin B12 871.0 Folate 19.90 Urine Color Urine Appearance Urine pH Ur Specific [place] Urine Protein Urine Glucose (UA) Urine Ketones Urine Blood Urine Nitrite Ur Leukocyte Esterase Urine WBC (Auto) Urine RBC (Auto) Blood Type Antibody Screen 07/05/19 07/05/19 07/05/19 05:17 05:35 08:48 WBC RBC Hgb Hct MCV MCH MCHC RDW Plt Count Seg Neutrophils % Retic Count (auto) Carbonic Acid 1.03 L HCO3/H2CO3 Ratio 16:1 ABG pH 7.32 L ABG pCO2 34.2 L ABG pO2 128.1 H ABG HCO3 17.3 L ABG O2 Saturation 98.4 H ABG Base Excess -8.0 VBG pH VBG pCO2 VBG HCO3 VBG Base Excess FiO2 100% Sodium Potassium Chloride Carbon Dioxide Anion Gap BUN Creatinine Est GFR ( Amer) Glucose Lactic Acid Calcium Iron TIBC % Saturation Ferritin 128.00 Total Bilirubin AST Alkaline Phosphatase C-Reactive Protein 353.6 H Total Protein Albumin Lipase Vitamin B12 Folate Urine Color Urine Appearance Urine pH Ur Specific [place] Urine Protein Urine Glucose (UA) Urine Ketones Urine Blood Urine Nitrite Ur Leukocyte Esterase Urine WBC (Auto) Urine RBC (Auto) Blood Type A POSITIVE Antibody Screen NEGATIVE 07/05/19 07/05/19 07/05/19 14:00 14:20 15:11 WBC RBC Hgb Hct MCV MCH MCHC RDW Plt Count Seg Neutrophils % Retic Count (auto) Carbonic Acid 1.09 HCO3/H2CO3 Ratio 17:1 ABG pH 7.33 L ABG pCO2 36.2 ABG pO2 119.0 H ABG HCO3 18.8 L ABG O2 Saturation 98.1 H ABG Base Excess -6.4 VBG pH VBG pCO2 VBG HCO3 VBG Base Excess FiO2 50% Sodium Potassium Chloride Carbon Dioxide Anion Gap BUN Creatinine Est GFR ( Amer) Glucose Lactic Acid 0.9 Calcium Iron TIBC % Saturation Ferritin Total Bilirubin AST Alkaline Phosphatase C-Reactive Protein Total Protein Albumin Lipase Vitamin B12 Folate Urine Color YELLOW Urine Appearance CLEAR Urine pH 6.0 Ur Specific [place] 1.028 Urine Protein 30 H Urine Glucose (UA) NEGATIVE Urine Ketones TRACE H Urine Blood SMALL H Urine Nitrite NEGATIVE Ur Leukocyte Esterase NEGATIVE Urine WBC (Auto) 2 Urine RBC (Auto) 0 Blood Type Antibody Screen 07/04/19 18:22 Throat Throat Culture - Final C.albicans/C.dubliniensis Normal Anne Marie Absent 07/04/19 07/04/19 07/05/19 18:22 18:22 00:53 Creatine Kinase 45 CK-MB (CK-2) 2.59 Troponin I 0.204 NT-Pro-B Natriuret Pep [id number] H 07/05/19 07/05/19 07/05/19 00:53 00:53 05:17 Creatine Kinase 33 41 CK-MB (CK-2) 2.13 Troponin I 0.246 NT-Pro-B Natriuret Pep 07/05/19 07/05/19 07/05/19 05:17 15:11 15:11 Creatine Kinase 33 CK-MB (CK-2) 2.95 1.89 Troponin I 0.192 0.185 NT-Pro-B Natriuret Pep Impressions: Chest X-Ray 07/05/19 00:00 IMPRESSION: Persistent diffuse bilateral interstitial opacities with mildly increased bibasilar opacities and small bilateral effusions suggestive of edema. Superimposed infection is not excluded. Assessment and Plan - Diagnosis (1) Pneumonia Qualifiers: Pneumonia type: due to unspecified organism Laterality: bilateral Lung location: unspecified part of lung Qualified Code(s): J18.9 - Pneumonia, unspecified organism Is this a current diagnosis for this admission?: Yes Plan: Bloodcultures pending. Sputum cultures pending; have not been obtained COVID-19 testing pending. Patient is admitted to [facility] on continuous cardiac telemetry and pulse oximetry. Patient is provided supplemental oxygen as needed maintain saturations greater than 89%. Due to her worsening respiratory distress related to work of breathing/fatigue, the patient was trialed on HFNC, which provided only brief relief, and then placed on BiPAP. Her distress is significantly decreased while on BiPAP. Patient is empirically placed on vancomycin and cefepime Scheduled and as needed nebulizer treatments. She is placed on Robitussin as needed. Pulmonary toilet is encouraged with incentive spirometer, flutter valve, early ambulation. (2) Congestive heart failure Is this a current diagnosis for this admission?: Yes Plan: Cardiology was consulted. Echocardiogram revealed normal LV EF with some RV dysfunction. HFpEF is likely secondary to pulmonary infection and complicated by anemia; elevated troponin and CHF exacerbation secondary to demand related ischemia. Discussed with Dr. Stone for seeing this morning again in the afternoon when he came to the bedside to follow-up on her clinical status. Per Dr. Stone patient would benefit from gentle diuresis. We will provide IV furosemide before and after her blood transfusion today and continue with daily low-dose furosemide as clinically indicated. We will monitor daily weights and strict I&O's. Her respiratory status dictates that she is n.p.o. at this time; will plan to advance to cardiac when appropriate. (3) Elevated troponin Is this a current diagnosis for this admission?: Yes Plan: Trending down. Patient confirms that she is chest pain-free; denies palpitations. Cardiology is consulted. Appreciate Dr. Stone's assistance. Elevated troponin represents demand mismatch ischemia related to her acute respiratory failure/distress as a consequence of her multifocal pneumonia. Aspirin currently on hold well correcting for anemia. Continuing full dose Lovenox; may de-escalate once the patient's COVID 19 test results. (4) Anemia Qualifiers: Anemia type: other cause Is this a current diagnosis for this admission?: Yes Plan: Patient with history of chronic anemia. Baseline hemoglobin of 8.5. She trended down to 7.7; partially related to hemodilution after receiving IV fluids for sepsis. As the patient is in respiratory distress with initial concern for non-STEMI, she was transfused 1 unit PRBC. Follow-up lab pending. Aspirin is placed on hold. We will continue full dose Lovenox at this time; nursing is asked to watch closely for evidence of bleeding. (5) COPD (chronic obstructive pulmonary disease) Qualifiers: COPD type: unspecified COPD Qualified Code(s): J44.9 - Chronic obstructive pulmonary disease, unspecified Is this a current diagnosis for this admission?: Yes Plan: Supplemental oxygen, flutter valve, incentive spirometry. Albuterol and [place] nt. No indications for steroid therapy at this time. Remaining management as above. (6) Sepsis due to pneumonia Is this a current diagnosis for this admission?: Yes Plan: Patient presented to the emergency department with sepsis without shock secondary to healthcare associated pneumonia. She received appropriate IV fluid resuscitation followed by 1 unit PRBC. Blood culture, sputum culture, urine culture, stool culture pending. COVID-19 testing pending. Antibiotics as above. - Time Time Spent with patient: 35 or more minutes Medications reviewed and adjusted accordingly: Yes
[2019-07-05] MEDS: GABAPENTIN 300 MG CAPSULE PO SCH (21:19)
[2019-07-05] MEDS: BUSPIRONE HCL 10 MG TABLET PO SCH (21:19)
[2019-07-05] MEDS: TRAZODONE HCL 50 MG TABLET PO SCH (21:19)
[2019-07-05] MEDS: ROPINIROLE HCL 1 MG TABLET PO SCH (21:20)
[2019-07-05] MEDS: MELATONIN 3 MG TABLET PO SCH (21:20)
[2019-07-05 21:57] LABS: HEMATOCRIT 26.8 % (36.0-47.0); HEMOGLOBIN 9.3 g/dL (12.0-15.5); MEAN CORPUSCULAR HEMOGLOBIN 31.6 pg (27.0-33.4); MEAN CORPUSCULAR HGB CONC 34.6 g/dL (32.0-36.0); MEAN CORPUSCULAR VOLUME 92 fl (80-97); PLATELET COUNT 210 10^3/uL (150-450); RED BLOOD COUNT 2.93 10^6/uL (3.72-5.28); RED CELL DISTRIBUTION WIDTH 15.1 % (11.5-14.0); WHITE BLOOD COUNT 12.1 10^3/uL (4.0-10.5)
[2019-07-06] MEDS: ALBUTEROL SULFATE 0.083% NEB 2.5 MG/3 ML AMPUL NEB SCH ×3 (00:17→10:36)
[2019-07-06] MEDS: GABAPENTIN 300 MG CAPSULE PO SCH ×3 (05:25→21:13)
[2019-07-06 08:29] LABS: HEMATOCRIT 28.4 % (36.0-47.0); HEMOGLOBIN 10.1 g/dL (12.0-15.5); MEAN CORPUSCULAR HEMOGLOBIN 32.6 pg (27.0-33.4); MEAN CORPUSCULAR HGB CONC 35.6 g/dL (32.0-36.0); MEAN CORPUSCULAR VOLUME 92 fl (80-97); PLATELET COUNT 229 10^3/uL (150-450); RED BLOOD COUNT 3.09 10^6/uL (3.72-5.28); RED CELL DISTRIBUTION WIDTH 15.3 % (11.5-14.0); WHITE BLOOD COUNT 9.9 10^3/uL (4.0-10.5)
[2019-07-06 08:38] LABS: ALBUMIN 2.5 g/dL (3.5-5.0); ALKALINE PHOSPHATASE 85 U/L (38-126); ANION GAP 10 (5-19); ASPARTATE AMINO TRANSFERASE 18 U/L (14-36); BILIRUBIN,DIRECT 0.1 mg/dL (0.0-0.4); BILIRUBIN,TOTAL 0.5 mg/dL (0.2-1.3); BLOOD UREA NITROGEN 20 mg/dL (7-20); CALCIUM 8.3 mg/dL (8.4-10.2); CARBON DIOXIDE 20 mmol/L (22-30); CHLORIDE 107 mmol/L (98-107); GLUCOSE 93 mg/dL (75-110); TOTAL PROTEIN 5.1 g/dL (6.3-8.2)
[2019-07-06 08:42] LABS: POTASSIUM 2.8 mmol/L (3.6-5.0)
[2019-07-06 08:49] LABS: ABSOLUTE MONOCYTES # (MANUAL) 0.7 10^3/uL (0.1-1.4); BASOPHILS % (MANUAL) 0 % (0-2); EOSINOPHILS % (MANUAL) 1 % (0-6); LYMPHOCYTES % (MANUAL) 10 % (13-45); MONOCYTES % (MANUAL) 7 % (3-13); SEGMENTED NEUTROPHILS % (MAN) 82 % (42-78); TOTAL CELLS COUNTED 100
[2019-07-06 08:50] LABS: ANISOCYTOSIS 1+
[2019-07-06 08:51] LABS: PLATELET COMMENT ADEQUATE; POLYCHROMASIA SLIGHT
[2019-07-06] MEDS ORDERED: LORAZEPAM INJ 2 MG/1 ML VIAL IV ONE (10:00)
--- NOTE | 2019-07-06 10:08 | PDOC PROGRESS REPORT ---
Subjective Progress Note for:: 07/06/19 Subjective:: DONALD ALBRIGHT is a 69 year old female with history of complicated Crohn's disease including a total colectomy and ileostomy, depression, tobacco abuse and COPD who is consulted to our service for further evaluation of elevated troponin. The patient was recently admitted to this facility for acute pancreatitis and was just discharged [facility] on 07/01/2019. Her chest x-ray at that time demonstrated the possibility of a developing pneumonia along with trace bilateral pleural effusions. She was discharged on p.o. antibiotics but unfortunately she developed significant shortness of breath and increased work of breathing therefore she came to the emergency room for further evaluation. She specifically denies all cardiac history such as amina cardial infarction, angina, angina equivalents, lower extremity edema, palpitations as well as heart failure. She is currently admitted to an isolation room due to suspected coronavirus therefore a virtual consult using a WebCam and oboxo system was used to interview the patient, no physical exam was possible. During the virtual interview the patient is noted to be in respiratory distress and complaining of severe shortness of breath. She denies chest pain as well as other anginal equivalents. 07/06/19: The patient is asleep this morning and, although no significant events overnight, she appears to have an increased work of breathing off of BiPAP. No physical exam was possible today as her COVID-19 test is still pending and she remains on isolation. Reason For Visit: PNEUMONIA,NSTEMI (NON-ST ELEVATED MYOCARDIAL Physical Exam Vital Signs: Temp Pulse Resp BP Pulse Ox 98.4 F 72 16 124/56 L 98 07/06/19 07:27 07/06/19 07:27 07/06/19 07:27 07/06/19 07:27 07/06/19 07:27 Intake & Output 07/05/19 07/06/19 07/07/19 06:59 06:59 06:59 Intake Total 1000 1000 300 Output Total 3525 Balance 1000 -2525 300 Weight 59.3 kg 61 kg Results Laboratory Results: 07/06/19 08:06 07/06/19 08:06 07/05/19 07/05/19 07/05/19 05:17 05:35 14:00 WBC RBC Hgb Hct MCV MCH MCHC RDW Plt Count Seg Neutrophils % Carbonic Acid HCO3/H2CO3 Ratio ABG pH ABG pCO2 ABG pO2 ABG HCO3 ABG O2 Saturation ABG Base Excess FiO2 Sodium Potassium Chloride Carbon Dioxide Anion Gap BUN Creatinine Est GFR ( Amer) Glucose Lactic Acid Calcium Ferritin 128.00 Total Bilirubin AST Alkaline Phosphatase C-Reactive Protein 353.6 H Total Protein Albumin Urine Color YELLOW Urine Appearance CLEAR Urine pH 6.0 Ur Specific [place] 1.028 Urine Protein 30 H Urine Glucose (UA) NEGATIVE Urine Ketones TRACE H Urine Blood SMALL H Urine Nitrite NEGATIVE Ur Leukocyte Esterase NEGATIVE Urine WBC (Auto) 2 Urine RBC (Auto) 0 Stool Occult Blood Blood Type A POSITIVE Antibody Screen NEGATIVE 07/05/19 07/05/19 07/05/19 14:20 15:11 21:18 WBC 12.1 H RBC 2.93 L Hgb 9.3 L Hct 26.8 L MCV 92 MCH 31.6 MCHC 34.6 RDW 15.1 H Plt Count 210 Seg Neutrophils % Carbonic Acid 1.09 HCO3/H2CO3 Ratio 17:1 ABG pH 7.33 L ABG pCO2 36.2 ABG pO2 119.0 H ABG HCO3 18.8 L ABG O2 Saturation 98.1 H ABG Base Excess -6.4 FiO2 50% Sodium Potassium Chloride Carbon Dioxide Anion Gap BUN Creatinine Est GFR ( Amer) Glucose Lactic Acid 0.9 Calcium Ferritin Total Bilirubin AST Alkaline Phosphatase C-Reactive Protein Total Protein Albumin Urine Color Urine Appearance Urine pH Ur Specific [place] Urine Protein Urine Glucose (UA) Urine Ketones Urine Blood Urine Nitrite Ur Leukocyte Esterase Urine WBC (Auto) Urine RBC (Auto) Stool Occult Blood Blood Type Antibody Screen 07/06/19 07/06/19 07/06/19 03:21 08:06 08:06 WBC 9.9 RBC 3.09 L Hgb 10.1 L Hct 28.4 L MCV 92 MCH 32.6 MCHC 35.6 RDW 15.3 H Plt Count 229 Seg Neutrophils % Not Reportable Carbonic Acid HCO3/H2CO3 Ratio ABG pH ABG pCO2 ABG pO2 ABG HCO3 ABG O2 Saturation ABG Base Excess FiO2 Sodium 137.2 Potassium 2.8 L* Chloride 107 Carbon Dioxide 20 L Anion Gap 10 BUN 20 Creatinine 0.85 Est GFR ( Amer) > 60 Glucose 93 Lactic Acid Calcium 8.3 L Ferritin Total Bilirubin 0.5 AST 18 Alkaline Phosphatase 85 C-Reactive Protein Total Protein 5.1 L Albumin 2.5 L Urine Color Urine Appearance Urine pH Ur Specific [place] Urine Protein Urine Glucose (UA) Urine Ketones Urine Blood Urine Nitrite Ur Leukocyte Esterase Urine WBC (Auto) Urine RBC (Auto) Stool Occult Blood NEGATIVE Blood Type Antibody Screen 07/04/19 18:22 Throat Throat Culture - Final C.albicans/C.dubliniensis Normal Anne Marie Absent 07/04/19 07/04/19 07/05/19 18:22 18:22 00:53 Creatine Kinase 45 CK-MB (CK-2) 2.59 Troponin I 0.204 NT-Pro-B Natriuret Pep 89665 H 07/05/19 07/05/19 07/05/19 00:53 00:53 05:17 Creatine Kinase 33 41 CK-MB (CK-2) 2.13 Troponin I 0.246 NT-Pro-B Natriuret Pep 07/05/19 07/05/19 07/05/19 05:17 15:11 15:11 Creatine Kinase 33 CK-MB (CK-2) 2.95 1.89 Troponin I 0.192 0.185 NT-Pro-B Natriuret Pep Impressions: Chest X-Ray 07/05/19 00:00 IMPRESSION: Persistent diffuse bilateral interstitial opacities with mildly increased bibasilar opacities and small bilateral effusions suggestive of edema. Superimposed infection is not excluded. 07/06/19 08:06 07/06/19 08:06 MCV 92 fl (80-97) 07/06/19 08:06 MCH 32.6 pg (27.0-33.4) 07/06/19 08:06 MCHC 35.6 g/dL (32.0-36.0) 07/06/19 08:06 RDW 15.3 % (11.5-14.0) H 07/06/19 08:06 Seg Neutrophils % Not Reportable 07/06/19 08:06 Retic Count (auto) 1.77 % (0.66-2.85) 07/05/19 00:53 Carbonic Acid 1.09 mmol/L (1.05-1.35) 07/05/19 14:20 HCO3/H2CO3 Ratio 17:1 07/05/19 14:20 ABG pH 7.33 (7.35-7.45) L 07/05/19 14:20 ABG pCO2 36.2 mmHg (35-45) 07/05/19 14:20 ABG pO2 119.0 mmHg (80-100) H 07/05/19 14:20 ABG HCO3 18.8 mmol/L (20-24) L 07/05/19 14:20 ABG O2 Saturation 98.1 % (94-98) H 07/05/19 14:20 ABG Base Excess -6.4 mmol/L 07/05/19 14:20 VBG pH 7.25 (7.30-7.42) L 07/04/19 18:22 VBG pCO2 42.5 mmHg (35-63) 07/04/19 18:22 VBG HCO3 18.1 mmol/L (20-32) L 07/04/19 18:22 VBG Base Excess -8.8 mmol/L 07/04/19 18:22 FiO2 50% 07/05/19 14:20 Chloride 107 mmol/L (98-107) 07/06/19 08:06 Carbon Dioxide 20 mmol/L (22-30) L 07/06/19 08:06 Anion Gap 10 (5-19) 07/06/19 08:06 Est GFR ( Amer) > 60 (>60) 07/06/19 08:06 Glucose 93 mg/dL (75-110) 07/06/19 08:06 Lactic Acid 0.9 mmol/L (0.7-2.1) 07/05/19 15:11 Calcium 8.3 mg/dL (8.4-10.2) L 07/06/19 08:06 Iron 30.1 ug/dL (37-170) L 07/05/19 00:53 TIBC 255 ug/dL (250-450) 07/05/19 00:53 % Saturation 12 % 07/05/19 00:53 Ferritin 128.00 ng/mL (11.1-264.0) 07/05/19 05:35 Total Bilirubin 0.5 mg/dL (0.2-1.3) 07/06/19 08:06 AST 18 U/L (14-36) 07/06/19 08:06 Alkaline Phosphatase 85 U/L (38-126) 07/06/19 08:06 C-Reactive Protein 353.6 mg/L (<10.0) H 07/05/19 05:35 Total Protein 5.1 g/dL (6.3-8.2) L 07/06/19 08:06 Albumin 2.5 g/dL (3.5-5.0) L 07/06/19 08:06 Lipase 293.8 U/L (23-300) 07/04/19 18:22 Vitamin B12 871.0 pg/mL (239-931) 07/05/19 00:53 Folate 19.90 ng/mL (>2.76) 07/05/19 00:53 Urine Color YELLOW 07/05/19 14:00 Urine Appearance CLEAR 07/05/19 14:00 Urine pH 6.0 (5.0-9.0) 07/05/19 14:00 Ur Specific [place] 1.028 07/05/19 14:00 Urine Protein 30 mg/dL (NEGATIVE) H 07/05/19 14:00 Urine Glucose (UA) NEGATIVE mg/dL (NEGATIVE) 07/05/19 14:00 Urine Ketones TRACE mg/dL (NEGATIVE) H 07/05/19 14:00 Urine Blood SMALL (NEGATIVE) H 07/05/19 14:00 Urine Nitrite NEGATIVE (NEGATIVE) 07/05/19 14:00 Ur Leukocyte Esterase NEGATIVE (NEGATIVE) 07/05/19 14:00 Urine WBC (Auto) 2 /HPF 07/05/19 14:00 Urine RBC (Auto) 0 /HPF 07/05/19 14:00 Stool Occult Blood NEGATIVE (NEGATIVE) 07/06/19 03:21 Blood Type A POSITIVE 07/05/19 05:17 Antibody Screen NEGATIVE 07/05/19 05:17 07/04/19 18:22 Throat Throat Culture - Final C.albicans/C.dubliniensis Normal Anne Marie Absent 07/04/19 07/04/19 07/05/19 18:22 18:22 00:53 Creatine Kinase 45 CK-MB (CK-2) 2.59 Troponin I 0.204 NT-Pro-B Natriuret Pep 65438 H 07/05/19 07/05/19 07/05/19 00:53 00:53 05:17 Creatine Kinase 33 41 CK-MB (CK-2) 2.13 Troponin I 0.246 NT-Pro-B Natriuret Pep 07/05/19 07/05/19 07/05/19 05:17 15:11 15:11 Creatine Kinase 33 CK-MB (CK-2) 2.95 1.89 Troponin I 0.192 0.185 NT-Pro-B Natriuret Pep Current Medication List Generic Name Dose Route Start Last Admin Trade Name Freq PRN Reason Stop Dose Admin Acetaminophen 650 mg 07/04/19 23:38 Tylenol 325 Mg Tablet PO 08/03/19 23:37 Q4HP PRN pain or temp greater than 101F Acetaminophen 650 mg 07/05/19 17:06 Tylenol 325 Mg Supp HI 08/04/19 17:05 Q4HP PRN FOR PAIN OR TEMP Albuterol 2.5 mg 07/05/19 12:00 07/06/19 05:00 Ventolin 0.083% Neb 2.5 Mg/3 Ml Ampul NEB 08/04/19 11:59 Not Given RTQ4 VALERIE Albuterol 2.5 mg 07/05/19 08:13 Ventolin 0.083% Neb 2.5 Mg/3 Ml Ampul NEB 08/04/19 08:12 RTQ2HP PRN SHORTNESS OF BREATH Albuterol/Ipratropium 3 ml 07/04/19 23:38 Duoneb 3 Ml Ampul NEB 08/03/19 23:37 [id number] PRN SHORTNESS OF BREATH Ascorbic Acid 1,000 mg 07/04/19 23:45 07/05/19 17:23 Vitamin C 500 Mg Tablet PO 08/03/19 23:44 Not Given BID VALERIE Buspirone HCl 15 mg 07/05/19 22:00 07/05/19 21:19 Buspar 10 Mg Tablet PO 08/04/19 21:59 15 mg Q12 VALERIE Administration Cetirizine HCl 10 mg 07/06/19 10:00 Zyrtec 10 Mg Tablet PO 08/05/19 09:59 DAILY [facility] Cholecalciferol 400 unit 07/04/19 23:45 07/05/19 13:55 Vitamin D3 400 Unit Tablet PO 08/03/19 23:44 Not Given DAILY [facility] Diphenoxylate HCl/Atropine 1 tab 07/05/19 17:25 Lomotil 2.5 Mg Tablet PO 07/12/19 17:24 QIDP PRN DIARRHEA Enoxaparin Sodium 60 mg 07/04/19 23:45 07/05/19 21:20 Lovenox Inj 60 Mg/0.6 Ml Disp.Syrin SUBCUT 08/03/19 23:44 60 mg Q12 VALERIE Administration Furosemide 10 mg 07/05/19 13:26 Lasix Inj/Pf 20 Mg/2 Ml Sdv IV 08/04/19 13:25 ONCEP PRN After PRBC unit has infused. Gabapentin 600 mg 07/05/19 22:00 07/06/19 05:25 Neurontin 300 Mg Capsule PO 08/04/19 21:59 600 mg Q8 VALERIE Administration Cefepime HCl 2 gm/ Dextrose 50 mls @ 100 mls/hr 07/05/19 10:00 07/06/19 07:00 IV 07/11/19 23:44 Infused Q12 VALERIE Infusion Vancomycin HCl 1,250 mg/ 250 mls @ 166.667 mls/hr 07/05/19 18:00 07/06/19 07:00 Dextrose IV 07/12/19 17:59 Infused QPM VALERIE Infusion Potassium Chloride/Water 20 meq in 50 mls @ 25 mls/hr 07/06/19 09:30 Potassium Chloride Janak 20 Meq/50 Ml IV 07/06/19 15:29 Q2H VALERIE Lorazepam 0.5 mg 07/06/19 10:00 Ativan Inj 2 Mg/1 Ml Vial IV 07/06/19 10:01 NOW ONE Melatonin 6 mg 07/05/19 22:00 07/05/19 21:20 Melatonin 3 Mg Tablet PO 08/04/19 21:59 6 mg QHS VALERIE Administration Nicotine 1 each 07/05/19 17:25 Nicoderm 7 Mg/24 Hr Transdermal Patch TD 08/04/19 17:24 DAILYP PRN SMOKING CESSATION Ropinirole HCl 1 mg 07/05/19 22:00 07/05/19 21:20 Requip 1 Mg Tablet PO 08/04/19 21:59 1 mg QHS VALERIE Administration Sodium Chloride 2.5 ml 07/05/19 06:00 07/06/19 05:37 Saline Flush 2.5 Ml Monoject Prefil Syrin IV 08/04/19 05:59 Not Given Q8 VALERIE Trazodone HCl 50 mg 07/05/19 22:00 07/05/19 21:19 Desyrel 50 Mg Tablet PO 08/04/19 21:59 50 mg QHS VALERIE Administration Zinc Sulfate 440 mg 07/04/19 23:45 07/05/19 13:56 Zinc-220 Capsule PO 08/03/19 23:44 Not Given DAILY VALERIE Discontinued Medications Generic Name Dose Route Start Last Admin Trade Name Christina PRN Reason Stop Dose Admin Acetaminophen 975 mg 07/04/19 18:22 07/04/19 18:52 Tylenol 325 Mg Tablet PO 07/04/19 18:23 975 mg NOW ONE Administration Albuterol 2.5 mg 07/05/19 09:00 07/05/19 12:15 Ventolin 0.083% Neb 2.5 Mg/3 Ml Ampul NEB 07/05/19 09:01 Not Given RTNOW ONE Aspirin 324 mg 07/04/19 22:41 07/04/19 22:56 Aspirin 81 Mg Chewable Tablet PO 07/04/19 22:42 324 mg NOW ONE Administration Aspirin 325 mg 07/04/19 23:45 07/05/19 13:55 Aspirin 325 Mg Tablet PO 08/03/19 23:44 Not Given DAILY VALERIE Furosemide 20 mg 07/05/19 14:30 07/05/19 18:20 Lasix Inj/Pf 20 Mg/2 Ml Sdv IV 07/05/19 14:31 20 mg NOW ONE Administration Sodium Chloride 1,000 mls @ 0 mls/hr 07/04/19 18:26 07/04/19 19:55 Nacl 0.9% 1000 Ml Iv Soln IV 07/04/19 18:27 Infused BOLUS ONE Infusion Wide Open Sodium Chloride 1,770 mls @ 442.5 mls/hr 07/04/19 21:51 07/04/19 22:28 Nacl 0.9% 1000 Ml Iv Soln 30 ml/kg infuse over 4 hr (1770 ml) 07/05/19 01:50 442.5 mls/hr IV Administration BOLUS ONE Cefepime HCl 2 gm in 50 mls @ 100 mls/hr 07/04/19 23:45 07/05/19 01:42 Maxipime Rtu 2 Gm-D5w 50 Ml Premix Bag IV 07/11/19 23:44 Not Given Q12 VALERIE Sodium Chloride 250 mls @ 30 mls/hr 07/05/19 04:46 Nacl 0.9% 250 Ml Iv Soln IV 07/06/19 04:45 .DURING TRANSFUSION PRN THIS MED IS NOT "PRN" Sodium Chloride 250 mls @ 0 mls/hr 07/05/19 04:46 Nacl 0.9% 250 Ml Iv Soln IV 07/06/19 04:45 CONTINUOUS PRN AFTER EACH UNIT As Directed Iron Sucrose 100 mg 07/05/19 04:20 07/05/19 05:31 Venofer Inj/Pf 100 Mg/5 Ml Sdv IV 07/05/19 04:21 100 mg NOW ONE Administration Lorazepam 0.5 mg 07/04/19 22:09 07/04/19 22:47 Ativan Inj 2 Mg/1 Ml Vial IV 07/04/19 22:10 0.5 mg NOW ONE Administration Lorazepam 2 mg 07/05/19 13:00 07/05/19 13:56 Ativan Inj 2 Mg/1 Ml Vial IV 07/05/19 13:01 2 mg NOW ONE Administration Lorazepam 1 mg 07/05/19 17:06 07/05/19 18:21 Ativan Inj 2 Mg/1 Ml Vial IV 07/12/19 17:05 1 mg Q4HP PRN Administration ANXIETY/AGITATION Piperacillin Sod/Tazobactam Sod 4.5 gm 07/04/19 21:51 07/04/19 22:31 Zosyn Inj 4.5 Gm Vial IV 07/04/19 21:52 4.5 gm IVBAG (ED) ONE Administration Vancomycin HCl 1,000 mg 07/04/19 21:51 07/04/19 23:08 Vancocin Inj 1000 Mg Vial IV 07/04/19 21:52 1,000 mg IVBAG (ED) ONE Administration Assessment & Plan - Diagnosis (1) Elevated troponin Is this a current diagnosis for this admission?: Yes Plan: Likely secondary to demand related ischemia resulting in type II MA secondary to her profound anemia upon presentation, acute and severe respiratory illness and even possible sepsis. Her troponin is trending down and she did not have obvious regional wall motion abnormalities on her TTE although her RV was mildly dilated with mild to moderate RV systolic dysfunction which could be actually related to her respiratory illness. She is currently fully anticoagulated with lovenox however, from the cardiac standpoint, she does not require full anticoagulation as the mechanism of her elevated troponin is not from plaque rupture with thrombus formation but from demand related ischemia. Recommendations: -If no further reasons for full anticoagulation, may discontinue lovenox from the cardiac standpoint. -Start enteric coated baby aspirin daily. -Continue trending troponin. -Pharmacological MPS vs outpatient C to complete ischemic work up. (2) Congestive heart failure Qualifiers: Heart failure type: diastolic Heart failure chronicity: acute Qualified Code(s): I50.31 - Acute diastolic (congestive) heart failure Is this a current diagnosis for this admission?: Yes Plan: Her HF is improving and her fluid balance is now ->2L. Etiology of HF is likely demand related ischemia although the patient will require a full ischemic work up when her respiratory illness is resolved to fully exclude obstructive coronary artery disease. Of note, she is hypokalemic this morning. Recommendations: -Lasix 20mg IV daily. -Consider adding low dose MACIEL-I or ARB. -Replace electrolytes. -Strict intake and output. -Low sodium diet. -Will continue to follow with you.
[2019-07-06] MEDS: CEFEPIME HCL 2 GM in DEXTROSE 5%-WATER 50 ML IV SCH ×2 (10:11→21:12)
[2019-07-06] MEDS: BUSPIRONE HCL 10 MG TABLET PO SCH ×2 (10:12→21:14)
[2019-07-06] MEDS: CETIRIZINE 10 MG TABLET PO SCH (10:12)
[2019-07-06] MEDS: POTASSI CL 20 MEQ/50 ML RIDER 20 MEQ/50 ML RTUPB IV SCH ×5 (10:12→22:46)
[2019-07-06] MEDS: ASCORBIC ACID 500 MG TABLET PO SCH ×2 (10:13→17:04)
[2019-07-06] MEDS: ZINC SULFATE 220 MG CAPSULE PO SCH (10:13)
[2019-07-06] MEDS: ENOXAPARIN SODIUM INJ 60 MG/0.6 ML DISP.SYRIN SUBCUT SCH ×2 (10:14→21:14)
[2019-07-06] MEDS: CHOLECALCIFEROL (D3) 400 UNIT TABLET PO SCH (10:15)
[2019-07-06 10:18] LABS: ARTERIAL BLOOD BASE EXCESS -3.3 mmol/L; ARTERIAL BLOOD H2CO3 1.03 mmol/L (1.05-1.35); ARTERIAL BLOOD HCO3 20.9 mmol/L (20-24); ARTERIAL BLOOD O2 SATURATION 96.4 % (94-98); ARTERIAL BLOOD PCO2 34.3 mmHg (35-45); ARTERIAL BLOOD PO2 83.9 mmHg (80-100)
[2019-07-06] MEDS ORDERED: GUAIFENESIN SYRP 200 MG/10 ML UDC PO PRN (10:18)
[2019-07-06 10:19] LABS: ARTERIAL BLOOD FIO2 30%
--- NOTE | 2019-07-06 10:28 | PDOC PROGRESS REPORT ---
Subjective Progress Note for:: 07/06/19 Subjective:: DONALD ALBRIGHT is a 69 year old female with a past medical history of complicated Crohn's disease with colostomy, depression, anxiety, COPD with bronchitis, and tobacco dependence. Patient was discharged 72 hours prior after treatment of acute pancreatitis, COPD exacerbation and acute on chronic bronchitis. Patient was readmitted 07/04/2019 with sepsis secondary to healthcare associated pneumonia. Patient was seen early on morning rounds. She just been placed back onto BiPAP. She was found to be lethargic, would wake easily when I set her name or gently shook her shoulder but then quickly falls asleep after saying 1 or 2 words. She is noted to be tachypneic with a rate in the 30s, shallow respirations, and supraclavicular retractions (improved from yesterday when she was also having intercostal retractions and accessory muscle use). She does complain of chest wall discomfort with deep inspiration but otherwise denies complaints. ROS though is notably limited secondary to her lethargy. Reviewed plan of care in detail with nursing as well as recommendations for full PPE (rather than conservative PPE use) as the patient is being ruled out for COVID-19, although quite low suspicion, and is on BiPAP receiving nebulizer treatments. Reason For Visit: PNEUMONIA,NSTEMI (NON-ST ELEVATED MYOCARDIAL Physical Exam Vital Signs: Temp Pulse Resp BP Pulse Ox 98.4 F 72 16 124/56 L 98 07/06/19 07:27 07/06/19 07:27 07/06/19 07:27 07/06/19 07:27 07/06/19 07:27 Intake & Output 07/05/19 07/06/19 07/07/19 06:59 06:59 06:59 Intake Total 1000 1000 300 Output Total 3525 Balance 1000 -2525 300 Weight 59.3 kg 61 kg General appearance: PRESENT: cooperative, mild distress, thin, well-developed Head exam: PRESENT: atraumatic, normocephalic Eye exam: PRESENT: conjunctiva pink, EOMI, PERRLA. ABSENT: scleral icterus Mouth exam: PRESENT: dry mucosa, tongue midline Teeth exam: PRESENT: edentulous - Dentures Respiratory exam: PRESENT: decreased breath sounds - Throughout, prolonged expiratory phas, retraction, rhonchi, symmetrical, tachypnea, other - BiPAP dependent due to work of breathing. ABSENT: rales, wheezes Cardiovascular exam: PRESENT: RRR, +S1, +S2. ABSENT: diastolic murmur, rubs, systolic murmur Pulses: PRESENT: +1 pedal pulses bilateral Vascular exam: PRESENT: normal capillary refill GI/Abdominal exam: PRESENT: soft, other - Ileostomy. ABSENT: distended, guarding, rebound, tenderness Rectal exam: PRESENT: deferred Extremities exam: PRESENT: full ROM. ABSENT: calf tenderness, clubbing, pedal edema Neurological exam: PRESENT: CN II-XII grossly intact, other - Arousable and or iented to self. Lethargic. ABSENT: motor sensory deficit Psychiatric exam: PRESENT: appropriate affect, normal mood. ABSENT: homicidal ideation, suicidal ideation Skin exam: PRESENT: dry, intact, warm. ABSENT: cyanosis, rash Results Laboratory Results: 07/06/19 08:06 07/06/19 08:06 07/05/19 07/05/19 07/05/19 05:17 14:00 14:20 WBC RBC Hgb Hct MCV MCH MCHC RDW Plt Count Seg Neutrophils % Carbonic Acid 1.09 HCO3/H2CO3 Ratio 17:1 ABG pH 7.33 L ABG pCO2 36.2 ABG pO2 119.0 H ABG HCO3 18.8 L ABG O2 Saturation 98.1 H ABG Base Excess -6.4 FiO2 50% Sodium Potassium Chloride Carbon Dioxide Anion Gap BUN Creatinine Est GFR ( Amer) Glucose Lactic Acid Calcium Total Bilirubin AST Alkaline Phosphatase Total Protein Albumin Urine Color YELLOW Urine Appearance CLEAR Urine pH 6.0 Ur Specific [place] 1.028 Urine Protein 30 H Urine Glucose (UA) NEGATIVE Urine Ketones TRACE H Urine Blood SMALL H Urine Nitrite NEGATIVE Ur Leukocyte Esterase NEGATIVE Urine WBC (Auto) 2 Urine RBC (Auto) 0 Stool Occult Blood Blood Type A POSITIVE Antibody Screen NEGATIVE 07/05/19 07/05/19 07/06/19 15:11 21:18 03:21 WBC 12.1 H RBC 2.93 L Hgb 9.3 L Hct 26.8 L MCV 92 MCH 31.6 MCHC 34.6 RDW 15.1 H Plt Count 210 Seg Neutrophils % Carbonic Acid HCO3/H2CO3 Ratio ABG pH ABG pCO2 ABG pO2 ABG HCO3 ABG O2 Saturation ABG Base Excess FiO2 Sodium Potassium Chloride Carbon Dioxide Anion Gap BUN Creatinine Est GFR ( Amer) Glucose Lactic Acid 0.9 Calcium Total Bilirubin AST Alkaline Phosphatase Total Protein Albumin Urine Color Urine Appearance Urine pH Ur Specific [place] Urine Protein Urine Glucose (UA) Urine Ketones Urine Blood Urine Nitrite Ur Leukocyte Esterase Urine WBC (Auto) Urine RBC (Auto) Stool Occult Blood NEGATIVE Blood Type Antibody Screen 07/06/19 07/06/19 08:06 08:06 WBC 9.9 RBC 3.09 L Hgb 10.1 L Hct 28.4 L MCV 92 MCH 32.6 MCHC 35.6 RDW 15.3 H Plt Count 229 Seg Neutrophils % Not Reportable Carbonic Acid HCO3/H2CO3 Ratio ABG pH ABG pCO2 ABG pO2 ABG HCO3 ABG O2 Saturation ABG Base Excess FiO2 Sodium 137.2 Potassium 2.8 L* Chloride 107 Carbon Dioxide 20 L Anion Gap 10 BUN 20 Creatinine 0.85 Est GFR ( Amer) > 60 Glucose 93 Lactic Acid Calcium 8.3 L Total Bilirubin 0.5 AST 18 Alkaline Phosphatase 85 Total Protein 5.1 L Albumin 2.5 L Urine Color Urine Appearance Urine pH Ur Specific [place] Urine Protein Urine Glucose (UA) Urine Ketones Urine Blood Urine Nitrite Ur Leukocyte Esterase Urine WBC (Auto) Urine RBC (Auto) Stool Occult Blood Blood Type Antibody Screen 07/04/19 18:22 Throat Throat Culture - Final C.albicans/C.dubliniensis Normal Anne Marie Absent 07/04/19 07/04/19 07/05/19 18:22 18:22 00:53 Creatine Kinase 45 CK-MB (CK-2) 2.59 Troponin I 0.204 NT-Pro-B Natriuret Pep [id number] H 07/05/19 07/05/19 07/05/19 00:53 00:53 05:17 Creatine Kinase 33 41 CK-MB (CK-2) 2.13 Troponin I 0.246 NT-Pro-B Natriuret Pep 07/05/19 07/05/19 07/05/19 05:17 15:11 15:11 Creatine Kinase 33 CK-MB (CK-2) 2.95 1.89 Troponin I 0.192 0.185 NT-Pro-B Natriuret Pep Impressions: Chest X-Ray 07/05/19 00:00 IMPRESSION: Persistent diffuse bilateral interstitial opacities with mildly increased bibasilar opacities and small bilateral effusions suggestive of edema. Superimposed infection is not excluded. Assessment and Plan - Diagnosis (1) Pneumonia Qualifiers: Qualified Code(s): J18.9 - Pneumonia, unspecified organism Is this a current diagnosis for this admission?: Yes Plan: Blood cultures pending. Sputum cultures pending; have not been obtained COVID-19 testing pending. Patient is admitted to [facility] on continuous cardiac telemetry and pulse oximetry. Patient is provided supplemental oxygen as needed maintain saturations greater than 89%. Due to her worsening respiratory distress related to work of breathing/fatigue, the patient was trialed on HFNC, which provided only brief relief, and then placed on BiPAP. Her distress is significantly decreased while on BiPAP. Patient is empirically placed on vancomycin and cefepime Scheduled and as needed nebulizer treatments. She is placed on Robitussin as needed. Pulmonary toilet is encouraged with incentive spirometer, flutter valve, early ambulation. Unfortunately, patient was removed from BiPAP overnight due to "adequate SpO2" despite order for continuous use. Further, she has not received her neb treatments as ordered. Discussed with nursing, RT, and nursing equipment records supervisor regarding the importance of the patient receiving her respiratory interventions as ordered. Patient reviewed with Dr. Sawant. Recommends repeat ABG. Will follow up with wool puller again following lab result. (2) Congestive heart failure Qualifiers: Qualified Code(s): I50.31 - Acute diastolic (congestive) heart failure Is this a current diagnosis for this admission?: Yes Plan: Cardiology was consulted. Echocardiogram revealed normal LV EF with some RV dysfunction. HFpEF is likely secondary to pulmonary infection and complicated by anemia; elevated troponin and CHF exacerbation secondary to demand related ischemia. Discussed with Dr. Stone for seeing this morning again in the afternoon when he came to the bedside to follow-up on her clinical status. Per Dr. Stone patient would benefit from gentle diuresis. We will provide IV furosemide before and after her blood transfusion today and continue with daily low-dose furosemide as clinically indicated. We will monitor daily weights and strict I&O's. (3) Elevated troponin Is this a current diagnosis for this admission?: Yes Plan: Trending down; no longer following. Patient confirms that she is chest pain-free; denies palpitations. Cardiology is consulted. Appreciate Dr. Stone's assistance. Elevated troponin represents demand mismatch ischemia related to her acute respiratory failure/distress as a consequence of her multifocal pneumonia. Aspirin currently on hold well correcting for anemia. Continuing full dose Lovenox; may de-escalate once the patient's COVID 19 test results. (4) Anemia Is this a current diagnosis for this admission?: Yes Plan: Patient with history of chronic anemia. Baseline hemoglobin of 8.5. Hgb 8.5-> 7.7-> 9.3-> 10.1 Now s/p 1 unit PRBC Hgb improved to 10.1 Aspirin is placed on hold. We will continue full dose Lovenox at this time; nursing is asked to watch closely for evidence of bleeding. Daily CBC (5) COPD (chronic obstructive pulmonary disease) Qualifiers: Qualified Code(s): J44.9 - Chronic obstructive pulmonary disease, unspecified Is this a current diagnosis for this admission?: Yes Plan: Supplemental oxygen, flutter valve, incentive spirometry. Albuterol and Atrovent. Consider steroid therapy. Remaining management as above. (6) Sepsis due to pneumonia Is this a current diagnosis for this admission?: Yes Plan: Patient presented to the emergency department with sepsis without shock secondary to healthcare associated pneumonia. She received appropriate IV fluid resuscitation followed by 1 unit PRBC. Blood culture, sputum culture, urine culture, stool culture pending. COVID-19 testing pending. Antibiotics as above. - Time Time Spent with patient: 35 or more minutes Medications reviewed and adjusted accordingly: Yes
--- NOTE | 2019-07-06 11:14 | PDOC CRITICAL CARE PROG REPORT ---
General Date:: 07/06/19 ICU Day:: 0 Ventilator Day:: 0 Hospital Day:: 1 Resuscitation Status: Full Code Events in the past 12 to 24 Hours:: Getting treatment for suspected COPD and PNA. Review of systems relevant to events:: Pulmonary Reason for ICU Addmission:: Evaluation - Medications: Medications reviewed and adjusted accordingly: Yes Vasopressors:: None Sedation:: None Physical Exam Vital Signs: Temp Pulse Resp BP Pulse Ox 98.4 F 75 25 H 124/56 L 97 07/06/19 07:27 07/06/19 10:24 07/06/19 10:24 07/06/19 07:27 07/06/19 10:24 Intake & Output 07/05/19 07/06/19 07/07/19 06:59 06:59 06:59 Intake Total 1000 1000 300 Output Total 3525 Balance 1000 -2525 300 Weight 59.3 kg 61 kg Weight/Height Weight 61 kg Height 5 ft 2 in General appearance: PRESENT: no acute distress, cooperative, other - Sleepy Head exam: PRESENT: atraumatic, normocephalic Eye exam: PRESENT: conjunctiva pink, EOMI, PERRLA. ABSENT: scleral icterus Ear exam: PRESENT: normal external ear exam Mouth exam: PRESENT: moist, tongue midline Respiratory exam: PRESENT: decreased breath sounds, unlabored Cardiovascular exam: PRESENT: RRR. ABSENT: diastolic murmur, rubs, systolic murmur GI/Abdominal exam: PRESENT: normal bowel sounds, soft. ABSENT: distended, guarding, mass, organolmegaly, rebound, tenderness Rectal exam: PRESENT: deferred Gentrourinary exam: PRESENT: indwelling catheter Extremities exam: PRESENT: full ROM. ABSENT: calf tenderness, clubbing, pedal edema Neurological exam: PRESENT: alert, awake, other - Arousable. Skin exam: PRESENT: dry, intact, warm. ABSENT: cyanosis, rash Laboratory/Radiographs Laboratory Results: 07/06/19 08:06 07/06/19 08:06 07/05/19 07/05/19 07/05/19 05:17 14:00 14:20 WBC RBC Hgb Hct MCV MCH MCHC RDW Plt Count Seg Neutrophils % Carbonic Acid 1.09 HCO3/H2CO3 Ratio 17:1 ABG pH 7.33 L ABG pCO2 36.2 ABG pO2 119.0 H ABG HCO3 18.8 L ABG O2 Saturation 98.1 H ABG Base Excess -6.4 FiO2 50% Sodium Potassium Chloride Carbon Dioxide Anion Gap BUN Creatinine Est GFR ( Amer) Glucose Lactic Acid Calcium Magnesium Total Bilirubin AST Alkaline Phosphatase Total Protein Albumin Urine Color YELLOW Urine Appearance CLEAR Urine pH 6.0 Ur Specific [place] 1.028 Urine Protein 30 H Urine Glucose (UA) NEGATIVE Urine Ketones TRACE H Urine Blood SMALL H Urine Nitrite NEGATIVE Ur Leukocyte Esterase NEGATIVE Urine WBC (Auto) 2 Urine RBC (Auto) 0 Stool Occult Blood Blood Type A POSITIVE Antibody Screen NEGATIVE 07/05/19 07/05/19 07/06/19 15:11 21:18 03:21 WBC 12.1 H RBC 2.93 L Hgb 9.3 L Hct 26.8 L MCV 92 MCH 31.6 MCHC 34.6 RDW 15.1 H Plt Count 210 Seg Neutrophils % Carbonic Acid HCO3/H2CO3 Ratio ABG pH ABG pCO2 ABG pO2 ABG HCO3 ABG O2 Saturation ABG Base Excess FiO2 Sodium Potassium Chloride Carbon Dioxide Anion Gap BUN Creatinine Est GFR ( Amer) Glucose Lactic Acid 0.9 Calcium Magnesium Total Bilirubin AST Alkaline Phosphatase Total Protein Albumin Urine Color Urine Appearance Urine pH Ur Specific [place] Urine Protein Urine Glucose (UA) Urine Ketones Urine Blood Urine Nitrite Ur Leukocyte Esterase Urine WBC (Auto) Urine RBC (Auto) Stool Occult Blood NEGATIVE Blood Type Antibody Screen 07/06/19 07/06/19 07/06/19 08:06 08:06 08:06 WBC 9.9 RBC 3.09 L Hgb 10.1 L Hct 28.4 L MCV 92 MCH 32.6 MCHC 35.6 RDW 15.3 H Plt Count 229 Seg Neutrophils % Not Reportable Carbonic Acid HCO3/H2CO3 Ratio ABG pH ABG pCO2 ABG pO2 ABG HCO3 ABG O2 Saturation ABG Base Excess FiO2 Sodium 137.2 Potassium 2.8 L* Chloride 107 Carbon Dioxide 20 L Anion Gap 10 BUN 20 Creatinine 0.85 Est GFR ( Amer) > 60 Glucose 93 Lactic Acid Calcium 8.3 L Magnesium 1.8 Total Bilirubin 0.5 AST 18 Alkaline Phosphatase 85 Total Protein 5.1 L Albumin 2.5 L Urine Color Urine Appearance Urine pH Ur Specific [place] Urine Protein Urine Glucose (UA) Urine Ketones Urine Blood Urine Nitrite Ur Leukocyte Esterase Urine WBC (Auto) Urine RBC (Auto) Stool Occult Blood Blood Type Antibody Screen 07/06/19 10:03 WBC RBC Hgb Hct MCV MCH MCHC RDW Plt Count Seg Neutrophils % Carbonic Acid 1.03 L HCO3/H2CO3 Ratio 20:1 ABG pH 7.40 ABG pCO2 34.3 L ABG pO2 83.9 ABG HCO3 20.9 ABG O2 Saturation 96.4 ABG Base Excess -3.3 FiO2 30% Sodium Potassium Chloride Carbon Dioxide Anion Gap BUN Creatinine Est GFR ( Amer) Glucose Lactic Acid Calcium Magnesium Total Bilirubin AST Alkaline Phosphatase Total Protein Albumin Urine Color Urine Appearance Urine pH Ur Specific [place] Urine Protein Urine Glucose (UA) Urine Ketones Urine Blood Urine Nitrite Ur Leukocyte Esterase Urine WBC (Auto) Urine RBC (Auto) Stool Occult Blood Blood Type Antibody Screen 07/04/19 18:22 Throat Throat Culture - Final C.albicans/C.dubliniensis Normal Anne Marie Absent 07/04/19 07/04/19 07/05/19 18:22 18:22 00:53 Creatine Kinase 45 CK-MB (CK-2) 2.59 Troponin I 0.204 NT-Pro-B Natriuret Pep 16439 H 07/05/19 07/05/19 07/05/19 00:53 00:53 05:17 Creatine Kinase 33 41 CK-MB (CK-2) 2.13 Troponin I 0.246 NT-Pro-B Natriuret Pep 07/05/19 07/05/19 07/05/19 05:17 15:11 15:11 Creatine Kinase 33 CK-MB (CK-2) 2.95 1.89 Troponin I 0.192 0.185 NT-Pro-B Natriuret Pep Impressions: Chest X-Ray 07/05/19 00:00 IMPRESSION: Persistent diffuse bilateral interstitial opacities with mildly increased bibasilar opacities and small bilateral effusions suggestive of edema. Superimposed infection is not excluded. All labs, radiographs, diagnostic studies and EKGs were personally reviewed: Yes In addition, reports of radiographic and diagnostic studies were read: Yes Assessment and Plan - Diagnosis (1) COPD (chronic obstructive pulmonary disease) Qualifiers: COPD type: emphysema Emphysema type: centrilobular Qualified Code(s): J43.2 - Centrilobular emphysema Is this a current diagnosis for this admission?: Yes Plan: Curently she is not wheezing. She needs albuterol and steroids. Her ABG looks adequate on 30%. I agree that she may not have the strength to do adequate MDIs but they can be tried with a spacer. If these are not effective then nebs are appropriate. I dont see ABG criteria for bipap. When awake try to transition to another mode, CPAP or cannula. She looks tired. Her PaO2/FiO2 gradient is nearly 300. Her cxr does not look like ARDS, her lungs do not sound like it. She lacks Egnar criteria and is therefor not in ARDS. Doubt COVID as well. (2) Pneumonia Qualifiers: Laterality: bilateral Is this a current diagnosis for this admission?: Yes Plan: This may be CAP or even an aspiration. I dont get the sense there has been vomiting but she does have reflux. (3) COVID-19 Is this a current diagnosis for this admission?: Yes Plan: Awaiting results, risk low. (4) NSTEMI (non-ST elevated myocardial infarction) Is this a current diagnosis for this admission?: Yes Plan: Agree with Dr. Stone this is a demand/supply mismatch from respiratory issues. Stress testing or cath when she is well. Plan Summary: No need for the ICU at this time. Critical Time Critical Time (minutes): 40 Level of Care: IMCU Anticipated discharge: Home Within: Other -: 1. The care of a critical patient is a dynamic process. This note is a sales [employer] synopsis but static in nature. The timeframe for treatments g iven in order is not necessarily the actual time these treatments may have been done. 2. This patient requires critical care secondary to ongoing requirements for therapy not offered or safe outside the critical care environment. Transfer to a lower level of care will result in altered life or limb morbidity and mortality. 3. Multidisciplinary rounds completed. 4. ABCDE bundle addressed.
[2019-07-06] MEDS: FUROSEMIDE INJ/PF 20 MG/2 ML SDV IV SCH (11:35)
[2019-07-06] MEDS ORDERED: IPRATROPIUM/ALBUTEROL 0.5-2.5 MG/3 ML AMPUL NEB ONE (12:00)
[2019-07-06] MEDS: METHYLPREDNISOLONE INJ 40 MG/1 ML SDV IV SCH ×2 (13:08→21:14)
[2019-07-06] MEDS: DIPHENOXYLATE HCL/ATROP SULF 2.5-0.025 MG TABLET PO PRN ×2 (13:09→20:29)
[2019-07-06] MEDS ORDERED: ALBUTEROL SULFATE 0.083% NEB 2.5 MG/3 ML AMPUL NEB SCH (14:00)
[2019-07-06] MEDS ORDERED: LORAZEPAM INJ 2 MG/1 ML VIAL IV PRN (14:05)
[2019-07-06] MEDS ORDERED: ALBUTEROL SULFATE HFA (90 MCG/PUFF) 8 GM MDI IH PRN (16:31)
[2019-07-06] MEDS: VANCOMYCIN HCL 1,250 MG in DEXTROSE 5%-WATER 250 ML IV SCH (17:04)
[2019-07-06] MEDS: ACETAMINOPHEN 325 MG TABLET PO PRN (18:59)
[2019-07-06] MEDS ORDERED: IPRATROPIUM/ALBUTEROL 0.5-2.5 MG/3 ML AMPUL NEB SCH (20:00)
[2019-07-06] MEDS ORDERED: KETOROLAC TROMETHAMINE INJ/PF 30 MG/1 ML SDV ONE (20:16)
[2019-07-06] MEDS: FLUCONAZOLE 100 MG TABLET PO SCH (20:28)
[2019-07-06] MEDS: POTASSI CL 20 MEQ/D5NS 1L 20 MEQ/1,000 ML RTUINJ IV PRN (20:29)
[2019-07-06] MEDS ORDERED: KETOROLAC TROMETHAMINE INJ/PF 30 MG/1 ML SDV IV ONE (20:30)
[2019-07-06] MEDS: ROPINIROLE HCL 1 MG TABLET PO SCH (21:13)
[2019-07-06] MEDS: TRAZODONE HCL 50 MG TABLET PO SCH (21:13)
[2019-07-06] MEDS: MELATONIN 3 MG TABLET PO SCH (21:13)
[2019-07-06] MEDS: GUAIFENESIN 600 MG TABLET.SA PO SCH (21:13)
[2019-07-06] MEDS: IPRATROPIUM/ALBUTEROL 0.5-2.5 MG/3 ML AMPUL NEB SCH (21:22)
[2019-07-06] MEDS: LORAZEPAM INJ 2 MG/1 ML VIAL IV PRN (21:39)
[2019-07-07] MEDS: DIPHENOXYLATE HCL/ATROP SULF 2.5-0.025 MG TABLET PO PRN (03:17)
[2019-07-07] MEDS: LORAZEPAM INJ 2 MG/1 ML VIAL IV PRN (03:30)
[2019-07-07] MEDS: IPRATROPIUM/ALBUTEROL 0.5-2.5 MG/3 ML AMPUL NEB SCH ×4 (03:57→20:51)
[2019-07-07] MEDS: GABAPENTIN 300 MG CAPSULE PO SCH ×3 (05:41→21:35)
[2019-07-07] MEDS: METHYLPREDNISOLONE INJ 40 MG/1 ML SDV IV SCH ×3 (05:42→21:36)
[2019-07-07 05:59] LABS: HEMATOCRIT 30.4 % (36.0-47.0); HEMOGLOBIN 10.7 g/dL (12.0-15.5); MEAN CORPUSCULAR HEMOGLOBIN 32.6 pg (27.0-33.4); MEAN CORPUSCULAR HGB CONC 35.3 g/dL (32.0-36.0); MEAN CORPUSCULAR VOLUME 92 fl (80-97); PLATELET COUNT 252 10^3/uL (150-450); RED CELL DISTRIBUTION WIDTH 15.3 % (11.5-14.0); WHITE BLOOD COUNT 8.6 10^3/uL (4.0-10.5)
[2019-07-07 06:29] LABS: ANION GAP 12 (5-19); BLOOD UREA NITROGEN 25 mg/dL (7-20); CALCIUM 8.7 mg/dL (8.4-10.2); CARBON DIOXIDE 18 mmol/L (22-30); CHLORIDE 107 mmol/L (98-107); GLUCOSE 166 mg/dL (75-110)
[2019-07-07 06:42] LABS: POTASSIUM 3.8 mmol/L (3.6-5.0)
[2019-07-07] MEDS: CHOLECALCIFEROL (D3) 400 UNIT TABLET PO SCH (09:07)
[2019-07-07] MEDS: CEFEPIME HCL 2 GM in DEXTROSE 5%-WATER 50 ML IV SCH ×2 (09:08→21:42)
[2019-07-07] MEDS: BUSPIRONE HCL 10 MG TABLET PO SCH ×2 (09:08→21:35)
[2019-07-07] MEDS: CETIRIZINE 10 MG TABLET PO SCH (09:08)
[2019-07-07] MEDS: DIPHENOXYLATE HCL/ATROP SULF 2.5-0.025 MG TABLET PO SCH ×4 (09:08→21:35)
[2019-07-07] MEDS: FLUCONAZOLE 100 MG TABLET PO SCH (09:08)
[2019-07-07] MEDS: GUAIFENESIN 600 MG TABLET.SA PO SCH ×2 (09:08→21:35)
[2019-07-07] MEDS: ASCORBIC ACID 500 MG TABLET PO SCH ×2 (09:08→17:08)
[2019-07-07] MEDS: ENOXAPARIN SODIUM INJ 60 MG/0.6 ML DISP.SYRIN SUBCUT SCH (09:08)
[2019-07-07] MEDS: ZINC SULFATE 220 MG CAPSULE PO SCH (09:08)
[2019-07-07] MEDS: FUROSEMIDE INJ/PF 20 MG/2 ML SDV IV SCH (09:09)
--- NOTE | 2019-07-07 10:02 | PDOC PROGRESS REPORT ---
Subjective Progress Note for:: 07/07/19 Subjective:: DONALD ALBRIGHT is a 69 year old female with history of complicated Crohn's disease including a total colectomy and ileostomy, depression, tobacco abuse and COPD who is consulted to our service for further evaluation of elevated troponin. The patient was recently admitted to this facility for acute pancreatitis and was just discharged to alf facility on 07/01/2019. Her chest x-ray at that time demonstrated the possibility of a developing pneumonia along with trace bilateral pleural effusions. She was discharged on p.o. antibiotics but unfortunately she developed significant shortness of breath and increased work of breathing therefore she came to the emergency room for further evaluation. She specifically denies all cardiac history such as amina cardial infarction, angina, angina equivalents, lower extremity edema, palpitations as well as heart failure. She is currently admitted to an isolation room due to suspected coronavirus therefore a virtual consult using a WebCam and Airu system was used to interview the patient, no physical exam was possible. During the virtual interview the patient is noted to be in respiratory distress and complaining of severe shortness of breath. She denies chest pain as well as other anginal equivalents. 07/07/19: Once again, the patient is evaluated remotely as she continues to be in isolation and awaiting results of COVID-19 testing. The patient is asleep this morning and does not appear to be in any distress. Her nurse reports that the patient has remained stable and slightly improved since yesterday. Her telemetry is negative for complex atrial and ventricular dysrhythmias. I appreciate Dr. Sawant's expertise and input. Physical exam was not possible today due to her isolation status. Reason For Visit: PNEUMONIA,NSTEMI (NON-ST ELEVATED MYOCARDIAL Physical Exam Vital Signs: Temp Pulse Resp BP Pulse Ox 98.1 F 67 22 H 116/54 L 100 07/07/19 07:07 07/07/19 07:07 07/07/19 07:07 07/07/19 07:07 07/07/19 07:07 Intake & Output 07/06/19 07/07/19 07/08/19 06:59 06:59 06:59 Intake Total 1000 2395 100 Output Total 3525 3250 Balance -4574 -342 100 Weight 61 kg 65.2 kg Results Laboratory Results: 07/07/19 05:34 07/07/19 05:34 07/06/19 07/06/19 07/06/19 08:06 10:03 18:15 WBC RBC Hgb Hct MCV MCH MCHC RDW Plt Count Carbonic Acid 1.03 L HCO3/H2CO3 Ratio 20:1 ABG pH 7.40 ABG pCO2 34.3 L ABG pO2 83.9 ABG HCO3 20.9 ABG O2 Saturation 96.4 ABG Base Excess -3.3 FiO2 30% Sodium Potassium 2.8 L* Chloride Carbon Dioxide Anion Gap BUN Creatinine Est GFR ( Amer) Glucose Calcium Magnesium 1.8 07/07/19 07/07/19 05:34 05:34 WBC 8.6 RBC 3.30 L Hgb 10.7 L Hct 30.4 L MCV 92 MCH 32.6 MCHC 35.3 RDW 15.3 H Plt Count 252 Carbonic Acid HCO3/H2CO3 Ratio ABG pH ABG pCO2 ABG pO2 ABG HCO3 ABG O2 Saturation ABG Base Excess FiO2 Sodium 137.0 Potassium 3.8 D Chloride 107 Carbon Dioxide 18 L Anion Gap 12 BUN 25 H Creatinine 0.94 Est GFR ( Amer) > 60 Glucose 166 H Calcium 8.7 Magnesium 07/05/19 14:00 Stool - Stool - Final 07/04/19 07/04/19 07/05/19 18:22 18:22 00:53 Creatine Kinase 45 CK-MB (CK-2) 2.59 Troponin I 0.204 NT-Pro-B Natriuret Pep 62375 H 07/05/19 07/05/19 07/05/19 00:53 00:53 05:17 Creatine Kinase 33 41 CK-MB (CK-2) 2.13 Troponin I 0.246 NT-Pro-B Natriuret Pep 07/05/19 07/05/19 07/05/19 05:17 15:11 15:11 Creatine Kinase 33 CK-MB (CK-2) 2.95 1.89 Troponin I 0.192 0.185 NT-Pro-B Natriuret Pep Impressions: Chest X-Ray 07/05/19 00:00 IMPRESSION: Persistent diffuse bilateral interstitial opacities with mildly increased bibasilar opacities and small bilateral effusions suggestive of edema. Superimposed infection is not excluded. 07/07/19 05:34 07/07/19 05:34 MCV 92 fl (80-97) 07/07/19 05:34 MCH 32.6 pg (27.0-33.4) 07/07/19 05:34 MCHC 35.3 g/dL (32.0-36.0) 07/07/19 05:34 RDW 15.3 % (11.5-14.0) H 07/07/19 05:34 Seg Neutrophils % Not Reportable 07/06/19 08:06 Retic Count (auto) 1.77 % (0.66-2.85) 07/05/19 00:53 Carbonic Acid 1.03 mmol/L (1.05-1.35) L 07/06/19 10:03 HCO3/H2CO3 Ratio 20:1 07/06/19 10:03 ABG pH 7.40 (7.35-7.45) 07/06/19 10:03 ABG pCO2 34.3 mmHg (35-45) L 07/06/19 10:03 ABG pO2 83.9 mmHg (80-100) 07/06/19 10:03 ABG HCO3 20.9 mmol/L (20-24) 07/06/19 10:03 ABG O2 Saturation 96.4 % (94-98) 07/06/19 10:03 ABG Base Excess -3.3 mmol/L 07/06/19 10:03 VBG pH 7.25 (7.30-7.42) L 07/04/19 18:22 VBG pCO2 42.5 mmHg (35-63) 07/04/19 18:22 VBG HCO3 18.1 mmol/L (20-32) L 07/04/19 18:22 VBG Base Excess -8.8 mmol/L 07/04/19 18:22 FiO2 30% 07/06/19 10:03 Chloride 107 mmol/L (98-107) 07/07/19 05:34 Carbon Dioxide 18 mmol/L (22-30) L 07/07/19 05:34 Anion Gap 12 (5-19) 07/07/19 05:34 Est GFR ( Amer) > 60 (>60) 07/07/19 05:34 Glucose 166 mg/dL (75-110) H 07/07/19 05:34 Lactic Acid 0.9 mmol/L (0.7-2.1) 07/05/19 15:11 Calcium 8.7 mg/dL (8.4-10.2) 07/07/19 05:34 Magnesium 1.8 mg/dL (1.6-2.3) 07/06/19 08:06 Iron 30.1 ug/dL (37-170) L 07/05/19 00:53 TIBC 255 ug/dL (250-450) 07/05/19 00:53 % Saturation 12 % 07/05/19 00:53 Ferritin 128.00 ng/mL (11.1-264.0) 07/05/19 05:35 Total Bilirubin 0.5 mg/dL (0.2-1.3) 07/06/19 08:06 AST 18 U/L (14-36) 07/06/19 08:06 Alkaline Phosphatase 85 U/L (38-126) 07/06/19 08:06 C-Reactive Protein 353.6 mg/L (<10.0) H 07/05/19 05:35 Total Protein 5.1 g/dL (6.3-8.2) L 07/06/19 08:06 Albumin 2.5 g/dL (3.5-5.0) L 07/06/19 08:06 Lipase 293.8 U/L (23-300) 07/04/19 18:22 Vitamin B12 871.0 pg/mL (239-931) 07/05/19 00:53 Folate 19.90 ng/mL (>2.76) 07/05/19 00:53 Urine Color YELLOW 07/05/19 14:00 Urine Appearance CLEAR 07/05/19 14:00 Urine pH 6.0 (5.0-9.0) 07/05/19 14:00 Ur Specific [place] 1.028 07/05/19 14:00 Urine Protein 30 mg/dL (NEGATIVE) H 07/05/19 14:00 Urine Glucose (UA) NEGATIVE mg/dL (NEGATIVE) 07/05/19 14:00 Urine Ketones TRACE mg/dL (NEGATIVE) H 07/05/19 14:00 Urine Blood SMALL (NEGATIVE) H 07/05/19 14:00 Urine Nitrite NEGATIVE (NEGATIVE) 07/05/19 14:00 Ur Leukocyte Esterase NEGATIVE (NEGATIVE) 07/05/19 14:00 Urine WBC (Auto) 2 /HPF 07/05/19 14:00 Urine RBC (Auto) 0 /HPF 07/05/19 14:00 Stool Occult Blood NEGATIVE (NEGATIVE) 07/06/19 03:21 Blood Type A POSITIVE 07/05/19 05:17 Antibody Screen NEGATIVE 07/05/19 05:17 07/05/19 14:00 Stool - Stool - Final 07/04/19 07/04/19 07/05/19 18:22 18:22 00:53 Creatine Kinase 45 CK-MB (CK-2) 2.59 Troponin I 0.204 NT-Pro-B Natriuret Pep 98869 H 07/05/19 07/05/19 07/05/19 00:53 00:53 05:17 Creatine Kinase 33 41 CK-MB (CK-2) 2.13 Troponin I 0.246 NT-Pro-B Natriuret Pep 07/05/19 07/05/19 07/05/19 05:17 15:11 15:11 Creatine Kinase 33 CK-MB (CK-2) 2.95 1.89 Troponin I 0.192 0.185 NT-Pro-B Natriuret Pep Current Medication List Generic Name Dose Route Start Last Admin Trade Name Freq PRN Reason Stop Dose Admin Acetaminophen 650 mg 07/04/19 23:38 07/06/19 18:59 Tylenol 325 Mg Tablet PO 08/03/19 23:37 650 mg Q4HP PRN Administration pain or temp greater than 101F Acetaminophen 650 mg 07/05/19 17:06 Tylenol 325 Mg Supp CA 08/04/19 17:05 Q4HP PRN FOR PAIN OR TEMP Albuterol 2 puff 07/07/19 07:05 Proair Hfa Inhalation Aerosol 8.5 Gm Mdi IH 08/06/19 07:04 Q4HP PRN SHORTNESS OF BREATH Albuterol/Ipratropium 3 ml 07/06/19 20:00 07/07/19 09:44 Duoneb 3 Ml Ampul NEB 08/05/19 19:59 3 ml RTQ6 VALERIE Administration Ascorbic Acid 1,000 mg 07/04/19 23:45 07/07/19 09:08 Vitamin C 500 Mg Tablet PO 08/03/19 23:44 1,000 mg BID VALERIE Administration Buspirone HCl 15 mg 07/05/19 22:00 07/07/19 09:08 Buspar 10 Mg Tablet PO 08/04/19 21:59 15 mg Q12 VALERIE Administration Cetirizine HCl 10 mg 07/06/19 10:00 07/07/19 09:08 Zyrtec 10 Mg Tablet PO 08/05/19 09:59 10 mg DAILY VALERIE Administration Cholecalciferol 400 unit 07/04/19 23:45 07/07/19 09:07 Vitamin D3 400 Unit Tablet PO 08/03/19 23:44 400 unit DAILY VALERIE Administration Diphenoxylate HCl/Atropine 1 tab 07/07/19 10:00 07/07/19 09:08 Lomotil 2.5 Mg Tablet PO 07/14/19 09:59 1 tab QID VALERIE Administration Enoxaparin Sodium 60 mg 07/04/19 23:45 07/07/19 09:08 Lovenox Inj 60 Mg/0.6 Ml Disp.Syrin SUBCUT 08/03/19 23:44 60 mg Q12 VALERIE Administration Fluconazole 100 mg 07/06/19 19:00 07/07/19 09:08 Diflucan 100 Mg Tablet PO 07/09/19 18:59 100 mg DAILY VALERIE Administration Furosemide 10 mg 07/06/19 11:00 07/07/19 09:09 Lasix Inj/Pf 20 Mg/2 Ml Sdv IV 08/05/19 10:59 10 mg DAILY VALERIE Administration Gabapentin 600 mg 07/05/19 22:00 07/07/19 05:41 Neurontin 300 Mg Capsule PO 08/04/19 21:59 600 mg Q8 VALERIE Administration Guaifenesin 200 mg 07/06/19 10:18 Robitussin Syrup 200 Mg/10 Ml Ud Cup PO 08/05/19 10:17 Q4HP PRN COUGH Guaifenesin 600 mg 07/06/19 22:00 07/07/19 09:08 Mucinex Sr 600 Mg Tablet.Sa PO 08/05/19 21:59 600 mg Q12 VALERIE Administration Cefepime HCl 2 gm/ Dextrose 50 mls @ 100 mls/hr 07/05/19 10:00 07/07/19 09:08 IV 07/11/19 23:44 100 mls/hr Q12 VALERIE 100 mls/hr Administration Vancomycin HCl 1,250 mg/ 250 mls @ 166.667 mls/hr 07/05/19 18:00 07/06/19 19:15 Dextrose IV 07/12/19 17:59 Infused QPM VALERIE Infusion Potassium Chloride/Dextrose/Sod Cl 20 meq in 1,000 mls @ 75 mls/hr 07/06/19 18:47 07/06/19 20:29 D5ns 1000 Ml/Kcl 20 Meq Premix Bag IV 08/05/19 18:46 75 ml/hr CONTINUOUS PRN 75 mls/hr THIS MED IS NOT "PRN" Administration Lorazepam 1 mg 07/06/19 16:18 07/07/19 03:30 Ativan Inj 2 Mg/1 Ml Vial IV 07/13/19 14:04 1 mg Q4HP PRN Administration Anxiety while on BiPAP/CPAP Melatonin 6 mg 07/05/19 22:00 07/06/19 21:13 Melatonin 3 Mg Tablet PO 08/04/19 21:59 6 mg QHS VALERIE Administration Methylprednisolone Sodium Succinate 40 mg 07/06/19 12:00 07/07/19 05:42 Solu-Medrol Inj/Pf 40 Mg/1 Ml Sdv IV 08/05/19 11:59 40 mg Q8 VALERIE Administration Nicotine 1 each 07/05/19 17:25 Nicoderm 7 Mg/24 Hr Transdermal Patch TD 08/04/19 17:24 DAILYP PRN SMOKING CESSATION Ropinirole HCl 1 mg 07/05/19 22:00 07/06/19 21:13 Requip 1 Mg Tablet PO 08/04/19 21:59 1 mg QHS VALERIE Administration Sodium Chloride 2.5 ml 07/05/19 06:00 07/07/19 05:42 Saline Flush 2.5 Ml Monoject Prefil Syrin IV 08/04/19 05:59 Not Given Q8 VALERIE Trazodone HCl 50 mg 07/05/19 22:00 07/06/19 21:13 Desyrel 50 Mg Tablet PO 08/04/19 21:59 50 mg QHS VALERIE Administration Zinc Sulfate 440 mg 07/04/19 23:45 07/07/19 09:08 Zinc-220 Capsule PO 08/03/19 23:44 440 mg DAILY VALERIE Administration Discontinued Medications Generic Name Dose Route Start Last Admin Trade Name Freq PRN Reason Stop Dose Admin Acetaminophen 975 mg 07/04/19 18:22 07/04/19 18:52 Tylenol 325 Mg Tablet PO 07/04/19 18:23 975 mg NOW ONE Administration Albuterol 2.5 mg 07/05/19 12:00 07/06/19 10:36 Ventolin 0.083% Neb 2.5 Mg/3 Ml Ampul NEB 08/04/19 11:59 Not Given RTQ4 VALERIE Albuterol 2.5 mg 07/05/19 08:13 Ventolin 0.083% Neb 2.5 Mg/3 Ml Ampul NEB 08/04/19 08:12 RTQ2HP PRN SHORTNESS OF BREATH Albuterol 2.5 mg 07/05/19 09:00 07/05/19 12:15 Ventolin 0.083% Neb 2.5 Mg/3 Ml Ampul NEB 07/05/19 09:01 Not Given RTNOW ONE Albuterol 2.5 mg 07/06/19 14:00 07/06/19 13:34 Ventolin 0.083% Neb 2.5 Mg/3 Ml Ampul NEB 08/05/19 13:59 2.5 mg RTQ6 VLAERIE Administration Albuterol 2 puff 07/06/19 16:31 Ventolin Hfa 8 Gm Mdi IH 08/05/19 16:30 Q4HP PRN SHORTNESS OF BREATH Albuterol/Ipratropium 3 ml 07/04/19 23:38 Duoneb 3 Ml Ampul NEB 08/03/19 23:37 [id number] PRN SHORTNESS OF BREATH Albuterol/Ipratropium 3 ml 07/06/19 20:00 Duoneb 3 Ml Ampul NEB 08/05/19 19:59 RTQ12 VALERIE Albuterol/Ipratropium 3 ml 07/06/19 12:00 07/06/19 13:35 Duoneb 3 Ml Ampul NEB 07/06/19 12:01 3 ml RTNOW ONE Administration Aspirin 324 mg 07/04/19 22:41 07/04/19 22:56 Aspirin 81 Mg Chewable Tablet PO 07/04/19 22:42 324 mg NOW ONE Administration Aspirin 325 mg 07/04/19 23:45 07/05/19 13:55 Aspirin 325 Mg Tablet PO 08/03/19 23:44 Not Given DAILY VALERIE Diphenoxylate HCl/Atropine 1 tab 07/05/19 17:25 07/07/19 03:17 Lomotil 2.5 Mg Tablet PO 07/12/19 17:24 1 tab QIDP PRN Administration DIARRHEA Furosemide 20 mg 07/05/19 14:30 07/05/19 18:20 Lasix Inj/Pf 20 Mg/2 Ml Sdv IV 07/05/19 14:31 20 mg NOW ONE Administration Furosemide 10 mg 07/05/19 13:26 Lasix Inj/Pf 20 Mg/2 Ml Sdv IV 08/04/19 13:25 ONCEP PRN After PRBC unit has infused. Sodium Chloride 1,000 mls @ 0 mls/hr 07/04/19 18:26 07/04/19 19:55 Nacl 0.9% 1000 Ml Iv Soln IV 07/04/19 18:27 Infused BOLUS ONE Infusion Wide Open Sodium Chloride 1,770 mls @ 442.5 mls/hr 07/04/19 21:51 07/04/19 22:28 Nacl 0.9% 1000 Ml Iv Soln 30 ml/kg infuse over 4 hr (1770 ml) 07/05/19 01:50 442.5 mls/hr IV Administration BOLUS ONE Cefepime HCl 2 gm in 50 mls @ 100 mls/hr 07/04/19 23:45 07/05/19 01:42 Maxipime Rtu 2 Gm-D5w 50 Ml Premix Bag IV 07/11/19 23:44 Not Given Q12 VALERIE Sodium Chloride 250 mls @ 30 mls/hr 07/05/19 04:46 Nacl 0.9% 250 Ml Iv Soln IV 07/06/19 04:45 .DURING TRANSFUSION PRN THIS MED IS NOT "PRN" Sodium Chloride 250 mls @ 0 mls/hr 07/05/19 04:46 Nacl 0.9% 250 Ml Iv Soln IV 07/06/19 04:45 CONTINUOUS PRN AFTER EACH UNIT As Directed Potassium Chloride/Water 20 meq in 50 mls @ 25 mls/hr 07/06/19 09:30 07/06/19 16:12 Potassium Chloride [place] 20 Meq/50 Ml IV 07/06/19 15:29 Infused Q2H VALEREI Infusion Potassium Chloride/Water 20 meq in 50 mls @ 25 mls/hr 07/06/19 19:00 07/07/19 07:00 Potassium Chloride [place]ak 20 Meq/50 Ml IV 07/06/19 22:59 Infused Q2H VALERIE Infusion Iron Sucrose 100 mg 07/05/19 04:20 07/05/19 05:31 Venofer Inj/Pf 100 Mg/5 Ml Sdv IV 07/05/19 04:21 100 mg NOW ONE Administration Ketorolac Tromethamine Confirm 07/06/19 20:16 07/06/19 20:33 Toradol Inj/Pf 30 Mg/1 Ml Sdv Administered 07/06/19 20:17 Not Given Dose 30 mg .ROUTE .STK-MED ONE Ketorolac Tromethamine 15 mg 07/06/19 20:30 07/06/19 20:33 Toradol Inj/Pf 30 Mg/1 Ml Sdv IV 07/06/19 20:31 15 mg NOW ONE Administration Lorazepam 0.5 mg 07/04/19 22:09 07/04/19 22:47 Ativan Inj 2 Mg/1 Ml Vial IV 07/04/19 22:10 0.5 mg NOW ONE Administration Lorazepam 2 mg 07/05/19 13:00 07/05/19 13:56 Ativan Inj 2 Mg/1 Ml Vial IV 07/05/19 13:01 2 mg NOW ONE Administration Lorazepam 1 mg 07/05/19 17:06 07/05/19 18:21 Ativan Inj 2 Mg/1 Ml Vial IV 07/12/19 17:05 1 mg Q4HP PRN Administration ANXIETY/AGITATION Lorazepam 0.5 mg 07/06/19 10:00 07/06/19 10:11 Ativan Inj 2 Mg/1 Ml Vial IV 07/06/19 10:01 0.5 mg NOW ONE Administration Lorazepam 1 mg 07/06/19 14:05 Ativan Inj 2 Mg/1 Ml Vial IV 07/13/19 14:04 Q4HP PRN Anxiety while on BiPAP Piperacillin Sod/Tazobactam Sod 4.5 gm 07/04/19 21:51 07/04/19 22:31 Zosyn Inj 4.5 Gm Vial IV 07/04/19 21:52 4.5 gm IVBAG (ED) ONE Administration Vancomycin HCl 1,000 mg 07/04/19 21:51 07/04/19 23:08 Vancocin Inj 1000 Mg Vial IV 07/04/19 21:52 1,000 mg IVBAG (ED) ONE Administration Assessment & Plan - Diagnosis (1) Elevated troponin Is this a current diagnosis for this admission?: Yes Plan: Likely secondary to demand related ischemia resulting in type II [place] secondary to her profound anemia upon presentation, acute and severe respiratory illness and even possible sepsis. Her troponin is trending down and she did not have obvious regional wall motion abnormalities on her TTE although her RV was mildly dilated with mild to moderate RV systolic dysfunction which could be actually related to her respiratory illness. She is currently fully anticoagulated with lovenox however, from the cardiac standpoint, she does not require full anticoagulation as the mechanism of her elevated troponin is not from plaque rupture with thrombus formation but from demand related ischemia. Recommendations: -If no further reasons for full anticoagulation, may discontinue lovenox from the cardiac standpoint. -Start enteric coated baby aspirin daily. -Continue trending troponin. -Pharmacological MPS vs outpatient LHC to complete ischemic work up. -Please notify me at [phone] when the patient is discharge to arrange for cardiology follow up if the patient is not establshed with a structural ironworker. (2) Congestive heart failure Qualifiers: Heart failure type: diastolic Heart failure chronicity: acute Qualified Code(s): I50.31 - Acute diastolic (congestive) heart failure Is this a current diagnosis for this admission?: Yes Plan: She continues to be fluid overloaded with a positive fluid balance of 1.1 L per my calculations this morning. Recommendations: -Increase Lasix to 20mg IV daily and uptitrate the dose as needed to achieve a negative fluid balance as tolarated by her BP and overall clinical condition. -Consider adding low dose MACIEL-I or ARB as tolerated by BP. -Replace electrolytes. -Strict intake and output. -Low sodium diet. -Please notify me at [phone] when the patient is discharge to arrange for cardiology follow up if the patient is not establshed with a structural ironworker. -No new cardiac recommendations at this time therefore we will sign off the case for now. Please call [phone] with questions or concerns.
[2019-07-07] MEDS ORDERED: OXYCODONE-ACETAMINOPHEN 5-325 MG TABLET PO ONE (11:45)
--- NOTE | 2019-07-07 16:36 | PDOC PROGRESS REPORT ---
Subjective Progress Note for:: 07/07/19 Subjective:: DONALD ALBRIGHT is a 69 year old female with a past medical history of complicated Crohn's disease with colostomy, depression, anxiety, COPD with bronchitis, and tobacco dependence. Patient was discharged 72 hours prior after treatment of acute pancreatitis, COPD exacerbation and acute on chronic bronchitis. Patient was readmitted 07/04/2019 with sepsis secondary to healthcare associated pneumonia. Patient was seen on afternoon rounds. She was found resting in bed, comfortably on supplemental oxygen via nasal cannula at 2 L/min. She is very emotional this afternoon; tearful, with multiple anxieties. She reports that she was unprepared for her discharge and feels that it was inappropriate for her to question the decision of her doctors last admission. She was encouraged to ask all questions and voice concerns; especially leading up to discharge in order to ensure that she feels prepared and has all necessary support lined up (i.e. home health services). She tells me that she continues to have abdominal discomfort; relates this to her recent pancreatitis. She does admit that she has an element of chronic abdominal discomfort, although states this is worse from her baseline. She asked for additional pain medications. She also asks for "nerve pain" related to her proctectomy. She denies fever, chest pain, palpitations, orthopnea, nausea and vomiting. She does continue to have dyspnea at rest and nonproductive cough. She has abdominal discomfort with-output ileostomy. Reviewed plan of care with nursing. Reason For Visit: PNEUMONIA,NSTEMI (NON-ST ELEVATED MYOCARDIAL Physical Exam Vital Signs: Temp Pulse Resp BP Pulse Ox 98.2 F 71 16 141/64 H 90 L 07/07/19 11:39 07/07/19 14:16 07/07/19 14:16 07/07/19 11:39 07/07/19 14:16 Intake & Output 07/06/19 07/07/19 07/08/19 06:59 06:59 06:59 Intake Total 1000 2395 1350 Output Total 3525 3250 870 Balance -4219 -854 480 Weight 61 kg 65.2 kg General appearance: PRESENT: no acute distress, thin, well-developed Head exam: PRESENT: atraumatic, normocephalic Eye exam: PRESENT: conjunctiva pink, EOMI, PERRLA. ABSENT: scleral icterus Mouth exam: PRESENT: moist, tongue midline Respiratory exam: PRESENT: rhonchi, symmetrical, unlabored, other - Supplemental oxygen. ABSENT: rales, wheezes Cardiovascular exam: PRESENT: RRR. ABSENT: diastolic murmur, rubs, systolic murmur Pulses: PRESENT: normal dorsalis pedis pul Vascular exam: PRESENT: normal capillary refill GI/Abdominal exam: PRESENT: normal bowel sounds, soft, tenderness, other - Ileostomy. ABSENT: distended, guarding, mass, organolmegaly, rebound Rectal exam: PRESENT: deferred Gentrourinary exam: PRESENT: indwelling catheter Extremities exam: PRESENT: full ROM. ABSENT: calf tenderness, clubbing, pedal edema Neurological exam: PRESENT: alert, awake, oriented to person, oriented to place, oriented to time, oriented to situation, CN II-XII grossly intact. ABSENT: mo tor sensory deficit Psychiatric exam: PRESENT: anxious, appropriate affect. ABSENT: homicidal ideation, suicidal ideation Skin exam: PRESENT: dry, intact, warm. ABSENT: cyanosis, rash Results Laboratory Results: 07/07/19 05:34 07/07/19 05:34 07/06/19 07/07/19 07/07/19 18:15 05:34 05:34 WBC 8.6 RBC 3.30 L Hgb 10.7 L Hct 30.4 L MCV 92 MCH 32.6 MCHC 35.3 RDW 15.3 H Plt Count 252 Sodium 137.0 Potassium 2.8 L* 3.8 D Chloride 107 Carbon Dioxide 18 L Anion Gap 12 BUN 25 H Creatinine 0.94 Est GFR ( Amer) > 60 Glucose 166 H Calcium 8.7 07/05/19 14:00 Stool - Stool - Final 07/04/19 07/04/19 07/05/19 18:22 18:22 00:53 Creatine Kinase 45 CK-MB (CK-2) 2.59 Troponin I 0.204 NT-Pro-B Natriuret Pep 31650 H 07/05/19 07/05/19 07/05/19 00:53 00:53 05:17 Creatine Kinase 33 41 CK-MB (CK-2) 2.13 Troponin I 0.246 NT-Pro-B Natriuret Pep 07/05/19 07/05/19 07/05/19 05:17 15:11 15:11 Creatine Kinase 33 CK-MB (CK-2) 2.95 1.89 Troponin I 0.192 0.185 NT-Pro-B Natriuret Pep Impressions: Chest X-Ray 07/05/19 00:00 IMPRESSION: Persistent diffuse bilateral interstitial opacities with mildly increased bibasilar opacities and small bilateral effusions suggestive of edema. Superimposed infection is not excluded. Assessment and Plan - Diagnosis (1) Pneumonia Qualifiers: Pneumonia type: due to unspecified organism Laterality: bilateral Lung location: unspecified part of lung Qualified Code(s): J18.9 - Pneumonia, unspecified organism Is this a current diagnosis for this admission?: Yes Plan: Improved; no longer in respiratory distress. Maintaining oxygen saturations on Nasal cannula. Blood cultures NGTD Sputum cultures C albicans COVID-19 testing negative Patient is admitted to [facility] on continuous cardiac telemetry. Patient is provided supplemental oxygen as needed maintain saturations greater than 89%. Patient is empirically placed on vancomycin and cefepime; Day #3 Scheduled and as needed nebulizer treatments. Mucomyst nebs twice daily. Mucinex twice daily She is placed on Robitussin as needed. Pulmonary toilet is encouraged with incentive spirometer, flutter valve, early ambulation. Consider chest physiotherapy. (2) Congestive heart failure Qualifiers: Heart failure type: diastolic Heart failure chronicity: acute Qualified Code(s): I50.31 - Acute diastolic (congestive) heart failure Is this a current diagnosis for this admission?: Yes Plan: Cardiology was consulted. Echocardiogram revealed normal LV EF with some RV dysfunction. HFpEF is likely secondary to pulmonary infection and complicated by anemia; elevated troponin and CHF exacerbation secondary to demand related ischemia. Per Dr. Dr. Stone; will increase furosemide to 20 mg IV daily Start lisinopril. Cardiac diet. Daily weights, strict I&Os. Notify Dr. Stone when ready for discharge; plans to arrange for outpatient ischemic work up. (3) COPD (chronic obstructive pulmonary disease) Qualifiers: COPD type: emphysema Emphysema type: centrilobular Qualified Code(s): J43.2 - Centrilobular emphysema Is this a current diagnosis for this admission?: Yes Plan: Will provide supplemental oxygen as needed to maintain saturations greater than 89%. Continue on scheduled and as needed MDI Provide IV Solu-Medrol. Mucinex twice daily. Robitussin as needed. Pulmonary toilet is encouraged with incentive spirometer, flutter valve, and early ambulation. (4) Elevated troponin Is this a current diagnosis for this admission?: Yes Plan: Trending down Patient confirms that she is chest pain-free; denies palpitations. Cardiology is consulted. Appreciate Dr. Stone's assistance. Elevated troponin represents demand mismatch ischemia related to her acute respiratory failure/distress as a consequence of her multifocal pneumonia. Resume Aspirin Received full dose Lovenox x48 hrs; will now discontinue. Heparin for DVT prophylaxis. (5) Anemia Qualifiers: Anemia type: other cause Is this a current diagnosis for this admission?: Yes Plan: Patient with history of chronic anemia. Baseline hemoglobin of 8.5. Hgb 8.5-> 7.7-> 9.3-> 10.1-> 10.7 Now s/p 1 unit PRBC Hgb improved to 10.1 (6) Sepsis due to pneumonia Is this a current diagnosis for this admission?: Yes Plan: Patient presented to the emergency department with sepsis without shock secondary to healthcare associated pneumonia. She received appropriate IV fluid resuscitation followed by 1 unit PRBC. Blood culture, sputum culture, urine culture, stool culture pending. COVID-19 testing negative Antibiotics as above. (7) Chronic pain Qualifiers: Chronic pain type: other chronic pain Qualified Code(s): G89.29 - Other chronic pain Is this a current diagnosis for this admission?: Yes Plan: Home dose gabapentin Oxycodone and Tylenol prn Trial of Elavil; will taper trazodone (8) Hypokalemia Is this a current diagnosis for this admission?: Yes Plan: Replete. Likely r/t high output ileostomy, poor p.o. intake, and furosemide. Magnesium is nml. Received multiple K-Riders Follow chemistry - Time Time Spent with patient: 35 or more minutes Medications reviewed and adjusted accordingly: Yes Anticipated discharge: Home with Homehealth
[2019-07-07] MEDS: VANCOMYCIN HCL 1,250 MG in DEXTROSE 5%-WATER 250 ML IV SCH (17:08)
[2019-07-07] MEDS: POTASSI CL 20 MEQ/D5NS 1L 20 MEQ/1,000 ML RTUINJ IV PRN (17:08)
[2019-07-07 17:26] LABS: ANION GAP 8 (5-19); BLOOD UREA NITROGEN 29 mg/dL (7-20); CALCIUM 8.8 mg/dL (8.4-10.2); CARBON DIOXIDE 22 mmol/L (22-30); CHLORIDE 107 mmol/L (98-107); GLUCOSE 139 mg/dL (75-110); POTASSIUM 3.5 mmol/L (3.6-5.0)
[2019-07-07 17:27] LABS: VANCOMYCIN,TROUGH 11.5 ug/mL (5.0-20.0)
[2019-07-07] MEDS: OXYCODONE-ACETAMINOPHEN 5-325 MG TABLET PO PRN (18:16)
[2019-07-07] MEDS: ACETYLCYSTEINE 20% SOLN 800 MG/4 ML VIAL.NEB NEB SCH (20:52)
[2019-07-07] MEDS: MELATONIN 3 MG TABLET PO SCH (21:35)
[2019-07-07] MEDS: ROPINIROLE HCL 1 MG TABLET PO SCH (21:35)
[2019-07-07] MEDS: TRAZODONE HCL 50 MG TABLET PO SCH (21:36)
[2019-07-07] MEDS: AMITRIPTYLINE HCL 25 MG TABLET PO SCH (21:36)
[2019-07-07] MEDS: ASPIRIN 81 MG TABLET, CHEWABLE PO SCH (21:36)
[2019-07-07] MEDS: HEPARIN SOD (PORCINE) 5,000 UNIT/ML 1 ML VIAL SUBCUT SCH (21:40)
[2019-07-08] MEDS: IPRATROPIUM/ALBUTEROL 0.5-2.5 MG/3 ML AMPUL NEB SCH ×4 (02:58→20:49)
[2019-07-08] MEDS: OXYCODONE-ACETAMINOPHEN 5-325 MG TABLET PO PRN ×4 (03:02→22:15)
[2019-07-08] MEDS: METHYLPREDNISOLONE INJ 40 MG/1 ML SDV IV SCH ×2 (06:29→14:30)
[2019-07-08] MEDS: GABAPENTIN 300 MG CAPSULE PO SCH ×3 (06:29→21:33)
[2019-07-08] MEDS: HEPARIN SOD (PORCINE) 5,000 UNIT/ML 1 ML VIAL SUBCUT SCH ×3 (06:34→21:41)
[2019-07-08 07:15] LABS: HEMATOCRIT 31.5 % (36.0-47.0); HEMOGLOBIN 10.9 g/dL (12.0-15.5); MEAN CORPUSCULAR HEMOGLOBIN 32.1 pg (27.0-33.4); MEAN CORPUSCULAR HGB CONC 34.4 g/dL (32.0-36.0); MEAN CORPUSCULAR VOLUME 93 fl (80-97); PLATELET COUNT 268 10^3/uL (150-450); RED BLOOD COUNT 3.38 10^6/uL (3.72-5.28); RED CELL DISTRIBUTION WIDTH 15.5 % (11.5-14.0)
[2019-07-08 07:35] LABS: ANION GAP 11 (5-19); BLOOD UREA NITROGEN 27 mg/dL (7-20); CALCIUM 8.7 mg/dL (8.4-10.2); CARBON DIOXIDE 20 mmol/L (22-30); CHLORIDE 107 mmol/L (98-107); GLUCOSE 147 mg/dL (75-110); POTASSIUM 3.8 mmol/L (3.6-5.0)
[2019-07-08] MEDS: ACETYLCYSTEINE 20% SOLN 800 MG/4 ML VIAL.NEB NEB SCH ×2 (09:06→20:48)
[2019-07-08] MEDS: DIPHENOXYLATE HCL/ATROP SULF 2.5-0.025 MG TABLET PO SCH ×4 (09:17→21:33)
[2019-07-08] MEDS: ASCORBIC ACID 500 MG TABLET PO SCH ×2 (09:17→17:02)
[2019-07-08] MEDS: MAGNESIUM OXIDE 400 MG TABLET PO SCH (09:18)
[2019-07-08] MEDS: LISINOPRIL 10 MG TABLET PO SCH (09:18)
[2019-07-08] MEDS: CETIRIZINE 10 MG TABLET PO SCH (09:18)
[2019-07-08] MEDS: FLUCONAZOLE 100 MG TABLET PO SCH (09:18)
[2019-07-08] MEDS: BUSPIRONE HCL 10 MG TABLET PO SCH ×2 (09:18→21:32)
[2019-07-08] MEDS: GUAIFENESIN 600 MG TABLET.SA PO SCH ×2 (09:18→21:34)
[2019-07-08] MEDS: CHOLECALCIFEROL (D3) 400 UNIT TABLET PO SCH (09:18)
[2019-07-08] MEDS: ALBUTEROL SULFATE HFA (90 MCG/PUFF) 200 PUFF/8.5 GM MDI IH PRN (09:19)
[2019-07-08] MEDS: CEFEPIME HCL 2 GM in DEXTROSE 5%-WATER 50 ML IV SCH ×2 (09:24→21:34)
[2019-07-08] MEDS: ZINC SULFATE 220 MG CAPSULE PO SCH (09:51)
[2019-07-08] MEDS ORDERED: VANCOMYCIN HCL 500 MG in DEXTROSE 5%-WATER 100 ML IV SCH (10:00)
[2019-07-08] MEDS ORDERED: FUROSEMIDE INJ/PF 20 MG/2 ML SDV IV SCH (10:00)
[2019-07-08] MEDS: POTASSI CL 20 MEQ/D5NS 1L 20 MEQ/1,000 ML RTUINJ IV PRN (11:12)
--- NOTE | 2019-07-08 14:36 | PDOC PROGRESS REPORT ---
Subjective Progress Note for:: 07/08/19 Subjective:: Patient is a bit agitated and upset this morning. Denies chest pain or dyspnea. Reason For Visit: PNEUMONIA,NSTEMI (NON-ST ELEVATED MYOCARDIAL Physical Exam Vital Signs: Temp Pulse Resp BP Pulse Ox 98.3 F 72 16 149/57 H 95 07/08/19 02:56 07/08/19 09:06 07/08/19 09:06 07/08/19 02:56 07/08/19 09:06 Intake & Output 07/07/19 07/08/19 07/09/19 06:59 06:59 06:59 Intake Total 2395 2872 Output Total 3250 2070 Balance -855 802 Weight 65.2 kg 54.5 kg General appearance: PRESENT: no acute distress, well-developed, well-nourished, other - Agitated and upset. Head exam: PRESENT: atraumatic, normocephalic Eye exam: PRESENT: conjunctiva pink, conjunctiva pale, EOMI Respiratory exam: PRESENT: crackles, decreased breath sounds, symmetrical, unlabored Cardiovascular exam: PRESENT: RRR, +S1, +S2 Pulses: PRESENT: normal radial pulses GI/Abdominal exam: PRESENT: soft Rectal exam: PRESENT: deferred Musculoskeletal exam: PRESENT: normal inspection Neurological exam: PRESENT: alert, awake, oriented to person, oriented to place, oriented to situation Psychiatric exam: PRESENT: agitated, other - Upset Skin exam: PRESENT: dry, intact, normal color Results Laboratory Results: 07/08/19 06:25 07/08/19 06:25 07/07/19 07/08/19 07/08/19 16:35 06:25 06:25 WBC 15.0 H RBC 3.38 L Hgb 10.9 L Hct 31.5 L MCV 93 MCH 32.1 MCHC 34.4 RDW 15.5 H Plt Count 268 Sodium 137.4 137.8 Potassium 3.5 L 3.8 Chloride 107 107 Carbon Dioxide 22 20 L Anion Gap 8 11 BUN 29 H 27 H Creatinine 0.94 0.90 Est GFR ( Amer) > 60 > 60 Glucose 139 H 147 H Calcium 8.8 8.7 07/05/19 14:00 Stool - Stool - Final 07/05/19 14:00 Stool - Stool Stool Culture - Final C.albicans/C.dubliniensis 07/04/19 07/04/19 07/05/19 18:22 18:22 00:53 Creatine Kinase 45 CK-MB (CK-2) 2.59 Troponin I 0.204 NT-Pro-B Natriuret Pep 67980 H 07/05/19 07/05/19 07/05/19 00:53 00:53 05:17 Creatine Kinase 33 41 CK-MB (CK-2) 2.13 Troponin I 0.246 NT-Pro-B Natriuret Pep 07/05/19 07/05/19 07/05/19 05:17 15:11 15:11 Creatine Kinase 33 CK-MB (CK-2) 2.95 1.89 Troponin I 0.192 0.185 NT-Pro-B Natriuret Pep 07/08/19 06:25 Creatine Kinase CK-MB (CK-2) Troponin I 0.040 NT-Pro-B Natriuret Pep EKG Comments: Twelve-lead EKG 07/04/2019 Sinus rhythm, 83 bpm, normal AV conduction, QTC is 442 ms Impressions: Chest X-Ray 07/05/19 00:00 IMPRESSION: Persistent diffuse bilateral interstitial opacities with mildly increased bibasilar opacities and small bilateral effusions suggestive of edema. Superimposed infection is not excluded. Assessment & Plan - Diagnosis (1) NSTEMI (non-ST elevated myocardial infarction) Is this a current diagnosis for this admission?: Yes Plan: Supportive care Likely demand mediated ischemia in the setting of COPD, hypoxia and healthcare associated pneumonia Unlikely to be acute coronary syndrome Continue aspirin 81 mg daily Statin as well as beta blockers as feasible Outpatient re-stratification if necessary based on clinical course and symptoms (2) COPD (chronic obstructive pulmonary disease) Qualifiers: COPD type: emphysema Emphysema type: centrilobular Qualified Code(s): J43.2 - Centrilobular emphysema Is this a current diagnosis for this admission?: Yes Plan: Not wheezing at the moment Supportive care. Respiratory toilet. (3) Right lower lobe pneumonia Qualifiers: Pneumonia type: due to unspecified organism Is this a current diagnosis for this admission?: Yes Plan: Treatment of pneumonia with antibiotics per primary team. Appears to be improving.
--- NOTE | 2019-07-08 16:25 | PDOC PROGRESS REPORT ---
Subjective Progress Note for:: 07/08/19 Reason For Visit: PNEUMONIA,NSTEMI (NON-ST ELEVATED MYOCARDIAL Physical Exam Vital Signs: Temp Pulse Resp BP Pulse Ox 98.3 F 57 L 16 149/57 H 98 07/08/19 02:56 07/08/19 14:44 07/08/19 14:44 07/08/19 02:56 07/08/19 14:44 Intake & Output 07/07/19 07/08/19 07/09/19 06:59 06:59 06:59 Intake Total 2395 2872 Output Total 3250 2070 Balance -855 802 Weight 65.2 kg 54.5 kg General appearance: PRESENT: no acute distress Head exam: PRESENT: atraumatic, normocephalic Eye exam: PRESENT: conjunctiva pink, EOMI, PERRLA. ABSENT: scleral icterus Ear exam: PRESENT: normal external ear exam Mouth exam: PRESENT: moist, tongue midline Neck exam: ABSENT: carotid bruit, JVD, lymphadenopathy, thyromegaly Respiratory exam: PRESENT: clear to auscultation heydi. ABSENT: rales, rhonchi, wheezes Cardiovascular exam: PRESENT: RRR, +S1, +S2. ABSENT: diastolic murmur, rubs, systolic murmur Pulses: PRESENT: normal dorsalis pedis pul Vascular exam: PRESENT: normal capillary refill GI/Abdominal exam: PRESENT: normal bowel sounds, soft, other - ileostomy. ABSENT: distended, guarding, mass, organolmegaly, rebound, tenderness Rectal exam: PRESENT: deferred Extremities exam: PRESENT: full ROM. ABSENT: calf tenderness, clubbing, pedal edema Neurological exam: PRESENT: alert, awake, oriented to person, oriented to place, oriented to time, oriented to situation, CN II-XII grossly intact. ABSENT: motor sensory deficit Psychiatric exam: PRESENT: appropriate affect, normal mood. ABSENT: homicidal ideation, suicidal ideation Skin exam: PRESENT: dry, intact, warm. ABSENT: cyanosis, rash Results Laboratory Results: 07/08/19 06:25 07/08/19 06:25 07/07/19 07/08/19 07/08/19 16:35 06:25 06:25 WBC 15.0 H RBC 3.38 L Hgb 10.9 L Hct 31.5 L MCV 93 MCH 32.1 MCHC 34.4 RDW 15.5 H Plt Count 268 Sodium 137.4 137.8 Potassium 3.5 L 3.8 Chloride 107 107 Carbon Dioxide 22 20 L Anion Gap 8 11 BUN 29 H 27 H Creatinine 0.94 0.90 Est GFR ( Amer) > 60 > 60 Glucose 139 H 147 H Calcium 8.8 8.7 07/05/19 14:00 Stool - Stool - Final 07/05/19 14:00 Stool - Stool Stool Culture - Final C.albicans/C.dubliniensis 07/04/19 07/04/19 07/05/19 18:22 18:22 00:53 Creatine Kinase 45 CK-MB (CK-2) 2.59 Troponin I 0.204 NT-Pro-B Natriuret Pep 79331 H 07/05/19 07/05/19 07/05/19 00:53 00:53 05:17 Creatine Kinase 33 41 CK-MB (CK-2) 2.13 Troponin I 0.246 NT-Pro-B Natriuret Pep 07/05/19 07/05/19 07/05/19 05:17 15:11 15:11 Creatine Kinase 33 CK-MB (CK-2) 2.95 1.89 Troponin I 0.192 0.185 NT-Pro-B Natriuret Pep 07/08/19 06:25 Creatine Kinase CK-MB (CK-2) Troponin I 0.040 NT-Pro-B Natriuret Pep Impressions: Chest X-Ray 07/05/19 00:00 IMPRESSION: Persistent diffuse bilateral interstitial opacities with mildly increased bibasilar opacities and small bilateral effusions suggestive of edema. Superimposed infection is not excluded. Assessment and Plan - Diagnosis (1) Chronic pain Qualifiers: Chronic pain type: other chronic pain Qualified Code(s): G89.29 - Other chronic pain Is this a current diagnosis for this admission?: Yes (2) Congestive heart failure Qualifiers: Heart failure type: diastolic Heart failure chronicity: acute Qualified Code(s): I50.31 - Acute diastolic (congestive) heart failure Is this a current diagnosis for this admission?: Yes Plan: Cardiology was consulted. Echocardiogram revealed normal LV EF with some RV dysfunction. HFpEF is likely secondary to pulmonary infection and complicated by anemia; elevated troponin and CHF exacerbation secondary to demand related ischemia. Per Dr. Dr. Stone; will increase furosemide to 20 mg IV daily Start lisinopril. Cardiac diet. Daily weights, strict I&Os. Notify Dr. Stone when ready for discharge; plans to arrange for outpatient ischemic work up. (3) Elevated troponin Is this a current diagnosis for this admission?: Yes Plan: Trending down Patient confirms that she is chest pain-free; denies palpitations. Cardiology is consulted. Appreciate Dr. Stone's assistance. Elevated troponin represents demand mismatch ischemia related to her acute respiratory failure/distress as a consequence of her multifocal pneumonia. Resume Aspirin Received full dose Lovenox x48 hrs; will now discontinue. Heparin for DVT prophylaxis. (4) Pneumonia Qualifiers: Pneumonia type: due to unspecified organism Laterality: bilateral Lung location: unspecified part of lung Qualified Code(s): J18.9 - Pneumonia, unspecified organism Is this a current diagnosis for this admission?: Yes Plan: Improved; no longer in respiratory distress. Maintaining oxygen saturations on Nasal cannula. Blood cultures NGTD Sputum cultures C albicans COVID-19 testing negative Patient is admitted to [facility] on continuous cardiac telemetry. Patient is provided supplemental oxygen as needed maintain saturations greater than 89%. Patient is empirically placed on vancomycin and cefepime; Day #3 Scheduled and as needed nebulizer treatments. Mucomyst nebs twice daily. Mucinex twice daily She is placed on Robitussin as needed. Pulmonary toilet is encouraged with incentive spirometer, flutter valve, early ambulation. Consider chest physiotherapy. (5) COPD (chronic obstructive pulmonary disease) Qualifiers: COPD type: unspecified COPD Qualified Code(s): J44.9 - Chronic obstructive pulmonary disease, unspecified Is this a current diagnosis for this admission?: Yes (6) Chronic pain syndrome Is this a current diagnosis for this admission?: Yes (7) Ileostomy present Is this a current diagnosis for this admission?: Yes - Plan Summary Summary: Patient admitted with healthcare associated pneumonia after being recently discharged from the hospital for treatment of acute bronchitis, COPD exacerbation and acute on chronic bronchitis. She continues complain of abdominal discomfort likely from her recent pancreatitis patient does have an output ileostomy in place secondary to complicated Crohn's disease with colostomy tested negative for COVID-19. Currently on vancomycin and cefepime day 4. Will look to de-escalate antibiotics as appropriate Pneumonia healthcare associated Congestive heart failure COPD exacerbation currently on Solu-Medrol will change to oral prednisone Elevated troponin secondary to demand mismatch related to her acute respiratory failure and multifocal pneumonia. She was treated with full dose Lovenox for 48 hours and currently on aspirin and prophylactic heparin Anemia this was 1 unit packed red blood cells This is secondary to pneumonia solved Tonic pain syndrome Hypokalemia we will continue to monitor ileostomy
[2019-07-08] MEDS: PREDNISONE 20 MG TABLET PO SCH (17:02)
[2019-07-08] MEDS: MELATONIN 3 MG TABLET PO SCH (21:32)
[2019-07-08] MEDS: ASPIRIN 81 MG TABLET, CHEWABLE PO SCH (21:33)
[2019-07-08] MEDS: AMITRIPTYLINE HCL 25 MG TABLET PO SCH (21:33)
[2019-07-08] MEDS: ROPINIROLE HCL 1 MG TABLET PO SCH (21:33)
[2019-07-08] MEDS: TRAZODONE HCL 50 MG TABLET PO SCH (21:33)
[2019-07-09] MEDS: POTASSI CL 20 MEQ/D5NS 1L 20 MEQ/1,000 ML RTUINJ IV PRN (01:33)
[2019-07-09] MEDS: IPRATROPIUM/ALBUTEROL 0.5-2.5 MG/3 ML AMPUL NEB SCH ×4 (01:50→20:20)
[2019-07-09] MEDS: GABAPENTIN 300 MG CAPSULE PO SCH ×3 (05:26→21:11)
[2019-07-09] MEDS: OXYCODONE-ACETAMINOPHEN 5-325 MG TABLET PO PRN ×3 (05:26→21:44)
[2019-07-09] MEDS: HEPARIN SOD (PORCINE) 5,000 UNIT/ML 1 ML VIAL SUBCUT SCH ×3 (05:26→21:06)
[2019-07-09 05:53] LABS: HEMATOCRIT 30.8 % (36.0-47.0); HEMOGLOBIN 10.3 g/dL (12.0-15.5); MEAN CORPUSCULAR HEMOGLOBIN 31.5 pg (27.0-33.4); MEAN CORPUSCULAR HGB CONC 33.4 g/dL (32.0-36.0); MEAN CORPUSCULAR VOLUME 94 fl (80-97); PLATELET COUNT 248 10^3/uL (150-450); RED BLOOD COUNT 3.26 10^6/uL (3.72-5.28); RED CELL DISTRIBUTION WIDTH 16.1 % (11.5-14.0); WHITE BLOOD COUNT 14.5 10^3/uL (4.0-10.5)
[2019-07-09 06:25] LABS: ABSOLUTE LYMPHOCYTES# (MANUAL) 0.3 10^3/uL (0.5-4.7); BAND NEUTROPHILS % (MANUAL) 1 % (3-5); BASOPHILS % (MANUAL) 0 % (0-2); EOSINOPHILS % (MANUAL) 0 % (0-6); LYMPHOCYTES % (MANUAL) 2 % (13-45); MONOCYTES % (MANUAL) 7 % (3-13); SEGMENTED NEUTROPHILS % (MAN) 90 % (42-78); TOTAL CELLS COUNTED 100
[2019-07-09 06:26] LABS: ANISOCYTOSIS SLIGHT; HYPERSEGMENTED NEUTROPHILS PRESENT; PLATELET CLUMPS PRESENT; PLATELET COMMENT ADEQUATE
[2019-07-09] MEDS: ACETYLCYSTEINE 20% SOLN 800 MG/4 ML VIAL.NEB NEB SCH ×2 (08:50→20:21)
[2019-07-09] MEDS: MAGNESIUM OXIDE 400 MG TABLET PO SCH (10:00)
[2019-07-09] MEDS: LISINOPRIL 10 MG TABLET PO SCH (10:00)
[2019-07-09] MEDS: PREDNISONE 20 MG TABLET PO SCH ×2 (10:18→18:23)
[2019-07-09] MEDS: GUAIFENESIN 600 MG TABLET.SA PO SCH ×2 (10:19→21:11)
[2019-07-09] MEDS: DIPHENOXYLATE HCL/ATROP SULF 2.5-0.025 MG TABLET PO SCH ×4 (10:19→21:11)
[2019-07-09] MEDS: ASCORBIC ACID 500 MG TABLET PO SCH ×2 (10:20→18:22)
[2019-07-09] MEDS: BUSPIRONE HCL 10 MG TABLET PO SCH ×2 (10:20→21:12)
[2019-07-09] MEDS: CETIRIZINE 10 MG TABLET PO SCH (10:20)
[2019-07-09] MEDS: ZINC SULFATE 220 MG CAPSULE PO SCH (10:21)
[2019-07-09] MEDS: FLUCONAZOLE 100 MG TABLET PO SCH (10:21)
[2019-07-09] MEDS: CHOLECALCIFEROL (D3) 400 UNIT TABLET PO SCH (10:21)
[2019-07-09] MEDS: CEFEPIME HCL 2 GM in DEXTROSE 5%-WATER 50 ML IV SCH ×2 (10:23→21:45)
[2019-07-09] MEDS: FUROSEMIDE 20 MG TABLET PO SCH (10:29)
--- NOTE | 2019-07-09 12:11 | PDOC PROGRESS REPORT ---
Subjective Progress Note for:: 07/09/19 Subjective:: Patient is agitated again but less angry. Does not endorse any chest pain or dyspnea. Reason For Visit: PNEUMONIA,NSTEMI (NON-ST ELEVATED MYOCARDIAL Physical Exam Vital Signs: Temp Pulse Resp BP Pulse Ox 97.4 F 62 16 125/61 95 07/09/19 08:35 07/09/19 08:53 07/09/19 08:53 07/09/19 08:35 07/09/19 08:53 Intake & Output 07/08/19 07/09/19 07/10/19 06:59 06:59 06:59 Intake Total 2872 1880 Output Total 2070 275 Balance 802 1605 Weight 54.5 kg 55.3 kg General appearance: PRESENT: cooperative, well-developed, well-nourished Head exam: PRESENT: atraumatic, normocephalic Eye exam: PRESENT: conjunctiva pink, EOMI Mouth exam: PRESENT: moist Respiratory exam: PRESENT: decreased breath sounds, symmetrical, unlabored Cardiovascular exam: PRESENT: RRR, +S1, +S2 Pulses: PRESENT: normal radial pulses GI/Abdominal exam: PRESENT: soft Rectal exam: PRESENT: deferred Musculoskeletal exam: PRESENT: normal inspection Neurological exam: PRESENT: alert, awake, oriented to person, oriented to place Psychiatric exam: PRESENT: agitated Skin exam: PRESENT: dry, intact, normal color Results Laboratory Results: 07/09/19 05:08 07/08/19 06:25 07/09/19 05:08 WBC 14.5 H RBC 3.26 L Hgb 10.3 L Hct 30.8 L MCV 94 MCH 31.5 MCHC 33.4 RDW 16.1 H Plt Count 248 Seg Neutrophils % Not Reportable 07/04/19 07/04/19 07/05/19 18:22 18:22 00:53 Creatine Kinase 45 CK-MB (CK-2) 2.59 Troponin I 0.204 NT-Pro-B Natriuret Pep 47591 H 07/05/19 07/05/19 07/05/19 00:53 00:53 05:17 Creatine Kinase 33 41 CK-MB (CK-2) 2.13 Troponin I 0.246 NT-Pro-B Natriuret Pep 07/05/19 07/05/19 07/05/19 05:17 15:11 15:11 Creatine Kinase 33 CK-MB (CK-2) 2.95 1.89 Troponin I 0.192 0.185 NT-Pro-B Natriuret Pep 07/08/19 06:25 Creatine Kinase CK-MB (CK-2) Troponin I 0.040 NT-Pro-B Natriuret Pep Impressions: Chest X-Ray 07/05/19 00:00 IMPRESSION: Persistent diffuse bilateral interstitial opacities with mildly in creased bibasilar opacities and small bilateral effusions suggestive of edema. Superimposed infection is not excluded. Assessment & Plan - Diagnosis (1) NSTEMI (non-ST elevated myocardial infarction) Is this a current diagnosis for this admission?: Yes Plan: Supportive care Likely demand mediated ischemia in the setting of COPD, hypoxia and healthcare associated pneumonia Unlikely to be acute coronary syndrome Continue aspirin 81 mg daily Statin as well as beta blockers as feasible (2) COPD (chronic obstructive pulmonary disease) Qualifiers: COPD type: emphysema Emphysema type: centrilobular Qualified Code(s): J43.2 - Centrilobular emphysema Is this a current diagnosis for this admission?: Yes Plan: No dyspnea Supportive care. Respiratory toilet. (3) Right lower lobe pneumonia Qualifiers: Pneumonia type: due to unspecified organism Is this a current diagnosis for this admission?: Yes Plan: Treatment of pneumonia with antibiotics per primary team Appears to be improving.
--- NOTE | 2019-07-09 17:04 | PDOC PROGRESS REPORT ---
Subjective Progress Note for:: 07/09/19 Subjective:: Wants to go home Reason For Visit: PNEUMONIA,NSTEMI (NON-ST ELEVATED MYOCARDIAL Physical Exam Vital Signs: Temp Pulse Resp BP Pulse Ox 98.8 F 63 16 166/55 H 96 07/09/19 12:24 07/09/19 13:57 07/09/19 13:57 07/09/19 12:24 07/09/19 13:57 Intake & Output 07/08/19 07/09/19 07/10/19 06:59 06:59 06:59 Intake Total 2872 1880 870 Output Total 2070 275 450 Balance 802 1605 420 Weight 54.5 kg 55.3 kg General appearance: PRESENT: no acute distress, thin Respiratory exam: PRESENT: clear to auscultation heydi, rhonchi, unlabored GI/Abdominal exam: PRESENT: other - ileostomy with greenish stool Rectal exam: PRESENT: deferred Musculoskeletal exam: PRESENT: ambulatory Neurological exam: PRESENT: alert, oriented to person, oriented to place, oriented to time Results Laboratory Results: 07/09/19 05:08 07/08/19 06:25 07/09/19 05:08 WBC 14.5 H RBC 3.26 L Hgb 10.3 L Hct 30.8 L MCV 94 MCH 31.5 MCHC 33.4 RDW 16.1 H Plt Count 248 Seg Neutrophils % Not Reportable 07/04/19 07/04/19 07/05/19 18:22 18:22 00:53 Creatine Kinase 45 CK-MB (CK-2) 2.59 Troponin I 0.204 NT-Pro-B Natriuret Pep 90005 H 07/05/19 07/05/19 07/05/19 00:53 00:53 05:17 Creatine Kinase 33 41 CK-MB (CK-2) 2.13 Troponin I 0.246 NT-Pro-B Natriuret Pep 07/05/19 07/05/19 07/05/19 05:17 15:11 15:11 Creatine Kinase 33 CK-MB (CK-2) 2.95 1.89 Troponin I 0.192 0.185 NT-Pro-B Natriuret Pep 07/08/19 06:25 Creatine Kinase CK-MB (CK-2) Troponin I 0.040 NT-Pro-B Natriuret Pep Impressions: Chest X-Ray 07/05/19 00:00 IMPRESSION: Persistent diffuse bilateral interstitial opacities with mildly i ncreased bibasilar opacities and small bilateral effusions suggestive of edema. Superimposed infection is not excluded. Assessment and Plan - Diagnosis (1) Chronic pain Qualifiers: Chronic pain type: other chronic pain Qualified Code(s): G89.29 - Other chronic pain Is this a current diagnosis for this admission?: Yes (2) Congestive heart failure Qualifiers: Heart failure type: diastolic Heart failure chronicity: acute Qualified Code(s): I50.31 - Acute diastolic (congestive) heart failure Is this a current diagnosis for this admission?: Yes (3) Elevated troponin Is this a current diagnosis for this admission?: Yes (4) Pneumonia Qualifiers: Pneumonia type: due to unspecified organism Laterality: bilateral Lung location: unspecified part of lung Qualified Code(s): J18.9 - Pneumonia, unspecified organism Is this a current diagnosis for this admission?: Yes (5) COPD (chronic obstructive pulmonary disease) Qualifiers: COPD type: unspecified COPD Qualified Code(s): J44.9 - Chronic obstructive pulmonary disease, unspecified Is this a current diagnosis for this admission?: Yes (6) Chronic pain syndrome Is this a current diagnosis for this admission?: Yes (7) Ileostomy present Is this a current diagnosis for this admission?: Yes - Plan Summary Summary: Patient admitted with healthcare associated pneumonia after being recently discharged from the hospital for treatment of acute bronchitis, COPD exacerbation and acute on chronic bronchitis. She continues complain of abdominal discomfort likely from her recent pancreatitis patient does have an output ileostomy in place secondary to complicated Crohn's disease with colostomy tested negative for COVID-19. Currently on vancomycin and cefepime day 4. Will look to de-escalate antibiotics as appropriate Pneumonia healthcare associated Congestive heart failure COPD exacerbation currently on Solu-Medrol will change to oral prednisone Elevated troponin secondary to demand mismatch related to her acute respiratory failure and multifocal pneumonia. She was treated with full dose Lovenox for 48 hours and currently on aspirin and prophylactic heparin Anemia this was 1 unit packed red blood cells This is secondary to pneumonia resolved Chronic pain syndrome Hypokalemia we will continue to monitor ileostomy Go cytosis likely secondary to steroids. I have changed her steroids from Solu- Medrol to prednisone. I will follow-up with CBC in a.m. If she remains stable she can be discharged in a.m.
[2019-07-09] MEDS: TRAZODONE HCL 50 MG TABLET PO SCH (21:11)
[2019-07-09] MEDS: ASPIRIN 81 MG TABLET, CHEWABLE PO SCH (21:11)
[2019-07-09] MEDS: AMITRIPTYLINE HCL 25 MG TABLET PO SCH (21:11)
[2019-07-09] MEDS: ROPINIROLE HCL 1 MG TABLET PO SCH (21:11)
[2019-07-09] MEDS: MELATONIN 3 MG TABLET PO SCH (21:12)
[2019-07-10] MEDS: IPRATROPIUM/ALBUTEROL 0.5-2.5 MG/3 ML AMPUL NEB SCH ×4 (03:15→20:44)
[2019-07-10] MEDS: OXYCODONE-ACETAMINOPHEN 5-325 MG TABLET PO PRN ×4 (04:01→22:39)
[2019-07-10] MEDS: GABAPENTIN 300 MG CAPSULE PO SCH ×3 (05:30→21:31)
[2019-07-10] MEDS: HEPARIN SOD (PORCINE) 5,000 UNIT/ML 1 ML VIAL SUBCUT SCH ×3 (05:38→21:32)
[2019-07-10 06:09] LABS: HEMATOCRIT 33.5 % (36.0-47.0); HEMOGLOBIN 11.3 g/dL (12.0-15.5); MEAN CORPUSCULAR HEMOGLOBIN 31.9 pg (27.0-33.4); MEAN CORPUSCULAR HGB CONC 33.7 g/dL (32.0-36.0); MEAN CORPUSCULAR VOLUME 95 fl (80-97); PLATELET COUNT 310 10^3/uL (150-450); RED BLOOD COUNT 3.54 10^6/uL (3.72-5.28); RED CELL DISTRIBUTION WIDTH 16.2 % (11.5-14.0)
[2019-07-10 06:41] LABS: ABSOLUTE LYMPHOCYTES# (MANUAL) 0.2 10^3/uL (0.5-4.7); BAND NEUTROPHILS % (MANUAL) 3 % (3-5); BASOPHILS % (MANUAL) 0 % (0-2); EOSINOPHILS % (MANUAL) 0 % (0-6); LYMPHOCYTES % (MANUAL) 1 % (13-45); MONOCYTES % (MANUAL) 0 % (3-13); SEGMENTED NEUTROPHILS % (MAN) 96 % (42-78); TOTAL CELLS COUNTED 100
[2019-07-10 06:42] LABS: HYPERSEGMENTED NEUTROPHILS PRESENT; PLATELET COMMENT ADEQUATE
[2019-07-10 06:43] LABS: ANISOCYTOSIS SLIGHT; POIKILOCYTOSIS SLIGHT; POLYCHROMASIA SLIGHT; STOMATOCYTES SLIGHT; TOXIC GRANULATION SLIGHT
[2019-07-10] MEDS: ACETYLCYSTEINE 20% SOLN 800 MG/4 ML VIAL.NEB NEB SCH (08:33)
[2019-07-10] MEDS: CETIRIZINE 10 MG TABLET PO SCH (09:30)
[2019-07-10] MEDS: PREDNISONE 20 MG TABLET PO SCH (09:30)
[2019-07-10] MEDS: GUAIFENESIN 600 MG TABLET.SA PO SCH (09:30)
[2019-07-10] MEDS: DIPHENOXYLATE HCL/ATROP SULF 2.5-0.025 MG TABLET PO SCH ×4 (09:30→21:31)
[2019-07-10] MEDS: MAGNESIUM OXIDE 400 MG TABLET PO SCH (09:30)
[2019-07-10] MEDS: BUSPIRONE HCL 10 MG TABLET PO SCH ×2 (09:30→21:31)
[2019-07-10] MEDS: ASCORBIC ACID 500 MG TABLET PO SCH ×2 (09:31→17:21)
[2019-07-10] MEDS: CEFEPIME HCL 2 GM in DEXTROSE 5%-WATER 50 ML IV SCH ×2 (09:32→21:35)
[2019-07-10] MEDS: LISINOPRIL 10 MG TABLET PO SCH (09:32)
[2019-07-10] MEDS: ZINC SULFATE 220 MG CAPSULE PO SCH (09:32)
[2019-07-10] MEDS: FUROSEMIDE 20 MG TABLET PO SCH (09:32)
[2019-07-10] MEDS: CHOLECALCIFEROL (D3) 400 UNIT TABLET PO SCH (10:09)
--- NOTE | 2019-07-10 11:02 | RADIOLOGY REPORT (SQ) ---
EXAM DESCRIPTION: CHEST 2 VIEWS IMAGES COMPLETED DATE/TIME: 07/10/2019 9:51 am REASON FOR STUDY: F/u PNA COMPARISON: 07/05/2019 NUMBER OF VIEWS: Two view TECHNIQUE: Frontal and lateral radiographic images of the chest acquired. LIMITATIONS: None. FINDINGS: LUNGS AND PLEURA: Diffuse ground-glass attenuation with overall improved aeration in both lungs. Small pleural effusions, right greater than left. MEDIASTINUM AND HILAR STRUCTURES: Stable heart size and mediastinal structures. HEART AND VASCULAR STRUCTURES: Stable appearance. SUPPORT DEVICES: Unchanged position of right-sided port. BONES: No acute findings. OTHER: No other significant finding. IMPRESSION: Improving pneumonia. TECHNICAL DOCUMENTATION: JOB ID: [id number] 2010 [employer]- All Rights Reserved Reading location - IP/workstation name: [email or web address]
--- NOTE | 2019-07-10 14:58 | PDOC PROGRESS REPORT ---
Subjective Progress Note for:: 07/10/19 Subjective:: Wants to go home, she feels better. No nausea vomiting. However did discuss with the Patient regarding hr wbc and the need to see it stabilize or decrease prior to dc Reason For Visit: PNEUMONIA,NSTEMI (NON-ST ELEVATED MYOCARDIAL Physical Exam Vital Signs: Temp Pulse Resp BP Pulse Ox 98.0 F 65 16 132/52 H 96 07/10/19 08:45 07/10/19 14:10 07/10/19 14:10 07/10/19 08:45 07/10/19 14:10 Intake & Output 07/09/19 07/10/19 07/11/19 06:59 06:59 06:59 Intake Total 1880 1412 50 Output Total 275 825 Balance 1605 587 50 Weight 55.3 kg 55.8 kg General appearance: PRESENT: no acute distress, thin Head exam: PRESENT: atraumatic Neck exam: PRESENT: full ROM. ABSENT: JVD Respiratory exam: PRESENT: clear to auscultation heydi, unlabored. ABSENT: wheezes Cardiovascular exam: PRESENT: RRR, +S1, +S2 GI/Abdominal exam: PRESENT: other - ileostomy bag Extremities exam: ABSENT: calf tenderness Results Laboratory Results: 07/10/19 05:50 07/08/19 06:25 07/10/19 05:50 WBC 17.0 H RBC 3.54 L Hgb 11.3 L Hct 33.5 L MCV 95 MCH 31.9 MCHC 33.7 RDW 16.2 H Plt Count 310 Seg Neutrophils % Not Reportable 07/04/19 21:21 Blood Blood Culture - Final NO GROWTH IN 5 DAYS 07/04/19 18:22 Blood Blood Culture - Final NO GROWTH IN 5 DAYS 07/04/19 07/04/19 07/05/19 18:22 18:22 00:53 Creatine Kinase 45 CK-MB (CK-2) 2.59 Troponin I 0.204 NT-Pro-B Natriuret Pep 32773 H 07/05/19 07/05/19 07/05/19 00:53 00:53 05:17 Creatine Kinase 33 41 CK-MB (CK-2) 2.13 Troponin I 0.246 NT-Pro-B Natriuret Pep 07/05/19 07/05/19 07/05/19 05:17 15:11 15:11 Creatine Kinase 33 CK-MB (CK-2) 2.95 1.89 Troponin I 0.192 0.185 NT-Pro-B Natriuret Pep 07/08/19 06:25 Creatine Kinase CK-MB (CK-2) Troponin I 0.040 NT-Pro-B Natriuret Pep Impressions: Chest X-Ray 07/10/19 00:00 IMPRESSION: Improving pneumonia. Assessment and Plan - Diagnosis (1) Chronic pain Qualifiers: Chronic pain type: other chronic pain Qualified Code(s): G89.29 - Other chronic pain Is this a current diagnosis for this admission?: Yes (2) Congestive heart failure Qualifiers: Heart failure type: diastolic Heart failure chronicity: acute Qualified Code(s): I50.31 - Acute diastolic (congestive) heart failure Is this a current diagnosis for this admission?: Yes (3) Elevated troponin Is this a current diagnosis for this admission?: Yes (4) Pneumonia Qualifiers: Pneumonia type: due to unspecified organism Laterality: bilateral Lung location: unspecified part of lung Qualified Code(s): J18.9 - Pneumonia, unspecified organism Is this a current diagnosis for this admission?: Yes (5) COPD (chronic obstructive pulmonary disease) Qualifiers: COPD type: unspecified COPD Qualified Code(s): J44.9 - Chronic obstructive pulmonary disease, unspecified Is this a current diagnosis for this admission?: Yes (6) Chronic pain syndrome Is this a current diagnosis for this admission?: Yes (7) Ileostomy present Is this a current diagnosis for this admission?: Yes - Plan Summary Summary: Patient admitted with healthcare associated pneumonia after being recently discharged from the hospital for treatment of acute bronchitis, COPD exacerb ation and acute on chronic bronchitis. She continues complain of abdominal discomfort likely from her recent pancreatitis patient does have an output ileostomy in place secondary to complicated Crohn's disease with colostomy tested negative for COVID-19. Currently on vancomycin and cefepime day 4. Will look to de-escalate antibiotics as appropriate Pneumonia healthcare associated Congestive heart failure COPD exacerbation currently on Solu-Medrol will change to oral prednisone Elevated troponin secondary to demand mismatch related to her acute respiratory failure and multifocal pneumonia. She was treated with full dose Lovenox for 48 hours and currently on aspirin and prophylactic heparin Anemia this was 1 unit packed red blood cells This is secondary to pneumonia resolved Chronic pain syndrome Hypokalemia we will continue to monitor ileostomy Leukocytosis likely secondary to steroids. I have changed her steroids from Solu-Medrol to prednisone. I will follow-up with CBC in a.m. If she remains stable she can be discharged in a.m. 07/09 patient's white count actually went up to 17,000 today. Chest x-ray obtained reveals resolving pneumonia. Clinically patient does definitely appear to be better. She is clinically stable. Her breathing is much improved. I continue to think that her leukocytosis is secondary to the IV steroids that she had been on and now currently she is on 40 mg of steroids which I will go ahead and decrease further today. At this time it is prudent to at least see the white count either stabilize or go down prior to discharge and so we will keep patient in hospital and continue to monitor and if she remains stable tomorrow she will likely be discharged home
[2019-07-10] MEDS: PANTOPRAZOLE SODIUM 40 MG TABLET.DR PO SCH (18:46)
[2019-07-10] MEDS: ALBUTEROL SULFATE HFA (90 MCG/PUFF) 200 PUFF/8.5 GM MDI IH PRN (19:59)
[2019-07-10] MEDS: AMITRIPTYLINE HCL 25 MG TABLET PO SCH (21:30)
[2019-07-10] MEDS: MELATONIN 3 MG TABLET PO SCH (21:30)
[2019-07-10] MEDS: ROPINIROLE HCL 1 MG TABLET PO SCH (21:31)
[2019-07-10] MEDS: ASPIRIN 81 MG TABLET, CHEWABLE PO SCH (21:31)
[2019-07-11] MEDS: IPRATROPIUM/ALBUTEROL 0.5-2.5 MG/3 ML AMPUL NEB SCH ×2 (02:15→08:36)
[2019-07-11] MEDS: PANTOPRAZOLE SODIUM 40 MG TABLET.DR PO SCH (05:17)
[2019-07-11] MEDS: GABAPENTIN 300 MG CAPSULE PO SCH (05:17)
[2019-07-11] MEDS: HEPARIN SOD (PORCINE) 5,000 UNIT/ML 1 ML VIAL SUBCUT SCH (05:18)
[2019-07-11] MEDS: ACETAMINOPHEN 325 MG TABLET PO PRN (05:25)
[2019-07-11 05:55] LABS: HEMATOCRIT 28.2 % (36.0-47.0); HEMOGLOBIN 9.5 g/dL (12.0-15.5); MEAN CORPUSCULAR HGB CONC 33.7 g/dL (32.0-36.0); MEAN CORPUSCULAR VOLUME 95 fl (80-97); PLATELET COUNT 245 10^3/uL (150-450); RED BLOOD COUNT 2.97 10^6/uL (3.72-5.28)
[2019-07-11 06:06] LABS: ANION GAP 8 (5-19); BLOOD UREA NITROGEN 21 mg/dL (7-20); CALCIUM 8.2 mg/dL (8.4-10.2); CARBON DIOXIDE 21 mmol/L (22-30); CHLORIDE 106 mmol/L (98-107); GLUCOSE 87 mg/dL (75-110); POTASSIUM 3.3 mmol/L (3.6-5.0)
[2019-07-11 06:21] LABS: ABSOLUTE LYMPHOCYTES# (MANUAL) 2.3 10^3/uL (0.5-4.7); ABSOLUTE MONOCYTES # (MANUAL) 0.4 10^3/uL (0.1-1.4); BAND NEUTROPHILS % (MANUAL) 4 % (3-5); BASOPHILS % (MANUAL) 0 % (0-2); EOSINOPHILS % (MANUAL) 0 % (0-6); LYMPHOCYTES % (MANUAL) 18 % (13-45); MONOCYTES % (MANUAL) 3 % (3-13); SEGMENTED NEUTROPHILS % (MAN) 75 % (42-78); TOTAL CELLS COUNTED 100
[2019-07-11 06:22] LABS: ANISOCYTOSIS 1+; PLATELET COMMENT ADEQUATE
[2019-07-11] MEDS ORDERED: PREDNISONE 20 MG TABLET PO SCH (10:00)
[2019-07-11] MEDS: DIPHENOXYLATE HCL/ATROP SULF 2.5-0.025 MG TABLET PO SCH (10:04)
[2019-07-11] MEDS: LISINOPRIL 10 MG TABLET PO SCH (10:04)
[2019-07-11] MEDS: BUSPIRONE HCL 10 MG TABLET PO SCH (10:05)
[2019-07-11] MEDS: MAGNESIUM OXIDE 400 MG TABLET PO SCH (10:05)
[2019-07-11] MEDS: ASCORBIC ACID 500 MG TABLET PO SCH (10:05)
[2019-07-11] MEDS: FUROSEMIDE 20 MG TABLET PO SCH (10:06)
[2019-07-11] MEDS: CETIRIZINE 10 MG TABLET PO SCH (10:06)
[2019-07-11] MEDS: CEFEPIME HCL 2 GM in DEXTROSE 5%-WATER 50 ML IV SCH (10:07)
--- NOTE | 2019-07-11 10:35 | PDOC DISCHARGE SUMMARY ---
Impression - Admit/DC Date/PCP Admission Date/Primary Care Provider: 07/04/19 23:46 ELEUTERIO LANG PA-C Discharge Date: 07/11/19 - Discharge Diagnosis (1) Chronic pain Is this a current diagnosis for this admission?: Yes (2) Congestive heart failure Is this a current diagnosis for this admission?: Yes (3) Elevated troponin Is this a current diagnosis for this admission?: Yes (4) Pneumonia Is this a current diagnosis for this admission?: Yes (5) COPD (chronic obstructive pulmonary disease) Is this a current diagnosis for this admission?: Yes (6) Chronic pain syndrome Is this a current diagnosis for this admission?: Yes (7) Ileostomy present Is this a current diagnosis for this admission?: Yes (8) NSTEMI (non-ST elevated myocardial infarction) Is this a current diagnosis for this admission?: Yes - Additional Information Resuscitation Status: Full Code Discharge Diet: Cardiac Discharge Activity: Activity As Tolerated, Balance Activity w/Rest, Weigh Daily Referrals: [facility] [Outside] (PATIENT WILL BE FOLLOWED BY [facility]. UPON D/C ON SELF QUARANTINE. ONCE CLEARED BY THEM PATIENT MAY MAKE A FOLLOW UP APPT. WITH PCP.) ELEUTERIO LANG PA-C [Primary Care Provider] - Follow up as needed ANALY FLORIAN MD [ACTIVE PROVISIONAL STAFF] - (Follow up within 1 week.) Prescriptions: Amitriptyline HCl [Elavil 25 mg Tablet] 25 mg PO QHS #30 tablet Oxycodone HCl/Acetaminophen [Percocet 5-325 mg Tablet] 1 tab PO Q6HP PRN #14 PRN Reason: For Pain Prednisone [Deltasone 20 mg Tablet] 20 mg PO DAILY #3 tablet Furosemide [Lasix 20 mg Tablet] 20 mg PO DAILY #30 tablet Gabapentin [Neurontin 300 mg Capsule] 600 mg PO Q8 #30 capsule Lisinopril [Prinivil 10 mg Tablet] 10 mg PO DAILY #30 tablet Home Medications: Albuterol Sulfate [Proair HFA Inhalation Aerosol 8.5 gm MDI] 2 puff IH Q6HP PRN 10/23/18 Buspirone HCl [Buspar 15 mg Tablet] 30 mg PO Q12 10/23/18 Cetirizine HCl [Zyrtec 10 mg Tablet] 10 mg PO DAILY 10/23/18 Cyanocobalamin (Vitamin B-12) [Vitamin B-12 1000 mcg Tablet] 1,000 mcg PO DAILY 10/23/18 Ergocalciferol (Vitamin D2) [Drisdol 50,000 unit (1.25MG) Capsule] 50,000 unit PO TH@1000 10/23/18 Magnesium Oxide [Mag-Ox 400 mg Tablet] 400 mg PO DAILY 10/23/18 Omeprazole 40 mg PO QAM 10/23/18 Ondansetron HCl [Zofran 4 mg Tablet] 4 mg PO BID 10/23/18 Trazodone HCl [Desyrel 50 mg Tablet] 50 mg PO QHS 10/23/18 Diphenoxylate HCl/Atrop Sulf [Lomotil 2.5 mg Tablet] 1 tab PO QIDP PRN 06/29/19 Fluoxetine HCl [Prozac] 40 mg PO [id number] 06/29/19 Propranolol HCl [Inderal 10 mg Tablet] 10 mg PO BIDP PRN 06/29/19 Ropinirole HCl 1 mg PO QHS 06/29/19 Suvorexant [Belsomra] 15 mg PO HSP PRN 06/29/19 Cyclobenzaprine HCl [Flexeril 10 mg Tablet] 10 mg PO QAM 07/05/19 Fluticasone/Vilanterol [Breo 100-25 Mcg Ellipta 14 Dose/Dpi] 1 puff IH DAILY 07/05/19 Nicotine [Nicoderm 7 mg/24 Hr Transdermal Patch] 1 each TD DAILYP PRN 07/05/19 Ondansetron [Zofran Odt 4 mg Tablet] 4 mg PO BID 07/05/19 Amitriptyline HCl [Elavil 25 mg Tablet] 25 mg PO QHS #30 tablet 07/11/19 Ascorbic Acid [Vitamin C 500 mg Tablet] 1,000 mg PO BID tablet 07/11/19 Aspirin [Aspirin 81 mg Chewable Tablet] 81 mg PO QHS tab.chew 07/11/19 Furosemide [Lasix 20 mg Tablet] 20 mg PO DAILY #30 tablet 07/11/19 Gabapentin [Neurontin 300 mg Capsule] 600 mg PO Q8 #30 capsule 07/11/19 Lisinopril [Prinivil 10 mg Tablet] 10 mg PO DAILY #30 tablet 07/11/19 Oxycodone HCl/Acetaminophen [Percocet 5-325 mg Tablet] 1 tab PO Q6HP PRN #14 07/11/19 Prednisone [Deltasone 20 mg Tablet] 20 mg PO DAILY #3 tablet 07/11/19 Zinc Sulfate [Zinc-220 Capsule] 440 mg PO DAILY capsule 07/11/19 History of Present Illiness History of Present Illness: DONALD ALBRIGHT is a 69 year old female Patient admitted with healthcare associated pneumonia after being recently discharged from the hospital for treatment of acute bronchitis, COPD exacerbation and acute on chronic bronchitis. She was also found to have an elevated troponin and so was seen by cardiology for evaluation. She was felt to have a demand mismatch ischemia. Hospital Course Hospital Course: She was recently discharged from the hospital prior to being readmitted. She was started on vancomycin as well as cefepime. This with subsequently de- escalated as patient continued to improve. Follow-up chest x-ray done on July 09 showed resolving pneumonia. She has been hemodynamically stable. She was found to have elevated troponin that was thought to be from demand ischemia from her respiratory illness. She was seen by cardiology for evaluation and she will need outpatient follow-up for further management. Echocardiogram revealed a normal left ventricular systolic function with ejection fraction of 65 to 70%. Patient was seen by cardiology and she was thought to have a non-STEMI secondary to demand mediated ischemia in the setting of COPD, hypoxia and healthcare associated pneumonia. Acute coronary syndrome was ruled out. Outpatient risk stratification will be performed. Patient was also treated for right lower lobe pneumonia. Patient was also found to be anemic and she received 1 unit of packed red blood cell. Hemoglobin has been relatively stable. This is likely anemia of chronic disease but will suggest outpatient follow-up. She also had hypokalemia which was replaced. She still has a slight leukocytosis however this is likely a steroid effect. Patient has no evidence of any acute deterioration or worsening infection. She has been hemodynamically stable. Physical Exam Vital Signs: Temp Pulse Resp BP Pulse Ox 98.3 F 71 16 108/44 L 96 07/11/19 10:07/11/19 10:00 07/11/19 10:00 07/11/19 10:07/11/19 10:00 Intake & Output 07/10/19 07/11/19 07/12/19 06:59 06:59 06:59 Intake Total 1412 1802 Output Total 825 Balance 587 1802 Weight 55.8 kg 55.5 kg General appearance: PRESENT: no acute distress, thin Head exam: PRESENT: normocephalic Eye exam: PRESENT: conjunctiva pink, EOMI, PERRLA. ABSENT: scleral icterus Mouth exam: PRESENT: tongue midline Neck exam: ABSENT: carotid bruit, JVD, lymphadenopathy, thyromegaly Respiratory exam: PRESENT: clear to auscultation heydi, unlabored. ABSENT: rales, rhonchi, wheezes Cardiovascular exam: PRESENT: RRR, +S1, +S2. ABSENT: diastolic murmur, rubs, systolic murmur Pulses: PRESENT: normal dorsalis pedis pul Vascular exam: PRESENT: normal capillary refill GI/Abdominal exam: PRESENT: normal bowel sounds, soft, other - Ileostomy with stool. ABSENT: distended, guarding, mass, organolmegaly, rebound, tenderness Rectal exam: PRESENT: deferred Extremities exam: PRESENT: full ROM. ABSENT: calf tenderness, clubbing, pedal edema Neurological exam: PRESENT: alert, awake, oriented to person, oriented to place, oriented to time, oriented to situation, CN II-XII grossly intact. ABSENT: motor sensory deficit Psychiatric exam: PRESENT: appropriate affect, normal mood. ABSENT: homicidal ideation, suicidal ideation Skin exam: PRESENT: dry, intact, warm. ABSENT: cyanosis, rash Results Laboratory Results: WBC 13.0 10^3/uL (4.0-10.5) H 07/11/19 05:20 RBC 2.97 10^6/uL (3.72-5.28) L 07/11/19 05:20 Hgb 9.5 g/dL (12.0-15.5) L 07/11/19 05:20 Hct 28.2 % (36.0-47.0) L 07/11/19 05:20 MCV 95 fl (80-97) 07/11/19 05:20 MCH 32.0 pg (27.0-33.4) 07/11/19 05:20 MCHC 33.7 g/dL (32.0-36.0) 07/11/19 05:20 RDW 16.0 % (11.5-14.0) H 07/11/19 05:20 Plt Count 245 10^3/uL (150-450) 07/11/19 05:20 Lymph % (Auto) Not Reportable 07/11/19 05:20 [place] % (Auto) Not Reportable 07/11/19 05:20 Eos % (Auto) Not Reportable 07/11/19 05:20 Baso % (Auto) Not Reportable 07/11/19 05:20 Reticulocyte # 0.040 10^6/uL (0.028-0.122) 07/05/19 00:53 Absolute Neuts (auto) Not Reportable 07/11/19 05:20 Absolute Lymphs (auto) Not Reportable 07/11/19 05:20 Absolute Monos (auto) Not Reportable 07/11/19 05:20 Absolute Eos (auto) Not Reportable 07/11/19 05:20 Absolute Basos (auto) Not Reportable 07/11/19 05:20 Total Counted 100 07/11/19 05:20 Seg Neutrophils % Not Reportable 07/11/19 05:20 Seg Neuts % (Manual) 75 % (42-78) 07/11/19 05:20 Band Neutrophils % 4 % (3-5) 07/11/19 05:20 Lymphocytes % (Manual) 18 % (13-45) 07/11/19 05:20 Monocytes % (Manual) 3 % (3-13) 07/11/19 05:20 Eosinophils % (Manual) 0 % (0-6) 07/11/19 05:20 Basophils % (Manual) 0 % (0-2) 07/11/19 05:20 Abs Neuts (Manual) 10.3 10^3/uL (1.7-8.2) H 07/11/19 05:20 Abs Lymphs (Manual) 2.3 10^3/uL (0.5-4.7) 07/11/19 05:20 Abs Monocytes (Manual) 0.4 10^3/uL (0.1-1.4) 07/11/19 05:20 Absolute Eos (Manual) 0.0 10^3/uL (0.0-0.6) 07/11/19 05:20 Abs Basophils (Manual) 0.0 10^3/uL (0.0-0.2) 07/11/19 05:20 Hypersegmented Neuts PRESENT 07/10/19 05:50 Toxic Granulation SLIGHT 07/10/19 05:50 Clumped Platelets PRESENT 07/09/19 05:08 Large Platelets PRESENT 07/04/19 18:22 Platelet Comment ADEQUATE 07/11/19 05:20 Polychromasia SLIGHT 07/10/19 05:50 Poikilocytosis SLIGHT 07/10/19 05:50 Anisocytosis 1+ 07/11/19 05:20 Stomatocytes SLIGHT 07/10/19 05:50 ESR 77 mm/hr (0-30) H 07/05/19 00:53 Retic Count (auto) 1.77 % (0.66-2.85) 07/05/19 00:53 PT 15.0 SEC (11.4-15.4) 07/04/19 18: INR 1.18 07/04/19 18: D-Dimer 2.53 ug/mL (0.00-0.50) H 07/05/19 00:53 Carbonic Acid 1.03 mmol/L (1.05-1.35) L 07/06/19 10:03 HCO3/H2CO3 Ratio 20:1 07/06/19 10:03 ABG pH 7.40 (7.35-7.45) 07/06/19 10:03 ABG pCO2 34.3 mmHg (35-45) L 07/06/19 10:03 ABG pO2 83.9 mmHg (80-100) 07/06/19 10:03 ABG HCO3 20.9 mmol/L (20-24) 07/06/19 10:03 ABG Total CO2 22.0 mmol/L (21-25) 07/06/19 10:03 ABG O2 Saturation 96.4 % (94-98) 07/06/19 10:03 ABG Base Excess -3.3 mmol/L 07/06/19 10:03 VBG pH 7.25 (7.30-7.42) L 07/04/19 18:22 VBG pCO2 42.5 mmHg (35-63) 07/04/19 18:22 VBG HCO3 18.1 mmol/L (20-32) L 07/04/19 18:22 VBG Base Excess -8.8 mmol/L 07/04/19 18:22 FiO2 30% 07/06/19 10:03 Sodium 134.8 mmol/L (137-145) L 07/11/19 05:20 Potassium 3.3 mmol/L (3.6-5.0) L 07/11/19 05:20 Chloride 106 mmol/L (98-107) 07/11/19 05:20 Carbon Dioxide 21 mmol/L (22-30) L 07/11/19 05:20 Anion Gap 8 (5-19) 07/11/19 05:20 BUN 21 mg/dL (7-20) H 07/11/19 05:20 Creatinine 1.08 mg/dL (0.52-1.25) 07/11/19 05:20 Est GFR ( Amer) > 60 (>60) 07/11/19 05:20 Est GFR (MDRD) Non-Af 51 (>60) L 07/11/19 05:20 Glucose 87 mg/dL (75-110) 07/11/19 05:20 Lactic Acid 0.9 mmol/L (0.7-2.1) 07/05/19 15:11 Calcium 8.2 mg/dL (8.4-10.2) L 07/11/19 05:20 Magnesium 1.8 mg/dL (1.6-2.3) 07/06/19 08:06 Iron 30.1 ug/dL (37-170) L 07/05/19 00:53 TIBC 255 ug/dL (250-450) 07/05/19 00:53 % Saturation 12 % 07/05/19 00:53 Ferritin 128.00 ng/mL (11.1-264.0) 07/05/19 05:35 Total Bilirubin 0.5 mg/dL (0.2-1.3) 07/06/19 08:06 Direct Bilirubin 0.1 mg/dL (0.0-0.4) 07/06/19 08:06 Neonat Total Bilirubin Not Reportable 07/06/19 08:06 Neonat Direct Bilirubin Not Reportable 07/06/19 08:06 Neonat Indirect Bili Not Reportable 07/06/19 08:06 AST 18 U/L (14-36) 07/06/19 08:06 ALT 8 U/L (<35) 07/06/19 08:06 Alkaline Phosphatase 85 U/L (38-126) 07/06/19 08:06 Creatine Kinase 33 U/L (30-135) 07/05/19 15:11 CK-MB (CK-2) 1.89 ng/mL (<4.55) 07/05/19 15:11 Troponin I 0.040 ng/mL 07/08/19 06:25 C-Reactive Protein 353.6 mg/L (<10.0) H 07/05/19 05:35 NT-Pro-B Natriuret Pep 32611 pg/mL (<125) H 07/05/19 00:53 Total Protein 5.1 g/dL (6.3-8.2) L 07/06/19 08:06 Albumin 2.5 g/dL (3.5-5.0) L 07/06/19 08:06 Lipase 293.8 U/L (23-300) 07/04/19 18:22 Vitamin B12 871.0 pg/mL (239-931) 07/05/19 00:53 Folate 19.90 ng/mL (>2.76) 07/05/19 00:53 Urine Color YELLOW 07/05/19 14:00 Urine Appearance CLEAR 07/05/19 14:00 Urine pH 6.0 (5.0-9.0) 07/05/19 14:00 Ur Specific [place] 1.028 07/05/19 14:00 Urine Protein 30 mg/dL (NEGATIVE) H 07/05/19 14:00 Urine Glucose (UA) NEGATIVE mg/dL (NEGATIVE) 07/05/19 14:00 Urine Ketones TRACE mg/dL (NEGATIVE) H 07/05/19 14:00 Urine Blood SMALL (NEGATIVE) H 07/05/19 14:00 Urine Nitrite NEGATIVE (NEGATIVE) 07/05/19 14:00 Urine Bilirubin NEGATIVE (NEGATIVE) 07/05/19 14:00 Urine Urobilinogen NEGATIVE mg/dL (<2.0) 07/05/19 14:00 Ur Leukocyte Esterase NEGATIVE (NEGATIVE) 07/05/19 14:00 Urine WBC (Auto) 2 /HPF 07/05/19 14:00 Urine RBC (Auto) 0 /HPF 07/05/19 14:00 Squamous Epi Cells Auto <1 /HPF 07/05/19 14:00 Urine Mucus (Auto) RARE /LPF 07/05/19 14:00 Urine Ascorbic Acid NEGATIVE (NEGATIVE) 07/05/19 14:00 Stool Occult Blood NEGATIVE (NEGATIVE) 07/06/19 03:21 Time Trough Drawn 1635 07/07/19 16:35 Vancomycin Trough 11.5 ug/mL (5.0-20.0) 07/07/19 16:35 Urine Opiates Screen NEGATIVE 07/05/19 14:00 Urine Methadone Screen NEGATIVE 07/05/19 14:00 Ur Barbiturates Screen NEGATIVE 07/05/19 14:00 Ur Phencyclidine Scrn NEGATIVE 07/05/19 14:00 Ur Amphetamines Screen NEGATIVE 07/05/19 14:00 U Benzodiazepines Scrn NEGATIVE 07/05/19 14:00 Urine Cocaine Screen NEGATIVE 07/05/19 14:00 U Marijuana (THC) Screen NEGATIVE 07/05/19 14:00 COVID-19 Source NASOPHARYNGEAL 07/05/19 00:25 COVID-19 (JUDI) NOT DETECTED 07/05/19 00:25 Influenza A (Rapid) NEGATIVE (NEGATIVE) 07/04/19 18:22 Influenza B (Rapid) NEGATIVE (NEGATIVE) 07/04/19 18:22 Group A Strep Rapid NEGATIVE (NEGATIVE) 07/04/19 18:22 Blood Type A POSITIVE 07/05/19 05:17 Antibody Screen NEGATIVE 07/05/19 05:17 Crossmatch See Detail 07/05/19 05:17 07/04/19 07/05/19 07/05/19 18:22 00:53 00:53 CK-MB (CK-2) 2.59 2.13 Troponin I 0.204 0.246 NT-Pro-B Natriuret Pep 19173 H 07/05/19 07/05/19 07/08/19 05:17 15:11 06:25 CK-MB (CK-2) 2.95 1.89 Troponin I 0.192 0.185 0.040 NT-Pro-B Natriuret Pep Impressions: Chest X-Ray 07/04/19 21:30 IMPRESSION: Progressive interstitial changes diffusely bilaterally. Progressive mild fluffy alveolar space disease, bilaterally. Presumed infectious inflammatory. Chest X-Ray 07/05/19 00:00 IMPRESSION: Persistent diffuse bilateral interstitial opacities with mildly increased bibasilar opacities and small bilateral effusions suggestive of edema. Superimposed infection is not excluded. Chest X-Ray 07/10/19 00:00 IMPRESSION: Improving pneumonia. Plan Time Spent: Greater than 30 Minutes Stroke Is this a Stroke Patient?: No Acute Heart Failure - Is this a Heart Failure Patient?: No
[2019-07-11 11:31] VITALS: BP 118/89
== END 2019-07-11 11:45 | disposition home or self-care (01) | DRG 871 ==
LOC: ER 18:07 → EH 23:46 → 5 07-05 01:01 → 3S 07-07 15:20
PROVIDERS: ADMIT Internal Medicine; ATTEND Internal Medicine
PROC: 30233N1 Transfusion of Nonautologous Red Blood Cells into Peripheral Vein, Percutaneous Approach (ICD-10-PCS; principal; 2019-07-04)
PROC: 5A09357 Assistance with Respiratory Ventilation, Less than 24 Consecutive Hours, Continuous Positive Airway Pressure (ICD-10-PCS; 2019-07-05)
DX: A41.9 Sepsis, unspecified organism (principal); J18.9 Pneumonia, unspecified organism; I21.A1 Myocardial infarction type 2; I50.31 Acute diastolic (congestive) heart failure; J44.0 Chronic obstructive pulmonary disease with (acute) lower respiratory infection; J44.1 Chronic obstructive pulmonary disease with (acute) exacerbation; K50.90 Crohn's disease, unspecified, without complications; D63.8 Anemia in other chronic diseases classified elsewhere; Z66 Do not resuscitate; F32.9 Major depressive disorder, single episode, unspecified; F17.200 Nicotine dependence, unspecified, uncomplicated; K21.9 Gastro-esophageal reflux disease without esophagitis; M19.90 Unspecified osteoarthritis, unspecified site; F41.1 Generalized anxiety disorder; Y95 Nosocomial condition; R79.89 Other specified abnormal findings of blood chemistry; E87.6 Hypokalemia; G89.4 Chronic pain syndrome; R06.82 Tachypnea, not elsewhere classified; Z79.899 Other long term (current) drug therapy; Z88.6 Allergy status to analgesic agent; Z03.818 Encounter for observation for suspected exposure to other biological agents ruled out; Z93.3 Colostomy status; Z82.61 Family history of arthritis; Z82.49 Family history of ischemic heart disease and other diseases of the circulatory system
CPT/HCPCS: 36415; 36430; 36600; 71045; 71046; 71275; 80048; 80053; 80202; 80307; 81001; 82272; 82550; 82553; 82607; 82728; 82746; 82803; 83540; 83550; 83605; 83690; 83735; 83880; 84132; 84484; 85025; 85027; 85045; 85379; 85610; 85652; 86140; 86850; 86900; 86901; 86920; 87040; 87045; 87070; 87205; 87635; 87804; 87880; 93005; 93010; 93306; 94640; 94660; 94799; 96361; 96365; 96367; 96375; 99285; C1887; J0692; J1642; J1644; J1650; J1756; J1885; J1940; J2060; J2543; J2920; J3370; J3480; J3490; J7030; J7060; J7512; J7620; P9016

== ENCOUNTER → 2019-11-14 | Outpatient (CLI) | payer MEDICARE, MEDICAID ==
[~2019-11-14] MED LIST: REGADENOSON INJ 0.4 MG/5 ML DISP.SYRIN IV ONE
--- NOTE | 2019-11-14 11:29 | DRAGON STRESS TEST REPORT ---
Name: Sienna Ashby : Jun Date: NOV 30 The patient underwent a stress/rest, single isotope SPECT Imaging with pharmacological stress and gated SPECT imaging on for evaluation of Type II VA. The patient underwent infusion of regadnoson 0.4mg IV using the standard protocol. The heart rate was 78 beats per minute at baseline and increased to 84 beats during the infusion of regadenoson. The resting blood pressure was 123/69 mm/Hg and decreased to 108/62 mm/Hg, which is a normal response. The patient complained of no symptoms during the procedure. The resting electrocardiogram demonstrated NSR. Stress electrocardiogram is non- diagnostic in the setting of pharmacological stress. Myocardial perfusion imaging was performed at rest following the injection of 10.66 mCi of sestamibi. At peak pharmacolgic effect, the patient was injected with 32.2 mCi of sestamibi. Gating post-stress tomographic imaging was performed 60 minutes after stress. Findings The overall quality of the study is excellent. Raw images demonstrate breast attenuation artifact. Left ventricular cavity is noted to be normal on the rest and stress studies. Resting SPECT images demonstrate a very small sized, of mild intensity perfusion defect in the anteroseptal segment. The stress images very small sized, of mild intensity perfusion defect in the anteroseptal segment. Gated SPECT imaging reveals normal myocardial thickening and wall motion. The left ventricular ejection fraction was calculated to be 50% however it appears to be >55% on visual inspection. Impression -Myocardial perfusion imaging is normal with breast attenuation artifact. -There is no scintigraphic evidence of ischemia or infarct. -Overall left ventricular systolic function was normal without wall motion abnormalities. -There are no prior studies for comparison. [facility]
== END ==
LOC: RAD 06:26
PROVIDERS: ATTEND Internal Medicine Cardiovascular Disease
DX: R07.89 Other chest pain (principal)
CPT/HCPCS: 93017; 78452; A9500; J2785; Q9969